=== PATIENT | female | born 1970 | race Caucasian/White ===

== ENCOUNTER 2020-02-21 08:16 | Emergency (ER) | payer OTHER, SELFPAY ==
--- NOTE | 2020-02-21 08:30 | ED.LOWEXIN ---
HPI - Extremity Injury (Lower) General Chief Complaint: Extremity Injury, Lower Stated Complaint: pain big toe left foot Time Seen by Provider: 02/21/20 08:29 Source: patient Mode of arrival: ambulatory Limitations: no limitations History of Present Illness HPI Narrative: Patient presents in a hard walking shoe, has a transmetarsal amputation with ulceration follow at wound clinic, now saying increased pain and swelling since Friday Related Data Previous Rx's Medication Instructions Recorded ciprofloxacin HCl [Cipro] 500 mg PO BID #20 tab 02/21/20 Allergies Allergy/AdvReac Type Severity Reaction Status Date / Time No Known Allergies Allergy Unverified 01/06/20 18:56 [No Known Allergies*] Review of Systems Constitutional: Constitutional: Reports no additional constitutional complaints Eyes: Eyes: Reports no additional eye complaints ENT: Denies dizziness Cardiovascular: Cardiovascular: Reports no additional cardiovascular complaints Respiratory: Respiratory: Reports as per HPI Gastrointestinal: Gastrointestinal: Reports no additional gastrointestinal complaints Genitourinary: Genitourinary: Reports no additional female genitourinary complaints Musculoskeletal: Musculoskeletal: Reports no additional musculoskeletal complaints Integumentary/Breasts: Skin/Breast: Denies rash Neurologic: Reports system reviewed and no additional complaints, except as documented, Denies dizziness and Denies Sensory deficit (Neuro) Psychiatric: Psychiatric: Denies anxiety [facility] Past Medical History Medical History Amputated toe of left foot High cholesterol Hypertension Insulin dependent diabetes mellitus Neuropathy Social History Social History Smoking Status: Never smoker Use of substances other than those prescribed or required for medical reasons: No Advance Directives: No Advance Directives Information Provided: No Physical Exam Vital Signs: Vital Signs: Vital Signs Temp Pulse Resp BP Pulse Ox 02/21/20 11:35 85 17 170/88 H 02/21/20 10:00 96 16 165/76 H 98 02/21/20 09:02 98.5 F 92 18 157/76 H 96 02/21/20 08:45 98.5 F 94 16 169/85 H 96 Body Mass Index 34.7 Const: General: healthy appearing Nutritional Appearance: average body habitus Orientation/consciousness: oriented to person and patient oriented x3 Limitations: no limitations HENMT: Head: Yes normal to inspection Ears: external ears normal General nose exam: Normal external nose present Mouth: Normal oral and palatal mucosa present and oropharynx normal Throat: Yes posterior oropharynx normal Eyes: General: appearance normal, both eyes and all related structures Neck: Other: supple Neck: Yes normal visual inspection Chest: Chest palpation & inspection: normal inspection of the chest Resp: Auscultation: clear to auscultation bilaterally Cardio: Jugular venous distension: no JVD Rate: regular rate Rhythm: regular rhythm Heart sounds: S1 normal heart sound present and S2 normal heart sound present GI: Inspection: Yes normal to inspection Palpation (GI): Soft to palpation, nontender and No hepatosplenomegaly present Auscultation: normal bowel sounds : General: Yes no CVA tenderness Back/Spine/Pelvis: Back: no CVA tenderness Skin: Other: let foot with transmetarasal amputation, foot ulceration, slight erythema to dorsal foot area Neuro: General: oriented to person and patient oriented x3 Cranial nerves: Yes CN's II-XII intact bilaterally Motor exam (neuro): 5/5 motor strength present throughout Sensory Exam: No Sensory deficit (Neuro) Extrem: General: Yes normal to inspection Psych: Appearance: grossly normal Course Course Course Narrative: discussed with Dr. Peguero will start patient on cipro and follow up with Dr. Peguero and wound care MDM - Extremity Injury (Lower) MDM Narrative Medical decision making narrative: no evidence of osteo or bone break down, patient not toxic Lab Data Result diagrams: 02/21/20 09:32 02/21/20 09:24 Labs: Lab Results 02/21/20 02/21/20 02/21/20 Range/Units 09:23 09:24 09:32 WBC 12.8 H (4.8-10.8) X10*3/uL RBC 4.03 L (4.20-5.50) X10*6/uL Hgb 10.9 L (12.0-16.0) g/dl Hct 33.6 L (37-47) % MCV 83.4 (80-98) fL MCH 27.0 (27.0-33.0) pg MCHC 32.4 (31.0-35.0) g/dl RDW 13.0 (11.0-16.0) % Plt Count 385 (160-400) X10*3/uL MPV 10.6 (9.4-12.3) fL Immature Gran % (Auto) 0.4 (0.0-0.4) % Neut % (Auto) 61.8 (45-73) % Lymph % (Auto) 24.8 (20-40) % [place] % (Auto) 9.1 (2-11) % Eos % (Auto) 3.0 (0-4) % Baso % (Auto) 0.9 (0-2) % Lymph # (Auto) 3.2 (1.2-4.9) X10*3/uL [place] # (Auto) 1.2 (0.1-1.2) X10*3/uL Eos # (Auto) 0.4 (0.0-0.4) X10*3/uL Baso # (Auto) 0.1 (0.0-0.2) X10*3/uL Abs Immat Gran (auto) 0.05 H (0.00-0.03) X10*3/uL Absolute Neuts (auto) 7.9 (2.0-8.3) X10*3/uL Absolute Nucleated RBC 0.000 (0.0-0.012) X10*3/uL Nucleated RBC % (auto) 0.0 (0.0-0.2) /100WBC ESR (0-20) MM/HR Sodium 134 L (135-145) mmol/L Potassium 4.4 (3.3-5.1) mmol/l Chloride 101 (96-108) mmol/L Carbon Dioxide 21 L (22-29) mmol/L Anion Gap 16 (12-20) BUN 14 (9-16) mg/dL Creatinine 1.23 (0.5-1.4) mg/dL Estim Creat Clear Calc 57.0 Estimated GFR 47 POC Glucose (60-115) mg/dL Random Glucose 461 H* (60-115) mg/dL Calcium 7.6 L (8.4-10.2) mg/dL C-Reactive Protein 11.62 H (< or = 0.50) mg/dL C-React Prot High Sens Cancelled 02/21/20 02/21/20 Range/Units 09:32 11:55 WBC (4.8-10.8) X10*3/uL RBC (4.20-5.50) X10*6/uL Hgb (12.0-16.0) g/dl Hct (37-47) % MCV (80-98) fL MCH (27.0-33.0) pg MCHC (31.0-35.0) g/dl RDW (11.0-16.0) % Plt Count (160-400) X10*3/uL MPV (9.4-12.3) fL Immature Gran % (Auto) (0.0-0.4) % Neut % (Auto) (45-73) % Lymph % (Auto) (20-40) % [place] % (Auto) (2-11) % Eos % (Auto) (0-4) % Baso % (Auto) (0-2) % Lymph # (Auto) (1.2-4.9) X10*3/uL [place] # (Auto) (0.1-1.2) X10*3/uL Eos # (Auto) (0.0-0.4) X10*3/uL Baso # (Auto) (0.0-0.2) X10*3/uL Abs Immat Gran (auto) (0.00-0.03) X10*3/uL Absolute Neuts (auto) (2.0-8.3) X10*3/uL Absolute Nucleated RBC (0.0-0.012) X10*3/uL Nucleated RBC % (auto) (0.0-0.2) /100WBC ESR 91 H (0-20) MM/HR Sodium (135-145) mmol/L Potassium (3.3-5.1) mmol/l Chloride (96-108) mmol/L Carbon Dioxide (22-29) mmol/L Anion Gap (12-20) BUN (9-16) mg/dL Creatinine (0.5-1.4) mg/dL Estim Creat Clear Calc Estimated GFR POC Glucose 326 H (60-115) mg/dL Random Glucose (60-115) mg/dL Calcium (8.4-10.2) mg/dL C-Reactive Protein (< or = 0.50) mg/dL C-React Prot High Sens Discharge Plan Discharge Clinical Impression: Diabetic foot infection Patient Disposition: Home, Self-Care Instructions: Diabetic Foot Ulcers (ED) Additional Instructions: Must see Dr. peguero and the wound clinic this week for follow up of foot infection Prescriptions: New ciprofloxacin HCl [Cipro] 500 mg tablet 500 mg PO BID Qty: 20 RF: 0 Referrals: Farhana Ellison MD [Primary Care Provider] - 2 days John Peguero MD [Physician] - 2 days
--- NOTE | 2020-02-21 08:42 | XR_ITS ---
EXAMINATION: XR FOOT, LEFT CLINICAL INFORMATION: Left foot amputation. Rule out osteomyelitis and gas COMPARISON: None TECHNIQUE: AP, lateral, and oblique views of the left foot. FINDINGS: There is amputation of left foot beyond the proximal metatarsals. There is a large soft tissue ulcer along the plantar aspect of the first digit. No bony erosive changes, periosteal thickening or lytic process seen. There is moderate soft tissue swelling with likely gas along the medial aspect of plantar foot. There is a small calcaneal heel spur. The ankle mortise and subtalar joints are normal. XR/XR foot LT min 3V IMPRESSION: Amputation of left foot beyond the proximal metatarsals. No bony erosive changes or periosteal thickening of lucency. 2 suspect gastroenteritis. There is an also seen along the dorsal aspect of the first proximal metatarsal. There is moderate soft tissue swelling and gas seen along the medial aspect of plantar foot question abscess. Correlate with CT.
[2020-02-21 08:45] VITALS: BP 169/85; PULSE 94; RESP 16; TEMP 36.9; O2SAT 96; BMI 34.7
[2020-02-21 09:02] VITALS: BP 157/76; PULSE 92; RESP 18; TEMP 36.9; O2SAT 96
[2020-02-21 09:38] LABS: MANUAL DIFF FLAG NO
[2020-02-21 09:40] LABS: Basophils Absolute Auto 0.1 X10*3/uL (0.0-0.2); Basophils Percent Auto 0.9 % (0-2); Eosinophils Absolute Auto 0.4 X10*3/uL (0.0-0.4); Hematocrit 33.6 % (37-47); Hemoglobin 10.9 g/dl (12.0-16.0); Imm Gran Abs Auto 0.05 X10*3/uL (0.00-0.03); Imm Gran Pct Auto 0.4 % (0.0-0.4); Lymphocytes Absolute Auto 3.2 X10*3/uL (1.2-4.9); Lymphocytes Percent Auto 24.8 % (20-40); Mean Corpuscular HGB Conc 32.4 g/dl (31.0-35.0); Mean Corpuscular Volume 83.4 fL (80-98); Mean Platelet Volume 10.6 fL (9.4-12.3); Monocytes Absolute Auto 1.2 X10*3/uL (0.1-1.2); Monocytes Percent Auto 9.1 % (2-11); Neutrophils Absolute Auto 7.9 X10*3/uL (2.0-8.3); Neutrophils Percent Auto 61.8 % (45-73); Platelet Count 385 X10*3/uL (160-400); Red Blood Count 4.03 X10*6/uL (4.20-5.50); White Blood Count 12.8 X10*3/uL (4.8-10.8)
[2020-02-21 10:00] VITALS: BP 165/76; PULSE 96; RESP 16; O2SAT 98
[2020-02-21 10:30] LABS: Anion Gap 16 (12-20); Blood Urea Nitrogen 14 mg/dL (9-16); C Reactive Protein 11.62 mg/dL (< or = 0.50); Calcium 7.6 mg/dL (8.4-10.2); Carbon Dioxide 21 mmol/L (22-29); Chloride 101 mmol/L (96-108); Estimated Glomerular Filt Rate 47; Glucose Random 461 mg/dL (60-115); Potassium 4.4 mmol/l (3.3-5.1); Sodium 134 mmol/L (135-145)
[2020-02-21 10:41] LABS: Erythrocyte Sedimentation Rate 91 MM/HR (0-20)
[2020-02-21] MEDS: Insulin Regular, Human 100 UNIT/ML 3 ML VIAL 10 UNIT SUBCUT (11:04)
[2020-02-21] MEDS: levoFLOXacin 500 MG TABLET PO (11:04)
[2020-02-21] MEDS: Ketorolac Tromethamine 60 MG/2 ML VIAL IM (11:05)
[2020-02-21 11:35] VITALS: BP 170/88; PULSE 85; RESP 17
[2020-02-21 11:58] LABS: Glucose, Whole Blood 326 mg/dL (60-115)
== END 2020-02-21 13:40 | disposition home or self-care (01) ==
PROVIDERS: Emergency Provider Emergency Medicine; PCP Internal Medicine
DX: L08.9 Local infection of the skin and subcutaneous tissue, unspecified (principal); Z79.899 Other long term (current) drug therapy; I10 Essential (primary) hypertension; E11.9 Type 2 diabetes mellitus without complications; Z79.4 Long term (current) use of insulin; M79.672 Pain in left foot
CPT/HCPCS: 36415; 73630; 80048; 82947; 85025; 85652; 86140; 96372; 99284; J1885

== ENCOUNTER 2020-02-23 15:31 | Outpatient (REF) | payer OTHER, SELFPAY | END 2020-02-23 15:32 | disposition home or self-care (01) | LOC: HO.LNP 15:31 | PROVIDERS: Visit Provider Surgery | DX: Z13.89 Encounter for screening for other disorder (principal) ==

== ENCOUNTER 2020-03-18 17:56 | Inpatient (IN) | payer OTHER, SELFPAY ==
[2020-03-18 18:18] VITALS: BP 169/76; PULSE 93; RESP 18; TEMP 38; O2SAT 99; BMI 37.8
[2020-03-18] MEDS: Acetaminophen 325 MG TABLET 650 MG PO (18:23)
[2020-03-18 19:46] VITALS: BP 181/90; PULSE 94; RESP 18; TEMP 37.1; O2SAT 99
--- NOTE | 2020-03-18 20:45 | CT_ITS ---
EXAMINATION: CT WITH CONTRAST FOOT, LEFT CLINICAL INFORMATION: Evaluate for osteomyelitis. COMPARISON: Radiographs 02/21/2020 TECHNIQUE: CT of the left hindfoot is performed following intravenous administration of 85 mL Omnipaque 350 iodinated contrast. Sagittal and coronal reformats were performed. This CT examination was performed using dose optimization techniques as appropriate, variously including the following: *Automated exposure control *Adjustment of mA and/or kV according to patient size (this includes techniques or standardized protocols for targeted exams where dose is matched to indication/reason for exam; i.e. extremities or head) *Use of iterative reconstruction technique DLP: 158 FINDINGS: There is been an amputation across the proximal metatarsals. There is a soft tissue defect/ulcer at the plantar aspect of the stump. Soft tissue gas extends medial and dorsal to the medial cuneiform. Fluid and foci of air extend proximally along the extensor digitorum longus tendon sheath above the level of the ankle joint, beyond the imaged [id number]. There is cortical irregularity/destruction of the medial cuneiform at the distal and lateral aspects with fragmentation and intraosseous foci of air consistent with osteomyelitis. CT/CT foot LT w con IMPRESSION: Soft tissue ulceration with sinus tract extending along the distal and plantar aspects of the stump, to the medial cuneiform which is fragmented and irregular with intraosseous foci of air compatible with osteomyelitis. Septic tenosynovitis with fluid and foci of air extending proximally within the extensor digitorum longus tendon sheath.
[2020-03-18] MEDS: 0.9 % Sodium Chloride 1,000 ML 999 ML IVCONT (21:08)
--- NOTE | 2020-03-18 21:12 | PC.NURSE ---
wound to left foot access by this nurse and provider. Red area marked. positive pulse by Doppler and marked.Iv line placed, blood cultures and labs collected. medicated per Jun.
[2020-03-18 21:13] LABS: Basophils Absolute Auto 0.1 X10*3/uL (0.0-0.2); Basophils Percent Auto 0.6 % (0-2); Eosinophils Absolute Auto 0.6 X10*3/uL (0.0-0.4); Eosinophils Percent Auto 3.3 % (0-4); Hematocrit 33.9 % (37-47); Hemoglobin 10.9 g/dl (12.0-16.0); Imm Gran Abs Auto 0.09 X10*3/uL (0.00-0.03); Imm Gran Pct Auto 0.5 % (0.0-0.4); Lymphocytes Percent Auto 10.4 % (20-40); MANUAL DIFF FLAG NO; Mean Corpuscular HGB Conc 32.2 g/dl (31.0-35.0); Mean Corpuscular Hemoglobin 26.4 pg (27.0-33.0); Mean Corpuscular Volume 82.1 fL (80-98); Mean Platelet Volume 9.8 fL (9.4-12.3); Monocytes Absolute Auto 1.5 X10*3/uL (0.1-1.2); Monocytes Percent Auto 7.8 % (2-11); Neutrophils Absolute Auto 15.1 X10*3/uL (2.0-8.3); Neutrophils Percent Auto 77.4 % (45-73); Platelet Count 537 X10*3/uL (160-400); Red Blood Count 4.13 X10*6/uL (4.20-5.50); Red Cell Distribution Width 12.7 % (11.0-16.0); SCAN SMEAR FLAG 1; White Blood Count 19.4 X10*3/uL (4.8-10.8)
[2020-03-18] MEDS: Morphine Sulfate 4 MG/ML CARTRIDGE 2 MG IVPUSH (21:17)
--- NOTE | 2020-03-18 21:41 | ED_ITS ---
HPI - General Adult General Chief complaint: Recheck/Abnormal Lab/Rx Stated complaint: wound check Time Seen by Provider: 03/18/20 19:02 Source: patient Mode of arrival: ambulatory Limitations: no limitations History of Present Illness HPI narrative: patient comes to the emergency room complaining of left foot pain and swelling. Patient states she is being seen at the Wound Clinic, on Friday she was placed on linezolid, however since then the wound has been getting more red, swollen, now patient has pain from the tip of the foot to the ankle. Patient has been complaining of fever as well. patient states that prior to starting linezolid, she completed a round of antibiotics with ciprofloxacin. Patient was told in the wound clinic that if the course of linezolid would work, she would need a PICC line for a prolonged course of IV antibiotics MD complaint: foot infection Related Data Previous Rx's Medication Instructions Recorded ciprofloxacin HCl [Cipro] 500 mg PO BID #20 tab 02/21/20 Allergies Allergy/AdvReac Type Severity Reaction Status Date / Time No Known Allergies Allergy Verified 03/18/20 18:18 [No Known Allergies*] Review of Systems Review of Systems: Constitutional : No Weight loss, complaining of fever and chills, no Night Sweats, No Fatigue, No Malaise ENT/Mouth : No Hearing loss, No Ear Pain, No Nasal Congestion, No Sinus Pain, No Hoarseness, No sore throat, No Rhinorrhea, No Swallowing Difficulty Eyes: No Eye Pain, No Swelling, No Redness, No Foreign Body, No Discharge, No Vision Changes Cardiovascular : No Chest Pain, No SOB, No Dyspnea on Exertion, No Orthopnea, No Edema, No Palpitations Respiratory : No Cough, No Sputum, No Wheezing, No Smoke Exposure, No Dyspnea Gastrointestinal : No Nausea, No Vomiting, No Diarrhea, No Constipation, No abdominal Pain, No Hematochezia, No Melena Genitourinary : no irregular bleeding, No Dysuria, No Urinary Frequency, No Hematuria, No Urinary Incontinence, No Urgency, No Flank Pain, No Urinary Flow Changes, No Hesitancy Musculoskeletal : No joint pain, No Myalgias, No Joint Swelling Skin : patient has a 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 Neuro : No Weakness, No Numbness, No Paresthesias, No Loss of Consciousness, No Dizziness, No Headache Psych : No Anxiety/Panic, No Depression, No SI/HI/AH/VH, No Social Issues, Heme/Lymph: No Bruising, No Bleeding,No Lymphadenopathy Endocrine : No Polyuria, No Polydipsia, No Temperature Intolerance [facility] Past Medical History Medical History Amputated toe of left foot High cholesterol Hypertension Insulin dependent diabetes mellitus Neuropathy Social History Social History Smoking Status: Never smoker Smoked in Last 30 Days: No Use of substances other than those prescribed or required for medical reasons: No Advance Directives: No Advance Directives Information Provided: Yes Physical Exam Vital Signs: Vital Signs: Last Vital Signs Temp 97.8 F 03/18/20 22:18 Pulse 87 03/18/20 22:18 Resp 16 03/18/20 22:18 BP 154/67 H 03/18/20 22:18 Pulse Ox 93 03/18/20 22:18 Body Mass Index 37.8 Appearance: Alert. Oriented X3. No acute distress. Eyes: Pupils equal, round and reactive to light. ENT: Pharynx normal. Neck: Normal inspection. Neck supple. No lymph nodes noted. No crepitus CVS: Normal heart rate and rhythm. Pulses normal. Normal S1 and S2 Respiratory: No respiratory distress. Breath sounds normal. No Wheezing. No rales Abdomen: Soft and nontender. No rigidity. No distention. good BS x4 Skin: Skin warm and dry. see below Extremities: patient has chronic amputation of toes on the left foot, chronic open wound on plantar aspect draining serosanguineous material. Patient's foot feels boggy to palpation, has crepitus Neuro: Oriented X 3. No motor deficit. No sensory deficit. Moving all extermities. No slurred speech. Course Course Course Narrative: I discussed the CT findings with the patient, it is possible that she may need surgical intervention for her foot, including further amputation. Patient admitted by our hospitalist, tomorrow Dr. Peguero will be consulted. Patient received 2 L of fluid, for patient's ideal weight she needs to receive 1500 mL of normal saline, patient was given 1 dose of Zosyn and vancomycin. Medical Decision Making Lab Data Result diagrams: 03/18/20 21:02 03/18/20 21:02 Labs: Lab Results 03/18/20 03/18/20 03/18/20 Range/Units 21:02 21:02 21:02 WBC 19.4 H (4.8-10.8) X10*3/uL RBC 4.13 L (4.20-5.50) X10*6/uL Hgb 10.9 L (12.0-16.0) g/dl Hct 33.9 L (37-47) % MCV 82.1 (80-98) fL MCH 26.4 L (27.0-33.0) pg MCHC 32.2 (31.0-35.0) g/dl RDW 12.7 (11.0-16.0) % Plt Count 537 H D (160-400) X10*3/uL MPV 9.8 (9.4-12.3) fL Immature Gran % (Auto) 0.5 H (0.0-0.4) % Neut % (Auto) 77.4 H (45-73) % Lymph % (Auto) 10.4 L (20-40) % [place] % (Auto) 7.8 (2-11) % Eos % (Auto) 3.3 (0-4) % Baso % (Auto) 0.6 (0-2) % Lymph # (Auto) 2.0 (1.2-4.9) X10*3/uL [place] # (Auto) 1.5 H (0.1-1.2) X10*3/uL Eos # (Auto) 0.6 H (0.0-0.4) X10*3/uL Baso # (Auto) 0.1 (0.0-0.2) X10*3/uL Abs Immat Gran (auto) 0.09 H (0.00-0.03) X10*3/uL Absolute Neuts (auto) 15.1 H (2.0-8.3) X10*3/uL Absolute Nucleated RBC 0.000 (0.0-0.012) X10*3/uL Nucleated RBC % (auto) 0.0 (0.0-0.2) /100WBC ESR (0-20) MM/HR Sodium 138 (135-145) mmol/L Potassium 4.4 (3.3-5.1) mmol/l Chloride 102 (96-108) mmol/L Carbon Dioxide 26 (22-29) mmol/L Anion Gap 14 (12-20) BUN 14 (9-16) mg/dL Creatinine 0.82 (0.5-1.4) mg/dL Estim Creat Clear Calc 89.5 Estimated GFR > 60 Random Glucose 355 H* (60-115) mg/dL Lactic Acid 2.0 (0.5-2.0) mmol/L Calcium 8.5 D (8.4-10.2) mg/dL 03/18/20 Range/Units 21:02 WBC (4.8-10.8) X10*3/uL RBC (4.20-5.50) X10*6/uL Hgb (12.0-16.0) g/dl Hct (37-47) % MCV (80-98) fL MCH (27.0-33.0) pg MCHC (31.0-35.0) g/dl RDW (11.0-16.0) % Plt Count (160-400) X10*3/uL MPV (9.4-12.3) fL Immature Gran % (Auto) (0.0-0.4) % Neut % (Auto) (45-73) % Lymph % (Auto) (20-40) % [place] % (Auto) (2-11) % Eos % (Auto) (0-4) % Baso % (Auto) (0-2) % Lymph # (Auto) (1.2-4.9) X10*3/uL [place] # (Auto) (0.1-1.2) X10*3/uL Eos # (Auto) (0.0-0.4) X10*3/uL Baso # (Auto) (0.0-0.2) X10*3/uL Abs Immat Gran (auto) (0.00-0.03) X10*3/uL Absolute Neuts (auto) (2.0-8.3) X10*3/uL Absolute Nucleated RBC (0.0-0.012) X10*3/uL Nucleated RBC % (auto) (0.0-0.2) /100WBC ESR 99 H (0-20) MM/HR Sodium (135-145) mmol/L Potassium (3.3-5.1) mmol/l Chloride (96-108) mmol/L Carbon Dioxide (22-29) mmol/L Anion Gap (12-20) BUN (9-16) mg/dL Creatinine (0.5-1.4) mg/dL Estim Creat Clear Calc Estimated GFR Random Glucose (60-115) mg/dL Lactic Acid (0.5-2.0) mmol/L Calcium (8.4-10.2) mg/dL Imaging Data foot ct: Radiologist's impression: There is been an amputation across the proximal metatarsals. There is a soft tissue defect/ulcer at the plantar aspect of the stump. Soft tissue gas extends medial and dorsal to the medial cuneiform. Fluid and foci of air extend proximally along the extensor digitorum longus tendon sheath above the level of the ankle joint, beyond the imaged [id number]. There is cortical irregularity/destruction of the medial cuneiform at the distal and lateral aspects with fragmentation and intraosseous foci of air consistent with osteomyelitis. CT/CT foot LT w con IMPRESSION: Soft tissue ulceration with sinus tract extending along the distal and plantar aspects of the stump, to the medial cuneiform which is fragmented and irregular with intraosseous foci of air compatible with osteomyelitis. Septic tenosynovitis with fluid and foci of air extending proximally within the extensor digitorum longus tendon sheath. Discharge Plan Discharge Clinical Impression: Chronic osteomyelitis of foot, Diabetic foot ulcer with osteomyelitis Sepsis Qualifiers: Sepsis type: sepsis due to unspecified organism Sepsis acute organ dysfunction status: unspecified Qualified Code(s): A41.9 - Sepsis, unspecified organism Patient Disposition: Admitted As Inpatient
[2020-03-18 21:43] LABS: Anion Gap 14 (12-20); Blood Urea Nitrogen 14 mg/dL (9-16); Calcium 8.5 mg/dL (8.4-10.2); Carbon Dioxide 26 mmol/L (22-29); Chloride 102 mmol/L (96-108); Creatinine Clr Calc Pharmacy 89.5; Estimated Glomerular Filt Rate > 60; Glucose Random 355 mg/dL (60-115); Potassium 4.4 mmol/l (3.3-5.1); Sodium 138 mmol/L (135-145)
[2020-03-18 22:05] LABS: Erythrocyte Sedimentation Rate 99 MM/HR (0-20)
[2020-03-18] MEDS: iohexoL 350 MG/ML 100 ML INFUS..BTL IV (22:07)
[2020-03-18] MEDS: Insulin Regular, Human 100 UNIT/ML 3 ML VIAL 10 UNIT IVPUSH (22:16)
[2020-03-18 22:18] VITALS: BP 154/67; PULSE 87; RESP 16; TEMP 36.6; O2SAT 93
[2020-03-19] VITALS (10 sets, daily range): BP systolic 134–168; BP diastolic 62–82; PULSE 76–88; RESP 16–20; TEMP 36.2–36.8; O2SAT 93–100; BMI 39.6
[2020-03-19] MEDS: Piperacillin Sodium/Tazobactam 4.5 GM in 0.9 % Sodium Chloride 100 ML IV (00:52)
--- NOTE | 2020-03-19 00:55 | PC.NURSE ---
antibiotics given late due to be with being with another pt.
[2020-03-19] MEDS: 0.9 % Sodium Chloride 1,000 ML 999 ML IVCONT (01:24)
--- NOTE | 2020-03-19 02:28 | PC.NURSE ---
Pt resting in bed.
--- NOTE | 2020-03-19 03:46 | PC.NURSE ---
Pt ambulate to the bathroom with assist. pt awaiting bed
--- NOTE | 2020-03-19 04:16 | PM.IMHP ---
History of Present Illness Date of Service: 03/19/20 Chief Complaint: left foot infected wound 49 y/o female with extended PMHX including nonhealing left foot diabetic ulcer who presented from home due to on and off episodes of fever for the past 4 days. 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 Per patient since end of last year 2019 has been having a nonhealing wound in the area of the stump which has been getting worse since. Patient was evaluated at the wound care clinic on friday after a bone biopsy was performed recently and was started on linezolid BID per cultures results. Patient reports that has been feeling worse in the past days for what decided to come to the ED for further evaluation. On presentation to the ED there was no evidence of fever. WBC of 19.4. CT of LLE concerning for OM. Patient was given one dose of Vanco and Zosyn and decision for admission was given. Patient was seen and evaluated at the bedside, infected wound draining serosanguineous fluids, tender to touch and surrounded erythema, hot to touch. ROS as above otherwise negative. PMHx: DM Hypertension Hyperlipidemia Psx: TMA left foot with most recent debridement 07/05/2019. Toxic habits: No hx of alcohol abuse, smoking or IVDA Review of Systems Constitutional: Constitutional: Reports malaise and Reports other (fever) Musculoskeletal: Musculoskeletal: Reports other (Left leg pain) [facility] Medical History Amputated toe of left foot High cholesterol Hypertension Insulin dependent diabetes mellitus Neuropathy Functional capacity: uses cane/walker Social History Smoking Status: Never smoker Smoked in Last 30 Days: No Use of substances other than those prescribed or required for medical reasons: No Advance Directives: No Advance Directives Information Provided: Yes Meds Allergies Allergy/AdvReac Type Severity Reaction Status Date / Time No Known Allergies Allergy Verified 03/18/20 18:18 [No Known Allergies*] Home Medications Medication Instructions Recorded Confirmed Type Lantus U-100 Insulin 50 units BEDTIME 03/19/20 03/19/20 History Plavix 40 mg DAILY 03/19/20 03/19/20 History amlodipine 1 tab PO DAILY 03/19/20 03/19/20 History atorvastatin 1 tab PO BEDTIME 03/19/20 03/19/20 History furosemide 1 tab PO DAILY 03/19/20 03/19/20 History gabapentin 1 cap PO TID 03/19/20 03/19/20 History insulin aspart U-100 [Novolog 20 unit SUBCUT TIDAC 03/19/20 03/19/20 History U-100 Insulin aspart] linezolid 1 tab PO BID 03/19/20 03/19/20 History lisinopril 1 tab PO DAILY 03/19/20 03/19/20 History Physical Exam Vital Signs and Narrative: Vital Signs: Last Vital Signs Temp 98.0 F 03/19/20 01:26 Pulse 88 03/19/20 01:26 Resp 18 03/19/20 01:26 BP 142/74 H 03/19/20 01:26 Pulse Ox 98 03/19/20 01:26 Body Mass Index 37.8 Const: General: cooperative and comfortable Orientation/consciousness: oriented to person, oriented to place and oriented to time HENMT: Head: Yes normal to inspection Eyes: General: appearance normal, both eyes and all related structures Neck: Yes normal visual inspection Chest: Chest palpation & inspection: normal inspection of the chest Resp: Effort & Inspection: normal respiratory effort Cardio: Jugular venous distension: no JVD Rate: regular rate Rhythm: regular rhythm Heart sounds: S1 normal heart sound present and S2 normal heart sound present GI: Inspection: Yes normal to inspection Skin: Lesions: other (left foot infected diabetic ulcer ) Neuro: General: oriented to person, oriented to place and oriented to time Cognition (Neuro): normal cognition Extrem: General: Yes other (s/p MTA of LLE. ) Psych: Appearance: grossly normal Results Labs CBC and Chem 7: 03/18/20 21:02 03/18/20 21:02 Labs: Laboratory Results - last 24 hr 03/18/20 03/18/20 03/18/20 21:02 21:02 21:02 MCV 82.1 MCH 26.4 L MCHC 32.2 RDW 12.7 Plt Count 537 H D MPV 9.8 Immature Gran % (Auto) 0.5 H Neut % (Auto) 77.4 H Lymph % (Auto) 10.4 L [place] % (Auto) 7.8 Eos % (Auto) 3.3 Baso % (Auto) 0.6 Lymph # (Auto) 2.0 [place] # (Auto) 1.5 H Eos # (Auto) 0.6 H Baso # (Auto) 0.1 Abs Immat Gran (auto) 0.09 H Absolute Neuts (auto) 15.1 H Absolute Nucleated RBC 0.000 Nucleated RBC % (auto) 0.0 ESR Anion Gap 14 Estim Creat Clear Calc 89.5 Estimated GFR > 60 Random Glucose 355 H* Lactic Acid 2.0 Calcium 8.5 D 03/18/20 21:02 MCV MCH MCHC RDW Plt Count MPV Immature Gran % (Auto) Neut % (Auto) Lymph % (Auto) [place] % (Auto) Eos % (Auto) Baso % (Auto) Lymph # (Auto) [place] # (Auto) Eos # (Auto) Baso # (Auto) Abs Immat Gran (auto) Absolute Neuts (auto) Absolute Nucleated RBC Nucleated RBC % (auto) ESR 99 H Anion Gap Estim Creat Clear Calc Estimated GFR Random Glucose Lactic Acid Calcium Imaging Radiologist's Impressions: Impressions Foot CT 03/18/20 20:45 IMPRESSION: Soft tissue ulceration with sinus tract extending along the distal and plantar aspects of the stump, to the medial cuneiform which is fragmented and irregular with intraosseous foci of air compatible with osteomyelitis. Septic tenosynovitis with fluid and foci of air extending proximally within the extensor digitorum longus tendon sheath. Assessment and Plan (1) Diabetic foot ulcer with osteomyelitis: Status: Acute Continue with vancomycin as ordered for MRSA coverage Continue with Zosyn for gram neg coverage Follow up Bcx General surgery consult for bone culture Infectious disease consult in the am (2) Diabetes: Status: Acute Insulin regimen as ordered continue with gabapenin home dose (3) Hypertension: Status: Acute continue with amlodipine home dose continue with furosemide home dose (4) High cholesterol: Status: Acute continue with atorva home dose
[2020-03-19 04:49] LABS: COVID-19 Test Negative (Negative)
--- NOTE | 2020-03-19 05:35 | PC.NURSE ---
Called to give report and spoke to Stacie. Nurse will be calling me back.
--- NOTE | 2020-03-19 06:15 | PC.NURSE ---
pt transfer to unit and belongings list completed.
[2020-03-19] MEDS: Heparin Sodium,Porcine 5,000 UNIT/ML VIAL 5000 UNIT SUBCUT ×3 (06:30→20:51)
[2020-03-19] MEDS: Piperacillin Sodium/Tazobactam 3.375 GM in 0.9 % Sodium Chloride 50 ML IV ×3 (06:33→20:51)
[2020-03-19 07:47] LABS: Glucose, Whole Blood 141 mg/dL (60-115)
[2020-03-19 08:04] LABS: Basophils Absolute Auto 0.1 X10*3/uL (0.0-0.2); Basophils Percent Auto 0.6 % (0-2); Eosinophils Absolute Auto 0.8 X10*3/uL (0.0-0.4); Eosinophils Percent Auto 4.4 % (0-4); Hematocrit 31.2 % (37-47); Hemoglobin 9.9 g/dl (12.0-16.0); Imm Gran Abs Auto 0.11 X10*3/uL (0.00-0.03); Imm Gran Pct Auto 0.6 % (0.0-0.4); Lymphocytes Absolute Auto 2.6 X10*3/uL (1.2-4.9); Lymphocytes Percent Auto 14.9 % (20-40); MANUAL DIFF FLAG SCAN; Mean Corpuscular HGB Conc 31.7 g/dl (31.0-35.0); Mean Corpuscular Hemoglobin 26.1 pg (27.0-33.0); Mean Corpuscular Volume 82.1 fL (80-98); Mean Platelet Volume 9.6 fL (9.4-12.3); Monocytes Absolute Auto 1.6 X10*3/uL (0.1-1.2); Monocytes Percent Auto 9.3 % (2-11); Neutrophils Absolute Auto 12.2 X10*3/uL (2.0-8.3); Neutrophils Percent Auto 70.2 % (45-73); Platelet Count 478 X10*3/uL (160-400); Red Cell Distribution Width 12.9 % (11.0-16.0); SCAN SMEAR FLAG 1; White Blood Count 17.4 X10*3/uL (4.8-10.8)
[2020-03-19 08:21] LABS: SLIDE REVIEW VERIFIED
[2020-03-19 08:46] LABS: Anion Gap 13 (12-20); Blood Urea Nitrogen 10 mg/dL (9-16); Calcium 7.7 mg/dL (8.4-10.2); Carbon Dioxide 24 mmol/L (22-29); Chloride 106 mmol/L (96-108); Creatinine Clr Calc Pharmacy 110.9; Estimated Glomerular Filt Rate > 60; Glucose Random 139 mg/dL (60-115); Potassium 4.1 mmol/l (3.3-5.1); Sodium 139 mmol/L (135-145)
[2020-03-19] MEDS: lisinopriL 20 MG TABLET PO (08:49)
[2020-03-19] MEDS: Furosemide 40 MG TABLET PO (08:49)
[2020-03-19] MEDS: amLODIPine Besylate 10 MG TABLET PO (08:49)
[2020-03-19] MEDS: Gabapentin 300 MG CAPSULE PO ×3 (08:49→20:51)
[2020-03-19] MEDS: 0.9 % Sodium Chloride Flush 3 ML SYRINGE IVFLUSH ×2 (08:49→15:50)
--- NOTE | 2020-03-19 09:42 | PM.CNGS ---
History of Present Illness Consult details Consult date: 03/19/20 Requesting physician: Jesusita Gonzalez Narrative: Staci Shirley is a 49-year-old female with diabetes mellitus and a long history of a foot infection involving left foot. She is status post transmetatarsal amputation performed by Dr. Peguero. This was complicated by a nonhealing wound on the plantar surface. [facility] and a bone biopsy recently a performed. Patient presents today with increased pain and swelling of the left foot. She is admitted to the hospitalist service for IV antibiotics. Surgical consultation was requested for a possible bone biopsy. Review of Systems Constitutional: Constitutional: Denies chills, Denies fever(s), Denies headache(s) and Denies poor appetite ENT: Denies dizziness and Denies headache(s) Cardiovascular: Cardiovascular: Denies chest pain, Denies rapid heart rate, Denies palpitations and Denies slow heart rate Respiratory: Respiratory: Denies chest congestion, Denies cough, Denies pain on inspiration and Denies wheezing Gastrointestinal: Gastrointestinal: Denies abdominal pain, Denies bloating, Denies change in stool character, Denies constipation, Denies diarrhea, Denies nausea, Denies vomiting and Denies hematemesis Musculoskeletal: Musculoskeletal: Denies back pain, Denies arthralgias, Reports joint swelling and Reports numbness Integumentary/Breasts: Skin/Breast: Denies change in pigmentation, Denies erythema and Denies rash Neurologic: Denies confusion, Denies dizziness, Denies headache(s) and Reports numbness Psychiatric: Psychiatric: Denies anxiety, Denies confusion and Denies depression Endocrine: Endocrine: Denies palpitations Hematologic/Lymphatic: Hematologic/Lymphatic: Denies easy bleeding, Denies easy bruising and Denies lymphadenopathy Allergic/Immunologic: Allergic/Immunologic: Denies wheezing PMFSH Past Medical History Medical History Amputated toe of left foot High cholesterol Hypertension Insulin dependent diabetes mellitus Neuropathy Functional capacity: uses cane/walker Social History Social History Household Members: Spouse Household Members Other:: Housing: Apartment Do you presently have visiting nurse or other home services: Yes ([facility]) Smoking Status: Never smoker Smoked in Last 30 Days: No Use of substances other than those prescribed or required for medical reasons: No Currently Displaying Signs/Symptoms of Drug Intoxication Withdrawal: No Have you been hit, kicked, punched, or otherwise hurt by someone within the past year? If so, by whom?: No Do you feel safe in your current relationship?: Yes Is there a partner from a previous relationship who is making you feel unsafe now?: No Are you made to feel afraid or neglected: No Advance Directives: No Advance Directives Information Provided: Yes Do you have thoughts of harming others: None Do you have a plan to hurt others: No Plan Recently lost weight without trying: No Meds Allergies Allergy/AdvReac Type Severity Reaction Status Date / Time No Known Allergies Allergy Verified 03/18/20 18:18 [No Known Allergies*] Home Medications Medication Instructions Recorded Confirmed Type Lantus U-100 Insulin 50 units BEDTIME 03/19/20 03/19/20 History Plavix 40 mg DAILY 03/19/20 03/19/20 History amlodipine 1 tab PO DAILY 03/19/20 03/19/20 History atorvastatin 1 tab PO BEDTIME 03/19/20 03/19/20 History furosemide 1 tab PO DAILY 03/19/20 03/19/20 History gabapentin 1 cap PO TID 03/19/20 03/19/20 History insulin aspart U-100 [Novolog 20 unit SUBCUT TIDAC 03/19/20 03/19/20 History U-100 Insulin aspart] linezolid 1 tab PO BID 03/19/20 03/19/20 History lisinopril 1 tab PO DAILY 03/19/20 03/19/20 History Physical Exam Vital Signs: Vital Signs: Last Vital Signs Temp 97.2 F 03/19/20 07:41 Pulse 82 03/19/20 08:49 Resp 20 03/19/20 07:41 BP 145/62 H 03/19/20 08:49 Pulse Ox 94 03/19/20 07:41 Body Mass Index 39.6 Const: General: No confusion Nutritional Appearance: well nourished Orientation/consciousness: No confusion Eyes: Sclerae: sclerae normal EOM: EOMs intact bilaterally Neck: Neck: Yes normal visual inspection Resp: Effort & Inspection: normal respiratory effort, no cough and no respiratory distress Cardio: Jugular venous distension: no JVD Rate: regular rate Rhythm: regular rhythm GI: Inspection: Yes normal to inspection Palpation (GI): Soft to palpation, nontender, no guarding and not rigid Percussion: Yes normal to percussion Auscultation: normal bowel sounds Skin: General skin exam: dry skin Rashes: no rashes Neuro: General: No confusion Extrem: Other: Left foot status post transmetatarsal amputation with a well-healed incision on the ventral surface but an open wound on the plantar surface measuring approximately 2 cm in diameter. Wound extends deep towards the metatarsal stump. Foot is tender to palpation. There is mild erythema surrounding the wound. Ankle/foot/toe images: 1. status post transmetatarsal amputation 2. status post transmetatarsal amputation 3. Site of open wound Results Labs Result diagrams: 03/19/20 07:46 03/19/20 07:46 Labs: Abnormal lab results 03/18/20 03/18/20 03/18/20 Range/Units 21:02 21:02 21:02 WBC 19.4 H (4.8-10.8) X10*3/uL RBC 4.13 L (4.20-5.50) X10*6/uL Hgb 10.9 L (12.0-16.0) g/dl Hct 33.9 L (37-47) % MCH 26.4 L (27.0-33.0) pg Plt Count 537 H D (160-400) X10*3/uL Immature Gran % (Auto) 0.5 H (0.0-0.4) % Neut % (Auto) 77.4 H (45-73) % Lymph % (Auto) 10.4 L (20-40) % Eos % (Auto) (0-4) % [place] # (Auto) 1.5 H (0.1-1.2) X10*3/uL Eos # (Auto) 0.6 H (0.0-0.4) X10*3/uL Abs Immat Gran (auto) 0.09 H (0.00-0.03) X10*3/uL Absolute Neuts (auto) 15.1 H (2.0-8.3) X10*3/uL ESR 99 H (0-20) MM/HR POC Glucose (60-115) mg/dL Random Glucose 355 H* (60-115) mg/dL Calcium (8.4-10.2) mg/dL 03/19/20 03/19/20 03/19/20 Range/Units 07:43 07:46 07:46 WBC 17.4 H (4.8-10.8) X10*3/uL RBC 3.80 L (4.20-5.50) X10*6/uL Hgb 9.9 L (12.0-16.0) g/dl Hct 31.2 L (37-47) % MCH 26.1 L (27.0-33.0) pg Plt Count 478 H (160-400) X10*3/uL Immature Gran % (Auto) 0.6 H (0.0-0.4) % Neut % (Auto) (45-73) % Lymph % (Auto) 14.9 L (20-40) % Eos % (Auto) 4.4 H (0-4) % [place] # (Auto) 1.6 H (0.1-1.2) X10*3/uL Eos # (Auto) 0.8 H (0.0-0.4) X10*3/uL Abs Immat Gran (auto) 0.11 H (0.00-0.03) X10*3/uL Absolute Neuts (auto) 12.2 H (2.0-8.3) X10*3/uL ESR (0-20) MM/HR POC Glucose 141 H (60-115) mg/dL Random Glucose 139 H D (60-115) mg/dL Calcium 7.7 L D (8.4-10.2) mg/dL Short CBC 03/18/20 03/19/20 Range/Units 21:02 07:46 WBC 19.4 H 17.4 H (4.8-10.8) X10*3/uL Hgb 10.9 L 9.9 L (12.0-16.0) g/dl Hct 33.9 L 31.2 L (37-47) % Plt Count 537 H D 478 H (160-400) X10*3/uL BMP 03/18/20 03/19/20 21:02 07:46 Sodium 138 139 Potassium 4.4 4.1 Chloride 102 106 Carbon Dioxide 26 24 BUN 14 10 Creatinine 0.82 0.68 Calcium 8.5 D 7.7 L D All other labs normal. CT foot independently evaluated: EXAMINATION: CT WITH CONTRAST FOOT, LEFT CLINICAL INFORMATION: Evaluate for osteomyelitis. COMPARISON: Radiographs 02/21/2020 TECHNIQUE: CT of the left hindfoot is performed following intravenous administration of 85 mL Omnipaque 350 iodinated contrast. Sagittal and coronal reformats were performed. This CT examination was performed using dose optimization techniques as appropriate, variously including the following: *Automated exposure control *Adjustment of mA and/or kV according to patient size (this includes techniques or standardized protocols for targeted exams where dose is matched to indication/reason for exam; i.e. extremities or head) *Use of iterative reconstruction technique DLP: 158 FINDINGS: There is been an amputation across the proximal metatarsals. There is a soft tissue defect/ulcer at the plantar aspect of the stump. Soft tissue gas extends medial and dorsal to the medial cuneiform. Fluid and foci of air extend proximally along the extensor digitorum longus tendon sheath above the level of the ankle joint, beyond the imaged [id number]. There is cortical irregularity/destruction of the medial cuneiform at the distal and lateral aspects with fragmentation and intraosseous foci of air consistent with osteomyelitis. CT/CT foot LT w con IMPRESSION: Soft tissue ulceration with sinus tract extending along the distal and plantar aspects of the stump, to the medial cuneiform which is fragmented and irregular with intraosseous foci of air compatible with osteomyelitis. Septic tenosynovitis with fluid and foci of air extending proximally within the extensor digitorum longus tendon sheath. Assessment and Plan (1) Diabetic foot ulcer with osteomyelitis: Status: Acute patient presents with a nonhealing wound of the left foot status post transmetatarsal amputation with a long history of diabetes mellitus. CT of the foot reveals bony changes consistent with osteomyelitis as well as air bubbles extending up to and possibly be on the ankle. Consultation was for a bone biopsy although bone biopsy was recently obtained several weeks ago. Patient is wounds were previously managed by Dr. Peguero from vascular surgery. I will consult Dr. Peguero for further evaluation/management of this difficult wound.
[2020-03-19 11:21] LABS: Glucose, Whole Blood 170 mg/dL (60-115)
[2020-03-19] MEDS: Insulin Lispro 100 UNIT/ML 3 ML VIAL SUBCUT ×3 (12:02→20:51)
[2020-03-19] MEDS: oxyCODONE HCl Immed Release 5 MG TABLET PO (15:50)
--- NOTE | 2020-03-19 16:11 | P.PNIM_ITS ---
Subjective Subjective Date of Service: 03/20/20 Interval History: foot infections Review of Systems Still has foot pain, denies any fever or chills or any abdominal pain or shortness of breath or chest pain or urinary complaints. Physical Exam Vital Signs: Vital Signs: Last Vital Signs Temp 98.3 F 03/19/20 15:42 Pulse 82 03/19/20 15:42 Resp 20 03/19/20 15:42 BP 155/75 H 03/19/20 15:42 Pulse Ox 95 03/19/20 15:42 Body Mass Index 39.6 Physical exam: HEENT: Eyes anicteric, no discharge. Cvs: rrr, [id number] , no murmur. res: clear to auscultation ,no rhonchii or wheezing. abd: no rebound or guarding ,nt, bs present. ext : left foot tma. neuro: axo3 , nonfocal. Objective Data Current Medications Generic Name Dose Route Start Last Admin Trade Name Freq PRN Reason Stop Dose Admin Amlodipine Besylate 10 mg 03/19/20 09:00 03/19/20 08:49 Amlodipine Besylate 10 Mg Tablet PO 10 mg DAILY ANGÉLICA Administration Protocol Atorvastatin Calcium 80 mg 03/19/20 21:00 Atorvastatin Calcium 80 Mg Tablet PO BEDTIME ANGÉLICA Clopidogrel Bisulfate 75 mg 03/20/20 09:00 Clopidogrel Bisulfate 75 Mg Tablet PO DAILY ANGÉLICA Furosemide 40 mg 03/19/20 08:00 03/19/20 08:49 Furosemide 40 Mg Tablet PO 40 mg DAILY@0800 ANGÉLICA Administration Protocol Gabapentin 300 mg 03/19/20 09:00 03/19/20 14:15 Gabapentin 300 Mg Capsule PO 300 mg TID ANGÉLICA Administration Heparin Sodium (Porcine) 5,000 unit 03/19/20 05:00 03/19/20 14:14 Heparin Sodium,Porcine 5,000 Unit/Ml Vial SUBCUT 5,000 unit Q8H ANGÉLICA Administration Piperacillin Sod/Tazobactam 50 mls @ 100 mls/hr 03/19/20 07:00 03/19/20 15:20 Sod 3.375 gm/ Sodium Chloride IV Infused Q6H ANGÉLICA Infusion Vancomycin HCl 750 mg/ 275 mls @ 183.333 mls/hr 03/19/20 12:00 03/19/20 14:22 Vancomycin HCl 500 mg/ Sodium IV Infused Chloride Q12H ANGÉLICA Infusion Insulin Human Lispro 0 unit 03/19/20 07:30 03/19/20 12:02 Insulin Lispro 100 Unit/Ml 3 Ml Vial SUBCUT 03/20/20 04:11 2 unit QIDACHS [facility] Administration Protocol Lisinopril 20 mg 03/19/20 09:00 03/19/20 08:49 Lisinopril 20 Mg Tablet PO 20 mg DAILY ANGÉLICA Administration Protocol Oxycodone HCl 5 mg 03/19/20 15:33 03/19/20 15:50 Oxycodone Hcl Immed Release 5 Mg Tablet PO 5 mg Q6H PRN Administration Pain and Fever Sodium Chloride 3 ml 03/19/20 08:00 03/19/20 15:50 0.9 % Sodium Chloride Flush 3 Ml Syringe IVFLUSH 3 ml QSHIFT [facility] Administration Labs CBC & Chem 7: 03/19/20 07:46 03/21/20 05:23 Assessment and Plan (1) Chronic osteomyelitis of foot: Status: Acute Assessment and Plan: 1.AMY: creatinine elevated? related to conrast vs vanco above labs not d/w Id hold off vanco for today trough 17.5 Above labs are not related to date of service: Creatinine on 03/20/20: is 1.6 IVF ns @80ml/hr started will hold off lasix and lisinopril. 2.Diabetic foot ulcer with osteomyelitis: continue vancomycin as ordered for MRSA coverage Continue with Zosyn for gram neg coverage Follow up [facility] General surgery consult and Infectious disease eval pending 3.Diabetes:fs uncontrolled fs with adjusted Insulin regimen as ordered continue with gabapenin home dose 4.Hypertension:continue with amlodipine home dose 5. High cholesterol: continue with atorvastatin home dose
[2020-03-19 17:06] LABS: Glucose, Whole Blood 197 mg/dL (60-115)
[2020-03-19 20:41] LABS: Glucose, Whole Blood 196 mg/dL (60-115)
[2020-03-19] MEDS: Atorvastatin Calcium 80 MG TABLET PO (20:51)
[2020-03-20] VITALS: BP 139/67; PULSE 85; RESP 18; TEMP 37.1; O2SAT 94
--- NOTE | 2020-03-20 | US_ITS ---
EXAMINATION: NONINVASIVE ASSESSMENT OF THE ARTERIES OF BOTH LOWER EXTREMITIES CLINICAL INFORMATION: Nonhealing ulcer. COMPARISON: 07/15/2019. TECHNIQUE: Segmental ankle pulse volume recording, pressure measurement at the ankle and ankle brachial indices were obtained of the lower extremity arterial system bilaterally. In addition, bilateral lower extremity duplex ultrasound was performed with velocity measurements and waveform analysis in the common femoral arteries, profunda femoris arteries, proximal mid and distal superficial femoral arteries, popliteal arteries and tibial vessels. This study was performed at rest only. FINDINGS: a) AT REST: The ankle-brachial indices are: Right 1.2 and left 0.95. Previously these were 1.6 and 1.9 >0.97-1.25 = normal - no significant arterial disease. 0.75-0.96 = mild peripheral arterial disease. 0.5-0.74 = moderate peripheral arterial disease. <0.50 = severe peripheral arterial disease. 2. Segmental pressure at ankle: Normal. 3. PVR waveform at ankle: Normal. 4. Duplex exam. Velocities in cm/sec and phasicity as well as the presence of plaque are reported below. RIGHT LEG: Multiphasic waveforms are present throughout. Plaque is present. Common Femoral: 171 Profunda Femoris: 128 Proximal SFA: 111 Mid SFA: 132 Distal SFA: 120 Popliteal: 86 Tibial: 68 LEFT LEG: Prominent lymph nodes are present in the left groin. Multiphasic flow present throughout with the exception of tibial vessels that demonstrate monophasic flow. There is velocity acceleration in the posterior tibial artery suggesting stenotic lesion. Common Femoral: 173 Profunda Femoris: 112 Proximal SFA: 116 Mid SFA: 152 Distal SFA: 123 Popliteal: 122 Tibial: 207 US/US arterial duplex LE BI IMPRESSION: Compared to the prior study, ABIs appear to have decreased but still within normal limits right but is minimally decreased on the left. Inflow appears to be good. Mild tibial disease on the left. I suspect there is small vessel disease accounting for the patient's ulceration.
--- NOTE | 2020-03-20 | US_ITS ---
EXAMINATION: US RETROPERITONEAL LIMITED (RENAL ONLY) CLINICAL INFORMATION: Acute kidney insufficiency. COMPARISON: Previous abdominal ultrasound July [address] of the abdomen and pelvis April 2017 TECHNIQUE: Grayscale and color imaging of the kidneys FINDINGS: RIGHT KIDNEY: 13.7 x 6.1 x 7.1 cm (SAG x AP x TRV). The kidney is enlarged. There is a renal cortical thickening. Renal cortical echogenicity is normal. No calculi or focal parenchymal lesions. No hydronephrosis. There is trace perinephric fluid. LEFT KIDNEY: 14.7 x 6.4 x 6.7 cm (SAG x AP x TRV). The kidney is enlarged. There is renal cortical thickening. Renal cortical echogenicity is normal. No calculi or focal parenchymal lesions. No hydronephrosis. There is trace perinephric fluid. US/US renal BI IMPRESSION: Enlarged kidneys and bilateral renal cortical thickening. Trace bilateral perinephric fluid.
[2020-03-20] MEDS: oxyCODONE HCl Immed Release 5 MG TABLET PO ×3 (00:13→17:04)
[2020-03-20] MEDS: 0.9 % Sodium Chloride Flush 3 ML SYRINGE IVFLUSH ×2 (00:22→08:25)
[2020-03-20] MEDS: Piperacillin Sodium/Tazobactam 3.375 GM in 0.9 % Sodium Chloride 50 ML IV ×4 (01:55→19:20)
[2020-03-20] MEDS: Heparin Sodium,Porcine 5,000 UNIT/ML VIAL 5000 UNIT SUBCUT ×3 (06:15→20:39)
[2020-03-20 07:19] LABS: Glucose, Whole Blood 193 mg/dL (60-115)
[2020-03-20 08:00] VITALS: BP 137/66; PULSE 86; RESP 18; TEMP 36.8; O2SAT 96
[2020-03-20] MEDS: Clopidogrel Bisulfate 75 MG TABLET PO (08:24)
[2020-03-20] MEDS: lisinopriL 20 MG TABLET PO (08:24)
[2020-03-20] MEDS: amLODIPine Besylate 10 MG TABLET PO (08:24)
[2020-03-20] MEDS: Furosemide 40 MG TABLET PO (08:24)
[2020-03-20] MEDS: Gabapentin 300 MG CAPSULE PO ×3 (08:24→20:36)
--- NOTE | 2020-03-20 09:07 | MHC.CM.PN ---
Femalw 49 DX infected foot wound. Pt lives with Family. She is independent all functional mobility. She had a shower bench @ home. She reports no A.D. No HCP on file. Ed provided, Pt declined. DP home with resumption of [facility]. Referral was sent. Her family will provide transport. CM will follow.
--- NOTE | 2020-03-20 09:35 | P.CDIC_ITS ---
CDI Concurrent Query Service Date: 03/21/20 Documentation Clarification: Please clarify if you are treating a proba ble/suspected/likely or confirmed: Consistency of documentation: Sepsis txt Sepsis rule out Sepsis due to Diabetic foot ulcer with osteomyelitis poa Please specify if known foot osteomyeiltis Provider Response: Other Other Diagnosis: Patient with foot osteomyelitis PLEASE DO NOT DELETE/MODIFY EXISTING CONTENT Additional information is needed in order to code to the highest accuracy and appropriate Severity of Illness (SOI). Please clarify the information noted below in your progress notes and discharge summary. Risk Factors/Clinical Indicators/Treatments Ed: 03/19 - Clinical impression - Sepsis, unspecified organism Zosyn and Vancomycin, WBC 19.4 Temp 97.8 HR 82 RR 18 ID Eval pending. CDS: Edith Harrison CCS, CDIS Contact Number: [phone] Please Review the information above and exercise your independent professional judgment in responding to the query. If you concur, pleas document in the PROGRESS NOTES and DISCHARGE SUMMARY. If you do not agree with the query, please document in the query above. THIS QUERY IS PART OF THE PERMANENT MEDICAL RECORD
[2020-03-20 11:26] LABS: Glucose, Whole Blood 259 mg/dL (60-115)
[2020-03-20 11:48] LABS: Anion Gap 16 (12-20); Blood Urea Nitrogen 15 mg/dL (9-16); Carbon Dioxide 25 mmol/L (22-29); Chloride 98 mmol/L (96-108); Creatinine Clr Calc Pharmacy 48.6; Estimated Glomerular Filt Rate 36; Glucose Random 290 mg/dL (60-115); Potassium 4.3 mmol/l (3.3-5.1); Sodium 135 mmol/L (135-145)
[2020-03-20 11:56] LABS: Vancomycin Trough 17.5 mcg/mL (10.0-20.0)
--- NOTE | 2020-03-20 12:16 | PM.EVENT ---
Event Note Date of Service: 03/20/20 Event Note: Full consult dictated. Cont abx and local care
[2020-03-20] MEDS: 0.9 % Sodium Chloride 500 ML 80 ML IV (12:49)
--- NOTE | 2020-03-20 13:46 | CONS_ITS ---
DATE OF SERVICE: 03/20/2020 REASON FOR CONSULTATION: Nonhealing left foot ulcer. HISTORY OF PRESENT ILLNESS: A 49-year-old female, well known to me, had undergone transmetatarsal amputation. She had healed that and then she subsequently developed an ulcer on the plantar aspect of the foot. It has been getting progressively worse. She has been treated [facility] an outpatient basis by [facility]. In addition, she has had antibiotics. Her leg was progressively getting worse when she felt like she had fevers and chills, subsequently came to the emergency room. On admission, was noted to have a white count of 19.4. She was subsequently given IV antibiotics and was then admitted. She now presents to us for vascular evaluation. PAST MEDICAL HISTORY: Significant for hypertension, hyperlipidemia, and diabetes. PAST SURGICAL HISTORY: Includes transmetatarsal amputation and debridement on 07/05/2019; in addition, . MEDICATIONS: Medication list was reviewed. ALLERGIES: SHE HAS NO KNOWN DRUG ALLERGIES. SOCIAL HISTORY: Nonsmoker. Nondrinker. FAMILY HISTORY: No history of advanced coronary artery disease or peripheral vascular disease. REVIEW OF SYSTEMS: 13-point review was performed. At the current time, denies any headache, dizziness, nausea, vomiting, diarrhea, or shortness of breath. At the time of my examination, she stated that her lower extremity pain had significantly improved from the time of admission. PHYSICAL EXAMINATION: VITAL SIGNS: At the time of my exam, temperature of 98.3, pulse of 86, blood pressure of 137/66. HEAD AND NECK: Demonstrates no bruits. CHEST: Moving air bilaterally. CARDIAC: Positive S1 and S2. ABDOMEN: Soft. EXTREMITIES: Upper extremities have good radial and ulnar pulses. Lower extremities warm with good capillary refill. NEUROLOGICAL: II through XII grossly intact. PSYCH: Mood and affect appear within normal limits. Lower extremity, the transmetatarsal amputation site appears well healed, but she does have about a half-dollar size wound on the plantar aspect. IMAGING: CT of the foot concerning for open ulceration with areas concerning for osteomyelitis. There is concern of an interosseous foci of air as well. IMPRESSION: Nonhealing foot ulcer with osteomyelitis of the left lower extremity. I do believe that she is headed toward the below-knee amputation. I would obtain evaluation from Infectious Disease to determine whether course of antibiotics would be helpful for her or would it be at this point an appropriate consideration for a below-knee amputation. I did notify the patient of this that she is at very high risk and I am concerned that this may not heal. I will follow up with her after arterial testing. Thank you for allowing us to participate in her care. If there are any questions or concerns, please do not hesitate to contact us. MD LUCRECIA Tyson/KEITH / [phone]
[2020-03-20 14:31] LABS: Estimated Average Glucose 309 mg/dL; Hemoglobin A1c % 12.4 %
[2020-03-20 15:01] VITALS: BMI 39.6
[2020-03-20 17:03] LABS: Glucose, Whole Blood 323 mg/dL (60-115)
[2020-03-20] MEDS: Insulin Lispro 100 UNIT/ML 3 ML VIAL SUBCUT ×2 (17:03→22:07)
--- NOTE | 2020-03-20 17:57 | CONS_ITS ---
DATE OF SERVICE: 03/20/2020 REASON FOR CONSULTATION: I was called to see this patient to assist in the management of acute kidney injury. HISTORY OF PRESENT ILLNESS: To summarize, Staci is a pleasant 49-year-old woman with a history of longstanding hypertension, diabetes mellitus, with essentially normal renal function. She comes into the hospital because of an infected left foot wound. She was started on antibiotics. She was initially given vancomycin. At the time of admission, the serum creatinine was 0.68 mg/dL. However, there has been a prompt increase of the creatinine up to 1.55 as of this morning, and hence this consultation. The vancomycin level was 17.5 as of this morning. She has had no urine studies done. All the blood pressure readings were reviewed and she did not have any significant hypotensive episodes, although, the initial blood pressure was significantly elevated at 181/90 mmHg. She had a CAT scan of the foot with IV contrast on March 10, which showed evidence of soft tissue ulceration, septic tenosynovitis, and evidence of osteomyelitis. At present, the vancomycin has been switched to Zosyn. She is nonoliguric. PAST MEDICAL HISTORY: Ongoing medical problems include history of hypertension, diabetes mellitus, obesity, hyperlipidemia. PAST SURGICAL HISTORY: Include left transmetatarsal amputation back in June 2019, section. PERSONAL HISTORY: No history of any smoking or alcohol abuse. REVIEW OF SYSTEMS: Positive for generalized malaise and fever. No headache, nausea, or vomiting. No abdominal pain, diarrhea, constipation. No urinary symptoms. No diarrhea. No constipation. All other systems were reviewed and negative. ALLERGIES: NO KNOWN DRUG ALLERGIES. MEDICATIONS: At time of admission included Lantus, Plavix, amlodipine, furosemide 40 mg daily, gabapentin, lisinopril 20 mg, linezolid. All the current medications were reviewed. PHYSICAL EXAMINATION: GENERAL: Today, Staci appears comfortable, not in any distress. NECK: Supple. No JVD. VITAL SIGNS: Blood pressure 140/70, afebrile. LUNGS: Air entry equal. No rales. HEART: S1 and S2 heard. No gallop or rub. ABDOMEN: Obese, soft, nontender. EXTREMITIES: No edema, no rash, no clubbing. LABORATORY DATA: Hemoglobin 9.9, WBC 17.4, platelets 478. Serum electrolytes were normal. BUN 15, creatinine 1.55, blood sugar 290, calcium . Urine studies are not available. About 6 months ago, she had no significant blood by dipstick. The urine microalbumin/creatinine ratio was 1278 in November. IMPRESSION: 49-year-old woman with a history of hypertension, diabetes mellitus, and osteomyelitis, has sustained acute kidney injury. The differential diagnosis for the acute kidney injury would include contrast nephropathy. She did receive high dose of vancomycin, which could also contribute it to the nephrotoxicity. She has ongoing infectious process, therefore, infection related ATN should be considered as well. The timing of the renal injury does not support the diagnosis of interstitial nephritis at this time. RECOMMENDATIONS: My recommendation will be to obtain a spot urine for sodium, creatinine, and protein. Avoid all nephrotoxic agents. I would hold the lisinopril and the Lasix until renal function stabilizes. The vancomycin has already been discontinued. We will monitor the renal function over the next 24 to 48 hours and further workup will be determined by the outcome of the baseline investigations. We will certainly watch the urine output and if necessary, we will proceed with a renal ultrasonogram to rule out obstructive uropathy, although it seems unlikely at this point. We will follow closely with the team. Jamarcus Alcantara MD BPA/MODL / [phone]
[2020-03-20 18:58] LABS: Creatinine Urine 32.97 mg/dL; Total Protein Urine Random 153 mg/dL (<12)
[2020-03-20 19:39] VITALS: BP 146/69; PULSE 94; RESP 20; TEMP 36.6; O2SAT 95
[2020-03-20] MEDS: Atorvastatin Calcium 80 MG TABLET PO (20:36)
[2020-03-20 21:14] LABS: Glucose, Whole Blood 356 mg/dL (60-115)
--- NOTE | 2020-03-20 21:51 | P.CNID_ITS ---
History of Present Illness Data of Consult Service Date: 03/20/20 Requesting physician: Jesusita Gonzalez Primary Care Provider: Farhana Ellison MD [facility] Reason for consult: left foot infection She presents to hospital with left foot discomfort and oozing from lateral aspect left metatarsal area. 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 Review of Systems Constitutional: Constitutional: Denies headache(s) ENT: Denies dizziness and Denies headache(s) Musculoskeletal: Musculoskeletal: Reports numbness Neurologic: Denies confusion, Denies dizziness, Denies headache(s) and Reports numbness Psychiatric: Psychiatric: Denies confusion PMFSH Past Medical History Medical History (Updated 03/20/20 @ 21:58 by Reanna Graves MD) Amputated toe of left foot High cholesterol Hypertension Insulin dependent diabetes mellitus Neuropathy Osteomyelitis Functional capacity: uses cane/walker Social History Social History Household Members: Spouse Household Members Other:: Housing: Apartment Do you presently have visiting nurse or other home services: Yes ([facility]) Smoking Status: Never smoker Smoked in Last 30 Days: No Use of substances other than those prescribed or required for medical reasons: No Currently Displaying Signs/Symptoms of Drug Intoxication Withdrawal: No Have you been hit, kicked, punched, or otherwise hurt by someone within the past year? If so, by whom?: No Do you feel safe in your current relationship?: Yes Is there a partner from a previous relationship who is making you feel unsafe now?: No Are you made to feel afraid or neglected: No Advance Directives: No Advance Directives Information Provided: Yes Do you have thoughts of harming others: None Do you have a plan to hurt others: No Plan Recently lost weight without trying: No service: No Current occupational status: unemployed Meds Allergies Allergy/AdvReac Type Severity Reaction Status Date / Time No Known Allergies Allergy Verified 03/18/20 18:18 [No Known Allergies*] Home Medications Medication Instructions Recorded Confirmed Type Lantus U-100 Insulin 50 units BEDTIME 03/19/20 03/19/20 History Plavix 40 mg DAILY 03/19/20 03/19/20 History amlodipine 1 tab PO DAILY 03/19/20 03/19/20 History atorvastatin 1 tab PO BEDTIME 03/19/20 03/19/20 History furosemide 1 tab PO DAILY 03/19/20 03/19/20 History gabapentin 1 cap PO TID 03/19/20 03/19/20 History insulin aspart U-100 [Novolog 20 unit SUBCUT TIDAC 03/19/20 03/19/20 History U-100 Insulin aspart] linezolid 1 tab PO BID 03/19/20 03/19/20 History lisinopril 1 tab PO DAILY 03/19/20 03/19/20 History Physical Exam Vital Signs: Vital Signs: Last Vital Signs Temp 97.8 F 03/20/20 19:39 Pulse 94 03/20/20 19:39 Resp 20 03/20/20 19:39 BP 146/69 H 03/20/20 19:39 Pulse Ox 95 03/20/20 19:39 Body Mass Index 39.6 Const: General: cooperative; No confusion Orientation/consciousness: No confusion HENMT: Head: Yes normal to inspection Eyes: General: appearance normal, both eyes and all related structures Resp: Effort & Inspection: normal respiratory effort Cardio: Rate: regular rate Rhythm: regular rhythm GI: Palpation (GI): Soft to palpation and Tenderness to palpation present (GI) Skin: General skin exam: no rashes or lesions noted Neuro: Other: neuropathy feet General: No confusion Extrem: Other: lateral discomfort foot oozing Assessment and Plan (1) Osteomyelitis: Problem details: Osteomyelitis foot VRE infection Acute exacerbation of chronic osteomyelitis likely Foot at risk,seeing Vascular Status: Acute Would continue Linezolid likely 4-6 weeks maximum,can give po Follow Dr Peguero ,may need further debridement Results Labs CBC & Chem 7: 03/19/20 07:46 03/20/20 11:04 Labs: BMP 03/20/20 11:04 Sodium 135 Potassium 4.3 Chloride 98 Carbon Dioxide 25 BUN 15 Creatinine 1.55 H Calcium 8.0 L Microbiology Microbiology Results: Microbiology 03/18/20 21:05 Blood - Venous Blood Culture - Preliminary No growth after 24 hours. 03/18/20 21:02 Blood - Venous Blood Culture - Preliminary No growth after 24 hours.
[2020-03-20] MEDS: Insulin Lispro 100 UNIT/ML 3 ML VIAL 10 UNIT SUBCUT (23:08)
[2020-03-20 23:22] VITALS: BP 135/60; PULSE 95; RESP 18; TEMP 37.9
[2020-03-21 00:31] LABS: Glucose, Whole Blood 335 mg/dL (60-115)
[2020-03-21] MEDS: Piperacillin Sodium/Tazobactam 3.375 GM in 0.9 % Sodium Chloride 50 ML IV ×2 (00:50→08:24)
[2020-03-21] MEDS: 0.9 % Sodium Chloride Flush 3 ML SYRINGE IVFLUSH ×4 (01:06→23:03)
[2020-03-21] MEDS: Heparin Sodium,Porcine 5,000 UNIT/ML VIAL 5000 UNIT SUBCUT ×3 (05:31→21:31)
[2020-03-21 07:08] LABS: Anion Gap 17 (12-20); Blood Urea Nitrogen 20 mg/dL (9-16); Calcium 7.4 mg/dL (8.4-10.2); Carbon Dioxide 22 mmol/L (22-29); Chloride 101 mmol/L (96-108); Creatinine Clr Calc Pharmacy 24.7; Estimated Glomerular Filt Rate 16; Glucose Random 162 mg/dL (60-115); Potassium 4.2 mmol/l (3.3-5.1); Sodium 136 mmol/L (135-145)
[2020-03-21 07:21] LABS: Glucose, Whole Blood 187 mg/dL (60-115)
[2020-03-21 07:47] VITALS: BP 122/58; PULSE 80; RESP 18; TEMP 36.7; O2SAT 95
[2020-03-21] MEDS: Gabapentin 300 MG CAPSULE PO ×3 (08:25→21:32)
[2020-03-21] MEDS: Insulin Lispro 100 UNIT/ML 3 ML VIAL SUBCUT ×4 (08:25→21:32)
[2020-03-21] MEDS: amLODIPine Besylate 10 MG TABLET PO (08:25)
[2020-03-21] MEDS: Furosemide 40 MG TABLET PO (08:26)
[2020-03-21] MEDS: Clopidogrel Bisulfate 75 MG TABLET PO (08:26)
[2020-03-21] MEDS: lisinopriL 20 MG TABLET PO (08:27)
[2020-03-21] MEDS: 0.9 % Sodium Chloride 500 ML 80 ML IV (09:34)
--- NOTE | 2020-03-21 09:37 | HO.VASCPN ---
Subjective Subjective Date of Service: 03/21/20 Patient reports: no new complaints and feels better Interval history: Patient is for follow-up regarding nonhealing left lower extremity ulceration. She has had noninvasive arterial testing. She is now for follow-up. No interval changes overnight. Physical Exam Vital Signs: Vital Signs: Last Vital Signs Temp 98.0 F 03/21/20 07:47 Pulse 80 03/21/20 07:47 Resp 18 03/21/20 07:47 BP 122/58 L 03/21/20 07:47 Pulse Ox 95 03/21/20 07:47 Body Mass Index 39.6 Const: General: cooperative, healthy appearing and no acute distress Orientation/consciousness: oriented to person, oriented to place and oriented to time HENMT: Head: Yes normal to inspection Neck: Carotids: no bruits Chest: Chest palpation & inspection: normal inspection of the chest Resp: Effort & Inspection: normal respiratory effort and able to speak in complete sentences Auscultation: clear to auscultation bilaterally Cardio: Rate: regular rate Heart sounds: S1 normal heart sound present and S2 normal heart sound present GI: Inspection: Yes normal to inspection Skin: General skin exam: no rashes or lesions noted Wounds: wounds noted (Nonhealing left plantar surface ulcer half dollar size) Neuro: General: oriented to person, oriented to place, oriented to time and CN's II-XI intact bilaterally Extrem: General: Yes normal to inspection, Yes full ROM and Yes no clubbing, cyanosis or edema Psych: Appearance: grossly normal and well kempt Speech and movement: Normal speech and movement present Affect: normal affect Progress Note: A&P Assessment and plan (1) Diabetic foot ulcer with osteomyelitis: Status: Acute Assessment and Plan: Nonhealing left foot ulcer. Appreciated Infectious Disease note. In addition arterial testing is within normal limits. I did order a repeat hemoglobin A1c which was 12.4. Clearly she is an uncontrolled diabetic. Had a magaly discussion with her that this has been going on for a while and may be a good candidate for below the knee amputation as I suspect this will not heal. She politely refused and would like to continue with conservative measures. Would recommend continued antibiotics per Infectious Disease recommendations. She can follow up with me as an outpatient in approximately 1 months time. Thank you for allowing us to assist in her care. Should there be any questions or concerns please do not hesitate to contact me Fall Risk Details Current Medications: Current Medications Generic Name Dose Route Start Last Admin Trade Name Justyna PRN Reason Stop Dose Admin Amlodipine Besylate 10 mg 03/19/20 09:00 03/21/20 08:25 Amlodipine Besylate 10 Mg Tablet PO 10 mg DAILY ANGÉLICA Administration Protocol Atorvastatin Calcium 80 mg 03/19/20 21:00 03/20/20 20:36 Atorvastatin Calcium 80 Mg Tablet PO 80 mg BEDTIME ANGÉLICA Administration Clopidogrel Bisulfate 75 mg 03/20/20 09:00 03/21/20 08:26 Clopidogrel Bisulfate 75 Mg Tablet PO 75 mg DAILY ANGÉLICA Administration Gabapentin 300 mg 03/19/20 09:00 03/21/20 08:25 Gabapentin 300 Mg Capsule PO 300 mg TID ANGÉLICA Administration Heparin Sodium (Porcine) 5,000 unit 03/19/20 05:00 03/21/20 05:31 Heparin Sodium,Porcine 5,000 Unit/Ml Vial SUBCUT 5,000 unit Q8H ANGÉLICA Administration Sodium Chloride 500 mls @ 80 mls/hr 03/21/20 09:15 03/21/20 09:34 Ns IV 03/21/20 15:29 80 mls/hr .[id number] ANGÉLICA Administration Insulin Human Lispro 0 unit 03/20/20 16:30 03/21/20 08:25 Insulin Lispro 100 Unit/Ml 3 Ml Vial SUBCUT 2 unit QIDACHS ANGÉLICA Administration Protocol Linezolid 600 mg 03/21/20 09:00 Linezolid 600 Mg Tablet PO Q12H ANGÉLICA Oxycodone HCl 5 mg 03/19/20 15:33 03/20/20 17:04 Oxycodone Hcl Immed Release 5 Mg Tablet PO 5 mg Q6H PRN Administration Pain and Fever Sodium Chloride 3 ml 03/19/20 08:00 03/21/20 08:25 0.9 % Sodium Chloride Flush 3 Ml Syringe IVFLUSH 3 ml QSHIFT ANGÉLICA Administration Time Spent With Patient Time: Total time spent is greater than 50% in coordination of care (as documented) at patient's floor/unit and/or counseling patient: Time with patient: 15 - 24 minutes
--- NOTE | 2020-03-21 10:16 | P.PNNP_ITS ---
Subjective Subjective Date of Service: 03/21/20 Principal diagnosis: AMY Interval history: Seen and examined. Low UOP per PT Not on IVF overnight. SAMEER-I stoped yesterday Got lasix this am..now stoped No rash/fever U/S noted..no hydro, kidney good size to large Physical Exam Vital Signs: Vital Signs: Last Vital Signs Temp 98.0 F 03/21/20 07:47 Pulse 80 03/21/20 07:47 Resp 18 03/21/20 07:47 BP 122/58 L 03/21/20 07:47 Pulse Ox 95 03/21/20 07:47 Body Mass Index 39.6 Const: General: cooperative, healthy appearing, comfortable and no acute distress; No confusion Nutritional Appearance: well nourished Orientation/consciousness: oriented to person, oriented to place, oriented to time and No confusion HENMT: Head: Yes normal to inspection Eyes: General: appearance normal, both eyes and all related structures Sclerae: sclerae normal EOM: EOMs intact bilaterally Neck: Neck: Yes normal visual inspection Carotids: no bruits Chest: Chest palpation & inspection: normal inspection of the chest Resp: Effort & Inspection: normal respiratory effort, able to speak in complete sentences, no cough and no respiratory distress Auscultation: clear to auscultation bilaterally Cardio: Jugular venous distension: no JVD Rate: regular rate Rhythm: regular rhythm Heart sounds: S1 normal heart sound present and S2 normal heart sound present GI: Inspection: Yes normal to inspection Palpation (GI): Soft to palpation, Tenderness to palpation present (GI), no guarding and not rigid Percussion: Yes normal to percussion Auscultation: normal bowel sounds Skin: General skin exam: no rashes or lesions noted and dry skin Lesions: other (left foot infected diabetic ulcer ) Rashes: no rashes Wounds: wounds noted (Nonhealing left plantar surface ulcer half dollar size) Neuro: Other: neuropathy feet General: oriented to person, oriented to place, oriented to time, CN's II-XI intact bilaterally and No confusion Cognition (Neuro): normal cognition Extrem: Other: lateral discomfort foot oozing General: Yes normal to inspection, Yes full ROM, Yes no clubbing, cyanosis or edema and Yes other (s/p MTA of LLE. ) Psych: Appearance: grossly normal and well kempt Speech and movement: Normal speech and movement present Affect: normal affect Assessment & Plan Assessment and plan (1) Diabetic foot ulcer with osteomyelitis: Status: Acute Assessment and Plan: Nonhealing left foot ulcer. Appreciated Infectious Disease note. In addition arterial testing is within normal limits. I did order a repeat hemoglobin A1c which was 12.4. Clearly she is an uncontrolled diabetic. Had a magaly discussion with her that this has been going on for a while and may be a good candidate for below the knee amputation as I suspect this will not heal. She politely refused and would like to continue with conservative measures. Would recommend continued antibiotics per Infectious Disease recommendations. She can follow up with me as an outpatient in approximately 1 months time. Thank you for allowing us to assist in her care. Should there be any questions or concerns please do not hesitate to contact me Time Spent With Patient Time: 1. AMY: wifde DDx with ATN from combination of IV dye ( 03/18) and vanco and SAMEER-I ..the latter interfeferoing with reanl autoreg of circulatoin; BUT other poss such as: AIN, AGN d/t infcetion a definte possibility pre-renal: depsite FENa > 1% n( she is on lasix)...need to check FEurea Note UPcr close 3.5 gms but she had signif Ualb in past moist liely d/t unde rlying DN 2. Osteo: ABx as noted 3. Anemia: need to r/o myeloma as cause of anmeia, Uprot and AMY 4. DM 5. H/O Ualb in past 6. H/O AMY in past as well REC: needs routine UA; hold plavix so if she needs kidney BX early next week we can do it; additional sero as ordered; avoid NToxins; cont to hold lasix and SAMEER-I; agree with IVF will follow patrick with team
[2020-03-21 11:08] LABS: Glucose, Whole Blood 265 mg/dL (60-115)
[2020-03-21] MEDS: Linezolid 600 MG TABLET PO ×2 (12:45→21:22)
[2020-03-21 16:00] VITALS: BP 140/72; PULSE 80; RESP 18; TEMP 36.3; O2SAT 98
[2020-03-21 16:17] LABS: Glucose, Whole Blood 253 mg/dL (60-115)
[2020-03-21 16:39] LABS: Glucose Urine UA 100 MG/DL (NEG); Leukocyte Esterase Urine 2+ (NEG); Nitrite Urine NEG (NEG); PH 5.5 (5.0-8.0); Urine Blood 3+ (NEG); Urine Ketones NEG (NEG); Urine Protein 2+ MG/DL (NEG-TRACE)
[2020-03-21 16:52] LABS: Appearance Urine HAZY; Color Urine RED
[2020-03-21 17:11] LABS: Creatinine Urine 37.99 mg/dL
[2020-03-21 17:18] LABS: Amorphous Sediment Urine 1+ /LPF; Bacteria Urine TRACE /LPF; RBC Urine TNTC /HPF (0); Squamous Epithelial Cell Urine TRACE /LPF
--- NOTE | 2020-03-21 17:43 | HO.PM.IMPN ---
Subjective Subjective Date of Service: 03/22/20 Interval History: amy Review of Systems Patient denies any chest pain or shortness of breath or abdominal pain or fever or chills or urinary complaints. She says she is producing urine so far. Physical Exam Vital Signs: Vital Signs: Last Vital Signs Temp 97.3 F 03/21/20 16:00 Pulse 80 03/21/20 16:00 Resp 18 03/21/20 16:00 BP 140/72 H 03/21/20 16:00 Pulse Ox 98 03/21/20 16:00 Body Mass Index 39.6 Physical exam: HEENT: Eyes anicteric,no discharge Cvs: rrr, [id number] , no murmur res: clear to auscultation ,no rhonchii or wheezing abd: no rebound or guarding ,nt, bs present. ext pulses present , no cyanosis neuro: axo3 , nonfocal. Objective Data Current Medications Generic Name Dose Route Start Last Admin Trade Name Freq PRN Reason Stop Dose Admin Amlodipine Besylate 10 mg 03/19/20 09:00 03/21/20 08:25 Amlodipine Besylate 10 Mg Tablet PO 10 mg DAILY ANGÉLICA Administration Protocol Atorvastatin Calcium 80 mg 03/19/20 21:00 03/20/20 20:36 Atorvastatin Calcium 80 Mg Tablet PO 80 mg BEDTIME ANGÉLICA Administration Clopidogrel Bisulfate 75 mg 03/20/20 09:00 03/21/20 08:26 Clopidogrel Bisulfate 75 Mg Tablet PO 75 mg DAILY ANGÉLICA Administration Gabapentin 300 mg 03/19/20 09:00 03/21/20 16:16 Gabapentin 300 Mg Capsule PO 300 mg TID ANGÉLICA Administration Heparin Sodium (Porcine) 5,000 unit 03/19/20 05:00 03/21/20 11:49 Heparin Sodium,Porcine 5,000 Unit/Ml Vial SUBCUT 5,000 unit Q8H ANGÉLICA Administration Sodium Chloride 1,000 mls @ 80 mls/hr 03/21/20 16:45 Ns IVCONT .[id number] [facility] Insulin Human Lispro 0 unit 03/20/20 16:30 03/21/20 16:35 Insulin Lispro 100 Unit/Ml 3 Ml Vial SUBCUT 6 unit QIDACHS ANGÉLICA Administration Protocol Linezolid 600 mg 03/21/20 09:00 03/21/20 12:45 Linezolid 600 Mg Tablet PO 600 mg Q12H ANGÉLICA Administration Oxycodone HCl 5 mg 03/19/20 15:33 03/20/20 17:04 Oxycodone Hcl Immed Release 5 Mg Tablet PO 5 mg Q6H PRN Administration Pain and Fever Sodium Chloride 3 ml 03/19/20 08:00 03/21/20 16:16 0.9 % Sodium Chloride Flush 3 Ml Syringe IVFLUSH 3 ml QSHIFT ANGÉLICA Administration Labs CBC & Chem 7: 03/22/20 06:23 03/22/20 06:23 Microbiology Microbiology Results: Microbiology 03/18/20 21:05 Blood - Venous Blood Culture - Preliminary No growth after 48 hours. 03/18/20 21:02 Blood - Venous Blood Culture - Preliminary No growth after 48 hours. Assessment and Plan (1) Hypertension: Status: Acute (2) AMY (acute kidney injury): Status: Acute Assessment and Plan: 1. Osteomyelitis foot: VRE infection as per culture Switched to linezolid 2. AMY: labs above by error : cr on 03/21/20: was 3.06 Probably related to contrast, Vanco,? Lisinopril/Lasix might also IV fluid normal saline 80 ml/hr 3.Diabetes:fs uncontrolled: 160-250's fs with adjusted Insulin regimen as ordered continue with gabapenin home dose 4.Hypertension:continue with amlodipine . 5. High cholesterol: continue with atorvastatin .
[2020-03-21 20:10] VITALS: BP 137/63; PULSE 89; RESP 18; TEMP 36.3; O2SAT 91
[2020-03-21 21:08] LABS: Glucose, Whole Blood 331 mg/dL (60-115)
[2020-03-21] MEDS: Atorvastatin Calcium 80 MG TABLET PO (21:33)
[2020-03-21 22:07] VITALS: BP 167/74; PULSE 93; RESP 18; TEMP 37.1; O2SAT 93
[2020-03-21] MEDS: oxyCODONE HCl Immed Release 5 MG TABLET PO (23:01)
[2020-03-21 23:09] VITALS: BP 149/65; PULSE 88; RESP 20; TEMP 36.5; O2SAT 95
[2020-03-22 03:22] VITALS: BP 146/68; PULSE 92; RESP 20; TEMP 37.6; O2SAT 92
--- NOTE | 2020-03-22 05:47 | MHC.PIE ---
Addendum entered by Korin Villalpando RN 03/22/20 06:17: i; new order tylenol 650 mg po now e; will cont to moitor Original Note: p; temp99.8. note; no prn Tylenol for fever i; dr monsalve notified e; will cont to monitor
[2020-03-22] MEDS: 0.9 % Sodium Chloride 1,000 ML 80 ML IVCONT ×2 (05:55→18:34)
[2020-03-22] MEDS: Heparin Sodium,Porcine 5,000 UNIT/ML VIAL 5000 UNIT SUBCUT ×3 (05:58→21:24)
[2020-03-22] MEDS: Acetaminophen 325 MG TABLET 650 MG PO (06:41)
[2020-03-22 06:52] LABS: Hematocrit 31.1 % (37-47); Hemoglobin 9.9 g/dl (12.0-16.0); Mean Corpuscular HGB Conc 31.8 g/dl (31.0-35.0); Mean Corpuscular Hemoglobin 25.9 pg (27.0-33.0); Mean Corpuscular Volume 81.4 fL (80-98); Mean Platelet Volume 9.4 fL (9.4-12.3); Platelet Count 435 X10*3/uL (160-400); Red Blood Count 3.82 X10*6/uL (4.20-5.50); Red Cell Distribution Width 13.1 % (11.0-16.0); White Blood Count 18.2 X10*3/uL (4.8-10.8)
[2020-03-22 07:40] VITALS: BP 156/71; PULSE 87; RESP 19; TEMP 36.9; O2SAT 97
[2020-03-22 07:45] LABS: Anion Gap 16 (12-20); Blood Urea Nitrogen 28 mg/dL (9-16); Calcium 7.5 mg/dL (8.4-10.2); Carbon Dioxide 22 mmol/L (22-29); Chloride 100 mmol/L (96-108); Creatinine Clr Calc Pharmacy 16.7; Estimated Glomerular Filt Rate 10; Glucose Random 327 mg/dL (60-115); Potassium 4.2 mmol/l (3.3-5.1); Sodium 134 mmol/L (135-145)
[2020-03-22 07:50] LABS: HBS Num1 1.61 mIU/mL (0-7.99); HBc Num1 0.12 S/CO (0.00-0.79); HBsAGNum1 0.21 S/CO (0.00-0.99); Hepatitis B Core Antibody Nonreactive (Nonreactive); Hepatitis B Surface Antigen Negative (Negative); ~HepC Num1 0.25 S/CO (0.00-0.79); ~Hepatitis B Surface Antibody NONREACTIVE (Nonreactive); ~Hepatitis C Antibody Nonreactive (Nonreactive)
[2020-03-22] MEDS: Insulin Lispro 100 UNIT/ML 3 ML VIAL SUBCUT ×4 (08:02→21:25)
[2020-03-22 08:03] VITALS: BP 156/71; PULSE 87
[2020-03-22] MEDS: Gabapentin 300 MG CAPSULE PO ×3 (08:03→21:25)
[2020-03-22] MEDS: Insulin Glargine,Hum.rec.anlog 100 UNIT/ML 10 ML VIAL SUBCUT (08:03)
[2020-03-22] MEDS: amLODIPine Besylate 10 MG TABLET PO (08:03)
[2020-03-22] MEDS: Linezolid 600 MG TABLET PO ×2 (08:03→21:25)
[2020-03-22 08:19] LABS: Glucose, Whole Blood 305 mg/dL (60-115)
[2020-03-22] MEDS: Insulin Glargine,Hum.rec.anlog 100 UNIT/ML 10 ML VIAL 15 UNIT SUBCUT (09:32)
--- NOTE | 2020-03-22 10:54 | PC.NURSE ---
CONTACTED DR. MASTERSON ABOUT THE CREAT 4.5 NO NEW ORDERS GIVEN.
--- NOTE | 2020-03-22 11:42 | PC.NURSE ---
Pt morning POC 305, Dr. Gonzalez ordered 5 units Lantus, given. Dr. gonzalez changed daily lantus order to 15 units. MD contact to verify lantus order, Dr. Gonzalez stated to give 10 units instead of the 15 units since previously given 5 units of lantus. Pyxis did not allow for override of 10 units of lantus, 15 units lantus for 0900 was selected but only 10 units was removed and administered.
[2020-03-22] MEDS: oxyCODONE HCl Immed Release 5 MG TABLET PO (11:59)
[2020-03-22 12:07] LABS: Glucose, Whole Blood 319 mg/dL (60-115)
--- NOTE | 2020-03-22 12:23 | MHC.CM.PN ---
PER PHYSICAN ROUNDS, SYMPTOMS NOT IMPROVING. NO PLAN FOR DISCHARGE TODAY.
--- NOTE | 2020-03-22 15:01 | HO.PM.IMPN ---
Subjective Subjective Date of Service: 03/22/20 Interval History: Patient has osteomyelitis, worsening of AMY Review of Systems Patient denies any shortness of breath or abdominal pain or fever or chills or weakness or numbness. Physical Exam Vital Signs: Vital Signs: Last Vital Signs Temp 98.5 F 03/22/20 07:40 Pulse 87 03/22/20 08:03 Resp 19 03/22/20 07:40 BP 156/71 H 03/22/20 08:03 Pulse Ox 97 03/22/20 07:40 Body Mass Index 39.6 Physical exam: heent: eyes anicteric, no discharge. Cvs: rrr, [id number] , no murmur res: clear to auscultation ,no rhonchii or wheezing abd: no rebound or guarding ,nt, bs present. ext pulses present , no cyanosis , foot left foot , no gross discharge. neuro: axo3 , nonfocal. Objective Data Current Medications Generic Name Dose Route Start Last Admin Trade Name Freq PRN Reason Stop Dose Admin Amlodipine Besylate 10 mg 03/19/20 09:00 03/22/20 08:03 Amlodipine Besylate 10 Mg Tablet PO 10 mg DAILY ANGÉLICA Administration Protocol Atorvastatin Calcium 80 mg 03/19/20 21:00 03/21/20 21:33 Atorvastatin Calcium 80 Mg Tablet PO 80 mg BEDTIME ANGÉLICA Administration Clopidogrel Bisulfate 75 mg 03/20/20 09:00 03/21/20 08:26 Clopidogrel Bisulfate 75 Mg Tablet PO 75 mg DAILY ANGÉLICA Administration Gabapentin 300 mg 03/19/20 09:00 03/22/20 14:15 Gabapentin 300 Mg Capsule PO 300 mg TID ANGÉLICA Administration Heparin Sodium (Porcine) 5,000 unit 03/19/20 05:00 03/22/20 11:59 Heparin Sodium,Porcine 5,000 Unit/Ml Vial SUBCUT 5,000 unit Q8H ANGÉLICA Administration Sodium Chloride 1,000 mls @ 80 mls/hr 03/21/20 16:45 03/22/20 05:55 Ns IVCONT 80 mls/hr .[id number] ANGÉLICA Administration Insulin Glargine 15 unit 03/22/20 09:00 03/22/20 09:32 Insulin Glargine,Hum.Rec.Anlog 100 Unit/Ml 10 Ml Vial SUBCUT 10 unit DAILY ANGÉLICA Administration Insulin Human Lispro 0 unit 03/20/20 16:30 03/22/20 11:58 Insulin Lispro 100 Unit/Ml 3 Ml Vial SUBCUT 10 unit QIDACHS ANGÉLICA Administration Protocol Linezolid 600 mg 03/21/20 09:00 03/22/20 08:03 Linezolid 600 Mg Tablet PO 600 mg Q12H ANGÉLICA Administration Oxycodone HCl 5 mg 03/19/20 15:33 03/22/20 11:59 Oxycodone Hcl Immed Release 5 Mg Tablet PO 5 mg Q6H PRN Administration Pain and Fever Sodium Chloride 3 ml 03/19/20 08:00 03/22/20 07:37 0.9 % Sodium Chloride Flush 3 Ml Syringe IVFLUSH Not Given QSHIFT [facility] Labs CBC & Chem 7: 03/22/20 06:23 03/22/20 06:23 Microbiology Microbiology Results: Microbiology 03/18/20 21:05 Blood - Venous Blood Culture - Preliminary No growth after 48 hours. 03/18/20 21:02 Blood - Venous Blood Culture - Preliminary No growth after 48 hours. Assessment and Plan (1) Osteomyelitis: Problem details: Osteomyelitis foot VRE infection Acute exacerbation of chronic osteomyelitis likely Foot at risk,seeing Vascular Status: Acute (2) AMY (acute kidney injury): Status: Acute Assessment and Plan: 1. Osteomyelitis foot: VRE infection as per culture Switched to linezolid Patient's takes Plavix for possible peripheral vascular disease-seen by Dr. Peguero: Duplex lower extremity reviewed by vascular. vascular recommended for further amputation which patient currently is not decided to. In addition discussed with the Dr. Peguero: Recommended to hold off Plavix this case patient need renal biopsy 2. AMY: labs above by error : cr on 03/21/20: was 4.5. Probably related to contrast, Vanco,? Lisinopril/Lasix might also IV fluid normal saline 80 ml/hr 3.Diabetes:fs uncontrolled: 160-250's fs with adjusted Insulin regimen as ordered continue with gabapenin home dose 4.Hypertension:continue with amlodipine . 5. High cholesterol: continue with atorvastatin .
[2020-03-22 15:48] VITALS: BP 127/70; PULSE 83; RESP 18; TEMP 36.8; O2SAT 97
[2020-03-22 16:23] LABS: Glucose, Whole Blood 331 mg/dL (60-115)
--- NOTE | 2020-03-22 18:36 | PM.PNNEP ---
Subjective Subjective Date of Service: 03/22/20 Principal diagnosis: AMY Interval history: seen and examined. Making more urine Physical Exam Vital Signs: Vital Signs: Last Vital Signs Temp 98.2 F 03/22/20 15:48 Pulse 83 03/22/20 15:48 Resp 18 03/22/20 15:48 BP 127/70 03/22/20 15:48 Pulse Ox 97 03/22/20 15:48 Body Mass Index 39.6 Const: General: cooperative, healthy appearing, comfortable and no acute distress; No confusion Nutritional Appearance: well nourished Orientation/consciousness: oriented to person, oriented to place, oriented to time and No confusion HENMT: Head: Yes normal to inspection Eyes: General: appearance normal, both eyes and all related structures Sclerae: sclerae normal EOM: EOMs intact bilaterally Neck: Neck: Yes normal visual inspection Carotids: no bruits Chest: Chest palpation & inspection: normal inspection of the chest Resp: Effort & Inspection: normal respiratory effort, able to speak in complete sentences, no cough and no respiratory distress Auscultation: clear to auscultation bilaterally Cardio: Jugular venous distension: no JVD Rate: regular rate Rhythm: regular rhythm Heart sounds: S1 normal heart sound present and S2 normal heart sound present GI: Inspection: Yes normal to inspection Palpation (GI): Soft to palpation, Tenderness to palpation present (GI), no guarding and not rigid Percussion: Yes normal to percussion Auscultation: normal bowel sounds Skin: General skin exam: no rashes or lesions noted and dry skin Lesions: other (left foot infected diabetic ulcer ) Rashes: no rashes Wounds: wounds noted (Nonhealing left plantar surface ulcer half dollar size) Neuro: Other: neuropathy feet General: oriented to person, oriented to place, oriented to time, CN's II-XI intact bilaterally and No confusion Cognition (Neuro): normal cognition Extrem: Other: lateral discomfort foot oozing General: Yes normal to inspection, Yes full ROM, Yes no clubbing, cyanosis or edema and Yes other (s/p MTA of LLE. ) Psych: Appearance: grossly normal and well kempt Speech and movement: Normal speech and movement present Affect: normal affect Assessment & Plan Assessment and plan (1) Diabetic foot ulcer with osteomyelitis: Status: Acute Assessment and Plan: AMY: incr sCr is concerning but still may reflect ATN with delayed recovery...incr UOPis a good sign; sero w/u in progress with labs pending wide DDx with ATN from combination of IV dye ( 03/18) and vanco and SAMEER-I ..the latter interfeferoing with reanl autoreg of circulatoin; BUT other poss such as: AIN, AGN d/t infcetion a definte possibility pre-renal: depsite FENa > 1% n( she is on lasix)...need to check FEurea Note UPcr close 3.5 gms but she had signif Ualb in past moist liely d/t underlying DN 2. Osteo: ABx as noted 3. Anemia: need to r/o myeloma as cause of anmeia, Uprot and AMY 4. DM 5. H/O Ualb in past 6. H/O AMY in past as well REC: cont Ivf; contot hold plavix so if she needs kidney BX early next week we can do it; sero as ordered arre pendng; avoid NToxins; cont to hold lasix and SAMEER-I will follow patrick with team Time Spent With Patient Time: Total time spent is greater than 50% in coordination of care (as documented) at patient's floor/unit and/or counseling patient:
[2020-03-22 20:19] LABS: Glucose, Whole Blood 280 mg/dL (60-115)
[2020-03-22 20:37] VITALS: BP 147/81; PULSE 91; RESP 20; TEMP 36.9; O2SAT 92
[2020-03-22] MEDS: Atorvastatin Calcium 80 MG TABLET PO (21:25)
[2020-03-23] VITALS (7 sets, daily range): BP systolic 112–154; BP diastolic 55–78; PULSE 80–98; RESP 16–20; TEMP 36.8–38.4; O2SAT 91–95
[2020-03-23] MEDS: Acetaminophen 325 MG TABLET 650 MG PO (03:57)
[2020-03-23] MEDS: Heparin Sodium,Porcine 5,000 UNIT/ML VIAL 5000 UNIT SUBCUT ×3 (05:02→21:06)
[2020-03-23] MEDS: 0.9 % Sodium Chloride 1,000 ML 80 ML IVCONT (06:27)
[2020-03-23 07:32] LABS: Anion Gap 16 (12-20); Blood Urea Nitrogen 30 mg/dL (9-16); Calcium 7.4 mg/dL (8.4-10.2); Carbon Dioxide 20 mmol/L (22-29); Chloride 102 mmol/L (96-108); Creatinine Clr Calc Pharmacy 15.4; Estimated Glomerular Filt Rate 9; Glucose Random 238 mg/dL (60-115); Potassium 4.3 mmol/l (3.3-5.1); Sodium 134 mmol/L (135-145)
[2020-03-23 08:14] LABS: Glucose, Whole Blood 240 mg/dL (60-115)
[2020-03-23] MEDS: Insulin Lispro 100 UNIT/ML 3 ML VIAL SUBCUT ×6 (08:29→21:20)
[2020-03-23] MEDS: Gabapentin 300 MG CAPSULE PO ×3 (08:30→21:07)
[2020-03-23] MEDS: Linezolid 600 MG TABLET PO ×2 (08:30→21:07)
[2020-03-23] MEDS: Insulin Glargine,Hum.rec.anlog 100 UNIT/ML 10 ML VIAL 15 UNIT SUBCUT (08:30)
[2020-03-23] MEDS: amLODIPine Besylate 10 MG TABLET PO (08:31)
--- NOTE | 2020-03-23 10:38 | PM.PNNEP ---
Subjective Subjective Date of Service: 03/23/20 Principal diagnosis: AMY Interval history: seen and examined. Making more urine Physical Exam Vital Signs: Vital Signs: Last Vital Signs Temp 98.3 F 03/23/20 07:48 Pulse 85 03/23/20 08:31 Resp 19 03/23/20 07:48 BP 134/63 03/23/20 08:31 Pulse Ox 95 03/23/20 07:48 Body Mass Index 39.6 Const: General: cooperative, healthy appearing, comfortable and no acute distress; No confusion Nutritional Appearance: well nourished Orientation/consciousness: oriented to person, oriented to place, oriented to time and No confusion HENMT: Head: Yes normal to inspection Eyes: General: appearance normal, both eyes and all related structures Sclerae: sclerae normal EOM: EOMs intact bilaterally Neck: Neck: Yes normal visual inspection Carotids: no bruits Chest: Chest palpation & inspection: normal inspection of the chest Resp: Effort & Inspection: normal respiratory effort, able to speak in complete sentences, no cough and no respiratory distress Auscultation: clear to auscultation bilaterally Cardio: Jugular venous distension: no JVD Rate: regular rate Rhythm: regular rhythm Heart sounds: S1 normal heart sound present and S2 normal heart sound present GI: Inspection: Yes normal to inspection Palpation (GI): Soft to palpation, Tenderness to palpation present (GI), no guarding and not rigid Percussion: Yes normal to percussion Auscultation: normal bowel sounds Skin: General skin exam: no rashes or lesions noted and dry skin Lesions: other (left foot infected diabetic ulcer ) Rashes: no rashes Wounds: wounds noted (Nonhealing left plantar surface ulcer half dollar size) Neuro: Other: neuropathy feet General: oriented to person, oriented to place, oriented to time, CN's II-XI intact bilaterally and No confusion Cognition (Neuro): normal cognition Extrem: Other: lateral discomfort foot oozing General: Yes normal to inspection, Yes full ROM, Yes no clubbing, cyanosis or edema and Yes other (s/p MTA of LLE. ) Psych: Appearance: grossly normal and well kempt Speech and movement: Normal speech and movement present Affect: normal affect Assessment & Plan Assessment and plan (1) Diabetic foot ulcer with osteomyelitis: Status: Acute Assessment and Plan: AMY: incr sCr BUT rate of incr less nad good UOP may reflkect eqarly recovery ATN sero w/u in progress with labs pending wide DDx with ATN from combination of IV dye ( 03/18) and vanco and SAMEER-I ..the latter interfeferoing with reanl autoreg of circulatoin; BUT other poss such as: AIN, AGN d/t infcetion a definte possibility pre-renal: depsite FENa > 1% n( she is on lasix)...need to check FEurea Note UPcr close 3.5 gms but she had signif Ualb in past moist liely d/t underlying DN 2. Osteo: ABx as noted 3. Anemia: need to r/o myeloma as cause of anmeia, Uprot and AMY 4. DM 5. H/O Ualb in past 6. H/O AMY in past as well REC: cont Ivf; cont to hold plavix so if she needs kidney BX early next week we can do it; sero as ordered arre pendng; avoid NToxins; cont to hold lasix and SAMEER-I will follow patrick with team Time Spent With Patient Time: Total time spent is greater than 50% in coordination of care (as documented) at patient's floor/unit and/or counseling patient:
[2020-03-23 12:44] LABS: Glucose, Whole Blood 294 mg/dL (60-115)
--- NOTE | 2020-03-23 13:13 | P.EN_ITS ---
Event Note Date of Service: 03/23/20 Event Note: I had a [id number] visit with the patient per request of [facility]. This was my 3rd conversation regarding her vascular status and nonhealing ulcer. I had the braiding machine tender Collette present at the time of my conversation. I reiterated that her blood flow was within normal limits. Her ulcer has been nonhealing for an extended period of time. It is my formal recommendation that a below-knee amputation be performed. She demonstrated a clear understanding of that. She had several questions regarding her antibiotic regimen and kidney status which would be better answered by Infectious Disease and Nephrology. I did spend an extensive time discussing risk factor modification in particular diabetes control as her last hemoglobin A1c was 12.4 that I ordered. She is well aware that she is at an extremely high risk of amputation. It appears that compliance is an issue with her. I will follow up with her on an as-needed basis. Please note a total of 25 minutes was spent with the patient. Please recall when amputation is required
[2020-03-23 13:27] LABS: Anti Nuclear Antibody Screen NEGATIVE (NEGATIVE); Myeloperoxidase Antibody <1.0 AI; Proteinase 3 PR3 Antibodies <1.0 AI
--- NOTE | 2020-03-23 13:27 | HO.PM.IMPN ---
Subjective Subjective Date of Service: 03/23/20 Interval History: amy Review of Systems Denies any chest pain or shortness of breath or abdominal pain or fever or chills or urinary complaints. Physical Exam Vital Signs: Vital Signs: Last Vital Signs Temp 98.3 F 03/23/20 07:48 Pulse 85 03/23/20 08:31 Resp 19 03/23/20 07:48 BP 134/63 03/23/20 08:31 Pulse Ox 95 03/23/20 07:48 Body Mass Index 39.6 Physical exam: Cvs: rrr, [id number] , no murmur res: clear to auscultation ,no rhonchii or wheezing abd: no rebound or guarding ,nt, bs present. ext: No edema or cyanosis up left foot area -no erythema or discharge neuro: axo3 , nonfocal. Objective Data Current Medications Generic Name Dose Route Start Last Admin Trade Name Freq PRN Reason Stop Dose Admin Amlodipine Besylate 10 mg 03/19/20 09:00 03/23/20 08:31 Amlodipine Besylate 10 Mg Tablet PO 10 mg DAILY ANGÉLICA Administration Protocol Atorvastatin Calcium 80 mg 03/19/20 21:00 03/22/20 21:25 Atorvastatin Calcium 80 Mg Tablet PO 80 mg BEDTIME ANGÉLICA Administration Clopidogrel Bisulfate 75 mg 03/20/20 09:00 03/21/20 08:26 Clopidogrel Bisulfate 75 Mg Tablet PO 75 mg DAILY ANGÉLICA Administration Gabapentin 300 mg 03/19/20 09:00 03/23/20 08:30 Gabapentin 300 Mg Capsule PO 300 mg TID ANGÉLICA Administration Heparin Sodium (Porcine) 5,000 unit 03/19/20 05:00 03/23/20 12:16 Heparin Sodium,Porcine 5,000 Unit/Ml Vial SUBCUT 5,000 unit Q8H ANGÉLICA Administration Sodium Chloride 1,000 mls @ 80 mls/hr 03/21/20 16:45 03/23/20 11:34 Ns IVCONT 80 mls/hr .[id number] ANGÉLICA Infusion Insulin Glargine 15 unit 03/22/20 09:00 03/23/20 08:30 Insulin Glargine,Hum.Rec.Anlog 100 Unit/Ml 10 Ml Vial SUBCUT 15 unit DAILY ANGÉLICA Administration Insulin Human Lispro 0 unit 03/20/20 16:30 03/23/20 12:16 Insulin Lispro 100 Unit/Ml 3 Ml Vial SUBCUT 4 unit QIDACHS ANGÉLICA Administration Protocol Linezolid 600 mg 03/21/20 09:00 03/23/20 08:30 Linezolid 600 Mg Tablet PO 600 mg Q12H ANGÉLICA Administration Oxycodone HCl 5 mg 03/19/20 15:33 03/22/20 11:59 Oxycodone Hcl Immed Release 5 Mg Tablet PO 5 mg Q6H PRN Administration Pain and Fever Sodium Chloride 3 ml 03/19/20 08:00 03/23/20 07:14 0.9 % Sodium Chloride Flush 3 Ml Syringe IVFLUSH Not Given QSHIFT [facility] Labs CBC & Chem 7: 03/22/20 06:23 03/23/20 06:26 Microbiology Microbiology Results: Microbiology 03/18/20 21:05 Blood - Venous Blood Culture - Preliminary No growth after 48 hours. 03/18/20 21:02 Blood - Venous Blood Culture - Preliminary No growth after 48 hours. Assessment and Plan (1) AMY (acute kidney injury): Status: Acute (2) Osteomyelitis: Status: Acute Assessment and Plan: 1. Osteomyelitis foot/ nonhealing ulcer : VRE infection as per culture Switched to linezolid Patient's takes Plavix for possible peripheral vascular disease-seen by Dr. Peguero: Duplex lower extremity reviewed by vascular. vascular recommended for further amputation which patient currently is not decided to. In addition discussed with the Dr. peguero and nephro : we hold off Plavix this case patient need renal biopsy 2. AMY: Etiology unclear but probably thought to be related to contrast, Vanco even though level were therapeutic,? Lisinopril might contributed also, other differentials shins are AIN, AGN d/t inefction as per Nephro. IV fluid normal saline 80 ml/hr Monitor renal function closely. 3.Diabetes:fs uncontrolled: 160-250's fs with adjusted Insulin regimen as ordered continue with gabapenin home dose 4.Hypertension:continue with amlodipine . 5. High cholesterol: continue with atorvastatin .
--- NOTE | 2020-03-23 15:41 | MHC.CM.PN ---
Met with pt. Feeling okay. Per MD rounds, no D/C today. Will need nephrology consult. D/C plan is home without services. Will follow for d/c needs
[2020-03-23 16:20] LABS: Glucose, Whole Blood 279 mg/dL (60-115)
[2020-03-23 19:23] LABS: Urea, Random Urine 129 mg/dL
[2020-03-23 20:40] LABS: Glucose, Whole Blood 275 mg/dL (60-115)
[2020-03-23] MEDS: Atorvastatin Calcium 80 MG TABLET PO (21:07)
[2020-03-23 21:18] LABS: Kappa Light Chain, Free Serum 116.1 mg/L (3.3-19.4); Kappa/Lambda Lt Ch Free Ratio 1.36 (0.26-1.65); Lambda Light Chain, Free Serum 85.3 mg/L (5.7-26.3)
[2020-03-23] MEDS: Docusate Sodium 100 MG CAPSULE PO (22:07)
[2020-03-24] MEDS: ondansetron HCL 4 MG/2 ML VIAL IVPUSH (04:28)
[2020-03-24] MEDS: 0.9 % Sodium Chloride 1,000 ML 80 ML IVCONT (05:52)
[2020-03-24] MEDS: Heparin Sodium,Porcine 5,000 UNIT/ML VIAL 5000 UNIT SUBCUT ×3 (05:52→21:25)
[2020-03-24 06:12] LABS: IgA 542 mg/dL (47-310); IgG 1223 mg/dL (600-1640); IgM 77 mg/dL (50-300)
[2020-03-24 06:49] LABS: Anion Gap 18 (12-20); Blood Urea Nitrogen 31 mg/dL (9-16); Calcium 7.5 mg/dL (8.4-10.2); Carbon Dioxide 18 mmol/L (22-29); Chloride 105 mmol/L (96-108); Glucose Random 229 mg/dL (60-115); Potassium 4.1 mmol/l (3.3-5.1); Sodium 137 mmol/L (135-145)
[2020-03-24 06:51] LABS: Creatinine Clr Calc Pharmacy 16.2; Estimated Glomerular Filt Rate 10
[2020-03-24 07:49] LABS: Glucose, Whole Blood 236 mg/dL (60-115)
[2020-03-24 08:00] VITALS: BP 136/67; PULSE 85; RESP 18; TEMP 36.6; O2SAT 97
[2020-03-24] MEDS: Linezolid 600 MG TABLET PO ×2 (08:20→21:25)
[2020-03-24] MEDS: amLODIPine Besylate 10 MG TABLET PO (08:20)
[2020-03-24] MEDS: Insulin Glargine,Hum.rec.anlog 100 UNIT/ML 10 ML VIAL 20 UNIT SUBCUT (08:21)
[2020-03-24] MEDS: 0.9 % Sodium Chloride Flush 3 ML SYRINGE IVFLUSH ×3 (08:21→21:27)
[2020-03-24] MEDS: Gabapentin 300 MG CAPSULE PO ×3 (08:22→21:24)
[2020-03-24] MEDS: Insulin Lispro 100 UNIT/ML 3 ML VIAL SUBCUT ×8 (08:22→21:26)
--- NOTE | 2020-03-24 10:46 | PM.PNNEP ---
Subjective Subjective Date of Service: 03/24/20 Principal diagnosis: AMY Interval history: Seen nad examined. Events noted Physical Exam Vital Signs: Vital Signs: Last Vital Signs Temp 97.9 F 03/24/20 08:00 Pulse 85 03/24/20 08:00 Resp 18 03/24/20 08:00 BP 136/67 03/24/20 08:00 Pulse Ox 97 03/24/20 08:00 Body Mass Index 39.6 Const: General: cooperative, healthy appearing, comfortable and no acute distress; No confusion Nutritional Appearance: well nourished Orientation/consciousness: oriented to person, oriented to place, oriented to time and No confusion HENMT: Head: Yes normal to inspection Eyes: General: appearance normal, both eyes and all related structures Sclerae: sclerae normal EOM: EOMs intact bilaterally Neck: Neck: Yes normal visual inspection Carotids: no bruits Chest: Chest palpation & inspection: normal inspection of the chest Resp: Effort & Inspection: normal respiratory effort, able to speak in complete sentences, no cough and no respiratory distress Auscultation: clear to auscultation bilaterally Cardio: Jugular venous distension: no JVD Rate: regular rate Rhythm: regular rhythm Heart sounds: S1 normal heart sound present and S2 normal heart sound present GI: Inspection: Yes normal to inspection Palpation (GI): Soft to palpation, Tenderness to palpation present (GI), no guarding and not rigid Percussion: Yes normal to percussion Auscultation: normal bowel sounds Skin: General skin exam: no rashes or lesions noted and dry skin Lesions: other (left foot infected diabetic ulcer ) Rashes: no rashes Wounds: wounds noted (Nonhealing left plantar surface ulcer half dollar size) Neuro: Other: neuropathy feet General: oriented to person, oriented to place, oriented to time, CN's II-XI intact bilaterally and No confusion Cognition (Neuro): normal cognition Extrem: Other: lateral discomfort foot oozing General: Yes normal to inspection, Yes full ROM, Yes no clubbing, cyanosis or edema and Yes other (s/p MTA of LLE. ) Psych: Appearance: grossly normal and well kempt Speech and movement: Normal speech and movement present Affect: normal affect Assessment & Plan Assessment and plan (1) Diabetic foot ulcer with osteomyelitis: Status: Acute Assessment and Plan: AMY: incr sCr has finally palteau/slt decreased and mostl likely reflkect early recovery ATN from Vanco NToxicity Note UPcr close 3.5 gms but she had signif Ualb in past moist liely d/t underlying DN 2. Osteo: ABx as noted 3. Anemia: need to r/o myeloma as cause of anmeia, Uprot and AMY 4. DM 5. H/O Ualb in past 6. H/O AMY in past as well REC: if SCr in am cont decr then ok to d/c with close f/u as outpt; would cont to hold plavix/asprin as still a chance she could need kidney Bx next week as outpt; if d/c tomorrow she needs repeat labs early next week and f/u with meor Dr Alcantara next week ( I will arrange) Time Spent With Patient Time: Total time spent is greater than 50% in coordination of care (as documented) at patient's floor/unit and/or counseling patient:
[2020-03-24 12:27] LABS: Glucose, Whole Blood 270 mg/dL (60-115)
[2020-03-24 16:00] VITALS: BP 149/75; PULSE 91; RESP 20; TEMP 36.8; O2SAT 91
--- NOTE | 2020-03-24 16:12 | HO.PM.IMPN ---
Subjective Subjective Date of Service: 03/24/20 Interval History: Patient seen and examined at bedside patient was reporting foot pain Review of Systems Denies any chest pain or shortness of breath or abdominal pain or fever or chills or urinary complaints. Constitutional Constitutional: Reports malaise and Reports other (fever) Musculoskeletal Musculoskeletal: Reports other (Left leg pain) Physical Exam Vital Signs: Vital Signs: Last Vital Signs Temp 97.9 F 03/24/20 08:00 Pulse 85 03/24/20 08:00 Resp 18 03/24/20 08:00 BP 136/67 03/24/20 08:00 Pulse Ox 97 03/24/20 08:00 Body Mass Index 39.6 Const: General: cooperative and comfortable Orientation/consciousness: oriented to person, oriented to place and oriented to time HENMT: Head: Yes normal to inspection Eyes: General: appearance normal, both eyes and all related structures Neck: Neck: Yes normal visual inspection Chest: Chest palpation & inspection: normal inspection of the chest Resp: Effort & Inspection: normal respiratory effort Cardio: Jugular venous distension: no JVD Rate: regular rate Rhythm: regular rhythm Heart sounds: S1 normal heart sound present and S2 normal heart sound present GI: Inspection: Yes normal to inspection Skin: Lesions: other (left foot infected diabetic ulcer ) Neuro: General: oriented to person, oriented to place and oriented to time Cognition (Neuro): normal cognition Extrem: General: Yes other (s/p MTA of LLE. ) Psych: Appearance: grossly normal Objective Data Current Medications Generic Name Dose Route Start Last Admin Trade Name Freq PRN Reason Stop Dose Admin Amlodipine Besylate 10 mg 03/19/20 09:00 03/24/20 08:20 Amlodipine Besylate 10 Mg Tablet PO 10 mg DAILY ANGÉLICA Administration Protocol Atorvastatin Calcium 80 mg 03/19/20 21:00 03/23/20 21:07 Atorvastatin Calcium 80 Mg Tablet PO 80 mg BEDTIME ANGÉLICA Administration Clopidogrel Bisulfate 75 mg 03/20/20 09:00 03/21/20 08:26 Clopidogrel Bisulfate 75 Mg Tablet PO 75 mg DAILY ANGÉLICA Administration Gabapentin 300 mg 03/19/20 09:00 03/24/20 08:22 Gabapentin 300 Mg Capsule PO 300 mg TID ANGÉLICA Administration Heparin Sodium (Porcine) 5,000 unit 03/19/20 05:00 03/24/20 12:48 Heparin Sodium,Porcine 5,000 Unit/Ml Vial SUBCUT 5,000 unit Q8H ANGÉLICA Administration Sodium Chloride 1,000 mls @ 80 mls/hr 03/21/20 16:45 03/24/20 05:52 Ns IVCONT 80 mls/hr .[id number] ANGÉLICA Administration Insulin Glargine 20 unit 03/24/20 09:00 03/24/20 08:21 Insulin Glargine,Hum.Rec.Anlog 100 Unit/Ml 10 Ml Vial SUBCUT 20 unit DAILY ANGÉLICA Administration Insulin Human Lispro 0 unit 03/20/20 16:30 03/24/20 12:47 Insulin Lispro 100 Unit/Ml 3 Ml Vial SUBCUT 6 unit QIDACHS ANGÉLICA Administration Protocol Insulin Human Lispro 5 unit 03/23/20 16:30 03/24/20 12:47 Insulin Lispro 100 Unit/Ml 3 Ml Vial SUBCUT 5 unit QIDACHS ANGÉLICA Administration Linezolid 600 mg 03/21/20 09:00 03/24/20 08:20 Linezolid 600 Mg Tablet PO 600 mg Q12H ANGÉLICA Administration Ondansetron HCl 4 mg 03/23/20 17:45 03/24/20 04:28 Ondansetron Hcl 4 Mg/2 Ml Vial IVPUSH 4 mg Q8H PRN Administration Nausea Sodium Chloride 3 ml 03/19/20 08:00 03/24/20 08:21 0.9 % Sodium Chloride Flush 3 Ml Syringe IVFLUSH 3 ml QSHIFT ANGÉLICA Administration Labs CBC & Chem 7: 03/22/20 06:23 03/24/20 05:57 Microbiology Microbiology Results: Microbiology 03/18/20 21:05 Blood - Venous Blood Culture - Final No growth after 5 days. 03/18/20 21:02 Blood - Venous Blood Culture - Final No growth after 5 days. Assessment and Plan (1) PILO (acute kidney injury): Status: Acute (2) Osteomyelitis: Status: Acute Assessment and Plan: Osteomyelitis foot/ nonhealingdiabetic foot ulcer with cellulitis culture from foot growing VRE blood culture negative Vancomycin stopped for Pilo and VRE antibiotic switched to liver linezolid continue linezolid Patient's takes Plavix for peripheral vascular disease-seen by Dr. Peguero: Duplex lower extremity reviewed by vascular. vascular recommended amputation which patient currently is refusing hold off Plavix for renal biopsy PILO Etiology unclear but probably thought to be related to contrast, Vanco even though level were therapeutic,? Lisinopril might contributed also, and possible ATN. creatinine trended up from 0.8 to 4.8 now started trending down 4.6 today continue IV fluid normal saline 80 ml/hr Monitor renal function closely. Avoid nephrotoxic Nephrology following recommended monitoring Diabetes uncontrolled insulin adjusted monitored blood glucose Hypertension continue with amlodipine . High cholesterol: continue with atorvastatin DVt ppx heparin s/c
[2020-03-24 16:23] LABS: Glucose, Whole Blood 255 mg/dL (60-115)
[2020-03-24 20:43] LABS: Glucose, Whole Blood 193 mg/dL (60-115)
[2020-03-24] MEDS: Atorvastatin Calcium 80 MG TABLET PO (21:25)
[2020-03-24 23:37] VITALS: BP 176/68; PULSE 91; RESP 18; TEMP 37; O2SAT 95
[2020-03-25] MEDS: Heparin Sodium,Porcine 5,000 UNIT/ML VIAL 5000 UNIT SUBCUT ×3 (05:06→20:44)
[2020-03-25 07:08] LABS: Basophils Absolute Auto 0.2 X10*3/uL (0.0-0.2); Basophils Percent Auto 0.8 % (0-2); Eosinophils Absolute Auto 0.8 X10*3/uL (0.0-0.4); Eosinophils Percent Auto 3.4 % (0-4); Hematocrit 34.2 % (37-47); Hemoglobin 10.7 g/dl (12.0-16.0); Imm Gran Abs Auto 0.21 X10*3/uL (0.00-0.03); Imm Gran Pct Auto 0.9 % (0.0-0.4); Lymphocytes Absolute Auto 3.2 X10*3/uL (1.2-4.9); Lymphocytes Percent Auto 14.3 % (20-40); MANUAL DIFF FLAG SCAN; Mean Corpuscular HGB Conc 31.3 g/dl (31.0-35.0); Mean Corpuscular Hemoglobin 25.6 pg (27.0-33.0); Mean Corpuscular Volume 81.8 fL (80-98); Mean Platelet Volume 9.7 fL (9.4-12.3); NRBC Pct Auto 0.1 /100WBC (0.0-0.2); Neutrophils Absolute Auto 16.1 X10*3/uL (2.0-8.3); Neutrophils Percent Auto 71.6 % (45-73); Platelet Count 494 X10*3/uL (160-400); Red Blood Count 4.18 X10*6/uL (4.20-5.50); SCAN SMEAR FLAG 1; White Blood Count 22.4 X10*3/uL (4.8-10.8)
[2020-03-25 07:57] LABS: SLIDE REVIEW VERIFIED
[2020-03-25 08:00] VITALS: BP 151/81; PULSE 81; RESP 20; TEMP 37; O2SAT 92
[2020-03-25 08:01] LABS: Anion Gap 16 (12-20); Blood Urea Nitrogen 30 mg/dL (9-16); Calcium 7.7 mg/dL (8.4-10.2); Carbon Dioxide 20 mmol/L (22-29); Chloride 106 mmol/L (96-108); Creatinine Clr Calc Pharmacy 17.8; Estimated Glomerular Filt Rate 11; Glucose Random 177 mg/dL (60-115); Potassium 4.2 mmol/l (3.3-5.1); Sodium 138 mmol/L (135-145)
[2020-03-25 08:15] LABS: Glucose, Whole Blood 169 mg/dL (60-115)
[2020-03-25] MEDS: Insulin Glargine,Hum.rec.anlog 100 UNIT/ML 10 ML VIAL 20 UNIT SUBCUT (09:04)
[2020-03-25 09:05] VITALS: BP 151/81; PULSE 81
[2020-03-25] MEDS: Linezolid 600 MG TABLET PO ×2 (09:05→20:45)
[2020-03-25] MEDS: Gabapentin 300 MG CAPSULE PO ×3 (09:05→20:44)
[2020-03-25] MEDS: amLODIPine Besylate 10 MG TABLET PO (09:05)
[2020-03-25] MEDS: Insulin Lispro 100 UNIT/ML 3 ML VIAL SUBCUT ×8 (09:05→20:53)
[2020-03-25] MEDS: 0.9 % Sodium Chloride Flush 3 ML SYRINGE IVFLUSH ×3 (09:06→23:25)
[2020-03-25 11:45] LABS: Glucose, Whole Blood 201 mg/dL (60-115)
--- NOTE | 2020-03-25 12:05 | P.PNIM_ITS ---
Subjective Subjective Date of Service: 03/25/20 Interval History: Patient seen and examined at bedside patient was reporting foot pain Review of Systems Denies any chest pain or shortness of breath or abdominal pain or fever or chills or urinary complaints. Constitutional Constitutional: Reports malaise and Reports other (fever) Musculoskeletal Musculoskeletal: Reports other (Left leg pain) Physical Exam Vital Signs: Vital Signs: Last Vital Signs Temp 98.6 F 03/25/20 08:00 Pulse 81 03/25/20 09:05 Resp 20 03/25/20 08:00 BP 151/81 H 03/25/20 09:05 Pulse Ox 92 03/25/20 08:00 Body Mass Index 39.6 Const: General: cooperative and comfortable Orientation/consciousness: oriented to person, oriented to place and oriented to time HENMT: Head: Yes normal to inspection Eyes: General: appearance normal, both eyes and all related structures Neck: Neck: Yes normal visual inspection Chest: Chest palpation & inspection: normal inspection of the chest Resp: Effort & Inspection: normal respiratory effort Cardio: Jugular venous distension: no JVD Rate: regular rate Rhythm: regular rhythm Heart sounds: S1 normal heart sound present and S2 normal heart sound present GI: Inspection: Yes normal to inspection Skin: Lesions: other (left foot infected diabetic ulcer with surrounding erythema and swelling) Neuro: General: oriented to person, oriented to place and oriented to time Cognition (Neuro): normal cognition Extrem: General: Yes other (s/p MTA of LLE. ) Psych: Appearance: grossly normal Objective Data Current Medications Generic Name Dose Route Start Last Admin Trade Name Freq PRN Reason Stop Dose Admin Amlodipine Besylate 10 mg 03/19/20 09:00 03/25/20 09:05 Amlodipine Besylate 10 Mg Tablet PO 10 mg DAILY ANGÉLICA Administration Protocol Atorvastatin Calcium 80 mg 03/19/20 21:00 03/24/20 21:25 Atorvastatin Calcium 80 Mg Tablet PO 80 mg BEDTIME ANGÉLICA Administration Clopidogrel Bisulfate 75 mg 03/20/20 09:00 03/21/20 08:26 Clopidogrel Bisulfate 75 Mg Tablet PO 75 mg DAILY ANGÉLICA Administration Gabapentin 300 mg 03/19/20 09:00 03/25/20 09:05 Gabapentin 300 Mg Capsule PO 300 mg TID ANGÉLICA Administration Heparin Sodium (Porcine) 5,000 unit 03/19/20 05:00 03/25/20 05:06 Heparin Sodium,Porcine 5,000 Unit/Ml Vial SUBCUT 5,000 unit Q8H [facility] Administration Insulin Glargine 20 unit 03/24/20 09:00 03/25/20 09:04 Insulin Glargine,Hum.Rec.Anlog 100 Unit/Ml 10 Ml Vial SUBCUT 20 unit DAILY ANGÉLICA Administration Insulin Human Lispro 0 unit 03/20/20 16:30 03/25/20 09:05 Insulin Lispro 100 Unit/Ml 3 Ml Vial SUBCUT 2 unit QIDACHS [facility] Administration Protocol Insulin Human Lispro 5 unit 03/23/20 16:30 03/25/20 09:05 Insulin Lispro 100 Unit/Ml 3 Ml Vial SUBCUT 5 unit QIDAS [facility] Administration Linezolid 600 mg 03/21/20 09:00 03/25/20 09:05 Linezolid 600 Mg Tablet PO 600 mg Q12H [facility] Administration Ondansetron HCl 4 mg 03/23/20 17:45 03/24/20 04:28 Ondansetron Hcl 4 Mg/2 Ml Vial IVPUSH 4 mg Q8H PRN Administration Nausea Sodium Chloride 3 ml 03/19/20 08:00 03/25/20 09:06 0.9 % Sodium Chloride Flush 3 Ml Syringe IVFLUSH 3 ml QSHIFT [facility] Administration Labs CBC & Chem 7: 03/25/20 06:16 03/25/20 06:15 Microbiology Microbiology Results: Microbiology 03/18/20 21:05 Blood - Venous Blood Culture - Final No growth after 5 days. 03/18/20 21:02 Blood - Venous Blood Culture - Final No growth after 5 days. Assessment and Plan (1) PILO (acute kidney injury): Status: Acute (2) Osteomyelitis: Status: Acute Assessment and Plan: Osteomyelitis foot/ nonhealingdiabetic foot ulcer with cellulitis culture from foot growing VRE worsening leukocytosis, blood culture negative Vancomycin stopped for Pilo and VRE antibiotic switched to linezolid currently on po linezolid , vascular surgery recommended amputation which patient currently is refusing persistent foot erythema and worsening leukocytosis, will get ID follow-up PILO Etiology unclear but probably thought to be related to contrast, Vanco even though level were therapeutic,? Lisinopril might contributed also, and possible ATN. creatinine trended up from 0.8 to 4.8 now started trending down 4.16 today continue IV fluid normal saline 80 ml/hr Monitor renal function closely. Avoid nephrotoxic Nephrology following recommended monitoring Plavix on hold for possible renal biopsy, but as creatinine trending down patient will less likely need biopsy Diabetes uncontrolled blood glucose improving continue Lantus and sliding scale insulin monitored blood glucose Hypertension continue with amlodipine . High cholesterol: continue with atorvastatin DVt ppx heparin s/c
[2020-03-25 12:07] VITALS: BP 166/80; PULSE 85; RESP 19; TEMP 37.2; O2SAT 95
[2020-03-25 15:57] VITALS: BP 160/81; PULSE 87; RESP 18; TEMP 36.7; O2SAT 91
[2020-03-25 16:54] LABS: Glucose, Whole Blood 200 mg/dL (60-115)
[2020-03-25] MEDS: Piperacillin Sodium/Tazobactam 2.25 GM in 0.9 % Sodium Chloride 50 ML IV ×2 (17:06→23:24)
[2020-03-25] MEDS: Atorvastatin Calcium 80 MG TABLET PO (20:45)
[2020-03-25 20:48] LABS: Glucose, Whole Blood 262 mg/dL (60-115)
[2020-03-25 23:47] VITALS: BP 158/76; PULSE 90; RESP 18; TEMP 36.4; O2SAT 94
[2020-03-26] MEDS: Heparin Sodium,Porcine 5,000 UNIT/ML VIAL 5000 UNIT SUBCUT ×3 (06:01→22:09)
[2020-03-26] MEDS: Piperacillin Sodium/Tazobactam 2.25 GM in 0.9 % Sodium Chloride 50 ML IV (06:02)
[2020-03-26 07:09] LABS: Anion Gap 17 (12-20); Blood Urea Nitrogen 30 mg/dL (9-16); Calcium 8.1 mg/dL (8.4-10.2); Carbon Dioxide 21 mmol/L (22-29); Chloride 106 mmol/L (96-108); Creatinine Clr Calc Pharmacy 20.3; Estimated Glomerular Filt Rate 13; Glucose Random 207 mg/dL (60-115); Potassium 4.1 mmol/l (3.3-5.1); Sodium 140 mmol/L (135-145)
[2020-03-26 07:20] LABS: Basophils Absolute Auto 0.2 X10*3/uL (0.0-0.2); Basophils Percent Auto 0.8 % (0-2); Eosinophils Absolute Auto 0.7 X10*3/uL (0.0-0.4); Eosinophils Percent Auto 3.4 % (0-4); Hematocrit 32.6 % (37-47); Hemoglobin 10.2 g/dl (12.0-16.0); Imm Gran Abs Auto 0.14 X10*3/uL (0.00-0.03); Imm Gran Pct Auto 0.7 % (0.0-0.4); Lymphocytes Absolute Auto 3.2 X10*3/uL (1.2-4.9); Lymphocytes Percent Auto 14.8 % (20-40); MANUAL DIFF FLAG SCAN; Mean Corpuscular HGB Conc 31.3 g/dl (31.0-35.0); Mean Corpuscular Hemoglobin 25.8 pg (27.0-33.0); Mean Corpuscular Volume 82.3 fL (80-98); Mean Platelet Volume 9.6 fL (9.4-12.3); Monocytes Percent Auto 9.1 % (2-11); NRBC Pct Auto 0.1 /100WBC (0.0-0.2); Neutrophils Absolute Auto 15.2 X10*3/uL (2.0-8.3); Neutrophils Percent Auto 71.2 % (45-73); Platelet Count 525 X10*3/uL (160-400); Red Blood Count 3.96 X10*6/uL (4.20-5.50); SCAN SMEAR FLAG 1; White Blood Count 21.4 X10*3/uL (4.8-10.8)
[2020-03-26 07:41] VITALS: BP 167/79; PULSE 84; RESP 19; TEMP 36.8; O2SAT 95
[2020-03-26 07:42] LABS: SLIDE REVIEW VERIFIED
[2020-03-26] MEDS: Insulin Lispro 100 UNIT/ML 3 ML VIAL SUBCUT ×6 (08:23→22:10)
[2020-03-26 08:24] VITALS: BP 167/79; PULSE 84
[2020-03-26] MEDS: polyethylene glycoL 3350 17 GM POWD.PACK PO (08:24)
[2020-03-26] MEDS: amLODIPine Besylate 10 MG TABLET PO (08:24)
[2020-03-26] MEDS: Insulin Glargine,Hum.rec.anlog 100 UNIT/ML 10 ML VIAL 20 UNIT SUBCUT (08:24)
[2020-03-26] MEDS: Gabapentin 300 MG CAPSULE PO ×3 (08:25→22:09)
[2020-03-26] MEDS: 0.9 % Sodium Chloride Flush 3 ML SYRINGE IVFLUSH (08:25)
[2020-03-26] MEDS: Linezolid 600 MG TABLET PO ×2 (08:25→22:10)
--- NOTE | 2020-03-26 09:54 | MHC.CM.PN ---
VIKAS PACKA UPDATED IN [employer]MIRIPTS. ANTIBIOTIC CHANGE NOTED ON PROGRESS NOTE.
[2020-03-26 12:11] VITALS: BP 166/68; PULSE 75; RESP 17; TEMP 37; O2SAT 94
--- NOTE | 2020-03-26 12:29 | PC.NURSE ---
Lost Iv access. 3 Nurses attempted to gain IV access and failed. DR. Black aware. Pt switched to PO antibiotics. Pt order for PICC line placement ordered by Dr. Black.
[2020-03-26] MEDS: Amoxicillin/Potassium Clav 500 MG TABLET PO ×2 (12:58→23:41)
--- NOTE | 2020-03-26 13:06 | HO.PM.IMPN ---
Subjective Subjective Date of Service: 03/26/20 Interval History: L TMTA stump pain improved, no drainage, no fever/chills, no N/V/abd pain/diarrhea still refuses amputation recommended by Dr Peguero lost PIV access and multiple attempts at replacing PIV were unsusccessful Physical Exam Vital Signs: Vital Signs: Last Vital Signs Temp 98.6 F 03/26/20 12:11 Pulse 75 03/26/20 12:11 Resp 17 03/26/20 12:11 BP 166/68 H 03/26/20 12:11 Pulse Ox 94 03/26/20 12:11 Body Mass Index 39.6 gen: NAD neck: supple lungs; CTAB CV: RRR no m/r/g abd: soft/NT/ND ext: L TMTA stump with dry plantar ulcer, no purulence, minimal surrounding erythema, extensive induration, no lymphangitic streaking psych: appropriate affect Objective Data Current Medications Generic Name Dose Route Start Last Admin Trade Name Freq PRN Reason Stop Dose Admin Amlodipine Besylate 10 mg 03/19/20 09:00 03/26/20 08:24 Amlodipine Besylate 10 Mg Tablet PO 10 mg DAILY ANGÉLICA Administration Protocol Amoxicillin/Clavulanate Potassium 500 mg 03/26/20 12:00 03/26/20 12:58 Amoxicillin/Potassium Clav 500 Mg Tablet PO 03/27/20 00:01 500 mg Q12H ANGÉLICA Administration Atorvastatin Calcium 80 mg 03/19/20 21:00 03/25/20 20:45 Atorvastatin Calcium 80 Mg Tablet PO 80 mg BEDTIME ANGÉLICA Administration Clopidogrel Bisulfate 75 mg 03/20/20 09:00 03/21/20 08:26 Clopidogrel Bisulfate 75 Mg Tablet PO 75 mg DAILY ANGÉLICA Administration Gabapentin 300 mg 03/19/20 09:00 03/26/20 08:25 Gabapentin 300 Mg Capsule PO 300 mg TID ANGÉLICA Administration Heparin Sodium (Porcine) 5,000 unit 03/19/20 05:00 03/26/20 13:00 Heparin Sodium,Porcine 5,000 Unit/Ml Vial SUBCUT 5,000 unit Q8H ANGÉLICA Administration Piperacillin Sod/Tazobactam 50 mls @ 100 mls/hr 03/25/20 18:00 03/26/20 12:29 Sod 2.25 gm/ Sodium Chloride IV Not Given Q6H [facility] Insulin Glargine 20 unit 03/24/20 09:00 03/26/20 08:24 Insulin Glargine,Hum.Rec.Anlog 100 Unit/Ml 10 Ml Vial SUBCUT 20 unit DAILY ANGÉLICA Administration Insulin Human Lispro 0 unit 03/20/20 16:30 03/26/20 11:29 Insulin Lispro 100 Unit/Ml 3 Ml Vial SUBCUT 2 unit QIDACHS ANGÉLICA Administration Protocol Insulin Human Lispro 5 unit 03/23/20 16:30 03/26/20 11:29 Insulin Lispro 100 Unit/Ml 3 Ml Vial SUBCUT 5 unit QIDACHS ANGÉLICA Administration Linezolid 600 mg 03/21/20 09:00 03/26/20 08:25 Linezolid 600 Mg Tablet PO 600 mg Q12H ANGÉLICA Administration Ondansetron HCl 4 mg 03/23/20 17:45 03/24/20 04:28 Ondansetron Hcl 4 Mg/2 Ml Vial IVPUSH 4 mg Q8H PRN Administration Nausea Polyethylene Glycol 17 gm 03/25/20 23:35 03/26/20 08:24 Polyethylene Glycol 3350 17 Gm Powd.Pack PO 17 gm DAILY ANGÉLICA Administration Sodium Chloride 3 ml 03/19/20 08:00 03/26/20 08:25 0.9 % Sodium Chloride Flush 3 Ml Syringe IVFLUSH 3 ml QSHIFT ANGÉLICA Administration Labs CBC & Chem 7: 03/26/20 06:26 03/26/20 06:26 Microbiology Microbiology Results: Microbiology 03/18/20 21:05 Blood - Venous Blood Culture - Final No growth after 5 days. 03/18/20 21:02 Blood - Venous Blood Culture - Final No growth after 5 days. Assessment and Plan (1) AMY (acute kidney injury): Status: Acute (2) Osteomyelitis: Status: Acute Assessment and Plan: hospital d#8 49yo F with uncontrolled DM2 admitted for nonhealing TMTA stump with osteomyelitis # osteomyelitis/DM foot infection/TMTA ulcer - wound culture growing VRE; BCx negative - linezolid d#6; due to worsening leukocytosis, pip/jory added and on d#2; will cover with amox/clav PO until PICC can be placed- plan PICC for tomorrow # AMY/proteinuria - thought secondary to vancomycin-induced ATN superimposed on DM nephropathy - Nephrology following - SCr improving - holding SAMEER-I lisinopril - holding clopidogrel for possible outpt renal biopsy # uncontrolled DM2, A1c 12.4 - increase Lantus + Humalog # DM neuropathy - continue gabapentin # HTN - amlodipine, holding SAMEER-I # HLD - atorvastatin # VTE ppx - UFH
--- NOTE | 2020-03-26 13:20 | PM.PNNEP ---
Subjective Subjective Date of Service: 03/26/20 Principal diagnosis: AMY Interval history: Pt feeling ok; denies new issues of rash or dyspnea. ROS: no rash no JOHNSON no fever no abd pain or diarrhea Physical Exam Vital Signs: Vital Signs: Last Vital Signs Temp 98.6 F 03/26/20 12:11 Pulse 75 03/26/20 12:11 Resp 17 03/26/20 12:11 BP 166/68 H 03/26/20 12:11 Pulse Ox 94 03/26/20 12:11 Body Mass Index 39.6 Const: General: cooperative and other Nutritional Appearance: average body habitus Orientation/consciousness: oriented to person, oriented to place and oriented to time HENMT: Ears: hearing grossly normal bilaterally and external ears normal Eyes: Pupils: Equal, round and reactive pupils present Neck: Carotids: normal carotid upstroke Chest: Chest palpation & inspection: normal inspection of the chest Resp: Auscultation: clear to auscultation bilaterally Cardio: Rhythm: regular rhythm Heart sounds: S1 normal heart sound present and S2 normal heart sound present Neuro: General: oriented to person, oriented to place and oriented to time Cranial nerves: Yes Equal, round and reactive pupils present Extrem: Right upper extremity: edema Assessment & Plan Assessment and plan (1) AMY (acute kidney injury): Problem details: AMY in the setting if diabetic foot infection/osteo Status: Acute (2) Sepsis: Status: Acute (3) Diabetic foot ulcer with osteomyelitis: Status: Acute Assessment and Plan: Pt has hematuria, high grade proteinuria and elevated IgA level. I ordered complement levels. 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 If does not fully recovery, would consider renal biopsy; creat down today somewhat Recommend: C3, C4 level ANCA If creat does not improve substantially, consider renal biopsy (4) Chronic osteomyelitis of foot: Status: Acute Time Spent With Patient Time: Total time spent is greater than 50% in coordination of care (as documented) at patient's floor/unit and/or counseling patient: Time with patient: less than 15 minutes
[2020-03-26 16:00] VITALS: BP 148/73; PULSE 82; RESP 18; TEMP 36.9; O2SAT 92
[2020-03-26 16:58] LABS: Glucose, Whole Blood 214 mg/dL (60-115)
[2020-03-26] MEDS: Insulin Lispro 100 UNIT/ML 3 ML VIAL 7 UNIT SUBCUT ×2 (17:03→22:10)
[2020-03-26 21:30] LABS: Glucose, Whole Blood 216 mg/dL (60-115)
[2020-03-26] MEDS: Atorvastatin Calcium 80 MG TABLET PO (22:09)
[2020-03-27] VITALS: BP 153/63; PULSE 86; RESP 14; TEMP 36.6; O2SAT 96
[2020-03-27] MEDS: Metoclopramide HCl 5 MG TABLET PO (02:41)
[2020-03-27] MEDS: Heparin Sodium,Porcine 5,000 UNIT/ML VIAL 5000 UNIT SUBCUT ×3 (05:03→20:39)
[2020-03-27 06:30] LABS: MANUAL DIFF FLAG NO
[2020-03-27 06:45] LABS: Basophils Absolute Auto 0.2 X10*3/uL (0.0-0.2); Basophils Percent Auto 0.9 % (0-2); Eosinophils Absolute Auto 0.7 X10*3/uL (0.0-0.4); Eosinophils Percent Auto 3.4 % (0-4); Hematocrit 32.3 % (37-47); Hemoglobin 10.3 g/dl (12.0-16.0); Imm Gran Abs Auto 0.25 X10*3/uL (0.00-0.03); Imm Gran Pct Auto 1.3 % (0.0-0.4); Lymphocytes Absolute Auto 2.8 X10*3/uL (1.2-4.9); Lymphocytes Percent Auto 14.2 % (20-40); Mean Corpuscular HGB Conc 31.9 g/dl (31.0-35.0); Mean Corpuscular Hemoglobin 26.1 pg (27.0-33.0); Mean Platelet Volume 9.8 fL (9.4-12.3); Monocytes Absolute Auto 1.5 X10*3/uL (0.1-1.2); Monocytes Percent Auto 7.5 % (2-11); Neutrophils Absolute Auto 14.5 X10*3/uL (2.0-8.3); Neutrophils Percent Auto 72.7 % (45-73); Platelet Count 509 X10*3/uL (160-400); Red Blood Count 3.94 X10*6/uL (4.20-5.50); Red Cell Distribution Width 14.1 % (11.0-16.0); White Blood Count 19.9 X10*3/uL (4.8-10.8)
[2020-03-27 07:12] VITALS: BP 163/83; PULSE 81; RESP 18; TEMP 36.3; O2SAT 95
[2020-03-27 07:12] LABS: C Reactive Protein 18.84 mg/dL (< or = 0.50)
[2020-03-27 07:14] LABS: Anion Gap 18 (12-20); Blood Urea Nitrogen 26 mg/dL (9-16); Calcium 8.2 mg/dL (8.4-10.2); Carbon Dioxide 22 mmol/L (22-29); Chloride 106 mmol/L (96-108); Creatinine Clr Calc Pharmacy 25.5; Estimated Glomerular Filt Rate 17; Glucose Random 193 mg/dL (60-115); Potassium 4.2 mmol/l (3.3-5.1); Sodium 142 mmol/L (135-145)
[2020-03-27 07:36] LABS: Erythrocyte Sedimentation Rate 102 MM/HR (0-20)
[2020-03-27 07:55] LABS: Glucose, Whole Blood 179 mg/dL (60-115)
[2020-03-27] MEDS: polyethylene glycoL 3350 17 GM POWD.PACK PO (08:34)
[2020-03-27 08:36] VITALS: BP 163/83; PULSE 81
[2020-03-27] MEDS: Linezolid 600 MG TABLET PO ×2 (08:36→20:40)
[2020-03-27] MEDS: amLODIPine Besylate 10 MG TABLET PO (08:36)
[2020-03-27] MEDS: Gabapentin 300 MG CAPSULE PO ×3 (08:37→20:40)
[2020-03-27] MEDS: Insulin Lispro 100 UNIT/ML 3 ML VIAL SUBCUT ×4 (08:37→20:40)
[2020-03-27] MEDS: Insulin Glargine,Hum.rec.anlog 100 UNIT/ML 10 ML VIAL 28 UNIT SUBCUT (08:38)
[2020-03-27 11:07] LABS: Glucose, Whole Blood 236 mg/dL (60-115)
[2020-03-27 11:53] VITALS: BP 153/67; PULSE 85; RESP 15; TEMP 36.2; O2SAT 97
--- NOTE | 2020-03-27 12:06 | PM.PNNEP ---
Subjective Subjective Date of Service: 03/28/20 Principal diagnosis: AMY Interval history: Feeling better No new complaints Physical Exam Vital Signs: Vital Signs: Last Vital Signs Temp 97.2 F 03/27/20 11:53 Pulse 85 03/27/20 11:53 Resp 15 03/27/20 11:53 BP 153/67 H 03/27/20 11:53 Pulse Ox 97 03/27/20 11:53 Body Mass Index 39.6 Const: General: alert and awake Neck: Neck: Yes supple Resp: Auscultation: clear to auscultation bilaterally Cardio: Jugular venous distension: no JVD Heart sounds: no gallops and no rubs GI: Auscultation: normal bowel sounds Neuro: Motor exam (neuro): No Asterixis during motor activity present Assessment & Plan Assessment and plan (1) AMY (acute kidney injury): Problem details: AMY in the setting if diabetic foot infection/osteo DDx; ATN due to ifectitious process/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 Prefer to avoid PICC Status: Acute Time Spent With Patient Time: Total time spent is greater than 50% in coordination of care (as documented) at patient's floor/unit and/or counseling patient:
[2020-03-27] MEDS: Amoxicillin/Potassium Clav 500 MG TABLET PO ×2 (13:00→22:39)
[2020-03-27] MEDS: Insulin Lispro 100 UNIT/ML 3 ML VIAL 8 UNIT SUBCUT ×3 (13:01→20:41)
--- NOTE | 2020-03-27 14:44 | MHC.CLN ---
F/U PO INTAKE VARIABLE BUT >50% CURRENTLY NPO RECOMMEND 1500 CALORIES PER DAY TO PROMOTE SLOW WT LOSS FOLLOWING
--- NOTE | 2020-03-27 15:16 | P.PNIM_ITS ---
Subjective Subjective Date of Service: 03/27/20 Interval History: no pain of L TMTA stump denies fever/chills consistently refuses BKA recommended by Dr Peguero and again refuses after extensiv e discussion this am lost PIV access, unable to replace despite multiple attempts by residential treatment staff Physical Exam Vital Signs: Vital Signs: Last Vital Signs Temp 97.2 F 03/27/20 11:53 Pulse 85 03/27/20 11:53 Resp 15 03/27/20 11:53 BP 153/67 H 03/27/20 11:53 Pulse Ox 97 03/27/20 11:53 Body Mass Index 39.6 gen: NAD neck: supple lungs; CTAB CV: RRR no m/r/g abd: soft/NT/ND ext: L TMTA stump with dry plantar ulcer, no purulence, minimal surrounding erythema, extensive induration, no lymphangitic streaking psych: appropriate affect Objective Data Current Medications Generic Name Dose Route Start Last Admin Trade Name Freq PRN Reason Stop Dose Admin Amlodipine Besylate 10 mg 03/19/20 09:00 03/27/20 08:36 Amlodipine Besylate 10 Mg Tablet PO 10 mg DAILY ANGÉLICA Administration Protocol Amoxicillin/Clavulanate Potassium 500 mg 03/27/20 11:00 03/27/20 13:00 Amoxicillin/Potassium Clav 500 Mg Tablet PO 500 mg Q12H ANGÉLICA Administration Atorvastatin Calcium 80 mg 03/19/20 21:00 03/26/20 22:09 Atorvastatin Calcium 80 Mg Tablet PO 80 mg BEDTIME ANGÉLICA Administration Clopidogrel Bisulfate 75 mg 03/20/20 09:00 03/21/20 08:26 Clopidogrel Bisulfate 75 Mg Tablet PO 75 mg DAILY ANGÉLICA Administration Gabapentin 300 mg 03/19/20 09:00 03/27/20 08:37 Gabapentin 300 Mg Capsule PO 300 mg TID ANGÉLICA Administration Heparin Sodium (Porcine) 5,000 unit 03/19/20 05:00 03/27/20 12:59 Heparin Sodium,Porcine 5,000 Unit/Ml Vial SUBCUT 5,000 unit Q8H ANGÉLICA Administration Insulin Glargine 28 unit 03/27/20 09:00 03/27/20 08:38 Insulin Glargine,Hum.Rec.Anlog 100 Unit/Ml 10 Ml Vial SUBCUT 28 unit DAILY ANGÉLICA Administration Insulin Human Lispro 0 unit 03/20/20 16:30 03/27/20 12:59 Insulin Lispro 100 Unit/Ml 3 Ml Vial SUBCUT 4 unit QIDACHS [facility] Administration Protocol Insulin Human Lispro 8 unit 03/27/20 11:30 03/27/20 13:01 Insulin Lispro 100 Unit/Ml 3 Ml Vial SUBCUT 8 unit QIDAS [facility] Administration Linezolid 600 mg 03/21/20 09:00 03/27/20 08:36 Linezolid 600 Mg Tablet PO 600 mg Q12H ANGÉLICA Administration Ondansetron HCl 4 mg 03/23/20 17:45 03/24/20 04:28 Ondansetron Hcl 4 Mg/2 Ml Vial IVPUSH 4 mg Q8H PRN Administration Nausea Polyethylene Glycol 17 gm 03/25/20 23:35 03/27/20 08:34 Polyethylene Glycol 3350 17 Gm Powd.Pack PO 17 gm DAILY [facility] Administration Sodium Chloride 3 ml 03/19/20 08:00 03/27/20 08:37 0.9 % Sodium Chloride Flush 3 Ml Syringe IVFLUSH Not Given QSHIFT [facility] Labs CBC & Chem 7: 03/27/20 05:53 03/27/20 05:53 Labs: Laboratory Results - last 24 hr 03/26/20 03/26/20 03/27/20 16:53 21:25 05:53 WBC 19.9 H RBC 3.94 L Hgb 10.3 L Hct 32.3 L MCV 82.0 MCH 26.1 L MCHC 31.9 RDW 14.1 Plt Count 509 H MPV 9.8 Immature Gran % (Auto) 1.3 H Neut % (Auto) 72.7 Lymph % (Auto) 14.2 L [place] % (Auto) 7.5 Eos % (Auto) 3.4 Baso % (Auto) 0.9 Lymph # (Auto) 2.8 [place] # (Auto) 1.5 H Eos # (Auto) 0.7 H Baso # (Auto) 0.2 Abs Immat Gran (auto) 0.25 H Absolute Neuts (auto) 14.5 H Absolute Nucleated RBC 0.000 Nucleated RBC % (auto) 0.0 ESR Sodium Potassium Chloride Carbon Dioxide Anion Gap BUN Creatinine Estim Creat Clear Calc Estimated GFR POC Glucose 214 H 216 H Random Glucose Calcium C-Reactive Protein 03/27/20 03/27/20 03/27/20 05:53 05:53 05:53 WBC RBC Hgb Hct MCV MCH MCHC RDW Plt Count MPV Immature Gran % (Auto) Neut % (Auto) Lymph % (Auto) [place] % (Auto) Eos % (Auto) Baso % (Auto) Lymph # (Auto) [place] # (Auto) Eos # (Auto) Baso # (Auto) Abs Immat Gran (auto) Absolute Neuts (auto) Absolute Nucleated RBC Nucleated RBC % (auto) ESR 102 H Sodium 142 Potassium 4.2 Chloride 106 Carbon Dioxide 22 Anion Gap 18 BUN 26 H Creatinine 2.95 H Estim Creat Clear Calc 25.5 Estimated GFR 17 POC Glucose Random Glucose 193 H Calcium 8.2 L C-Reactive Protein 18.84 H 03/27/20 03/27/20 07:10 10:57 WBC RBC Hgb Hct MCV MCH MCHC RDW Plt Count MPV Immature Gran % (Auto) Neut % (Auto) Lymph % (Auto) [place] % (Auto) Eos % (Auto) Baso % (Auto) Lymph # (Auto) [place] # (Auto) Eos # (Auto) Baso # (Auto) Abs Immat Gran (auto) Absolute Neuts (auto) Absolute Nucleated RBC Nucleated RBC % (auto) ESR Sodium Potassium Chloride Carbon Dioxide Anion Gap BUN Creatinine Estim Creat Clear Calc Estimated GFR POC Glucose 179 H 236 H Random Glucose Calcium C-Reactive Protein Microbiology Microbiology Results: Microbiology 03/18/20 21:05 Blood - Venous Blood Culture - Final No growth after 5 days. 03/18/20 21:02 Blood - Venous Blood Culture - Final No growth after 5 days. 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 Prefer to avoid PICC Status: Acute (2) Osteomyelitis: Status: Acute Assessment and Plan: hospital d#9 49yo F with uncontrolled DM2 admitted for nonhealing TMTA stump with osteomyelitis # osteomyelitis/DM foot infection/TMTA ulcer - wound culture grew VRE; BCx negative - refused BKA recommended by surgeon. discussed with ID, plan 4 wk PO ABX: linezolid d#11/15, amox/clav d#06/18 # AMY/proteinuria - thought secondary to vancomycin-induced ATN vs postinfectious GN, superimposed on DM neropathy - Nephrology following - SCr improving - holding SAMEER-I lisinopril - holding clopidogrel for possible outpt renal biopsy # uncontrolled DM2, A1c 12.4 - further increase Lantus + Humalog, discussed importance of adherence/diet # DM neuropathy - continue gabapentin # HTN - amlodipine, holding SAMEER-I # HLD - atorvastatin # VTE ppx - UFH # dispo - home with VNA pending further improvement in renal function
[2020-03-27 16:00] VITALS: BP 149/70; PULSE 86; RESP 18; TEMP 37; O2SAT 94
--- NOTE | 2020-03-27 16:09 | MHC.CM.PN ---
PATIENT IS CURRENTLY REFUSING AMPUTATION. MAY NEED BALLESTEROS CATH AND LT ABX CURRENTLY AWAITING ID INPUT. PLAN IS FOR PATIENT TO REMAIN A FEW MORE DAYS
[2020-03-27 16:31] LABS: Glucose, Whole Blood 140 mg/dL (60-115)
[2020-03-27 18:56] VITALS: BP 149/66; PULSE 84; RESP 19; TEMP 36.8; O2SAT 94
[2020-03-27 20:36] LABS: Glucose, Whole Blood 165 mg/dL (60-115)
[2020-03-27] MEDS: Atorvastatin Calcium 80 MG TABLET PO (20:40)
[2020-03-28 04:02] VITALS: BP 151/67; PULSE 80; RESP 20; TEMP 36.9; O2SAT 98
[2020-03-28] MEDS: Heparin Sodium,Porcine 5,000 UNIT/ML VIAL 5000 UNIT SUBCUT ×3 (05:57→20:57)
[2020-03-28 06:47] LABS: Basophils Absolute Auto 0.2 X10*3/uL (0.0-0.2); Basophils Percent Auto 0.8 % (0-2); Eosinophils Absolute Auto 0.9 X10*3/uL (0.0-0.4); Eosinophils Percent Auto 4.3 % (0-4); Hematocrit 34.1 % (37-47); Hemoglobin 10.6 g/dl (12.0-16.0); Imm Gran Abs Auto 0.14 X10*3/uL (0.00-0.03); Imm Gran Pct Auto 0.7 % (0.0-0.4); Lymphocytes Absolute Auto 3.3 X10*3/uL (1.2-4.9); Lymphocytes Percent Auto 15.9 % (20-40); MANUAL DIFF FLAG SCAN; Mean Corpuscular HGB Conc 31.1 g/dl (31.0-35.0); Mean Corpuscular Hemoglobin 25.6 pg (27.0-33.0); Mean Corpuscular Volume 82.4 fL (80-98); Mean Platelet Volume 9.7 fL (9.4-12.3); Monocytes Absolute Auto 1.6 X10*3/uL (0.1-1.2); Monocytes Percent Auto 7.7 % (2-11); Neutrophils Absolute Auto 14.7 X10*3/uL (2.0-8.3); Neutrophils Percent Auto 70.6 % (45-73); Platelet Count 539 X10*3/uL (160-400); Red Blood Count 4.14 X10*6/uL (4.20-5.50); Red Cell Distribution Width 13.9 % (11.0-16.0); SCAN SMEAR FLAG 1; White Blood Count 20.8 X10*3/uL (4.8-10.8)
[2020-03-28 07:16] LABS: Anion Gap 16 (12-20); Blood Urea Nitrogen 23 mg/dL (9-16); Calcium 8.2 mg/dL (8.4-10.2); Carbon Dioxide 24 mmol/L (22-29); Chloride 104 mmol/L (96-108); Creatinine Clr Calc Pharmacy 33.1; Estimated Glomerular Filt Rate 23; Glucose Random 166 mg/dL (60-115); Potassium 3.8 mmol/l (3.3-5.1); Sodium 140 mmol/L (135-145)
[2020-03-28 07:35] VITALS: BP 156/65; PULSE 80; RESP 17; TEMP 36.9; O2SAT 98
[2020-03-28 08:31] LABS: Glucose, Whole Blood 164 mg/dL (60-115)
[2020-03-28] MEDS: Gabapentin 300 MG CAPSULE PO ×3 (09:00→20:58)
[2020-03-28 09:01] VITALS: BP 156/65; PULSE 80
[2020-03-28] MEDS: amLODIPine Besylate 10 MG TABLET PO (09:01)
[2020-03-28] MEDS: Insulin Glargine,Hum.rec.anlog 100 UNIT/ML 10 ML VIAL 28 UNIT SUBCUT (09:01)
[2020-03-28] MEDS: Insulin Lispro 100 UNIT/ML 3 ML VIAL SUBCUT ×4 (09:02→20:57)
[2020-03-28] MEDS: Insulin Lispro 100 UNIT/ML 3 ML VIAL 8 UNIT SUBCUT ×4 (09:02→20:57)
--- NOTE | 2020-03-28 10:11 | MHC.CM.PN ---
Addendum entered by Shirlene Smith 03/28/20 12:38: CASE DISCUSSED ON MULTIPLE DISCIPLINARY ROUNDS M, HOSPITALIST REQUESTED TO CHECK TO SEE IF INSURANCE AUTHORIZATION IS NEEDED FOR PO [id number]. I CALLED TO PATIENTS PHARMACY [facility] [phone] AND SPOKE WITH ANGELICA PHARMACIST , NO INSURANCE AUTHORIZATION NEEDED, AND HE RAN THE SCRIPT , PATIENT WILL NEED TO BE RESPONSIBLE FOR THE CO PAY OF $10:00 Original Note: nurse career counselor note electronic medical record reviewed , per documentation patient has spoken with vascular surgeon dr bueno and is consistently refusing below knee amputation for diabetic non-healing left tmta stump with plantar ulcer (uncontrolled diabetic with insulin adjustments, followed by i.d physician now recommending oral antibiotics for longer duration renal physician continues to follow labS FOR AMY. TECHNICAL BUYER TO CONTINUE TO FOLLOW FOR ANY CHANGES IN DISCHARGE NEEDS DISCHARGE [facility] HOME WITH RESUMPTION OF HER [place] [facility] FOR NURSING PCP PATIENT TO [facility] FOR POST HOSPITAL DISCHARGE FOLLOW UP MAY NEED ID AND RENAL FOLLOW UP TRANSPORTATION FAMILY
--- NOTE | 2020-03-28 10:19 | PM.PNNEP ---
Subjective Subjective Date of Service: 03/28/20 Principal diagnosis: AMY Interval history: Feels better No fever Physical Exam Vital Signs: Vital Signs: Last Vital Signs Temp 98.5 F 03/28/20 07:35 Pulse 80 03/28/20 09:01 Resp 17 03/28/20 07:35 BP 156/65 H 03/28/20 09:01 Pulse Ox 98 03/28/20 07:35 Body Mass Index 39.6 Const: General: alert and awake Neck: Neck: Yes supple Resp: Auscultation: clear to auscultation bilaterally Cardio: Jugular venous distension: no JVD Heart sounds: no gallops and no rubs GI: Auscultation: normal bowel sounds Neuro: Motor exam (neuro): No Asterixis during motor activity present Assessment & Plan Assessment and plan (1) AMY (acute kidney injury): Problem details: AMY in the setting if diabetic foot infection/osteo DDx; ATN due to ifectitious process/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
[2020-03-28 10:26] LABS: SLIDE REVIEW VERIFIED
[2020-03-28 10:52] LABS: Complement C3 195 mg/dL (83-193)
[2020-03-28] MEDS: Linezolid 600 MG TABLET PO ×2 (11:08→22:07)
[2020-03-28] MEDS: Amoxicillin/Potassium Clav 500 MG TABLET PO ×2 (11:09→22:07)
--- NOTE | 2020-03-28 11:11 | HO.PM.IMPN ---
Subjective Subjective Date of Service: 03/28/20 Interval History: SCr continues to improve denies fever/chills/nausea/vomiting/diarrhea denies LLE pain Physical Exam Vital Signs: Vital Signs: Last Vital Signs Temp 98.5 F 03/28/20 07:35 Pulse 80 03/28/20 09:01 Resp 17 03/28/20 07:35 BP 156/65 H 03/28/20 09:01 Pulse Ox 98 03/28/20 07:35 Body Mass Index 39.6 gen: NAD neck: supple lungs; CTAB CV: RRR no m/r/g abd: soft/NT/ND ext: L TMTA stump in dressing, no lymphangitic streaking proximally psych: appropriate affect Objective Data Current Medications Generic Name Dose Route Start Last Admin Trade Name Casq PRN Reason Stop Dose Admin Amlodipine Besylate 10 mg 03/19/20 09:00 03/28/20 09:01 Amlodipine Besylate 10 Mg Tablet PO 10 mg DAILY ANGÉLICA Administration Protocol Amoxicillin/Clavulanate Potassium 500 mg 03/27/20 11:00 03/28/20 11:09 Amoxicillin/Potassium Clav 500 Mg Tablet PO 500 mg Q12H ANGÉLICA Administration Atorvastatin Calcium 80 mg 03/19/20 21:00 03/27/20 20:40 Atorvastatin Calcium 80 Mg Tablet PO 80 mg BEDTIME ANGÉLICA Administration Clopidogrel Bisulfate 75 mg 03/20/20 09:00 03/21/20 08:26 Clopidogrel Bisulfate 75 Mg Tablet PO 75 mg DAILY ANGÉLICA Administration Gabapentin 300 mg 03/19/20 09:00 03/28/20 09:00 Gabapentin 300 Mg Capsule PO 300 mg TID ANGÉLICA Administration Heparin Sodium (Porcine) 5,000 unit 03/19/20 05:00 03/28/20 05:57 Heparin Sodium,Porcine 5,000 Unit/Ml Vial SUBCUT 5,000 unit Q8H ANGÉLICA Administration Insulin Glargine 28 unit 03/27/20 09:00 03/28/20 09:01 Insulin Glargine,Hum.Rec.Anlog 100 Unit/Ml 10 Ml Vial SUBCUT 28 unit DAILY ANGÉLICA Administration Insulin Human Lispro 0 unit 03/20/20 16:30 03/28/20 09:02 Insulin Lispro 100 Unit/Ml 3 Ml Vial SUBCUT 2 unit QIDACHS ANGÉLICA Administration Protocol Insulin Human Lispro 8 unit 03/27/20 11:30 03/28/20 09:02 Insulin Lispro 100 Unit/Ml 3 Ml Vial SUBCUT 8 unit QIDACHS ANGÉLICA Administration Linezolid 600 mg 03/28/20 10:00 03/28/20 11:08 Linezolid 600 Mg Tablet PO 600 mg Q12H ANGÉLICA Administration Polyethylene Glycol 17 gm 03/25/20 23:35 03/28/20 09:03 Polyethylene Glycol 3350 17 Gm Powd.Pack PO Not Given DAILY ANGÉLICA Labs CBC & Chem 7: 03/28/20 06:03 03/28/20 06:03 Microbiology Microbiology Results: Microbiology 03/18/20 21:05 Blood - Venous Blood Culture - Final No growth after 5 days. 03/18/20 21:02 Blood - Venous Blood Culture - Final No growth after 5 days. 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 discussed with ID, plan 4 wk PO ABX: linezolid d#12/16, amox/clav d#07/16 # AMY/proteinuria - thought secondary to vancomycin-induced ATN vs postinfectious GN, superimposed on DM nephropathy - Nephrology following - SCr continues to improve - holding SAMEER-I lisinopril - holding clopidogrel for possible outpt renal biopsy # uncontrolled DM2, A1c 12.4 - increased Lantus + Humalog, discussed importance of adherence/diet # DM neuropathy - continue gabapentin # HTN - amlodipine, holding SAMEER-I # HLD - atorvastatin # VTE ppx - UFH # dispo - home with VNA pending further improvement in renal function, possibly tomorrow
[2020-03-28 11:14] LABS: Glucose, Whole Blood 213 mg/dL (60-115)
[2020-03-28 13:42] LABS: Myeloperoxidase Antibody <1.0 AI; Proteinase 3 PR3 Antibodies <1.0 AI
[2020-03-28 15:25] VITALS: BP 156/69; PULSE 77; RESP 18; TEMP 36.6; O2SAT 97
[2020-03-28 15:58] LABS: Glucose, Whole Blood 204 mg/dL (60-115)
[2020-03-28 20:31] LABS: Glucose, Whole Blood 191 mg/dL (60-115)
[2020-03-28] MEDS: Atorvastatin Calcium 80 MG TABLET PO (20:58)
[2020-03-28 23:03] VITALS: BP 144/63; PULSE 82; RESP 20; TEMP 36.7; O2SAT 97
[2020-03-29] MEDS: Heparin Sodium,Porcine 5,000 UNIT/ML VIAL 5000 UNIT SUBCUT (05:20)
[2020-03-29 07:12] LABS: MANUAL DIFF FLAG NO
[2020-03-29 07:19] VITALS: BP 159/82; PULSE 74; RESP 17; TEMP 36.2; O2SAT 96
[2020-03-29 07:28] LABS: Basophils Absolute Auto 0.2 X10*3/uL (0.0-0.2); Basophils Percent Auto 1.1 % (0-2); Eosinophils Absolute Auto 0.8 X10*3/uL (0.0-0.4); Eosinophils Percent Auto 4.8 % (0-4); Hematocrit 35.3 % (37-47); Hemoglobin 10.9 g/dl (12.0-16.0); Imm Gran Pct Auto 0.6 % (0.0-0.4); Lymphocytes Absolute Auto 3.1 X10*3/uL (1.2-4.9); Lymphocytes Percent Auto 18.2 % (20-40); Mean Corpuscular HGB Conc 30.9 g/dl (31.0-35.0); Mean Corpuscular Hemoglobin 25.4 pg (27.0-33.0); Mean Corpuscular Volume 82.3 fL (80-98); Mean Platelet Volume 9.2 fL (9.4-12.3); Monocytes Absolute Auto 1.4 X10*3/uL (0.1-1.2); Neutrophils Absolute Auto 11.5 X10*3/uL (2.0-8.3); Neutrophils Percent Auto 67.3 % (45-73); Platelet Count 528 X10*3/uL (160-400); Red Blood Count 4.29 X10*6/uL (4.20-5.50); Red Cell Distribution Width 13.9 % (11.0-16.0); White Blood Count 17.1 X10*3/uL (4.8-10.8)
[2020-03-29 08:01] LABS: Anion Gap 18 (12-20); Blood Urea Nitrogen 19 mg/dL (9-16); C Reactive Protein 13.04 mg/dL (< or = 0.50); Calcium 8.2 mg/dL (8.4-10.2); Carbon Dioxide 22 mmol/L (22-29); Chloride 103 mmol/L (96-108); Creatinine Clr Calc Pharmacy 39.4; Estimated Glomerular Filt Rate 28; Glucose Random 219 mg/dL (60-115); Potassium 4.2 mmol/l (3.3-5.1); Sodium 139 mmol/L (135-145)
[2020-03-29 08:13] LABS: Glucose, Whole Blood 215 mg/dL (60-115)
[2020-03-29 08:32] LABS: Glucose, Whole Blood 185 mg/dL (60-115)
[2020-03-29 08:36] LABS: Glucose, Whole Blood 209 mg/dL (60-115)
[2020-03-29] MEDS: Insulin Glargine,Hum.rec.anlog 100 UNIT/ML 10 ML VIAL 28 UNIT SUBCUT (08:44)
[2020-03-29] MEDS: Insulin Lispro 100 UNIT/ML 3 ML VIAL SUBCUT (08:45)
[2020-03-29] MEDS: Insulin Lispro 100 UNIT/ML 3 ML VIAL 8 UNIT SUBCUT (08:46)
[2020-03-29] MEDS: Gabapentin 300 MG CAPSULE PO (08:47)
[2020-03-29] MEDS: amLODIPine Besylate 10 MG TABLET PO (08:47)
[2020-03-29] MEDS: Linezolid 600 MG TABLET PO (08:48)
--- NOTE | 2020-03-29 09:11 | PM.PNNEP ---
Subjective Subjective Date of Service: 03/29/20 Principal diagnosis: AMY Interval history: Events noted Feeling better Physical Exam Vital Signs: Vital Signs: Last Vital Signs Temp 97.2 F 03/29/20 07:19 Pulse 74 03/29/20 07:19 Resp 17 03/29/20 07:19 BP 159/82 H 03/29/20 07:19 Pulse Ox 96 03/29/20 07:19 Body Mass Index 39.6 Const: General: alert and awake Neck: Neck: Yes supple Resp: Auscultation: clear to auscultation bilaterally Cardio: Jugular venous distension: no JVD Heart sounds: no gallops and no rubs GI: Auscultation: normal bowel sounds Neuro: Motor exam (neuro): No Asterixis during motor activity present Assessment & Plan Assessment and plan (1) AMY (acute kidney injury): Problem details: AMY in the setting if diabetic foot infection/osteo DDx; ATN due to ifectitious process/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
[2020-03-29] MEDS: Acetaminophen 325 MG TABLET 650 MG PO (10:19)
[2020-03-29] MEDS: Amoxicillin/Potassium Clav 500 MG TABLET PO (10:19)
--- NOTE | 2020-03-29 10:20 | W.MHC.F2F ---
Service Date Service Date: 03/29/20 Encounter Date of encounter: 03/29/20 Reasons for Services Reason for correction: wound care, diabetic teaching, monitoring of unstable blood sugar, medication management and medication treatment Reason for physical therapy: home safety and mobility, therapeutic exercises, restore joint function, gait/transfer training, assess need for DME, ADL training and energy conservation MD Overseeing Care: Farhana Ellison Homebound: Leaving the home is medically contraindicated at this time without the asist of a device and/or another person due th the listed conditions above and below. Reason homebound: weakness related to hospital stay and non-weight bearing Homebound supporting statement: The patient was admitted to [facility] 03/19-03/29/20 for sepsis from diabetic foot ulcer with osteomyelitis. She declined BKA and is being discharged on oral antibiotics. She should be non-weight bearing on the L TMTA stump. Wound care daily: wet->dry gauze, 4x4, Kerlix wrap Certification: Based on the above findings, I certify that this patient is confined to the home and needs intermittent correction care, physical therapy and/or speech therapy, or continues to need occupational therapy. The patient is under my care, and I have initiated the establishment of the plan of care. The patient will be followed by a physician who will periodically review the plan of care.
--- NOTE | 2020-03-29 10:23 | P.DS_ITS ---
DS: Providers Provider Date of admission: 03/19/20 04:10 Primary care physician: Farhana Ellison MD Consults: 03/19/20 04:10 Consult to Infectious Diseases Routine Consulting Provider: Reanna Graves Reason for consultation: left foot OM Has provider been notified: No 03/19/20 04:31 Consult to General Surgery Routine Consulting Provider: [facility] General Surgeons Reason for consultation: bone biopsy / OM Has provider been notified: No 03/19/20 09:54 Consult to Vascular Surgery Routine Consulting Provider: John Peguero Reason for consultation: Osteomyelitis left foot s/p transmet amp 03/20/20 12:24 Consult to Nephrology Routine Consulting Provider: César Martinez Reason for consultation: Amy Has provider been notified: No 03/21/20 08:56 Consult to Infectious Diseases Routine Consulting Provider: Reanna Graves Reason for consultation: Osteomyelitis Has provider been notified: No 03/25/20 10:53 Consult to Infectious Diseases Routine Consulting Provider: Reanna Graves Reason for consultation: follow up on foot infection worsening leucocytosis 03/25/20 11:32 Consult to Vascular Surgery Routine Consulting Provider: John Peguero Reason for consultation: follow up on worsening foot infection and leucocytosis DS: Diagnosis Discharge Diagnosis (1) AMY (acute kidney injury): Status: Acute (2) Sepsis: Status: Acute (3) Diabetic foot ulcer with osteomyelitis: Status: Acute (4) Osteomyelitis: Status: Acute (5) VRE (vancomycin resistant enterococcus) culture positive: Status: Acute (6) Uncontrolled diabetes mellitus: Status: Acute DS: Medications Discharge Medications Home Medications: New Medications amoxicillin-pot clavulanate 500 mg PO Q12H 25 Days #50 tab 03/28/20 linezolid 600 mg PO Q12H 20 Days #40 tab 03/28/20 Continued Medications Lantus U-100 Insulin 50 units BEDTIME 03/19/20 03/19/20 amlodipine 1 tab PO DAILY 03/19/20 03/19/20 atorvastatin 1 tab PO BEDTIME 03/19/20 03/19/20 gabapentin 1 cap PO TID 03/19/20 03/19/20 insulin aspart U-100 [Novolog 20 unit SUBCUT TIDAC 03/19/20 03/19/20 U-100 Insulin aspart] linezolid 1 tab PO BID 03/19/20 03/19/20 Plavix 75 mg PO DAILY #1 cap 03/29/20 Discontinued Medications furosemide 1 tab PO DAILY 03/19/20 03/19/20 History lisinopril 1 tab PO DAILY 03/19/20 03/19/20 History DS: Summary Hospital Course Hospital Course: From the admission history and physical by hospitalist Sushil Vazquez, 03/19/20: 49 y/o female with extended PMHX including nonhealing left foot diabetic ulcer who presented from home due to on and off episodes of fever for the past 4 days. 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 Per patient since end of last year 2019 has been having a nonhealing wound in the area of the stump which has been getting worse since. Patient was evaluated at the wound care clinic on friday after a bone biopsy was performed recently and was started on linezolid BID per cultures results. Patient reports that has been feeling worse in the past days for what decided to come to the ED for further evaluation. On presentation to the ED there was no evidence of fever. WBC of 19.4. CT of LLE concerning for OM. Patient was given one dose of Vanco and Zosyn and decision for admission was given. Patient was seen and evaluated at the bedside, infected wound draining serosanguineous fluids, tender to touch and surrounded erythema, hot to touch. The patient was admitted to the medical/surgical floor. She was placed on vancomycin and piperacillin-tazobactam. Wound culture grew VRE; blood cultures were negative. A [id number] amputation was recommended by her vascular surgeon, but she refused. She could not be convinced otherwise despite the gravity of her infection. ID was consulted. She was changed to linezolid and amoxicillin-clavulanate for 4 weeks. She developed acute kidney injury with proteinuria. This was attributed to vancomycin-induced ATN superimposed on diabetic nephropathy. Her serum creatinine improved with stopping vancomycin and holding lisinopril. Her diabetes is uncontrlled with A1c 12.4 and the importance of excellent glycemic control was counseled. She was discharged home with VNA/home PT and is to remain non-weight bearing on the L TMTA stump. She should follow up with Vascular Surgery, Infectious Disease, and Nephrology in 2 weeks. Laboratory studies to be in 2 weeks were ordered: CBCd, C-reactive protein, ESR, and BMP. She should see her primary care doctor within 1 week. Time Spent with Patient Time attestation: Total time spent providing and/or coordinating discharge serv ices: 40 Discharge coordination time: Greater than 30 minutes Physical Exam Vital Signs: Vital Signs: Last Vital Signs Temp 97.2 F 03/29/20 07:19 Pulse 74 03/29/20 07:19 Resp 17 03/29/20 07:19 BP 159/82 H 03/29/20 07:19 Pulse Ox 96 03/29/20 07:19 Body Mass Index 39.6 gen: NAD neck: supple lungs; CTAB CV: RRR no m/r/g abd: soft/NT/ND ext: L TMTA stump with dry plantar ulcer, no purulence, minimal surrounding erythema, extensive induration, no lymphangitic streaking psych: appropriate affect DS: Data Additional Comments Additional comments: Laboratory Results WBC 17.1 X10*3/uL (4.8-10.8) H 03/29/20 06:49 RBC 4.29 X10*6/uL (4.20-5.50) 03/29/20 06:49 Hgb 10.9 g/dl (12.0-16.0) L 03/29/20 06:49 Hct 35.3 % (37-47) L 03/29/20 06:49 MCV 82.3 fL (80-98) 03/29/20 06:49 MCH 25.4 pg (27.0-33.0) L 03/29/20 06:49 MCHC 30.9 g/dl (31.0-35.0) L 03/29/20 06:49 RDW 13.9 % (11.0-16.0) 03/29/20 06:49 Plt Count 528 X10*3/uL (160-400) H 03/29/20 06:49 MPV 9.2 fL (9.4-12.3) L 03/29/20 06:49 Immature Gran % (Auto) 0.6 % (0.0-0.4) H 03/29/20 06:49 Neut % (Auto) 67.3 % (45-73) 03/29/20 06:49 Lymph % (Auto) 18.2 % (20-40) L 03/29/20 06:49 [place] % (Auto) 8.0 % (2-11) 03/29/20 06:49 Eos % (Auto) 4.8 % (0-4) H 03/29/20 06:49 Baso % (Auto) 1.1 % (0-2) 03/29/20 06:49 Lymph # (Auto) 3.1 X10*3/uL (1.2-4.9) 03/29/20 06:49 [place] # (Auto) 1.4 X10*3/uL (0.1-1.2) H 03/29/20 06:49 Eos # (Auto) 0.8 X10*3/uL (0.0-0.4) H 03/29/20 06:49 Baso # (Auto) 0.2 X10*3/uL (0.0-0.2) 03/29/20 06:49 Abs Immat Gran (auto) 0.10 X10*3/uL (0.00-0.03) H 03/29/20 06:49 Absolute Neuts (auto) 11.5 X10*3/uL (2.0-8.3) H 03/29/20 06:49 Absolute Nucleated RBC 0.000 X10*3/uL (0.0-0.012) 03/29/20 06:49 Nucleated RBC % (auto) 0.0 /100WBC (0.0-0.2) 03/29/20 06:49 Smear Tech's Comments VERIFIED 03/28/20 06:03 ESR 102 MM/HR (0-20) H 03/27/20 05:53 Sodium 139 mmol/L (135-145) 03/29/20 06:49 Potassium 4.2 mmol/l (3.3-5.1) 03/29/20 06:49 Chloride 103 mmol/L (96-108) 03/29/20 06:49 Carbon Dioxide 22 mmol/L (22-29) 03/29/20 06:49 Anion Gap 18 (12-20) 03/29/20 06:49 BUN 19 mg/dL (9-16) H 03/29/20 06:49 Creatinine 1.91 mg/dL (0.5-1.4) H 03/29/20 06:49 Estim Creat Clear Calc 39.4 03/29/20 06:49 Estimated GFR 28 03/29/20 06:49 POC Glucose 215 mg/dL (60-115) H 03/29/20 07:16 Random Glucose 219 mg/dL (60-115) H 03/29/20 06:49 Estimat Average Glucose 309 mg/dL 03/20/20 13:39 Hemoglobin A1c % 12.4 % 03/20/20 13:39 Lactic Acid 2.0 mmol/L (0.5-2.0) 03/18/20 21:02 Calcium 8.2 mg/dL (8.4-10.2) L 03/29/20 06:49 C-Reactive Protein 13.04 mg/dL (< or = 0.50) H 03/29/20 06:49 Urine Color RED 03/21/20 16:14 Urine Appearance HAZY 03/21/20 16:14 Urine pH 5.5 (5.0-8.0) 03/21/20 16:14 Ur Specific [place] 1.010 (1.005-1.025) 03/21/20 16:14 Urine Protein 2+ MG/DL (NEG-TRACE) H 03/21/20 16:14 Urine Glucose (UA) 100 MG/DL (NEG) H 03/21/20 16:14 Urine Ketones NEG MG/DL (NEG) 03/21/20 16:14 Urine Blood 3+ (NEG) H 03/21/20 16:14 Urine Nitrite NEG (NEG) 03/21/20 16:14 Ur Leukocyte Esterase 2+ (NEG) H 03/21/20 16:14 Urine RBC TNTC /HPF (0) H 03/21/20 16:14 Urine WBC 10-14 /HPF (0-4) H 03/21/20 16:14 Ur Squamous Epith Cells TRACE /LPF 03/21/20 16:14 Amorphous Sediment 1+ /LPF 03/21/20 16:14 Urine Bacteria TRACE /LPF 03/21/20 16:14 U Random Total Protein 153 mg/dL (<12) H 03/20/20 17:56 Ur Random Sodium 69.0 mmol/L 03/21/20 16:14 Ur Random Urea 129 mg/dL 03/21/20 16:14 Urine Creatinine 37.99 mg/dL 03/21/20 16:14 Vancomycin Trough 17.5 mcg/mL (10.0-20.0) 03/20/20 11:04 Random Vancomycin 15.0 mcg/mL (15-20) 03/21/20 01:46 IgG Total 1223 mg/dL (600-1640) 03/21/20 10:40 IgA Total 542 mg/dL (47-310) H 03/21/20 10:40 IgM 77 mg/dL (50-300) 03/21/20 10:40 [facility]ONT Interpretation SEE NOTE 03/21/20 10:40 ABIMBOLA Screen NEGATIVE (NEGATIVE) 03/21/20 10:39 ABIMBOLA Titer TNP 03/21/20 10:39 ABIMBOLA Titer 2 TNP 03/21/20 10:39 ABIMBOLA Titer 3 TNP 03/21/20 10:39 ABIMBOLA Pattern TNP 03/21/20 10:39 ABIMBOLA Pattern 2 TNP 03/21/20 10:39 ABIMBOLA Pattern 3 TNP 03/21/20 10:39 Proteinase 3 (PR3) Ab <1.0 AI 03/26/20 15:29 Myeloperoxidase Ab <1.0 AI 03/26/20 15:29 Complement C3 195 mg/dL (83-193) H 03/26/20 15:29 Complement C4 37 mg/dL (15-57) 03/26/20 15:29 Free [place] LC, Quant 116.1 mg/L (3.3-19.4) H 03/21/20 10:39 Free Lambda LC, Quant 85.3 mg/L (5.7-26.3) H 03/21/20 10:39 Free [place]/Lambda Ratio 1.36 (0.26-1.65) 03/21/20 10:39 COVID-19 (CHATA) Negative (Negative) 03/19/20 04:30 COVID-19 Clin Com See Note 03/19/20 04:30 Hep Bs Antigen Negative (Negative) 03/21/20 10:39 Hep Bs Antibody NONREACTIVE (Nonreactive) 03/21/20 10:39 Hep B Core Total Ab Nonreactive (Nonreactive) 03/21/20 10:39 Hepatitis C Ab (EIA) Nonreactive (Nonreactive) 03/21/20 10:[address] 03/18/20 20:45 IMPRESSION: Soft tissue ulceration with sinus tract extending along the distal and plantar aspects of the stump, to the medial cuneiform which is fragmented and irregular with intraosseous foci of air compatible with osteomyelitis. Septic tenosynovitis with fluid and foci of air extending proximally within the extensor digitorum longus tendon sheath. Abd US Ao-IVC-BPG 03/20/20 00:00 IMPRESSION: Compared to the prior study, ABIs appear to have decreased but still within normal limits right but is minimally decreased on the left. Inflow appears to be good. Mild tibial disease on the left. I suspect there is small vessel disease accounting for the patient's ulceration. Duplex Scan Lower Extremity Artery 03/20/20 00:00 IMPRESSION: Compared to the prior study, ABIs appear to have decreased but still within normal limits right but is minimally decreased on the left. Inflow appears to be good. Mild tibial disease on the left. I suspect there is small vessel disease accounting for the patient's ulceration. Renal Ultrasound 03/20/20 00:00 IMPRESSION: Enlarged kidneys and bilateral renal cortical thickening. Trace bilateral perinephric fluid. Discharge Plan Discharge Anticipated Discharge Date/Time: 03/29/20 10:11 Patient Disposition: Home Health Service Referrals: [facility] [Outside] (DISCHARGED HOME WITH [facility]) Farhana Ellison MD [Primary Care Provider] - Reanna Graves MD [Physician] - Meryl Haq PA [Physician [employer]] - Jamarcus Alcantara MD [Physician] - (in 2 weeks) Discharge Medications: New amoxicillin-pot clavulanate 500-125 mg Tablet 500 mg PO Q12H 25 Days Qty: 50 RF: 0 Continued Lantus U-100 Insulin 50 units BEDTIME RF: 0 insulin aspart U-100 [Novolog U-100 Insulin aspart] 100 unit/mL solution 20 unit subcut TIDAC RF: 0 atorvastatin 80 mg tablet 1 tab PO BEDTIME RF: 0 linezolid 600 mg tablet 1 tab PO BID RF: 0 gabapentin 300 mg capsule 1 cap PO TID RF: 0 amlodipine 10 mg tablet 1 tab PO DAILY RF: 0 Changed Plavix 75 mg PO DAILY Qty: 1 RF: 0 Discontinued furosemide 40 mg tablet 1 tab PO DAILY RF: 0 lisinopril 20 mg tablet 1 tab PO DAILY RF: 0 Discharge Orders: Discharge Order (Routine); Ordered 03/29/20 Ordered By: Brent Black Diet: diabetic diet and low salt diet Activity on Discharge: NWB LLE Patient Instructions: Amoxicillin/Clavulanate Potassium (By mouth), Linezolid (By mouth), Acute Kidney Injury (DC), Osteomyelitis (DC), Diabetic Foot Ulcers (DC) Other Ambulatory Orders: Basic Metabolic Panel (Routine) Timeframe: 2 Weeks Facility: [facility] - Location: Laboratory Ordered By: Brent Black Complete Blood Count Auto Diff (Routine) Timeframe: 2 Weeks Facility: [facility] - Location: Laboratory Ordered By: Brent Black C Reactive Protein (Routine) Timeframe: 2 Weeks Facility: [facility] - Location: Laboratory Ordered By: Brent Black Erythrocyte Sedimentation Rate (Routine) Timeframe: 2 Weeks Facility: [facility] - Location: Laboratory Ordered By: Brent Black Activity Restrictions/Additional Instructions: do not bear weight on the left leg Visit Report Forms: Patient Portal Discharge page Care Plan Goals: resolution of bone infection and foot ulcer, improvement in kidney function, control of diabetes Health Concerns: osteomyelitis, diabetic foot infection, acute kidney injury, uncontrolled diabetes Plan of Treatment: take antibiotics: linezolid 600 mg twice daily for 20 days, amoxicillin/clavulanate 500 mg twice daily for 25 days follow up with your primary care doctor in 1 week laboratory work in 2 weeks: BMP, CBCd, CRP, ESR specialty follow-up in 2 weeks: 1. John Peguero, Vascular Surgery [address] [facility], [address] [place] [address] 2. Devi Graves, Infectious Disease [address] [facility] [address], [address], [facility] [address] 3. Jamarcus Alcantara, Nephrology [address] [facility], [address] [place] [address] (p) [phone] 4. [facility] Wound Care [facility] [address] [place] [address]
--- NOTE | 2020-03-29 10:25 | MHC.CM.PN ---
PATIENT IS DISCHARGED HOME WITH [facility]. RN AND UNIT AWARE OF PLAN
--- NOTE | 2020-03-29 11:37 | PC.NURSE ---
Patel texted Dr. Black concerning the Plavix dose. To go home on was 75 mg of Plavix on the med sheet it stated [address] Black stated that Plavix does not come in 40 mgs 0nly 75mg or 300 mg. Continue the dose from home.
== END 2020-03-29 12:10 | disposition home health service (06) | DRG 720 ==
LOC: HO.ED 23:47 → HO.IMC 03-19 05:26 → HO.S3 03-21 20:26
PROVIDERS: Internal Medicine; Internal Medicine Hypertension Specialist; Internal Medicine Nephrology; Surgery Vascular Surgery; Admitting Provider Internal Medicine; Emergency Provider Emergency Medicine; PCP Internal Medicine; Visit Provider Family Medicine
DX: A41.9 Sepsis, unspecified organism (principal); N17.0 Acute kidney failure with tubular necrosis; E11.69 Type 2 diabetes mellitus with other specified complication; M86.672 Other chronic osteomyelitis, left ankle and foot; E11.621 Type 2 diabetes mellitus with foot ulcer; E11.42 Type 2 diabetes mellitus with diabetic polyneuropathy; Z20.828 Contact with and (suspected) exposure to other viral communicable diseases; L03.116 Cellulitis of left lower limb; E78.00 Pure hypercholesterolemia, unspecified; L97.429 Non-pressure chronic ulcer of left heel and midfoot with unspecified severity; Z79.4 Long term (current) use of insulin; Z79.02 Long term (current) use of antithrombotics/antiplatelets; Z79.899 Other long term (current) drug therapy
CPT/HCPCS: 36415; 73701; 76775; 80048; 80202; 81001; 82784; 82947; 83036; 83520; 83605; 84156; 84300; 84540; 85025; 85027; 85652; 86021; 86038; 86039; 86140; 86160; 86334; 86704; 86706; 86803; 87040; 87340; 87635; 93923; 93925; 96361; 96365; 96375; 97162; 99225; 99233; 99285; J2270; J2405; J2543; J3370; Q9967

== ENCOUNTER → 2020-04-10 13:10 | Outpatient (BNVA) | payer OTHER, SELFPAY | PROVIDERS: Visit Provider Internal Medicine | DX: E11.69 Type 2 diabetes mellitus with other specified complication (principal); M86.679 Other chronic osteomyelitis, unspecified ankle and foot; E11.65 Type 2 diabetes mellitus with hyperglycemia; Z22.39 Carrier of other specified bacterial diseases | CPT/HCPCS: 99212 ==

== ENCOUNTER 2020-04-13 12:54 | Outpatient (REF) | payer OTHER, SELFPAY ==
[2020-04-13 12:58] LABS: MANUAL DIFF FLAG NO
[2020-04-13 13:01] LABS: Basophils Absolute Auto 0.1 X10*3/uL (0.0-0.2); Basophils Percent Auto 0.9 % (0-2); Eosinophils Absolute Auto 0.6 X10*3/uL (0.0-0.4); Eosinophils Percent Auto 4.3 % (0-4); Hematocrit 34.6 % (37-47); Hemoglobin 10.8 g/dl (12.0-16.0); Imm Gran Abs Auto 0.06 X10*3/uL (0.00-0.03); Imm Gran Pct Auto 0.5 % (0.0-0.4); Lymphocytes Absolute Auto 3.2 X10*3/uL (1.2-4.9); Lymphocytes Percent Auto 24.9 % (20-40); Mean Corpuscular HGB Conc 31.2 g/dl (31.0-35.0); Mean Corpuscular Hemoglobin 25.5 pg (27.0-33.0); Mean Corpuscular Volume 81.8 fL (80-98); Mean Platelet Volume 10.6 fL (9.4-12.3); Monocytes Absolute Auto 1.1 X10*3/uL (0.1-1.2); Monocytes Percent Auto 8.7 % (2-11); Neutrophils Absolute Auto 7.8 X10*3/uL (2.0-8.3); Neutrophils Percent Auto 60.7 % (45-73); Platelet Count 380 X10*3/uL (160-400); Red Blood Count 4.23 X10*6/uL (4.20-5.50); Red Cell Distribution Width 14.2 % (11.0-16.0); White Blood Count 12.9 X10*3/uL (4.8-10.8)
[2020-04-13 13:41] LABS: Erythrocyte Sedimentation Rate 97 MM/HR (0-20)
[2020-04-13 14:33] LABS: Anion Gap 15 (12-20); Blood Urea Nitrogen 15 mg/dL (9-16); C Reactive Protein 5.73 mg/dL (< or = 0.50); Calcium 9.4 mg/dL (8.4-10.2); Carbon Dioxide 26 mmol/L (22-29); Chloride 100 mmol/L (96-108); Estimated Glomerular Filt Rate 56; Glucose Random 167 mg/dL (60-115); Potassium 4.4 mmol/l (3.3-5.1); Sodium 137 mmol/L (135-145)
== END 2020-04-13 12:55 | disposition home or self-care (01) ==
LOC: HO.LNP 12:54
PROVIDERS: PCP Internal Medicine; Visit Provider Internal Medicine
DX: E11.621 Type 2 diabetes mellitus with foot ulcer (principal)
CPT/HCPCS: 36415; 80048; 85025; 85652; 86140

== ENCOUNTER → 2020-09-06 12:33 | Outpatient (BNVA) | payer OTHER, SELFPAY | PROVIDERS: Visit Provider Internal Medicine | DX: I11.0 Hypertensive heart disease with heart failure (principal); I50.32 Chronic diastolic (congestive) heart failure; E11.8 Type 2 diabetes mellitus with unspecified complications | CPT/HCPCS: 93005; 99212 ==

== ENCOUNTER → 2020-10-03 07:26 | Outpatient (BNVA) | payer OTHER, SELFPAY | PROVIDERS: PCP Internal Medicine; Visit Provider Surgery ==

== ENCOUNTER 2020-10-05 11:45 | Outpatient (REF) | payer OTHER, SELFPAY ==
--- NOTE | ~2020-10-05 | XR_ITS ---
EXAMINATION: XR CHEST CLINICAL INFORMATION: Hyperlipidemia COMPARISON: Hyperlipidemia TECHNIQUE: 2 views of the chest were obtained. FINDINGS: No significant abnormality is noted involving the heart, lungs, mediastinum, bony thorax or soft tissues. XR/XR chest 2V IMPRESSION: Unremarkable examination.
--- NOTE | 2020-10-05 11:55 | ECG_ITS ---
Test Reason : E78.5 Blood Pressure : / mmHG Vent. Rate : 086 BPM Atrial Rate : 086 BPM P-R Int : 148 ms QRS Dur : 084 ms QT Int : 394 ms P-R-T Axes : 024 002 064 degrees QTc Int : 471 ms Normal sinus rhythm Normal ECG No previous ECGs available Referred By: Ky Meza Electronically Signed By:HOLA LEE
[2020-10-05 12:35] LABS: MANUAL DIFF FLAG NO
[2020-10-05 12:44] LABS: Basophils Absolute Auto 0.1 X10*3/uL (0.0-0.2); Basophils Percent Auto 0.8 % (0-2); Eosinophils Absolute Auto 0.4 X10*3/uL (0.0-0.4); Eosinophils Percent Auto 3.1 % (0-4); Hematocrit 37.8 % (37-47); Hemoglobin 12.2 g/dl (12.0-16.0); Imm Gran Abs Auto 0.04 X10*3/uL (0.00-0.03); Imm Gran Pct Auto 0.3 % (0.0-0.4); Lymphocytes Absolute Auto 2.8 X10*3/uL (1.2-4.9); Lymphocytes Percent Auto 23.1 % (20-40); Mean Corpuscular HGB Conc 32.3 g/dl (31.0-35.0); Mean Corpuscular Hemoglobin 26.4 pg (27.0-33.0); Mean Corpuscular Volume 81.8 fL (80-98); Mean Platelet Volume 11.2 fL (9.4-12.3); Monocytes Absolute Auto 0.9 X10*3/uL (0.1-1.2); Monocytes Percent Auto 7.2 % (2-11); Neutrophils Absolute Auto 7.8 X10*3/uL (2.0-8.3); Neutrophils Percent Auto 65.5 % (45-73); Platelet Count 405 X10*3/uL (160-400); Red Blood Count 4.62 X10*6/uL (4.20-5.50); Red Cell Distribution Width 13.4 % (11.0-16.0); White Blood Count 11.9 X10*3/uL (4.8-10.8)
[2020-10-05 12:50] LABS: Estimated Average Glucose 283 mg/dL; Hemoglobin A1c % 11.5 %
[2020-10-05 13:11] LABS: Alanine Aminotransferase 21 U/L (0-31); Albumin Level 3.3 g/dL (3.5-5.0); Alkaline Phosphatase 133 U/L (39-117); Anion Gap 15 (12-20); Aspartate Amino Transferase 24 U/L (5-31); Bilirubin Total 0.5 mg/dL (0.0-1.0); Blood Urea Nitrogen 17 mg/dL (9-16); C Reactive Protein 3.47 mg/dL (< or = 0.50); Calcium 8.9 mg/dL (8.4-10.2); Carbon Dioxide 21 mmol/L (22-29); Chloride 106 mmol/L (96-108); Cholesterol 296 mg/dL; Estimated Glomerular Filt Rate > 60; Glucose Random 286 mg/dL (60-115); HDL Cholesterol 52 mg/dL; Iron 70 mcg/dL (30-160); LDL Cholesterol Calculated 212 mg/dl; Percent Iron Saturation 21 % (15-50); Potassium 4.3 mmol/L (3.3-5.1); Sodium 138 mmol/L (135-145); Total Iron Binding Capacity 335 mcg/dL (228-428); Total Protein 6.8 g/dL (6.5-8.0); Triglycerides 162 mg/dL; Unsaturated Iron Binding 265 ug/dL
[2020-10-05 13:34] LABS: Ferritin 55 ng/mL (10-250); TSH reflex Free T4 2.91 uIU/mL (0.32-4.0); Vitamin D 25-OH Total 4.8 ng/mL (>30)
[2020-10-05 13:39] LABS: Folate 15.1 ng/mL (> or = 4.0); Vitamin B12 219 pg/mL (200-900)
[2020-10-06 11:21] LABS: Insulin Level Total 23.9 uIU/mL
[2020-10-06 14:11] LABS: Calcium (PTHI) 8.9 mg/dL (8.6-10.2); PTHI 93 pg/mL (14-64)
[2020-10-09 02:42] LABS: Zinc 65 mcg/dL (60-130)
[2020-10-11 01:51] LABS: Vitamin A 38 mcg/dL (38-98)
[2020-10-11 10:47] LABS: Vitamin B1 6 nmol/L (8-30)
== END 2020-10-05 11:46 | disposition home or self-care (01) ==
LOC: HO.LAB 11:45
PROVIDERS: PCP Internal Medicine; Visit Provider Surgery
DX: E11.22 Type 2 diabetes mellitus with diabetic chronic kidney disease (principal); E66.9 Obesity, unspecified; Z68.39 Body mass index [BMI] 39.0-39.9, adult; N17.9 Acute kidney failure, unspecified; E78.5 Hyperlipidemia, unspecified; E11.8 Type 2 diabetes mellitus with unspecified complications; I11.0 Hypertensive heart disease with heart failure; I50.32 Chronic diastolic (congestive) heart failure
CPT/HCPCS: 36415; 71046; 80053; 80061; 82306; 82607; 82728; 82746; 83036; 83525; 83540; 83970; 84425; 84443; 84590; 84630; 85025; 86140; 93005

== ENCOUNTER → 2020-10-24 08:24 | Outpatient (BNVA) | payer OTHER, SELFPAY | PROVIDERS: PCP Internal Medicine; Visit Provider Dietitian, Registered ==

== ENCOUNTER 2020-10-31 08:26 | Outpatient (REF) | payer OTHER, SELFPAY ==
--- NOTE | ~2020-10-31 | FL_ITS ---
EXAMINATION: XR GI SERIES CLINICAL INFORMATION: Obesity. Preoperative. COMPARISON: None TECHNIQUE: Upper GI was performed using thin and thick barium and effervescent granules. FINDINGS: Esophageal motility is normal. There is mild gastroesophageal reflux. No hernia is seen. The stomach and duodenum are normal-appearing. No fold thickening, ulcer, mass, or stricture is seen. FLUOROSCOPY TIME: 0.9 DOSE AREA PRODUCT: 11 Gy-cm2. 23 saved fluoroscopic images. FL/FL upper GI series IMPRESSION: Mild gastroesophageal reflux.
--- NOTE | ~2020-10-31 | US_ITS ---
EXAMINATION: US COMPLETE ABDOMEN WITH LIVER ELASTOGRAPHY CLINICAL INFORMATION: Obesity COMPARISON: None. TECHNIQUE: Real-time imaging of the abdominal viscera. Noninvasive ultrasound liver fibrosis assessment is performed using Isak ElastPQ point quantification shear wave elastography (pSWE) with a C5-2 MHz transducer. Multiple elastography samples are obtained. FINDINGS: PANCREAS: The visualized pancreatic head and body are normal in appearance. The remainder of the pancreas is obscured from visualization by the overlying bowel gas. ABDOMINAL AORTA: The proximal, middle, and distal aortic segments are normal in caliber. INFERIOR VENA CAVA: Visualized portions are normal. LIVER: Liver echotexture is increased probably representing fatty infiltration. The liver is enlarged. The liver is normal in contour. No focal liver lesion or biliary duct dilatation. The right lobe measures 20 cm in length. The left lobe measures 13 cm in length. Portal flow is normal/hepatopedal Shear wave liver elastography median stiffness is 1.4 m/s (reference: normal median stiffness is 1.3 m/s or less). IQR/median stiffness to assess sampling precision is 0.14 (reference: good quality data set is IQR/median stiffness of 0.15 or less). GALLBLADDER: Normal. The gallbladder is physiologically distended without evidence of stones, sludge, polyps, wall thickening or pericholecystic fluid. COMMON BILE DUCT: Normal in caliber measuring 0.14 cm in diameter. RIGHT KIDNEY: Normal. No hydronephrosis. No renal calculi or focal parenchymal lesions. The kidney measures 12.8 cm in maximum dimension. LEFT KIDNEY: Normal. No hydronephrosis. No renal calculi or focal parenchymal lesions. The kidney measures 12.5 cm in maximum dimension. SPLEEN: Normal. The spleen measures 10.8 cm in maximum dimension. FREE FLUID: None. US/US abdomen comp w elastography IMPRESSION: 1. Impression: Echogenic enlarged liver probably representing fatty infiltration. Limited visualization of the tail the pancreas. 2. Liver elastography: Adequate liver sampling. In the absence of other known clinical signs, rules out compensated advanced chronic liver disease. REFERENCE: Society of Radiologists in Ultrasound Liver Stiffness Thresholds (2020): LIVER STIFFNESS THRESHOLDS: *Liver Stiffness equal or less than 1.3 m/s: High probability of being normal. *Liver Stiffness less than 1.7 m/s: In the absence of other known clinical signs, rules out compensated advanced chronic liver disease. *Liver Stiffness 1.7-2.1 m/s: Suggestive of compensated advanced chronic liver disease but need further test for confirmation. *Liver Stiffness over 2.1 m/s: Rules in compensated advanced chronic liver disease. *Liver Stiffness over 2.4 m/s: Suggestive of clinically significant portal hypertension. QUALITY OF DATA SET: *IQR/Median value equal or less than 0.15 implies a quality data set. *IQR/Median value over 0.15 implies a poor quality data set. SIGNIFICANT CHANGE FROM PRIOR EXAM: Significant change if liver stiffness measurement is 10% or greater from prior exam. OTHER CONSIDERATIONS: The stage of liver fibrosis may be overestimated in the setting of acute hepatitis, liver inflammation, elevated liver function tests, hepatic vascular congestion, obstructive cholestasis, non-fasting state, and infiltrative diseases such as amyloidosis and lymphoma. In some patients with NAFLD, the liver stiffness thresholds for compensated advanced chronic liver disease may be lower. In causes other than viral hepatitis and NAFLD, liver stiffness thresholds are not well established.
== END 2020-10-31 08:27 | disposition home or self-care (01) ==
LOC: HO.US 08:26
PROVIDERS: Visit Provider Surgery
DX: Z01.818 Encounter for other preprocedural examination (principal); E66.01 Morbid (severe) obesity due to excess calories; Z68.39 Body mass index [BMI] 39.0-39.9, adult; K21.9 Gastro-esophageal reflux disease without esophagitis; E11.8 Type 2 diabetes mellitus with unspecified complications; N17.9 Acute kidney failure, unspecified
CPT/HCPCS: 74240; 76705; 76981

== ENCOUNTER 2020-11-09 10:07 | Outpatient (REF) | payer OTHER, SELFPAY ==
[2020-11-10 12:22] LABS: H Pylori Breath Test NOT DETECTED (NOT DETECTED)
== END 2020-11-09 10:08 | disposition home or self-care (01) ==
LOC: HO.LNP 10:07
PROVIDERS: PCP Internal Medicine; Visit Provider Surgery
DX: E78.5 Hyperlipidemia, unspecified (principal); I11.0 Hypertensive heart disease with heart failure; I50.32 Chronic diastolic (congestive) heart failure; E11.8 Type 2 diabetes mellitus with unspecified complications; N17.9 Acute kidney failure, unspecified; E66.9 Obesity, unspecified; Z68.39 Body mass index [BMI] 39.0-39.9, adult
CPT/HCPCS: 83013; 99211

== ENCOUNTER → 2020-11-10 07:31 | Outpatient (BNVA) | payer OTHER, SELFPAY | PROVIDERS: PCP Internal Medicine; Visit Provider Surgery | DX: E66.9 Obesity, unspecified (principal); Z68.38 Body mass index [BMI] 38.0-38.9, adult; Z71.3 Dietary counseling and surveillance | CPT/HCPCS: 97802 ==

== ENCOUNTER → 2020-12-22 07:32 | Outpatient (BNVA) | payer OTHER, SELFPAY | PROVIDERS: PCP Internal Medicine; Visit Provider Surgery ==

== ENCOUNTER → 2020-12-26 08:16 | Outpatient (BNVA) | payer OTHER, SELFPAY | PROVIDERS: PCP Internal Medicine; Visit Provider Dietitian, Registered ==

== ENCOUNTER 2020-12-29 12:08 | Outpatient (REF) | payer OTHER, SELFPAY ==
[2020-12-29 12:24] LABS: Estimated Average Glucose 258 mg/dL; Hemoglobin A1c % 10.6 %
== END 2020-12-29 12:09 | disposition home or self-care (01) ==
LOC: HO.HVNA 12:08
PROVIDERS: Visit Provider Surgery
DX: E11.621 Type 2 diabetes mellitus with foot ulcer (principal)
CPT/HCPCS: 36415; 83036

== ENCOUNTER 2021-02-11 12:58 | Inpatient (IN) | payer OTHER, SELFPAY ==
[2021-02-11] VITALS (9 sets, daily range): BP systolic 121–201; BP diastolic 66–81; PULSE 77–88; RESP 16–20; TEMP 36.1–37.1; O2SAT 98–99; BMI 36.7
--- NOTE | ~2021-02-11 | MR_ITS ---
EXAMINATION: MRI OF THE LEFT FOOT WITHOUT AND WITH CONTRAST CLINICAL INFORMATION: Osteomyelitis evaluation. COMPARISON: X-ray of the left foot January 2021. CT scan of the left foot most recent 02/11/2021. Most recent MRI September 2019. TECHNIQUE: MRI of the left foot was performed before and after contrast. 10 mL of Gadavist contrast given intravenously for the contrast portion exam. FINDINGS: Postop changes related to transmetatarsal amputation is seen previously. There is persistent irregularity of the superficial soft tissues over the distal end of the remaining foot as seen previously, compatible with areas of ulceration. Concomitant diffuse abnormal signal in the subcutaneous soft tissues with concomitant enhancement, compatible with cellulitis. I do not see a discrete sinus tract. I do not see a localized well circumscribed fluid collection that would suggest abscess. Additional persistent diffuse abnormal signal with concomitant enhancement in the deeper soft tissues including the soft tissues overlying the distal ends of the bones, compatible with cellulitis and myositis. There is irregularity of the distal end of the medial cuneiform as well depicted on prior CT. There is mild generalized increased T2 signal with concomitant enhancement throughout the remaining bone. Additionally, there is some minimal patchy abnormal signal with concomitant enhancement within the remaining 2nd, 3rd and 4th metatarsal bases. The 5th remaining metatarsal is normal in signal intensity. There is persistent cartilage loss/arthrosis of the navicular medial cuneiform joint as seen previously. Remaining bone and joints are intact. MR/MR foot LT wo/w con IMPRESSION: Postsurgical changes related to amputation at the level of the proximal metatarsals and 1st tarsometatarsal joint. Abnormality of the skin and superficial subcutaneous soft tissues overlying the distal end of the foot, compatible with cellulitis and ulcerations. I do not see a discrete fluid collection/abscess. Irregularity of the end of the medial cuneiform as seen on prior CT most likely reflects postsurgical result. Cannot exclude chronic erosion related to the overlying inflammatory infectious process in the overlying subcutaneous soft tissues. This is also demonstrated on the recent CT but is new compared with the prior MRI September [address] February 2020. There is very mild abnormal signal with concomitant enhancement throughout the medial cuneiform which could be reactive related to the overlying soft tissue abnormalities but could also reflect evolving osteomyelitis.. There is less prominent minimal abnormal signal with enhancement within the 2nd, 3rd and 4th remaining metatarsal bases. These minimal bone findings more likely reflect reactive change/bone contusion/stress reaction. Osteomyelitis cannot be excluded but is less likely in general and also when compared with the findings in the medial cuneiform.
--- NOTE | ~2021-02-11 | CT_ITS ---
EXAMINATION: CT foot LT w con CLINICAL INFORMATION: Reason for Exam foot infection w/ drainage, fluctuance, assess for abscess COMPARISON: None. TECHNIQUE: Multidetector CT imaging of the foot was performed after the administration of 85 mL Omnipaque 350 intravenous contrast. Coronal and sagittal reformats are reviewed. This CT examination was performed using dose optimization techniques as appropriate, variously including the following: *Automated exposure control *Adjustment of mA and/or kV according to patient size (this includes techniques or standardized protocols for targeted exams where dose is matched to indication/reason for exam; i.e. extremities or head) *Use of iterative reconstruction technique DLP: 179 mGy-cm FINDINGS: Status post transmetatarsal amputation. There is a fluid collection inferior to the cuneiforms with surrounding soft tissue stranding subjacent to ulceration along the stump. There is fragmentation of the medial cuneiform with some ill-definition of the plantar cortex which may represent osteomyelitis. CT/CT foot LT w con IMPRESSION: Status post transmetatarsal amputation. There is coalescent density, likely phlegmonous change and possible fluid collection plantar to the osteotomy and cuneiforms likely representing an abscess. There is associated ulcer along the plantar stump. There is indentation of the medial cuneiform with some ill-definition of the cortex and some areas which may represent osteomyelitis.
--- NOTE | ~2021-02-11 | XR_ITS ---
EXAMINATION: XR FOOT, LEFT CLINICAL INFORMATION: History of diabetes and partial amputation. Draining foot wound. COMPARISON: None TECHNIQUE: AP, lateral, and oblique views of the left foot. FINDINGS: There is left mid foot amputation with soft tissue swelling. No bony erosive changes or lucency seen to suspect any osteomyelitis. Ankle mortise and subtalar joints are normal. There is moderate soft tissue edema along the stomach. XR/XR foot LT min 3V IMPRESSION: Moderate soft tissue edema along the stump. No bony erosive changes or lucency seen along the amputated stump to suspect any osteomyelitis.
--- NOTE | ~2021-02-11 | US_ITS ---
EXAMINATION: NONINVASIVE ASSESSMENT OF THE ARTERIES OF BOTH LOWER EXTREMITIES CLINICAL INFORMATION: Nonhealing left leg ulcer. COMPARISON: 07/15/2019. TECHNIQUE: Segmental ankle pulse volume recording, pressure measurement at the ankle and ankle brachial indices were obtained of the lower extremity arterial system bilaterally. In addition, bilateral lower extremity duplex ultrasound was performed with velocity measurements and waveform analysis in the common femoral arteries, profunda femoris arteries, proximal mid and distal superficial femoral arteries, popliteal arteries and tibial vessels. This study was performed at rest only. FINDINGS: a) AT REST: 1. The ankle-brachial indices are: Right 1.08 and left 1.08. >0.97-1.25 = normal - no significant arterial disease. 0.75-0.96 = mild peripheral arterial disease. 0.5-0.74 = moderate peripheral arterial disease. <0.50 = severe peripheral arterial disease. 2. Segmental pressure at ankle: Normal. 3. PVR waveform at ankle: Normal. 4. Duplex exam. Velocities in cm/sec and phasicity as well as the presence of plaque are reported below. RIGHT LEG: Minimal plaque is present and multiphasic flow is noted throughout Common Femoral: 147 Profunda Femoris: 92 Proximal SFA: 82 Mid SFA: 111 Distal SFA: 112 Popliteal: 70 Posterior tibial: 119 LEFT LEG: Minimal plaque is present and multiphasic flow is noted throughout. Common Femoral: 142 Profunda Femoris: 75 Proximal SFA: 112 Mid SFA: 95 Distal SFA: 98 Popliteal: 112 Posterior tibial: 112 Peroneal: 66 US/US POLLY complete IMPRESSION: No evidence of significant macroscopic peripheral vascular disease. Probable small vessel disease.
--- NOTE | ~2021-02-11 | US_ITS ---
EXAMINATION: NONINVASIVE ASSESSMENT OF THE ARTERIES OF BOTH LOWER EXTREMITIES CLINICAL INFORMATION: Nonhealing left leg ulcer. COMPARISON: 07/15/2019. TECHNIQUE: Segmental ankle pulse volume recording, pressure measurement at the ankle and ankle brachial indices were obtained of the lower extremity arterial system bilaterally. In addition, bilateral lower extremity duplex ultrasound was performed with velocity measurements and waveform analysis in the common femoral arteries, profunda femoris arteries, proximal mid and distal superficial femoral arteries, popliteal arteries and tibial vessels. This study was performed at rest only. FINDINGS: a) AT REST: 1. The ankle-brachial indices are: Right 1.08 and left 1.08. >0.97-1.25 = normal - no significant arterial disease. 0.75-0.96 = mild peripheral arterial disease. 0.5-0.74 = moderate peripheral arterial disease. <0.50 = severe peripheral arterial disease. 2. Segmental pressure at ankle: Normal. 3. PVR waveform at ankle: Normal. 4. Duplex exam. Velocities in cm/sec and phasicity as well as the presence of plaque are reported below. RIGHT LEG: Minimal plaque is present and multiphasic flow is noted throughout Common Femoral: 147 Profunda Femoris: 92 Proximal SFA: 82 Mid SFA: 111 Distal SFA: 112 Popliteal: 70 Posterior tibial: 119 LEFT LEG: Minimal plaque is present and multiphasic flow is noted throughout. Common Femoral: 142 Profunda Femoris: 75 Proximal SFA: 112 Mid SFA: 95 Distal SFA: 98 Popliteal: 112 Posterior tibial: 112 Peroneal: 66 US/US arterial duplex LE BI IMPRESSION: No evidence of significant macroscopic peripheral vascular disease. Probable small vessel disease.
--- NOTE | 2021-02-11 13:16 | ED_ITS ---
HPI - Wound/Laceration General Chief Complaint: Wound/Laceration Stated Complaint: ?inf wound Time Seen by Provider: 02/11/21 13:13 Source: patient Mode of arrival: ambulatory Limitations: no limitations History of Present Illness HPI narrative: 50-year-old female with a history of HTN, HLD, IDDM with multiple complications including ongoing left foot wound s/p TMA, history of chronic osteomyelitis & septic tenosynovitis with VRE 6 weeks of IV Zyvox in 2019, history who presents to the ER for left food wound evaluation per recs of her visiting nurse. She has been going to the wound clinic once per week however missed this last week because she had a migraine. When the nurse went to change her dressing today she noticed the blackened area was increasing and there was a new foul smelling drainage. Patient cannot see the wound herself so she does not know if it looks much different. She has had no fever, chills, N/V/D or body aches. She reports increased pain in the foot yesterday but it improved today. Due to her neuropathy she does not have much sensation in her feet. Onset (ago): day(s) Extremity Location: left: foot Place: home Patient tetanus UTD: Yes Context: other (chronic non-healing wound) Associated symptoms: pain, loss of feeling/numbness and other (drainage) Treatments prior to arrival: bandage Related Data Home Medications Medication Instructions Recorded Confirmed Lantus U-100 Insulin 50 units BEDTIME 03/19/20 10/03/20 amlodipine 10 mg tablet 1 tab PO DAILY 03/19/20 10/03/20 atorvastatin 80 mg tablet 1 tab PO BEDTIME 03/19/20 10/03/20 gabapentin 300 mg capsule 1 cap PO TID 03/19/20 10/03/20 insulin aspart U-100 100 unit/mL 20 unit SUBCUT TIDAC 03/19/20 09/06/20 subcutaneous solution (Novolog U-100 Insulin aspart) Plavix 75 mg PO DAILY cap 09/06/20 10/03/20 Previous Rx's Medication Instructions Recorded cholecalciferol (vitamin D3) 125 125 mcg PO BID #60 cap 10/30/20 mcg (5,000 unit) capsule mecobalamin (vitamin B12) 1,000 1,000 mcg SUBLINGUAL DAILY #30 tab 10/30/20 mcg disintegrating tablet,sublingual thiamine HCl (vitamin B1) 100 mg 100 mg PO DAILY #30 tab 10/30/20 tablet Allergies Allergy/AdvReac Type Severity Reaction Status Date / Time No Known Allergies Allergy Verified 10/03/20 12:00 [No Known Allergies*] Review of Systems Review of Systems: Constitutional: No Fever, No Chills ENT/Mouth: No sore throat, No Rhinorrhea, No Swallowing Difficulty Cardiovascular: No Chest Pain, No SOB, No edema Respiratory: No Cough, No Sputum, No Wheezing, No dyspnea Gastrointestinal: No Nausea, No Vomiting, No Diarrhea, No abdominal Pain Genitourinary: No Dysuria, No Urinary Frequency, No Hematuria Musculoskeletal: + joint pain, No Myalgias Skin: + Skin Lesions, No rash Neuro: No Weakness, + Numbness, No Dizziness, + Headache Psych: No Anxiety/Panic, No Depression Heme/Lymph: No Bruising, No Lymphadenopathy Endocrine: No Polyuria, No Polydipsia PMFSH Past Medical History Medical History (Updated 02/11/21 @ 16:52 by ARNULFO Malik) Amputated toe of left foot Amputation of left foot BMI 39.0-39.9,adult Chronic heart failure with preserved ejection fraction (HFpEF) Chronic osteomyelitis of foot Diabetes High cholesterol Hyperlipidemia Hypertension Insulin dependent diabetes mellitus Neuropathy Obesity Osteomyelitis Uncontrolled diabetes mellitus Vitamin B12 deficiency VRE (vancomycin resistant enterococcus) culture positive Surgical History (Updated 10/03/20 @ 12:10 by Ky Meza MD) H/O spinal fusion History of section History of tubal ligation Family History Family History Mother Diabetes Hypertension Disk prolapse Father Diabetes Hypertension Sister No problems noted. Brother No problems noted. Daughter No problems noted. Son No problems noted. Social History Social History Household Members: Spouse Household Members Other:: Housing: Apartment Do you presently have visiting nurse or other home services: Yes ([facility]) Alcohol intake: never Patient Tobacco Use Status: Never used Tobacco Advance Directives: No service: No Current occupational status: unemployed Physical Exam Vital Signs: Vital Signs: Last Vital Signs Temp 98.7 F 02/11/21 12:59 Pulse 88 02/11/21 12:59 Resp 16 02/11/21 12:59 BP 121/66 02/11/21 12:59 Pulse Ox 98 02/11/21 12:59 Body Mass Index 36.7 Appearance: Alert. Oriented X3. No acute distress. Eyes: Pupils equal, round and reactive to light. ENT: Pharynx normal. Neck: Normal inspection. Neck supple. CVS: Normal heart rate and rhythm. Pulses normal. Respiratory: No respiratory distress. Breath sounds normal. Abdomen: Soft and nontender. +BS x4 Skin: Skin warm and dry. Normal skin color. Normal skin turgor. No rashes. Extremities: left lower extremity warm and well perfused, s/p left TMA with large chronic appearing wound with eschar. superior aspect with bogginess. no appreciated drainage. see photo below. Neuro: Oriented X 3. No motor deficit. + sensory deficit of bilateral plantar feet. Course Course Course Narrative: 50-year-old female with a history of insulin-dependent diabetes, status post transmetatarsal amputation of the left foot with ongoing chronic foot wound, monitored by the wound care clinic who is coming in with worsening eschar to the area and new drainage. She denies any signs or symptoms systemic infection. She is afebrile on arrival with normal vital signs. Reevaluation(s) Reevaluation #1: X-ray was unremarkable. She has a mild leukocytosis and elevated lactic acid of 3.2. Given the bogginess and some of fluctuance on exam will plan to get CT of the foot with contrast for further evaluation of possible underlying abscess. Reevaluation #2: CT scan showing: Status post transmetatarsal amputation. There is coalescent density, likely phlegmonous change and possible fluid collection plantar to the osteotomy and cuneiforms likely representing an abscess. There is associated ulcer along the plantar stump. There is indentation of the medial cuneiform with some ill-definition of the cortex and some areas which may represent osteomyelitis.? - She has a history of VRE - Dr. Graves consulted for recs on use of Vyvox. Recommended starting Zyvox now, with plan to get MRI in the morning for evaluation of possible area of osteomyelitis. Hold off on additional antibiotics for now per ID recommendations. Will plan to admit the patient for further management. Patient updated on plan of care and is agreeable. Consultations Consultation #1: ID - Dr. Graves MDM - Wound/Laceration Lab Data Result diagrams: 02/11/21 13:49 02/11/21 13:49 Labs: Lab Results 02/11/21 02/11/21 02/11/21 Range/Units 13:49 13:49 14:06 WBC 12.9 H (4.8-10.8) X10*3/uL RBC 4.56 (4.20-5.50) X10*6/uL Hgb 12.4 (12.0-16.0) g/dl Hct 37.3 (37-47) % MCV 81.8 (80-98) fL MCH 27.2 (27.0-33.0) pg MCHC 33.2 (31.0-35.0) g/dl RDW 13.4 (11.0-16.0) % Plt Count 259 D (160-400) X10*3/uL MPV 11.1 (9.4-12.3) fL Immature Gran % (Auto) 0.4 (0.0-0.4) % Neut % (Auto) 62.6 (45-73) % Lymph % (Auto) 24.4 (20-40) % [place] % (Auto) 8.6 (2-11) % Eos % (Auto) 3.1 (0-4) % Baso % (Auto) 0.9 (0-2) % Lymph # (Auto) 3.2 (1.2-4.9) X10*3/uL [place] # (Auto) 1.1 (0.1-1.2) X10*3/uL Eos # (Auto) 0.4 (0.0-0.4) X10*3/uL Baso # (Auto) 0.1 (0.0-0.2) X10*3/uL Abs Immat Gran (auto) 0.05 H (0.00-0.03) X10*3/uL Absolute Neuts (auto) 8.1 (2.0-8.3) X10*3/uL Absolute Nucleated RBC 0.000 (0.0-0.012) X10*3/uL Nucleated RBC % (auto) 0.0 (0.0-0.2) /100WBC ESR (0-20) MM/HR PT 11.8 (9.9-13.0) SEC INR 1.0 (0.9-1.1) APTT 25.9 (24.1-38.0) SEC Sodium 135 (135-145) mmol/L Potassium 3.8 (3.3-5.1) mmol/L Chloride 101 (96-108) mmol/L Carbon Dioxide 21 L (22-29) mmol/L Anion Gap 17 (12-20) BUN 21 H (9-16) mg/dL Creatinine 1.15 (0.5-1.4) mg/dL Estim Creat Clear Calc 62.1 Estimated GFR 50 Random Glucose 365 H* (60-115) mg/dL Lactic Acid (0.5-2.0) mmol/L Calcium 8.5 (8.4-10.2) mg/dL Magnesium 1.6 (1.6-2.6) mg/dL Total Bilirubin 0.3 (0.0-1.0) mg/dL Direct Bilirubin < 0.2 (0.0-0.5) mg/dL AST 28 (5-31) U/L ALT 22 (0-31) U/L Alkaline Phosphatase 131 H (39-117) U/L C-Reactive Protein 4.19 H (< or = 0.50) mg/dL Total Protein 6.3 L (6.5-8.0) g/dL Albumin 3.2 L (3.5-5.0) g/dL 02/11/21 02/11/21 Range/Units 14:07 14:07 WBC (4.8-10.8) X10*3/uL RBC (4.20-5.50) X10*6/uL Hgb (12.0-16.0) g/dl Hct (37-47) % MCV (80-98) fL MCH (27.0-33.0) pg MCHC (31.0-35.0) g/dl RDW (11.0-16.0) % Plt Count (160-400) X10*3/uL MPV (9.4-12.3) fL Immature Gran % (Auto) (0.0-0.4) % Neut % (Auto) (45-73) % Lymph % (Auto) (20-40) % [place] % (Auto) (2-11) % Eos % (Auto) (0-4) % Baso % (Auto) (0-2) % Lymph # (Auto) (1.2-4.9) X10*3/uL [place] # (Auto) (0.1-1.2) X10*3/uL Eos # (Auto) (0.0-0.4) X10*3/uL Baso # (Auto) (0.0-0.2) X10*3/uL Abs Immat Gran (auto) (0.00-0.03) X10*3/uL Absolute Neuts (auto) (2.0-8.3) X10*3/uL Absolute Nucleated RBC (0.0-0.012) X10*3/uL Nucleated RBC % (auto) (0.0-0.2) /100WBC ESR 63 H (0-20) MM/HR PT (9.9-13.0) SEC INR (0.9-1.1) APTT (24.1-38.0) SEC Sodium (135-145) mmol/L Potassium (3.3-5.1) mmol/L Chloride (96-108) mmol/L Carbon Dioxide (22-29) mmol/L Anion Gap (12-20) BUN (9-16) mg/dL Creatinine (0.5-1.4) mg/dL Estim Creat Clear Calc Estimated GFR Random Glucose (60-115) mg/dL Lactic Acid 3.2 H* (0.5-2.0) mmol/L Calcium (8.4-10.2) mg/dL Magnesium (1.6-2.6) mg/dL Total Bilirubin (0.0-1.0) mg/dL Direct Bilirubin (0.0-0.5) mg/dL AST (5-31) U/L ALT (0-31) U/L Alkaline Phosphatase (39-117) U/L C-Reactive Protein (< or = 0.50) mg/dL Total Protein (6.5-8.0) g/dL Albumin (3.5-5.0) g/dL Critical Care Time Critical Care Time Critical Care Time: Yes Total Critical Care Time: 36 Attestation: I have personally provided critical care time exclusive of time spent on separately billable procedures. Time includes review of lab data, radiology results, discussion with consultants, and monitoring for potential decompensation. Intervention performed as documented. Discharge Plan Discharge Clinical Impression: Abscess, Uncontrolled diabetes mellitus, Diabetic foot infection Patient Disposition: Admitted As Inpatient Prescriptions: No Action mecobalamin (vitamin B12) 1,000 mcg tablet,disintegrating 1,000 mcg sublingual DAILY Qty: 30 RF: 2 cholecalciferol (vitamin D3) 125 mcg (5,000 unit) capsule 125 mcg PO BID Qty: 60 RF: 2 thiamine HCl (vitamin B1) 100 mg tablet 100 mg PO DAILY Qty: 30 RF: 2 Lantus U-100 Insulin 50 units BEDTIME RF: 0 insulin aspart U-100 [Novolog U-100 Insulin aspart] 100 unit/mL solution 20 unit subcut TIDAC RF: 0 atorvastatin 80 mg tablet 1 tab PO BEDTIME RF: 0 gabapentin 300 mg capsule 1 cap PO TID RF: 0 amlodipine 10 mg tablet 1 tab PO DAILY RF: 0 Plavix 75 mg PO DAILY RF: 0
[2021-02-11 13:54] LABS: MANUAL DIFF FLAG NO
[2021-02-11 13:55] LABS: Basophils Absolute Auto 0.1 X10*3/uL (0.0-0.2); Basophils Percent Auto 0.9 % (0-2); Eosinophils Absolute Auto 0.4 X10*3/uL (0.0-0.4); Eosinophils Percent Auto 3.1 % (0-4); Hematocrit 37.3 % (37-47); Hemoglobin 12.4 g/dl (12.0-16.0); Imm Gran Abs Auto 0.05 X10*3/uL (0.00-0.03); Imm Gran Pct Auto 0.4 % (0.0-0.4); Lymphocytes Absolute Auto 3.2 X10*3/uL (1.2-4.9); Lymphocytes Percent Auto 24.4 % (20-40); Mean Corpuscular HGB Conc 33.2 g/dl (31.0-35.0); Mean Corpuscular Hemoglobin 27.2 pg (27.0-33.0); Mean Corpuscular Volume 81.8 fL (80-98); Mean Platelet Volume 11.1 fL (9.4-12.3); Monocytes Absolute Auto 1.1 X10*3/uL (0.1-1.2); Monocytes Percent Auto 8.6 % (2-11); Neutrophils Absolute Auto 8.1 X10*3/uL (2.0-8.3); Neutrophils Percent Auto 62.6 % (45-73); Platelet Count 259 X10*3/uL (160-400); Red Blood Count 4.56 X10*6/uL (4.20-5.50); Red Cell Distribution Width 13.4 % (11.0-16.0); White Blood Count 12.9 X10*3/uL (4.8-10.8)
[2021-02-11 14:18] LABS: Prothrombin Time 11.8 SEC (9.9-13.0)
[2021-02-11 14:21] LABS: Partial Thromboplastin Time 25.9 SEC (24.1-38.0)
[2021-02-11 14:28] LABS: Alanine Aminotransferase 22 U/L (0-31); Albumin Level 3.2 g/dL (3.5-5.0); Alkaline Phosphatase 131 U/L (39-117); Anion Gap 17 (12-20); Aspartate Amino Transferase 28 U/L (5-31); Bilirubin Direct < 0.2 mg/dL (0.0-0.5); Bilirubin Total 0.3 mg/dL (0.0-1.0); Blood Urea Nitrogen 21 mg/dL (9-16); C Reactive Protein 4.19 mg/dL (< or = 0.50); Calcium 8.5 mg/dL (8.4-10.2); Carbon Dioxide 21 mmol/L (22-29); Chloride 101 mmol/L (96-108); Creatinine Clr Calc Pharmacy 62.1; Estimated Glomerular Filt Rate 50; Glucose Random 365 mg/dL (60-115); Magnesium 1.6 mg/dL (1.6-2.6); Potassium 3.8 mmol/L (3.3-5.1); Sodium 135 mmol/L (135-145); Total Protein 6.3 g/dL (6.5-8.0)
[2021-02-11 14:29] LABS: Lactic Acid 3.2 mmol/L (0.5-2.0)
[2021-02-11] MEDS: 0.9 % Sodium Chloride 1,000 ML 999 ML IVCONT ×2 (14:40→16:08)
[2021-02-11] MEDS: Insulin Lispro 100 UNIT/ML 3 ML VIAL 10 UNIT SUBCUT (14:41)
[2021-02-11 14:54] LABS: Erythrocyte Sedimentation Rate 63 MM/HR (0-20)
[2021-02-11] MEDS: iohexoL 350 MG/ML 100 ML INFUS..BTL IV (15:31)
[2021-02-11 16:10] LABS: Reflex Lactate? Lactic Acid Added
--- NOTE | 2021-02-11 16:53 | PM.IMHP ---
History of Present Illness Date of Service: 02/11/21 Chief Complaint: foot infection History taken in Kyr[place] from this patient. 50yo F with uncontrolled DM2 [A1c 10.6 12/29/20], history of L TMA with nonhealing wound. 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 [id number] amputation was recommended then but she refused. She was treated with oral linezolid and amoxicillin-clavulanate for 4 weeks; she had previously developed vancomycin-induced ATN. She presents today with worsening blackening of the eschar at the site of the ulcer on the L TMA stump noted by her VNA. Foul-smelling drainage was also noted. She is followed by [facility]. No fever, chills, myalgias, nausea, or vomiting. She has dense neuropathy and no pain at the wound. She had leukocytosis without other SIRS criteria. Lactate was elevated, however. CT scan showed abscess below the osteoetomy and cuneiform and some areas that appeared to be osteomyelitis. She was started on linezolid. She also got 10 units of IV insulin for BG 367. Review of Systems Review of Systems: Yes all other systems are reviewed and are negative [facility] Medical History Amputated toe of left foot Amputation of left foot BMI 39.0-39.9,adult Chronic heart failure with preserved ejection fraction (HFpEF) Chronic osteomyelitis of foot Diabetes High cholesterol Hyperlipidemia Hypertension Insulin dependent diabetes mellitus Neuropathy Obesity Osteomyelitis Uncontrolled diabetes mellitus Vitamin B12 deficiency VRE (vancomycin resistant enterococcus) culture positive Family History Mother Diabetes Hypertension Disk prolapse Father Diabetes Hypertension Sister No problems noted. Brother No problems noted. Daughter No problems noted. Son No problems noted. Pertinent family history: as above Surgical History H/O spinal fusion History of section History of tubal ligation Social History Household Members: Spouse Household Members Other:: Housing: Apartment Do you presently have visiting nurse or other home services: Yes ([facility]) Alcohol intake: never Patient Tobacco Use Status: Never used Tobacco Advance Directives: No service: No Current occupational status: unemployed Meds Allergies Allergy/AdvReac Type Severity Reaction Status Date / Time No Known Allergies Allergy Verified 10/03/20 12:00 [No Known Allergies*] Active Medications: Current Medications Linezolid (Zyvox/D5w) 600 mg in 300 mls @ 300 mls/hr IV ONCE ONE Stop: 02/11/21 17:35 Home Medications Medication Instructions Recorded Confirmed Last Taken Type Lantus U-100 Insulin 50 units BEDTIME 03/19/20 10/03/20 03/17/20 00:58 History amlodipine 10 mg tablet 1 tab PO DAILY 03/19/20 10/03/20 03/18/20 History atorvastatin 80 mg tablet 1 tab PO BEDTIME 03/19/20 10/03/20 03/17/20 History gabapentin 300 mg capsule 1 cap PO TID 03/19/20 10/03/20 03/18/20 History insulin aspart U-100 100 unit/mL 20 unit SUBCUT TIDAC 03/19/20 09/06/20 03/19/20 History subcutaneous solution (Novolog U-100 Insulin aspart) Plavix 75 mg PO DAILY cap 09/06/20 10/03/20 Unknown History Physical Exam Vital Signs and Narrative: Vital Signs: Last Vital Signs Temp 98.7 F 02/11/21 12:59 Pulse 88 02/11/21 12:59 Resp 16 02/11/21 12:59 BP 121/66 02/11/21 12:59 Pulse Ox 98 02/11/21 12:59 Body Mass Index 36.7 Gen: in no acute distress HEENT: sclera anicteric, moist mucus membranes Neck: supple Lungs: clear to auscultation bilaterally Heart: regular rate and rhythm, no murmurs Abd: soft, non-tender, non-distended Ext: no edema, L TMTA stump with ulcer with eschar without drainage Skin: warm/well-perfused Neuro: alert and oriented x3, no focal findings Psych: appropriate affect Results Labs CBC and Chem 7: 02/11/21 13:49 02/11/21 13:49 Labs: Laboratory Results - last 24 hr 02/11/21 02/11/21 02/11/21 13:49 13:49 14:06 MCV 81.8 MCH 27.2 MCHC 33.2 RDW 13.4 Plt Count 259 D MPV 11.1 Immature Gran % (Auto) 0.4 Neut % (Auto) 62.6 Lymph % (Auto) 24.4 [place] % (Auto) 8.6 Eos % (Auto) 3.1 Baso % (Auto) 0.9 Lymph # (Auto) 3.2 [place] # (Auto) 1.1 Eos # (Auto) 0.4 Baso # (Auto) 0.1 Abs Immat Gran (auto) 0.05 H Absolute Neuts (auto) 8.1 Absolute Nucleated RBC 0.000 Nucleated RBC % (auto) 0.0 ESR PT 11.8 INR 1.0 APTT 25.9 Anion Gap 17 Estim Creat Clear Calc 62.1 Estimated GFR 50 Random Glucose 365 H* Lactic Acid Calcium 8.5 Magnesium 1.6 Total Bilirubin 0.3 Direct Bilirubin < 0.2 AST 28 ALT 22 Alkaline Phosphatase 131 H C-Reactive Protein 4.19 H Total Protein 6.3 L Albumin 3.2 L 02/11/21 02/11/21 14:07 14:07 MCV MCH MCHC RDW Plt Count MPV Immature Gran % (Auto) Neut % (Auto) Lymph % (Auto) [place] % (Auto) Eos % (Auto) Baso % (Auto) Lymph # (Auto) [place] # (Auto) Eos # (Auto) Baso # (Auto) Abs Immat Gran (auto) Absolute Neuts (auto) Absolute Nucleated RBC Nucleated RBC % (auto) ESR 63 H PT INR APTT Anion Gap Estim Creat Clear Calc Estimated GFR Random Glucose Lactic Acid 3.2 H* Calcium Magnesium Total Bilirubin Direct Bilirubin AST ALT Alkaline Phosphatase C-Reactive Protein Total Protein Albumin ITS Impressions Foot X-Ray 02/11/21 13:14 IMPRESSION: Moderate soft tissue edema along the stump. No bony erosive changes or lucency seen along the amputated stump to suspect any osteomyelitis. Foot CT 02/11/21 14:48 IMPRESSION: Status post transmetatarsal amputation. There is coalescent density, likely phlegmonous change and possible fluid collection plantar to the osteotomy and cuneiforms likely representing an abscess. There is associated ulcer along the plantar stump. There is indentation of the medial cuneiform with some ill-definition of the cortex and some areas which may represent osteomyelitis. Imaging Radiologist's Impressions: Impressions Foot X-Ray 02/11/21 13:14 IMPRESSION: Moderate soft tissue edema along the stump. No bony erosive changes or lucency seen along the amputated stump to suspect any osteomyelitis. Foot CT 02/11/21 14:48 IMPRESSION: Status post transmetatarsal amputation. There is coalescent density, likely phlegmonous change and possible fluid collection plantar to the osteotomy and cuneiforms likely representing an abscess. There is associated ulcer along the plantar stump. There is indentation of the medial cuneiform with some ill-definition of the cortex and some areas which may represent osteomyelitis. Assessment and Plan (1) Diabetic foot infection: Status: Acute 49yo F with uncontrolled DM2 admitted for nonhealing L TMA stump with hx of VRE osteomyelitis presenting with abscess/osteomyelitis at the stump site. # DM foot infection/abscess/osteomyelitis - MRI tomorrow, ID consult, Vascular Surgery consult - continue linezolid - follow BCx # HTN - amlodipine # HLD - atorvastatin # chronic HFpEF - appears euvolemic # uncontroled DM2 - basal/bolus insulin # DM neuropathy - gabapentin # uncontrolled DM2, A1c 12.4 - increased Lantus + Humalog, discussed importance of adherence/diet # VTE ppx - LMWH # code - FULL Quality Stroke Does the patient have a stroke diagnosis?: No VTE Prior VTE?: No VTE Risk Level:: Medical - moderate - high VTE Device Contraindication: N/A - Device Ordered VTE Drug Contraindication: N/A - Med Ordered
[2021-02-11 17:28] LABS: ~Lactic Acid-LAB USE ONLY 2.6 mmol/L (0.5-2.0)
--- NOTE | 2021-02-11 18:14 | PC.NURSE ---
delay in occupational medicine officer of abx d/t med not being loaded into ED pyxis, awaiting pharmacy to bring med to the ED for administration. PA aware jenniferm
[2021-02-11] MEDS: Linezolid/D5W 600 MG/300 ML PIGGYBACK 300 MG IV (18:30)
[2021-02-11 19:03] LABS: Reflex Lactate? 2 Y
[2021-02-11 20:30] LABS: ~Lactic Acid-LAB USE ONLY 2.4 mmol/L (0.5-2.0)
[2021-02-11 20:52] LABS: COVID-19 Test Negative (Negative); IDNOW Serial# 9DD0AD1C
[2021-02-11 21:51] LABS: Glucose, Whole Blood 178 mg/dL (60-115)
[2021-02-11] MEDS: Insulin Lispro 100 UNIT/ML 3 ML VIAL SUBCUT (21:59)
[2021-02-11] MEDS: Enoxaparin Sodium 40 MG/0.4 ML SYRINGE SUBCUT (21:59)
--- NOTE | 2021-02-11 22:33 | PC.NURSE ---
P BP elevated 201/79 pulse 78 ,patient c/o left sided headache,left foot pain,no pain meds available I Dr. Elizabeth notified E awaiting new orders
[2021-02-11] MEDS: oxyCODONE HCl Immed Release 5 MG TABLET PO (22:48)
[2021-02-11] MEDS: hydrALAZINE HCl 20 MG/ML VIAL 5 MG IVPUSH (22:49)
[2021-02-11] MEDS: 0.9 % Sodium Chloride Flush 3 ML SYRINGE IVFLUSH (23:34)
[2021-02-12 05:18] LABS: Appearance Urine HAZY; Color Urine YELLOW; Glucose Urine UA 250 MG/DL (NEG); Leukocyte Esterase Urine 1+ (NEG); Nitrite Urine POS (NEG); UACC Culture Trigger YES; Urine Blood TRACE (NEG); Urine Ketones NEG (NEG); Urine Protein 3+ MG/DL (NEG-TRACE)
[2021-02-12 05:30] LABS: Bacteria Urine 4+ /LPF; RBC Urine 0-2 /HPF (0); Squamous Epithelial Cell Urine 2+ /LPF; WBC Clumps Urine NOTED
[2021-02-12] MEDS: Linezolid/D5W 600 MG/300 ML PIGGYBACK 300 MG IV ×2 (06:08→17:08)
[2021-02-12 06:26] LABS: Hematocrit 37.5 % (37-47); Hemoglobin 12.5 g/dl (12.0-16.0); Mean Corpuscular HGB Conc 33.3 g/dl (31.0-35.0); Mean Corpuscular Hemoglobin 27.2 pg (27.0-33.0); Mean Corpuscular Volume 81.7 fL (80-98); Mean Platelet Volume 10.5 fL (9.4-12.3); Platelet Count 327 X10*3/uL (160-400); Red Blood Count 4.59 X10*6/uL (4.20-5.50); Red Cell Distribution Width 13.3 % (11.0-16.0); White Blood Count 11.7 X10*3/uL (4.8-10.8)
[2021-02-12 06:41] LABS: Anion Gap 12 (12-20); Blood Urea Nitrogen 12 mg/dL (9-16); Calcium 8.4 mg/dL (8.4-10.2); Carbon Dioxide 24 mmol/L (22-29); Chloride 105 mmol/L (96-108); Creatinine Clr Calc Pharmacy 92.8; Estimated Glomerular Filt Rate > 60; Glucose Random 181 mg/dL (60-115); Potassium 3.7 mmol/L (3.3-5.1); Sodium 137 mmol/L (135-145)
[2021-02-12 07:56] VITALS: BP 180/88; PULSE 73; RESP 18; TEMP 36.9; O2SAT 98
[2021-02-12] MEDS: oxyCODONE HCl Immed Release 5 MG TABLET PO (08:07)
[2021-02-12] MEDS: Insulin Lispro 100 UNIT/ML 3 ML VIAL SUBCUT ×4 (08:07→21:03)
[2021-02-12] MEDS: Acetaminophen 325 MG TABLET 650 MG PO ×2 (08:08→15:24)
[2021-02-12] MEDS: 0.9 % Sodium Chloride Flush 3 ML SYRINGE IVFLUSH ×3 (08:09→21:04)
[2021-02-12 08:11] LABS: Glucose, Whole Blood 188 mg/dL (60-115)
[2021-02-12] MEDS: amLODIPine Besylate 10 MG TABLET PO (09:09)
[2021-02-12] MEDS: Clopidogrel Bisulfate 75 MG TABLET PO (09:09)
[2021-02-12] MEDS: Gabapentin 300 MG CAPSULE PO ×3 (09:09→21:03)
[2021-02-12] MEDS: cefTRIAXone sodium 1 GM in 0.9 % Sodium Chloride 50 ML IV (09:09)
[2021-02-12] MEDS: Thiamine HCL 100 MG TABLET PO (09:09)
--- NOTE | 2021-02-12 09:50 | MHC.CM.PN ---
EMR REVIEWED, PT ADMITTED FOR DM FOOT ABCESS,OSTEOMYELITIS, PT REPORTS SHE LIVES W/, PT PRIMARILY INDEPENDENT HOWEVER DOES NEED SOME ASSISTANCE D/T DM WOUND, PT HAS A SHOWER CHAIR AND WHEELED WALKER SHE DOES NOT USE, PT REPORTS SHE HAS [facility] FOR WOUND CARE, [facility] AND [employer] HRS THROUGH [employer]. PT VERIFIES PCP MAGNO LANCASTER. PT PROVIDED EDUCATION ON HCP AND WILL COMPLETE W/CM PRIOR TO D/C. D/C PLAN: HOME W/RESUMP OF SERVICES VS STR, TBD
--- NOTE | 2021-02-12 10:23 | MHC.CM.PN ---
PT COMPLETED HCP W/CM, PT GIVEN EDUCATIONAL INFO, ORIGINAL AND TWO COPIES, COPY UPLOADED TO [employer] AND PLACED IN CHART W/PT PERMISSION. HEALTH CARE AGENT: VINCENT FINNEY (DTR) [phone] ALTERNATE: FAHAD REINA (SISTER) [phone]
--- NOTE | 2021-02-12 10:25 | PC.NURSE ---
Skin/wound assessment completed. Patient has a non healing diabetic ulcer on Left TMA. Dr. Peguero removed some eschar, wound bed is red boggy with some yellow, scant purulent drainage but there is malodorous smell. Cultures were taken and sent to mal. This nurse applied silver alginate to wound bed, covered with non woven gauze and roll gauze. Will continue to follow progress.
--- NOTE | 2021-02-12 11:33 | PM.CNGS ---
History of Present Illness Consult details Consult date: 02/12/21 Narrative: Complex 50-year-old female well known to [facility] status post transmetatarsal amputation presents for hospital follow-up for nonhealing left foot ulcer. It has been a source of discomfort for her. There was concern of underlying osteomyelitis and infection. She now presents to us for vascular evaluation. Review of Systems Review of Systems: Yes all other systems are reviewed and are negative Constitutional: Constitutional: Reports no additional constitutional complaints ENT: Reports Normal hearing present Cardiovascular: Cardiovascular: Denies chest pain, Denies chest pain at rest, Denies chest pain with activity and Denies pedal edema Respiratory: Respiratory: Denies cough Gastrointestinal: Gastrointestinal: Denies abdominal pain Musculoskeletal: Musculoskeletal: Denies abnormal gait, Denies muscle cramps and Denies radiating pain into limb Integumentary/Breasts: Skin/Breast: Denies skin ulcer and Denies wounds Neurologic: Reports Normal hearing present and Denies abnormal gait Psychiatric: Psychiatric: Reports no additional psychiatric complaints PMFSH Past Medical History Medical History Amputated toe of left foot Amputation of left foot BMI 39.0-39.9,adult Chronic heart failure with preserved ejection fraction (HFpEF) Chronic osteomyelitis of foot Diabetes High cholesterol Hyperlipidemia Hypertension Insulin dependent diabetes mellitus Neuropathy Obesity Osteomyelitis Uncontrolled diabetes mellitus Vitamin B12 deficiency VRE (vancomycin resistant enterococcus) culture positive Family History Family History Mother Diabetes Hypertension Disk prolapse Father Diabetes Hypertension Sister No problems noted. Brother No problems noted. Daughter No problems noted. Son No problems noted. Surgical History Surgical History H/O spinal fusion History of section History of tubal ligation Social History Social History Household Members: Spouse Household Members Other:: Housing: Apartment Do you presently have visiting nurse or other home services: Yes Alcohol intake: never Patient Tobacco Use Status: Never used Tobacco Use of substances other than those prescribed or required for medical reasons: No Currently Displaying Signs/Symptoms of Drug Intoxication Withdrawal: No Have you been hit, kicked, punched, or otherwise hurt by someone within the past year? If so, by whom?: No Do you feel safe in your current relationship?: Yes Is there a partner from a previous relationship who is making you feel unsafe now?: No Are you made to feel afraid or neglected: No Spiritual Healthcare Practices: Pentacostal Advance Directives: No Do you have thoughts of harming others: None Do you have a plan to hurt others: No Plan Recently lost weight without trying: No Nutrition Risks: No Nutritional Risk Patient : No : No Poor oral hygiene: No service: No Current occupational status: unemployed Meds Allergies Allergy/AdvReac Type Severity Reaction Status Date / Time No Known Allergies Allergy Verified 10/03/20 12:00 [No Known Allergies*] Active Medications: Current Medications Acetaminophen (Acetaminophen 325 Mg Tablet) 650 mg PO Q6H PRN PRN Reason: Pain, Mild (Pain Scale 1-3) Last Admin: 02/12/21 08:08 Dose: 650 mg Documented by: Amlodipine Besylate (Amlodipine Besylate 10 Mg Tablet) 10 mg PO DAILY [facility]; Protocol Last Admin: 02/12/21 09:09 Dose: 10 mg Documented by: Atorvastatin Calcium (Atorvastatin Calcium 80 Mg Tablet) 80 mg PO BEDTIME ANGÉLICA Clopidogrel Bisulfate (Clopidogrel Bisulfate 75 Mg Tablet) 75 mg PO DAILY [facility] Last Admin: 02/12/21 09:09 Dose: 75 mg Documented by: Dextrose (Dextrose 50 % 25 Gm/50 Ml Vial) 25 gm IVPUSH Q15M PRN; Protocol PRN Reason: per Hypoglycemia Standing Ord. Enoxaparin Sodium (Enoxaparin Sodium 40 Mg/0.4 Ml Syringe) 40 mg SUBCUT Q24H ANGÉLICA Last Admin: 02/11/21 21:59 Dose: 40 mg Documented by: Gabapentin (Gabapentin 300 Mg Capsule) 300 mg PO TID [facility] Last Admin: 02/12/21 09:09 Dose: 300 mg Documented by: Glucose (Glucose Gel 15 Gm Gel..Gram.) 15 gm PO Q15M PRN; Protocol PRN Reason: per Hypoglycemia Standing Ord. Linezolid (Zyvox/D5w) 600 mg in 300 mls @ 300 mls/hr IV Q12H ANGÉLICA Last Infusion: 02/12/21 09:01 Dose: Infused Documented by: Ceftriaxone Sodium 1 gm/ (Sodium Chloride) 50 mls @ 100 mls/hr IV Q24H [facility] Last Infusion: 02/12/21 09:51 Dose: Infused Documented by: Insulin Glargine (Insulin Glargine,Hum.Rec.Anlog 100 Unit/Ml 10 Ml Vial) 50 unit SUBCUT BEDTIME [facility] Insulin Human Lispro (Insulin Lispro 100 Unit/Ml 3 Ml Vial) 0 unit SUBCUT QIDACHS [facility]; Protocol Last Admin: 02/12/21 08:07 Dose: 4 unit Documented by: Insulin Human Lispro (Insulin Lispro 100 Unit/Ml 3 Ml Vial) 20 unit SUBCUT TIDAC [facility] Oxycodone HCl (Oxycodone Hcl Immed Release 5 Mg Tablet) 5 mg PO Q4H PRN PRN Reason: Pain, Severe (Pain Scale 7-10) Last Admin: 02/12/21 08:07 Dose: 5 mg Documented by: Sodium Chloride (0.9 % Sodium Chloride Flush 3 Ml Syringe) 3 ml IVFLUSH QSHIFT [facility] Last Admin: 02/12/21 08:09 Dose: 3 ml Documented by: Thiamine HCl (Thiamine Hcl 100 Mg Tablet) 100 mg PO DAILY [facility] Last Admin: 02/12/21 09:09 Dose: 100 mg Documented by: Home Medications Medication Instructions Recorded Confirmed Last Taken Type Lantus U-100 Insulin 50 units BEDTIME 03/19/20 02/11/21 02/10/21 History amlodipine 10 mg tablet 1 tab PO DAILY 03/19/20 02/11/21 02/11/21 History atorvastatin 80 mg tablet 1 tab PO BEDTIME 03/19/20 02/11/21 02/10/21 History gabapentin 300 mg capsule 1 cap PO TID 03/19/20 02/11/21 02/11/21 History insulin aspart U-100 100 unit/mL 20 unit SUBCUT TIDAC 03/19/20 02/11/21 02/11/21 History subcutaneous solution (Novolog U-100 Insulin aspart) Plavix 75 mg PO DAILY cap 09/06/20 02/11/21 02/10/21 History Physical Exam Vital Signs: Vital Signs: Last Vital Signs Temp 98.5 F 02/12/21 07:56 Pulse 73 02/12/21 07:56 Resp 18 02/12/21 07:56 BP 180/88 H 02/12/21 07:56 Pulse Ox 98 02/12/21 07:56 Body Mass Index 36.7 Const: General: cooperative, healthy appearing and comfortable Orientation/consciousness: oriented to person, oriented to place and oriented to time HENMT: Head: Yes normal to inspection Neck: Neck: Yes normal visual inspection Carotids: no bruits Chest: Chest palpation & inspection: normal inspection of the chest Resp: Effort & Inspection: normal respiratory effort and able to speak in complete sentences Auscultation: clear to auscultation bilaterally, no crackles, no rales, no rhonchi and no wheezes Cardio: Rate: regular rate Rhythm: regular rhythm Heart sounds: S1 normal heart sound present and S2 normal heart sound present Bruits: no carotid bruits Peripheral pulses: Peripheral pulses 2+ throughout GI: Inspection: Yes normal to inspection Skin: Other: Left transmetatarsal dry eschar removed. Wound measures 5.5 x 2 cm x 0.3 cm. Deep cultures were undertaken. Wounds: amputation site (Left trans met nonhealing) and wounds noted Hair: normal Neuro: General: oriented to person, oriented to place and oriented to time Cranial nerves: Yes CN's II-XII intact bilaterally and Yes Normal hearing present Cognition (Neuro): normal cognition Motor exam (neuro): 5/5 motor strength present throughout Extrem: Other: venous exam: No significant superficial varicosities or spider telangiectasias, minimal edema General: No clubbing, No cyanosis and No edema Psych: Appearance: grossly normal Mental Status: mental status grossly normal Speech and movement: Normal speech and movement present Results Labs Result diagrams: 02/12/21 06:16 02/12/21 06:16 Labs: Abnormal lab results 02/11/21 02/11/21 02/11/21 Range/Units 13:49 13:49 14:07 WBC 12.9 H (4.8-10.8) X10*3/uL Abs Immat Gran (auto) 0.05 H (0.00-0.03) X10*3/uL ESR 63 H (0-20) MM/HR Carbon Dioxide 21 L (22-29) mmol/L BUN 21 H (9-16) mg/dL POC Glucose (60-115) mg/dL Random Glucose 365 H* (60-115) mg/dL Lactic Acid (0.5-2.0) mmol/L Lactic Acid Fup @ 2Hr (0.5-2.0) mmol/L Lactic Acid Fup @ 4Hr (0.5-2.0) mmol/L Alkaline Phosphatase 131 H (39-117) U/L C-Reactive Protein 4.19 H (< or = 0.50) mg/dL Total Protein 6.3 L (6.5-8.0) g/dL Albumin 3.2 L (3.5-5.0) g/dL Urine Protein (NEG-TRACE) MG/DL Urine Glucose (UA) (NEG) MG/DL Urine Nitrite (NEG) Ur Leukocyte Esterase (NEG) Urine WBC (0-4) /HPF 02/11/21 02/11/21 02/11/21 Range/Units 14:07 17:00 19:33 WBC (4.8-10.8) X10*3/uL Abs Immat Gran (auto) (0.00-0.03) X10*3/uL ESR (0-20) MM/HR Carbon Dioxide (22-29) mmol/L BUN (9-16) mg/dL POC Glucose (60-115) mg/dL Random Glucose (60-115) mg/dL Lactic Acid 3.2 H* (0.5-2.0) mmol/L Lactic Acid Fup @ 2Hr 2.6 H* (0.5-2.0) mmol/L Lactic Acid Fup @ 4Hr 2.4 H* (0.5-2.0) mmol/L Alkaline Phosphatase (39-117) U/L C-Reactive Protein (< or = 0.50) mg/dL Total Protein (6.5-8.0) g/dL Albumin (3.5-5.0) g/dL Urine Protein (NEG-TRACE) MG/DL Urine Glucose (UA) (NEG) MG/DL Urine Nitrite (NEG) Ur Leukocyte Esterase (NEG) Urine WBC (0-4) /HPF 02/11/21 02/12/21 02/12/21 Range/Units 21:46 05:05 06:16 WBC 11.7 H (4.8-10.8) X10*3/uL Abs Immat Gran (auto) (0.00-0.03) X10*3/uL ESR (0-20) MM/HR Carbon Dioxide (22-29) mmol/L BUN (9-16) mg/dL POC Glucose 178 H (60-115) mg/dL Random Glucose (60-115) mg/dL Lactic Acid (0.5-2.0) mmol/L Lactic Acid Fup @ 2Hr (0.5-2.0) mmol/L Lactic Acid Fup @ 4Hr (0.5-2.0) mmol/L Alkaline Phosphatase (39-117) U/L C-Reactive Protein (< or = 0.50) mg/dL Total Protein (6.5-8.0) g/dL Albumin (3.5-5.0) g/dL Urine Protein 3+ H (NEG-TRACE) MG/DL Urine Glucose (UA) 250 H (NEG) MG/DL Urine Nitrite POS H (NEG) Ur Leukocyte Esterase 1+ H (NEG) Urine WBC 76-150 H (0-4) /HPF 02/12/21 02/12/21 Range/Units 06:16 07:54 WBC (4.8-10.8) X10*3/uL Abs Immat Gran (auto) (0.00-0.03) X10*3/uL ESR (0-20) MM/HR Carbon Dioxide (22-29) mmol/L BUN (9-16) mg/dL POC Glucose 188 H (60-115) mg/dL Random Glucose 181 H (60-115) mg/dL Lactic Acid (0.5-2.0) mmol/L Lactic Acid Fup @ 2Hr (0.5-2.0) mmol/L Lactic Acid Fup @ 4Hr (0.5-2.0) mmol/L Alkaline Phosphatase (39-117) U/L C-Reactive Protein (< or = 0.50) mg/dL Total Protein (6.5-8.0) g/dL Albumin (3.5-5.0) g/dL Urine Protein (NEG-TRACE) MG/DL Urine Glucose (UA) (NEG) MG/DL Urine Nitrite (NEG) Ur Leukocyte Esterase (NEG) Urine WBC (0-4) /HPF Short CBC 02/11/21 02/12/21 Range/Units 13:49 06:16 WBC 12.9 H 11.7 H (4.8-10.8) X10*3/uL Hgb 12.4 12.5 (12.0-16.0) g/dl Hct 37.3 37.5 (37-47) % Plt Count 259 D 327 D (160-400) X10*3/uL BMP 02/11/21 02/12/21 13:49 06:16 Sodium 135 137 Potassium 3.8 3.7 Chloride 101 105 Carbon Dioxide 21 L 24 BUN 21 H 12 Creatinine 1.15 0.77 Calcium 8.5 8.4 Liver Function 02/11/21 Range/Units 13:49 Total Bilirubin 0.3 (0.0-1.0) mg/dL Direct Bilirubin < 0.2 (0.0-0.5) mg/dL AST 28 (5-31) U/L ALT 22 (0-31) U/L Alkaline Phosphatase 131 H (39-117) U/L Albumin 3.2 L (3.5-5.0) g/dL Urine 02/12/21 Range/Units 05:05 Urine Color YELLOW Urine Appearance HAZY Urine pH 7.0 (5.0-8.0) Ur Specific [place] 1.020 (1.005-1.025) Urine Protein 3+ H (NEG-TRACE) MG/DL Urine Glucose (UA) 250 H (NEG) MG/DL All other labs normal. Assessment and Plan (1) Diabetic foot infection: Status: Acute In short patient has a new ulcer that has developed on the transmetatarsal flap. We have undertaken deep cultures. In addition we will await MRI. I have taken the liberty of ordering noninvasive testing as well. Thank you for allowing us to assist in her care. If there are any questions or concerns please do not hesitate to contact us. Procedures Date of Service Date of Service: 02/12/21
--- NOTE | 2021-02-12 11:39 | P.PNIM_ITS ---
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 DM foot infection/abscess/osteomyelitis MRI tomorrow, ID consult Seen by vascular surgery for debridement, no abscess seen on exam follow BCx, and cx from foot Depending on MRI result can continue zyvox for 6 weeks po UTI Rocephin follow cx HTN. elevated continue amlodipine for now and may need to add 2nd agent if continues to be elevated HLD atorvastatin chronic HFpEF appears euvolemic uncontroled DM2 basal/bolus insulin DM neuropathy gabapentin uncontrolled DM2, A1c 12.4 increased Lantus + Humalog, discussed importance of adherence/diet Obesity. BMI 36.8 discussed the importance of weight loss as obesity may be contributing to worsening of other comorbidities VTE ppx LMWH Full code Attending Dr. Bernard <Savana Pablo NP - Last Filed: 02/12/21 11:48> Subjective Subjective Date of Service: 02/12/21 <Savana Pablo NP - Last Filed: 02/12/21 11:48> 02/13/21 <Pal Bernard MD - Last Filed: 02/13/21 08:00> Review of Systems follow-up nonhealing diabetic foot wound/osteomyelitis Not having any pain Ambulating in room <Savana Pablo NP - Last Filed: 02/12/21 11:48> Physical Exam Vital Signs: Vital Signs: Last Vital Signs Temp 98.5 F 02/12/21 07:56 Pulse 73 02/12/21 07:56 Resp 18 02/12/21 07:56 BP 180/88 H 02/12/21 07:56 Pulse Ox 98 02/12/21 07:56 Body Mass Index 36.7 <Savana Pablo NP - Last Filed: 02/12/21 11:48> Appearing in no acute distress lung sounds are clear to auscultation heart regular rate rhythm, clear S1, S2 positive bowel sounds, abdomen is soft, nontender neuro patient is alert x3, no focal deficits <Savana Pablo NP - Last Filed: 02/12/21 11:48> Objective Data Current Medications Acetaminophen (Acetaminophen 325 Mg Tablet) 650 mg PO Q6H PRN PRN Reason: Pain, Mild (Pain Scale 1-3) Last Admin: 02/12/21 08:08 Dose: 650 mg Documented by: Amlodipine Besylate (Amlodipine Besylate 10 Mg Tablet) 10 mg PO DAILY [facility]; Protocol Last Admin: 02/12/21 09:09 Dose: 10 mg Documented by: Atorvastatin Calcium (Atorvastatin Calcium 80 Mg Tablet) 80 mg PO BEDTIME [facility] Clopidogrel Bisulfate (Clopidogrel Bisulfate 75 Mg Tablet) 75 mg PO DAILY [facility] Last Admin: 02/12/21 09:09 Dose: 75 mg Documented by: Dextrose (Dextrose 50 % 25 Gm/50 Ml Vial) 25 gm IVPUSH Q15M PRN; Protocol PRN Reason: per Hypoglycemia Standing Ord. Enoxaparin Sodium (Enoxaparin Sodium 40 Mg/0.4 Ml Syringe) 40 mg SUBCUT Q24H [facility] Last Admin: 02/11/21 21:59 Dose: 40 mg Documented by: Gabapentin (Gabapentin 300 Mg Capsule) 300 mg PO TID [facility] Last Admin: 02/12/21 09:09 Dose: 300 mg Documented by: Glucose (Glucose Gel 15 Gm Gel..Gram.) 15 gm PO Q15M PRN; Protocol PRN Reason: per Hypoglycemia Standing Ord. Linezolid (Zyvox/D5w) 600 mg in 300 mls @ 300 mls/hr IV Q12H [facility] Last Infusion: 02/12/21 09:01 Dose: Infused Documented by: Ceftriaxone Sodium 1 gm/ (Sodium Chloride) 50 mls @ 100 mls/hr IV Q24H [facility] Last Infusion: 02/12/21 09:51 Dose: Infused Documented by: Insulin Glargine (Insulin Glargine,Hum.Rec.Anlog 100 Unit/Ml 10 Ml Vial) 50 unit SUBCUT BEDTIME [facility]LICA Insulin Human Lispro (Insulin Lispro 100 Unit/Ml 3 Ml Vial) 0 unit SUBCUT QIDACHS [facility]; Protocol Last Admin: 02/12/21 08:07 Dose: 4 unit Documented by: Insulin Human Lispro (Insulin Lispro 100 Unit/Ml 3 Ml Vial) 20 unit SUBCUT TIDAC [facility] Oxycodone HCl (Oxycodone Hcl Immed Release 5 Mg Tablet) 5 mg PO Q4H PRN PRN Reason: Pain, Severe (Pain Scale 7-10) Last Admin: 02/12/21 08:07 Dose: 5 mg Documented by: Sodium Chloride (0.9 % Sodium Chloride Flush 3 Ml Syringe) 3 ml IVFLUSH QSHIFT [facility] Last Admin: 02/12/21 08:09 Dose: 3 ml Documented by: Thiamine HCl (Thiamine Hcl 100 Mg Tablet) 100 mg PO DAILY [facility] Last Admin: 02/12/21 09:09 Dose: 100 mg Documented by: <Savana Pablo NP - Last Filed: 02/12/21 11:48> Labs CBC & Chem 7: : 02/12/21 06:16 02/12/21 06:16 <Savana Pablo NP - Last Filed: 02/12/21 11:48> Labs: Laboratory Results - last 24 hr 02/11/21 02/11/21 02/11/21 13:49 13:49 14:06 MCV 81.8 MCH 27.2 MCHC 33.2 RDW 13.4 Plt Count 259 D MPV 11.1 Immature Gran % (Auto) 0.4 Neut % (Auto) 62.6 Lymph % (Auto) 24.4 [place] % (Auto) 8.6 Eos % (Auto) 3.1 Baso % (Auto) 0.9 Lymph # (Auto) 3.2 [place] # (Auto) 1.1 Eos # (Auto) 0.4 Baso # (Auto) 0.1 Abs Immat Gran (auto) 0.05 H Absolute Neuts (auto) 8.1 Absolute Nucleated RBC 0.000 Nucleated RBC % (auto) 0.0 ESR PT 11.8 INR 1.0 APTT 25.9 Anion Gap 17 Estim Creat Clear Calc 62.1 Estimated GFR 50 POC Glucose Random Glucose 365 H* Lactic Acid Lactic Acid Fup @ 2Hr Lactic Acid Fup @ 4Hr Calcium 8.5 Magnesium 1.6 Total Bilirubin 0.3 Direct Bilirubin < 0.2 AST 28 ALT 22 Alkaline Phosphatase 131 H C-Reactive Protein 4.19 H Total Protein 6.3 L Albumin 3.2 L Urine Color Urine Appearance Urine pH Ur Specific [place] Urine Protein Urine Glucose (UA) Urine Ketones Urine Blood Urine Nitrite Ur Leukocyte Esterase Urine RBC Urine WBC Urine WBC Clumps Ur Squamous Epith Cells Urine Bacteria COVID-19 ([facility]) [employer] 02/11/21 02/11/21 02/11/21 14:07 14:07 17:00 MCV MCH MCHC RDW Plt Count MPV Immature Gran % (Auto) Neut % (Auto) Lymph % (Auto) [place] % (Auto) Eos % (Auto) Baso % (Auto) Lymph # (Auto) [place] # (Auto) Eos # (Auto) Baso # (Auto) Abs Immat Gran (auto) Absolute Neuts (auto) Absolute Nucleated RBC Nucleated RBC % (auto) ESR 63 H PT INR APTT Anion Gap Estim Creat Clear Calc Estimated GFR POC Glucose Random Glucose Lactic Acid 3.2 H* Lactic Acid Fup @ 2Hr 2.6 H* Lactic Acid Fup @ 4Hr Calcium Magnesium Total Bilirubin Direct Bilirubin AST ALT Alkaline Phosphatase C-Reactive Protein Total Protein Albumin Urine Color Urine Appearance Urine pH Ur Specific [place] Urine Protein Urine Glucose (UA) Urine Ketones Urine Blood Urine Nitrite Ur Leukocyte Esterase Urine RBC Urine WBC Urine WBC Clumps Ur Squamous Epith Cells Urine Bacteria COVID-19 ([facility]) [employer] 02/11/21 02/11/21 02/11/21 19:33 20:13 21:46 MCV MCH MCHC RDW Plt Count MPV Immature Gran % (Auto) Neut % (Auto) Lymph % (Auto) [place] % (Auto) Eos % (Auto) Baso % (Auto) Lymph # (Auto) [place] # (Auto) Eos # (Auto) Baso # (Auto) Abs Immat Gran (auto) Absolute Neuts (auto) Absolute Nucleated RBC Nucleated RBC % (auto) ESR PT INR APTT Anion Gap Estim Creat Clear Calc Estimated GFR POC Glucose 178 H Random Glucose Lactic Acid Lactic Acid Fup @ 2Hr Lactic Acid Fup @ 4Hr 2.4 H* Calcium Magnesium Total Bilirubin Direct Bilirubin AST ALT Alkaline Phosphatase C-Reactive Protein Total Protein Albumin Urine Color Urine Appearance Urine pH Ur Specific [place] Urine Protein Urine Glucose (UA) Urine Ketones Urine Blood Urine Nitrite Ur Leukocyte Esterase Urine RBC Urine WBC Urine WBC Clumps Ur Squamous Epith Cells Urine Bacteria COVID-19 ([facility]) Negative [employer]-19 Clin Com See Note 02/12/21 02/12/21 02/12/21 05:05 06:16 06:16 MCV 81.7 MCH 27.2 MCHC 33.3 RDW 13.3 Plt Count 327 D MPV 10.5 Immature Gran % (Auto) Neut % (Auto) Lymph % (Auto) [place] % (Auto) Eos % (Auto) Baso % (Auto) Lymph # (Auto) [place] # (Auto) Eos # (Auto) Baso # (Auto) Abs Immat Gran (auto) Absolute Neuts (auto) Absolute Nucleated RBC 0.000 Nucleated RBC % (auto) 0.0 ESR PT INR APTT Anion Gap 12 Estim Creat Clear Calc 92.8 Estimated GFR > 60 POC Glucose Random Glucose 181 H Lactic Acid Lactic Acid Fup @ 2Hr Lactic Acid Fup @ 4Hr Calcium 8.4 Magnesium Total Bilirubin Direct Bilirubin AST ALT Alkaline Phosphatase C-Reactive Protein Total Protein Albumin Urine Color YELLOW Urine Appearance HAZY Urine pH 7.0 Ur Specific [place] 1.020 Urine Protein 3+ H Urine Glucose (UA) 250 H Urine Ketones NEG Urine Blood TRACE Urine Nitrite POS H Ur Leukocyte Esterase 1+ H Urine RBC 0-2 Urine WBC 76-150 H Urine WBC Clumps NOTED Ur Squamous Epith Cells 2+ Urine Bacteria 4+ COVID-19 ([facility]) COVID-19 Clin Com 02/12/21 07:54 MCV MCH MCHC RDW Plt Count MPV Immature Gran % (Auto) Neut % (Auto) Lymph % (Auto) [place] % (Auto) Eos % (Auto) Baso % (Auto) Lymph # (Auto) [place] # (Auto) Eos # (Auto) Baso # (Auto) Abs Immat Gran (auto) Absolute Neuts (auto) Absolute Nucleated RBC Nucleated RBC % (auto) ESR PT INR APTT Anion Gap Estim Creat Clear Calc Estimated GFR POC Glucose 188 H Random Glucose Lactic Acid Lactic Acid Fup @ 2Hr Lactic Acid Fup @ 4Hr Calcium Magnesium Total Bilirubin Direct Bilirubin AST ALT Alkaline Phosphatase C-Reactive Protein Total Protein Albumin Urine Color Urine Appearance Urine pH Ur Specific [place] Urine Protein Urine Glucose (UA) Urine Ketones Urine Blood Urine Nitrite Ur Leukocyte Esterase Urine RBC Urine WBC Urine WBC Clumps Ur Squamous Epith Cells Urine Bacteria COVID-19 ([facility]) COVID-19 Clin Com <Savana Pablo NP - Last Filed: 02/12/21 11:48> Microbiology Microbiology Results: Microbiology 02/12/21 10:24 Foot Left Anaerobic Culture - Preliminary <Savana Pablo NP - Last Filed: 02/12/21 11:48> Quality Stroke Does the patient have a stroke diagnosis?: No <Savana Pablo NP - Last Filed: 02/12/21 11:48> VTE Prior VTE?: No <Savana Pablo NP - Last Filed: 02/12/21 11:48> VTE Risk Level:: Medical - moderate - high <Savana Pablo NP - Last Filed: 02/12/21 11:48> VTE Device Contraindication: N/A - Device Ordered <Savana Pablo NP - Last Filed: 02/12/21 11:48> VTE Drug Contraindication: N/A - Med Ordered <Savana Pablo NP - Last Filed: 02/12/21 11:48>
[2021-02-12 12:00] LABS: Glucose, Whole Blood 157 mg/dL (60-115)
--- NOTE | 2021-02-12 12:59 | W.PM.IDCN ---
History of Present Illness Data of Consult Service Date: 02/12/21 Requesting physician: Jesusita Gonzalez Primary Care Provider: Farhana Ellison MD HPI Reason for consult: foot infection,diabetes She presents to hospital with worsening swelling left foot with fever and tachycardia. She has had tachycardia. Blood cultures are pending She had prior enterococcus,resistant Vancomycin MRI is pending Dr Peguero has seen and debrided. Review of Systems Review of Systems: Yes all other systems are reviewed and are negative PMFSH Past Medical History Medical History (Updated 03/06/21 @ 15:11 by John Peguero MD) Abscess Amputated toe of left foot Amputation of left foot BMI 39.0-39.9,adult Chronic heart failure with preserved ejection fraction (HFpEF) Chronic osteomyelitis of foot Diabetes Diabetic foot infection Diabetic foot infection Essential hypertension High cholesterol Hyperlipidemia Hypertension Insulin dependent diabetes mellitus Neuropathy Obesity Osteomyelitis PAD (peripheral artery disease) Type 2 diabetes mellitus with unspecified complications Uncontrolled diabetes mellitus Vitamin B12 deficiency VRE (vancomycin resistant enterococcus) culture positive Family History Family History Mother Diabetes Hypertension Disk prolapse Father Diabetes Hypertension Sister No problems noted. Brother No problems noted. Daughter No problems noted. Son No problems noted. Surgical History Surgical History H/O spinal fusion History of section History of tubal ligation Social History Social History Household Members: Spouse Household Members Other:: Housing: Apartment Do you presently have visiting nurse or other home services: Yes Alcohol intake: never Patient Tobacco Use Status: Never used Tobacco service: No Current occupational status: unemployed Meds Allergies Allergy/AdvReac Type Severity Reaction Status Date / Time No Known Allergies Allergy Verified 03/06/21 14:48 [No Known Allergies*] Active Medications: Current Medications Acetaminophen (Acetaminophen 325 Mg Tablet) 650 mg PO Q6H PRN PRN Reason: Pain, Mild (Pain Scale 1-3) Last Admin: 02/12/21 08:08 Dose: 650 mg Documented by: Amlodipine Besylate (Amlodipine Besylate 10 Mg Tablet) 10 mg PO DAILY [facility]; Protocol Last Admin: 02/12/21 09:09 Dose: 10 mg Documented by: Atorvastatin Calcium (Atorvastatin Calcium 80 Mg Tablet) 80 mg PO BEDTIME ANG[facility]LICA Clopidogrel Bisulfate (Clopidogrel Bisulfate 75 Mg Tablet) 75 mg PO DAILY [facility] Last Admin: 02/12/21 09:09 Dose: 75 mg Documented by: Dextrose (Dextrose 50 % 25 Gm/50 Ml Vial) 25 gm IVPUSH Q15M PRN; Protocol PRN Reason: per Hypoglycemia Standing Ord. Enoxaparin Sodium (Enoxaparin Sodium 40 Mg/0.4 Ml Syringe) 40 mg SUBCUT Q24H [facility] Last Admin: 02/11/21 21:59 Dose: 40 mg Documented by: Gabapentin (Gabapentin 300 Mg Capsule) 300 mg PO TID [facility] Last Admin: 02/12/21 09:09 Dose: 300 mg Documented by: Glucose (Glucose Gel 15 Gm Gel..Gram.) 15 gm PO Q15M PRN; Protocol PRN Reason: per Hypoglycemia Standing Ord. Linezolid (Zyvox/D5w) 600 mg in 300 mls @ 300 mls/hr IV Q12H [facility] Last Infusion: 02/12/21 09:01 Dose: Infused Documented by: Ceftriaxone Sodium 1 gm/ (Sodium Chloride) 50 mls @ 100 mls/hr IV Q24H [facility] Last Infusion: 02/12/21 09:51 Dose: Infused Documented by: Insulin Glargine (Insulin Glargine,Hum.Rec.Anlog 100 Unit/Ml 10 Ml Vial) 50 unit SUBCUT BEDTIME [facility] Insulin Human Lispro (Insulin Lispro 100 Unit/Ml 3 Ml Vial) 0 unit SUBCUT QIDACHS [facility]; Protocol Last Admin: 02/12/21 08:07 Dose: 4 unit Documented by: Insulin Human Lispro (Insulin Lispro 100 Unit/Ml 3 Ml Vial) 20 unit SUBCUT TIDAC [facility] Oxycodone HCl (Oxycodone Hcl Immed Release 5 Mg Tablet) 5 mg PO Q4H PRN PRN Reason: Pain, Severe (Pain Scale 7-10) Last Admin: 02/12/21 08:07 Dose: 5 mg Documented by: Sodium Chloride (0.9 % Sodium Chloride Flush 3 Ml Syringe) 3 ml IVFLUSH QSHIFT [facility] Last Admin: 02/12/21 08:09 Dose: 3 ml Documented by: Thiamine HCl (Thiamine Hcl 100 Mg Tablet) 100 mg PO DAILY [facility] Last Admin: 02/12/21 09:09 Dose: 100 mg Documented by: Home Medications Medication Instructions Recorded Confirmed Last Taken Type Lantus U-100 Insulin 50 units BEDTIME 03/19/20 02/11/21 02/10/21 History amlodipine 10 mg tablet 1 tab PO DAILY 03/19/20 02/11/21 02/11/21 History atorvastatin 80 mg tablet 1 tab PO BEDTIME 03/19/20 02/11/21 02/10/21 History gabapentin 300 mg capsule 1 cap PO TID 03/19/20 02/11/21 02/11/21 History insulin aspart U-100 100 unit/mL 20 unit SUBCUT TIDAC 03/19/20 02/11/21 02/11/21 History subcutaneous solution (Novolog U-100 Insulin aspart) Plavix 75 mg PO DAILY cap 09/06/20 02/11/21 02/10/21 History Physical Exam Vital Signs: Vital Signs: Last Vital Signs Temp 98.5 F 02/12/21 07:56 Pulse 73 02/12/21 07:56 Resp 18 02/12/21 07:56 BP 180/88 H 02/12/21 07:56 Pulse Ox 98 02/12/21 07:56 Body Mass Index 36.7 Const: General: cooperative HENMT: Mouth: Normal oral and palatal mucosa present Eyes: General: appearance normal, both eyes and all related structures Resp: Effort & Inspection: normal respiratory effort Cardio: Rate: regular rate Rhythm: regular rhythm GI: Palpation (GI): Soft to palpation and nontender Skin: General skin exam: no rashes or lesions noted Extrem: Other: wrapped foot,no cellulitis Results Labs CBC & Chem 7: 02/12/21 06:16 02/12/21 06:16 Labs: Short CBC 02/11/21 02/12/21 Range/Units 13:49 06:16 WBC 12.9 H 11.7 H (4.8-10.8) X10*3/uL Hgb 12.4 12.5 (12.0-16.0) g/dl Hct 37.3 37.5 (37-47) % Plt Count 259 D 327 D (160-400) X10*3/uL BMP 02/11/21 02/12/21 13:49 06:16 Sodium 135 137 Potassium 3.8 3.7 Chloride 101 105 Carbon Dioxide 21 L 24 BUN 21 H 12 Creatinine 1.15 0.77 Calcium 8.5 8.4 Liver Function 02/11/21 Range/Units 13:49 Total Bilirubin 0.3 (0.0-1.0) mg/dL Direct Bilirubin < 0.2 (0.0-0.5) mg/dL AST 28 (5-31) U/L ALT 22 (0-31) U/L Alkaline Phosphatase 131 H (39-117) U/L Albumin 3.2 L (3.5-5.0) g/dL Urine 02/12/21 Range/Units 05:05 Urine Color YELLOW Urine Appearance HAZY Urine pH 7.0 (5.0-8.0) Ur Specific [place] 1.020 (1.005-1.025) Urine Protein 3+ H (NEG-TRACE) MG/DL Urine Glucose (UA) 250 H (NEG) MG/DL Microbiology Microbiology Results: Microbiology 02/12/21 10:24 Foot Left Anaerobic Culture - Preliminary Assessment and Plan (1) Diabetic foot infection: She has possible recurrence of osteomyelitis Await cultures Possible po Linezolid for six weeks if VRE Await MRI (2) UTI (urinary tract infection): Status: Resolved
[2021-02-12 15:19] VITALS: BP 154/57; PULSE 75; RESP 18; TEMP 36.3; O2SAT 98
[2021-02-12 16:05] LABS: Glucose, Whole Blood 243 mg/dL (60-115)
[2021-02-12] MEDS: Insulin Lispro 100 UNIT/ML 3 ML VIAL 20 UNIT SUBCUT (16:32)
[2021-02-12] MEDS: Enoxaparin Sodium 40 MG/0.4 ML SYRINGE SUBCUT (19:59)
[2021-02-12 20:05] LABS: Glucose, Whole Blood 181 mg/dL (60-115)
[2021-02-12] MEDS: Atorvastatin Calcium 80 MG TABLET PO (21:03)
[2021-02-12] MEDS: Insulin Glargine,Hum.rec.anlog 100 UNIT/ML 10 ML VIAL 50 UNIT SUBCUT (21:04)
[2021-02-12 23:52] VITALS: BP 137/66; PULSE 81; RESP 17; TEMP 36.2; O2SAT 96
[2021-02-13] MEDS: Linezolid/D5W 600 MG/300 ML PIGGYBACK 300 MG IV (05:41)
[2021-02-13 07:37] LABS: Glucose, Whole Blood 248 mg/dL (60-115)
[2021-02-13 07:51] VITALS: BP 172/84; PULSE 79; RESP 16; TEMP 36.4; O2SAT 100
[2021-02-13] MEDS: cefTRIAXone sodium 1 GM in 0.9 % Sodium Chloride 50 ML IV (07:54)
[2021-02-13] MEDS: Insulin Lispro 100 UNIT/ML 3 ML VIAL 20 UNIT SUBCUT ×3 (07:57→16:25)
[2021-02-13] MEDS: Insulin Lispro 100 UNIT/ML 3 ML VIAL SUBCUT ×4 (07:57→20:14)
[2021-02-13] MEDS: Gabapentin 300 MG CAPSULE PO ×3 (07:58→20:14)
[2021-02-13] MEDS: amLODIPine Besylate 10 MG TABLET PO (07:58)
[2021-02-13] MEDS: Clopidogrel Bisulfate 75 MG TABLET PO (07:58)
[2021-02-13] MEDS: Thiamine HCL 100 MG TABLET PO (07:58)
[2021-02-13] MEDS: oxyCODONE HCl Immed Release 5 MG TABLET PO ×2 (07:58→22:59)
[2021-02-13] MEDS: 0.9 % Sodium Chloride Flush 3 ML SYRINGE IVFLUSH ×3 (08:01→20:15)
--- NOTE | 2021-02-13 10:26 | PM.IMPN ---
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 DM foot infection/osteomyelitis MRI possible osteo Seen by vascular surgery for debridement, no abscess seen on exam follow BCx, and cx from foot MRI showed possible osteomyelitis, will likely continue zyvox for 6 weeks po pending cultures UTI Rocephin follow cx, pending HTN. elevated continue amlodipine, lisinopril added HLD atorvastatin chronic HFpEF appears euvolemic uncontroled DM2 basal/bolus insulin DM neuropathy gabapentin uncontrolled DM2, A1c 12.4 increased Lantus + Humalog, discussed importance of adherence/diet Obesity. BMI 36.8 discussed the importance of weight loss as obesity may be contributing to worsening of other comorbidities VTE ppx LMWH Full code Attending Dr. Bernard Subjective Subjective Date of Service: 02/13/21 Review of Systems Follow-up nonhealing diabetic foot wound/osteomyelitis Not having any pain Ambulating in room? Physical Exam Vital Signs: Vital Signs: Last Vital Signs Temp 97.6 F 02/13/21 07:51 Pulse 79 02/13/21 07:51 Resp 16 02/13/21 07:51 BP 172/84 H 02/13/21 07:51 Pulse Ox 100 02/13/21 07:51 Body Mass Index 36.7 Appearing in no acute distress lung sounds are clear to auscultation heart regular rate rhythm, clear S1, S2 positive bowel sounds, abdomen is soft, nontender neuro patient is alert x3, no focal deficits Objective Data Current Medications Acetaminophen (Acetaminophen 325 Mg Tablet) 650 mg PO Q6H PRN PRN Reason: Pain, Mild (Pain Scale 1-3) Last Admin: 02/12/21 15:24 Dose: 650 mg Documented by: Amlodipine Besylate (Amlodipine Besylate 10 Mg Tablet) 10 mg PO DAILY [facility]; Protocol Last Admin: 02/13/21 07:58 Dose: 10 mg Documented by: Atorvastatin Calcium (Atorvastatin Calcium 80 Mg Tablet) 80 mg PO BEDTIME [facility] Last Admin: 02/12/21 21:03 Dose: 80 mg Documented by: Clopidogrel Bisulfate (Clopidogrel Bisulfate 75 Mg Tablet) 75 mg PO DAILY [facility] Last Admin: 02/13/21 07:58 Dose: 75 mg Documented by: Dextrose (Dextrose 50 % 25 Gm/50 Ml Vial) 25 gm IVPUSH Q15M PRN; Protocol PRN Reason: per Hypoglycemia Standing Ord. Enoxaparin Sodium (Enoxaparin Sodium 40 Mg/0.4 Ml Syringe) 40 mg SUBCUT Q24H [facility] Last Admin: 02/12/21 19:59 Dose: 40 mg Documented by: Gabapentin (Gabapentin 300 Mg Capsule) 300 mg PO TID [facility] Last Admin: 02/13/21 07:58 Dose: 300 mg Documented by: Glucose (Glucose Gel 15 Gm Gel..Gram.) 15 gm PO Q15M PRN; Protocol PRN Reason: per Hypoglycemia Standing Ord. Linezolid (Zyvox/D5w) 600 mg in 300 mls @ 300 mls/hr IV Q12H [facility] Last Infusion: 02/13/21 08:37 Dose: Infused Documented by: Ceftriaxone Sodium 1 gm/ (Sodium Chloride) 50 mls @ 100 mls/hr IV Q24H [facility] Last Infusion: 02/13/21 08:37 Dose: Infused Documented by: Insulin Glargine (Insulin Glargine,Hum.Rec.Anlog 100 Unit/Ml 10 Ml Vial) 50 unit SUBCUT BEDTIME [facility] Last Admin: 02/12/21 21:04 Dose: 50 unit Documented by: Insulin Human Lispro (Insulin Lispro 100 Unit/Ml 3 Ml Vial) 0 unit SUBCUT QIDACHS [facility]; Protocol Last Admin: 02/13/21 07:57 Dose: 6 unit Documented by: Insulin Human Lispro (Insulin Lispro 100 Unit/Ml 3 Ml Vial) 20 unit SUBCUT TIDAC [facility] Last Admin: 02/13/21 07:57 Dose: 20 unit Documented by: Oxycodone HCl (Oxycodone Hcl Immed Release 5 Mg Tablet) 5 mg PO Q4H PRN PRN Reason: Pain, Severe (Pain Scale 7-10) Last Admin: 02/13/21 07:58 Dose: 5 mg Documented by: Sodium Chloride (0.9 % Sodium Chloride Flush 3 Ml Syringe) 3 ml IVFLUSH QSHIFT [facility] Last Admin: 02/13/21 08:01 Dose: 3 ml Documented by: Thiamine HCl (Thiamine Hcl 100 Mg Tablet) 100 mg PO DAILY [facility] Last Admin: 02/13/21 07:58 Dose: 100 mg Documented by: Labs CBC & Chem 7: 02/12/21 06:16 02/12/21 06:16 Labs: Laboratory Results - last 24 hr 02/11/21 02/12/21 02/12/21 13:49 06:16 11:33 Creatinine 1.15 0.77 POC Glucose 157 H 02/12/21 02/12/21 02/13/21 16:00 19:56 07:00 Creatinine POC Glucose 243 H 181 H 248 H Microbiology Microbiology Results: Microbiology 02/11/21 14:37 Blood - Venous Blood Culture - Preliminary No growth after 24 hours. 02/11/21 14:11 Blood - Venous Blood Culture - Preliminary No growth after 24 hours. 02/12/21 10:24 Foot Left Gram Stain - Final Quality Stroke Does the patient have a stroke diagnosis?: No VTE Prior VTE?: No VTE Risk Level:: Medical - moderate - high VTE Device Contraindication: N/A - Device Ordered VTE Drug Contraindication: N/A - Med Ordered
[2021-02-13] MEDS: lisinopriL 2.5 MG TABLET PO (11:41)
[2021-02-13 11:45] LABS: Glucose, Whole Blood 159 mg/dL (60-115)
--- NOTE | 2021-02-13 11:59 | HO.VASCPN ---
Subjective Subjective Date of Service: 02/13/21 Patient reports: no new complaints Interval history: Pleasant 50-year-old female status post transmetatarsal amputation that had developed a new ulcer diabetic foot ulcer. It has been nonhealing. She continues with antibiotics and local wound care. We have obtain noninvasive testing. She now presents for vascular follow-up. Physical Exam Vital Signs: Vital Signs: Last Vital Signs Temp 97.6 F 02/13/21 07:51 Pulse 79 02/13/21 07:51 Resp 16 02/13/21 07:51 BP 172/84 H 02/13/21 07:51 Pulse Ox 100 02/13/21 07:51 Body Mass Index 36.7 Const: General: cooperative, healthy appearing and no acute distress Orientation/consciousness: oriented to person, oriented to place and oriented to time HENMT: Head: Yes normal to inspection Neck: Carotids: no bruits Chest: Chest palpation & inspection: normal inspection of the chest Resp: Effort & Inspection: normal respiratory effort and able to speak in complete sentences Auscultation: clear to auscultation bilaterally Cardio: Rate: regular rate Heart sounds: S1 normal heart sound present and S2 normal heart sound present Peripheral pulses: dorsalis pedis present (Bilateral DP signals) GI: Inspection: Yes normal to inspection Skin: Other: Left trans met approximately 5.5 cm opening General skin exam: no rashes or lesions noted Wounds: no wounds Neuro: General: oriented to person, oriented to place, oriented to time and CN's II-XI intact bilaterally Extrem: General: Yes normal to inspection, Yes full ROM and Yes no clubbing, cyanosis or edema Psych: Appearance: grossly normal and well kempt Speech and movement: Normal speech and movement present Affect: normal affect Progress Note: A&P Assessment and plan (1) PAD (peripheral artery disease): Status: Acute Assessment and Plan: Patient notes nonhealing left leg ulcer. I have discussed the pathophysiology of peripheral vascular disease with the patient. I have also discussed risk factor modification. I have reviewed the patient's arterial testing which reveals below-knee disease, small vessel disease as noted on this ultrasound and prior ultrasound the patient would benefit from a left leg endovascular peripheral angiogram with possible angioplasty, stent, and/or atherectomy. This has been discussed in detail with the patient along with risks, benefits, and complications. This includes but is not limited to bleeding, infection, heart attack, need for emergent surgical repair, limb ischemia, blood vessel damage, bleeding, puncture, kidney injury, bruising, allergic reaction, and skin reaction. The patient demonstrates a clear understanding. We will schedule for the next appropriate time. Thank you for allowing us to assist in this patient's care. Fall Risk Details Current Medications: Current Medications Acetaminophen (Acetaminophen 325 Mg Tablet) 650 mg PO Q6H PRN PRN Reason: Pain, Mild (Pain Scale 1-3) Last Admin: 02/12/21 15:24 Dose: 650 mg Documented by: Amlodipine Besylate (Amlodipine Besylate 10 Mg Tablet) 10 mg PO DAILY ANGÉLICA; Protocol Last Admin: 02/13/21 07:58 Dose: 10 mg Documented by: Atorvastatin Calcium (Atorvastatin Calcium 80 Mg Tablet) 80 mg PO BEDTIME ANGÉLICA Last Admin: 02/12/21 21:03 Dose: 80 mg Documented by: Clopidogrel Bisulfate (Clopidogrel Bisulfate 75 Mg Tablet) 75 mg PO DAILY ANGÉLICA Last Admin: 02/13/21 07:58 Dose: 75 mg Documented by: Dextrose (Dextrose 50 % 25 Gm/50 Ml Vial) 25 gm IVPUSH Q15M PRN; Protocol PRN Reason: per Hypoglycemia Standing Ord. Enoxaparin Sodium (Enoxaparin Sodium 40 Mg/0.4 Ml Syringe) 40 mg SUBCUT Q24H ANGÉLICA Last Admin: 02/12/21 19:59 Dose: 40 mg Documented by: Gabapentin (Gabapentin 300 Mg Capsule) 300 mg PO TID ANGÉLICA Last Admin: 02/13/21 07:58 Dose: 300 mg Documented by: Glucose (Glucose Gel 15 Gm Gel..Gram.) 15 gm PO Q15M PRN; Protocol PRN Reason: per Hypoglycemia Standing Ord. Linezolid (Zyvox/D5w) 600 mg in 300 mls @ 300 mls/hr IV Q12H ANGÉLICA Last Infusion: 02/13/21 08:37 Dose: Infused Documented by: Ceftriaxone Sodium 1 gm/ (Sodium Chloride) 50 mls @ 100 mls/hr IV Q24H ANGÉLICA Last Infusion: 02/13/21 08:37 Dose: Infused Documented by: Insulin Glargine (Insulin Glargine,Hum.Rec.Anlog 100 Unit/Ml 10 Ml Vial) 50 unit SUBCUT BEDTIME ANGÉLICA Last Admin: 02/12/21 21:04 Dose: 50 unit Documented by: Insulin Human Lispro (Insulin Lispro 100 Unit/Ml 3 Ml Vial) 0 unit SUBCUT QIDACHS [facility]; Protocol Last Admin: 02/13/21 11:40 Dose: 4 unit Documented by: Insulin Human Lispro (Insulin Lispro 100 Unit/Ml 3 Ml Vial) 20 unit SUBCUT TIDAC [facility] Last Admin: 02/13/21 11:41 Dose: 20 unit Documented by: Lisinopril (Lisinopril 2.5 Mg Tablet) 2.5 mg PO DAILY [facility]; Protocol Last Admin: 02/13/21 11:41 Dose: 2.5 mg Documented by: Oxycodone HCl (Oxycodone Hcl Immed Release 5 Mg Tablet) 5 mg PO Q4H PRN PRN Reason: Pain, Severe (Pain Scale 7-10) Last Admin: 02/13/21 07:58 Dose: 5 mg Documented by: Sodium Chloride (0.9 % Sodium Chloride Flush 3 Ml Syringe) 3 ml IVFLUSH QSHIFT [facility] Last Admin: 02/13/21 08:01 Dose: 3 ml Documented by: Thiamine HCl (Thiamine Hcl 100 Mg Tablet) 100 mg PO DAILY [facility] Last Admin: 02/13/21 07:58 Dose: 100 mg Documented by: Time Spent With Patient Time: Total time spent is greater than 50% in coordination of care (as documented) at patient's floor/unit and/or counseling patient: Time with patient: 15 - 24 minutes Procedures Date of Service Date of Service: 02/13/21 Quality Stroke Does the patient have a stroke diagnosis?: No VTE Prior VTE?: No VTE Risk Level:: Medical - moderate - high VTE Device Contraindication: N/A - Device Ordered VTE Drug Contraindication: N/A - Med Ordered
[2021-02-13 15:40] VITALS: BP 140/64; PULSE 80; RESP 18; TEMP 36.4; O2SAT 95
[2021-02-13 16:16] LABS: Glucose, Whole Blood 163 mg/dL (60-115)
[2021-02-13] MEDS: Linezolid/D5W 600 MG/300 ML PIGGYBACK 150 MG IV (17:09)
[2021-02-13 20:11] LABS: Glucose, Whole Blood 249 mg/dL (60-115)
[2021-02-13] MEDS: Atorvastatin Calcium 80 MG TABLET PO (20:14)
[2021-02-13] MEDS: Insulin Glargine,Hum.rec.anlog 100 UNIT/ML 10 ML VIAL 50 UNIT SUBCUT (20:14)
[2021-02-14] VITALS (9 sets, daily range): BP systolic 144–173; BP diastolic 68–83; PULSE 72–83; RESP 16–18; TEMP 36.1–36.5; O2SAT 93–98
[2021-02-14] MEDS: 0.9 % Sodium Chloride 1,000 ML 100 ML IVCONT (05:44)
[2021-02-14] MEDS: Linezolid/D5W 600 MG/300 ML PIGGYBACK 150 MG IV (05:44)
[2021-02-14 06:51] LABS: Glucose, Whole Blood 218 mg/dL (60-115)
--- NOTE | 2021-02-14 08:27 | P.PNIM_ITS ---
Progress Note: A&P Assessment and Plan: 49yo F with uncontrolled DM2 admitted for nonhealing L? 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 DM foot infection/osteomyelitis MRI possible osteo Seen by vascular surgery for debridement, no abscess seen on exam follow BCx, and cx from foot MRI showed possible osteomyelitis, will likely continue zyvox for 6 weeks po pending cultures Will go for angiogram today as per vascular UTI Rocephin follow cx, pending HTN. elevated continue amlodipine, lisinopril added HLD atorvastatin chronic HFpEF appears euvolemic uncontroled DM2 basal/bolus insulin DM neuropathy gabapentin uncontrolled DM2, A1c 12.4 increased Lantus + Humalog, discussed importance of adherence/diet Obesity. BMI 36.8 discussed the importance of weight loss as obesity may be contributing to worsening of other comorbidities VTE ppx LMWH Full code Attending Dr. Bernard Subjective Subjective Date of Service: 02/14/21 Review of Systems Follow-up nonhealing diabetic foot wound/osteomyelitis Not having any pain Ambulating in room Physical Exam Vital Signs: Vital Signs: Last Vital Signs Temp 97.7 F 02/14/21 03:52 Pulse 82 02/14/21 03:52 Resp 17 02/14/21 03:52 BP 144/71 H 02/14/21 03:52 Pulse Ox 95 02/14/21 03:52 Body Mass Index 36.7 Appearing in no acute distress lung sounds are clear to auscultation heart regular rate rhythm, clear S1, S2 positive bowel sounds, abdomen is soft, nontender neuro patient is alert x3, no focal deficits Left TMA Objective Data Current Medications Acetaminophen (Acetaminophen 325 Mg Tablet) 650 mg PO Q6H PRN PRN Reason: Pain, Mild (Pain Scale 1-3) Last Admin: 02/12/21 15:24 Dose: 650 mg Documented by: Amlodipine Besylate (Amlodipine Besylate 10 Mg Tablet) 10 mg PO DAILY ANGÉLICA; Protocol Last Admin: 02/13/21 07:58 Dose: 10 mg Documented by: Atorvastatin Calcium (Atorvastatin Calcium 80 Mg Tablet) 80 mg PO BEDTIME ANGÉLICA Last Admin: 02/13/21 20:14 Dose: 80 mg Documented by: Clopidogrel Bisulfate (Clopidogrel Bisulfate 75 Mg Tablet) 75 mg PO DAILY [facility] Last Admin: 02/13/21 07:58 Dose: 75 mg Documented by: Dextrose (Dextrose 50 % 25 Gm/50 Ml Vial) 25 gm IVPUSH Q15M PRN; Protocol PRN Reason: per Hypoglycemia Standing Ord. Enoxaparin Sodium (Enoxaparin Sodium 40 Mg/0.4 Ml Syringe) 40 mg SUBCUT Q24H [facility] Last Admin: 02/13/21 19:40 Dose: Not Given Documented by: Gabapentin (Gabapentin 300 Mg Capsule) 300 mg PO TID [facility] Last Admin: 02/13/21 20:14 Dose: 300 mg Documented by: Glucose (Glucose Gel 15 Gm Gel..Gram.) 15 gm PO Q15M PRN; Protocol PRN Reason: per Hypoglycemia Standing Ord. Linezolid (Zyvox/D5w) 600 mg in 300 mls @ 300 mls/hr IV Q12H [facility] Last Admin: 02/14/21 05:44 Dose: 150 mls/hr Documented by: Ceftriaxone Sodium 1 gm/ (Sodium Chloride) 50 mls @ 100 mls/hr IV Q24H [facility] Last Infusion: 02/13/21 08:37 Dose: Infused Documented by: Sodium Chloride (Ns) 1,000 mls @ 100 mls/hr IVCONT .Q10H [facility] Last Admin: 02/14/21 05:44 Dose: 100 mls/hr Documented by: Insulin Glargine (Insulin Glargine,Hum.Rec.Anlog 100 Unit/Ml 10 Ml Vial) 50 unit SUBCUT BEDTIME [facility] Last Admin: 02/13/21 20:14 Dose: 50 unit Documented by: Insulin Human Lispro (Insulin Lispro 100 Unit/Ml 3 Ml Vial) 0 unit SUBCUT QIDACHS [facility]; Protocol Last Admin: 02/14/21 07:19 Dose: Not Given Documented by: Insulin Human Lispro (Insulin Lispro 100 Unit/Ml 3 Ml Vial) 20 unit SUBCUT TIDAC [facility] Last Admin: 02/14/21 07:20 Dose: Not Given Documented by: Lisinopril (Lisinopril 2.5 Mg Tablet) 2.5 mg PO DAILY [facility]; Protocol Last Admin: 02/13/21 11:41 Dose: 2.5 mg Documented by: Oxycodone HCl (Oxycodone Hcl Immed Release 5 Mg Tablet) 5 mg PO Q4H PRN PRN Reason: Pain, Severe (Pain Scale 7-10) Last Admin: 02/13/21 22:59 Dose: 5 mg Documented by: Sodium Chloride (0.9 % Sodium Chloride Flush 3 Ml Syringe) 3 ml IVFLUSH QSHIFT [facility] Last Admin: 02/14/21 07:20 Dose: Not Given Documented by: Thiamine HCl (Thiamine Hcl 100 Mg Tablet) 100 mg PO DAILY [facility] Last Admin: 02/13/21 07:58 Dose: 100 mg Documented by: Labs CBC & Chem 7: 02/12/21 06:16 02/12/21 06:16 Labs: Laboratory Results - last 24 hr 02/13/21 02/13/21 02/13/21 11:06 16:11 20:07 POC Glucose 159 H 163 H 249 H 02/14/21 06:48 POC Glucose 218 H Microbiology Microbiology Results: Microbiology 02/11/21 14:37 Blood - Venous Blood Culture - Preliminary No growth after 48 hours. 02/11/21 14:11 Blood - Venous Blood Culture - Preliminary No growth after 48 hours. 02/12/21 Unknown Urine clean catch - Urine newton top Urine Culture - Preliminary Culture in progress. 02/12/21 10:24 Foot Left Gram Stain - Final 02/12/21 10:24 Foot Left Routine Culture - Preliminary Culture in progress. 02/12/21 10:24 Foot Left Anaerobic Culture - Preliminary Culture in progress. Quality Stroke Does the patient have a stroke diagnosis?: No VTE Prior VTE?: No VTE Risk Level:: Medical - moderate - high VTE Device Contraindication: N/A - Device Ordered VTE Drug Contraindication: N/A - Med Ordered
[2021-02-14] MEDS: Acetaminophen 325 MG TABLET 650 MG PO (09:35)
[2021-02-14] MEDS: oxyCODONE HCl Immed Release 5 MG TABLET PO (09:35)
[2021-02-14] MEDS: Gabapentin 300 MG CAPSULE PO (09:39)
--- NOTE | 2021-02-14 10:03 | P.OP_ITS ---
Operative Note Operative Note Date of Service: 02/14/21 Narrative: Angiogram report from [facility] Preoperative diagnosis: Atherosclerosis of left lower extremity with nonhealing ulcer Postoperative diagnosis: Same Procedure: 1. Ultrasound-guided right common femoral access 2. Aortogram with left lower extremity runoff Surgeon:John Peguero M.D., FACS, RPVI Chemical Analytical Sampler:None Anesthesia: Local with moderate conscious sedation. Total intraservice moderate sedation time was 40 minutes. I monitored the patient's level of consciousness and physiologic status continuously throughout the procedure. Specimens:none Drains:none Estimated blood loss: Less than 10 ml Implant: None Indications: 50-year-old with left lower extremity transmetatarsal amputation that has been nonhealing. Ultrasound findings were equivalent and unclear. She now presents for angiogram with possible intervention. The patient has signed the informed consent after reviewing risks, complications, benefits, and alternatives previously discussed with the patient. The patient was given the opportunity to ask any additional questions or voice any concerns. All questions were answered to the patient's satisfaction. Procedure in detail: Patient was brought to the angiography suite prior to which a time-out was called for patient identification and site verification. Bilateral groins were prepped and draped in the standard surgical fashion. Under ultrasound guidance rightcommon femoral was punctured with micro puncture needle and wire. Subsequently a precision 4 Brazilian sheath was then placed. Bentson wire was advanced to the level of the aorta. 4 Brazilian Flush catheter was brought up and parked at the level of the renal arteries. Aortogram was then undertaken. Catheter was brought down to the level of the iliac bifurcation. Iliacs were subsequently imaged. Catheter was then brought in up and over to the left side SFA. Runoff study was then undertaken. No intervention was indicated. Catheter wire sheath were removed. Direct pressure was held for 10 minutes. Patient tolerated the procedure well. Interpretation of films: 1. Ultrasound demonstrates appropriate femoral puncture. Image of which was saved. 2. Aortogram demonstrates appropriate caliber aorta. Minimal disease. Appropriate take-off of the renals. 3. Iliac images demonstrate normal caliber mild tortuosity 4. Left Leg Common femoral artery: Normal flow Profundus Femoris: No significant disease Superficial femoral artery: No significant disease Popliteal artery (p1,p2,p3): No significant disease Anterior tibial artery: Smaller and occludes towards the distal calf Peroneal artery: No significant disease Posterior tibial artery: No significant disease Dorsalis pedis/plantar arch: Completion arch present Conclusion: 1. Successful diagnostic angiogram. Good enough flow to heal the foot. 2. Anticoagulation status: No change This note is constructed using voice recognition software. While every effort has been made to ensure accuracy, slitter and cutter operator errors may have been included. Thank you for allowing me to participate in the care of your patient. Yours sincerely, John Peguero MD, FACS, R.P.V.I.
--- NOTE | 2021-02-14 11:10 | PM.DS ---
DS: Providers Provider Date of Service: 02/14/21 <Savana Pablo NP - Last Filed: 02/14/21 16:30> Date of admission: 02/11/21 17:10 <Savana Pablo NP - Last Filed: 02/14/21 16:30> Primary care physician: Farhana Ellison MD <Savana Pablo NP - Last Filed: 02/14/21 16:30> Consults: 02/11/21 16:36 Consult to Infectious Diseases Routine Consulting Provider: Reanna Graves Reason for consultation: foot abscess, hx VRE Has provider been notified: Yes 02/11/21 16:47 Consult to Infectious Diseases Routine Consulting Provider: Reanna Graves Reason for consultation: DM osteom Consult to Vascular Surgery Routine Consulting Provider: John Peguero Reason for consultation: dm osteomy <Savana Pablo NP - Last Filed: 02/14/21 16:30> Attending physician on discharge: Pal Bernard <Savana Pablo NP - Last Filed: 02/14/21 16:30> Discharging clinician: Savana Pablo <Savana Pablo NP - Last Filed: 02/14/21 16:30> DS: Diagnosis Discharge Diagnosis (1) PAD (peripheral artery disease): Status: Acute <Savana Pablo NP - Last Filed: 02/14/21 16:30> (2) Diabetic foot infection: Status: Acute <Savana Pablo NP - Last Filed: 02/14/21 16:30> (3) Osteomyelitis: Status: Acute <Savana Pablo NP - Last Filed: 02/14/21 16:30> DS: Summary Hospital Course Hospital Course: HP as per admitting provider 50yo F with uncontrolled DM2 [A1c 10.6 12/29/20], history of L TMA with nonhealing wound.? 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 [id number] amputation was recommended then but she refused.? She was treated with oral linezolid and amoxicillin-clavulanate for 4 weeks; she had previously developed vancomycin-induced ATN.? She presents today with worsening blackening of the eschar at the site of the ulcer on the L TMA stump noted by her VNA.? Foul-smelling drainage was also noted.? She is followed by [facility].? No fever, chills, myalgias, nausea, or vomiting.? She has dense neuropathy and no pain at the wound. She had leukocytosis without other SIRS criteria.? Lactate was elevated, however.? CT scan showed abscess below the osteoetomy and cuneiform and some areas that appeared to be osteomyelitis.? She was started on linezolid.? She also got 10 units of IV insulin for BG 367 . Osteomyelitis secondary to diabetic foot infection. MRI showed possible osteomyelitis. Seen by vascular surgery for debridement, no abscess seen on exam, Treated with IV Zyvox. She had aortogram of left lower extremity. Good flow shown. She has no complaints of pain. She will continue 6 weeks of oral Zyvox and follow up with infectious disease provider as an outpatient. UTI. Treated with Rocephin while inpatient. Home with ceftin. Attending Attestation: Date of service is: 02/14/21 Patient seen and examined on the day of discharge. Case has been discussed with the mid-level provider. I agree with the discharge summary and plan as documented above by the mid-level provider. <Savana Pablo NP - Last Filed: 02/14/21 16:30> Time Spent with Patient Time attestation: Total time spent providing and/or coordinating discharge services: <Savana Pablo NP - Last Filed: 02/14/21 16:30> Discharge coordination time: Greater than 30 minutes <Savana Pablo NP - Last Filed: 02/14/21 16:30> Quality: Stroke Does the patient have a stroke diagnosis?: No <Savana Pablo NP - Last Filed: 02/14/21 16:30> Physical Exam Vital Signs: Vital Signs: Last Vital Signs Temp 97.2 F 02/14/21 10:35 Pulse 73 02/14/21 10:35 Resp 16 02/14/21 10:35 BP 160/76 H 02/14/21 10:35 Pulse Ox 96 02/14/21 10:35 Body Mass Index 36.7 <Savana Pablo NP - Last Filed: 02/14/21 16:30> Appearing in no acute distress lung sounds are clear to auscultation heart regular rate rhythm, clear S1, S2 positive bowel sounds, abdomen is soft, nontender neuro patient is alert x3, no focal deficits <Savana Pablo NP - Last Filed: 02/14/21 16:30> DS: Data Data Completed and Pending Labs on day of discharge: Laboratory Results - last 24 hr 02/13/21 02/13/21 02/13/21 11:06 16:11 20:07 POC Glucose 159 H 163 H 249 H 02/14/21 06:48 POC Glucose 218 H Preliminary micro results at discharge 02/12/21 10:24 Routine Culture - Preliminary Foot Left Anaerobic Culture - Preliminary Culture in progress. 02/11/21 14:37 Blood Culture - Preliminary Blood - Venous No growth after 48 hours. 02/11/21 14:11 Blood Culture - Preliminary Blood - Venous No growth after 48 hours. 02/12/21 Unknown Urine Culture - Preliminary Urine clean catch - Urine newton top Culture in progress. <Savana Pablo NP - Last Filed: 02/14/21 16:30> Discharge Plan Discharge Anticipated Discharge Date/Time: 02/14/21 11:01 <Savana Pablo NP - Last Filed: 02/14/21 16:30> Patient Disposition: Home Health Service <Savana Pablo NP - Last Filed: 02/14/21 16:30> Discharge Diagnosis: Osteomyelitis UTI <Savana Pablo NP - Last Filed: 02/14/21 16:30> Osteomyelitis UTI <Pal Bernard MD - Last Filed: 02/15/21 16:13> Referrals: Tyesha ESPINO [Outside] - 1 Day (RESUMPTION OF 4 X WEEK WOUND CARE) Farhana Ellison MD [Primary Care Provider] - 1 Week Reanna Graves MD [Physician] - 6 Weeks <Savana Pablo NP - Last Filed: 02/14/21 16:30> Discharge Medications: New linezolid [Zyvox] 600 mg tablet 600 mg PO BID Qty: 84 RF: 0 cefuroxime axetil 250 mg tablet 250 mg PO BID Qty: 10 RF: 0 Continued mecobalamin (vitamin B12) 1,000 mcg tablet,disintegrating 1,000 mcg sublingual DAILY Qty: 30 RF: 2 thiamine HCl (vitamin B1) 100 mg tablet 100 mg PO DAILY Qty: 30 RF: 2 Lantus U-100 Insulin 50 units BEDTIME RF: 0 insulin aspart U-100 [Novolog U-100 Insulin aspart] 100 unit/mL solution 20 unit subcut TIDAC RF: 0 atorvastatin 80 mg tablet 1 tab PO BEDTIME RF: 0 gabapentin 300 mg capsule 1 cap PO TID RF: 0 amlodipine 10 mg tablet 1 tab PO DAILY RF: 0 Plavix tablet 75 mg PO DAILY RF: 0 <Savana Pablo NP - Last Filed: 02/14/21 16:30> Discharge Orders: Discharge Order (Routine); Ordered 02/14/21 Ordered By: Savana Pablo <Savana Pablo NP - Last Filed: 02/14/21 16:30> Diet: advance to usual diet <Savana Pablo NP - Last Filed: 02/14/21 16:30> advance to usual diet <Pal Bernard MD - Last Filed: 02/15/21 16:13> Activity on Discharge: As tolerated <Savana Pablo NP - Last Filed: 02/14/21 16:30> As tolerated <Pal Bernard MD - Last Filed: 02/15/21 16:13> Stand Alone Forms: Patient Portal Discharge page <Savana Pablo NP - Last Filed: 02/14/21 16:30> Care Plan Goals: Resolution of osteomyelitis <Savana Pablo NP - Last Filed: 02/14/21 16:30> Health Concerns: Osteomyelitis UTI <Savana Pablo NP - Last Filed: 02/14/21 16:30> Plan of Treatment: Continue Zyvox for 6 weeks and follow up with Dr. Graves as an outpatient Follow up in the wound care center for wound care silver alginate to wound bed, covered with non woven gauze and roll gauze daily <Savana Pablo NP - Last Filed: 02/14/21 16:30> Assessment: See discharge summary <Savana Pablo NP - Last Filed: 02/14/21 16:30> Discharge Date/Time: 02/14/21 16:30 <Savana Pablo NP - Last Filed: 02/14/21 16:30>
[2021-02-14 11:36] LABS: Glucose, Whole Blood 253 mg/dL (60-115)
[2021-02-14] MEDS: Insulin Lispro 100 UNIT/ML 3 ML VIAL SUBCUT (12:18)
[2021-02-14] MEDS: Insulin Lispro 100 UNIT/ML 3 ML VIAL 20 UNIT SUBCUT (12:18)
--- NOTE | 2021-02-14 12:46 | MHC.CM.PN ---
PT DISCHARGING HOME W/RESUMPTION OF [facility] 4XWK FOR WOUND CARE, [facility] AND [employer] [facility] THROUGH [employer] [facility] FOR TRANSPORT.
--- NOTE | 2021-02-14 15:22 | PC.NURSE ---
right groin dermabond drsg CDI ,no redness ,no swelling
== END 2021-02-14 16:30 | disposition home health service (06) | DRG 349 ==
LOC: HO.ED 16:52 → HO.EDOVER 17:41 → HO.S3 18:27
PROVIDERS: Physician Assistant; Surgery Vascular Surgery; Admitting Provider Family Medicine; Emergency Provider Emergency Medicine; PCP Internal Medicine; Visit Provider Nurse Practitioner Acute Care
PROC: B41DZZZ Fluoroscopy of Aorta and Bilateral Lower Extremity Arteries (ICD-10-PCS; principal; 2021-02-14 07:30)
DX: T87.44 Infection of amputation stump, left lower extremity (principal); E11.40 Type 2 diabetes mellitus with diabetic neuropathy, unspecified; E11.51 Type 2 diabetes mellitus with diabetic peripheral angiopathy without gangrene; E11.69 Type 2 diabetes mellitus with other specified complication; I11.0 Hypertensive heart disease with heart failure; I50.32 Chronic diastolic (congestive) heart failure; M86.9 Osteomyelitis, unspecified; N39.0 Urinary tract infection, site not specified; L97.526 Non-pressure chronic ulcer of other part of left foot with bone involvement without evidence of necrosis; I70.245 Atherosclerosis of native arteries of left leg with ulceration of other part of foot; E78.5 Hyperlipidemia, unspecified; Z20.822 Contact with and (suspected) exposure to COVID-19; Z79.02 Long term (current) use of antithrombotics/antiplatelets; Z79.4 Long term (current) use of insulin; Z79.899 Other long term (current) drug therapy
CPT/HCPCS: 36246; 36247; 36415; 73630; 73701; 73720; 75630; 76937; 80048; 80076; 81001; 82947; 83605; 83735; 85025; 85027; 85610; 85652; 85730; 86140; 87040; 87071; 87073; 87077; 87086; 87088; 87147; 87186; 87205; 87635; 93923; 93925; 96361; 96365; 99152; 99153; 99285; 99291; A9585; C1760; C1769; C1887; C1894; J0696; J1650; J2020; Q9967

== ENCOUNTER → 2021-03-06 14:46 | Outpatient (BNVA) | payer OTHER, SELFPAY | PROVIDERS: PCP Internal Medicine; Visit Provider Surgery Vascular Surgery | DX: E11.621 Type 2 diabetes mellitus with foot ulcer (principal); E11.65 Type 2 diabetes mellitus with hyperglycemia; E11.42 Type 2 diabetes mellitus with diabetic polyneuropathy; E11.69 Type 2 diabetes mellitus with other specified complication; I73.9 Peripheral vascular disease, unspecified; E78.00 Pure hypercholesterolemia, unspecified; E78.5 Hyperlipidemia, unspecified; E53.8 Deficiency of other specified B group vitamins; E66.01 Morbid (severe) obesity due to excess calories; Z68.38 Body mass index [BMI] 38.0-38.9, adult; Z83.3 Family history of diabetes mellitus; Z82.49 Family history of ischemic heart disease and other diseases of the circulatory system; Z79.4 Long term (current) use of insulin; Z89.432 Acquired absence of left foot; Z16.11 Resistance to penicillins; M86.672 Other chronic osteomyelitis, left ankle and foot | CPT/HCPCS: 99212 ==

== ENCOUNTER 2021-05-24 10:59 | Outpatient (REF) | payer OTHER, SELFPAY ==
[2021-05-24 12:06] LABS: Estimated Average Glucose 260 mg/dL; Hemoglobin A1c % 10.7 %
[2021-05-24 12:26] LABS: Alanine Aminotransferase 14 U/L (0-31); Albumin Level 3.5 g/dL (3.5-5.0); Alkaline Phosphatase 123 U/L (39-117); Anion Gap 14 (12-20); Aspartate Amino Transferase 19 U/L (5-31); Bilirubin Total 0.3 mg/dL (0.0-1.0); Blood Urea Nitrogen 14 mg/dL (9-16); Calcium 9.6 mg/dL (8.4-10.2); Carbon Dioxide 26 mmol/L (22-29); Chloride 104 mmol/L (96-108); Cholesterol 258 mg/dL; Estimated Glomerular Filt Rate > 60; Glucose Random 197 mg/dL (60-115); HDL Cholesterol 49 mg/dL; LDL Cholesterol Calculated 180 mg/dl; Potassium 4.2 mmol/L (3.3-5.1); Sodium 140 mmol/L (135-145); Total Protein 6.9 g/dL (6.5-8.0); Triglycerides 145 mg/dL
[2021-05-24 13:04] LABS: Creatinine Urine 87.13 mg/dL
== END 2021-05-24 11:00 | disposition home or self-care (01) ==
LOC: HO.LAB 10:59
PROVIDERS: PCP Internal Medicine; Visit Provider Internal Medicine
DX: E11.65 Type 2 diabetes mellitus with hyperglycemia (principal); I10 Essential (primary) hypertension; E78.2 Mixed hyperlipidemia; R80.8 Other proteinuria
CPT/HCPCS: 36415; 80053; 80061; 82043; 83036

== ENCOUNTER 2021-06-09 06:45 | Emergency (ER) | payer OTHER, SELFPAY ==
--- NOTE | ~2021-06-09 | XR_ITS ---
EXAMINATION: XR HAND, RIGHT CLINICAL INFORMATION: Pain after fall COMPARISON: None TECHNIQUE: PA, lateral, and oblique views of the right hand. FINDINGS: Visualized portion of the distal radius and ulna demonstrate no fracture. Carpal rows are well-maintained. No carpal, metacarpal or phalangeal fracture. No focal soft tissue swelling of the hand. No radiopaque foreign body. Vascular calcifications noted. XR/XR hand RT 2V IMPRESSION: No fracture.
[2021-06-09 07:01] VITALS: BP 159/78; PULSE 83; RESP 20; TEMP 36.9; O2SAT 100; BMI 36.7
--- NOTE | 2021-06-09 07:40 | ED_ITS ---
HPI - Fall General Chief Complaint: Fall Stated Complaint: fall Time Seen by Provider: 06/09/21 07:39 Source: patient and review nurse Mode of arrival: ambulatory Limitations: no limitations History of Present Illness HPI Narrative: 51-year-old female came in for evaluation of right hand injury after a fall. Patient fell 2 steps of stairs yesterday morning landing on her right side causing pain in her right hand, no head injury or LOC, no neck pain, otherwise no other injuries. Patient is right handed. Related Data Home Medications Medication Instructions Recorded Confirmed Lantus U-100 Insulin 50 units BEDTIME 03/19/20 02/11/21 amlodipine 10 mg tablet 1 tab PO DAILY 03/19/20 02/11/21 atorvastatin 80 mg tablet 1 tab PO BEDTIME 03/19/20 02/11/21 gabapentin 300 mg capsule 1 cap PO TID 03/19/20 02/11/21 insulin aspart U-100 100 unit/mL 20 unit SUBCUT TIDAC 03/19/20 02/11/21 subcutaneous solution (Novolog U-100 Insulin aspart) Plavix 75 mg PO DAILY cap 09/06/20 02/11/21 Previous Rx's Medication Instructions Recorded mecobalamin (vitamin B12) 1,000 1,000 mcg SUBLINGUAL DAILY #30 tab 10/30/20 mcg disintegrating tablet,sublingual thiamine HCl (vitamin B1) 100 mg 100 mg PO DAILY #30 tab 10/30/20 tablet cefuroxime axetil 250 mg tablet 250 mg PO BID #10 tab 02/14/21 linezolid 600 mg tablet (Zyvox) 600 mg PO BID #84 tab 02/14/21 Allergies Allergy/AdvReac Type Severity Reaction Status Date / Time No Known Allergies Allergy Verified 03/06/21 14:48 [No Known Allergies*] Review of Systems Review of Systems: All other systems are reviewed and are negative Constitutional: Reports as per HPI and Reports no additional constitutional complaints Eyes: Reports as per HPI and Reports no additional eye complaints Reports system reviewed and no additional complaints, except as documented Cardiovascular: Reports as per HPI and Reports no additional cardiovascular complaints Respiratory: Reports as per HPI and Reports no additional respiratory complaints Gastrointestinal: Reports as per HPI and Reports no additional gastrointestinal complaints Genitourinary: Reports no additional female genitourinary complaints Musculoskeletal: Reports no additional musculoskeletal complaints Skin/Breast: Reports system reviewed and no additional complaints, except as docu Psychiatric: Reports no additional psychiatric complaints Endocrine: Reports no additional endocrine complaints Hematologic/Lymphatic: Reports no additional hematologic/lymphatic complaints Allergic/Immunologic: Reports no additional allergic/immunologic complaints Reports system reviewed and no additional complaints, except as documented and Reports Abnormal speech present [facility] Past Medical History Medical History Abscess Amputated toe of left foot Amputation of left foot BMI 39.0-39.9,adult Chronic heart failure with preserved ejection fraction (HFpEF) Chronic osteomyelitis of foot Diabetes Diabetic foot infection Diabetic foot infection Essential hypertension High cholesterol Hyperlipidemia Hypertension Insulin dependent diabetes mellitus Neuropathy Obesity Osteomyelitis PAD (peripheral artery disease) Type 2 diabetes mellitus with unspecified complications Uncontrolled diabetes mellitus Vitamin B12 deficiency VRE (vancomycin resistant enterococcus) culture positive Surgical History H/O spinal fusion History of section History of tubal ligation Family History Family History Mother Diabetes Hypertension Disk prolapse Father Diabetes Hypertension Sister No problems noted. Brother No problems noted. Daughter No problems noted. Son No problems noted. Social History Social History Household Members: Spouse Household Members Other:: Housing: Apartment Do you presently have visiting nurse or other home services: Yes Alcohol intake: never Patient Tobacco Use Status: Never used Tobacco Advance Directives: Yes Advance Directives on File: Yes Advance Directives Date on File: 02/15/21 service: No Current occupational status: unemployed Physical Exam Vital Signs: Vital Signs: Last Vital Signs Temp 98.4 F 06/09/21 07:01 Pulse 83 06/09/21 07:01 Resp 20 06/09/21 07:01 BP 159/78 H 06/09/21 07:01 Pulse Ox 100 06/09/21 07:01 BMI result Body Mass Index 36.7 Vital signs have been reviewed as appeared to be correct. Blood pressure normal. Heart rate normal. Respiration rate normal. Temperature normal. Oxygen saturation normal. Appearance: Alert. Oriented X3. No acute distress. Head: Normal external exam. Normocephalic. Atraumatic. No Jung signs noted. No raccoon eyes noted Eyes: PERRLA. EOMI. Conjunctiva and sclera normal. Eyelids normal. ENT: TM's Normal. Pharynx normal. Uvula midline. Moist mucous membranes. No trismus noted. No drooling noted. No muffled voice noted. Neck: Normal inspection. Neck supple. FROM. No adenopathy. Thyroid Normal. No meningeal signs. No neck mass noted. CVS: Normal heart rate and rhythm. Heart sound normal. No murmurs noted. Pulses normal throughout. Respiratory: No respiratory distress. Painless inspiration. Breath sounds normal. No wheezes/rales/rhonchi noted. Chest nontender. No accessory muscle usage noted or decreased air movement noted. Abdomen: Soft and nontender. Bowel sounds normal in all 4 quadrants. No distention noted. No organomegaly noted. No visible injury noted. Back: No CVA tenderness. Full range of motion noted. Skin: Skin warm and dry. Normal skin color. Normal skin turgor. No rashes/lesions/lacerations noted. Extremities: Right hand exam: Tenderness over for send 5th metacarpal area with mild swelling, no apparent deformity. Neuro: Oriented X 3. Cranial nerve exam: II-XII are grossly intact No motor deficit. No sensory deficit. Reflexes normal. Course Course Course Narrative: Assessment and plan. 51-year-old female status post fall with right hand injury. Right hand contusion. Patient has left foot amputation secondary to diabetes complication patient was instructed to closely manage her diabetes with her PCP. MDM - Fall Imaging Data Right hand x-ray: Attestation: I personally reviewed and interpreted this imaging study as follows: Radiologist's impression: No fracture Discharge Plan Discharge Clinical Impression: Contusion of hand, right Patient Disposition: Home, Self-Care Instructions: Contusion in Adults (ED) Additional Instructions: Take ibuprofen 200 mg tablet ([id number]) every 6 hours if needed for pain. Apply ice on your right hand. Prescriptions: No Action mecobalamin (vitamin B12) 1,000 mcg tablet,disintegrating 1,000 mcg sublingual DAILY Qty: 30 2RF Rx Instructions: place tablet under tongue and allow to dissolve for at least30 secs before swallowing thiamine HCl (vitamin B1) 100 mg tablet 100 mg PO DAILY Qty: 30 2RF Lantus U-100 Insulin 50 units BEDTIME 0RF insulin aspart U-100 [Novolog U-100 Insulin aspart] 100 unit/mL solution 20 unit subcut TIDAC 0RF atorvastatin 80 mg tablet 1 tab PO BEDTIME 0RF gabapentin 300 mg capsule 1 cap PO TID 0RF amlodipine 10 mg tablet 1 tab PO DAILY 0RF linezolid [Zyvox] 600 mg tablet 600 mg PO BID Qty: 84 0RF cefuroxime axetil 250 mg tablet 250 mg PO BID Qty: 10 0RF Plavix tablet 75 mg PO DAILY 0RF Rx Instructions: .Route Referrals: Farhana Ellison MD [Primary Care Provider] - 2 days
[2021-06-09] MEDS: Ibuprofen 800 MG TABLET PO (08:11)
[2021-06-09 09:24] VITALS: RESP 17
== END 2021-06-09 09:24 | disposition home or self-care (01) ==
PROVIDERS: Emergency Provider Emergency Medicine; PCP Internal Medicine
DX: S60.221A Contusion of right hand, initial encounter (principal); W10.8XXA Fall (on) (from) other stairs and steps, initial encounter; E11.9 Type 2 diabetes mellitus without complications; I10 Essential (primary) hypertension; E78.5 Hyperlipidemia, unspecified; Y93.9 Activity, unspecified; Y92.9 Unspecified place or not applicable; Y99.9 Unspecified external cause status; Z89.432 Acquired absence of left foot; Z79.4 Long term (current) use of insulin; Z79.02 Long term (current) use of antithrombotics/antiplatelets; Z79.01 Long term (current) use of anticoagulants
CPT/HCPCS: 73120; 99283

== ENCOUNTER 2021-06-16 21:14 | Inpatient (IN) | payer OTHER, SELFPAY ==
--- NOTE | ~2021-06-16 | XR_ITS ---
EXAMINATION: XR FOOT, RIGHT CLINICAL INFORMATION: Diabetic foot COMPARISON: None TECHNIQUE: AP, lateral, and oblique views of the right foot. FINDINGS: Diffuse vascular calcifications. No acute fracture or dislocation. No periosteal reaction or erosion to suggest active osteomyelitis. XR/XR foot RT 2V IMPRESSION: No acute osseous abnormality. MRI would be more sensitive if osteomyelitis is suspected.
--- NOTE | ~2021-06-16 | US_ITS ---
EXAMINATION: US DUPLEX LOWER EXTREMITY ARTERY LIMITED, RIGHT CLINICAL INFORMATION: Right lower extremity pain, ulcer and skin changes. History of hypertension, hyperlipidemia and diabetes. COMPARISON: Noninvasive assessment of the arteries of both lower extremities done on 02/12/2021. TECHNIQUE: 2-D imaging, Doppler spectral analysis and color flow Doppler imaging was performed of the RIGHT lower extremity artery. FINDINGS: 2-D imaging and color Doppler evaluation of the right arterial tree shows evidence of this and wall calcification especially at mid to distal part of the SFA. The peak systolic velocities (Peak systolic velocity of less than 100 cm/s is considered to be normal for [place] lower extremity arterial tree), and the arterial waveform (triphasic, biphasic, monophasic) are described as below: The peak systolic velocities within the right lower extremity are described below: A. Right lower extremity: 1. Common femoral artery-176, previously 147. 2. Profunda artery-95, previously 19 2 3. Proximal femoral artery-125, previously 82 4. Mid femoral artery-119, previously 111 5. Distal femoral artery-105, previously 112 6. Popliteal artery-91, previously 70 7. Posterior tibial artery-77, previously 119 US/US arterial duplex LE RT IMPRESSION: No evidence of significant arterial obstruction is present within the visualized arterial tree from the level of the groin to the calf showing no significant change since most recent prior study dated 02/12/2021.
--- NOTE | ~2021-06-16 | MR_ITS ---
EXAMINATION: MRI RIGHT FOOT WITHOUT AND WITH CONTRAST. CLINICAL INFORMATION: Evaluate for osteomyelitis. COMPARISON: X-ray right foot 06/16/2021 TECHNIQUE: Imaging of the right foot without and with contrast. 10 mL Gadavist. FINDINGS: Soft tissue abnormality around the toes. This includes increased T2 signal in the skin and soft tissues circumferentially around the fourth toe; in the fifth toe more prominent dorsally; in the second and third toes more prominent on the plantar aspect. Findings indicative of cellulitis. No organized fluid collections or abscess is seen.. The T1 signal in the toes is maintained. No significant edema is evident. No no findings to suggest definite osteomyelitis. No evidence of osteomyelitis otherwise in the remainder of the bones. Visualized tendons are intact. No evidence of tenosynovitis. There is increased signal and atrophy of the intrinsic muscles of foot, probably reflecting sequela of denervation. Visualized plantar aponeurosis appears unremarkable.. MR/MR foot RT wo/w con IMPRESSION: 1. Findings in the soft tissues of the second-fifth toes, suggestive of cellulitis. No organized fluid collection or abscess is seen in the soft tissues. 2. No convincing evidence of osteomyelitis at this stage. Follow-up imaging for reassessment as clinically warranted. 3. Findings in the intrinsic muscles of the foot, probably reflecting sequela of denervation.
[2021-06-16 21:18] VITALS: BP 181/88; PULSE 96; RESP 16; TEMP 36.6; O2SAT 100; BMI 36.7
[2021-06-16 21:38] LABS: MANUAL DIFF FLAG NO
[2021-06-16 21:50] LABS: Basophils Absolute Auto 0.1 X10*3/uL (0.0-0.2); Basophils Percent Auto 0.7 % (0-2); Eosinophils Absolute Auto 0.4 X10*3/uL (0.0-0.4); Eosinophils Percent Auto 2.4 % (0-4); Hemoglobin 12.7 g/dl (12.0-16.0); Imm Gran Abs Auto 0.08 X10*3/uL (0.00-0.03); Imm Gran Pct Auto 0.5 % (0.0-0.4); Lymphocytes Absolute Auto 3.5 X10*3/uL (1.2-4.9); Lymphocytes Percent Auto 22.3 % (20-40); Mean Corpuscular HGB Conc 31.8 g/dl (31.0-35.0); Mean Corpuscular Hemoglobin 26.3 pg (27.0-33.0); Mean Platelet Volume 11.1 fL (9.4-12.3); Monocytes Absolute Auto 1.3 X10*3/uL (0.1-1.2); Monocytes Percent Auto 8.2 % (2-11); Neutrophils Absolute Auto 10.2 x10*3/uL (2.0-8.3); Neutrophils Percent Auto 65.9 % (45-73); Platelet Count 435 X10*3/uL (160-400); Red Blood Count 4.82 X10*6/uL (4.20-5.50); Red Cell Distribution Width 13.1 % (11.0-16.0); White Blood Count 15.5 X10*3/uL (4.8-10.8)
[2021-06-16 22:00] VITALS: BP 178/89; PULSE 90; RESP 16; TEMP 36.6; O2SAT 98
[2021-06-16 22:02] LABS: Alanine Aminotransferase 21 U/L (0-31); Albumin Level 3.6 g/dL (3.5-5.0); Alkaline Phosphatase 150 U/L (39-117); Anion Gap 17 (12-20); Aspartate Amino Transferase 30 U/L (5-31); Bilirubin Total 0.3 mg/dL (0.0-1.0); Blood Urea Nitrogen 24 mg/dL (9-16); COVID-19 Test Negative (Negative); Calcium 9.7 mg/dL (8.4-10.2); Carbon Dioxide 24 mmol/L (22-29); Chloride 100 mmol/L (96-108); Creatinine Clr Calc Pharmacy 63.7; Estimated Glomerular Filt Rate 52; Glucose Random 238 mg/dL (60-115); Potassium 4.2 mmol/L (3.3-5.1); Sodium 137 mmol/L (135-145); Total Protein 7.2 g/dL (6.5-8.0)
--- NOTE | 2021-06-16 22:12 | ED_ITS ---
HPI - Extremity Problem General Chief complaint: Skin/Abscess/Foreign Body Stated complaint: diabetic, foot pain? Time Seen by Provider: 06/16/21 22:11 Source: patient Mode of arrival: ambulatory Limitations: no limitations History of Present Illness HPI Narrative: Patient diabetic with diabetic neuropathy, retinopathy status post left foot metatarsal amputation comes here for few days of right toes infection present is not sure for how long as her vision is bad her friend came reporting the socks on and noticed the redness and discoloration off the basis toes of right foot no fever no chills patient blood sugar under control Related Data Home Medications Medication Instructions Recorded Confirmed Lantus U-100 Insulin 50 units BEDTIME 03/19/20 02/11/21 amlodipine 10 mg tablet 1 tab PO DAILY 03/19/20 02/11/21 atorvastatin 80 mg tablet 1 tab PO BEDTIME 03/19/20 02/11/21 gabapentin 300 mg capsule 1 cap PO TID 03/19/20 02/11/21 insulin aspart U-100 100 unit/mL 20 unit SUBCUT TIDAC 03/19/20 02/11/21 subcutaneous solution (Novolog U-100 Insulin aspart) Plavix 75 mg PO DAILY cap 09/06/20 02/11/21 Previous Rx's Medication Instructions Recorded mecobalamin (vitamin B12) 1,000 1,000 mcg SUBLINGUAL DAILY #30 tab 10/30/20 mcg disintegrating tablet,sublingual thiamine HCl (vitamin B1) 100 mg 100 mg PO DAILY #30 tab 10/30/20 tablet cefuroxime axetil 250 mg tablet 250 mg PO BID #10 tab 02/14/21 linezolid 600 mg tablet (Zyvox) 600 mg PO BID #84 tab 02/14/21 Allergies Allergy/AdvReac Type Severity Reaction Status Date / Time No Known Allergies Allergy Verified 06/16/21 21:17 [No Known Allergies*] Review of Systems Review of Systems: Yes all other systems are reviewed and are negative PMFSH Past Medical History Medical History Abscess Amputated toe of left foot Amputation of left foot BMI 39.0-39.9,adult Chronic heart failure with preserved ejection fraction (HFpEF) Chronic osteomyelitis of foot Diabetes Diabetic foot infection Diabetic foot infection Essential hypertension High cholesterol Hyperlipidemia Hypertension Insulin dependent diabetes mellitus Neuropathy Obesity Osteomyelitis PAD (peripheral artery disease) Type 2 diabetes mellitus with unspecified complications Uncontrolled diabetes mellitus Vitamin B12 deficiency VRE (vancomycin resistant enterococcus) culture positive Surgical History H/O spinal fusion History of section History of tubal ligation Family History Family History Mother Diabetes Hypertension Disk prolapse Father Diabetes Hypertension Sister No problems noted. Brother No problems noted. Daughter No problems noted. Son No problems noted. Social History Social History Household Members: Spouse Household Members Other:: Housing: Apartment Do you presently have visiting nurse or other home services: Yes Alcohol intake: never Patient Tobacco Use Status: Never used Tobacco Advance Directives: Yes Advance Directives on File: Yes Advance Directives Date on File: 02/15/21 service: No Current occupational status: unemployed Physical Exam Vital Signs: Vital Signs: Last Vital Signs Temp 97.9 F 06/16/21 22:00 Pulse 90 06/16/21 22:00 Resp 16 06/16/21 22:00 BP 178/89 H 06/16/21 22:00 Pulse Ox 98 06/16/21 22:00 BMI result Body Mass Index 36.7 Appearance: Alert. Oriented X3. No acute distress. Eyes: PERRLA, No Nystagmus legally blind ENT: Pharynx normal. Oral Mucosa moist Neck: Normal inspection. Neck supple. CVS: Normal heart rate and rhythm. Pulses normal. Respiratory: No respiratory distress. Equal air entry bilateral, no wheezing/rales/rhonchi Abdomen: Soft and nontender. Bowel sounds are present, no mass palpable, no CVA tenderness Skin: Skin warm and dry. Normal skin color. Normal skin turgor. Extremities: No lower extremity edema. No calf tenderness, right foot infected toes specially at the base with erythema, left foot with metatarsal amputation Neuro: Oriented X 3. No motor deficit. Decreased sensory to light touch and pinprick lower extremity MDM - Extremity (Nontraumatic) MDM Narrative Medical decision making narrative: Patient with R diabetic foot x-ray negative for bony erosions will admit patient for IV antibiotics Lab Data Attestation: I reviewed the patient's lab results. Result diagrams: 06/16/21 21:34 06/16/21 21:34 Labs: Lab Results 06/16/21 06/16/21 06/16/21 Range/Units 21:34 21:34 21:34 WBC 15.5 H (4.8-10.8) X10*3/uL RBC 4.82 (4.20-5.50) X10*6/uL Hgb 12.7 (12.0-16.0) g/dl Hct 40.0 (37.0-47.0) % MCV 83.0 (80.0-98.0) fL MCH 26.3 L (27.0-33.0) pg MCHC 31.8 (31.0-35.0) g/dl RDW 13.1 (11.0-16.0) % Plt Count 435 H (160-400) X10*3/uL MPV 11.1 (9.4-12.3) fL Immature Gran % (Auto) 0.5 H (0.0-0.4) % Neut % (Auto) 65.9 (45-73) % Lymph % (Auto) 22.3 (20-40) % [place] % (Auto) 8.2 (2-11) % Eos % (Auto) 2.4 (0-4) % Baso % (Auto) 0.7 (0-2) % Lymph # (Auto) 3.5 (1.2-4.9) X10*3/uL [place] # (Auto) 1.3 H (0.1-1.2) X10*3/uL Eos # (Auto) 0.4 (0.0-0.4) X10*3/uL Baso # (Auto) 0.1 (0.0-0.2) X10*3/uL Abs Immat Gran (auto) 0.08 H (0.00-0.03) X10*3/uL Absolute Neuts (auto) 10.2 H (2.0-8.3) x10*3/uL Absolute Nucleated RBC 0.000 (0.0-0.012) X10*3/uL Nucleated RBC % (auto) 0.0 (0.0-0.2) /100WBC Sodium 137 (135-145) mmol/L Potassium 4.2 (3.3-5.1) mmol/L Chloride 100 (96-108) mmol/L Carbon Dioxide 24 (22-29) mmol/L Anion Gap 17 (12-20) BUN 24 H D (9-16) mg/dL Creatinine 1.11 (0.5-1.4) mg/dL Estim Creat Clear Calc 63.7 Estimated GFR 52 Random Glucose 238 H (60-115) mg/dL Lactic Acid (0.5-2.0) mmol/L Calcium 9.7 (8.4-10.2) mg/dL Total Bilirubin 0.3 (0.0-1.0) mg/dL AST 30 D (5-31) U/L ALT 21 (0-31) U/L Alkaline Phosphatase 150 H D (39-117) U/L Total Protein 7.2 (6.5-8.0) g/dL Albumin 3.6 (3.5-5.0) g/dL COVID-19 ([facility]) Negative (Negative) COVID-19 Clin Com See Note 06/16/21 Range/Units 22:36 WBC (4.8-10.8) X10*3/uL RBC (4.20-5.50) X10*6/uL Hgb (12.0-16.0) g/dl Hct (37.0-47.0) % MCV (80.0-98.0) fL MCH (27.0-33.0) pg MCHC (31.0-35.0) g/dl RDW (11.0-16.0) % Plt Count (160-400) X10*3/uL MPV (9.4-12.3) fL Immature Gran % (Auto) (0.0-0.4) % Neut % (Auto) (45-73) % Lymph % (Auto) (20-40) % [place] % (Auto) (2-11) % Eos % (Auto) (0-4) % Baso % (Auto) (0-2) % Lymph # (Auto) (1.2-4.9) X10*3/uL [place] # (Auto) (0.1-1.2) X10*3/uL Eos # (Auto) (0.0-0.4) X10*3/uL Baso # (Auto) (0.0-0.2) X10*3/uL Abs Immat Gran (auto) (0.00-0.03) X10*3/uL Absolute Neuts (auto) (2.0-8.3) x10*3/uL Absolute Nucleated RBC (0.0-0.012) X10*3/uL Nucleated RBC % (auto) (0.0-0.2) /100WBC Sodium (135-145) mmol/L Potassium (3.3-5.1) mmol/L Chloride (96-108) mmol/L Carbon Dioxide (22-29) mmol/L Anion Gap (12-20) BUN (9-16) mg/dL Creatinine (0.5-1.4) mg/dL Estim Creat Clear Calc Estimated GFR Random Glucose (60-115) mg/dL Lactic Acid 1.0 (0.5-2.0) mmol/L Calcium (8.4-10.2) mg/dL Total Bilirubin (0.0-1.0) mg/dL AST (5-31) U/L ALT (0-31) U/L Alkaline Phosphatase (39-117) U/L Total Protein (6.5-8.0) g/dL Albumin (3.5-5.0) g/dL COVID-19 ([facility]) (Negative) COVID-19 Clin Com Discharge Plan Discharge Clinical Impression: Diabetic infection of right foot Patient Disposition: Admitted As Inpatient
[2021-06-16] MEDS: Piperacillin Sodium/Tazobactam 3.375 GM in 0.9 % Sodium Chloride 50 ML IV (22:42)
--- NOTE | 2021-06-16 23:31 | P.HPHOSP_ITS ---
History of Present Illness Date of Service: 06/16/21 Chief Complaint: foot infection this is a 51-year-old female with past medical history of diabetes complicated by neuropathy as well as status post amputation of left metatarsals, P AD, hyperlipidemia, history of heart failure with preserved ejection fraction, hypertension, who presents to the hospital with complaints of left foot infection. Patient reports that she has neuropathy and therefore does not experience pain, she was working in her pantry when her neighbor noticed there was blood on her sock, when she moved her sock she noticed significant skin changes of her for left toes, some bloody drainage. She denies having any fever but has chills, denies experiencing any pain, no chest pain, no shortness of breath, no abdominal pain nausea or vomiting, no diarrhea constipation, no urinary symptoms and no lower extremity edema. On arrival to the patient's vitals or unremarkable except for slightly elevated blood pressure Labs are significant for WBC count of 15.5, ESR 75, BUN of 24, creatinine of 1.11, CRP of 6.93, Foot x-ray negative patient started on IV antibiotics and will be admitted for further management with Review of Systems Review of Systems: Yes all other systems are reviewed and are negative [facility] Medical History Abscess Amputated toe of left foot Amputation of left foot BMI 39.0-39.9,adult Chronic heart failure with preserved ejection fraction (HFpEF) Chronic osteomyelitis of foot Diabetes Diabetic foot infection Diabetic foot infection Essential hypertension High cholesterol Hyperlipidemia Hypertension Insulin dependent diabetes mellitus Neuropathy Obesity Osteomyelitis PAD (peripheral artery disease) Type 2 diabetes mellitus with unspecified complications Uncontrolled diabetes mellitus Vitamin B12 deficiency VRE (vancomycin resistant enterococcus) culture positive Family History Mother Diabetes Hypertension Disk prolapse Father Diabetes Hypertension Sister No problems noted. Brother No problems noted. Daughter No problems noted. Son No problems noted. Surgical History H/O spinal fusion History of section History of tubal ligation Social History Household Members: Spouse Household Members Other:: Housing: Apartment Do you presently have visiting nurse or other home services: Yes Alcohol intake: never Patient Tobacco Use Status: Never used Tobacco Advance Directives: Yes Advance Directives on File: Yes Advance Directives Date on File: 02/15/21 service: No Current occupational status: unemployed Meds Allergies Allergy/AdvReac Type Severity Reaction Status Date / Time No Known Allergies Allergy Verified 06/16/21 21:17 [No Known Allergies*] Active Medications: Current Medications Acetaminophen (Acetaminophen 325 Mg Tablet) 650 mg PO Q6H PRN PRN Reason: Pain, Mild (Pain Scale 1-3) Docusate Sodium (Docusate Sodium 100 Mg Capsule) 100 mg PO DAILY PRN PRN Reason: Constipation Piperacillin Sod/Tazobactam (Sod 3.375 gm/ Sodium Chloride) 50 mls @ 100 mls/hr IV Q6H ANGÉLICA Vancomycin HCl 1,500 mg/ (Sodium Chloride) 500 mls @ 333.333 mls/hr IV Q12H ANGÉLICA Ondansetron HCl (Ondansetron Hcl 4 Mg/2 Ml Vial) 4 mg IVPUSH Q8H PRN PRN Reason: Nausea and Vomiting Pharmacy Consult (Consult Rx Vancomycin Dosing) 1 each MISCELLANE DAILY PRN PRN Reason: Consult order Sodium Chloride (0.9 % Sodium Chloride Flush 3 Ml Syringe) [facility] Medications Medication Instructions Recorded Confirmed Last Taken Type Lantus U-100 Insulin 50 units BEDTIME 03/19/20 06/17/21 1 Day Ago History ~06/16/21 amlodipine 10 mg tablet 1 tab PO DAILY 03/19/20 06/17/21 1 Day Ago History ~06/16/21 atorvastatin 80 mg tablet 1 tab PO BEDTIME 03/19/20 06/17/21 1 Day Ago History ~06/16/21 gabapentin 300 mg capsule 1 cap PO TID 03/19/20 06/17/21 1 Day Ago History ~06/16/21 insulin aspart U-100 100 unit/mL 20 unit SUBCUT TIDAC 03/19/20 06/17/21 1 Day Ago History subcutaneous solution (Novolog ~06/16/21 U-100 Insulin aspart) Physical Exam Vital Signs and Narrative: Vital Signs: Last Vital Signs Temp 97.9 F 06/16/21 22:00 Pulse 90 06/16/21 22:00 Resp 16 06/16/21 22:00 BP 178/89 H 02/26/22 22:00 Pulse Ox 98 06/16/21 22:00 BMI result Body Mass Index 36.7 Const: General: cooperative and no acute distress Orientation/consciousness: patient oriented x3 Eyes: General: appearance normal, both eyes and all related structures Pupils: Equal, round and reactive pupils present Resp: Effort & Inspection: normal respiratory effort Auscultation: clear to auscultation bilaterally Cardio: Rate: regular rate Rhythm: regular rhythm GI: Palpation (GI): Soft to palpation Auscultation: normal bowel sounds Skin: Other: see extremity exam Neuro: General: patient oriented x3 Cranial nerves: Yes Equal, round and reactive pupils present Cognition (Neuro): normal cognition Extrem: Other: thirst skin changes, ulcers /open wound, and skin sloughing of the for right toes, some bloody drainage Results Labs CBC and Chem 7: 06/16/21 21:34 06/16/21 21:34 Labs: Laboratory Results - last 24 hr 06/16/21 06/16/21 06/16/21 21:34 21:34 21:34 MCV 83.0 MCH 26.3 L MCHC 31.8 RDW 13.1 Plt Count 435 H MPV 11.1 Immature Gran % (Auto) 0.5 H Neut % (Auto) 65.9 Lymph % (Auto) 22.3 [place] % (Auto) 8.2 Eos % (Auto) 2.4 Baso % (Auto) 0.7 Lymph # (Auto) 3.5 [place] # (Auto) 1.3 H Eos # (Auto) 0.4 Baso # (Auto) 0.1 Abs Immat Gran (auto) 0.08 H Absolute Neuts (auto) 10.2 H Absolute Nucleated RBC 0.000 Nucleated RBC % (auto) 0.0 Anion Gap 17 Estim Creat Clear Calc 63.7 Estimated GFR 52 Random Glucose 238 H Lactic Acid Calcium 9.7 Total Bilirubin 0.3 AST 30 D ALT 21 Alkaline Phosphatase 150 H D Total Protein 7.2 Albumin 3.6 COVID-19 ([facility]) Negative COVID-19 Clin Com See Note 06/16/21 22:36 MCV MCH MCHC RDW Plt Count MPV Immature Gran % (Auto) Neut % (Auto) Lymph % (Auto) [place] % (Auto) Eos % (Auto) Baso % (Auto) Lymph # (Auto) [place] # (Auto) Eos # (Auto) Baso # (Auto) Abs Immat Gran (auto) Absolute Neuts (auto) Absolute Nucleated RBC Nucleated RBC % (auto) Anion Gap Estim Creat Clear Calc Estimated GFR Random Glucose Lactic Acid 1.0 Calcium Total Bilirubin AST ALT Alkaline Phosphatase Total Protein Albumin COVID-19 ([facility]) COVID-19 Clin Com Imaging Radiologist's Impressions: Impressions Foot X-Ray 06/16/21 22:26 IMPRESSION: No acute osseous abnormality. MRI would be more sensitive if osteomyelitis is suspected. Assessment and Plan (1) Diabetic infection of right foot: Status: Acute (2) Leukocytosis: Status: Acute (3) Elevated erythrocyte sedimentation rate: Status: Acute Plan pt with hx of DM as well as PAD presents to the hospital with complaints of right foot wound # diabetic foot infection - likely secondary to osteomyelitis - has elevated ESR and CRP - patient has leukocytosis, afebrile, no elevation of lactic acid - will treat with IV antibiotics, obtain MRI of right foot, arterial Doppler ordered as well in the setting of PAD - follow cultures # leukocytosis - secondary to above - follow CBC # elevated inflammatory markers - likely secondary to osteomyelitis - IV antibiotics, follow cultures # diabetes - low-dose sliding scale insulin, diabetic diet, continue home Lantus # hypertension - elevated - continue amlodipine # hyperlipidemia - continue statin DVT prophylaxis: Lovenox Quality Stroke Does the patient have a stroke diagnosis?: No VTE Prior VTE?: No VTE Risk Level:: Medical - moderate - high VTE Device Contraindication: N/A - Device Ordered VTE Drug Contraindication: Treatment Not Indicated
[2021-06-16 23:37] VITALS: BP 177/97; PULSE 85; RESP 22; O2SAT 97
[2021-06-16 23:47] LABS: C Reactive Protein 6.93 mg/dL (< or = 0.50)
[2021-06-17] MEDS: vancomycin HCL 1,500 MG in 0.9 % Sodium Chloride 500 ML 333.33 MG IV (00:10)
[2021-06-17 00:18] LABS: Erythrocyte Sedimentation Rate 75 MM/HR (0-20)
[2021-06-17 01:08] LABS: Glucose, Whole Blood 254 mg/dL (60-115)
--- NOTE | 2021-06-17 01:22 | PC.NURSE ---
nurse to nurse report given to Jefferson DONOHUE in overflow
[2021-06-17] MEDS: Acetaminophen 325 MG TABLET 650 MG PO ×3 (03:18→20:14)
[2021-06-17] MEDS: oxyCODONE HCl Immed Release 5 MG TABLET PO (05:48)
[2021-06-17] MEDS: Piperacillin Sodium/Tazobactam 3.375 GM in 0.9 % Sodium Chloride 50 ML IV ×4 (05:55→23:11)
[2021-06-17 07:29] LABS: MANUAL DIFF FLAG NO
[2021-06-17 07:47] LABS: Anion Gap 14 (12-20); Blood Urea Nitrogen 20 mg/dL (9-16); Carbon Dioxide 25 mmol/L (22-29); Chloride 103 mmol/L (96-108); Estimated Glomerular Filt Rate 58; Glucose Random 317 mg/dL (60-115); Potassium 4.2 mmol/L (3.3-5.1); Sodium 138 mmol/L (135-145)
--- NOTE | 2021-06-17 07:59 | PHA.PROG ---
Admission Date/Time: June 16, 2021 23:28 Indication: BONE AND JOINT INFECTION Weight in k.172 kg Adjusted body weight in Kg: [place] body weight in K.1 Obesity Dosing Indication % IBW:80% OVER IBW Serum Creatinine - Last 168 Hours 06/16/21 06/17/21 21:34 07:19 Creatinine 1.11 1.01 Estimated CrCl and GFR - Last 168 Hours 06/16/21 06/17/21 21:34 07:19 Estim Creat Clear Calc 63.7 70.0 Estimated GFR 52 58 Vancomycin Loading Dose: 1500 MG GIVEN FOR LOAD Current Vancomycin Dosing Regimen:1250 MG Q 24 HOURS Vancomycin Monitoring using AUC goal of 400 - 600 range with trough as surrogate marker:PREDICTED AUC OF 503 Date and Time for next Vancomycin Level to be drawn:WILL CHECK LEVEL AFTER 2 DOSES Pharmacist Comments on Vancomycin Plan: Vancomycin dosing will take advantage of [employer] as a clinical decision support tool that uses Bayesian modeling to calculate individual patient's pharmacokinetic parameters and forecast the patient's drug concentration time course with the target goal AUC 24 range of 400 - 600 mg/L/hr.
[2021-06-17 08:13] LABS: Basophils Absolute Auto 0.1 X10*3/uL (0.0-0.2); Basophils Percent Auto 0.7 % (0-2); Eosinophils Absolute Auto 0.5 X10*3/uL (0.0-0.4); Hematocrit 35.2 % (37.0-47.0); Hemoglobin 11.6 g/dl (12.0-16.0); Imm Gran Abs Auto 0.06 X10*3/uL (0.00-0.03); Imm Gran Pct Auto 0.4 % (0.0-0.4); Lymphocytes Absolute Auto 3.3 X10*3/uL (1.2-4.9); Lymphocytes Percent Auto 20.9 % (20-40); Mean Corpuscular Volume 81.9 fL (80.0-98.0); Mean Platelet Volume 11.5 fL (9.4-12.3); Monocytes Absolute Auto 1.5 X10*3/uL (0.1-1.2); Monocytes Percent Auto 9.4 % (2-11); Neutrophils Absolute Auto 10.4 x10*3/uL (2.0-8.3); Neutrophils Percent Auto 65.6 % (45-73); Platelet Count 381 X10*3/uL (160-400); Red Cell Distribution Width 13.2 % (11.0-16.0); White Blood Count 15.9 X10*3/uL (4.8-10.8)
--- NOTE | 2021-06-17 08:13 | HO.PM.IMPN ---
Subjective Subjective Date of Service: 06/17/21 Interval History: dm foot -right Review of Systems mild foot soraness Denies any chest pain shortness of breath or abdominal pain or fever chills Physical Exam Vital Signs: Vital Signs: Last Vital Signs Temp 97.9 F 06/16/21 22:00 Pulse 85 06/16/21 23:37 Resp 22 H 06/16/21 23:37 BP 177/97 H 06/16/21 23:37 Pulse Ox 97 06/16/21 23:37 BMI result Body Mass Index 36.7 Appearance: Alert.? Oriented X3.? not in distress.? Eyes: Pupils equal, round and reactive to light.? Sclera nonicteric.? ENT: Pharynx normal.? Moist mucous membranes. cvs: rrr, [id number]. res: clear to auscultation ,no rhonchii or wheezing abd: no rebound or guarding ,nt, bs present. ext pulses present , no cyanosis right foot--thirst skin changes, ulcers /open wound, and skin sloughing of the for right toes,? some bloody drainage. neuro: axo3 , nonfocal. Objective Data Active Medications Acetaminophen (Acetaminophen 325 Mg Tablet) 650 mg PO Q6H PRN PRN Reason: Pain, Mild (Pain Scale 1-3) Last Admin: 06/17/21 03:18 Dose: 650 mg Documented by: ROSEANN Amlodipine Besylate (Amlodipine Besylate 10 Mg Tablet) 10 mg PO DAILY [facility]; Protocol Atorvastatin Calcium (Atorvastatin Calcium 80 Mg Tablet) 80 mg PO BEDTIME [facility] Cyanocobalamin (Cyanocobalamin (Vitamin B-12) 1,000 Mcg Tablet) 1,000 mcg PO DAILY [facility] Dextrose (Dextrose 50 % 25 Gm/50 Ml Syringe) 25 gm IVPUSH Q15M PRN; Protocol PRN Reason: per Hypoglycemia Standing Ord. Docusate Sodium (Docusate Sodium 100 Mg Capsule) 100 mg PO DAILY PRN PRN Reason: Constipation Gabapentin (Gabapentin 300 Mg Capsule) 300 mg PO TID [facility] Glucose (Glucose Gel 15 Gm Gel..Gram.) 15 gm PO Q15M PRN; Protocol PRN Reason: per Hypoglycemia Standing Ord. Piperacillin Sod/Tazobactam (Sod 3.375 gm/ Sodium Chloride) 50 mls @ 100 mls/hr IV Q6H [facility] Last Admin: 06/17/21 05:55 Dose: 100 mls/hr Documented by: ROSEANN Vancomycin HCl 1,250 mg/ (Sodium Chloride) 250 mls @ 166.667 mls/hr IV Q24H [facility] Insulin Glargine (Insulin Glargine,Hum.Rec.Anlog 100 Unit/Ml 10 Ml Vial) 50 unit SUBCUT BEDTIME ANGÉLICA Insulin Human Lispro (Insulin Lispro 100 Unit/Ml 3 Ml Vial) 0 unit SUBCUT QIDACHS [facility]; Protocol Ondansetron HCl (Ondansetron Hcl 4 Mg/2 Ml Vial) 4 mg IVPUSH Q8H PRN PRN Reason: Nausea and Vomiting Pharmacy Consult (Consult Rx Vancomycin Dosing) 1 each MISCELLANE DAILY PRN PRN Reason: Consult order Sodium Chloride (0.9 % Sodium Chloride Flush 3 Ml Syringe) 3 ml IVFLUSH QSHIFT [facility] Last Admin: 06/17/21 00:09 Dose: Not Given Documented by: MEMO Non-Admin Reason: Med Not Available Labs CBC & Chem 7: 06/17/21 07:19 06/17/21 07:19 Labs: Laboratory Results - last 24 hr 06/16/21 06/16/21 06/16/21 21:34 21:34 21:34 MCV 83.0 MCH 26.3 L MCHC 31.8 RDW 13.1 Plt Count 435 H MPV 11.1 Immature Gran % (Auto) 0.5 H Neut % (Auto) 65.9 Lymph % (Auto) 22.3 [place] % (Auto) 8.2 Eos % (Auto) 2.4 Baso % (Auto) 0.7 Lymph # (Auto) 3.5 [place] # (Auto) 1.3 H Eos # (Auto) 0.4 Baso # (Auto) 0.1 Abs Immat Gran (auto) 0.08 H Absolute Neuts (auto) 10.2 H Absolute Nucleated RBC 0.000 Nucleated RBC % (auto) 0.0 ESR Anion Gap 17 Estim Creat Clear Calc 63.7 Estimated GFR 52 POC Glucose Random Glucose 238 H Lactic Acid Calcium 9.7 Total Bilirubin 0.3 AST 30 D ALT 21 Alkaline Phosphatase 150 H D C-Reactive Protein 6.93 H Total Protein 7.2 Albumin 3.6 COVID-19 ([facility]) Negative COVID-19 Clin Com See Note 06/16/21 06/16/21 06/17/21 21:34 22:36 01:03 MCV MCH MCHC RDW Plt Count MPV Immature Gran % (Auto) Neut % (Auto) Lymph % (Auto) [place] % (Auto) Eos % (Auto) Baso % (Auto) Lymph # (Auto) [place] # (Auto) Eos # (Auto) Baso # (Auto) Abs Immat Gran (auto) Absolute Neuts (auto) Absolute Nucleated RBC Nucleated RBC % (auto) ESR 75 H Anion Gap Estim Creat Clear Calc Estimated GFR POC Glucose 254 H Random Glucose Lactic Acid 1.0 Calcium Total Bilirubin AST ALT Alkaline Phosphatase C-Reactive Protein Total Protein Albumin COVID-19 ([facility]ATA) COVIDScan & Target 06/17/21 07:19 MCV MCH MCHC RDW Plt Count MPV Immature Gran % (Auto) Neut % (Auto) Lymph % (Auto) [place] % (Auto) Eos % (Auto) Baso % (Auto) Lymph # (Auto) [place] # (Auto) Eos # (Auto) Baso # (Auto) Abs Immat Gran (auto) Absolute Neuts (auto) Absolute Nucleated RBC Nucleated RBC % (auto) ESR Anion Gap 14 Estim Creat Clear Calc 70.0 Estimated GFR 58 POC Glucose Random Glucose 317 H Lactic Acid Calcium 9.0 D Total Bilirubin AST ALT Alkaline Phosphatase C-Reactive Protein Total Protein Albumin COVID-19 (CHATA) COVIDScan & Target Assessment and Plan (1) Diabetic infection of right foot: Status: Acute (2) PAD (peripheral artery disease): Status: Acute (3) BMI 39.0-39.9,adult: Status: Acute Plan 51 y/of pt with hx of DM? as well as PAD presents to the hospital? with complaints of right foot wound 1. diabetic foot infection, hx of PAD-? though to be likely secondary to osteomyelitis -? has elevated ESR and CRP -? patient has leukocytosis, afebrile, no elevation of lactic acid continue IV antibiotics, obtain MRI of right foot, arterial Doppler ordered as well in the setting of PAD vanco trough -? follow cultures, added ID and vascular eval 2.? diabetes uncontrolled: fs running from 200-250 range fs with adjusted sliding scale insulin, diabetic diet, continue home Lantus 3.? hypertension: uncontrolled continue amlodipine, added metoprolol moniter blood pressure closely. 4. hyperlipidemia: continue statin. 5.PAD:Continue asa, statin 6. morbid obesity: Encouraged to lose weight. ?DVT prophylaxis:? Lovenox Above management discussed with patient-patient understand and in agreement with above plan . Quality Stroke Does the patient have a stroke diagnosis?: No VTE Prior VTE?: No VTE Risk Level:: Medical - moderate - high VTE Device Contraindication: N/A - Device Ordered VTE Drug Contraindication: Treatment Not Indicated
--- NOTE | 2021-06-17 08:14 | PHA.MEDREC ---
Pharmacy Consult ? Medication Reconciliation RN has completed the medication reconciliation. Pharmacy reviewed. Spoke with patient in ED overflow and only added aspirin.
[2021-06-17 08:18] LABS: Glucose, Whole Blood 273 mg/dL (60-115)
[2021-06-17] MEDS: 0.9 % Sodium Chloride Flush 3 ML SYRINGE IVFLUSH ×2 (09:37→17:23)
[2021-06-17] MEDS: Insulin Lispro 100 UNIT/ML 3 ML VIAL SUBCUT ×4 (09:37→20:15)
[2021-06-17] MEDS: Cyanocobalamin (Vitamin B-12) 1,000 MCG TABLET 1000 MCG PO (09:38)
[2021-06-17] MEDS: Gabapentin 300 MG CAPSULE PO ×3 (09:38→20:14)
[2021-06-17] MEDS: amLODIPine Besylate 10 MG TABLET PO (09:38)
[2021-06-17 12:28] VITALS: BP 183/92; PULSE 82; TEMP 36.7
--- NOTE | 2021-06-17 12:29 | MHC.CM.PN ---
CM ATTEMPTED TO SEE PT WHO WAS OFF UNIT CM TO REVISIT
[2021-06-17] MEDS: Metoprolol Tartrate 25 MG TABLET PO ×2 (12:44→20:20)
[2021-06-17 13:44] LABS: Glucose, Whole Blood 255 mg/dL (60-115)
[2021-06-17 18:13] VITALS: BP 146/73; PULSE 85; RESP 18; TEMP 36.8
[2021-06-17 18:29] LABS: Glucose, Whole Blood 290 mg/dL (60-115)
[2021-06-17 19:37] VITALS: BP 174/72; PULSE 74; RESP 16; TEMP 37.1; O2SAT 96
[2021-06-17 19:39] LABS: Glucose, Whole Blood 344 mg/dL (60-115)
[2021-06-17] MEDS: Atorvastatin Calcium 80 MG TABLET PO (20:14)
[2021-06-17] MEDS: Insulin Glargine,Hum.rec.anlog 100 UNIT/ML 10 ML VIAL 55 UNIT SUBCUT (20:14)
--- NOTE | 2021-06-17 21:11 | PM.CNGS ---
History of Present Illness Consult details Consult date: 06/17/21 Requesting physician: Jesusita Gonzalez Narrative: pt known to me at wound care - has left TMA and diabetic neuropathy of the feet. she had bumped her foot into the washing machine but didnt feel it because of nu=europathy - her friend saw her with sock with blood and pointed out to her. took off sock and toes all looked bad so she came into the ER Review of Systems Review of Systems: Yes all other systems are reviewed and are negative [facility] Past Medical History Medical History Abscess Amputated toe of left foot Amputation of left foot BMI 39.0-39.9,adult Chronic heart failure with preserved ejection fraction (HFpEF) Chronic osteomyelitis of foot Diabetes Diabetic foot infection Diabetic foot infection Essential hypertension High cholesterol Hyperlipidemia Hypertension Insulin dependent diabetes mellitus Neuropathy Obesity Osteomyelitis PAD (peripheral artery disease) Type 2 diabetes mellitus with unspecified complications Uncontrolled diabetes mellitus Vitamin B12 deficiency VRE (vancomycin resistant enterococcus) culture positive Functional capacity: independent ambulation Family History Family History Mother Diabetes Hypertension Disk prolapse Father Diabetes Hypertension Sister No problems noted. Brother No problems noted. Daughter No problems noted. Son No problems noted. Surgical History Surgical History H/O spinal fusion History of section History of tubal ligation Social History Social History Household Members: Spouse Household Members Other:: Housing: Apartment Do you presently have visiting nurse or other home services: Yes Alcohol intake: never Patient Tobacco Use Status: Never used Tobacco Advance Directives: Yes Advance Directives on File: Yes Advance Directives Date on File: 02/15/21 service: No Current occupational status: unemployed Meds Allergies Allergy/AdvReac Type Severity Reaction Status Date / Time No Known Allergies Allergy Verified 06/16/21 21:17 [No Known Allergies*] Active Medications: Current Medications Acetaminophen (Acetaminophen 325 Mg Tablet) 650 mg PO Q6H PRN PRN Reason: Pain, Mild (Pain Scale 1-3) Last Admin: 06/17/21 20:14 Dose: 650 mg Documented by: Amlodipine Besylate (Amlodipine Besylate 10 Mg Tablet) 10 mg PO DAILY [facility]; Protocol Last Admin: 06/17/21 09:38 Dose: 10 mg Documented by: Atorvastatin Calcium (Atorvastatin Calcium 80 Mg Tablet) 80 mg PO BEDTIME [facility] Last Admin: 06/17/21 20:14 Dose: 80 mg Documented by: Cyanocobalamin (Cyanocobalamin (Vitamin B-12) 1,000 Mcg Tablet) 1,000 mcg PO DAILY [facility] Last Admin: 06/17/21 09:38 Dose: 1,000 mcg Documented by: Dextrose (Dextrose 50 % 25 Gm/50 Ml Syringe) 25 gm IVPUSH Q15M PRN; Protocol PRN Reason: per Hypoglycemia Standing Ord. Docusate Sodium (Docusate Sodium 100 Mg Capsule) 100 mg PO DAILY PRN PRN Reason: Constipation Gabapentin (Gabapentin 300 Mg Capsule) 300 mg PO TID [facility] Last Admin: 06/17/21 20:14 Dose: 300 mg Documented by: Glucose (Glucose Gel 15 Gm Gel..Gram.) 15 gm PO Q15M PRN; Protocol PRN Reason: per Hypoglycemia Standing Ord. Piperacillin Sod/Tazobactam (Sod 3.375 gm/ Sodium Chloride) 50 mls @ 100 mls/hr IV Q6H [facility] Last Infusion: 06/17/21 18:12 Dose: Infused Documented by: Vancomycin HCl 1,250 mg/ (Sodium Chloride) 250 mls @ 166.667 mls/hr IV Q24H [facility] Insulin Glargine (Insulin Glargine,Hum.Rec.Anlog 100 Unit/Ml 10 Ml Vial) 55 unit SUBCUT BEDTIME [facility] Last Admin: 06/17/21 20:14 Dose: 55 unit Documented by: Insulin Human Lispro (Insulin Lispro 100 Unit/Ml 3 Ml Vial) 0 unit SUBCUT QIDACHS [facility]; Protocol Last Admin: 06/17/21 20:15 Dose: 10 unit Documented by: Metoprolol Tartrate (Metoprolol Tartrate 25 Mg Tablet) 25 mg PO BID [facility]; Protocol Last Admin: 06/17/21 20:20 Dose: 25 mg Documented by: Ondansetron HCl (Ondansetron Hcl 4 Mg/2 Ml Vial) 4 mg IVPUSH Q8H PRN PRN Reason: Nausea and Vomiting Pharmacy Consult (Consult Rx Vancomycin Dosing) 1 each MISCELLANE DAILY PRN PRN Reason: Consult order Sodium Chloride (0.9 % Sodium Chloride Flush 3 Ml Syringe) 3 [facility] Last Admin: 06/17/21 17:23 Dose: 3 ml Documented by: Home Medications Medication Instructions Recorded Confirmed Last Taken Type Lantus U-100 Insulin 50 units BEDTIME 03/19/20 06/17/21 1 Day Ago History ~06/16/21 amlodipine 10 mg tablet 1 tab PO DAILY 03/19/20 06/17/21 1 Day Ago History ~06/16/21 atorvastatin 80 mg tablet 1 tab PO BEDTIME 03/19/20 06/17/21 1 Day Ago History ~06/16/21 gabapentin 300 mg capsule 1 cap PO TID 03/19/20 06/17/21 1 Day Ago History ~06/16/21 insulin aspart U-100 100 unit/mL 20 unit SUBCUT TIDAC 03/19/20 06/17/21 1 Day Ago History subcutaneous solution (Novolog ~06/16/21 U-100 Insulin aspart) aspirin 81 mg chewable tablet 81 mg PO DAILY 06/17/21 06/17/21 06/16/21 History Physical Exam Vital Signs: Vital Signs: Last Vital Signs Temp 98.7 F 06/17/21 19:37 Pulse 74 06/17/21 19:37 Resp 16 06/17/21 19:37 BP 174/72 H 06/17/21 19:37 Pulse Ox 96 06/17/21 19:37 BMI result Body Mass Index 36.7 Skin: Other: right foot with third fourth and fifth toes burised and some purplish color no significant open wounds some swelling Results Labs Result diagrams: 06/17/21 07:19 06/17/21 07:19 Labs: Abnormal lab results 06/16/21 06/16/21 06/16/21 Range/Units 21:34 21:34 21:34 WBC 15.5 H (4.8-10.8) X10*3/uL Hgb (12.0-16.0) g/dl Hct (37.0-47.0) % MCH 26.3 L (27.0-33.0) pg Plt Count 435 H (160-400) X10*3/uL Immature Gran % (Auto) 0.5 H (0.0-0.4) % [place] # (Auto) 1.3 H (0.1-1.2) X10*3/uL Eos # (Auto) (0.0-0.4) X10*3/uL Abs Immat Gran (auto) 0.08 H (0.00-0.03) X10*3/uL Absolute Neuts (auto) 10.2 H (2.0-8.3) x10*3/uL ESR 75 H (0-20) MM/HR BUN 24 H D (9-16) mg/dL POC Glucose (60-115) mg/dL Random Glucose 238 H (60-115) mg/dL Alkaline Phosphatase 150 H D (39-117) U/L C-Reactive Protein 6.93 H (< or = 0.50) mg/dL 06/17/21 06/17/21 06/17/21 Range/Units 01:03 07:19 07:19 WBC 15.9 H (4.8-10.8) X10*3/uL Hgb 11.6 L (12.0-16.0) g/dl Hct 35.2 L (37.0-47.0) % MCH (27.0-33.0) pg Plt Count (160-400) X10*3/uL Immature Gran % (Auto) (0.0-0.4) % [place] # (Auto) 1.5 H (0.1-1.2) X10*3/uL Eos # (Auto) 0.5 H (0.0-0.4) X10*3/uL Abs Immat Gran (auto) 0.06 H (0.00-0.03) X10*3/uL Absolute Neuts (auto) 10.4 H (2.0-8.3) x10*3/uL ESR (0-20) MM/HR BUN 20 H (9-16) mg/dL POC Glucose 254 H (60-115) mg/dL Random Glucose 317 H (60-115) mg/dL Alkaline Phosphatase (39-117) U/L C-Reactive Protein (< or = 0.50) mg/dL 06/17/21 06/17/21 06/17/21 Range/Units 08:14 13:32 18:23 WBC (4.8-10.8) X10*3/uL Hgb (12.0-16.0) g/dl Hct (37.0-47.0) % MCH (27.0-33.0) pg Plt Count (160-400) X10*3/uL Immature Gran % (Auto) (0.0-0.4) % [place] # (Auto) (0.1-1.2) X10*3/uL Eos # (Auto) (0.0-0.4) X10*3/uL Abs Immat Gran (auto) (0.00-0.03) X10*3/uL Absolute Neuts (auto) (2.0-8.3) x10*3/uL ESR (0-20) MM/HR BUN (9-16) mg/dL POC Glucose 273 H 255 H 290 H (60-115) mg/dL Random Glucose (60-115) mg/dL Alkaline Phosphatase (39-117) U/L C-Reactive Protein (< or = 0.50) mg/dL 06/17/21 Range/Units 19:35 WBC (4.8-10.8) X10*3/uL Hgb (12.0-16.0) g/dl Hct (37.0-47.0) % MCH (27.0-33.0) pg Plt Count (160-400) X10*3/uL Immature Gran % (Auto) (0.0-0.4) % [place] # (Auto) (0.1-1.2) X10*3/uL Eos # (Auto) (0.0-0.4) X10*3/uL Abs Immat Gran (auto) (0.00-0.03) X10*3/uL Absolute Neuts (auto) (2.0-8.3) x10*3/uL ESR (0-20) MM/HR BUN (9-16) mg/dL POC Glucose 344 H (60-115) mg/dL Random Glucose (60-115) mg/dL Alkaline Phosphatase (39-117) U/L C-Reactive Protein (< or = 0.50) mg/dL Short CBC 06/16/21 06/17/21 Range/Units 21:34 07:19 WBC 15.5 H 15.9 H (4.8-10.8) X10*3/uL Hgb 12.7 11.6 L (12.0-16.0) g/dl Hct 40.0 35.2 L (37.0-47.0) % Plt Count 435 H 381 (160-400) X10*3/uL BMP 06/16/21 06/17/21 21:34 07:19 Sodium 137 138 Potassium 4.2 4.2 Chloride 100 103 Carbon Dioxide 24 25 BUN 24 H D 20 H Creatinine 1.11 1.01 Calcium 9.7 9.0 D Liver Function 06/16/21 Range/Units 21:34 Total Bilirubin 0.3 (0.0-1.0) mg/dL AST 30 D (5-31) U/L ALT 21 (0-31) U/L Alkaline Phosphatase 150 H D (39-117) U/L Albumin 3.6 (3.5-5.0) g/dL All other labs normal. Imaging Additional studies: foot xrays reviewed Assessment and Plan (1) Diabetic infection of right foot: Status: Acute Plan 51 year old female with diabetic right foot infection - no significant open wound. vascular status i believe has been good i agree with iv antibx, just wrap foot toes to protect with gauze and monitor wounds vascular consult as needed but i think it is fine when dc have her cont to follow up in wound care office Procedures Date of Service Date of Service: 06/17/21
[2021-06-17] MEDS: vancomycin HCL 1,250 MG in 0.9 % Sodium Chloride 250 ML 166.67 MG IV (21:12)
[2021-06-18] VITALS (7 sets, daily range): BP systolic 121–166; BP diastolic 57–78; PULSE 73–85; RESP 16–18; TEMP 36–37.1; O2SAT 94–99
[2021-06-18] MEDS: 0.9 % Sodium Chloride Flush 3 ML SYRINGE IVFLUSH ×4 (01:03→20:39)
[2021-06-18] MEDS: Piperacillin Sodium/Tazobactam 3.375 GM in 0.9 % Sodium Chloride 50 ML IV (04:43)
[2021-06-18] MEDS: Gabapentin 300 MG CAPSULE PO ×3 (07:48→20:39)
[2021-06-18] MEDS: Acetaminophen 325 MG TABLET 650 MG PO (07:48)
[2021-06-18] MEDS: Cyanocobalamin (Vitamin B-12) 1,000 MCG TABLET 1000 MCG PO (07:48)
[2021-06-18] MEDS: amLODIPine Besylate 10 MG TABLET PO (07:48)
[2021-06-18] MEDS: Metoprolol Tartrate 25 MG TABLET PO ×2 (07:48→20:39)
[2021-06-18] MEDS: Insulin Lispro 100 UNIT/ML 3 ML VIAL SUBCUT ×4 (07:48→20:38)
[2021-06-18 08:12] LABS: Glucose, Whole Blood 212 mg/dL (60-115)
--- NOTE | 2021-06-18 08:19 | HE.PHANOTE ---
VANCOMYCIN ADDENDUM SERUM CR SLIGHTLY DECREASED, LEVEL DUE TONIGHT AT 1999, NO CHANGE TO DOSE
--- NOTE | 2021-06-18 10:50 | PM.DS ---
DS: Providers Provider Date of Service: 06/18/21 Date of admission: 06/16/21 23:28 Primary care physician: Farhana Ellison MD Consults: 06/17/21 00:12 Consult to General Surgery Routine Consulting Provider: Angelia Pineda Reason for consultation: diabetic foot wound Has provider been notified: No 06/17/21 08:16 Consult to Infectious Diseases Routine Consulting Provider: Reanna Graves Reason for consultation: sm foot infection right side Has provider been notified: No 06/17/21 11:23 Consult to Vascular Surgery Routine Consulting Provider: John Peguero Reason for consultation: right foot ulcer , PAD Has provider been notified: No DS: Diagnosis Discharge Diagnosis (1) Diabetic infection of right foot: Status: Acute DS: Summary Hospital Course Hospital Course: from initial hpi: ?this is a 51-year-old female with past medical history of diabetes complicated by neuropathy as well as status post amputation of left metatarsals,? P AD, hyperlipidemia, history of heart failure with preserved ejection fraction, hypertension, who presents to the hospital with complaints of left foot infection.? Patient reports that she has neuropathy and therefore does not experience pain, she was working in her pantry when her neighbor noticed there was blood on her sock, when she moved her sock she noticed significant skin changes of her for left toes, some bloody drainage.? She denies having any fever but has chills, denies experiencing any pain, no chest pain, no shortness of breath, no abdominal pain nausea or vomiting, no diarrhea constipation, no urinary symptoms and no lower extremity edema. On arrival to the patient's vitals? or unremarkable except for slightly elevated blood pressure Labs are significant for? WBC count of 15.5, ESR 75, BUN of 24, creatinine of 1.11, CRP of 6.93, Foot x-ray negative ?patient started on IV antibiotics and will be admitted for further management with hospital course: Patient was admitted for cellulitis associated with right posttraumatic diabetic foot infection complicated by peripheral arterial disease. She was treated with broad-spectrum IV antibiotics and was seen by infectious disease who recommended 6 weeks of IV ertapenem and PO Zyvox to be completed 07/27/2021. Patient MRI which did not show osteomyelitis. She was seen by vascular surgery was deemed not to have a significant active arterial disease who recommended Continuing aspirin statin and outpatient follow-up for routine surveillance. Patient has diabetes with hyperglycemia, was treated with basal bolus insulin. For hypertension she was treated with amlodipine. For her obesity weight loss was recommended. patient is now medically stable will be discharged home with PICC line to complete her antibiotics. She will follow-up with Infectious Disease Status at Discharge Cognitive/behavioral status at discharge: 51-year-old female with past medical history of diabetes complicated by neuropathy as well as status post amputation of left metatarsals,? P AD, hyperlipidemia, history of heart failure with preserved ejection fraction, hypertension, who presents to the hospital with complaints of left foot infection.? Patient reports that she has neuropathy and therefore does not experience pain, she was working in her pantry when her neighbor noticed there was blood on her sock, when she moved her sock she noticed significant skin changes of her for left toes, some bloody drainage.? She denies having any fever but has chills, denies experiencing any pain, no chest pain, no shortness of breath, no abdominal pain nausea or vomiting, no diarrhea constipation, no urinary symptoms and no lower extremity edema. On arrival to the patient's vitals? or unremarkable except for slightly elevated blood pressure Labs are significant for? WBC count of 15.5, ESR 75, BUN of 24, creatinine of 1.11, CRP of 6.93, Foot x-ray negative Hospital course: Patient came to the hospital because of right foot cellulitis-started on IV antibiotics seems to be improving seen by ID and vascular and Foot MRIs was done: Seems to be cellulitis. Seen by infectious disease and vascular: Patient was switched to iv antibiotic since still concern of dm foot infection /cellulitis: In addition patient is to follow up outpatient with wound care patient is aware of that. please check cbc , BMP, CPK, liver panel, ESR, CRP we have weekly while on antibiotics. Above management discussed with the patient in detail length she understand and in agreement with the above plan, time spent 50 minutes and 50% time spent on counseling. Significant findings: As above. Procedures performed: None. Treatment and response: As above. Complications: None. Time Spent with Patient Time attestation: Total time spent providing and/or coordinating discharge services: Discharge coordination time: Greater than 30 minutes Quality: Stroke Does the patient have a stroke diagnosis?: No Physical Exam Vital Signs: Vital Signs: Last Vital Signs Temp 98.7 F 06/18/21 07:34 Pulse 82 06/18/21 07:34 Resp 18 06/18/21 07:34 BP 166/76 H 06/18/21 07:34 Pulse Ox 99 06/18/21 07:34 BMI result Body Mass Index 36.7 ? Appearance: Alert.? Oriented X3.? not in distress.? Eyes: Pupils equal, round and reactive to light.? Sclera nonicteric.? ENT: Pharynx normal.? Moist mucous membranes. cvs: rrr, [id number]. res: clear to auscultation ,no rhonchii or wheezing abd: no rebound or guarding ,nt, bs present. ext pulses present , no cyanosis right foot--cellulitis and ulcer area seems improving , no drainage or flacutation neuro: axo3 , nonfocal. DS: Data Data Completed and Pending Completed studies during hospitalization [Text1]: Procedures Fluoroscopy of Aorta and Bilateral Lower Extremity Arteries (02/11/21) Labs on day of discharge: Laboratory Results - last 24 hr 06/17/21 06/17/21 06/17/21 13:32 18:23 19:35 POC Glucose 255 H 290 H 344 H 06/18/21 07:34 POC Glucose 212 H Preliminary micro results at discharge 06/16/21 22:36 Blood Culture - Preliminary Blood - Venous No growth after 24 hours. 06/16/21 22:36 Blood Culture - Preliminary Blood - Venous No growth after 24 hours. Additional Comments Additional comments: MR/MR foot RT wo/w con IMPRESSION: 1. Findings in the soft tissues of the second-fifth toes, suggestive of cellulitis. No organized fluid collection or abscess is seen in the soft tissues. ? 2. No convincing evidence of osteomyelitis at this stage. Follow-up imaging for reassessment as clinically warranted. ? 3. Findings in the intrinsic muscles of the foot, probably reflecting sequela of denervation. US/US arterial duplex LE RT IMPRESSION: No evidence of significant arterial obstruction is present within the visualized arterial tree from the level of the groin to the calf showing no significant change since most recent prior study dated 02/12/2021. Discharge Plan Discharge Patient Disposition: Home Health Service Discharge Diagnosis: foot cellulitis Referrals: [facility] [Other] - 1 Day ([facility] NURSE WILL PROVIDE CARE/DRESSINGS SPECIFIC FOR PICC LINE ONLY. AN [facility] NURSE WILL CALL [facility]'S PHONE TO DO A VIRTUAL VISIT FOR YOUR FIRST AT HOME VISIT FRIDAY 06/23. ) Farhana Ellison MD [Primary Care Provider] - 1 Week John Peguero MD [Physician] - 1 Week (follow up outpatiently) Angelia Pineda MD [Physician] - 1 Week (follow up in 1week.) Discharge Medications: New docusate sodium 100 mg Capsule 100 mg PO DAILY PRN (Reason: Constipation) Qty: 30 0RF linezolid 600 mg Tablet 600 mg PO Q12H Qty: 82 0RF Continued mecobalamin (vitamin B12) 1,000 mcg tablet,disintegrating 1,000 mcg sublingual DAILY Qty: 30 2RF Rx Instructions: place tablet under tongue and allow to dissolve for at least30 secs before swallowing Lantus U-100 Insulin 50 units BEDTIME 0RF insulin aspart U-100 [Novolog U-100 Insulin aspart] 100 unit/mL solution 20 unit subcut TIDAC 0RF atorvastatin 80 mg tablet 1 tab PO BEDTIME 0RF gabapentin 300 mg capsule 1 cap PO TID 0RF amlodipine 10 mg tablet 1 tab PO DAILY 0RF aspirin 81 mg Tablet,Chewable 81 mg PO DAILY 0RF Discharge Orders: Discharge Order (Routine); Ordered 06/22/21 Ordered By: Ritchie Ho Diet: advance to usual diet Activity on Discharge: As tolerated Stand Alone Forms: Patient Portal Discharge page Other Ambulatory Orders: Basic Metabolic Panel (Routine) Timeframe: 1 Week Facility: [facility] - Location: Laboratory Ordered By: Jesusita Gonzalez Complete Blood Count no Diff (Routine) Timeframe: 1 Week Facility: [facility] - Location: Laboratory Ordered By: Jesusita Gonzalez Creatine Kinase Total (Routine) Timeframe: 1 Week Facility: [facility] - Location: Laboratory Ordered By: Jesusita Gonzalez C Reactive Protein (Routine) Timeframe: 1 Week Facility: [facility] - Location: Laboratory Ordered By: Jesusita Gonzalez Erythrocyte Sedimentation Rate (Routine) Timeframe: 1 Week Facility: [facility] - Location: Laboratory Ordered By: Jesusita Gonzalez Liver Panel (Routine) Timeframe: 1 Week Facility: [facility] - Location: Laboratory Ordered By: Jesusita Gonzalez Activity Restrictions/Additional Instructions: Apply Xeroform to right 3rd, 4th, and 5th toe open blisters, cover with gauze and roll gauze. Left amp site diabetic ulcer- Woundres gel covered with gauze and roll gauze. Follow up with wound clinic. Care Plan Goals: Patient came to the hospital because of right foot cellulitis-started on IV antibiotics seems to be improving seen by ID and vascular and Foot MRIs was done: Seems to be cellulitis. Seen by infectious disease and vascular: Patient was switched to iv antibiotic going home with that. In addition patient is to follow up outpatient with wound care patient is aware of that. please check cbc , BMP, CPK, liver panel, ESR, CRP we have weekly while on antibiotics. Health Concerns: As above. Plan of Treatment: As above. Assessment: as above. Discharge Date/Time: 06/22/21 15:16
[2021-06-18] MEDS: Amoxicillin/Potassium Clav 875 MG TABLET PO (11:23)
[2021-06-18] MEDS: traMADoL HCL 50 MG TABLET 25 MG PO (11:23)
--- NOTE | 2021-06-18 11:43 | PC.NURSE ---
Skin/wound assessment completed. patient has open blisters to 3rd, 4th, and 5th toes, covered with Xeroform, gauze and roll gauze. Patient has a diabetic ulcer to left amp site, silver alginate applied covered with gauze and roll gauze.
[2021-06-18 11:47] LABS: Glucose, Whole Blood 200 mg/dL (60-115)
--- NOTE | 2021-06-18 12:03 | HO.PM.IMPN ---
Subjective Subjective Date of Service: 06/18/21 Interval History: foot cellulitis Review of Systems Seems similar to yesterday but may be slightly improving Denies any chest pain shortness of breath abdominal pain or fever or chills Physical Exam Vital Signs: Vital Signs: Last Vital Signs Temp 98.6 F 06/18/21 11:27 Pulse 81 06/18/21 11:27 Resp 18 06/18/21 11:27 BP 153/78 H 06/18/21 11:27 Pulse Ox 96 06/18/21 11:27 BMI result Body Mass Index 36.7 Appearance: Alert.? Oriented X3.? not in distress.? Eyes: Pupils equal, round and reactive to light.? Sclera nonicteric.? ENT: Pharynx normal.? Moist mucous membranes. cvs: rrr, [id number]. res: clear to auscultation ,no rhonchii or wheezing abd: no rebound or guarding ,nt, bs present. ext pulses present , no cyanosis right foot--thirst skin changes, ulcers /open wound, and skin sloughing of the for right toes,? some bloody drainage. neuro: axo3 , nonfocal. Objective Data Active Medications Acetaminophen (Acetaminophen 325 Mg Tablet) 650 mg PO Q6H PRN PRN Reason: Pain, Mild (Pain Scale 1-3) Last Admin: 06/18/21 07:48 Dose: 650 mg Documented by: IVANA Amlodipine Besylate (Amlodipine Besylate 10 Mg Tablet) 10 mg PO DAILY [facility]; Protocol Last Admin: 06/18/21 07:48 Dose: 10 mg Documented by: IVANA Amoxicillin/Clavulanate Potassium (Amoxicillin/Potassium Clav 875 Mg Tablet) 875 mg PO Q12H [facility] Last Admin: 06/18/21 11:23 Dose: 875 mg Documented by: IVANA Atorvastatin Calcium (Atorvastatin Calcium 80 Mg Tablet) 80 mg PO BEDTIME [facility] Last Admin: 06/17/21 20:14 Dose: 80 mg Documented by: MARTIN Cyanocobalamin (Cyanocobalamin (Vitamin B-12) 1,000 Mcg Tablet) 1,000 mcg PO DAILY [facility] Last Admin: 06/18/21 07:48 Dose: 1,000 mcg Documented by: IVANA Dextrose (Dextrose 50 % 25 Gm/50 Ml Syringe) 25 gm IVPUSH Q15M PRN; Protocol PRN Reason: per Hypoglycemia Standing Ord. Docusate Sodium (Docusate Sodium 100 Mg Capsule) 100 mg PO DAILY PRN PRN Reason: Constipation Doxycycline Hyclate (Doxycycline Hyclate 100 Mg Tablet) 100 mg PO Q12H [facility] Last Admin: 06/18/21 11:23 Dose: 100 mg Documented by: IVANA Gabapentin (Gabapentin 300 Mg Capsule) 300 mg PO TID [facility] Last Admin: 06/18/21 07:48 Dose: 300 mg Documented by: IVANA Glucose (Glucose Gel 15 Gm Gel..Gram.) 15 gm PO Q15M PRN; Protocol PRN Reason: per Hypoglycemia Standing Ord. Insulin Glargine (Insulin Glargine,Hum.Rec.Anlog 100 Unit/Ml 10 Ml Vial) 55 unit SUBCUT BEDTIME [facility] Last Admin: 06/17/21 20:14 Dose: 55 unit Documented by: MARTIN Insulin Human Lispro (Insulin Lispro 100 Unit/Ml 3 Ml Vial) 0 unit SUBCUT QIDACHS [facility]; Protocol Last Admin: 06/18/21 11:31 Dose: 2 unit Documented by: IVANA Metoprolol Tartrate (Metoprolol Tartrate 25 Mg Tablet) 25 mg PO BID [facility]; Protocol Last Admin: 06/18/21 07:48 Dose: 25 mg Documented by: IVANA Ondansetron HCl (Ondansetron Hcl 4 Mg/2 Ml Vial) 4 mg IVPUSH Q8H PRN PRN Reason: Nausea and Vomiting Pharmacy Consult (Consult Rx Vancomycin Dosing) 1 each MISCELLANE DAILY PRN PRN Reason: Consult order Sodium Chloride (0.9 % Sodium Chloride Flush 3 Ml Syringe) 3 ml IVFLUSH QSHIFT [facility] Last Admin: 06/18/21 07:49 Dose: 3 ml Documented by: IVANA Tramadol HCl (Tramadol Hcl 50 Mg Tablet) 25 mg PO Q6H PRN PRN Reason: Pain, Mild (Pain Scale 1-3) Last Admin: 06/18/21 11:23 Dose: 25 mg Documented by: IVANA Labs CBC & Chem 7: 06/17/21 07:19 06/18/21 14:19 Labs: Laboratory Results - last 24 hr 06/17/21 06/17/21 06/17/21 13:32 18:23 19:35 POC Glucose 255 H 290 H 344 H 06/18/21 06/18/21 07:34 11:26 POC Glucose 212 H 200 H Microbiology Microbiology Results: Microbiology 06/16/21 22:36 Blood Culture - Preliminary Blood - Venous No growth after 24 hours. 06/16/21 22:36 Blood Culture - Preliminary Blood - Venous No growth after 24 hours. Assessment and Plan (1) Diabetic infection of right foot: Status: Acute Plan 51 y/of pt with hx of DM? as well as PAD presents to the hospital? with complaints of right foot wound 1. diabetic foot infection, hx of PAD-? though to be likely secondary to osteomyelitis -? has elevated ESR and CRP -? patient has leukocytosis, afebrile, no elevation of lactic acid continue? IV antibiotics, obtain MRI of right foot, arterial Doppler ordered as well in the setting of PAD ID and vascular eval saw the patient Id recomended -iv ertapenem, blood culture neg @24hrs -may need picc line once blood cultures neg@48hrs. vascular saw the patient -seems ? cellulitis , dopplex reviewed by vascular seems adrianna 2.? diabetes uncontrolled: ?fs running from 200-250 range fs with adjusted? sliding scale insulin, diabetic diet, continue home Lantus 3.? hypertension: uncontrolled ?continue amlodipine, added metoprolol moniter blood pressure closely. 4. hyperlipidemia: continue statin. 5.PAD:Continue asa, statin 6. morbid obesity:? Encouraged to lose weight. ?DVT prophylaxis:? Lovenox Above management discussed with patient-patient understand and in agreement with above plan . Quality Stroke Does the patient have a stroke diagnosis?: No VTE Prior VTE?: No VTE Risk Level:: Medical - moderate - high VTE Device Contraindication: N/A - Device Ordered VTE Drug Contraindication: Treatment Not Indicated
--- NOTE | 2021-06-18 14:07 | P.CDIC_ITS ---
CDI Concurrent Query Documentation Clarification: PHYSICIAN'S DOCUMENTATION REQUEST Date of Query: 06/18/21 1404 Patient Name: Staci Shirley Admit Date: 06/16/21 Dear Doctor, A review of the medical record indicates additional documentation may be needed. Please review below and update the documentation accordingly. Clinical Indicators: Documentation includes the conditions of Cellulitis and Diabetes Mellitus Additional clinical indicators in the record include: Risk Factors/Clinical Indicators/Treatments diabetic foot pain per surgery: no open wounds Per DC note 06/18/21: right foot cellulitis-started on IV antibiotics Please clarify the relationship between these conditions: * Yes, Cellulitis is related to / associated with / due to Diabetes Mellitus * No, Cellulitis is not related to / associated with / due to Diabetes Mellitus * Unable to determine Use of terms such as suspected, likely, concern for, or probable (associated with a specific diagnosis that is being evaluated, monitored, or treated as if it exists) are acceptable and can be coded in the inpatient setting, when documented at the time of discharge. Thank you, Genoveva Nolasco RN Extension: [phone] Please use your independent medical judgment in providing your response. THIS QUERY IS PART OF THE PERMANENT MEDICAL RECORD Provider Response: Other Other Diagnosis: cellulitis right foot a ssociated with dm
[2021-06-18 14:47] LABS: Creatinine Clr Calc Pharmacy 68.6; Estimated Glomerular Filt Rate 57
--- NOTE | 2021-06-18 14:56 | PM.CNGS ---
History of Present Illness Consult details Consult date: 06/18/21 Reason for consult: wound care Narrative: Very pleasant 51-year-old female with a history of peripheral vascular disease and diabetes presents for nonhealing right lower extremity ulcer. She was treated in the past for the left lower extremity and has undergone transmetatarsal amputation. She now presents for right foot evaluation after she hit it on a washing machine. There was a significant amount of blood. She presented to the ER. She has been seen by General surgery. She has undergone noninvasive testing. She now presents to us for vascular evaluation Review of Systems Review of Systems: Yes all other systems are reviewed and are negative Constitutional: Constitutional: Reports no additional constitutional complaints ENT: Reports Normal hearing present Cardiovascular: Cardiovascular: Denies chest pain, Denies chest pain at rest, Denies chest pain with activity and Denies pedal edema Respiratory: Respiratory: Denies cough Gastrointestinal: Gastrointestinal: Denies abdominal pain Musculoskeletal: Musculoskeletal: Denies abnormal gait, Denies muscle cramps and Denies radiating pain into limb Integumentary/Breasts: Skin/Breast: Denies skin ulcer and Denies wounds Neurologic: Reports Normal hearing present and Denies abnormal gait Psychiatric: Psychiatric: Reports no additional psychiatric complaints PMFSH Past Medical History Medical History Abscess Amputated toe of left foot Amputation of left foot BMI 39.0-39.9,adult Chronic heart failure with preserved ejection fraction (HFpEF) Chronic osteomyelitis of foot Diabetes Diabetic foot infection Diabetic foot infection Essential hypertension High cholesterol Hyperlipidemia Hypertension Insulin dependent diabetes mellitus Neuropathy Obesity Osteomyelitis PAD (peripheral artery disease) Type 2 diabetes mellitus with unspecified complications Uncontrolled diabetes mellitus Vitamin B12 deficiency VRE (vancomycin resistant enterococcus) culture positive Functional capacity: independent ambulation Family History Family History Mother Diabetes Hypertension Disk prolapse Father Diabetes Hypertension Sister No problems noted. Brother No problems noted. Daughter No problems noted. Son No problems noted. Surgical History Surgical History H/O spinal fusion History of section History of tubal ligation Social History Social History Household Members: Spouse Household Members Other:: Housing: Apartment Do you presently have visiting nurse or other home services: Yes Alcohol intake: never Patient Tobacco Use Status: Never used Tobacco Advance Directives Date on File: 02/15/21 service: No Current occupational status: unemployed Meds Allergies Allergy/AdvReac Type Severity Reaction Status Date / Time No Known Allergies Allergy Verified 06/16/21 21:17 [No Known Allergies*] Active Medications: Current Medications Acetaminophen (Acetaminophen 325 Mg Tablet) 650 mg PO Q6H PRN PRN Reason: Pain, Mild (Pain Scale 1-3) Last Admin: 06/18/21 07:48 Dose: 650 mg Documented by: Amlodipine Besylate (Amlodipine Besylate 10 Mg Tablet) 10 mg PO DAILY ANGÉLICA; Protocol Last Admin: 06/18/21 07:48 Dose: 10 mg Documented by: Amoxicillin/Clavulanate Potassium (Amoxicillin/Potassium Clav 875 Mg Tablet) 875 mg PO Q12H ANGÉLICA Last Admin: 06/18/21 11:23 Dose: 875 mg Documented by: Atorvastatin Calcium (Atorvastatin Calcium 80 Mg Tablet) 80 mg PO BEDTIME REPLACED BY [facility] Last Admin: 06/17/21 20:14 Dose: 80 mg Documented by: Cyanocobalamin (Cyanocobalamin (Vitamin B-12) 1,000 Mcg Tablet) 1,000 mcg PO DAILY ANGÉLICA Last Admin: 06/18/21 07:48 Dose: 1,000 mcg Documented by: Dextrose (Dextrose 50 % 25 Gm/50 Ml Syringe) 25 gm IVPUSH Q15M PRN; Protocol PRN Reason: per Hypoglycemia Standing Ord. Docusate Sodium (Docusate Sodium 100 Mg Capsule) 100 mg PO DAILY PRN PRN Reason: Constipation Doxycycline Hyclate (Doxycycline Hyclate 100 Mg Tablet) 100 mg PO Q12H REPLACED BY [facility] Last Admin: 06/18/21 11:23 Dose: 100 mg Documented by: Gabapentin (Gabapentin 300 Mg Capsule) 300 mg PO TID ANGÉLICA Last Admin: 06/18/21 14:24 Dose: 300 mg Documented by: Glucose (Glucose Gel 15 Gm Gel..Gram.) 15 gm PO Q15M PRN; Protocol PRN Reason: per Hypoglycemia Standing Ord. Insulin Glargine (Insulin Glargine,Hum.Rec.Anlog 100 Unit/Ml 10 Ml Vial) 55 unit SUBCUT BEDTIME REPLACED BY [facility] Last Admin: 06/17/21 20:14 Dose: 55 unit Documented by: Insulin Human Lispro (Insulin Lispro 100 Unit/Ml 3 Ml Vial) 0 unit SUBCUT QIDACHS REPLACED BY [facility]; Protocol Last Admin: 06/18/21 11:31 Dose: 2 unit Documented by: Metoprolol Tartrate (Metoprolol Tartrate 25 Mg Tablet) 25 mg PO BID REPLACED BY [facility]; Protocol Last Admin: 06/18/21 07:48 Dose: 25 mg Documented by: Ondansetron HCl (Ondansetron Hcl 4 Mg/2 Ml Vial) 4 mg IVPUSH Q8H PRN PRN Reason: Nausea and Vomiting Pharmacy Consult (Consult Rx Vancomycin Dosing) 1 each MISCELLANE DAILY PRN PRN Reason: Consult order Sodium Chloride (0.9 % Sodium Chloride Flush 3 Ml Syringe) 3 ml IVFLUSH [facility] Last Admin: 06/18/21 07:49 Dose: 3 ml Documented by: Tramadol HCl (Tramadol Hcl 50 Mg Tablet) 25 mg PO Q6H PRN PRN Reason: Pain, Mild (Pain Scale 1-3) Last Admin: 06/18/21 11:23 Dose: 25 mg Documented by: Home Medications Medication Instructions Recorded Confirmed Last Taken Type Lantus U-100 Insulin 50 units BEDTIME 03/19/20 06/17/21 1 Day Ago History ~06/16/21 amlodipine 10 mg tablet 1 tab PO DAILY 03/19/20 06/17/21 1 Day Ago History ~06/16/21 atorvastatin 80 mg tablet 1 tab PO BEDTIME 03/19/20 06/17/21 1 Day Ago History ~06/16/21 gabapentin 300 mg capsule 1 cap PO TID 03/19/20 06/17/21 1 Day Ago History ~06/16/21 insulin aspart U-100 100 unit/mL 20 unit SUBCUT TIDAC 03/19/20 06/17/21 1 Day Ago History subcutaneous solution (Novolog ~06/16/21 U-100 Insulin aspart) aspirin 81 mg chewable tablet 81 mg PO DAILY 06/17/21 06/17/21 06/16/21 History Physical Exam Vital Signs: Vital Signs: Last Vital Signs Temp 98.6 F 06/18/21 11:27 Pulse 81 06/18/21 11:27 Resp 18 06/18/21 11:27 BP 153/78 H 06/18/21 11:27 Pulse Ox 96 06/18/21 11:27 BMI result Body Mass Index 36.7 Const: General: cooperative, healthy appearing and comfortable Orientation/consciousness: oriented to person, oriented to place and oriented to time HENMT: Head: Yes normal to inspection Neck: Neck: Yes normal visual inspection Carotids: no bruits Chest: Chest palpation & inspection: normal inspection of the chest Resp: Effort & Inspection: normal respiratory effort and able to speak in complete sentences Auscultation: clear to auscultation bilaterally, no crackles, no rales, no rhonchi and no wheezes Cardio: Rate: regular rate Rhythm: regular rhythm Heart sounds: S1 normal heart sound present and S2 normal heart sound present Bruits: no carotid bruits Peripheral pulses: dorsalis pedis present (Bilateral DP signals) GI: Inspection: Yes normal to inspection Skin: Wounds: wounds noted (Right foot) Hair: normal Neuro: General: oriented to person, oriented to place and oriented to time Cranial nerves: Yes CN's II-XII intact bilaterally and Yes Normal hearing present Cognition (Neuro): normal cognition Motor exam (neuro): 5/5 motor strength present throughout Extrem: Other: venous exam: No significant superficial varicosities or spider telangiectasias, minimal edema General: No clubbing, No cyanosis and No edema Psych: Appearance: grossly normal Mental Status: mental status grossly normal Speech and movement: Normal speech and movement present Results Labs Result diagrams: 06/17/21 07:19 06/18/21 14:19 Labs: Abnormal lab results 06/17/21 06/17/21 06/18/21 Range/Units 18:23 19:35 07:34 POC Glucose 290 H 344 H 212 H (60-115) mg/dL 06/18/21 Range/Units 11:26 POC Glucose 200 H (60-115) mg/dL [facility] 06/18/21 14:19 Creatinine 1.03 All other labs normal. Assessment and Plan (1) PAD (peripheral artery disease): Status: Acute Plan In short patient has nonhealing right foot ulcer with surrounding cellulitis. At the current time would agree with antibiotics. Noninvasive testing reviewed and does not appear to have any significant arterial disease. [facility] and can follow up with them as an outpatient. She does have routine surveillance follow-up with us. We will follow on an as-needed basis. Thank you for allowing us to assist in her care. If there are any questions or concerns please do not hesitate to contact us. Procedures Date of Service Date of Service: 06/18/21
--- NOTE | 2021-06-18 15:42 | MHC.CM.PN ---
EMR REVIEWED, PT ADMITTED W/DIABETIC FOOT ULCER, CM MET W/PT WHO REPORTS SHE IS MAINLY INDEP HOWEVER HAS A [employer] RIGHT OF WAY BUYER FOR 24HRS/WK, PT REPORT SHE HAS A WALKER AND SHOWER CHAIR SHE DOES NOT USE, PT REPORTS IF SHE NEEDS IV ABX SHE PREFERS TO DO THIS AT HOME AND ALSO REPORTS SHE HAS DONE THIS IN THE PAST AT HOME, PT REPORTS SHE IS STILL ACTIVE W/[facility] HOWEVER [facility] LIA[facility] REPORTS SHE IS NO LONGER ACTIVE AND THAT THEY ARE UNABLE TO PROVIDE SERVICES FOR PT D/T NEEDS AND AVAILABILITY. PT HAS NO PREFERENCE FOR HOME INFUSION IF NEEDED, PCP VERIFIED [facility] AND HCP COMPLETED ON PREVIOUS ADMISSION. D/C HOME VS HOME W/IV ABX AND HI, FAMILY FOR TRANSPORT.
--- NOTE | 2021-06-18 16:12 | P.CNID_ITS ---
History of Present Illness Data of Consult Service Date: 06/18/21 Requesting physician: Jesusita Gonzalez Primary Care Provider: Farhana Ellison MD [facility] Reason for consult: right diabetic foot infection She presents with redness and swelling second through fifth digit 3-5 days She has this redness in right foot. She has had infections in feet and I had seen her before for left foot infection She has had VRE and has taken linezolid. MRI shows cellulitis only. Review of Systems Review of Systems: Yes all other systems are reviewed and are negative [facility] Past Medical History Medical History Abscess Amputated toe of left foot Amputation of left foot BMI 39.0-39.9,adult Chronic heart failure with preserved ejection fraction (HFpEF) Chronic osteomyelitis of foot Diabetes Diabetic foot infection Diabetic foot infection Essential hypertension High cholesterol Hyperlipidemia Hypertension Insulin dependent diabetes mellitus Neuropathy Obesity Osteomyelitis PAD (peripheral artery disease) Type 2 diabetes mellitus with unspecified complications Uncontrolled diabetes mellitus Vitamin B12 deficiency VRE (vancomycin resistant enterococcus) culture positive Functional capacity: independent ambulation Family History Family History Mother Diabetes Hypertension Disk prolapse Father Diabetes Hypertension Sister No problems noted. Brother No problems noted. Daughter No problems noted. Son No problems noted. Family history: reviewed and not pertinent Surgical History Surgical History H/O spinal fusion History of section History of tubal ligation Social History Social History Household Members: Spouse Household Members Other:: Housing: Apartment Do you presently have visiting nurse or other home services: Yes Alcohol intake: never Patient Tobacco Use Status: Never used Tobacco Advance Directives Date on File: 02/15/21 service: No Current occupational status: unemployed Meds Allergies Allergy/AdvReac Type Severity Reaction Status Date / Time No Known Allergies Allergy Verified 06/16/21 21:17 [No Known Allergies*] Active Medications: Current Medications Acetaminophen (Acetaminophen 325 Mg Tablet) 650 mg PO Q6H PRN PRN Reason: Pain, Mild (Pain Scale 1-3) Last Admin: 06/18/21 07:48 Dose: 650 mg Documented by: Amlodipine Besylate (Amlodipine Besylate 10 Mg Tablet) 10 mg PO DAILY [facility]; Protocol Last Admin: 06/18/21 07:48 Dose: 10 mg Documented by: Atorvastatin Calcium (Atorvastatin Calcium 80 Mg Tablet) 80 mg PO BEDTIME [facility] Last Admin: 06/17/21 20:14 Dose: 80 mg Documented by: Cyanocobalamin (Cyanocobalamin (Vitamin B-12) 1,000 Mcg Tablet) 1,000 mcg PO DAILY [facility] Last Admin: 06/18/21 07:48 Dose: 1,000 mcg Documented by: Dextrose (Dextrose 50 % 25 Gm/50 Ml Syringe) 25 gm IVPUSH Q15M PRN; Protocol PRN Reason: per Hypoglycemia Standing Ord. Docusate Sodium (Docusate Sodium 100 Mg Capsule) 100 mg PO DAILY PRN PRN Reason: Constipation Gabapentin (Gabapentin 300 Mg Capsule) 300 mg PO TID [facility] Last Admin: 06/18/21 14:24 Dose: 300 mg Documented by: Glucose (Glucose Gel 15 Gm Gel..Gram.) 15 gm PO Q15M PRN; Protocol PRN Reason: per Hypoglycemia Standing Ord. Meropenem 1 gm/ Sodium (Chloride) 100 mls @ 200 mls/hr IV Q8H [facility] Insulin Glargine (Insulin Glargine,Hum.Rec.Anlog 100 Unit/Ml 10 Ml Vial) 55 unit SUBCUT BEDTIME [facility] Last Admin: 06/17/21 20:14 Dose: 55 unit Documented by: Insulin Human Lispro (Insulin Lispro 100 Unit/Ml 3 Ml Vial) 0 unit SUBCUT QIDACHS [facility]; Protocol Last Admin: 06/18/21 11:31 Dose: 2 unit Documented by: Metoprolol Tartrate (Metoprolol Tartrate 25 Mg Tablet) 25 mg PO BID [facility]; Protocol Last Admin: 06/18/21 07:48 Dose: 25 mg Documented by: Ondansetron HCl (Ondansetron Hcl 4 Mg/2 Ml Vial) 4 mg IVPUSH Q8H PRN PRN Reason: Nausea and Vomiting Pharmacy Consult (Consult Rx Vancomycin Dosing) 1 each MISCELLANE DAILY PRN PRN Reason: Consult order Sodium Chloride (0.9 % Sodium Chloride Flush 3 Ml Syringe) 3 ml IVFLUSH QSHIFT [facility] Last Admin: 06/18/21 07:49 Dose: 3 ml Documented by: Tramadol HCl (Tramadol Hcl 50 Mg Tablet) 25 mg PO Q6H PRN PRN Reason: Pain, Mild (Pain Scale 1-3) Last Admin: 06/18/21 11:23 Dose: 25 mg Documented by: Home Medications Medication Instructions Recorded Confirmed Last Taken Type Lantus U-100 Insulin 50 units BEDTIME 03/19/20 06/17/21 1 Day Ago History ~06/16/21 amlodipine 10 mg tablet 1 tab PO DAILY 03/19/20 06/17/21 1 Day Ago History ~06/16/21 atorvastatin 80 mg tablet 1 tab PO BEDTIME 03/19/20 06/17/21 1 Day Ago History ~06/16/21 gabapentin 300 mg capsule 1 cap PO TID 03/19/20 06/17/21 1 Day Ago History ~06/16/21 insulin aspart U-100 100 unit/mL 20 unit SUBCUT TIDAC 03/19/20 06/17/21 1 Day Ago History subcutaneous solution (Novolog ~06/16/21 U-100 Insulin aspart) aspirin 81 mg chewable tablet 81 mg PO DAILY 06/17/21 06/17/21 06/16/21 History Physical Exam Vital Signs: Vital Signs: Last Vital Signs Temp 97.9 F 06/18/21 15:53 Pulse 85 06/18/21 15:53 Resp 16 06/18/21 15:53 BP 142/67 H 06/18/21 15:53 Pulse Ox 99 06/18/21 15:53 BMI result Body Mass Index 36.7 Const: General: cooperative HENMT: Head: Yes normal to inspection Mouth: Normal oral and palatal mucosa present Resp: Effort & Inspection: normal respiratory effort Cardio: Rate: regular rate Rhythm: regular rhythm GI: Palpation (GI): Soft to palpation and nontender Skin: General skin exam: no rashes or lesions noted Neuro: Other: neuropathy feet Extrem: Other: right foot toes 2-5 slightly reddened and swollen Results Labs CBC & Chem 7: 06/17/21 07:19 06/22/21 05:35 Labs: BMP 06/18/21 14:19 Creatinine 1.03 Microbiology Microbiology Results: Microbiology 06/16/21 22:36 Blood - Venous Blood Culture - Preliminary No growth after 24 hours. 06/16/21 22:36 Blood - Venous Blood Culture - Preliminary No growth after 24 hours. Assessment and Plan (1) Diabetic infection of right foot: Status: Acute She has organisms unknown VRE in past I dont think she will respond well to only oral therapy Plan Ertapenem cover gram negative and anerobes. Linezolid po cover VRE if there Both antibiotics for six weeks Can follow in office. Weekly CBC and creatinine and ESR.
[2021-06-18 16:38] LABS: Glucose, Whole Blood 356 mg/dL (60-115)
[2021-06-18] MEDS: Linezolid 600 MG TABLET PO (18:07)
[2021-06-18 20:18] LABS: Vancomycin Trough 7.9 mcg/mL (10.0-20.0)
[2021-06-18 20:24] LABS: Glucose, Whole Blood 249 mg/dL (60-115)
[2021-06-18] MEDS: Insulin Glargine,Hum.rec.anlog 100 UNIT/ML 10 ML VIAL 55 UNIT SUBCUT (20:38)
[2021-06-18] MEDS: Atorvastatin Calcium 80 MG TABLET PO (20:39)
[2021-06-19 03:58] VITALS: BP 138/63; PULSE 78; RESP 18; TEMP 36.2; O2SAT 94
[2021-06-19] MEDS: Linezolid 600 MG TABLET PO ×2 (05:26→17:19)
[2021-06-19 06:23] LABS: Creatinine Clr Calc Pharmacy 91.8; Estimated Glomerular Filt Rate > 60
[2021-06-19 07:28] VITALS: BP 138/64; PULSE 76; RESP 18; TEMP 36.9; O2SAT 95
[2021-06-19 07:38] LABS: Glucose, Whole Blood 151 mg/dL (60-115)
[2021-06-19] MEDS: Cyanocobalamin (Vitamin B-12) 1,000 MCG TABLET 1000 MCG PO (07:42)
[2021-06-19] MEDS: amLODIPine Besylate 10 MG TABLET PO (07:42)
[2021-06-19] MEDS: Metoprolol Tartrate 25 MG TABLET PO (07:43)
[2021-06-19] MEDS: Gabapentin 300 MG CAPSULE PO ×3 (07:43→21:04)
[2021-06-19] MEDS: traMADoL HCL 50 MG TABLET 25 MG PO ×2 (07:43→21:03)
[2021-06-19] MEDS: 0.9 % Sodium Chloride Flush 3 ML SYRINGE IVFLUSH ×3 (07:47→21:04)
[2021-06-19] MEDS: Insulin Lispro 100 UNIT/ML 3 ML VIAL SUBCUT ×4 (08:01→21:05)
--- NOTE | 2021-06-19 12:27 | P.PICC_ITS ---
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 Following completion of [place] Protocol the skin and soft tissues were anesthetized with 1% Lidocaine plain. Using ultrasound guidance, [RIGHT BASILIC] vein access was obtained ON FIRST ATTEMPT. Over an 0.018 wire through peel-away sheath, a [4FR SINGLE LUMEN] PICC line was positioned. Catheter length is [42CM] internal length, [0CM] external length, for a total trimmed length of [42CM]. The procedure was performed in [RM. 272]. Tip verification was performed by Rober Sands with Sherlock 3CG. Tip located in SVC. Ultrasound was used to document vein patency and for needle entry. A formal ultrasound picture and cardiac rhythm strip was recorded. Vascular Educational Technology Specialist has released the line for use and it is currently dressed with a StatLock, Tegaderm, and CHG disc. Verification has been performed for blood return and line patency. DR. MASTERSON WAS TIGGERCONNECTED ABOUT VENOUS ACCESS FLUSHING ORDERS BY Dorian LEONE RN Arm Circumference: [35CM] Equipment: [BARD POWER PICC SOLO] Catheter Type: [4FR SINGLE LUMEN PICC] Lot #[[id number]]
[2021-06-19 12:42] VITALS: BP 168/80; PULSE 79; RESP 18; TEMP 36; O2SAT 97
--- NOTE | 2021-06-19 12:44 | HO.PM.IMPN ---
Subjective Subjective Date of Service: 06/19/21 Interval History: dm foot infection Review of Systems foot seems similar to yesterday Physical Exam Vital Signs: Vital Signs: Last Vital Signs Temp 96.8 F 06/19/21 12:42 Pulse 79 06/19/21 12:42 Resp 18 06/19/21 12:42 BP 168/80 H 06/19/21 12:42 Pulse Ox 97 06/19/21 12:42 BMI result Body Mass Index 36.7 Appearance: Alert.? Oriented X3.? not in distress.? Eyes: Pupils equal, round and reactive to light.? Sclera nonicteric.? ENT: Pharynx normal.? Moist mucous membranes. cvs: rrr, [id number]. res: clear to auscultation ,no rhonchii or wheezing abd: no rebound or guarding ,nt, bs present. ext pulses present , no cyanosis right foot--thirst skin changes, ulcers /open wound, and skin sloughing of the for right toes,? some bloody drainage. neuro: axo3 , nonfocal. Objective Data Active Medications Acetaminophen (Acetaminophen 325 Mg Tablet) 650 mg PO Q6H PRN PRN Reason: Pain, Mild (Pain Scale 1-3) Last Admin: 06/18/21 07:48 Dose: 650 mg Documented by: IVANA Amlodipine Besylate (Amlodipine Besylate 10 Mg Tablet) 10 mg PO DAILY [facility]; Protocol Last Admin: 06/19/21 07:42 Dose: 10 mg Documented by: GRACIELA Atorvastatin Calcium (Atorvastatin Calcium 80 Mg Tablet) 80 mg PO BEDTIME [facility] Last Admin: 06/18/21 20:39 Dose: 80 mg Documented by: GHASSAN Cyanocobalamin (Cyanocobalamin (Vitamin B-12) 1,000 Mcg Tablet) 1,000 mcg PO DAILY [facility] Last Admin: 06/19/21 07:42 Dose: 1,000 mcg Documented by: GRACIELA Dextrose (Dextrose 50 % 25 Gm/50 Ml Syringe) 25 gm IVPUSH Q15M PRN; Protocol PRN Reason: per Hypoglycemia Standing Ord. Docusate Sodium (Docusate Sodium 100 Mg Capsule) 100 mg PO DAILY PRN PRN Reason: Constipation Gabapentin (Gabapentin 300 Mg Capsule) 300 mg PO TID [facility] Last Admin: 06/19/21 07:43 Dose: 300 mg Documented by: GRACIELA Glucose (Glucose Gel 15 Gm Gel..Gram.) 15 gm PO Q15M PRN; Protocol PRN Reason: per Hypoglycemia Standing Ord. Ertapenem 1 gm/ Sodium (Chloride) 50 mls @ 100 mls/hr IV DAILY [facility] Insulin Glargine (Insulin Glargine,Hum.Rec.Anlog 100 Unit/Ml 10 Ml Vial) 55 unit SUBCUT BEDTIME [facility] Last Admin: 06/18/21 20:38 Dose: 55 unit Documented by: GHASSAN Insulin Human Lispro (Insulin Lispro 100 Unit/Ml 3 Ml Vial) 0 unit SUBCUT QIDACHS [facility]; Protocol Last Admin: 06/19/21 08:01 Dose: 2 unit Documented by: MARIETTA Comments: for blood sugar of 151 Linezolid (Linezolid 600 Mg Tablet) 600 mg PO Q12H [facility] Last Admin: 06/19/21 05:26 Dose: 600 mg Documented by: GHASSAN Metoprolol Tartrate (Metoprolol Tartrate 25 Mg Tablet) 25 mg PO BID [facility]; Protocol Last Admin: 06/19/21 07:43 Dose: 25 mg Documented by: GRACIELA Ondansetron HCl (Ondansetron Hcl 4 Mg/2 Ml Vial) 4 mg IVPUSH Q8H PRN PRN Reason: Nausea and Vomiting Pharmacy Consult (Consult Rx Vancomycin Dosing) 1 each MISCELLANE DAILY PRN PRN Reason: Consult order Sodium Chloride (0.9 % Sodium Chloride Flush 3 Ml Syringe) [facility] Last Admin: 06/19/21 07:47 Dose: 3 ml Documented by: GRACIELA Sodium Chloride (0.9 % Sodium Chloride Flush 10 Ml Syringe) 5 ml IVFLUSH TID [facility] Tramadol HCl (Tramadol Hcl 50 Mg Tablet) 25 mg PO Q6H PRN PRN Reason: Pain, Mild (Pain Scale 1-3) Last Admin: 06/19/21 07:43 Dose: 25 mg Documented by: GRACIELA Labs CBC & Chem 7: 06/17/21 07:19 06/19/21 05:38 Labs: Laboratory Results - last 24 hr 06/18/21 06/18/21 06/18/21 14:19 16:26 19:44 Estim Creat Clear Calc 68.6 Estimated GFR 57 POC Glucose 356 H* Vancomycin Trough 7.9 L 06/18/21 06/19/21 06/19/21 20:19 05:38 07:33 Estim Creat Clear Calc 91.8 Estimated GFR > 60 POC Glucose 249 H 151 H Vancomycin Trough Microbiology Microbiology Results: Microbiology 06/16/21 22:36 Blood Culture - Preliminary Blood - Venous No growth after 48 hours. 06/16/21 22:36 Blood Culture - Preliminary Blood - Venous No growth after 48 hours. Assessment and Plan (1) Diabetic infection of right foot: Status: Acute Plan 51 y/of pt with hx of DM? as well as PAD presents to the hospital? with complaints of right foot wound 1. diabetic foot infection, hx of PAD-? though to be likely secondary to osteomyelitis -? has elevated ESR and CRP -? patient has leukocytosis, afebrile, no elevation of lactic acid continue? IV antibiotics, obtain MRI of right foot, arterial Doppler ordered as well in the setting of PAD ID and vascular eval saw the patient Id recomended -iv ertapenem, blood culture neg @24hrs -may need picc line placed -id with IV antibiotic at open for [address] of the foot infection, and linezolid also added for VRE concern. cpk added vascular saw the patient -seems ? cellulitis , dopplex reviewed by vascular seems fine 2.? diabetes uncontrolled: ?fs running from 200range continue sliding scale insulin, diabetic diet, continue home Lantus 3.? hypertension: uncontrolled ?continue amlodipine, metoprolol adjusted to 50 mg po bid. moniter blood pressure closely. 4. hyperlipidemia: continue statin. 5.PAD:Continue asa, statin 6. morbid obesity:? Encouraged to lose weight. ?DVT prophylaxis:? Lovenox Above management discussed with patient-patient understand and in agreement with above plan . patient picc line arranged , awaiting for home infusion set up , kindly review discharge meds and adjust if any chage need upon discharge. Quality Stroke Does the patient have a stroke diagnosis?: No VTE Prior VTE?: No VTE Risk Level:: Medical - moderate - high VTE Device Contraindication: N/A - Device Ordered VTE Drug Contraindication: Treatment Not Indicated
[2021-06-19 12:48] LABS: Glucose, Whole Blood 154 mg/dL (60-115)
--- NOTE | 2021-06-19 13:42 | MHC.CM.PN ---
patient has a new pic line inserted and finalization of medications will be eratpeneum 1 gm qd and linezold 600mg 1q12 hrs both for 6 weeks, [facility] to call patient with teaching and come to [facility] for teach . the following vnas declined secondary to ;staffing or out out of services area, or no ins contracts, ( [facility], [facility] , [facility], [facility], [facility], [facility], [facility],) more referrals [facility], [facility], [facility], [facility] WAITING FOR RESPONSE DISCHARGE PLAN- HOME WITH [facility] FOR IV ABX WILL NEED TEACH BEFORE D/C ALSO WILL RECIVED 1ST DOSE AT 09;00ON 06/20/21 THROUGH [facility] SPEAKING , WITH SOME YAKUT ) [facility] - SEVERAL REFERRALS SENT OUT WAITING FOR RESPONSE TRANSPORTATION FAMILY PCP DR BREA LANCASTER
--- NOTE | 2021-06-19 15:44 | HO.VASCPN ---
Subjective Subjective Date of Service: 06/19/21 Patient reports: no new complaints and feels better Interval history: Patient seen and examined. No significant events overnight. Reports that her right leg is feeling significantly better. Now for follow-up. Physical Exam Vital Signs: Vital Signs: Last Vital Signs Temp 96.8 F 06/19/21 12:42 Pulse 79 06/19/21 12:42 Resp 18 06/19/21 12:42 BP 168/80 H 06/19/21 12:42 Pulse Ox 97 06/19/21 12:42 BMI result Body Mass Index 36.7 Const: General: cooperative, healthy appearing and no acute distress Orientation/consciousness: oriented to person, oriented to place and oriented to time HENMT: Head: Yes normal to inspection Neck: Carotids: no bruits Chest: Chest palpation & inspection: normal inspection of the chest Resp: Effort & Inspection: normal respiratory effort and able to speak in complete sentences Auscultation: clear to auscultation bilaterally Cardio: Rate: regular rate Heart sounds: S1 normal heart sound present and S2 normal heart sound present GI: Inspection: Yes normal to inspection Skin: General skin exam: no rashes or lesions noted Wounds: wounds noted (Right 3rd 4th and 5th digit ulcers in webspace and dry eschar.) Neuro: General: oriented to person, oriented to place, oriented to time and CN's II-XI intact bilaterally Extrem: General: Yes normal to inspection, Yes full ROM and Yes no clubbing, cyanosis or edema Psych: Appearance: grossly normal and well kempt Speech and movement: Normal speech and movement present Affect: normal affect Progress Note: A&P Assessment and plan (1) PAD (peripheral artery disease): Status: Acute Plan In short patient has nonhealing ulcers of the right foot. Arterial flow appears to be within normal limits. Would recommend continued antibiotics and local wound care. In particular caution to dressings within the webspace. Thank you for allowing us to assist in her care. If there are any questions or concerns please do not hesitate to contact us. If patient is discharged please have her follow up within 2 weeks upon discharge with us. Fall Risk Details Current Medications: Current Medications Acetaminophen (Acetaminophen 325 Mg Tablet) 650 mg PO Q6H PRN PRN Reason: Pain, Mild (Pain Scale 1-3) Last Admin: 06/18/21 07:48 Dose: 650 mg Documented by: Amlodipine Besylate (Amlodipine Besylate 10 Mg Tablet) 10 mg PO DAILY [facility]; Protocol Last Admin: 06/19/21 07:42 Dose: 10 mg Documented by: Atorvastatin Calcium (Atorvastatin Calcium 80 Mg Tablet) 80 mg PO BEDTIME [facility] Last Admin: 06/18/21 20:39 Dose: 80 mg Documented by: Cyanocobalamin (Cyanocobalamin (Vitamin B-12) 1,000 Mcg Tablet) 1,000 mcg PO DAILY [facility] Last Admin: 06/19/21 07:42 Dose: 1,000 mcg Documented by: Dextrose (Dextrose 50 % 25 Gm/50 Ml Syringe) 25 gm IVPUSH Q15M PRN; Protocol PRN Reason: per Hypoglycemia Standing Ord. Docusate Sodium (Docusate Sodium 100 Mg Capsule) 100 mg PO DAILY PRN PRN Reason: Constipation Gabapentin (Gabapentin 300 Mg Capsule) 300 mg PO TID [facility] Last Admin: 06/19/21 07:43 Dose: 300 mg Documented by: Glucose (Glucose Gel 15 Gm Gel..Gram.) 15 gm PO Q15M PRN; Protocol PRN Reason: per Hypoglycemia Standing Ord. Meropenem 1 gm/ Sodium (Chloride) 100 mls @ 200 mls/hr IV Q8H [facility] Insulin Glargine (Insulin Glargine,Hum.Rec.Anlog 100 Unit/Ml 10 Ml Vial) 55 unit SUBCUT BEDTIME [facility] Last Admin: 06/18/21 20:38 Dose: 55 unit Documented by: Insulin Human Lispro (Insulin Lispro 100 Unit/Ml 3 Ml Vial) 0 unit SUBCUT QIDACHS [facility]; Protocol Last Admin: 06/19/21 12:53 Dose: 2 unit Documented by: Linezolid (Linezolid 600 Mg Tablet) 600 mg PO Q12H [facility] Last Admin: 06/19/21 05:26 Dose: 600 mg Documented by: Metoprolol Tartrate (Metoprolol Tartrate 50 Mg Tablet) 50 mg PO BID [facility]; Protocol Ondansetron HCl (Ondansetron Hcl 4 Mg/2 Ml Vial) 4 mg IVPUSH Q8H PRN PRN Reason: Nausea and Vomiting Pharmacy Consult (Consult Rx Vancomycin Dosing) 1 each MISCELLANE DAILY PRN PRN Reason: Consult order Sodium Chloride (0.9 % Sodium Chloride Flush 3 Ml Syringe) 3 ml IVFLUSH QSHIFT [facility] Last Admin: 06/19/21 07:47 Dose: 3 ml Documented by: Sodium Chloride (0.9 % Sodium Chloride Flush 10 Ml Syringe) 5 ml IVFLUSH TID [facility] Tramadol HCl (Tramadol Hcl 50 Mg Tablet) 25 mg PO Q6H PRN PRN Reason: Pain, Mild (Pain Scale 1-3) Last Admin: 06/19/21 07:43 Dose: 25 mg Documented by: Time Spent With Patient Time: Total time spent is greater than 50% in coordination of care (as documented) at patient's floor/unit and/or counseling patient: Time with patient: 15 - 24 minutes Procedures Date of Service Date of Service: 06/19/21 Quality Stroke Does the patient have a stroke diagnosis?: No VTE Prior VTE?: No VTE Risk Level:: Medical - moderate - high VTE Device Contraindication: N/A - Device Ordered VTE Drug Contraindication: Treatment Not Indicated
[2021-06-19] MEDS: 0.9 % Sodium Chloride Flush 10 ML SYRINGE 5 ML IVFLUSH ×2 (15:49→21:04)
[2021-06-19 15:58] VITALS: BP 166/77; PULSE 79; RESP 18; TEMP 36.2; O2SAT 97
--- NOTE | 2021-06-19 15:59 | MHC.CM.PN ---
Pt Received PICC today in anticipation of a return to home for IV ATB. VNA referrals updated and expanded as no accepting agency has been found d/t lack of staff, no [facility] contract or other non stated declination reasons. Will continue to pursue VNA.
[2021-06-19 16:07] LABS: Glucose, Whole Blood 203 mg/dL (60-115)
[2021-06-19 20:00] VITALS: BP 176/85; PULSE 85; RESP 18; TEMP 36; O2SAT 96
[2021-06-19 20:25] LABS: Glucose, Whole Blood 236 mg/dL (60-115)
[2021-06-19] MEDS: Insulin Glargine,Hum.rec.anlog 100 UNIT/ML 10 ML VIAL 55 UNIT SUBCUT (21:04)
[2021-06-19] MEDS: Atorvastatin Calcium 80 MG TABLET PO (21:04)
[2021-06-19] MEDS: Metoprolol Tartrate 50 MG TABLET PO (21:04)
[2021-06-19 23:27] VITALS: BP 168/77; PULSE 78; RESP 18; TEMP 36.7; O2SAT 98
[2021-06-20 03:39] VITALS: BP 146/73; PULSE 74; RESP 18; TEMP 36.8; O2SAT 94
[2021-06-20] MEDS: Linezolid 600 MG TABLET PO ×2 (03:43→16:31)
[2021-06-20] MEDS: traMADoL HCL 50 MG TABLET 25 MG PO ×2 (03:43→20:51)
[2021-06-20 06:19] LABS: Creatinine Clr Calc Pharmacy 84.2; Estimated Glomerular Filt Rate > 60
[2021-06-20 07:42] VITALS: BP 145/79; PULSE 72; RESP 16; TEMP 36.8; O2SAT 96
[2021-06-20 07:49] LABS: Glucose, Whole Blood 168 mg/dL (60-115)
[2021-06-20] MEDS: Insulin Lispro 100 UNIT/ML 3 ML VIAL SUBCUT ×3 (07:58→20:44)
[2021-06-20] MEDS: 0.9 % Sodium Chloride Flush 3 ML SYRINGE IVFLUSH ×2 (08:19→14:58)
[2021-06-20] MEDS: 0.9 % Sodium Chloride Flush 10 ML SYRINGE 5 ML IVFLUSH ×3 (08:20→22:33)
[2021-06-20] MEDS: Metoprolol Tartrate 50 MG TABLET PO ×2 (08:55→20:46)
[2021-06-20] MEDS: Gabapentin 300 MG CAPSULE PO ×3 (08:55→20:46)
[2021-06-20] MEDS: amLODIPine Besylate 10 MG TABLET PO (08:56)
[2021-06-20] MEDS: Cyanocobalamin (Vitamin B-12) 1,000 MCG TABLET 1000 MCG PO (08:56)
--- NOTE | 2021-06-20 10:45 | HO.PM.IMPN ---
Subjective Subjective Date of Service: 06/20/21 Interval History: cc: dfu interval history: no complaints Cardiovascular Cardiovascular: Reports no additional cardiovascular complaints Respiratory Respiratory: Reports no additional respiratory complaints Physical Exam Vital Signs: Vital Signs: Last Vital Signs Temp 98.3 F 06/20/21 07:42 Pulse 72 06/20/21 07:42 Resp 16 06/20/21 07:42 BP 145/79 H 06/20/21 07:42 Pulse Ox 96 06/20/21 07:42 BMI result Body Mass Index 36.7 Const General:?cooperative, healthy appearing and no acute distress Orientation/consciousness:?oriented to person, oriented to place and oriented to time HENMT Head:?Yes normal to inspection Neck Carotids:?no bruits Chest Chest palpation & inspection:?normal inspection of the chest Resp Effort & Inspection:?normal respiratory effort and able to speak in complete sentences Auscultation:?clear to auscultation bilaterally Cardio Rate:?regular rate Heart sounds:?S1 normal heart sound present and S2 normal heart sound present GI Inspection:?Yes normal to inspection Skin General skin exam:?no rashes or lesions noted Wounds:?wounds noted (Right 3rd 4th and 5th digit ulcers in webspace and dry eschar.) Neuro General:?oriented to person, oriented to place, oriented to time and CN's II-XI intact bilaterally Extrem General:?Yes normal to inspection, Yes full ROM and Yes no clubbing, cyanosis or edema Psych Appearance:?grossly normal and well kempt Speech and movement:?Normal speech and movement present Affect:?normal affect Objective Data Active Medications Acetaminophen (Acetaminophen 325 Mg Tablet) 650 mg PO Q6H PRN PRN Reason: Pain, Mild (Pain Scale 1-3) Last Admin: 06/18/21 07:48 Dose: 650 mg Documented by: IVANA Amlodipine Besylate (Amlodipine Besylate 10 Mg Tablet) 10 mg PO DAILY [facility]; Protocol Last Admin: 06/20/21 08:56 Dose: 10 mg Documented by: MARIETTA Comments: 150/67, 78 Atorvastatin Calcium (Atorvastatin Calcium 80 Mg Tablet) 80 mg PO BEDTIME [facility] Last Admin: 06/19/21 21:04 Dose: 80 mg Documented by: TYRA Cyanocobalamin (Cyanocobalamin (Vitamin B-12) 1,000 Mcg Tablet) 1,000 mcg PO DAILY [facility] Last Admin: 06/20/21 08:56 Dose: 1,000 mcg Documented by: MARIETTA Dextrose (Dextrose 50 % 25 Gm/50 Ml Syringe) 25 gm IVPUSH Q15M PRN; Protocol PRN Reason: per Hypoglycemia Standing Ord. Docusate Sodium (Docusate Sodium 100 Mg Capsule) 100 mg PO DAILY PRN PRN Reason: Constipation Gabapentin (Gabapentin 300 Mg Capsule) 300 mg PO TID [facility] Last Admin: 06/20/21 08:55 Dose: 300 mg Documented by: MARIETTA Glucose (Glucose Gel 15 Gm Gel..Gram.) 15 gm PO Q15M PRN; Protocol PRN Reason: per Hypoglycemia Standing Ord. Meropenem 1 gm/ Sodium (Chloride) 100 mls @ 200 mls/hr IV Q8H [facility] Last Infusion: 06/20/21 08:56 Dose: 0 mls/hr Documented by: GRACIELA Insulin Glargine (Insulin Glargine,Hum.Rec.Anlog 100 Unit/Ml 10 Ml Vial) 55 unit SUBCUT BEDTIME [facility] Last Admin: 06/19/21 21:04 Dose: 55 unit Documented by: TYRA Insulin Human Lispro (Insulin Lispro 100 Unit/Ml 3 Ml Vial) 0 unit SUBCUT QIDACHS [facility]; Protocol Last Admin: 06/20/21 07:58 Dose: 2 unit Documented by: MARIETTA Comments: for blood sugar 168 Linezolid (Linezolid 600 Mg Tablet) 600 mg PO Q12H [facility] Last Admin: 06/20/21 03:43 Dose: 600 mg Documented by: TYRA Metoprolol Tartrate (Metoprolol Tartrate 50 Mg Tablet) 50 mg PO BID [facility]; Protocol Last Admin: 06/20/21 08:55 Dose: 50 mg Documented by: MARIETTA Comments: 150/67, 78 Ondansetron HCl (Ondansetron Hcl 4 Mg/2 Ml Vial) 4 mg IVPUSH Q8H PRN PRN Reason: Nausea and Vomiting Pharmacy Consult (Consult Rx Vancomycin Dosing) 1 each MISCELLANE DAILY PRN PRN Reason: Consult order Sodium Chloride (0.9 % Sodium Chloride Flush 3 Ml Syringe) 3 ml IVFLUSH QSHIFT [facility] Last Admin: 06/20/21 08:19 Dose: 3 ml Documented by: DABCarmen Sodium Chloride (0.9 % Sodium Chloride Flush 10 Ml Syringe) 5 ml IVFLUSH TID [facility] Last Admin: 06/20/21 08:20 Dose: 5 ml Documented by: GRACIELA Tramadol HCl (Tramadol Hcl 50 Mg Tablet) 25 mg PO Q6H PRN PRN Reason: Pain, Mild (Pain Scale 1-3) Last Admin: 06/20/21 03:43 Dose: 25 mg Documented by: JANAEQC Labs CBC & Chem 7: 06/17/21 07:19 06/20/21 05:43 Labs: Laboratory Results - last 24 hr 06/19/21 06/19/21 06/19/21 12:42 13:13 16:03 Estim Creat Clear Calc Estimated GFR POC Glucose 154 H 203 H Total Creatine Kinase 35 06/19/21 06/20/21 06/20/21 20:21 05:43 07:40 Estim Creat Clear Calc 84.2 Estimated GFR > 60 POC Glucose 236 H 168 H Total Creatine Kinase Assessment and Plan (1) Diabetic infection of right foot: Status: Acute Plan 51 y/of pt with hx of DM? as well as PAD presents to the hospital? with complaints of right foot wound diabetic foot infection, hx of PAD-? ID appreciated plan for 6 weeks IV ertapenem, po zyvox day end july 27 diabetes uncontrolled: basal bolus insulin hypertension ?continue amlodipine, metoprolol adjusted to 50 mg po bid. hyperlipidemia continue statin. PAD Continue asa, statin obesity Encouraged to lose weight. ?DVT prophylaxis:? Lovenox Quality Stroke Does the patient have a stroke diagnosis?: No VTE Prior VTE?: No VTE Risk Level:: Medical - moderate - high VTE Device Contraindication: N/A - Device Ordered VTE Drug Contraindication: Treatment Not Indicated
[2021-06-20 12:00] VITALS: BP 137/67; PULSE 71; RESP 18; TEMP 36.9; O2SAT 95
[2021-06-20 12:00] LABS: Glucose, Whole Blood 150 mg/dL (60-115)
--- NOTE | 2021-06-20 15:07 | MHC.CM.PN ---
[facility] REFERRALS UPDATED. OF THIS NOTE, NO ACCEPTING AGENCY
[2021-06-20 15:18] VITALS: BP 136/72; PULSE 76; RESP 18; TEMP 36.1; O2SAT 99
[2021-06-20 15:57] LABS: Glucose, Whole Blood 203 mg/dL (60-115)
[2021-06-20 19:33] VITALS: BP 150/77; PULSE 85; RESP 18; TEMP 36.7; O2SAT 96
[2021-06-20 19:47] LABS: Glucose, Whole Blood 271 mg/dL (60-115)
[2021-06-20] MEDS: Insulin Glargine,Hum.rec.anlog 100 UNIT/ML 10 ML VIAL 55 UNIT SUBCUT (20:46)
[2021-06-20] MEDS: Atorvastatin Calcium 80 MG TABLET PO (20:46)
[2021-06-20 23:47] VITALS: BP 136/73; PULSE 70; RESP 16; TEMP 36.3; O2SAT 93
[2021-06-21 04:00] VITALS: BP 158/83; PULSE 69; RESP 16; TEMP 36.6; O2SAT 95
[2021-06-21] MEDS: Linezolid 600 MG TABLET PO ×2 (05:33→16:22)
[2021-06-21 06:07] LABS: Creatinine Clr Calc Pharmacy 86.2; Estimated Glomerular Filt Rate > 60
[2021-06-21 07:06] VITALS: BP 145/65; PULSE 75; RESP 18; TEMP 36.2; O2SAT 97
[2021-06-21 07:24] LABS: Glucose, Whole Blood 174 mg/dL (60-115)
[2021-06-21] MEDS: amLODIPine Besylate 10 MG TABLET PO (07:41)
[2021-06-21] MEDS: Cyanocobalamin (Vitamin B-12) 1,000 MCG TABLET 1000 MCG PO (07:41)
[2021-06-21] MEDS: Gabapentin 300 MG CAPSULE PO ×3 (07:41→19:59)
[2021-06-21] MEDS: Metoprolol Tartrate 50 MG TABLET PO ×2 (07:41→19:59)
[2021-06-21] MEDS: Insulin Lispro 100 UNIT/ML 3 ML VIAL SUBCUT ×4 (07:41→19:58)
[2021-06-21] MEDS: 0.9 % Sodium Chloride Flush 3 ML SYRINGE IVFLUSH (07:43)
[2021-06-21] MEDS: 0.9 % Sodium Chloride Flush 10 ML SYRINGE 5 ML IVFLUSH ×3 (07:43→20:26)
--- NOTE | 2021-06-21 10:06 | P.PNIM_ITS ---
Subjective Subjective Date of Service: 06/21/21 Interval History: cc: DFU interval history: no complaints Cardiovascular Cardiovascular: Reports no additional cardiovascular complaints Respiratory Respiratory: Reports no additional respiratory complaints Physical Exam Vital Signs: Vital Signs: Last Vital Signs Temp 97.1 F 06/21/21 07:06 Pulse 75 06/21/21 07:06 Resp 18 06/21/21 07:06 BP 145/65 H 06/21/21 07:06 Pulse Ox 97 06/21/21 07:06 BMI result Body Mass Index 36.7 Const General:?cooperative, healthy appearing and no acute distress Orientation/consciousness:?oriented to person, oriented to place and oriented to time HENMT Head:?Yes normal to inspection Neck Carotids:?no bruits Chest Chest palpation & inspection:?normal inspection of the chest Resp Effort & Inspection:?normal respiratory effort and able to speak in complete sentences Auscultation:?clear to auscultation bilaterally Cardio Rate:?regular rate Heart sounds:?S1 normal heart sound present and S2 normal heart sound present GI Inspection:?Yes normal to inspection Skin General skin exam:?no rashes or lesions noted Wounds:?wounds noted (Right 3rd 4th and 5th digit ulcers in webspace and dry eschar.) Neuro General:?oriented to person, oriented to place, oriented to time and CN's II-XI intact bilaterally Extrem General:?Yes normal to inspection, Yes full ROM and Yes no clubbing, cyanosis or edema Psych Appearance:?grossly normal and well kempt Speech and movement:?Normal speech and movement present Affect:?normal affect Objective Data Active Medications Acetaminophen (Acetaminophen 325 Mg Tablet) 650 mg PO Q6H PRN PRN Reason: Pain, Mild (Pain Scale 1-3) Last Admin: 06/18/21 07:48 Dose: 650 mg Documented by: IVANA Amlodipine Besylate (Amlodipine Besylate 10 Mg Tablet) 10 mg PO DAILY [facility]; Protocol Last Admin: 06/21/21 07:41 Dose: 10 mg Documented by: GRACIELA Atorvastatin Calcium (Atorvastatin Calcium 80 Mg Tablet) 80 mg PO BEDTIME [facility] Last Admin: 06/20/21 20:46 Dose: 80 mg Documented by: SANDOVAL Cyanocobalamin (Cyanocobalamin (Vitamin B-12) 1,000 Mcg Tablet) 1,000 mcg PO DAILY [facility] Last Admin: 06/21/21 07:41 Dose: 1,000 mcg Documented by: GRACIELA Dextrose (Dextrose 50 % 25 Gm/50 Ml Syringe) 25 gm IVPUSH Q15M PRN; Protocol PRN Reason: per Hypoglycemia Standing Ord. Docusate Sodium (Docusate Sodium 100 Mg Capsule) 100 mg PO DAILY PRN PRN Reason: Constipation Gabapentin (Gabapentin 300 Mg Capsule) 300 mg PO TID [facility] Last Admin: 06/21/21 07:41 Dose: 300 mg Documented by: GRACIELA Glucose (Glucose Gel 15 Gm Gel..Gram.) 15 gm PO Q15M PRN; Protocol PRN Reason: per Hypoglycemia Standing Ord. Meropenem 1 gm/ Sodium (Chloride) 100 mls @ 200 mls/hr IV Q8H [facility] Last Infusion: 06/21/21 09:58 Dose: 0 mls/hr Documented by: GRACIELA Insulin Glargine (Insulin Glargine,Hum.Rec.Anlog 100 Unit/Ml 10 Ml Vial) 55 unit SUBCUT BEDTIME [facility] Last Admin: 06/20/21 20:46 Dose: 55 unit Documented by: SANDOVAL Insulin Human Lispro (Insulin Lispro 100 Unit/Ml 3 Ml Vial) 0 unit SUBCUT QIDACHS [facility]; Protocol Last Admin: 06/21/21 07:41 Dose: 2 unit Documented by: GRACIELA Linezolid (Linezolid 600 Mg Tablet) 600 mg PO Q12H [facility] Last Admin: 06/21/21 05:33 Dose: 600 mg Documented by: JAX Metoprolol Tartrate (Metoprolol Tartrate 50 Mg Tablet) 50 mg PO BID [facility]; Protocol Last Admin: 06/21/21 07:41 Dose: 50 mg Documented by: GRACIELA Ondansetron HCl (Ondansetron Hcl 4 Mg/2 Ml Vial) 4 mg IVPUSH Q8H PRN PRN Reason: Nausea and Vomiting Pharmacy Consult (Consult Rx Vancomycin Dosing) 1 each MISCELLANE DAILY PRN PRN Reason: Consult order Sodium Chloride (0.9 % Sodium Chloride Flush 3 Ml Syringe) 3 ml IVFLUSH QSHIFT [facility] Last Admin: 06/21/21 07:43 Dose: 3 ml Documented by: GRACIELA Sodium Chloride (0.9 % Sodium Chloride Flush 10 Ml Syringe) 5 ml IVFLUSH TID ANG[facility] Last Admin: 06/21/21 07:43 Dose: 5 ml Documented by: DABA Tramadol HCl (Tramadol Hcl 50 Mg Tablet) 25 mg PO Q6H PRN PRN Reason: Pain, Mild (Pain Scale 1-3) Last Admin: 06/20/21 20:51 Dose: 25 mg Documented by: LAKEISHAASY Labs CBC & Chem 7: 06/17/21 07:19 06/21/21 05:33 Labs: Laboratory Results - last 24 hr 06/20/21 06/20/21 06/20/21 11:54 15:53 19:42 Estim Creat Clear Calc Estimated GFR POC Glucose 150 H 203 H 271 H 06/21/21 06/21/21 05:33 07:05 Estim Creat Clear Calc 86.2 Estimated GFR > 60 POC Glucose 174 H Assessment and Plan (1) Diabetic infection of right foot: Status: Acute Plan 51 y/of pt with hx of DM? as well as PAD presents to the hospital? with complaints of right foot wound diabetic foot infection, hx of PAD-? ID appreciated plan for 6 weeks IV ertapenem, po zyvox day end july 27 diabetes uncontrolled: basal bolus insulin hypertension ?continue amlodipine, metoprolol adjusted to 50 mg po bid. hyperlipidemia continue statin. PAD Continue asa, statin obesity Encouraged to lose weight. ?DVT prophylaxis:? Lovenox reason for continued hospitalization: medically stable but requires VNA for home abx, awaiting vna set up Quality Stroke Does the patient have a stroke diagnosis?: No VTE Prior VTE?: No VTE Risk Level:: Medical - moderate - high VTE Device Contraindication: N/A - Device Ordered VTE Drug Contraindication: Treatment Not Indicated
[2021-06-21 11:25] VITALS: BP 154/73; PULSE 71; RESP 18; TEMP 36.3; O2SAT 98
[2021-06-21 11:44] LABS: Glucose, Whole Blood 242 mg/dL (60-115)
--- NOTE | 2021-06-21 12:15 | P.DS_ITS ---
DS: Providers Provider Date of Service: 06/22/21 Date of admission: 06/16/21 23:28 Primary care physician: Farhana Ellison MD Consults: 06/17/21 00:12 Consult to General Surgery Routine Consulting Provider: Angelia Pineda Reason for consultation: diabetic foot wound Has provider been notified: No 06/17/21 08:16 Consult to Infectious Diseases Routine Consulting Provider: Reanna Graves Reason for consultation: sm foot infection right side Has provider been notified: No 06/17/21 11:23 Consult to Vascular Surgery Routine Consulting Provider: John Peguero Reason for consultation: right foot ulcer , PAD Has provider been notified: No DS: Diagnosis Discharge Diagnosis (1) Diabetic infection of right foot: Status: Acute DS: Summary Hospital Course Hospital Course: from initial hpi: ?this is a 51-year-old female with past medical history of diabetes complicated by neuropathy as well as status post amputation of left metatarsals,? P AD, hyperlipidemia, history of heart failure with preserved ejection fraction, hypertension, who presents to the hospital with complaints of left foot infection.? Patient reports that she has neuropathy and therefore does not experience pain, she was working in her pantry when her neighbor noticed there was blood on her sock, when she moved her sock she noticed significant skin changes of her for left toes, some bloody drainage.? She denies having any fever but has chills, denies experiencing any pain, no chest pain, no shortness of breath, no abdominal pain nausea or vomiting, no diarrhea constipation, no urinary symptoms and no lower extremity edema. On arrival to the patient's vitals? or unremarkable except for slightly elevated blood pressure Labs are significant for? WBC count of 15.5, ESR 75, BUN of 24, creatinine of 1.11, CRP of 6.93, Foot x-ray negative ?patient started on IV antibiotics and will be admitted for further management with hospital course: Patient was admitted for cellulitis associated with right posttraumatic diabetic foot infection complicated by peripheral arterial disease. She was treated with broad-spectrum IV antibiotics and was seen by infectious disease who recommended 6 weeks of IV ertapenem and PO Zyvox to be completed 07/27/2021. Patient MRI which did not show osteomyelitis. She was seen by vascular surgery was deemed not to have a significant active arterial disease who recommended Continuing aspirin statin and outpatient follow-up for routine surveillance. Patient has diabetes with hyperglycemia, was treated with basal bolus insulin. For hypertension she was treated with amlodipine. For her obesity weight loss was recommended. patient is now medically stable will be discharged home with PICC line to complete her antibiotics. She will follow-up with Infectious Disease Time Spent with Patient Time attestation: Total time spent providing and/or coordinating discharge services: Discharge coordination time: Greater than 30 minutes Quality: Stroke Does the patient have a stroke diagnosis?: No Physical Exam Vital Signs: Vital Signs: Last Vital Signs Temp 97.4 F 06/21/21 11:25 Pulse 71 06/21/21 11:25 Resp 18 06/21/21 11:25 BP 154/73 H 06/21/21 11:25 Pulse Ox 98 06/21/21 11:25 BMI result Body Mass Index 36.7 Const General:?cooperative, healthy appearing and no acute distress Orientation/consciousness:?oriented to person, oriented to place and oriented to time HENMT Head:?Yes normal to inspection Neck Carotids:?no bruits Chest Chest palpation & inspection:?normal inspection of the chest Resp Effort & Inspection:?normal respiratory effort and able to speak in complete sentences Auscultation:?clear to auscultation bilaterally Cardio Rate:?regular rate Heart sounds:?S1 normal heart sound present and S2 normal heart sound present GI Inspection:?Yes normal to inspection Skin General skin exam:?no rashes or lesions noted Wounds:?wounds noted (Right 3rd 4th and 5th digit ulcers in webspace and dry eschar.) Neuro General:?oriented to person, oriented to place, oriented to time and CN's II-XI intact bilaterally Extrem General:?Yes normal to inspection, Yes full ROM and Yes no clubbing, cyanosis or edema, left tma Psych Appearance:?grossly normal and well kempt Speech and movement:?Normal speech and movement present Affect:?normal affect DS: Data Data Completed and Pending Completed studies during hospitalization [Text1]: Procedures Fluoroscopy of Aorta and Bilateral Lower Extremity Arteries (02/11/21) Labs on day of discharge: Laboratory Results - last 24 hr 06/20/21 06/20/21 06/21/21 15:53 19:42 05:33 Creatinine 0.82 Estim Creat Clear Calc 86.2 Estimated GFR > 60 POC Glucose 203 H 271 H 06/21/21 06/21/21 07:05 11:28 Creatinine Estim Creat Clear Calc Estimated GFR POC Glucose 174 H 242 H Preliminary micro results at discharge 06/16/21 22:36 Blood Culture - Preliminary Blood - Venous No growth after 48 hours. 06/16/21 22:36 Blood Culture - Preliminary Blood - Venous No growth after 48 hours. Discharge Plan Discharge Patient Disposition: Home Health Service Discharge Diagnosis: foot cellulitis Referrals: [facility] [Other] - 1 Day ([facility] NURSE WILL PROVIDE CARE/DRESSINGS SPECIFIC FOR PICC LINE ONLY. AN [facility] NURSE WILL CALL SHENA'S PHONE TO DO A VIRTUAL VISIT FOR YOUR FIRST AT HOME VISIT FRIDAY 06/23. ) Farhana Ellison MD [Primary Care Provider] - 1 Week John Peguero MD [Physician] - 1 Week (follow up outpatiently) Angelia Pineda MD [Physician] - 1 Week (follow up in 1week.) Discharge Medications: New docusate sodium 100 mg Capsule 100 mg PO DAILY PRN (Reason: Constipation) Qty: 30 0RF linezolid 600 mg Tablet 600 mg PO Q12H Qty: 82 0RF Continued mecobalamin (vitamin B12) 1,000 mcg tablet,disintegrating 1,000 mcg sublingual DAILY Qty: 30 2RF Rx Instructions: place tablet under tongue and allow to dissolve for at least30 secs before swallowing Lantus U-100 Insulin 50 units BEDTIME 0RF insulin aspart U-100 [Novolog U-100 Insulin aspart] 100 unit/mL solution 20 unit subcut TIDAC 0RF atorvastatin 80 mg tablet 1 tab PO BEDTIME 0RF gabapentin 300 mg capsule 1 cap PO TID 0RF amlodipine 10 mg tablet 1 tab PO DAILY 0RF aspirin 81 mg Tablet,Chewable 81 mg PO DAILY 0RF Discharge Orders: Discharge Order (Routine); Ordered 06/22/21 Ordered By: Ritchie Ho Diet: advance to usual diet Activity on Discharge: As tolerated Stand Alone Forms: Patient Portal Discharge page Other Ambulatory Orders: Basic Metabolic Panel (Routine) Timeframe: 1 Week Facility: [facility] - Location: Laboratory Ordered By: Jesusita Gonzalez Complete Blood Count no Diff (Routine) Timeframe: 1 Week Facility: [facility] - Location: Laboratory Ordered By: Jesusita Gonzalez Creatine Kinase Total (Routine) Timeframe: 1 Week Facility: [facility] - Location: Laboratory Ordered By: Jesusita Gonzalez C Reactive Protein (Routine) Timeframe: 1 Week Facility: [facility] - Location: Laboratory Ordered By: Jesusita Gonzalez Erythrocyte Sedimentation Rate (Routine) Timeframe: 1 Week Facility: [facility] - Location: Laboratory Ordered By: Jesusita Gonzalez Liver Panel (Routine) Timeframe: 1 Week Facility: [facility] - Location: Laboratory Ordered By: Jesusita Gonzalez Activity Restrictions/Additional Instructions: Apply Xeroform to right 3rd, 4th, and 5th toe open blisters, cover with gauze and roll gauze. Left amp site diabetic ulcer- Woundres gel covered with gauze and roll gauze. Follow up with wound clinic. Care Plan Goals: Patient came to the hospital because of right foot cellulitis-started on IV antibiotics seems to be improving seen by ID and vascular and Foot MRIs was done: Seems to be cellulitis. Seen by infectious disease and vascular: Patient was switched to iv antibiotic going home with that. In addition patient is to follow up outpatient with wound care patient is aware of that. please check cbc , BMP, CPK, liver panel, ESR, CRP we have weekly while on antibiotics. Health Concerns: As above. Plan of Treatment: As above. Assessment: as above. Discharge Date/Time: 06/22/21 15:16
--- NOTE | 2021-06-21 12:30 | MHC.CM.PN ---
Addendum entered by Jelena Jones RN 06/21/21 12:54: [facility] LIAISON DARLENE HERE IN HOSPITAL FOR TEACH VIA DEFECT CUTTER, CM STILL AWAITING FINAL CONFIRMATION [facility] THEY CAN DO START OF CARE TOMORROW 06/22/21. Original Note: PT MEDICALLY CLEARED FOR D/C, CM HAS BEEN UNABLE TO OBTAIN VNA, PT'S DTR WILL ASSIST W/DRESSING CHANGES TO FOOT, PT WILL RESUME [facility] AND [facility] WILL PROVIDE A RN FOR PICC LINE CARE/DRESSING CHANGES, FAMILY FOR TRANSPORT.
--- NOTE | 2021-06-21 15:17 | P.F2F_ITS ---
Service Date Service Date: 06/22/21 Encounter Date of encounter: 06/22/21 Reasons for Services Signs and symptoms assessed: difficulty ambulating Reason for mcfp: wound care (xeroform and gauze roll to wound), medication management, medication treatment and teach disease management Homebound: Leaving the home is medically contraindicated at this time without the asist of a device and/or another person due th the listed conditions above and below. Reason homebound: unsteady gait / fall risk Certification: Based on the above findings, I certify that this patient is confined to the home and needs intermittent mcfp care, physical therapy and/or speech therapy, or continues to need occupational therapy. The patient is under my care, and I have initiated the establishment of the plan of care. The patient will be followed by a physician who will periodically review the plan of care.
[2021-06-21 16:00] VITALS: BP 147/76; PULSE 86; RESP 17; TEMP 36.6; O2SAT 100
[2021-06-21 16:17] LABS: Glucose, Whole Blood 283 mg/dL (60-115)
--- NOTE | 2021-06-21 16:22 | MHC.CM.PN ---
DISCHARGE CANCELLED AFTER [facility] VNA DROPPED PT AND [facility] DIDN'T FEEL COMFORTABLE PROVIDING A NURSE W/WOUND CARE NEEDS. CM DID SPEAK W/PT'S QUARRY WORKER DOMINIK AT BEDSIDE AND DOMINIK REPORTS SHE IS WILLING TO LEARN DRESSING CHANGE TOMORROW, NSG AWARE AND WILL PASS ON TO WAIT FOR DOMINIK TO GET HERE FOR DRESSING CHANGESO THEY CAN DO TEACHING W/HER AND PT, LILLIE RECEIVED A CALL FROM PT'S DTR JILLIAN [phone] WHO REPORTED WHEN PT HAD HER AMPUTATION PT WAS ABLE TO DO DRESSING ON HER OWN, DTR ALSO REPORTED WHEN PT RETURN FROM [place] IN [place] HER VNA STOPPED COMING, PER DTR PT GOES TO [facility] FRIDAY. CM WILL FOLLOW IN AM FOR D/C
[2021-06-21 19:40] VITALS: BP 178/82; PULSE 84; RESP 18; TEMP 36.6; O2SAT 99
[2021-06-21 19:48] LABS: Glucose, Whole Blood 309 mg/dL (60-115)
[2021-06-21] MEDS: Insulin Glargine,Hum.rec.anlog 100 UNIT/ML 10 ML VIAL 55 UNIT SUBCUT (19:58)
[2021-06-21] MEDS: Atorvastatin Calcium 80 MG TABLET PO (19:59)
[2021-06-21 23:45] VITALS: BP 158/82; PULSE 73; RESP 16; TEMP 36.6; O2SAT 93
[2021-06-22 04:00] VITALS: BP 146/79; PULSE 75; RESP 16; TEMP 36.5; O2SAT 94
[2021-06-22] MEDS: Linezolid 600 MG TABLET PO (04:11)
[2021-06-22 06:57] LABS: Creatinine Clr Calc Pharmacy 83.1; Estimated Glomerular Filt Rate > 60
[2021-06-22 07:08] VITALS: BP 164/77; PULSE 73; RESP 18; TEMP 36.5; O2SAT 98
[2021-06-22 07:19] LABS: Glucose, Whole Blood 134 mg/dL (60-115)
--- NOTE | 2021-06-22 08:39 | MHC.CM.PN ---
EMR REVIEWED, PER PT AND DTR PT HAD DAILY VNA W/PREVIOUS IV ABX AT HOME, CM HAS BEEN UNABLE TO OBTAIN ANY VNA SERVICES FOR PT D/T SPECIFIC MH INSURANCE PLAN, PER FS PT DOES NOT QUALIFY FOR UPGRADE IN PLAN AT THIS TIME D/T INCOME, DTR DOES PLAN ON FILLING OUT REQUIRED PAPERWORK FOR PT AND BRING IT TO FS ON FRIDAY HOWEVER THAT PROCEESS TAKES 30-60 DAYS TO BE APPROVED. CM HAS SENT OUT REFERRALS FOR STR TO DETERMINE IF HER PLAN WILL COVER SNF PLACEMENT.
--- NOTE | 2021-06-22 09:06 | HO.PM.IMPN ---
Subjective Subjective Date of Service: 06/22/21 Interval History: cc: dfu interval history: no complaints Cardiovascular Cardiovascular: Reports no additional cardiovascular complaints Gastrointestinal Gastrointestinal: Reports no additional gastrointestinal complaints Physical Exam Vital Signs: Vital Signs: Last Vital Signs Temp 97.7 F 06/22/21 07:08 Pulse 73 06/22/21 07:08 Resp 18 06/22/21 07:08 BP 164/77 H 06/22/21 07:08 Pulse Ox 98 06/22/21 07:08 BMI result Body Mass Index 36.7 Const General:?cooperative, healthy appearing and no acute distress Orientation/consciousness:?oriented to person, oriented to place and oriented to time HENMT Head:?Yes normal to inspection Neck Carotids:?no bruits Chest Chest palpation & inspection:?normal inspection of the chest Resp Effort & Inspection:?normal respiratory effort and able to speak in complete sentences Auscultation:?clear to auscultation bilaterally Cardio Rate:?regular rate Heart sounds:?S1 normal heart sound present and S2 normal heart sound present GI Inspection:?Yes normal to inspection Skin General skin exam:?no rashes or lesions noted Wounds:?wounds noted (Right 3rd 4th and 5th digit ulcers in webspace and dry eschar.) Neuro General:?oriented to person, oriented to place, oriented to time and CN's II-XI intact bilaterally Extrem General:?Yes normal to inspection, Yes full ROM and Yes no clubbing, cyanosis or edema, left tma Psych Appearance:?grossly normal and well kempt Speech and movement:?Normal speech and movement present Affect:?normal affect Objective Data Active Medications Acetaminophen (Acetaminophen 325 Mg Tablet) 650 mg PO Q6H PRN PRN Reason: Pain, Mild (Pain Scale 1-3) Last Admin: 06/18/21 07:48 Dose: 650 mg Documented by: IVANA Amlodipine Besylate (Amlodipine Besylate 10 Mg Tablet) 10 mg PO DAILY [facility]; Protocol Last Admin: 06/21/21 07:41 Dose: 10 mg Documented by: GRACIELA Atorvastatin Calcium (Atorvastatin Calcium 80 Mg Tablet) 80 mg PO BEDTIME [facility] Last Admin: 06/21/21 19:59 Dose: 80 mg Documented by: TYRA Cyanocobalamin (Cyanocobalamin (Vitamin B-12) 1,000 Mcg Tablet) 1,000 mcg PO DAILY [facility] Last Admin: 06/21/21 07:41 Dose: 1,000 mcg Documented by: GRACIELA Dextrose (Dextrose 50 % 25 Gm/50 Ml Syringe) 25 gm IVPUSH Q15M PRN; Protocol PRN Reason: per Hypoglycemia Standing Ord. Docusate Sodium (Docusate Sodium 100 Mg Capsule) 100 mg PO DAILY PRN PRN Reason: Constipation Gabapentin (Gabapentin 300 Mg Capsule) 300 mg PO TID [facility] Last Admin: 06/21/21 19:59 Dose: 300 mg Documented by: TYRA Glucose (Glucose Gel 15 Gm Gel..Gram.) 15 gm PO Q15M PRN; Protocol PRN Reason: per Hypoglycemia Standing Ord. Meropenem 1 gm/ Sodium (Chloride) 100 mls @ 200 mls/hr IV Q8H [facility] Last Infusion: 06/22/21 00:40 Dose: 0 mls/hr Documented by: TYRA Insulin Glargine (Insulin Glargine,Hum.Rec.Anlog 100 Unit/Ml 10 Ml Vial) 55 unit SUBCUT BEDTIME [facility] Last Admin: 06/21/21 19:58 Dose: 55 unit Documented by: TYRA Insulin Human Lispro (Insulin Lispro 100 Unit/Ml 3 Ml Vial) 0 unit SUBCUT QIDACHS [facility]; Protocol Last Admin: 06/22/21 07:22 Dose: Not Given Documented by: TYRA Non-Admin Reason: No Insulin Coverage Linezolid (Linezolid 600 Mg Tablet) 600 mg PO Q12H [facility] Last Admin: 06/22/21 04:11 Dose: 600 mg Documented by: TYRA Metoprolol Tartrate (Metoprolol Tartrate 50 Mg Tablet) 50 mg PO BID [facility]; Protocol Last Admin: 06/21/21 19:59 Dose: 50 mg Documented by: TYRA Ondansetron HCl (Ondansetron Hcl 4 Mg/2 Ml Vial) 4 mg IVPUSH Q8H PRN PRN Reason: Nausea and Vomiting Pharmacy Consult (Consult Rx Vancomycin Dosing) 1 each MISCELLANE DAILY PRN PRN Reason: Consult order Sodium Chloride (0.9 % Sodium Chloride Flush 3 Ml Syringe) 3 ml IVFLUSH QSHIFT [facility] Last Admin: 06/22/21 06:59 Dose: Not Given Documented by: TYRA Non-Admin Reason: picc line Sodium Chloride (0.9 % Sodium Chloride Flush 10 Ml Syringe) 5 ml IVFLUSH TID ANGÉLICA Last Admin: 06/21/21 20:26 Dose: 5 ml Documented by: TYRA Tramadol HCl (Tramadol Hcl 50 Mg Tablet) 25 mg PO Q6H PRN PRN Reason: Pain, Mild (Pain Scale 1-3) Last Admin: 06/20/21 20:51 Dose: 25 mg Documented by: SANDOVAL Labs CBC & Chem 7: 06/17/21 07:19 06/22/21 05:35 Labs: Laboratory Results - last 24 hr 06/21/21 06/21/21 06/21/21 11:28 15:33 19:43 Estim Creat Clear Calc Estimated GFR POC Glucose 242 H 283 H 309 H 06/22/21 06/22/21 05:35 07:12 Estim Creat Clear Calc 83.1 Estimated GFR > 60 POC Glucose 134 H Microbiology Microbiology Results: Microbiology 06/16/21 22:36 Blood Culture - Final Blood - Venous No growth after 5 days. 06/16/21 22:36 Blood Culture - Final Blood - Venous No growth after 5 days. Assessment and Plan (1) Diabetic infection of right foot: Status: Acute Plan 51 y/of pt with hx of DM? as well as PAD presents to the hospital? with complaints of right foot wound diabetic foot infection, hx of PAD-? ID appreciated plan for 6 weeks IV ertapenem, po zyvox day end july 27 diabetes uncontrolled: basal bolus insulin hypertension ?continue amlodipine, metoprolol hyperlipidemia continue statin. PAD Continue asa, statin obesity Encouraged to lose weight. ?DVT prophylaxis:? Lovenox reason for continued hospitalization: medically stable but requires VNA for wound care, awaiting vna set up Quality Stroke Does the patient have a stroke diagnosis?: No VTE Prior VTE?: No VTE Risk Level:: Medical - moderate - high VTE Device Contraindication: N/A - Device Ordered VTE Drug Contraindication: Treatment Not Indicated
[2021-06-22 11:24] VITALS: BP 154/71; PULSE 76; RESP 18; TEMP 36.2; O2SAT 98
--- NOTE | 2021-06-22 11:43 | MHC.CM.PN ---
Addendum entered by Jelena Jones RN 06/22/21 14:10: PER WOUND NURSE PT WAS ABLE TO DO DRESSING CHANGE ON HER OWN THIS MORNING AND RECEIVED ADDITIONAL TEACHING THIS AFTERNOON. PT WILL BE SENT HOME W/WOUND CARE SUPPLIES AND RESUME [facility]. Original Note: PT WILL D/C HOME W/RESUMP OF PRIVATE DUTY FABRIC WORKER LEADER, WEEKLY [facility] VISITS AND [facility] FOR IV ABX DELIVERY BY END OF DAY AND WILL PROVIDE WEEKLY RN TO START MONDAY 06/26 AND A VIRTUAL VISIT FOR FIRST DOSE TOMORROW 06/23, PRIVATE DUTY FABRIC WORKER LEADER DOMINIK WILL COME IN TO LEARN DRESSING CHANGE PRIOR TO TTRANSPORTING PT HOME. DTR SHENA AND ELIZABETH WILL BOTH BE PRESENT W/PT FOR VIRTUAL VISIT W/[facility] TOMORROW AFTERNOON, [facility] RN WILL CALL SHENA'S CELL PHONE FOR VIRTUAL VISIT.
[2021-06-22 11:47] LABS: Glucose, Whole Blood 157 mg/dL (60-115)
[2021-06-22] MEDS: amLODIPine Besylate 10 MG TABLET PO (12:17)
[2021-06-22] MEDS: Metoprolol Tartrate 50 MG TABLET PO (12:17)
[2021-06-22] MEDS: 0.9 % Sodium Chloride Flush 10 ML SYRINGE 5 ML IVFLUSH (12:17)
[2021-06-22] MEDS: Gabapentin 300 MG CAPSULE PO (12:17)
[2021-06-22] MEDS: Cyanocobalamin (Vitamin B-12) 1,000 MCG TABLET 1000 MCG PO (12:18)
[2021-06-22] MEDS: Insulin Lispro 100 UNIT/ML 3 ML VIAL SUBCUT (12:19)
[2021-06-22] MEDS: Ertapenem Sodium 1 GM in 0.9 % Sodium Chloride 50 ML IV (12:21)
== END 2021-06-22 15:16 | disposition home health service (06) | DRG 420 ==
LOC: HO.ED 23:10 → HO.EDOVER 23:33 → HO.S3 06-17 18:32
PROVIDERS: Internal Medicine; Admitting Provider Internal Medicine; Emergency Provider Internal Medicine; PCP Internal Medicine; Visit Provider Internal Medicine
DX: E11.628 Type 2 diabetes mellitus with other skin complications (principal); E11.40 Type 2 diabetes mellitus with diabetic neuropathy, unspecified; L03.115 Cellulitis of right lower limb; E11.51 Type 2 diabetes mellitus with diabetic peripheral angiopathy without gangrene; Z20.822 Contact with and (suspected) exposure to COVID-19; E11.65 Type 2 diabetes mellitus with hyperglycemia; E78.5 Hyperlipidemia, unspecified; I10 Essential (primary) hypertension; E66.01 Morbid (severe) obesity due to excess calories; Z68.36 Body mass index [BMI] 36.0-36.9, adult; Z79.4 Long term (current) use of insulin; Z79.82 Long term (current) use of aspirin; Z79.899 Other long term (current) drug therapy
CPT/HCPCS: 36415; 36573; 73620; 73720; 80048; 80053; 80202; 82550; 82565; 82947; 83605; 85025; 85652; 86140; 87040; 87635; 93926; 96365; 99284; 99285; A9585; C1751; J1335; J2185; J2543; J3370

== ENCOUNTER → 2021-07-03 09:14 | Outpatient (BNVA) | payer OTHER, SELFPAY | PROVIDERS: PCP Internal Medicine; Visit Provider Surgery Vascular Surgery | DX: I73.9 Peripheral vascular disease, unspecified (principal); L97.919 Non-pressure chronic ulcer of unspecified part of right lower leg with unspecified severity | CPT/HCPCS: 99212 ==

== ENCOUNTER → 2021-07-16 09:28 | Outpatient (RCR) | payer OTHER, SELFPAY ==
[2020-08-30 12:27] LABS: Estimated Average Glucose 324 mg/dL; Hemoglobin A1c % 12.9 %
[2021-03-27 03:26] LABS: Estimated Average Glucose 226 mg/dL; Hemoglobin A1c % 9.5 %
== END | disposition home or self-care (01) ==
LOC: HO.WCC 01-26 14:49
PROVIDERS: PCP Internal Medicine; Visit Provider Surgery
DX: E11.621 Type 2 diabetes mellitus with foot ulcer (principal); L97.522 Non-pressure chronic ulcer of other part of left foot with fat layer exposed; T87.89 Other complications of amputation stump; I10 Essential (primary) hypertension; L84 Corns and callosities; Z79.4 Long term (current) use of insulin; Z89.422 Acquired absence of other left toe(s)
CPT/HCPCS: 11042; 11043; 11044; 11045; 11046; 36415; 83036; 87071; 87077; 87147; 87186; 87205; 88304; 88305; 88307; 88311; 99212; 99213

== ENCOUNTER → 2021-07-24 10:50 | Outpatient (BNVA) | payer OTHER, SELFPAY | PROVIDERS: PCP Internal Medicine; Visit Provider Surgery Vascular Surgery | DX: I73.9 Peripheral vascular disease, unspecified (principal); L97.519 Non-pressure chronic ulcer of other part of right foot with unspecified severity | CPT/HCPCS: 99212 ==

== ENCOUNTER 2021-08-02 14:21 | Outpatient (RCR) | payer OTHER, SELFPAY ==
--- NOTE | ~2021-08-02 | XR_ITS ---
EXAMINATION: XR CHEST CLINICAL INFORMATION: Preprocedure. COMPARISON: Chest 10/05/2020 TECHNIQUE: 2 views of the chest were obtained. FINDINGS: The lungs are expanded with patchy opacity right midlung. No acute pneumonic process seen. Heart size and progress clarities normal. There is mild spondylosis dorsal spine. XR/XR chest 2V IMPRESSION: Patchy opacity right midlung. No visible acute fracture or dislocation seen.
[2021-09-05 10:54] LABS: Estimated Average Glucose 263 mg/dL; Hemoglobin A1c % 10.8 %
[2021-09-05 11:02] LABS: C Reactive Protein 5.14 mg/dL (< or = 0.50)
[2021-09-05 11:11] LABS: Erythrocyte Sedimentation Rate 74 MM/HR (0-20)
[2021-10-18 12:10] LABS: MANUAL DIFF FLAG NO
[2021-10-18 12:37] LABS: Basophils Absolute Auto 0.1 X10*3/uL (0.0-0.2); Basophils Percent Auto 0.6 % (0-2); Eosinophils Absolute Auto 0.4 X10*3/uL (0.0-0.4); Eosinophils Percent Auto 2.5 % (0-4); Hematocrit 35.9 % (37.0-47.0); Hemoglobin 11.7 g/dl (12.0-16.0); Imm Gran Abs Auto 0.08 X10*3/uL (0.00-0.03); Imm Gran Pct Auto 0.6 % (0.0-0.4); Lymphocytes Absolute Auto 2.3 X10*3/uL (1.2-4.9); Lymphocytes Percent Auto 16.5 % (20-40); Mean Corpuscular HGB Conc 32.6 g/dl (31.0-35.0); Mean Corpuscular Hemoglobin 26.6 pg (27.0-33.0); Mean Corpuscular Volume 81.6 fL (80.0-98.0); Mean Platelet Volume 9.8 fL (9.4-12.3); Monocytes Absolute Auto 0.5 X10*3/uL (0.1-1.2); Monocytes Percent Auto 3.4 % (2-11); Neutrophils Absolute Auto 10.7 x10*3/uL (2.0-8.3); Neutrophils Percent Auto 76.4 % (45-73); Platelet Count 522 X10*3/uL (160-400); Red Cell Distribution Width 13.1 % (11.0-16.0)
[2021-10-18 13:38] LABS: Anion Gap 16 (12-20); Blood Urea Nitrogen 13 mg/dL (9-16); C Reactive Protein 13.06 mg/dL (< or = 0.50); Calcium 8.4 mg/dL (8.4-10.2); Carbon Dioxide 22 mmol/L (22-29); Chloride 101 mmol/L (96-108); Estimated Glomerular Filt Rate 59; Glucose Random 324 mg/dL (60-115); Potassium 4.2 mmol/L (3.3-5.1); Sodium 135 mmol/L (135-145)
[2021-10-18 13:42] LABS: Estimated Average Glucose 243 mg/dL; Hemoglobin A1c % 10.1 %
== END 2022-03-04 07:56 | disposition home or self-care (01) ==
LOC: HO.WCC 14:21
PROVIDERS: PCP Internal Medicine; Visit Provider Surgery
DX: E11.621 Type 2 diabetes mellitus with foot ulcer (principal); E11.51 Type 2 diabetes mellitus with diabetic peripheral angiopathy without gangrene; L97.515 Non-pressure chronic ulcer of other part of right foot with muscle involvement without evidence of necrosis; L97.512 Non-pressure chronic ulcer of other part of right foot with fat layer exposed; T87.81 Dehiscence of amputation stump; Z89.422 Acquired absence of other left toe(s); Z89.421 Acquired absence of other right toe(s); Z79.4 Long term (current) use of insulin; Z79.2 Long term (current) use of antibiotics; Z95.828 Presence of other vascular implants and grafts; Z79.899 Other long term (current) drug therapy
CPT/HCPCS: 11042; 11043; 11044; 11045; 11046; 36415; 71046; 80048; 83036; 84134; 85025; 85652; 86140; 99183; 99212; 99213

== ENCOUNTER → 2021-08-14 13:50 | Outpatient (BNVA) | payer OTHER, SELFPAY | PROVIDERS: PCP Internal Medicine; Visit Provider Surgery Vascular Surgery | DX: L97.519 Non-pressure chronic ulcer of other part of right foot with unspecified severity (principal); T87.81 Dehiscence of amputation stump; L84 Corns and callosities; I73.9 Peripheral vascular disease, unspecified | CPT/HCPCS: 99212 ==

== ENCOUNTER → 2021-09-11 13:13 | Outpatient (BNVA) | payer OTHER, SELFPAY | PROVIDERS: PCP Internal Medicine; Visit Provider Surgery Vascular Surgery | DX: I73.9 Peripheral vascular disease, unspecified (principal) | CPT/HCPCS: 99212 ==

== ENCOUNTER 2021-09-13 06:13 | Inpatient (IN) | payer OTHER, SELFPAY ==
--- NOTE | ~2021-09-13 | US_ITS ---
EXAMINATION: NONINVASIVE ASSESSMENT OF THE ARTERIES OF BOTH LOWER EXTREMITIES INCLUDING RIGHT LOWER EXTREMITY DUPLEX. CLINICAL INFORMATION: Nonhealing ulcer COMPARISON: Right lower extremity duplex on 06/17/2021 TECHNIQUE: duplex Doppler techniques with wave form analysis and measurement of velocities in the common femoral, profunda femoral, superficial femoral, popliteal, tibial and peroneal arteries. The study was performed only at rest. FINDINGS: Common femoral artery: 87 cm/s, Multiphasic Profunda femoris artery: 123 cm/s, Multiphasic Superficial femoral artery (proximal): 55 cm/s, Multiphasic Superficial femoral artery (mid): 98 cm/s, Multiphasic Superficial femoral artery (distal): 81 cm/s, Multiphasic Proximal Popliteal artery: 73 cm/s, Multiphasic Mid posterior tibial artery: 36 cm/s, Multiphasic Prominent right inguinal lymph node measuring 3.3 x 1.1 x 1.1 cm. US/US arterial duplex LE RT IMPRESSION: No hemodynamically significant stenosis in the right lower extremity.
--- NOTE | ~2021-09-13 | XR_ITS ---
EXAMINATION: XR TOES, RIGHT CLINICAL INFORMATION: Necrosis COMPARISON: 06/16/2021 TECHNIQUE: 3 views of the right toes were obtained. FINDINGS: There is ill-definition of the cortex and demineralization evident within the fifth distal phalangeal tuft and lateral metaphysis of the fifth distal phalanx as well as the lateral cortex of the fifth middle phalanx. Associated soft tissue swelling present. XR/XR toe RT min 2V IMPRESSION: Finding suggestive of osteomyelitis involving the middle and distal phalanges of the fifth toe.
[2021-09-13 06:38] VITALS: BP 137/69; PULSE 100; RESP 20; TEMP 36.8; O2SAT 97; BMI 36.6
--- NOTE | 2021-09-13 08:37 | ECG_ITS ---
Test Reason : admit Blood Pressure : / mmHG Vent. Rate : 075 BPM Atrial Rate : 075 BPM P-R Int : 174 ms QRS Dur : 090 ms QT Int : 414 ms P-R-T Axes : 039 001 082 degrees QTc Int : 462 ms Normal sinus rhythm Minimal voltage criteria for LVH, may be normal variant ( [place] product ) Nonspecific T wave abnormality Prolonged QT Abnormal ECG When compared with ECG of 05-OCT-2020 12:06, No significant change was found Referred By: Trish Sparks Electronically Signed By:Seferino Lala
--- NOTE | 2021-09-13 09:17 | ED.EXTPRO ---
HPI - Extremity Problem General Chief complaint: Extremity Problem Stated complaint: General Medical Time Seen by Provider: 09/13/21 08:37 Source: patient Mode of arrival: ambulatory Limitations: no limitations History of Present Illness HPI Narrative: 51 y/o female with history of DM, PAD, history of diabetic foot ulcer with osteomyelitis, s/p left TMA, hx VRE, HLD, depression who presents to the ER for evaluation of right 5th toe nontraumatic pain and worsening blackening discoloration for the last 5 days. [facility] and on her last visit there last week the black coloration was barely present and abx were not recommended at that time. She reports significant worsening pain in the toe and denies any history of injury or trauma. She denies fever or chills at home. She reports sugars have been 200 range at home. She follows with Dr. Peguero who performed her left TMA a couple of years ago and she has an U/S of her LE at the end of September. She reports the pain was too bad so she came to the ER today. MD Complaint: joint pain Onset (ago): day(s) Pain Consistency: constant Location: right and lower extremity Severity scale (1-10): 9 Quality: stabbing Radiation: proximal Relieving factors: nothing Exacerbating factors: weight bearing, walking and palpation Associated symptoms: denies other symptoms Context: history of peripheral vascular disease Related Data Home Medications Medication Instructions Recorded Confirmed amlodipine 10 mg tablet 1 tab PO DAILY 03/19/20 09/13/21 gabapentin 300 mg capsule 1 cap PO TID 03/19/20 09/13/21 insulin aspart U-100 100 unit/mL 20 unit SUBCUT TIDAC 03/19/20 09/13/21 subcutaneous solution (Novolog U-100 Insulin aspart) aspirin 81 mg chewable tablet 81 mg PO DAILY 06/17/21 09/13/21 blood-glucose meter (FreeStyle #1 ea 07/03/21 [place]ite) insulin glargine 100 unit/mL 90 unit SUBCUT DAILY 09/13/21 09/13/21 subcutaneous solution (Lantus U-100 Insulin) Previous Rx's Medication Instructions Recorded mecobalamin (vitamin B12) 1,000 1,000 mcg SUBLINGUAL DAILY #30 tab 10/30/20 mcg disintegrating tablet,sublingual Allergies Allergy/AdvReac Type Severity Reaction Status Date / Time No Known Allergies Allergy Verified 09/13/21 06:43 [No Known Allergies*] Review of Systems Review of Systems: Constitutional: No Fever, No Chills ENT/Mouth: No sore throat, No Rhinorrhea, No Swallowing Difficulty Eyes: No Eye Pain, No Swelling, No Redness Cardiovascular: No Chest Pain, No SOB, No Orthopnea, No Edema Respiratory: No Cough, No Sputum, No Wheezing, No dyspnea Gastrointestinal: + Nausea, No Vomiting, No Diarrhea, No abdominal Pain Genitourinary: No Dysuria, No Urinary Frequency, No Hematuria Musculoskeletal:+ joint pain, No Myalgias Skin: + Skin Lesions, No rash Neuro: No Weakness, No Numbness, No Dizziness, No Headache Psych: No Anxiety/Panic, No Depression Heme/Lymph: No Bruising, No Lymphadenopathy Endocrine: No Polyuria, No Polydipsia PMFSH Past Medical History Medical History Abscess Amputated toe of left foot Amputation of left foot BMI 39.0-39.9,adult Chronic heart failure with preserved ejection fraction (HFpEF) Chronic osteomyelitis of foot Diabetes Diabetic foot infection Diabetic foot infection Essential hypertension High cholesterol Hyperlipidemia Hypertension Insulin dependent diabetes mellitus Neuropathy Obesity Osteomyelitis PAD (peripheral artery disease) Type 2 diabetes mellitus with unspecified complications Uncontrolled diabetes mellitus Vitamin B12 deficiency VRE (vancomycin resistant enterococcus) culture positive Surgical History H/O spinal fusion History of section History of tubal ligation Family History Family History Mother Diabetes Hypertension Disk prolapse Father Diabetes Hypertension Sister No problems noted. Brother No problems noted. Daughter No problems noted. Son No problems noted. Social History Social History Household Members: Spouse Household Members Other:: Housing: Apartment Do you presently have visiting nurse or other home services: Yes Alcohol intake: never Patient Tobacco Use Status: Never used Tobacco Advance Directives: Yes Advance Directives on File: Yes Advance Directives Date on File: 02/15/21 service: No Current occupational status: unemployed Physical Exam Vital Signs: Vital Signs: Last Vital Signs Temp 98.2 F 09/13/21 06:38 Pulse 100 09/13/21 06:38 Resp 20 09/13/21 06:38 BP 137/69 09/13/21 06:38 Pulse Ox 97 09/13/21 06:38 BMI result Body Mass Index 36.6 Appearance: Alert. Oriented X3. No acute distress. Eyes: Pupils equal, round and reactive to light. ENT: Pharynx normal. Neck: Normal inspection. Neck supple. CVS: Normal heart rate and rhythm. Pulses normal. Respiratory: No respiratory distress. Breath sounds normal. Abdomen: Soft and nontender. +BS x4 Skin: Skin warm and dry. Normal skin color. Normal skin turgor. No rashes. Extremities: left foot s/p TMA with chronic plantar wound, no drainage or tenderness. right foot with 5th digit black/brown discoloration, dry. warm with surrounding erythema extending to distal foot. foot is warm and well perfused with 2+ DP pulse. Neuro: Oriented X 3. No motor deficit. No sensory deficit. Course Course Course Narrative: 51-year-old female with history of diabetes, peripheral vascular disease, history of osteomyelitis status post left transmetatarsal amputation in the past who presents to the ER for evaluation of right 5th toe pain and discoloration for the last for 5 days. She denies any fever chills at home. Her vital signs are normal on arrival. Examination is concerning for gangrenous changes and osteomyelitis. X-ray and septic workup are pending. Reevaluation(s) Reevaluation #1: X-ray showing findings suggestive of osteomyelitis involving the middle and distal phalanges of the 5th toe. She has a white count of 16.4. Lactic acid is normal. She has been ordered for vanco and Zosyn, history of VRE noted sensitive to ampicillin in the left foot, also has a history of Pseudomas (elizabeth-sensitive). Glucose 335 with no anion gap. IV fluids and subcu insulin have been ordered. patient will require admission for management of osteomyelitis. Patient updated on plan of care. MDM - Extremity (Nontraumatic) Lab Data Result diagrams: 09/13/21 09:13 09/13/21 09:13 Labs: Lab Results 09/13/21 09/13/21 09/13/21 Range/Units 09:13 09:13 09:13 WBC 16.4 H (4.8-10.8) X10*3/uL RBC 4.47 (4.20-5.50) X10*6/uL Hgb 12.1 (12.0-16.0) g/dl Hct 36.5 L (37.0-47.0) % MCV 81.7 (80.0-98.0) fL MCH 27.1 (27.0-33.0) pg MCHC 33.2 (31.0-35.0) g/dl RDW 13.2 (11.0-16.0) % Plt Count 413 H (160-400) X10*3/uL MPV 10.8 (9.4-12.3) fL Immature Gran % (Auto) 0.4 (0.0-0.4) % Neut % (Auto) 66.4 (45-73) % Lymph % (Auto) 22.0 (20-40) % [place] % (Auto) 7.8 (2-11) % Eos % (Auto) 2.5 (0-4) % Baso % (Auto) 0.9 (0-2) % Lymph # (Auto) 3.6 (1.2-4.9) X10*3/uL [place] # (Auto) 1.3 H (0.1-1.2) X10*3/uL Eos # (Auto) 0.4 (0.0-0.4) X10*3/uL Baso # (Auto) 0.1 (0.0-0.2) X10*3/uL Abs Immat Gran (auto) 0.06 H (0.00-0.03) X10*3/uL Absolute Neuts (auto) 10.9 H (2.0-8.3) x10*3/uL Absolute Nucleated RBC 0.000 (0.0-0.012) X10*3/uL Nucleated RBC % (auto) 0.0 (0.0-0.2) /100WBC ESR (0-20) MM/HR Sodium 134 L (135-145) mmol/L Potassium 4.0 (3.3-5.1) mmol/L Chloride 100 (96-108) mmol/L Carbon Dioxide 22 (22-29) mmol/L Anion Gap 16 (12-20) BUN 15 (9-16) mg/dL Creatinine 1.26 (0.5-1.4) mg/dL Estim Creat Clear Calc 55.9 Estimated GFR 45 Random Glucose 335 H (60-115) mg/dL Lactic Acid 1.5 (0.5-2.0) mmol/L Calcium 9.0 (8.4-10.2) mg/dL Total Bilirubin 0.3 (0.0-1.0) mg/dL AST 17 D (5-31) U/L ALT 18 (0-31) U/L Alkaline Phosphatase 149 H (39-117) U/L C-Reactive Protein 9.87 H (< or = 0.50) mg/dL Total Protein 6.5 (6.5-8.0) g/dL Albumin 3.0 L (3.5-5.0) g/dL COVID-19 (CHATA) (Negative) COVID-19 Clin Com 09/13/21 09/13/21 Range/Units 09:13 09:13 WBC (4.8-10.8) X10*3/uL RBC (4.20-5.50) X10*6/uL Hgb (12.0-16.0) g/dl Hct (37.0-47.0) % MCV (80.0-98.0) fL MCH (27.0-33.0) pg MCHC (31.0-35.0) g/dl RDW (11.0-16.0) % Plt Count (160-400) X10*3/uL MPV (9.4-12.3) fL Immature Gran % (Auto) (0.0-0.4) % Neut % (Auto) (45-73) % Lymph % (Auto) (20-40) % [place] % (Auto) (2-11) % Eos % (Auto) (0-4) % Baso % (Auto) (0-2) % Lymph # (Auto) (1.2-4.9) X10*3/uL [place] # (Auto) (0.1-1.2) X10*3/uL Eos # (Auto) (0.0-0.4) X10*3/uL Baso # (Auto) (0.0-0.2) X10*3/uL Abs Immat Gran (auto) (0.00-0.03) X10*3/uL Absolute Neuts (auto) (2.0-8.3) x10*3/uL Absolute Nucleated RBC (0.0-0.012) X10*3/uL Nucleated RBC % (auto) (0.0-0.2) /100WBC ESR 85 H (0-20) MM/HR Sodium (135-145) mmol/L Potassium (3.3-5.1) mmol/L Chloride (96-108) mmol/L Carbon Dioxide (22-29) mmol/L Anion Gap (12-20) BUN (9-16) mg/dL Creatinine (0.5-1.4) mg/dL Estim Creat Clear Calc Estimated GFR Random Glucose (60-115) mg/dL Lactic Acid (0.5-2.0) mmol/L Calcium (8.4-10.2) mg/dL Total Bilirubin (0.0-1.0) mg/dL AST (5-31) U/L ALT (0-31) U/L Alkaline Phosphatase (39-117) U/L C-Reactive Protein (< or = 0.50) mg/dL Total Protein (6.5-8.0) g/dL Albumin (3.5-5.0) g/dL COVID-19 (CHATA) Negative (Negative) COVID-19 Clin Com See Note ECG Data Attestation EKG: I personally reviewed and interpreted this ECG as follows: ECG interpretation date: 09/13/21 ECG interpretation time: 11:47 Prior ECG tracings: available for review Interpretation: normal sinus rhythm, HR 75 bpm, [place] interval, no ST segment elevations or depressions Discharge Plan Discharge Clinical Impression: Osteomyelitis, Hyperglycemia Patient Disposition: Admitted As Inpatient
[2021-09-13 09:24] LABS: MANUAL DIFF FLAG NO
[2021-09-13 09:30] LABS: Basophils Absolute Auto 0.1 X10*3/uL (0.0-0.2); Basophils Percent Auto 0.9 % (0-2); Eosinophils Absolute Auto 0.4 X10*3/uL (0.0-0.4); Eosinophils Percent Auto 2.5 % (0-4); Hematocrit 36.5 % (37.0-47.0); Hemoglobin 12.1 g/dl (12.0-16.0); Imm Gran Abs Auto 0.06 X10*3/uL (0.00-0.03); Imm Gran Pct Auto 0.4 % (0.0-0.4); Lymphocytes Absolute Auto 3.6 X10*3/uL (1.2-4.9); Mean Corpuscular HGB Conc 33.2 g/dl (31.0-35.0); Mean Corpuscular Hemoglobin 27.1 pg (27.0-33.0); Mean Corpuscular Volume 81.7 fL (80.0-98.0); Mean Platelet Volume 10.8 fL (9.4-12.3); Monocytes Absolute Auto 1.3 X10*3/uL (0.1-1.2); Monocytes Percent Auto 7.8 % (2-11); Neutrophils Absolute Auto 10.9 x10*3/uL (2.0-8.3); Neutrophils Percent Auto 66.4 % (45-73); Platelet Count 413 X10*3/uL (160-400); Red Blood Count 4.47 X10*6/uL (4.20-5.50); Red Cell Distribution Width 13.2 % (11.0-16.0); White Blood Count 16.4 X10*3/uL (4.8-10.8)
[2021-09-13 09:40] LABS: Lactic Acid 1.5 mmol/L (0.5-2.0)
[2021-09-13 09:45] LABS: Alanine Aminotransferase 18 U/L (0-31); Alkaline Phosphatase 149 U/L (39-117); Anion Gap 16 (12-20); Aspartate Amino Transferase 17 U/L (5-31); Bilirubin Total 0.3 mg/dL (0.0-1.0); Blood Urea Nitrogen 15 mg/dL (9-16); Carbon Dioxide 22 mmol/L (22-29); Chloride 100 mmol/L (96-108); Creatinine Clr Calc Pharmacy 55.9; Estimated Glomerular Filt Rate 45; Glucose Random 335 mg/dL (60-115); Sodium 134 mmol/L (135-145); Total Protein 6.5 g/dL (6.5-8.0)
--- NOTE | 2021-09-13 09:49 | PHA.MEDREC ---
Pharmacy Consult ? Medication Reconciliation Pharmacy has completed the medication reconciliation. Patient reported all medications which matched previous history here. I called patient reported pharmacy [facility] to confirm medications. Per PDMP, claim history and pharmacy gabapentin last filled in June,. Patient reported a cholesterol medication but per pharmacy the medication was never filled therefore I removed from the home medication list. Patient reported 90 units of Lantus, this was last filled 01/16/21 however the script was for 54 units. This is in additon to Novolog 20 units TID. It is important to be cautious with patient's insulin dose as patient is either a bad historian or is not adherent to her medicaitons. Hedy Cueva, PharmD
[2021-09-13 09:55] LABS: IDNOW Serial# 16C4AD1C
[2021-09-13 09:56] LABS: COVID-19 Test Negative (Negative)
[2021-09-13 10:20] LABS: C Reactive Protein 9.87 mg/dL (< or = 0.50)
[2021-09-13 10:54] LABS: Erythrocyte Sedimentation Rate 85 MM/HR (0-20)
[2021-09-13] MEDS: Piperacillin Sodium/Tazobactam 3.375 GM in 0.9 % Sodium Chloride 50 ML IV ×2 (10:59→16:26)
[2021-09-13] MEDS: oxyCODONE HCl Immed Release 5 MG TABLET PO (10:59)
[2021-09-13] MEDS: Insulin Lispro 100 UNIT/ML 3 ML VIAL 12 UNIT SUBCUT (11:00)
[2021-09-13] MEDS: Acetaminophen 325 MG TABLET 975 MG PO (11:01)
[2021-09-13] MEDS: 0.9 % Sodium Chloride 1,000 ML 999 ML IVCONT (11:03)
[2021-09-13] MEDS: vancomycin HCL 1,000 MG, vancomycin HCL 750 MG in 0.9 % Sodium Chloride 500 ML 267.5 MG IV (12:42)
[2021-09-13 14:20] VITALS: BP 168/97; PULSE 72; RESP 18; TEMP 36.6; O2SAT 97
--- NOTE | 2021-09-13 14:53 | P.HPHOSP_ITS ---
History of Present Illness Date of Service: 09/13/21 Chief Complaint: Foot pain and discoloration This is a 51 yo F with a PMH of DM, prior L TMA, PAD, prior 6 week treatment for diabetic foot infection who presents to the ED today with complaints of worsening pain and darkening of the RLE. The patient reports that she noted a small abrasion on the toe about 5 days prior to admission. She reports that she typically follows with both vascular surgery and wound care. She saw vascular several days back and at that time, the 5th toe was reportedly gangrenous. She now presents with worsening pain. She reports difficulty ambulating due to patient. She denies any fevers or chills. She denies chest pain, sob, abd pain. In the ED, XR of the foot showed osteo and her ESR is significantly elevated. She was given IV vancomcyin/zosyn and admission has been requested. Review of Systems Review of Systems: negative except HPi [facility] Medical History Abscess Amputated toe of left foot Amputation of left foot BMI 39.0-39.9,adult Chronic heart failure with preserved ejection fraction (HFpEF) Chronic osteomyelitis of foot Diabetes Diabetic foot infection Diabetic foot infection Essential hypertension High cholesterol Hyperlipidemia Hypertension Insulin dependent diabetes mellitus Neuropathy Obesity Osteomyelitis PAD (peripheral artery disease) Type 2 diabetes mellitus with unspecified complications Uncontrolled diabetes mellitus Vitamin B12 deficiency VRE (vancomycin resistant enterococcus) culture positive Family History Mother Diabetes Hypertension Disk prolapse Father Diabetes Hypertension Sister No problems noted. Brother No problems noted. Daughter No problems noted. Son No problems noted. Surgical History H/O spinal fusion History of section History of tubal ligation Social History Household Members: Spouse Household Members Other:: Housing: Apartment Do you presently have visiting nurse or other home services: Yes Alcohol intake: never Patient Tobacco Use Status: Never used Tobacco Advance Directives: Yes Advance Directives on File: Yes Advance Directives Date on File: 02/15/21 service: No Current occupational status: unemployed Meds Allergies Allergy/AdvReac Type Severity Reaction Status Date / Time No Known Allergies Allergy Verified 09/13/21 06:43 [No Known Allergies*] Active Medications: Current Medications Acetaminophen (Acetaminophen 325 Mg Tablet) 650 mg PO Q6H PRN PRN Reason: Pain, Mild (Pain Scale 1-3) Amlodipine Besylate (Amlodipine Besylate 10 Mg Tablet) 10 mg PO DAILY [facility]; Protocol Aspirin (Aspirin 81 Mg Tab.Chew) 81 mg PO DAILY [facility] Enoxaparin Sodium (Enoxaparin Sodium 40 Mg/0.4 Ml Syringe) 40 mg SUBCUT Q24H [facility] Gabapentin (Gabapentin 300 Mg Capsule) 300 mg PO TID [facility] Vancomycin HCl 1,000 mg/Vancomycin HCl 750 mg/ Sodium Chloride 535 mls @ 267.5 mls/hr IV ONCE ONE Stop: 09/13/21 14:59 Last Admin: 09/13/21 12:42 Dose: 267.5 mls/hr Documented by: Piperacillin Sod/Tazobactam (Sod 3.375 gm/ Sodium Chloride) 50 mls @ 100 mls/hr IV Q6H [facility] Insulin Glargine (Insulin Glargine,Hum.Rec.Anlog 100 Unit/Ml 10 Ml Vial) 90 unit SUBCUT DAILY [facility] Insulin Human Lispro (Insulin Lispro 100 Unit/Ml 3 Ml Vial) 0 unit SUBCUT QIDACHS [facility]; Protocol Ondansetron HCl (Ondansetron Hcl 4 Mg/2 Ml Vial) 4 mg IVPUSH Q8H PRN PRN Reason: Nausea and Vomiting Pharmacy Consult (Consult Rx Perform Med Rec) 1 each MISCELLANE ONCE PRN PRN Reason: Consult order Pharmacy Consult (Consult Rx Vancomycin Dosing) 1 each MISCELLANE DAILY PRN PRN Reason: Consult order Pharmacy Consult (Consult Rx Vancomycin Dosing) 1 each MISCELLANE DAILY PRN PRN Reason: Consult order Sodium Chloride (0.9 % Sodium Chloride Flush 3 Ml Syringe) 3 ml IVFLUSH QSHIFT [facility] Home Medications Medication Instructions Recorded Confirmed Last Taken Type amlodipine 10 mg tablet 1 tab PO DAILY 03/19/20 09/13/21 09/12/21 History gabapentin 300 mg capsule 1 cap PO TID 03/19/20 09/13/21 09/12/21 History insulin aspart U-100 100 unit/mL 20 unit SUBCUT TIDAC 03/19/20 09/13/21 09/12/21 History subcutaneous solution (Novolog U-100 Insulin aspart) aspirin 81 mg chewable tablet 81 mg PO DAILY 06/17/21 09/13/21 09/12/21 History blood-glucose meter (FreeStyle #1 ea 07/03/21 Unknown History [place] Lite) insulin glargine 100 unit/mL 90 unit SUBCUT DAILY 09/13/21 09/13/21 09/12/21 History subcutaneous solution (Lantus U-100 Insulin) Physical Exam Vital Signs and Narrative: Vital Signs: Last Vital Signs Temp 97.8 F 09/13/21 14:20 Pulse 72 09/13/21 14:20 Resp 18 09/13/21 14:20 BP 168/97 H 09/13/21 14:20 Pulse Ox 97 09/13/21 14:20 BMI result Body Mass Index 36.6 Const: Other: Constitutional - Awake and Alert, No apparent distress Eyes - PERRLA, EOMI Cardiovascular - S1S2, RRR, No edema Respiratory - Normal lung expansion, Normal respiratory effort, No respiratory distress, CTA bilaterally Gastrointestinal - NT / ND; +BS; No rebound or guarding - No CVA tenderness Extremities - no calf tenderness bilaterally, no swelling Musculoskeletal - see pictures Skin - see pictures Neurological - Alert & oriented x3, No focal deficit Psychological - Appropriate affect Results Labs CBC and Chem 7: 09/13/21 09:13 09/13/21 09:13 Labs: Laboratory Results - last 24 hr 09/13/21 09/13/21 09/13/21 09:13 09:13 09:13 MCV 81.7 MCH 27.1 MCHC 33.2 RDW 13.2 Plt Count 413 H MPV 10.8 Immature Gran % (Auto) 0.4 Neut % (Auto) 66.4 Lymph % (Auto) 22.0 [place] % (Auto) 7.8 Eos % (Auto) 2.5 Baso % (Auto) 0.9 Lymph # (Auto) 3.6 [place] # (Auto) 1.3 H Eos # (Auto) 0.4 Baso # (Auto) 0.1 Abs Immat Gran (auto) 0.06 H Absolute Neuts (auto) 10.9 H Absolute Nucleated RBC 0.000 Nucleated RBC % (auto) 0.0 ESR Anion Gap 16 Estim Creat Clear Calc 55.9 Estimated GFR 45 Random Glucose 335 H Lactic Acid 1.5 Calcium 9.0 Total Bilirubin 0.3 AST 17 D ALT 18 Alkaline Phosphatase 149 H C-Reactive Protein 9.87 H Total Protein 6.5 Albumin 3.0 L COVID-19 (CHATA) COVID-19 Clin Com 09/13/21 09/13/21 09:13 09:13 MCV MCH MCHC RDW Plt Count MPV Immature Gran % (Auto) Neut % (Auto) Lymph % (Auto) [place] % (Auto) Eos % (Auto) Baso % (Auto) Lymph # (Auto) [place] # (Auto) Eos # (Auto) Baso # (Auto) Abs Immat Gran (auto) Absolute Neuts (auto) Absolute Nucleated RBC Nucleated RBC % (auto) ESR 85 H Anion Gap Estim Creat Clear Calc Estimated GFR Random Glucose Lactic Acid Calcium Total Bilirubin AST ALT Alkaline Phosphatase C-Reactive Protein Total Protein Albumin COVID-19 (CHATA) Negative COVID-19 Clin Com See Note Imaging Radiologist's Impressions: Impressions Toe X-Ray 09/13/21 07:38 IMPRESSION: Finding suggestive of osteomyelitis involving the middle and distal phalanges of the fifth toe. Assessment and Plan (1) Diabetic infection of right foot: Status: Acute Plan This is a 51 yo F with a PMH of poorly controlled DM (last A1C >10), PAD, prior diabetic foot infections and L TMA who presents with about a 5 day history of worsening RLE pain and discoloration of the 4th/5th toes. 1. Diabetic foot infection / osteomyelitis No evidence of sepsis Her 5th toe is gangrenous and I suspected will require amputation -- will consult vascular surgery. Cover with IV vancomcyin and zosyn. May need eventual ID consult 2. Uncontrolled DM with hyperglycemia continue basal + bolus POC QIDAC + Diabetic diet 3. HTN norvasc 4. PAD continue aspirin, unclear why she is not on a statin Full Code DVT pptx, Lovenox In light of her DFI / osteo and likely amputation, I anticipate a medically necessary inpatient hospitalization which is likey to span at least 2 midnights for treatment and monitoring response. This cannot be completed in a less acute setting. Quality Stroke Does the patient have a stroke diagnosis?: No VTE Prior VTE?: No VTE Risk Level:: Medical - moderate - high VTE Device Contraindication: Treatment Not Indicated VTE Drug Contraindication: N/A - Med Ordered
[2021-09-13] MEDS: Enoxaparin Sodium 40 MG/0.4 ML SYRINGE SUBCUT (15:10)
[2021-09-13] MEDS: amLODIPine Besylate 10 MG TABLET PO (15:10)
[2021-09-13 15:33] LABS: COVID-19 Test Negative (Negative); IDNOW Serial# 55D5AD1C
[2021-09-13] MEDS: Gabapentin 300 MG CAPSULE PO ×2 (15:51→21:04)
--- NOTE | 2021-09-13 16:28 | PHA.PROG ---
Admission Date/Time: September 13, 2021 14:43 Indication: bone and joint infection Weight in k.718 kg Adjusted body weight in K.3 [place] body weight in K.1 Obesity Dosing Indication % IBW:81% overweight Serum Creatinine - Last 168 Hours 09/13/21 09:13 Creatinine 1.26 Estimated CrCl and GFR - Last 168 Hours 09/13/21 09:13 Estim Creat Clear Calc 55.9 Estimated GFR 45 Vancomycin Loading Dose: 1750 mg Current Vancomycin Dosing Regimen:1250 mg q 24 hours Vancomycin Monitoring using AUC goal of 400 - 600 range with trough as surrogate marker: Date and Time for next Vancomycin Level to be drawn:random check for toxicity 09/15/21 Pharmacist Comments on Vancomycin Plan:predicted auc of 566 Vancomycin dosing will take advantage of Recommend as a clinical decision support tool that uses Bayesian modeling to calculate individual patient's pharmacokinetic parameters and forecast the patient's drug concentration time course with the target goal AUC 24 range of 400 - 600 mg/L/hr.
[2021-09-13 18:11] LABS: Glucose, Whole Blood 184 mg/dL (60-115)
[2021-09-13 18:27] VITALS: BP 155/83; PULSE 80; RESP 16; TEMP 36.6; O2SAT 98
[2021-09-13] MEDS: Insulin Lispro 100 UNIT/ML 3 ML VIAL SUBCUT ×2 (18:27→21:03)
[2021-09-13 20:59] LABS: Glucose, Whole Blood 288 mg/dL (60-115)
[2021-09-14] MEDS: Piperacillin Sodium/Tazobactam 3.375 GM in 0.9 % Sodium Chloride 50 ML IV ×3 (00:44→11:30)
[2021-09-14] MEDS: Acetaminophen 325 MG TABLET 650 MG PO ×2 (00:44→10:04)
[2021-09-14] MEDS: 0.9 % Sodium Chloride Flush 3 ML SYRINGE IVFLUSH ×2 (00:46→10:13)
[2021-09-14 05:56] VITALS: BP 163/75; PULSE 80; RESP 16; TEMP 36.1; O2SAT 96
[2021-09-14 07:27] LABS: Hematocrit 37.9 % (37.0-47.0); Hemoglobin 12.4 g/dl (12.0-16.0); Mean Corpuscular HGB Conc 32.7 g/dl (31.0-35.0); Mean Corpuscular Hemoglobin 26.8 pg (27.0-33.0); Mean Platelet Volume 10.7 fL (9.4-12.3); Platelet Count 436 X10*3/uL (160-400); Red Blood Count 4.62 X10*6/uL (4.20-5.50); Red Cell Distribution Width 13.2 % (11.0-16.0); White Blood Count 12.8 X10*3/uL (4.8-10.8)
[2021-09-14 07:29] LABS: Anion Gap 12 (12-20); Blood Urea Nitrogen 12 mg/dL (9-16); Calcium 8.6 mg/dL (8.4-10.2); Carbon Dioxide 24 mmol/L (22-29); Chloride 103 mmol/L (96-108); Creatinine Clr Calc Pharmacy 72.6; Estimated Glomerular Filt Rate > 60; Glucose Random 334 mg/dL (60-115); Potassium 4.2 mmol/L (3.3-5.1); Sodium 135 mmol/L (135-145)
--- NOTE | 2021-09-14 09:02 | PHA.PROG ---
Admission Date/Time: September 13, 2021 14:43 Indication: Toe Osteomylitis Weight in k.718 kg Adjusted body weight in K.3 [place] body weight in K.1 Obesity Dosing Indication % IBW:81% Serum Creatinine - Last 168 Hours 09/13/21 09/14/21 09:13 07:03 Creatinine 1.26 0.97 Estimated CrCl and GFR - Last 168 Hours 09/13/21 09/14/21 09:13 07:03 Estim Creat Clear Calc 55.9 72.6 Estimated GFR 45 > 60 Vancomycin Loading Dose: 1750 mg Current Vancomycin Dosing Regimen: 1250 mg Date and Time for next Vancomycin Level to be drawn: 09/15 @ 1000 Pharmacist Comments on Vancomycin Plan: Patient requires obesity dosing as %IBW > 130 Renal function improved in 24 hours, therefore dose to be increase. Patient could benefit from Q12H however since it has been 21 hour since last dose will continue with Q24H dosing Increase to vancomycin 1500 mg Q24H. Expected AUC 538 with a trough of 13.4. Pharmacy will continue to monitor renal function daily. Hedy Cueva, Oscar Vancomycin dosing will take advantage of [place] as a clinical decision support tool that uses Bayesian modeling to calculate individual patient's pharmacokinetic parameters and forecast the patient's drug concentration time course with the target goal AUC 24 range of 400 - 600 mg/L/hr.
[2021-09-14 09:34] LABS: Glucose, Whole Blood 354 mg/dL (60-115)
[2021-09-14] MEDS: Aspirin 81 MG TAB.CHEW PO (09:43)
[2021-09-14] MEDS: amLODIPine Besylate 10 MG TABLET PO (09:43)
[2021-09-14] MEDS: Gabapentin 300 MG CAPSULE PO (09:43)
[2021-09-14] MEDS: Insulin Lispro 100 UNIT/ML 3 ML VIAL SUBCUT ×2 (09:45→12:51)
[2021-09-14] MEDS: Insulin Glargine,Hum.rec.anlog 100 UNIT/ML 10 ML VIAL 90 UNIT SUBCUT (09:45)
[2021-09-14 11:06] VITALS: RESP 18
--- NOTE | 2021-09-14 11:09 | PM.CNGS ---
History of Present Illness Consult details Consult date: 09/14/21 Reason for consult: wound care Narrative: complex 51-year-old female who had seen in the office for nonhealing right 5th toe ulcer. She had been scheduled as an outpatient for ultrasound but the pain and discomfort had increased so she presented to the emergency room. At the time of my evaluation she was actually eating [employer] on. She reports that that right foot is just uncomfortable for her and was curious as to what needs to be done. Of note she has had noninvasive arterial testing. Review of Systems Review of Systems: Yes all other systems are reviewed and are negative Constitutional: Constitutional: Reports no additional constitutional complaints ENT: Reports Normal hearing present Cardiovascular: Cardiovascular: Denies chest pain, Denies chest pain at rest, Denies chest pain with activity and Denies pedal edema Respiratory: Respiratory: Denies cough Gastrointestinal: Gastrointestinal: Denies abdominal pain Musculoskeletal: Musculoskeletal: Denies abnormal gait, Denies muscle cramps and Denies radiating pain into limb Integumentary/Breasts: Skin/Breast: Denies skin ulcer and Denies wounds Neurologic: Reports Normal hearing present and Denies abnormal gait Psychiatric: Psychiatric: Reports no additional psychiatric complaints PMFSH Past Medical History Medical History Abscess Amputated toe of left foot Amputation of left foot BMI 39.0-39.9,adult Chronic heart failure with preserved ejection fraction (HFpEF) Chronic osteomyelitis of foot Diabetes Diabetic foot infection Diabetic foot infection Essential hypertension High cholesterol Hyperlipidemia Hypertension Insulin dependent diabetes mellitus Neuropathy Obesity Osteomyelitis PAD (peripheral artery disease) Type 2 diabetes mellitus with unspecified complications Uncontrolled diabetes mellitus Vitamin B12 deficiency VRE (vancomycin resistant enterococcus) culture positive Family History Family History Mother Diabetes Hypertension Disk prolapse Father Diabetes Hypertension Sister No problems noted. Brother No problems noted. Daughter No problems noted. Son No problems noted. Surgical History Surgical History H/O spinal fusion History of section History of tubal ligation Social History Social History Household Members: Spouse Household Members Other:: Housing: Apartment Do you presently have visiting nurse or other home services: Yes Alcohol intake: never Patient Tobacco Use Status: Never used Tobacco Advance Directives: Yes Advance Directives on File: Yes Advance Directives Date on File: 02/15/21 service: No Current occupational status: unemployed Meds Allergies Allergy/AdvReac Type Severity Reaction Status Date / Time No Known Allergies Allergy Verified 09/13/21 06:43 [No Known Allergies*] Active Medications: Current Medications Acetaminophen (Acetaminophen 325 Mg Tablet) 650 mg PO Q6H PRN PRN Reason: Pain, Mild (Pain Scale 1-3) Last Admin: 09/14/21 10:04 Dose: 650 mg Documented by: Amlodipine Besylate (Amlodipine Besylate 10 Mg Tablet) 10 mg PO DAILY [facility]; Protocol Last Admin: 09/14/21 09:43 Dose: 10 mg Documented by: Aspirin (Aspirin 81 Mg Tab.Chew) 81 mg PO DAILY [facility] Last Admin: 09/14/21 09:43 Dose: 81 mg Documented by: Enoxaparin Sodium (Enoxaparin Sodium 40 Mg/0.4 Ml Syringe) 40 mg SUBCUT Q24H [facility] Last Admin: 09/13/21 15:10 Dose: 40 mg Documented by: Gabapentin (Gabapentin 300 Mg Capsule) 300 mg PO TID [facility] Last Admin: 09/14/21 09:43 Dose: 300 mg Documented by: Piperacillin Sod/Tazobactam (Sod 3.375 gm/ Sodium Chloride) 50 mls @ 100 mls/hr IV Q6H [facility] Last Infusion: 09/14/21 09:06 Dose: Infused Documented by: Vancomycin HCl 1,500 mg/ (Sodium Chloride) 500 mls @ 333.333 mls/hr IV Q24H [facility] Insulin Glargine (Insulin Glargine,Hum.Rec.Anlog 100 Unit/Ml 10 Ml Vial) 90 unit SUBCUT DAILY [facility] Last Admin: 09/14/21 09:45 Dose: 90 unit Documented by: Insulin Human Lispro (Insulin Lispro 100 Unit/Ml 3 Ml Vial) 0 unit SUBCUT QIDACHS [facility]; Protocol Last Admin: 09/14/21 09:45 Dose: 10 unit Documented by: Ondansetron HCl (Ondansetron Hcl 4 Mg/2 Ml Vial) 4 mg IVPUSH Q8H PRN PRN Reason: Nausea and Vomiting Pharmacy Consult (Consult Rx Perform Med Rec) 1 each MISCELLANE ONCE PRN PRN Reason: Consult order Pharmacy Consult (Consult Rx Vancomycin Dosing) 1 each MISCELLANE DAILY PRN PRN Reason: Consult order Pharmacy Consult (Consult Rx Vancomycin Dosing) 1 each MISCELLANE DAILY PRN PRN Reason: Consult order Sodium Chloride (0.9 % Sodium Chloride Flush 3 Ml Syringe) 3 ml IVFLUSH QSHIFT [facility] Last Admin: 09/14/21 10:13 Dose: 3 ml Documented by: Home Medications Medication Instructions Recorded Confirmed Last Taken Type amlodipine 10 mg tablet 1 tab PO DAILY 03/19/20 09/13/21 09/12/21 History gabapentin 300 mg capsule 1 cap PO TID 03/19/20 09/13/21 09/12/21 History insulin aspart U-100 100 unit/mL 20 unit SUBCUT TIDAC 03/19/20 09/13/21 09/12/21 History subcutaneous solution (Novolog U-100 Insulin aspart) aspirin 81 mg chewable tablet 81 mg PO DAILY 06/17/21 09/13/21 09/12/21 History blood-glucose meter (Ascletisyle #1 ea 07/03/21 Unknown History [place] Lite) insulin glargine 100 unit/mL 90 unit SUBCUT DAILY 09/13/21 09/13/21 09/12/21 History subcutaneous solution (Lantus U-100 Insulin) Physical Exam Vital Signs: Vital Signs: Last Vital Signs Temp 97 F 09/14/21 05:56 Pulse 80 09/14/21 05:56 Resp 18 09/14/21 11:06 BP 163/75 H 09/14/21 05:56 Pulse Ox 96 09/14/21 05:56 BMI result Body Mass Index 36.6 Const: General: cooperative, healthy appearing and comfortable Orientation/consciousness: oriented to person, oriented to place and oriented to time HEENT: Head: Yes normal to inspection Neck: Neck: Yes normal visual inspection Carotids: no bruits Chest: Chest palpation & inspection: normal inspection of the chest Resp: Effort & Inspection: normal respiratory effort and able to speak in complete sentences Auscultation: clear to auscultation bilaterally, no crackles, no rales, no rhonchi and no wheezes Cardio: Rate: regular rate Rhythm: regular rhythm Heart sounds: S1 normal heart sound present and S2 normal heart sound present Bruits: no carotid bruits Peripheral pulses: Peripheral pulses 2+ throughout GI: Inspection: Yes normal to inspection Skin: Wounds: amputation site ( Left trans met well-healed) and wounds noted ( right 5th toe gangrene) Hair: normal Neuro: General: oriented to person, oriented to place and oriented to time Cranial nerves: Yes CN's II-XII intact bilaterally and Yes Normal hearing present Cognition (Neuro): normal cognition Motor exam (neuro): 5/5 motor strength present throughout Extrem: Other: venous exam: No significant superficial varicosities or spider telangiectasias, minimal edema General: No clubbing, No cyanosis and No edema Psych: Appearance: grossly normal Mental Status: mental status grossly normal Speech and movement: Normal speech and movement present Results Labs Result diagrams: 09/14/21 07:03 09/14/21 07:03 Labs: Abnormal lab results 09/13/21 09/13/21 09/14/21 Range/Units 18:07 20:56 07:03 WBC 12.8 H (4.8-10.8) X10*3/uL MCH 26.8 L (27.0-33.0) pg Plt Count 436 H (160-400) X10*3/uL POC Glucose 184 H 288 H (60-115) mg/dL Random Glucose (60-115) mg/dL 09/14/21 09/14/21 Range/Units 07:03 09:30 WBC (4.8-10.8) X10*3/uL MCH (27.0-33.0) pg Plt Count (160-400) X10*3/uL POC Glucose 354 H* (60-115) mg/dL Random Glucose 334 H (60-115) mg/dL Short CBC 09/14/21 Range/Units 07:03 WBC 12.8 H (4.8-10.8) X10*3/uL Hgb 12.4 (12.0-16.0) g/dl Hct 37.9 (37.0-47.0) % Plt Count 436 H (160-400) X10*3/uL BMP 09/14/21 07:03 Sodium 135 Potassium 4.2 Chloride 103 Carbon Dioxide 24 BUN 12 Creatinine 0.97 Calcium 8.6 All other labs normal. Imaging Additional studies: lower extremity arterial ultrasound reviewed written report and images are within normal limits Assessment and Plan (1) PAD (peripheral artery disease): Status: Acute Plan in short patient has right 5th toe gangrene. Arterial testing is within normal limits. She will require right 5th toe amputation. Risks benefits complications were discussed in detail with the patient. She understood and consented. This can be scheduled as an outpatient. If discharge we will schedule her within the next week. Thank you for allowing us to assist in her care. If there are any questions or concerns please do not hesitate to contact us. Procedures Date of Service Date of Service: 09/14/21
--- NOTE | 2021-09-14 11:55 | PC.NURSE ---
PT EATING [facility] VENKATS FOR BREAKFAST AND AGAIN FOR LUNCH. PT EDUCATED THIS IS NOT HELPING HER DIABETIC SITUATION AND NUTRITION IS VERY IMPORTANT FOR HEALING PROCESS. PT STATES I KNOW AND I DONT CARE.
[2021-09-14] MEDS: vancomycin HCL 1,500 MG in 0.9 % Sodium Chloride 500 ML 333.33 MG IV (12:10)
--- NOTE | 2021-09-14 13:08 | P.DS_ITS ---
DS: Providers Provider Date of Service: 09/14/21 Date of admission: 09/13/21 14:43 Primary care physician: Farhana Ellison MD Consults: 09/13/21 14:44 Consult to Vascular Surgery Routine Consulting Provider: John Peguero Reason for consultation: patient known to you, osteo of the 5th toe R foot DS: Diagnosis Discharge Diagnosis (1) PAD (peripheral artery disease): Status: Acute DS: Summary Hospital Course Hospital Course: Chief Complaint: Foot pain and discoloration This is a 51 yo F with a PMH of DM, prior L TMA, PAD, prior 6 week treatment for diabetic foot infection who presents to the ED today with complaints of worsening pain and darkening of the RLE. The patient reports that she noted a small abrasion on the toe about 5 days prior to admission. She reports that she typically follows with both vascular surgery and wound care. She saw vascular several days back and at that time, the 5th toe was reportedly gangrenous. She now presents with worsening pain. She reports difficulty ambulating due to patient. She denies any fevers or chills. She denies chest pain, sob, abd pain. In the ED, XR of the foot showed osteo and her ESR is significantly elevated. She was given IV vancomcyin/zosyn and admission has been requested. Hospital course: Patient was admitted and started on IV Zosyn and Vanco and evaluated by Dr. Peguero who recommends ampuation next week but due to long holiday weekend patient has elected to go home with oral antibiotics (Patient directed discharge) and if condition worsen before surgery will return to ED. Dr. Peguero's office will be in contact with her to arrang for surgery. She's further advised to ensure that she takes her meds as recommended Time Spent with Patient Time attestation: Total time spent providing and/or coordinating discharge services: Discharge coordination time: Greater than 30 minutes Quality: Safe Use of Opioids Does Pt have an Active Cancer Diagnosis on the Problem List?: No Quality: Stroke Does the patient have a stroke diagnosis?: No Physical Exam Vital Signs: Vital Signs: Last Vital Signs Temp 97 F 09/14/21 05:56 Pulse 80 09/14/21 05:56 Resp 18 09/14/21 11:06 BP 163/75 H 09/14/21 05:56 Pulse Ox 96 09/14/21 05:56 BMI result Body Mass Index 36.6 DS: Data Data Completed and Pending Completed studies during hospitalization [Text1]: Procedures Fluoroscopy of Aorta and Bilateral Lower Extremity Arteries (02/11/21) Insertion of Infusion Device into Superior Vena Cava, Percutaneous Approach (06/16/21) Labs on day of discharge: Laboratory Results - last 24 hr 09/13/21 09/13/21 09/13/21 15:10 18:07 20:56 WBC RBC Hgb Hct MCV MCH MCHC RDW Plt Count MPV Absolute Nucleated RBC Nucleated RBC % (auto) Sodium Potassium Chloride Carbon Dioxide Anion Gap BUN Creatinine Estim Creat Clear Calc Estimated GFR POC Glucose 184 H 288 H Random Glucose Calcium COVID-19 ([facility]) Negative COVID-19 Clin Com See Note 09/14/21 09/14/21 09/14/21 07:03 07:03 09:30 WBC 12.8 H RBC 4.62 Hgb 12.4 Hct 37.9 MCV 82.0 MCH 26.8 L MCHC 32.7 RDW 13.2 Plt Count 436 H MPV 10.7 Absolute Nucleated RBC 0.000 Nucleated RBC % (auto) 0.0 Sodium 135 Potassium 4.2 Chloride 103 Carbon Dioxide 24 Anion Gap 12 BUN 12 Creatinine 0.97 Estim Creat Clear Calc 72.6 Estimated GFR > 60 POC Glucose 354 H* Random Glucose 334 H Calcium 8.6 COVID-19 ([facility]) COVID-19 Clin Com Preliminary micro results at discharge 09/13/21 09:13 Blood Culture - Preliminary Blood - Venous No growth after 24 hours. 09/13/21 09:13 Blood Culture - Preliminary Blood - Venous No growth after 24 hours. Discharge Plan Discharge Anticipated Discharge Date/Time: 09/14/21 12:52 Patient Disposition: Home, Self-Care Discharge Diagnosis: Osteomylitis of the foot Referrals: Farhana Ellison MD [Primary Care Provider] - 1 Week Discharge Medications: New doxycycline hyclate 100 mg tablet 100 mg PO BID 10 Days Qty: 20 0RF amoxicillin-pot clavulanate 875-125 mg tablet 1 tab PO BID Qty: 20 0RF Continued mecobalamin (vitamin B12) 1,000 mcg tablet,disintegrating 1,000 mcg sublingual DAILY Qty: 30 2RF Rx Instructions: place tablet under tongue and allow to dissolve for at least30 secs before swallowing insulin aspart U-100 [Novolog U-100 Insulin aspart] 100 unit/mL solution 20 unit subcut TIDAC 0RF gabapentin 300 mg capsule 1 cap PO TID 0RF amlodipine 10 mg tablet 1 tab PO DAILY 0RF aspirin 81 mg Tablet,Chewable 81 mg PO DAILY 0RF Lantus U-100 Insulin 100 unit/mL solution 90 unit subcut DAILY 0RF (DME) blood-glucose meter [FreeStyle [place] Lite] Kit See Rx Instructions ea .ROUTE TID Qty: 1 0RF Rx Instructions: As directed Discharge Orders: Discharge Order (Routine); Ordered 09/14/21 Ordered By: Gil Vela Diet: advance to usual diet and diabetic diet Activity on Discharge: As tolerated Stand Alone Forms: Patient Portal Discharge page Care Plan Goals: Ampuatation ofor osteomylitis of the foot Health Concerns: Diabetic foot infection , osteomylitis, diabetes Plan of Treatment: Take Doxycline and Augmentin as recommended and follow up with Dr. Peguero next week for surgery--Dr Peguero's office will call you for appointment to come get surgery done next week Assessment: as above
--- NOTE | 2021-09-14 15:02 | MHC.CM.PN ---
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
[2021-09-14 16:53] LABS: Glucose, Whole Blood 305 mg/dL (60-115)
== END 2021-09-14 14:35 | disposition home or self-care (01) | DRG 344 ==
LOC: HO.ED 11:48 → HO.EDOVER 14:47
PROVIDERS: Physician Assistant; Admitting Provider Family Medicine; Emergency Provider Emergency Medicine; PCP Internal Medicine; Visit Provider Internal Medicine
DX: E11.69 Type 2 diabetes mellitus with other specified complication (principal); M86.9 Osteomyelitis, unspecified; E11.52 Type 2 diabetes mellitus with diabetic peripheral angiopathy with gangrene; E11.65 Type 2 diabetes mellitus with hyperglycemia; E78.5 Hyperlipidemia, unspecified; I10 Essential (primary) hypertension; Z20.822 Contact with and (suspected) exposure to COVID-19; Z98.51 Tubal ligation status; Z79.4 Long term (current) use of insulin; Z79.82 Long term (current) use of aspirin; Z79.899 Other long term (current) drug therapy
CPT/HCPCS: 36415; 73660; 80048; 80053; 82947; 83605; 85025; 85027; 85652; 86140; 87040; 87635; 93005; 93926; 96365; 96366; 96367; 99284; 99285; J1650; J2543; J3370

== ENCOUNTER 2021-09-20 10:12 | Day surgery (SDC) | payer OTHER, SELFPAY ==
[2021-09-20] VITALS (7 sets, daily range): BP systolic 142–164; BP diastolic 68–87; PULSE 76–88; RESP 16–18; TEMP 36.1–36.7; O2SAT 96–100; BMI 38.9
--- NOTE | 2021-09-20 09:58 | P.CONAN_ITS ---
[facility] Active Problems Active Problems: All Active Problems (Updated 09/19/21 @ 14:50 by Breanna Rene RN) Diabetic foot ulcer with osteomyelitis (Acute) Sepsis (Acute) AMY (acute kidney injury) (Acute) Current mild episode of major depressive disorder (Acute) Vitamin D deficiency (Acute) Vitamin B1 deficiency (Acute) BMI 38.0-38.9,adult (Acute) Diabetic infection of right foot (Acute) Leukocytosis (Acute) Elevated erythrocyte sedimentation rate (Acute) Vitamin B12 deficiency (Acute) Hyperlipidemia (Acute) BMI 39.0-39.9,adult (Acute) Obesity (Acute) Chronic heart failure with preserved ejection fraction (HFpEF) (Acute) VRE (vancomycin resistant enterococcus) culture positive (Acute) Osteomyelitis (Acute) Past Medical History Medical History Abscess Amputated toe of left foot Amputation of left foot BMI 39.0-39.9,adult Chronic heart failure with preserved ejection fraction (HFpEF) Chronic osteomyelitis of foot Diabetes Diabetic foot infection Hyperlipidemia Hypertension Insulin dependent diabetes mellitus Neuropathy Obesity Osteomyelitis PAD (peripheral artery disease) Type 2 diabetes mellitus with unspecified complications Vitamin B12 deficiency VRE (vancomycin resistant enterococcus) culture positive Family History Family History Mother Diabetes Hypertension Disk prolapse Father Diabetes Hypertension Sister No problems noted. Brother No problems noted. Daughter No problems noted. Son No problems noted. Surgical History Surgical History H/O spinal fusion History of section History of tubal ligation History of Problems with Anesthesia: No Social History Social History Household Members: Spouse Household Members Other:: Housing: Apartment Do you presently have visiting nurse or other home services: Yes Alcohol intake: never Patient Tobacco Use Status: Never used Tobacco Use of substances other than those prescribed or required for medical reasons: No Are you DNR?: No Advance Directives: No Advance Directives Information Provided: Yes Advance Directives Date on File: 02/15/21 Recently lost weight without trying: No Nutrition Risks: No Nutritional Risk service: No Current occupational status: unemployed Meds Allergies Allergy/AdvReac Type Severity Reaction Status Date / Time No Known Allergies Allergy Verified 09/13/21 06:43 [No Known Allergies*] Home Medications Medication Instructions Recorded Confirmed Last Taken Type amlodipine 10 mg tablet 1 tab PO DAILY 03/19/20 09/13/21 09/12/21 History gabapentin 300 mg capsule 1 cap PO TID 03/19/20 09/13/21 09/12/21 History insulin aspart U-100 100 unit/mL 20 unit SUBCUT TIDAC 03/19/20 09/13/21 09/12/21 History subcutaneous solution (Novolog U-100 Insulin aspart) aspirin 81 mg chewable tablet 81 mg PO DAILY 06/17/21 09/13/21 09/12/21 History blood-glucose meter (FreeStyle #1 ea 07/03/21 Unknown History [place] Lite) insulin glargine 100 unit/mL 90 unit SUBCUT DAILY 09/13/21 09/13/21 09/12/21 History subcutaneous solution (Lantus U-100 Insulin) Exam Exam Date and Time: September 20, 2021 0958 Airway Mallampati Class: II TM Dist: >3cm Neck ROM: Full Heart: RRR Lungs: CTA Assessment and Plan Assessment Anesthesia Assessment: Anesthesia Plan Discussed and Chart Reviewed Final Anesthetic Review History of Problems with Anesthesia: No NPO: Yes ASA Class: III Final Preanesthetic Review: Meds/Allgs Chart Reviewed, Consent Obtained/Reviewed and Anes Risks/Benef Reviewed Patient Risk: Intermediate Procedure Risk: Low Anesthetic Plan Anesthetic Plan: GA Disposition: Standard PACU
[2021-09-20 11:13] LABS: Glucose, Whole Blood 117 mg/dL (60-115)
[2021-09-20] MEDS: Lactated Ringers 1,000 ML 50 ML IVCONT (11:20)
--- NOTE | 2021-09-20 11:57 | MHC.SHP ---
Pre-Procedural Eval Section A Date of Service: 09/20/21 The patient is an INPATIENT: No Changes since office visit: Yes Patient answered all questions The History & Physical has been completed within 30 days and I have reviewed it.: Yes Section B Chief Complaint: osteomyelitis Allergies: Allergies Allergy/AdvReac Type Severity Reaction Status Date / Time No Known Allergies Allergy Verified 09/13/21 06:43 [No Known Allergies*] Plan I have reviewed the history and physical and performed a pertinent physical examination on my patient. No changes have occurred unless specified.
[2021-09-20] MEDS: oxyCODONE HCl Immed Release 5 MG TABLET PO (13:07)
[2021-09-20] MEDS: Acetaminophen 325 MG TABLET 650 MG PO (13:07)
--- NOTE | 2021-09-20 13:07 | P.OP_ITS ---
Operative Note Operative Note Date of Service: 09/20/21 Narrative: Operative note by [facility] Preoperative diagnosis: Right 5th toe gangrene Postoperative diagnosis: Same Procedure: Right 5th toe amputation Surgeon:John Peguero M.D. Cash Posting Specialist: None Anesthesia: General Specimens: 1 Drains: None Estimated blood loss: Minimal Indications: 51-year-old female with uncontrolled diabetes was seen in the hospital this past weekend. She has a gangrenous right 5th toe. the patient has signed the informed consent after reviewing risks, complications, benefits, and alternatives previously discussed with the patient. The patient was given the opportunity to ask any additional questions or voice any concerns. All questions were answered to the patient's satisfaction. Procedure in detail: Patient was brought to the operating room prior to which a time-out was called for patient identification and site verification. Right leg was prepped and draped in standard surgical fashion. A curvilinear fishmouth incision was carried out over the 5th toe. This was brought down to the metatarsal head. We dissected this area clear. Once we were able to cut down we removed the toe in its entirety. This was passed off the table as specimen. Once this was accomplished adequate hemostasis was obtained using electrocautery. The wound was thoroughly irrigated out with copious amounts of saline. Once this was all accomplished deep layer was reapproximated using a 2 0 poly Sorb suture. We did the same with the superficial layer and finally skin was closed with a 3-0 nylon in a mattress fashion Xeroform and a sterile dressing were applied. At the end the case sponge instrument counts were correct. Patient tolerated the procedure well. Returned to recovery with stable vitals. This note is constructed using voice recognition software. While every effort has been made to ensure accuracy, oversize load pilot escort errors may have been included. Thank you for allowing me to participate in the care of your patient. Yours sincerely, John Peguero MD, FACS, R.P.V.I.
== END 2021-09-20 13:55 | disposition home or self-care (01) ==
PROVIDERS: PCP Internal Medicine; Visit Provider Surgery Vascular Surgery
PROC: (CPT 28810; principal; 2021-09-20 11:50)
DX: M86.171 Other acute osteomyelitis, right ankle and foot (principal); E11.52 Type 2 diabetes mellitus with diabetic peripheral angiopathy with gangrene; E11.65 Type 2 diabetes mellitus with hyperglycemia; I96 Gangrene, not elsewhere classified; Z79.4 Long term (current) use of insulin; M90.571 Osteonecrosis in diseases classified elsewhere, right ankle and foot; G62.9 Polyneuropathy, unspecified; I11.0 Hypertensive heart disease with heart failure; I50.32 Chronic diastolic (congestive) heart failure; E66.9 Obesity, unspecified; Z68.39 Body mass index [BMI] 39.0-39.9, adult; Z89.432 Acquired absence of left foot; E78.5 Hyperlipidemia, unspecified; E53.8 Deficiency of other specified B group vitamins
CPT/HCPCS: 28810; 82947; 88305; 88311; J0690; J2250; J3010

== ENCOUNTER → 2021-10-02 15:21 | Outpatient (BNVA) | payer OTHER, SELFPAY | PROVIDERS: PCP Internal Medicine; Visit Provider Surgery Vascular Surgery | DX: T81.41XA Infection following a procedure, superficial incisional surgical site, initial encounter (principal); L03.115 Cellulitis of right lower limb; Z89.421 Acquired absence of other right toe(s) | CPT/HCPCS: 99212 ==

== ENCOUNTER → 2021-10-09 13:50 | Outpatient (BNVA) | payer OTHER, SELFPAY | PROVIDERS: PCP Internal Medicine; Visit Provider Surgery Vascular Surgery | DX: Z47.81 Encounter for orthopedic aftercare following surgical amputation (principal); Z89.421 Acquired absence of other right toe(s) | CPT/HCPCS: 99212 ==

== ENCOUNTER → 2021-10-30 13:59 | Outpatient (BNVA) | payer OTHER, SELFPAY | PROVIDERS: PCP Internal Medicine; Visit Provider Surgery Vascular Surgery | DX: E11.621 Type 2 diabetes mellitus with foot ulcer (principal); L97.509 Non-pressure chronic ulcer of other part of unspecified foot with unspecified severity; E11.69 Type 2 diabetes mellitus with other specified complication; M86.9 Osteomyelitis, unspecified | CPT/HCPCS: 99212 ==

== ENCOUNTER 2021-11-29 11:50 | Inpatient (IN) | payer OTHER, SELFPAY ==
--- NOTE | ~2021-11-29 | XR_ITS ---
EXAMINATION: XR FOOT, RIGHT CLINICAL INFORMATION: Osteopenia. COMPARISON: None TECHNIQUE: AP, lateral, and oblique views of the right foot. FINDINGS: There is complete erosion or lytic process involving distal fifth metatarsal with moderate soft tissue swelling. There has been amputation of fifth toe beyond the MTP joint. Also visualized is gas in the proximal left fourth toe but no bony erosive changes or periosteal thickening. The first 3 toes are unremarkable. The ankle mortise and subtalar joints are normal. There is vascular calcification of posterior tibial artery. XR/XR foot RT min 3V IMPRESSION: Osteomyelitis left fifth metatarsal with amputation fifth toe beyond the MTP joint. There is soft tissue gas seen adjacent to the fourth proximal fourth toe likely infectious process. However there is no periosteal erosion or lytic process to suspect any osteomyelitis of the fourth digit. The other first 3 digits are unremarkable.
[2021-11-29 12:25] VITALS: BP 102/65; BP 150/90; PULSE 89; PULSE 96; RESP 18; TEMP 36.8; O2SAT 96; O2SAT 97; BMI 36.0
[2021-11-29 15:17] LABS: COVID-19 Test Negative (Negative); IDNOW Serial# 9DB6401D
[2021-11-29 16:16] LABS: Glucose, Whole Blood 290 mg/dL (60-115)
[2021-11-29 17:12] VITALS: BP 194/90; PULSE 98; RESP 16; O2SAT 97
[2021-11-29] MEDS: cefEPime HCl 2 GM in 0.9 % Sodium Chloride 50 ML IV (17:57)
[2021-11-29] MEDS: 0.9 % Sodium Chloride 1,000 ML 999 ML IVCONT ×2 (17:59→20:53)
[2021-11-29 18:03] LABS: Hematocrit 30.5 % (37.0-47.0); Hemoglobin 9.3 g/dl (12.0-16.0); Mean Corpuscular HGB Conc 30.5 g/dl (31.0-35.0); Mean Corpuscular Volume 85.2 fL (80.0-98.0); Mean Platelet Volume 9.9 fL (9.4-12.3); Platelet Count 668 X10*3/uL (160-400); Red Blood Count 3.58 X10*6/uL (4.20-5.50); Red Cell Distribution Width 15.2 % (11.0-16.0); White Blood Count 23.1 X10*3/uL (4.8-10.8)
[2021-11-29 18:14] LABS: Lactic Acid 1.3 mmol/L (0.5-2.0)
--- NOTE | 2021-11-29 18:29 | ED.EXTPRO ---
HPI - Extremity Problem General Chief complaint: Extremity Problem Stated complaint: RIGHT FOOT PAIN Time Seen by Provider: 11/29/21 17:15 Source: patient Limitations: no limitations History of Present Illness HPI Narrative: this is a 51 years old the female with history of diabetes presented to the emergency department complaining of of a right foot infection she is status post amputation 09/20,she is been follow by Dr Peguero because not healing site,she is also follow by wound clinic MD Complaint: extremity pain and extremity swelling Onset (ago): week(s) (4) Pain Consistency: constant Location: left and other (foot) Relieving factors: nothing Exacerbating factors: nothing Related Data Home Medications Medication Instructions Recorded Confirmed amlodipine 10 mg tablet 1 tab PO DAILY 03/19/20 11/29/21 gabapentin 300 mg capsule 1 cap PO TID 03/19/20 11/29/21 insulin aspart U-100 100 unit/mL 25 unit subcut TIDAC 03/19/20 11/29/21 subcutaneous solution (Novolog U-100 Insulin aspart) aspirin 81 mg chewable tablet 81 mg PO DAILY 06/17/21 11/29/21 blood-glucose meter (FreeStyle #1 ea 07/03/21 [place] Lite kit) insulin glargine 100 unit/mL 90 unit subcut DAILY 09/13/21 11/29/21 subcutaneous solution (Lantus U-100 Insulin) atorvastatin 80 mg tablet 80 mg PO DAILY 11/29/21 11/29/21 Previous Rx's Medication Instructions Recorded mecobalamin (vitamin B12) 1,000 1,000 mcg sublingual DAILY #30 tabs 10/30/20 mcg disintegrating tablet,sublingual Allergies Allergy/AdvReac Type Severity Reaction Status Date / Time No Known Allergies Allergy Verified 10/30/21 14:37 [No Known Allergies*] Review of Systems Constitutional: Constitutional: Reports no additional constitutional complaints ENT: Reports system reviewed and no additional complaints, except as documented Cardiovascular: Cardiovascular: Reports no additional cardiovascular complaints Respiratory: Respiratory: Reports no additional respiratory complaints PMFSH Past Medical History Medical History Abscess Amputated toe of left foot Amputation of left foot BMI 39.0-39.9,adult Chronic heart failure with preserved ejection fraction (HFpEF) Chronic osteomyelitis of foot Diabetes Diabetic foot infection Hyperlipidemia Hypertension Insulin dependent diabetes mellitus Neuropathy Obesity Osteomyelitis PAD (peripheral artery disease) Type 2 diabetes mellitus with unspecified complications Vitamin B12 deficiency VRE (vancomycin resistant enterococcus) culture positive Surgical History H/O spinal fusion History of section History of tubal ligation Family History Family History Mother Diabetes Hypertension Disk prolapse Father Diabetes Hypertension Sister No problems noted. Brother No problems noted. Daughter No problems noted. Son No problems noted. Social History Social History Household Members: Spouse Household Members Other:: Housing: Apartment Do you presently have visiting nurse or other home services: Yes Alcohol intake: never Patient Tobacco Use Status: Never used Tobacco Advance Directives: Yes Advance Directives on File: Yes Advance Directives Date on File: 02/15/21 service: No Current occupational status: unemployed Physical Exam Vital Signs: Vital Signs: Last Vital Signs Temp 98.0 F 11/29/21 20:33 Pulse 90 11/29/21 20:33 Resp 16 11/29/21 17:12 BP 134/69 11/29/21 20:33 Pulse Ox 98 11/29/21 20:33 O2 Del Method 11/29/21 20:33 BMI result Body Mass Index 36.0 Const: Other: she has no toxic-appearing she looks well she is afebrile General: cooperative, healthy appearing, comfortable and no acute distress Nutritional Appearance: average body habitus Orientation/consciousness: patient oriented x3 Limitations: no limitations HEENT: Head: Yes normal to inspection Throat: Yes posterior oropharynx normal Neck: Neck: Yes normal visual inspection, Yes full ROM and Yes no lymphadenopathy Chest: Chest palpation & inspection: normal inspection of the chest Resp: Effort & Inspection: normal respiratory effort Auscultation: clear to auscultation bilaterally Cardio: Jugular venous distension: no JVD Rate: regular rate Rhythm: regular rhythm GI: Inspection: Yes normal to inspection Palpation (GI): Soft to palpation, not firm, nontender and no guarding Skin: General skin exam: no rashes or lesions noted Neuro: General: patient oriented x3 Extrem: Other: examination of the left foot showed a not healing ulcer with them necrotic 4th toe Course Reevaluation(s) Reevaluation #1: I consulted with Dr Handy covering Dr Peguero,NPO after midnight Time: 18:39 Reevaluation #2: lactic acid normal she is not hypotensive looks well clinically IV AB started,spoke with hospitalist who accept the pt. I do not think this pt has Nec-fas she is not toxic,normal lactic acid ,no tachycardia,no hypotensive,no tachypnea,no altered mental status . Her QSOFA score is 0 MDM - Extremity (Nontraumatic) MDM Narrative Medical decision making narrative: this is 51 years old female with a not healing wound will admit for IV AB Lab Data Result diagrams: 11/29/21 17:52 11/29/21 19:50 Labs: Lab Results 11/29/21 11/29/21 11/29/21 Range/Units 14:56 16:11 17:52 WBC 23.1 H (4.8-10.8) X10*3/uL RBC 3.58 L (4.20-5.50) X10*6/uL Hgb 9.3 L D (12.0-16.0) g/dl Hct 30.5 L (37.0-47.0) % MCV 85.2 (80.0-98.0) fL MCH 26.0 L (27.0-33.0) pg MCHC 30.5 L (31.0-35.0) g/dl RDW 15.2 (11.0-16.0) % Plt Count 668 H D (160-400) X10*3/uL MPV 9.9 (9.4-12.3) fL Absolute Nucleated RBC 0.000 (0.0-0.012) X10*3/uL Nucleated RBC % (auto) 0.0 (0.0-0.2) /100WBC POC Glucose 290 H (60-115) mg/dL Lactic Acid (0.5-2.0) mmol/L Total Bilirubin Direct Bilirubin AST ALT Alkaline Phosphatase Total Protein Albumin COVID-19 (CHATA) Negative (Negative) COVID-19 Clin Com See Note 11/29/21 11/29/21 Range/Units 17:52 17:53 WBC (4.8-10.8) X10*3/uL RBC (4.20-5.50) X10*6/uL Hgb (12.0-16.0) g/dl Hct (37.0-47.0) % MCV (80.0-98.0) fL MCH (27.0-33.0) pg MCHC (31.0-35.0) g/dl RDW (11.0-16.0) % Plt Count (160-400) X10*3/uL MPV (9.4-12.3) fL Absolute Nucleated RBC (0.0-0.012) X10*3/uL Nucleated RBC % (auto) (0.0-0.2) /100WBC POC Glucose (60-115) mg/dL Lactic Acid 1.3 (0.5-2.0) mmol/L Total Bilirubin Cancelled Direct Bilirubin Cancelled AST Cancelled ALT Cancelled Alkaline Phosphatase Cancelled Total Protein Cancelled Albumin Cancelled COVID-19 (CHATA) (Negative) COVID-19 Clin Com Imaging Data foot: Radiologist's impression: TECHNIQUE: AP, lateral, and oblique views of the right foot. FINDINGS: There is complete erosion or lytic process involving distal fifth metatarsal with moderate soft tissue swelling. There has been amputation of fifth toe beyond the MTP joint. Also visualized is gas in the proximal left fourth toe but no bony erosive changes or periosteal thickening. The first 3 toes are unremarkable. The ankle mortise and subtalar joints are normal. There is vascular calcification of posterior tibial artery. XR/XR foot RT min 3V IMPRESSION: Osteomyelitis left fifth metatarsal with amputation fifth toe beyond the MTP joint. ? There is soft tissue gas seen adjacent to the fourth proximal fourth toe likely infectious process. However there is no periosteal erosion or lytic process to suspect any osteomyelitis of the fourth digit. The other first 3 digits are unremarkable. Dictated By: Trung Victoria MD Signed By: <Electronically signed by Trung Victoria MD in [place]> 11/29/211823 DD/ 31 TD/TT:? [employer] Helper: [facility] [place] Discharge Clinical Impression: Diabetic infection of right foot Patient Disposition: Admitted As Inpatient
[2021-11-29] MEDS: Morphine Sulfate 4 MG/ML CARTRIDGE IVPUSH (18:43)
--- NOTE | 2021-11-29 18:45 | PC.NURSE ---
Pt medicated for pain. Eating dinner. Feet elevated on pillows.
--- NOTE | 2021-11-29 19:11 | PHA.MEDREC ---
Pharmacy Consult ? Medication Reconciliation Pharmacy has completed the medication reconciliation.
--- NOTE | 2021-11-29 19:47 | P.HPHOSP_ITS ---
History of Present Illness Date of Service: 11/29/21 Chief Complaint: foot pain This is a 51-year-old female with past medical history of diabetes, history of amputation of left foot secondary to osteomyelitis, CHF, chronic osteomyelitis, HTN, neuropathy, P AD, type 2 diabetes , history of VRE, presents to the [facility] with complaints of right foot infection. Patient reports that she was going to wound care clinic as well as Dr. Jurado office with planned surgery for osteomyelitis of 5th toe on the right on the 16th of the month, but she has developed significant pain in her right foot, as well as draining at the sole of the foot and decided to come to the ED instead. She denies any fever no chills, reports the pain is severe,, nonradiating, patient denies any chest pain, no abdominal pain nausea or vomiting, no diarrhea constipation, no urinary symptoms. Next On arrival to the ED patient hemodynamically stable with no significant abnormal vitals Labs are significant for WBC count of 23, hemoglobin of 9.3, hematocrit 30.5, Right foot x-ray showed osteomyelitis of left 5th metatarsal with amputation of left toe beyond the MTP joint, there is soft tissue gas seen adjacent to the 4th proximal 4th toe likely infectious process, Patient started on IV antibiotics and will be admitted for further management Review of Systems Review of Systems: Yes all other systems are reviewed and are negative [facility] Medical History Abscess Amputated toe of left foot Amputation of left foot BMI 39.0-39.9,adult Chronic heart failure with preserved ejection fraction (HFpEF) Chronic osteomyelitis of foot Diabetes Diabetic foot infection Hyperlipidemia Hypertension Insulin dependent diabetes mellitus Neuropathy Obesity Osteomyelitis PAD (peripheral artery disease) Type 2 diabetes mellitus with unspecified complications Vitamin B12 deficiency VRE (vancomycin resistant enterococcus) culture positive Family History Mother Diabetes Hypertension Disk prolapse Father Diabetes Hypertension Sister No problems noted. Brother No problems noted. Daughter No problems noted. Son No problems noted. Surgical History H/O spinal fusion History of section History of tubal ligation Social History Household Members: Spouse Household Members Other:: Housing: Apartment Do you presently have visiting nurse or other home services: Yes Alcohol intake: never Patient Tobacco Use Status: Never used Tobacco Advance Directives: Yes Advance Directives on File: Yes Advance Directives Date on File: 02/15/21 service: No Current occupational status: unemployed Meds Allergies Allergy/AdvReac Type Severity Reaction Status Date / Time No Known Allergies Allergy Verified 10/30/21 14:37 [No Known Allergies*] Active Medications: Current Medications Acetaminophen (Acetaminophen 325 Mg Tablet) 650 mg PO Q6H PRN PRN Reason: Pain, Mild (Pain Scale 1-3) Docusate Sodium (Docusate Sodium 100 Mg Capsule) 100 mg PO DAILY PRN PRN Reason: Constipation Enoxaparin Sodium (Enoxaparin Sodium 40 Mg/0.4 Ml Syringe) 40 mg SUBCUT Q24H ANGÉLICA Vancomycin HCl () 2,000 mg in 520 mls @ 260 mls/hr IV ONCE ONE Stop: 11/29/21 19:59 Last Admin: 11/29/21 18:41 Dose: 260 mls/hr Piperacillin Sod/Tazobactam (Sod 3.375 gm/ Sodium Chloride) 50 mls @ 100 mls/hr IV Q6H ANGÉLICA Vancomycin HCl 1,250 mg/ (Sodium Chloride) 250 mls @ 166.667 mls/hr IV Q12H ANGÉLICA Morphine Sulfate (Morphine Sulfate 4 Mg/Ml Cartridge) 4 mg IVPUSH Q4H PRN; Protocol PRN Reason: Pain, Severe (Pain Scale 7-10) Ondansetron HCl (Ondansetron Hcl 4 Mg/2 Ml Vial) 4 mg IVPUSH Q8H PRN PRN Reason: Nausea and Vomiting Pharmacy Consult (Consult Rx Vancomycin Dosing) 1 each MISCELLANE DAILY PRN PRN Reason: Consult order Pharmacy Consult (Consult Rx Vancomycin Dosing) 1 each MISCELLANE DAILY PRN PRN Reason: Consult order Sodium Chloride (0.9 % Sodium Chloride Flush 3 Ml Syringe) 3 ml IVFLUSH QSHIFT [facility] Home Medications Medication Instructions Recorded Confirmed Last Taken Type amlodipine 10 mg tablet 1 tab PO DAILY 03/19/20 11/29/21 11/28/21 History gabapentin 300 mg capsule 1 cap PO TID 03/19/20 11/29/21 11/28/21 History insulin aspart U-100 100 unit/mL 25 unit subcut TIDAC 03/19/20 11/29/21 11/29/21 History subcutaneous solution (Novolog U-100 Insulin aspart) aspirin 81 mg chewable tablet 81 mg PO DAILY 06/17/21 11/29/21 11/28/21 History blood-glucose meter (FreeStyle #1 ea 07/03/21 11/28/21 History [place] Lite kit) insulin glargine 100 unit/mL 90 unit subcut DAILY 09/13/21 11/29/21 11/28/21 History subcutaneous solution (Lantus U-100 Insulin) atorvastatin 80 mg tablet 80 mg PO DAILY 11/29/21 11/29/21 11/28/21 History Physical Exam 2 Vital Signs and Narrative: Vital Signs: Last Vital Signs Temp 98.2 F 11/29/21 12:25 Pulse 98 11/29/21 17:12 Resp 16 11/29/21 17:12 BP 194/90 H 11/29/21 17:12 Pulse Ox 97 11/29/21 17:12 O2 Del Method 11/29/21 17:12 BMI result Body Mass Index 36.0 Const: General: cooperative and no acute distress Orientation/consciousness: patient oriented x3 Eyes: General: appearance normal, both eyes and all related structures Resp: Effort & Inspection: normal respiratory effort Auscultation: clear to auscultation bilaterally Cardio: Rate: regular rate Rhythm: regular rhythm GI: Palpation (GI): Soft to palpation Auscultation: normal bowel sounds Skin: General skin exam: no rashes or lesions noted Neuro: General: patient oriented x3 Cognition (Neuro): normal cognition Extrem: Other: Left toe amputation of all 5 toes, there is an ulcer but it appears to be well healed, no evidence of acute infection of the left foot Right foot 5th metatarsal losing, showing bone, also multiple ulcers in the dorsum of the foot with a yellow serosanguineous discharge Results Labs CBC and Chem 7: 11/29/21 17:52 11/29/21 19:50 Labs: Laboratory Results - last 24 hr 11/29/21 11/29/21 11/29/21 14:56 16:11 17:52 MCV 85.2 MCH 26.0 L MCHC 30.5 L RDW 15.2 Plt Count 668 H D MPV 9.9 Absolute Nucleated RBC 0.000 Nucleated RBC % (auto) 0.0 POC Glucose 290 H Lactic Acid Total Bilirubin Direct Bilirubin AST ALT Alkaline Phosphatase Total Protein Albumin COVID-19 (CHATA) Negative COVID-19 Clin Com See Note 11/29/21 11/29/21 17:52 17:53 MCV MCH MCHC RDW Plt Count MPV Absolute Nucleated RBC Nucleated RBC % (auto) POC Glucose Lactic Acid 1.3 Total Bilirubin Cancelled Direct Bilirubin Cancelled AST Cancelled ALT Cancelled Alkaline Phosphatase Cancelled Total Protein Cancelled Albumin Cancelled COVID-19 (CHATA) COVID-19 Clin Com Imaging Radiologist's Impressions: Impressions Foot X-Ray 11/29/21 17:32 IMPRESSION: Osteomyelitis left fifth metatarsal with amputation fifth toe beyond the MTP joint. There is soft tissue gas seen adjacent to the fourth proximal fourth toe likely infectious process. However there is no periosteal erosion or lytic process to suspect any osteomyelitis of the fourth digit. The other first 3 digits are unremarkable. Assessment and Plan (1) Diabetic infection of right foot: Status: Acute (2) Status post amputation of toe of right foot: Status: Acute (3) Diabetic foot infection: Status: Acute Plan 51-year-old female with past medical history of diabetes as well as osteomyelitis presents with infection of right foot # osteomyelitis of right foot - will treat with IV antibiotics - follow cultures - Dr. Patel, surgery consulted- being covered by general surgery - want to take patient to OR in a.m. - will keep NPO # diabetic foot infection - management as above - infectious disease consulted - follow culture # diabetes - continue home insulin - low-dose sliding insulin - diabetic diet # hyperlipidemia - continue sent # hypertension - stable - continue antihypertensives DVT prophylaxis: STD in anticipation of surgical intervention in a.m. Given patient's osteomyelitis and requirement for IV antibiotics patient will require a minimum 2 night hospital stay for further management Quality Stroke Does the patient have a stroke diagnosis?: No VTE Prior VTE?: No VTE Risk Level:: Medical - moderate - high VTE Device Contraindication: Treatment Not Indicated VTE Drug Contraindication: N/A - Med Ordered
--- NOTE | 2021-11-29 20:02 | PC.NURSE ---
Right and left lower extremity wounds cleansed and wrapped with a dry clean dressing. Small open area noted to the LLE and numerous areas of open wounds and white slough noted to the RLE at the site of amputation as well as an open area to the bottom of the foot.
[2021-11-29 20:33] VITALS: BP 134/69; PULSE 90; TEMP 36.7; O2SAT 98
[2021-11-29 20:43] LABS: Alanine Aminotransferase 8 U/L (0-31); Albumin Level 2.9 g/dL (3.5-5.0); Alkaline Phosphatase 169 U/L (39-117); Anion Gap 20 (12-20); Aspartate Amino Transferase 20 U/L (5-31); Bilirubin Direct 0.2 mg/dL (0.0-0.5); Bilirubin Total 0.3 mg/dL (0.0-1.0); Blood Urea Nitrogen 25 mg/dL (9-16); Calcium 8.2 mg/dL (8.4-10.2); Carbon Dioxide 16 mmol/L (22-29); Chloride 107 mmol/L (96-108); Creatinine Clr Calc Pharmacy 80.3; Estimated Glomerular Filt Rate > 60; Glucose Random 321 mg/dL (60-115); Potassium 5.6 mmol/L (3.3-5.1); Sodium 137 mmol/L (135-145); Total Protein 6.6 g/dL (6.5-8.0)
--- NOTE | 2021-11-29 20:54 | PC.NURSE ---
Per do not give Metronidazole
[2021-11-29 21:08] LABS: Glucose, Whole Blood 314 mg/dL (60-115)
[2021-11-29] MEDS: Enoxaparin Sodium 40 MG/0.4 ML SYRINGE SUBCUT (21:40)
[2021-11-29] MEDS: Insulin Glargine,Hum.rec.anlog 100 UNIT/ML 10 ML VIAL 90 UNIT SUBCUT (21:40)
[2021-11-29] MEDS: Gabapentin 300 MG CAPSULE PO (21:40)
[2021-11-29] MEDS: Piperacillin Sodium/Tazobactam 3.375 GM in 0.9 % Sodium Chloride 50 ML IV (23:39)
[2021-11-30] VITALS (14 sets, daily range): BP systolic 123–186; BP diastolic 60–79; PULSE 76–96; RESP 14–18; TEMP 36–36.9; O2SAT 92–99
[2021-11-30] MEDS: Piperacillin Sodium/Tazobactam 3.375 GM in 0.9 % Sodium Chloride 50 ML IV ×2 (04:34→20:35)
[2021-11-30] MEDS: ondansetron HCL 4 MG/2 ML VIAL IVPUSH (04:54)
[2021-11-30] MEDS: Morphine Sulfate 4 MG/ML CARTRIDGE IVPUSH (04:54)
[2021-11-30 06:49] LABS: MANUAL DIFF FLAG NO
[2021-11-30 07:02] LABS: Basophils Absolute Auto 0.1 X10*3/uL (0.0-0.2); Basophils Percent Auto 0.7 % (0-2); Eosinophils Absolute Auto 0.5 X10*3/uL (0.0-0.4); Eosinophils Percent Auto 2.7 % (0-4); Imm Gran Abs Auto 0.19 X10*3/uL (0.00-0.03); Lymphocytes Absolute Auto 2.6 X10*3/uL (1.2-4.9); Lymphocytes Percent Auto 13.9 % (20-40); Mean Corpuscular HGB Conc 30.8 g/dl (31.0-35.0); Mean Corpuscular Hemoglobin 26.1 pg (27.0-33.0); Mean Corpuscular Volume 84.7 fL (80.0-98.0); Mean Platelet Volume 10.1 fL (9.4-12.3); Monocytes Absolute Auto 1.2 X10*3/uL (0.1-1.2); Monocytes Percent Auto 6.6 % (2-11); Neutrophils Absolute Auto 14.2 x10*3/uL (2.0-8.3); Neutrophils Percent Auto 75.1 % (45-73); Platelet Count 579 X10*3/uL (160-400); Red Blood Count 3.07 X10*6/uL (4.20-5.50); Red Cell Distribution Width 15.3 % (11.0-16.0); White Blood Count 18.9 X10*3/uL (4.8-10.8)
[2021-11-30 07:25] LABS: Anion Gap 13 (12-20); Blood Urea Nitrogen 20 mg/dL (9-16); Calcium 7.9 mg/dL (8.4-10.2); Carbon Dioxide 22 mmol/L (22-29); Chloride 106 mmol/L (96-108); Creatinine Clr Calc Pharmacy 84.2; Estimated Glomerular Filt Rate > 60; Glucose Random 330 mg/dL (60-115); Potassium 4.9 mmol/L (3.3-5.1); Sodium 136 mmol/L (135-145)
[2021-11-30] MEDS: Aspirin 81 MG TAB.CHEW PO (07:31)
[2021-11-30] MEDS: Gabapentin 300 MG CAPSULE PO ×3 (07:31→19:48)
[2021-11-30] MEDS: amLODIPine Besylate 10 MG TABLET PO (07:32)
[2021-11-30] MEDS: Insulin Lispro 100 UNIT/ML 3 ML VIAL 25 UNIT SUBCUT ×2 (07:32→17:29)
[2021-11-30] MEDS: Insulin Glargine,Hum.rec.anlog 100 UNIT/ML 10 ML VIAL 90 UNIT SUBCUT (07:32)
[2021-11-30] MEDS: vancomycin HCL 750 MG in 0.9 % Sodium Chloride 250 ML 265 MG IV ×2 (07:32→18:30)
[2021-11-30] MEDS: Cyanocobalamin (Vitamin B-12) 1,000 MCG TABLET 1000 MCG PO (07:32)
[2021-11-30] MEDS: Atorvastatin Calcium 80 MG TABLET PO (07:32)
[2021-11-30 07:47] LABS: C Reactive Protein 10.31 mg/dL (< or = 0.50)
--- NOTE | 2021-11-30 07:52 | P.CONGS_ITS ---
History of Present Illness Consult details Consult date: 11/30/21 Requesting physician: Brent Black Narrative: 51-year-old female patient presenting with a previous history of diabetes and osteomyelitis now presenting with complaints of pain and swelling in the right foot with necrosis of the 4th toe. She previously underwent amputation of the right 5th toe and has a persistently open incision at this location. She reports that the 4th toe began to drain foul-smelling discharge over the last several days. She also notes a painful spot in the instep of the right foot with an area of swelling and discharge. She is admitted to the hospitalist service for IV antibiotics and further management of the right foot wound. She previously underwent surgery in the left foot by Dr. Peguero for similar problem. [facility]. Review of Systems Review of Systems: Yes all other systems are reviewed and are negative Constitutional: Constitutional: Reports chills and Reports fever(s) Cardiovascular: Cardiovascular: Denies chest pain, Denies irregular heart rhythm and Denies dyspnea on exertion Respiratory: Respiratory: Denies cough, Denies excessive phlegm production and Denies dyspnea on exertion Gastrointestinal: Gastrointestinal: Denies abdominal pain, Denies change in stool character, Denies nausea and Denies vomiting Musculoskeletal: Musculoskeletal: Reports as per HPI Integumentary/Breasts: Skin/Breast: Reports as per HPI PMFSH Past Medical History Medical History Abscess Amputated toe of left foot Amputation of left foot BMI 39.0-39.9,adult Chronic heart failure with preserved ejection fraction (HFpEF) Chronic osteomyelitis of foot Diabetes Diabetic foot infection Hyperlipidemia Hypertension Insulin dependent diabetes mellitus Neuropathy Obesity Osteomyelitis PAD (peripheral artery disease) Type 2 diabetes mellitus with unspecified complications Vitamin B12 deficiency VRE (vancomycin resistant enterococcus) culture positive Family History Family History Mother Diabetes Hypertension Disk prolapse Father Diabetes Hypertension Sister No problems noted. Brother No problems noted. Daughter No problems noted. Son No problems noted. Surgical History Surgical History H/O spinal fusion History of section History of tubal ligation Social History Social History Household Members: Spouse Household Members Other:: Housing: Apartment Do you presently have visiting nurse or other home services: Yes Alcohol intake: never Patient Tobacco Use Status: Never used Tobacco Advance Directives: Yes Advance Directives on File: Yes Advance Directives Date on File: 02/15/21 service: No Current occupational status: unemployed Meds Allergies Allergy/AdvReac Type Severity Reaction Status Date / Time No Known Allergies Allergy Verified 10/30/21 14:37 [No Known Allergies*] Active Medications: Current Medications Acetaminophen (Acetaminophen 325 Mg Tablet) 650 mg PO Q6H PRN PRN Reason: Pain, Mild (Pain Scale 1-3) Amlodipine Besylate (Amlodipine Besylate 10 Mg Tablet) 10 mg PO DAILY [facility]; Protocol Last Admin: 11/30/21 07:32 Dose: 10 mg Aspirin (Aspirin 81 Mg Tab.Chew) 81 mg PO DAILY [facility] Last Admin: 11/30/21 07:31 Dose: 81 mg Atorvastatin Calcium (Atorvastatin Calcium 80 Mg Tablet) 80 mg PO DAILY [facility] Last Admin: 11/30/21 07:32 Dose: 80 mg Cyanocobalamin (Cyanocobalamin (Vitamin B-12) 1,000 Mcg Tablet) 1,000 mcg PO DAILY [facility] Last Admin: 11/30/21 07:32 Dose: 1,000 mcg Docusate Sodium (Docusate Sodium 100 Mg Capsule) 100 mg PO DAILY PRN PRN Reason: Constipation Gabapentin (Gabapentin 300 Mg Capsule) 300 mg PO TID [facility] Last Admin: 11/30/21 07:31 Dose: 300 mg Piperacillin Sod/Tazobactam (Sod 3.375 gm/ Sodium Chloride) 50 mls @ 100 mls/hr IV Q6H [facility] Last Infusion: 11/30/21 07:16 Dose: Infused Vancomycin HCl 750 mg/ Sodium (Chloride) 265 mls @ 265 mls/hr IV Q12H [facility] Last Admin: 11/30/21 07:32 Dose: 265 mls/hr Insulin Glargine (Insulin Glargine,Hum.Rec.Anlog 100 Unit/Ml 10 Ml Vial) 90 unit SUBCUT DAILY [facility] Last Admin: 11/30/21 07:32 Dose: 90 unit Insulin Human Lispro (Insulin Lispro 100 Unit/Ml 3 Ml Vial) 25 unit SUBCUT TIDAC [facility] Last Admin: 11/30/21 07:32 Dose: 25 unit Morphine Sulfate (Morphine Sulfate 4 Mg/Ml Cartridge) 4 mg IVPUSH Q4H PRN; Protocol PRN Reason: Pain, Severe (Pain Scale 7-10) Last Admin: 11/30/21 04:54 Dose: 4 mg Ondansetron HCl (Ondansetron Hcl 4 Mg/2 Ml Vial) 4 mg IVPUSH Q8H PRN PRN Reason: Nausea and Vomiting Last Admin: 11/30/21 04:54 Dose: 4 mg Pharmacy Consult (Consult Rx Vancomycin Dosing) 1 each MISCELLANE DAILY PRN PRN Reason: Consult order Pharmacy Consult (Consult Rx Vancomycin Dosing) 1 each MISCELLANE DAILY PRN PRN Reason: Consult order Sodium Chloride (0.9 % Sodium Chloride Flush 3 Ml Syringe) 3 ml IVFLUSH [facility] Last Admin: 11/30/21 07:41 Dose: Not Given Home Medications Medication Instructions Recorded Confirmed Last Taken Type amlodipine 10 mg tablet 1 tab PO DAILY 03/19/20 11/29/21 11/28/21 History gabapentin 300 mg capsule 1 cap PO TID 03/19/20 11/29/21 11/28/21 History insulin aspart U-100 100 unit/mL 25 unit subcut TIDAC 03/19/20 11/29/21 11/29/21 History subcutaneous solution (Novolog U-100 Insulin aspart) aspirin 81 mg chewable tablet 81 mg PO DAILY 06/17/21 11/29/21 11/28/21 History blood-glucose meter (FreeStyle #1 ea 07/03/21 11/28/21 History [place] Lite kit) insulin glargine 100 unit/mL 90 unit subcut DAILY 09/13/21 11/29/21 11/28/21 History subcutaneous solution (Lantus U-100 Insulin) atorvastatin 80 mg tablet 80 mg PO DAILY 11/29/21 11/29/21 11/28/21 History Physical Exam Vital Signs: Vital Signs: Last Vital Signs Temp 98.1 F 11/30/21 04:00 Pulse 86 11/30/21 04:00 Resp 16 11/30/21 04:00 BP 156/78 H 11/30/21 04:00 Pulse Ox 99 11/30/21 04:00 O2 Del Method 11/30/21 04:00 BMI result Body Mass Index 36.0 Const: General: cooperative, no acute distress and well developed Nutritional Appearance: well nourished Orientation/consciousness: patient oriented x3 HEENT: Head: Yes normocephalic and Yes atraumatic Ears: hearing grossly normal bilaterally Resp: Effort & Inspection: normal respiratory effort, no audible wheezes, no cough and no respiratory distress Auscultation: clear to auscultation bilaterally GI: Inspection: Yes normal to inspection Skin: General skin exam: erythema, Excoriation and fluctuance Neuro: General: patient oriented x3 Extrem: Other: Right foot wound as noted below Ankle/foot/toe images: 1. Amputation 5th toe with open wound 2. Necrotic 4th toe 3. Abscess right instep Results Labs Result diagrams: 11/30/21 06:30 11/30/21 06:30 Labs: Abnormal lab results 11/29/21 11/29/21 11/29/21 Range/Units 16:11 17:52 19:50 WBC 23.1 H (4.8-10.8) X10*3/uL RBC 3.58 L (4.20-5.50) X10*6/uL Hgb 9.3 L D (12.0-16.0) g/dl Hct 30.5 L (37.0-47.0) % MCH 26.0 L (27.0-33.0) pg MCHC 30.5 L (31.0-35.0) g/dl Plt Count 668 H D (160-400) X10*3/uL Immature Gran % (Auto) (0.0-0.4) % Neut % (Auto) (45-73) % Lymph % (Auto) (20-40) % Eos # (Auto) (0.0-0.4) X10*3/uL Abs Immat Gran (auto) (0.00-0.03) X10*3/uL Absolute Neuts (auto) (2.0-8.3) x10*3/uL Potassium 5.6 H D (3.3-5.1) mmol/L Carbon Dioxide 16 L (22-29) mmol/L BUN 25 H D (9-16) mg/dL POC Glucose 290 H (60-115) mg/dL Random Glucose 321 H (60-115) mg/dL Calcium 8.2 L (8.4-10.2) mg/dL Alkaline Phosphatase 169 H (39-117) U/L C-Reactive Protein (< or = 0.50) mg/dL Albumin 2.9 L (3.5-5.0) g/dL 11/29/21 11/30/21 11/30/21 Range/Units 21:04 06:30 06:30 WBC 18.9 H (4.8-10.8) X10*3/uL RBC 3.07 L (4.20-5.50) X10*6/uL Hgb 8.0 L (12.0-16.0) g/dl Hct 26.0 L (37.0-47.0) % MCH 26.1 L (27.0-33.0) pg MCHC 30.8 L (31.0-35.0) g/dl Plt Count 579 H (160-400) X10*3/uL Immature Gran % (Auto) 1.0 H (0.0-0.4) % Neut % (Auto) 75.1 H (45-73) % Lymph % (Auto) 13.9 L (20-40) % Eos # (Auto) 0.5 H (0.0-0.4) X10*3/uL Abs Immat Gran (auto) 0.19 H (0.00-0.03) X10*3/uL Absolute Neuts (auto) 14.2 H (2.0-8.3) x10*3/uL Potassium (3.3-5.1) mmol/L Carbon Dioxide (22-29) mmol/L BUN 20 H (9-16) mg/dL POC Glucose 314 H (60-115) mg/dL Random Glucose 330 H (60-115) mg/dL Calcium 7.9 L (8.4-10.2) mg/dL Alkaline Phosphatase (39-117) U/L C-Reactive Protein 10.31 H (< or = 0.50) mg/dL Albumin (3.5-5.0) g/dL Short CBC 11/29/21 11/30/21 Range/Units 17:52 06:30 WBC 23.1 H 18.9 H (4.8-10.8) X10*3/uL Hgb 9.3 L D 8.0 L (12.0-16.0) g/dl Hct 30.5 L 26.0 L (37.0-47.0) % Plt Count 668 H D 579 H (160-400) X10*3/uL BMP 11/29/21 11/30/21 19:50 06:30 Sodium 137 136 Potassium 5.6 H D 4.9 Chloride 107 106 Carbon Dioxide 16 L 22 BUN 25 H D 20 H Creatinine 0.87 0.83 Calcium 8.2 L 7.9 L Liver Function 11/29/21 11/29/21 Range/Units 17:52 19:50 Total Bilirubin Cancelled 0.3 Direct Bilirubin Cancelled 0.2 AST Cancelled 20 ALT Cancelled 8 Alkaline Phosphatase Cancelled 169 H Albumin Cancelled 2.9 L All other labs normal. Assessment and Plan (1) Diabetic infection of right foot: Status: Acute (2) Status post amputation of toe of right foot: Status: Acute (3) Diabetic foot ulcer with osteomyelitis: Status: Acute Plan 51-year-old female patient with history of diabetic foot ulcers and oste omyelitis now presenting with the necrotic 4th toe and evidence of sepsis. Patient has an elevated WBC. She has a prior history of amputation of the right 5th toe and now has a necrotic 4th toe which requires amputation and further debridement. In addition there is an abscess in the instep which will require drainage and irrigation. After discussion of the procedure, risks, and alternatives, patient consents to debridement of the right foot with amputation of the 4th toe incision and drainage of the right foot abscess. She will be added onto the operative schedule for today. Procedures Date of Service Date of Service: 11/30/21
--- NOTE | 2021-11-30 07:56 | HE.PHANOTE ---
reinaldo caba continue current dose, next trough due for 12/01 @0500. Suspected AUC 471, trough 14.7 with updated SCr. Thanks Benjie
[2021-11-30 08:22] LABS: Erythrocyte Sedimentation Rate 119 MM/HR (0-20)
--- NOTE | 2021-11-30 09:01 | MHC.CM.PN ---
CM ATTEMPTED TO SEE PT WHO IS CURRENTLY IN [facility] CM TO RETURN
[2021-11-30 09:58] LABS: Glucose, Whole Blood 153 mg/dL (60-115)
--- NOTE | 2021-11-30 10:57 | P.CONAN_ITS ---
HPI - Anesthesia Eval Consult details Narrative: 51 F for right foot I and D and toe amputation CHF, chronic osteomyelitis, HTN, neuropathy, PAD, DM PMFSH Active Problems Active Problems: All Active Problems (Updated 11/30/21 @ 07:02 by Vincent Elizabeth MD) Diabetic foot ulcer with osteomyelitis (Acute) Sepsis (Acute) AMY (acute kidney injury) (Acute) Current mild episode of major depressive disorder (Acute) Vitamin D deficiency (Acute) Vitamin B1 deficiency (Acute) BMI 38.0-38.9,adult (Acute) Diabetic infection of right foot (Acute) Leukocytosis (Acute) Elevated erythrocyte sedimentation rate (Acute) Status post amputation of toe of right foot (Acute) Diabetic infection of right foot (Acute) Diabetic foot infection (Acute) Vitamin B12 deficiency (Acute) Hyperlipidemia (Acute) BMI 39.0-39.9,adult (Acute) Obesity (Acute) Chronic heart failure with preserved ejection fraction (HFpEF) (Acute) VRE (vancomycin resistant enterococcus) culture positive (Acute) Osteomyelitis (Acute) Past Medical History Medical History Abscess Amputated toe of left foot Amputation of left foot BMI 39.0-39.9,adult Chronic heart failure with preserved ejection fraction (HFpEF) Chronic osteomyelitis of foot Diabetes Diabetic foot infection Hyperlipidemia Hypertension Insulin dependent diabetes mellitus Neuropathy Obesity Osteomyelitis PAD (peripheral artery disease) Type 2 diabetes mellitus with unspecified complications Vitamin B12 deficiency VRE (vancomycin resistant enterococcus) culture positive Family History Family History Mother Diabetes Hypertension Disk prolapse Father Diabetes Hypertension Sister No problems noted. Brother No problems noted. Daughter No problems noted. Son No problems noted. Family history of problems with anesthesia: No Surgical History Surgical History (Updated 11/30/21 @ 10:02 by Rafael Viera RN) H/O spinal fusion History of amputation of left foot History of section History of tubal ligation History of Problems with Anesthesia: No Social History Social History Household Members: Spouse Household Members Other:: Housing: Apartment Do you presently have visiting nurse or other home services: Yes Alcohol intake: never Patient Tobacco Use Status: Never used Tobacco Second Hand Smoke Exposure: No Use of substances other than those prescribed or required for medical reasons: No Are you DNR?: No Advance Directives: Yes Advance Directives Information Provided: No Advance Directives on File: Yes Advance Directives Date on File: 02/15/21 service: No Current occupational status: unemployed Meds Allergies Allergy/AdvReac Type Severity Reaction Status Date / Time No Known Allergies Allergy Verified 10/30/21 14:37 [No Known Allergies*] Active Medications: Current Medications Acetaminophen (Acetaminophen 325 Mg Tablet) 650 mg PO Q6H PRN PRN Reason: Pain, Mild (Pain Scale 1-3) Amlodipine Besylate (Amlodipine Besylate 10 Mg Tablet) 10 mg PO DAILY [facility]; Protocol Last Admin: 11/30/21 07:32 Dose: 10 mg Aspirin (Aspirin 81 Mg Tab.Chew) 81 mg PO DAILY [facility] Last Admin: 11/30/21 07:31 Dose: 81 mg Atorvastatin Calcium (Atorvastatin Calcium 80 Mg Tablet) 80 mg PO DAILY [facility] Last Admin: 11/30/21 07:32 Dose: 80 mg Cyanocobalamin (Cyanocobalamin (Vitamin B-12) 1,000 Mcg Tablet) 1,000 mcg PO DAILY [facility] Last Admin: 11/30/21 07:32 Dose: 1,000 mcg Docusate Sodium (Docusate Sodium 100 Mg Capsule) 100 mg PO DAILY PRN PRN Reason: Constipation Gabapentin (Gabapentin 300 Mg Capsule) 300 mg PO TID [facility] Last Admin: 11/30/21 07:31 Dose: 300 mg Piperacillin Sod/Tazobactam (Sod 3.375 gm/ Sodium Chloride) 50 mls @ 100 mls/hr IV Q6H [facility] Last Infusion: 11/30/21 07:16 Dose: Infused Vancomycin HCl 750 mg/ Sodium (Chloride) 265 mls @ 265 mls/hr IV Q12H [facility] Last Infusion: 11/30/21 08:36 Dose: Infused Insulin Glargine (Insulin Glargine,Hum.Rec.Anlog 100 Unit/Ml 10 Ml Vial) 90 unit SUBCUT DAILY [facility] Last Admin: 11/30/21 07:32 Dose: 90 unit Insulin Human Lispro (Insulin Lispro 100 Unit/Ml 3 Ml Vial) 25 unit SUBCUT TIDAC [facility] Last Admin: 11/30/21 07:32 Dose: 25 unit Morphine Sulfate (Morphine Sulfate 4 Mg/Ml Cartridge) 4 mg IVPUSH Q4H PRN; Protocol PRN Reason: Pain, Severe (Pain Scale 7-10) Last Admin: 11/30/21 04:54 Dose: 4 mg Ondansetron HCl (Ondansetron Hcl 4 Mg/2 Ml Vial) 4 mg IVPUSH Q8H PRN PRN Reason: Nausea and Vomiting Last Admin: 11/30/21 04:54 Dose: 4 mg Pharmacy Consult (Consult Rx Vancomycin Dosing) 1 each MISCELLANE DAILY PRN PRN Reason: Consult order Pharmacy Consult (Consult Rx Vancomycin Dosing) 1 each MISCELLANE DAILY PRN PRN Reason: Consult order Sodium Chloride (0.9 % Sodium Chloride Flush 3 Ml Syringe) 3 ml IVFLUSH QSHIFT [facility] Last Admin: 11/30/21 07:41 Dose: Not Given Home Medications Medication Instructions Recorded Confirmed Last Taken Type amlodipine 10 mg tablet 1 tab PO DAILY 03/19/20 11/29/21 11/28/21 History gabapentin 300 mg capsule 1 cap PO TID 03/19/20 11/29/21 11/28/21 History insulin aspart U-100 100 unit/mL 25 unit subcut TIDAC 03/19/20 11/29/21 11/29/21 History subcutaneous solution (Novolog U-100 Insulin aspart) aspirin 81 mg chewable tablet 81 mg PO DAILY 06/17/21 11/29/21 11/28/21 History blood-glucose meter (FreeStyle #1 ea 07/03/21 11/28/21 History [place] Lite kit) insulin glargine 100 unit/mL 90 unit subcut DAILY 09/13/21 11/29/21 11/28/21 History subcutaneous solution (Lantus U-100 Insulin) atorvastatin 80 mg tablet 80 mg PO DAILY 11/29/21 11/29/21 11/28/21 History Exam Exam Date and Time: November 30, 2021 1057 Height,Weight and Vital Signs: Height 5 ft 2 in Weight 89.358 kg Last Vital Signs Temp 97.6 F 11/30/21 09:58 Pulse 84 11/30/21 09:58 Resp 16 11/30/21 09:58 BP 123/63 11/30/21 09:58 Pulse Ox 96 11/30/21 09:58 O2 Del Method 11/30/21 09:58 Pertinent Lab Results Pertinent Lab Results: Laboratory Tests 11/29/21 11/29/21 11/29/21 14:56 16:11 17:52 WBC 23.1 H RBC 3.58 L Hgb 9.3 L D Hct 30.5 L MCV 85.2 MCH 26.0 L MCHC 30.5 L RDW 15.2 Plt Count 668 H D MPV 9.9 Immature Gran % (Auto) Neut % (Auto) Lymph % (Auto) [place] % (Auto) Eos % (Auto) Baso % (Auto) Lymph # (Auto) [place] # (Auto) Eos # (Auto) Baso # (Auto) Abs Immat Gran (auto) Absolute Neuts (auto) Absolute Nucleated RBC 0.000 Nucleated RBC % (auto) 0.0 ESR Sodium Potassium Chloride Carbon Dioxide Anion Gap BUN Creatinine Estim Creat Clear Calc Estimated GFR POC Glucose 290 H Random Glucose Lactic Acid Calcium Total Bilirubin Direct Bilirubin AST ALT Alkaline Phosphatase C-Reactive Protein Total Protein Albumin COVID-19 ([facility]) Negative COVID-19 [employer] See Note 11/29/21 11/29/21 11/29/21 17:52 17:53 19:50 WBC RBC Hgb Hct MCV MCH MCHC RDW Plt Count MPV Immature Gran % (Auto) Neut % (Auto) Lymph % (Auto) [place] % (Auto) Eos % (Auto) Baso % (Auto) Lymph # (Auto) [place] # (Auto) Eos # (Auto) Baso # (Auto) Abs Immat Gran (auto) Absolute Neuts (auto) Absolute Nucleated RBC Nucleated RBC % (auto) ESR Sodium 137 Potassium 5.6 H D Chloride 107 Carbon Dioxide 16 L Anion Gap 20 BUN 25 H D Creatinine 0.87 Estim Creat Clear Calc 80.3 Estimated GFR > 60 POC Glucose Random Glucose 321 H Lactic Acid 1.3 Calcium 8.2 L Total Bilirubin Cancelled 0.3 Direct Bilirubin Cancelled 0.2 AST Cancelled 20 ALT Cancelled 8 Alkaline Phosphatase Cancelled 169 H C-Reactive Protein Total Protein Cancelled 6.6 Albumin Cancelled 2.9 L COVID-19 ([facility]) COVID-[employer] 11/29/21 11/30/21 11/30/21 21:04 06:30 06:30 WBC 18.9 H RBC 3.07 L Hgb 8.0 L Hct 26.0 L MCV 84.7 MCH 26.1 L MCHC 30.8 L RDW 15.3 Plt Count 579 H MPV 10.1 Immature Gran % (Auto) 1.0 H Neut % (Auto) 75.1 H Lymph % (Auto) 13.9 L [place] % (Auto) 6.6 Eos % (Auto) 2.7 Baso % (Auto) 0.7 Lymph # (Auto) 2.6 [place] # (Auto) 1.2 Eos # (Auto) 0.5 H Baso # (Auto) 0.1 Abs Immat Gran (auto) 0.19 H Absolute Neuts (auto) 14.2 H Absolute Nucleated RBC 0.000 Nucleated RBC % (auto) 0.0 ESR Sodium 136 Potassium 4.9 Chloride 106 Carbon Dioxide 22 Anion Gap 13 BUN 20 H Creatinine 0.83 Estim Creat Clear Calc 84.2 Estimated GFR > 60 POC Glucose 314 H Random Glucose 330 H Lactic Acid Calcium 7.9 L Total Bilirubin Direct Bilirubin AST ALT Alkaline Phosphatase C-Reactive Protein 10.31 H Total Protein Albumin COVID-19 ([facility]) COVID-19 [employer] 11/30/21 11/30/21 06:30 09:55 WBC RBC Hgb Hct MCV MCH MCHC RDW Plt Count MPV Immature Gran % (Auto) Neut % (Auto) Lymph % (Auto) [place] % (Auto) Eos % (Auto) Baso % (Auto) Lymph # (Auto) [place] # (Auto) Eos # (Auto) Baso # (Auto) Abs Immat Gran (auto) Absolute Neuts (auto) Absolute Nucleated RBC Nucleated RBC % (auto) ESR 119 H Sodium Potassium Chloride Carbon Dioxide Anion Gap BUN Creatinine Estim Creat Clear Calc Estimated GFR POC Glucose 153 H Random Glucose Lactic Acid Calcium Total Bilirubin Direct Bilirubin AST ALT Alkaline Phosphatase C-Reactive Protein Total Protein Albumin COVID-19 ([facility]) COVID-19 Clin Com Airway Mallampati Class: IV Neck ROM: Full (thick neck ) Loose/Missing/Broken Teeth: Yes (Poor dentition globally , multiple chipped teeth ) Heart: S1,S2 Lungs: b/l breath sounds Assessment and Plan Assessment Anesthesia Assessment: Anesthesia Plan Discussed and Chart Reviewed Final Anesthetic Review Family History of Problems with Anesthesia: No History of Problems with Anesthesia: No NPO: Yes ASA Class: III and Emergency Final Preanesthetic Review: Meds/Allgs Chart Reviewed, Consent Obtained/Reviewed and Anes Risks/Benef Reviewed Patient Risk: Intermediate Procedure Risk: Intermediate Anesthetic Plan Anesthetic Plan: GA Disposition: Inp. Admit - Standard Bed
--- NOTE | 2021-11-30 12:06 | W.PM.OPN ---
Operative Note Operative Note Date of Service: 11/30/21 Narrative: Preoperative diagnosis: Diabetic foot ulcer, gangrene right 4th toe Postoperative diagnosis: Same Procedure: Amputation of right 4th toe, debridement of right foot, incision and drainage of right foot abscess Surgeon: Karthikeyan Wang MD [employer] Equipment Operator: No physician Anesthesia: General LMA Indications for procedure: 51-year-old female patient presenting with a foul smelling right foot with necrotic 4th toe. Patient has a prior history of peripheral vascular disease, diabetes mellitus and previously underwent a transmetatarsal amputation of the left foot. She has also undergone previous amputation of the 5th toe and presents now with a nonhealing wound as well as necrosis of the 4th toe. Operative findings: Wounds as noted above Specimen: Right foot, 4th toe amputation as well as debridement of 5th metatarsal Estimated blood loss: 10 mL Complications: None Procedure details: Patient was brought to the OR placed in a supine position. After administering general anesthesia the patient's right foot was prepped with Betadine and draped in a sterile fashion. A surgical time-out was called the consent confirmed. Patient received preoperative antibiotics and Venodyne boots were in place. Patient had a large open wound in the lateral right foot at the site of the previous 5th toe amputation. The 4th toe was necrotic. A 15 blade was used to debride the surrounding skin involving the 4th and 5th toes. Dissection was continued down around the 4th toe up to the distal metatarsal head. Electrocautery was used to maintain hemostasis. Dissection was continued to the mid metatarsal of the 4th and 5th toes. Bone cutter was used to divide the bone below the skin level. [place] was used to further trim the bone edges and smooth out the edge. Hemostasis was assured again using electrocautery. An abscess was noted in the medial instep. This was incised with scalpel and debrided using a curette. This was irrigated with saline solution and then packed with half-inch iodoform gauze. In a similar fashion the lateral foot wound was packed with 1/2 inch iodoform gauze and covered with dry sterile dressings. The patient tolerated the procedure well. Sponge, instrument, and needle counts reported as correct. The patient was transferred to PACU in stable condition.
--- NOTE | 2021-11-30 13:21 | HO.PM.IMPN ---
Subjective Subjective Date of Service: 11/30/21 Interval History: returned from OR for amputation of right 4th toe, debridement of right foot, incision and drainage of right foot abscess pain controlled Physical Exam Vital Signs: Vital Signs: Last Vital Signs Temp 97.8 F 11/30/21 12:47 Pulse 80 11/30/21 13:02 Resp 14 11/30/21 13:02 BP 139/70 11/30/21 13:02 Pulse Ox 98 11/30/21 13:02 O2 Del Method 11/30/21 13:02 O2 Flow Rate 2 11/30/21 13:02 BMI result Body Mass Index 36.0 Gen: in no acute distress HEENT: sclera anicteric, moist mucus membranes Neck: supple Lungs: clear to auscultation bilaterally Heart: regular rate and rhythm, no murmurs Abd: soft, non-tender, non-distended Ext: L foot s/p TMTA, R foot in dry surgical dressing Skin: warm/well-perfused Neuro: alert and oriented x3, no focal findings Psych: appropriate affect Objective Data Active Medications Acetaminophen (Acetaminophen 325 Mg Tablet) 650 mg PO Q6H PRN PRN Reason: Pain, Mild (Pain Scale 1-3) Acetaminophen (Acetaminophen 325 Mg Tablet) 650 mg PO ONCE PRN PRN Reason: Pain, Mild (Pain Scale 1-3) Amlodipine Besylate (Amlodipine Besylate 10 Mg Tablet) 10 mg PO DAILY [facility]; Protocol Last Admin: 11/30/21 07:32 Dose: 10 mg Documented By: BRYANNA Aspirin (Aspirin 81 Mg Tab.Chew) 81 mg PO DAILY [facility] Last Admin: 11/30/21 07:31 Dose: 81 mg Documented By: BRYANNA Atorvastatin Calcium (Atorvastatin Calcium 80 Mg Tablet) 80 mg PO DAILY [facility] Last Admin: 11/30/21 07:32 Dose: 80 mg Documented By: BRYANNA Cyanocobalamin (Cyanocobalamin (Vitamin B-12) 1,000 Mcg Tablet) 1,000 mcg PO DAILY [facility] Last Admin: 11/30/21 07:32 Dose: 1,000 mcg Documented By: BRYANNA Docusate Sodium (Docusate Sodium 100 Mg Capsule) 100 mg PO DAILY PRN PRN Reason: Constipation Fentanyl (Fentanyl Citrate/Pf 100 Mcg/2 Ml Vial) 25 mcg IVPUSH Q5M PRN; Protocol PRN Reason: Pain, Moderate (Pain Scale 4-6 Gabapentin (Gabapentin 300 Mg Capsule) 300 mg PO TID [facility] Last Admin: 11/30/21 07:31 Dose: 300 mg Documented By: BRYANNA Piperacillin Sod/Tazobactam (Sod 3.375 gm/ Sodium Chloride) 50 mls @ 100 mls/hr IV Q6H [facility] Last Infusion: 11/30/21 07:16 Dose: 0 mls/hr Documented By: BRYANNA Vancomycin HCl 750 mg/ Sodium (Chloride) 265 mls @ 265 mls/hr IV Q12H [facility] Last Infusion: 11/30/21 08:36 Dose: 0 mls/hr Documented By: BRYANNA Insulin Glargine (Insulin Glargine,Hum.Rec.Anlog 100 Unit/Ml 10 Ml Vial) 90 unit SUBCUT DAILY [facility] Last Admin: 11/30/21 07:32 Dose: 90 unit Documented By: BRYANNA Insulin Human Lispro (Insulin Lispro 100 Unit/Ml 3 Ml Vial) 25 unit SUBCUT TIDAC [facility] Last Admin: 11/30/21 07:32 Dose: 25 unit Documented By: BRYANNA Morphine Sulfate (Morphine Sulfate 4 Mg/Ml Cartridge) 4 mg IVPUSH Q4H PRN; Protocol PRN Reason: Pain, Severe (Pain Scale 7-10) Last Admin: 11/30/21 04:54 Dose: 4 mg Documented By: SOLANGE Ondansetron HCl (Ondansetron Hcl 4 Mg/2 Ml Vial) 4 mg IVPUSH Q8H PRN PRN Reason: Nausea and Vomiting Last Admin: 11/30/21 04:54 Dose: 4 mg Documented By: SOLANGE Pharmacy Consult (Consult Rx Vancomycin Dosing) 1 each MISCELLANE DAILY PRN PRN Reason: Consult order Pharmacy Consult (Consult Rx Vancomycin Dosing) 1 each MISCELLANE DAILY PRN PRN Reason: Consult order Sodium Chloride (0.9 % Sodium Chloride Flush 3 Ml Syringe) 3 ml IVFLUSH QSHIFT [facility] Last Admin: 11/30/21 07:41 Dose: Not Given Documented By: BRYANNA Non-Admin Reason: Elevated Blood Pressure Labs CBC & Chem 7: 11/30/21 06:30 11/30/21 06:30 Labs: Laboratory Results - last 24 hr 11/29/21 11/29/21 11/29/21 14:56 16:11 17:52 MCV 85.2 MCH 26.0 L MCHC 30.5 L RDW 15.2 Plt Count 668 H D MPV 9.9 Immature Gran % (Auto) Neut % (Auto) Lymph % (Auto) Carbon % (Auto) Eos % (Auto) Baso % (Auto) Lymph # (Auto) Carbon # (Auto) Eos # (Auto) Baso # (Auto) Abs Immat Gran (auto) Absolute Neuts (auto) Absolute Nucleated RBC 0.000 Nucleated RBC % (auto) 0.0 ESR Anion Gap Estim Creat Clear Calc Estimated GFR POC Glucose 290 H Random Glucose Lactic Acid Calcium Total Bilirubin Direct Bilirubin AST ALT Alkaline Phosphatase C-Reactive Protein Total Protein Albumin COVID-19 ([facility]) Negative COVID-19 Clin Com See Note 11/29/21 11/29/21 11/29/21 17:52 17:53 19:50 MCV MCH MCHC RDW Plt Count MPV Immature Gran % (Auto) Neut % (Auto) Lymph % (Auto) Carbon % (Auto) Eos % (Auto) Baso % (Auto) Lymph # (Auto) Carbon # (Auto) Eos # (Auto) Baso # (Auto) Abs Immat Gran (auto) Absolute Neuts (auto) Absolute Nucleated RBC Nucleated RBC % (auto) ESR Anion Gap 20 Estim Creat Clear Calc 80.3 Estimated GFR > 60 POC Glucose Random Glucose 321 H Lactic Acid 1.3 Calcium 8.2 L Total Bilirubin Cancelled 0.3 Direct Bilirubin Cancelled 0.2 AST Cancelled 20 ALT Cancelled 8 Alkaline Phosphatase Cancelled 169 H C-Reactive Protein Total Protein Cancelled 6.6 Albumin Cancelled 2.9 L COVID-19 ([facility]) COVID-19 Clin Com 11/29/21 11/30/21 11/30/21 21:04 06:30 06:30 MCV 84.7 MCH 26.1 L MCHC 30.8 L RDW 15.3 Plt Count 579 H MPV 10.1 Immature Gran % (Auto) 1.0 H Neut % (Auto) 75.1 H Lymph % (Auto) 13.9 L Carbon % (Auto) 6.6 Eos % (Auto) 2.7 Baso % (Auto) 0.7 Lymph # (Auto) 2.6 Carbon # (Auto) 1.2 Eos # (Auto) 0.5 H Baso # (Auto) 0.1 Abs Immat Gran (auto) 0.19 H Absolute Neuts (auto) 14.2 H Absolute Nucleated RBC 0.000 Nucleated RBC % (auto) 0.0 ESR Anion Gap 13 Estim Creat Clear Calc 84.2 Estimated GFR > 60 POC Glucose 314 H Random Glucose 330 H Lactic Acid Calcium 7.9 L Total Bilirubin Direct Bilirubin AST ALT Alkaline Phosphatase C-Reactive Protein 10.31 H Total Protein Albumin COVID-19 ([facility]) COVID-19 Clin Com 11/30/21 11/30/21 06:30 09:55 MCV MCH MCHC RDW Plt Count MPV Immature Gran % (Auto) Neut % (Auto) Lymph % (Auto) Carbon % (Auto) Eos % (Auto) Baso % (Auto) Lymph # (Auto) Carbon # (Auto) Eos # (Auto) Baso # (Auto) Abs Immat Gran (auto) Absolute Neuts (auto) Absolute Nucleated RBC Nucleated RBC % (auto) ESR 119 H Anion Gap Estim Creat Clear Calc Estimated GFR POC Glucose 153 H Random Glucose Lactic Acid Calcium Total Bilirubin Direct Bilirubin AST ALT Alkaline Phosphatase C-Reactive Protein Total Protein Albumin COVID-19 ([facility]) COVID-19 Clin Com Assessment and Plan (1) Diabetic foot ulcer with osteomyelitis: Status: Acute Plan ?hospital d#2 51yo F with DM2, hx osteomyelitis, s/p multiple toe amputations and TMTA, PAD admitted with gangrene of R foot # R foot osteomyelitis/gangrene - s/p amputation of right 4th toe, debridement of right foot, incision and drainage of right foot abscess today - continue vanco + pip-jory d#2, ID consult pending # DM2 - basal/bolus insulin # PAD - ASA/statin # HTN - amlodipine # neuropathy - gabapentin # VTE ppx: SCDs In my clinical judgment, the patient requires continued hospitalization for the following reasons: IV ABX, postop care Quality Stroke Does the patient have a stroke diagnosis?: No VTE Prior VTE?: No VTE Risk Level:: Medical - moderate - high VTE Device Contraindication: Treatment Not Indicated VTE Drug Contraindication: N/A - Med Ordered
[2021-11-30 13:49] LABS: Glucose, Whole Blood 105 mg/dL (60-115)
[2021-11-30 16:17] LABS: Glucose, Whole Blood 135 mg/dL (60-115)
[2021-11-30] MEDS: 0.9 % Sodium Chloride Flush 3 ML SYRINGE IVFLUSH ×2 (17:29→19:51)
[2021-11-30] MEDS: oxyCODONE HCl Immed Release 5 MG TABLET PO (17:29)
[2021-11-30] MEDS: Acetaminophen 325 MG TABLET 650 MG PO (17:29)
[2021-11-30 20:00] LABS: Glucose, Whole Blood 189 mg/dL (60-115)
[2021-12-01] VITALS (8 sets, daily range): BP systolic 125–158; BP diastolic 60–70; PULSE 79–97; RESP 16–18; TEMP 36.1–37.3; O2SAT 92–99
[2021-12-01] MEDS: Piperacillin Sodium/Tazobactam 3.375 GM in 0.9 % Sodium Chloride 50 ML IV ×4 (02:28→20:33)
[2021-12-01] MEDS: oxyCODONE HCl Immed Release 5 MG TABLET PO ×2 (06:25→12:55)
[2021-12-01] MEDS: vancomycin HCL 750 MG in 0.9 % Sodium Chloride 250 ML 265 MG IV (06:25)
[2021-12-01 06:35] LABS: Hematocrit 26.9 % (37.0-47.0); Hemoglobin 8.3 g/dl (12.0-16.0); Mean Corpuscular HGB Conc 30.9 g/dl (31.0-35.0); Mean Corpuscular Hemoglobin 26.7 pg (27.0-33.0); Mean Corpuscular Volume 86.5 fL (80.0-98.0); Mean Platelet Volume 10.1 fL (9.4-12.3); Platelet Count 631 X10*3/uL (160-400); Red Blood Count 3.11 X10*6/uL (4.20-5.50); Red Cell Distribution Width 15.9 % (11.0-16.0); White Blood Count 22.1 X10*3/uL (4.8-10.8)
[2021-12-01 07:00] LABS: Anion Gap 16 (12-20); Blood Urea Nitrogen 12 mg/dL (9-16); Calcium 8.4 mg/dL (8.4-10.2); Carbon Dioxide 23 mmol/L (22-29); Chloride 105 mmol/L (96-108); Creatinine Clr Calc Pharmacy 81.3; Estimated Glomerular Filt Rate > 60; Glucose Random 114 mg/dL (60-115); Sodium 139 mmol/L (135-145)
[2021-12-01 07:39] LABS: Glucose, Whole Blood 140 mg/dL (60-115)
[2021-12-01] MEDS: Insulin Glargine,Hum.rec.anlog 100 UNIT/ML 10 ML VIAL 90 UNIT SUBCUT (08:13)
[2021-12-01] MEDS: Cyanocobalamin (Vitamin B-12) 1,000 MCG TABLET 1000 MCG PO (08:14)
[2021-12-01] MEDS: amLODIPine Besylate 10 MG TABLET PO (08:14)
[2021-12-01] MEDS: Gabapentin 300 MG CAPSULE PO ×3 (08:14→20:33)
[2021-12-01] MEDS: Insulin Lispro 100 UNIT/ML 3 ML VIAL 25 UNIT SUBCUT ×2 (08:14→17:09)
[2021-12-01] MEDS: Atorvastatin Calcium 80 MG TABLET PO (08:14)
[2021-12-01] MEDS: Aspirin 81 MG TAB.CHEW PO (08:14)
[2021-12-01] MEDS: 0.9 % Sodium Chloride Flush 3 ML SYRINGE IVFLUSH ×2 (08:15→20:33)
--- NOTE | 2021-12-01 09:57 | MHC.CM.PN ---
Addendum entered by Lien Bethea 12/01/21 14:43: PCP: Farhana Floyd [address] [place] [address] Dr. Tyesha, LOLA [id number] Addendum entered by Lien Bethea 12/01/21 12:44: PT Recommendations STR vs Home with Services as patient informed PT she did not want to go to STR. CM met with patient, she reports she Doesn't want to go to STR. Cm asked about care at home, going up 20 steps into apartment, and caring for her . Patient reported she no longer provides care for her (family member assists). Her sinai, who lives above her, and her mother who will be here from [place] tomorrow 12/02/21 will be assisting her with care and will assist her up the stairs. She reports she has a traveling wheelchair and a wheelchair for herself at home (friend gave it to her). She also has walker and cane. She reports she will be able to assist her family provide care for her. Per [facility], patient is Not currently active with them. CM has made request for [facility] to provide care for patient. Addendum entered by Lien Bethea 12/01/21 10:01: HCP on file Original Note: No IMM required Kazakh speaking patient Patient reports she lives with her spouse, is independent at home and community, use walker sometimes a wheelchair, has DM equipment. Reports services through the [facility]. Covid vax'd 1 J&J and booster Pfizer. PCP from [address] [place] [address] Drive unable to provide name. Her niece-Natalee will transport. D/C plan: Home resume [facility] service
--- NOTE | 2021-12-01 11:08 | P.PNGS_ITS ---
Subjective Subjective Date of Service: 12/01/21 Patient reports: no new complaints and still having pain Interval history: The patient is seen in coverage. She reports ongoing pain, worse at night. She otherwise denies new issues of headache, chest pain, difficulty breathing or shortness of breath. Physical Exam Vital Signs: Vital Signs: Last Vital Signs Temp 98.6 F 12/01/21 06:58 Pulse 87 12/01/21 06:58 Resp 16 12/01/21 06:58 BP 134/60 12/01/21 06:58 Pulse Ox 96 12/01/21 06:58 O2 Del Method 12/01/21 06:58 O2 Flow Rate 2 11/30/21 13:02 BMI result Body Mass Index 36.0 Dressings have some blood staining bilaterally. Objective Data Active Medications Acetaminophen (Acetaminophen 325 Mg Tablet) 650 mg PO Q6H PRN PRN Reason: Pain, Mild (Pain Scale 1-3) Last Admin: 11/30/21 17:29 Dose: 650 mg Documented By: LUIZ Acetaminophen (Acetaminophen 325 Mg Tablet) 650 mg PO ONCE PRN PRN Reason: Pain, Mild (Pain Scale 1-3) Amlodipine Besylate (Amlodipine Besylate 10 Mg Tablet) 10 mg PO DAILY [facility]; Protocol Last Admin: 12/01/21 08:14 Dose: 10 mg Documented By: LUIZ Aspirin (Aspirin 81 Mg Tab.Chew) 81 mg PO DAILY [facility] Last Admin: 12/01/21 08:14 Dose: 81 mg Documented By: LUIZ Atorvastatin Calcium (Atorvastatin Calcium 80 Mg Tablet) 80 mg PO DAILY [facility] Last Admin: 12/01/21 08:14 Dose: 80 mg Documented By: LUIZ Cyanocobalamin (Cyanocobalamin (Vitamin B-12) 1,000 Mcg Tablet) 1,000 mcg PO DAILY [facility] Last Admin: 12/01/21 08:14 Dose: 1,000 mcg Documented By: LUIZ Docusate Sodium (Docusate Sodium 100 Mg Capsule) 100 mg PO DAILY PRN PRN Reason: Constipation Fentanyl (Fentanyl Citrate/Pf 100 Mcg/2 Ml Vial) 25 mcg IVPUSH Q5M PRN; Protocol PRN Reason: Pain, Moderate (Pain Scale 4-6 Gabapentin (Gabapentin 300 Mg Capsule) 300 mg PO TID [facility] Last Admin: 12/01/21 08:14 Dose: 300 mg Documented By: LUIZ Vancomycin HCl 750 mg/ Sodium (Chloride) 265 mls @ 265 mls/hr IV Q12H [facility] Last Infusion: 12/01/21 08:26 Dose: 0 mls/hr Documented By: LUIZ Piperacillin Sod/Tazobactam (Sod 3.375 gm/ Sodium Chloride) 50 mls @ 100 mls/hr IV Q6H [facility] Last Infusion: 12/01/21 08:51 Dose: 0 mls/hr Documented By: LUIZ Insulin Glargine (Insulin Glargine,Hum.Rec.Anlog 100 Unit/Ml 10 Ml Vial) 90 unit SUBCUT DAILY [facility] Last Admin: 12/01/21 08:13 Dose: 90 unit Documented By: LUIZ Insulin Human Lispro (Insulin Lispro 100 Unit/Ml 3 Ml Vial) 25 unit SUBCUT TIDAC [facility] Last Admin: 12/01/21 08:14 Dose: 25 unit Documented By: LUIZ Morphine Sulfate (Morphine Sulfate 4 Mg/Ml Cartridge) 4 mg IVPUSH Q3H PRN; P rotocol PRN Reason: Pain, Severe (Pain Scale 7-10) Ondansetron HCl (Ondansetron Hcl 4 Mg/2 Ml Vial) 4 mg IVPUSH Q8H PRN PRN Reason: Nausea and Vomiting Last Admin: 11/30/21 04:54 Dose: 4 mg Documented By: SOLANGE Oxycodone HCl (Oxycodone Hcl Immed Release 5 Mg Tablet) 5 mg PO Q6H PRN PRN Reason: Pain, Severe (Pain Scale 7-10) Last Admin: 12/01/21 06:25 Dose: 5 mg Documented By: FROY Pharmacy Consult (Consult Rx Vancomycin Dosing) 1 each MISCELLANE DAILY PRN PRN Reason: Consult order Pharmacy Consult (Consult Rx Vancomycin Dosing) 1 each MISCELLANE DAILY PRN PRN Reason: Consult order Sodium Chloride (0.9 % Sodium Chloride Flush 3 Ml Syringe) 3 ml IVFLUSH QSHIFT [facility] Last Admin: 12/01/21 08:15 Dose: 3 ml Documented By: LUIZ Labs CBC & Chem 7: 12/01/21 05:35 12/01/21 05:35 Labs: Laboratory Results - last 24 hr 11/30/21 11/30/2122 13:45 15:36 19:30 MCV MCH MCHC RDW Plt Count MPV Absolute Nucleated RBC Nucleated RBC % (auto) Anion Gap Estim Creat Clear Calc Estimated GFR POC Glucose 105 135 H 189 H Random Glucose Calcium 12/01/21 12/01/21 12/01/21 05:35 05:35 07:03 MCV 86.5 MCH 26.7 L MCHC 30.9 L RDW 15.9 Plt Count 631 H MPV 10.1 Absolute Nucleated RBC 0.000 Nucleated RBC % (auto) 0.0 Anion Gap 16 Estim Creat Clear Calc 81.3 Estimated GFR > 60 POC Glucose 140 H Random Glucose 114 Calcium 8.4 D Microbiology Microbiology Results: Microbiology 11/29/21 17:52 Blood Culture - Preliminary Blood - Venous No growth after 24 hours. 11/29/21 17:53 Blood Culture - Preliminary Blood - Venous No growth after 24 hours. Procedures Date of Service Date of Service: 12/01/21 Progress Note: A&P Assessment and plan (1) Diabetic foot ulcer with osteomyelitis: Status: Acute (2) Sepsis: Status: Acute (3) AMY (acute kidney injury): Status: Acute (4) Diabetic infection of right foot: Status: Acute Plan See orders regarding ongoing dressing changes. Continue antibiotics. Continue to monitor/treat pain Will reassess in the morning. Time Spent With Patient Time: Total time spent is greater than 50% in coordination of care (as documented) at patient's floor/unit and/or counseling patient: Quality Stroke Does the patient have a stroke diagnosis?: No VTE Prior VTE?: No VTE Risk Level:: Medical - moderate - high VTE Device Contraindication: Treatment Not Indicated VTE Drug Contraindication: N/A - Med Ordered
[2021-12-01 11:21] LABS: Glucose, Whole Blood 56 mg/dL (60-115)
--- NOTE | 2021-12-01 11:26 | P.PNIM_ITS ---
Subjective Subjective Date of Service: 12/01/21 Interval History: This history was taken in Polish from the patient. postop pain controlled no fever BG 56 Review of Systems Review of Systems: Yes all other systems are reviewed and are negative Physical Exam Vital Signs: Vital Signs: Last Vital Signs Temp 97.5 F 12/01/21 11:12 Pulse 79 12/01/21 11:12 Resp 18 12/01/21 11:12 BP 125/60 12/01/21 11:12 Pulse Ox 97 12/01/21 11:12 O2 Del Method 12/01/21 11:12 O2 Flow Rate 2 11/30/21 13:02 BMI result Body Mass Index 36.0 Gen: in no acute distress HEENT: sclera anicteric, moist mucus membranes Neck: supple Lungs: clear to auscultation bilaterally Heart: regular rate and rhythm, no murmurs Abd: soft, non-tender, non-distended Ext: L foot s/p TMTA, R foot in dressing with dried blood Skin: warm/well-perfused Neuro: alert and oriented x3, no focal findings Psych: appropriate affect Objective Data Active Medications Acetaminophen (Acetaminophen 325 Mg Tablet) 650 mg PO Q6H PRN PRN Reason: Pain, Mild (Pain Scale 1-3) Last Admin: 11/30/21 17:29 Dose: 650 mg Documented By: LUIZ Acetaminophen (Acetaminophen 325 Mg Tablet) 650 mg PO ONCE PRN PRN Reason: Pain, Mild (Pain Scale 1-3) Amlodipine Besylate (Amlodipine Besylate 10 Mg Tablet) 10 mg PO DAILY [facility]; Protocol Last Admin: 12/01/21 08:14 Dose: 10 mg Documented By: LUIZ Aspirin (Aspirin 81 Mg Tab.Chew) 81 mg PO DAILY [facility] Last Admin: 12/01/21 08:14 Dose: 81 mg Documented By: LUIZ Atorvastatin Calcium (Atorvastatin Calcium 80 Mg Tablet) 80 mg PO DAILY [facility] Last Admin: 12/01/21 08:14 Dose: 80 mg Documented By: LUIZ Cyanocobalamin (Cyanocobalamin (Vitamin B-12) 1,000 Mcg Tablet) 1,000 mcg PO DAILY [facility] Last Admin: 12/01/21 08:14 Dose: 1,000 mcg Documented By: LUIZ Docusate Sodium (Docusate Sodium 100 Mg Capsule) 100 mg PO DAILY PRN PRN Reason: Constipation Fentanyl (Fentanyl Citrate/Pf 100 Mcg/2 Ml Vial) 25 mcg IVPUSH Q5M PRN; Protocol PRN Reason: Pain, Moderate (Pain Scale 4-6 Gabapentin (Gabapentin 300 Mg Capsule) 300 mg PO TID [facility] Last Admin: 12/01/21 08:14 Dose: 300 mg Documented By: LUZI Vancomycin HCl 750 mg/ Sodium (Chloride) 265 mls @ 265 mls/hr IV Q12H [facility] Last Infusion: 12/01/21 08:26 Dose: 0 mls/hr Documented By: LUIZ Piperacillin Sod/Tazobactam (Sod 3.375 gm/ Sodium Chloride) 50 mls @ 100 mls/hr IV Q6H [facility] Last Infusion: 12/01/21 08:51 Dose: 0 mls/hr Documented By: LUIZ Insulin Glargine (Insulin Glargine,Hum.Rec.Anlog 100 Unit/Ml 10 Ml Vial) 50 unit SUBCUT DAILY [facility] Insulin Human Lispro (Insulin Lispro 100 Unit/Ml 3 Ml Vial) 25 unit SUBCUT T IDAC [facility] Last Admin: 12/01/21 11:22 Dose: Not Given Documented By: LUIZ Non-Admin Reason: No Insulin Coverage Morphine Sulfate (Morphine Sulfate 4 Mg/Ml Cartridge) 4 mg IVPUSH Q3H PRN; Protocol PRN Reason: Pain, Severe (Pain Scale 7-10) Ondansetron HCl (Ondansetron Hcl 4 Mg/2 Ml Vial) 4 mg IVPUSH Q8H PRN PRN Reason: Nausea and Vomiting Last Admin: 11/30/21 04:54 Dose: 4 mg Documented By: SOLANGE Oxycodone HCl (Oxycodone Hcl Immed Release 5 Mg Tablet) 5 mg PO Q6H PRN PRN Reason: Pain, Severe (Pain Scale 7-10) Last Admin: 12/01/21 06:25 Dose: 5 mg Documented By: FROY Pharmacy Consult (Consult Rx Vancomycin Dosing) 1 each MISCELLANE DAILY PRN PRN Reason: Consult order Pharmacy Consult (Consult Rx Vancomycin Dosing) 1 each MISCELLANE DAILY PRN PRN Reason: Consult order Sodium Chloride (0.9 % Sodium Chloride Flush 3 Ml Syringe) 3 ml IVFLUSH QSHIFT [facility] Last Admin: 12/01/21 08:15 Dose: 3 ml Documented By: LUIZ Labs CBC & Chem 7: 12/01/21 05:35 12/01/21 05:35 Labs: Laboratory Results - last 24 hr 11/30/21 11/30/21 11/30/21 13:45 15:36 19:30 MCV MCH MCHC RDW Plt Count MPV Absolute Nucleated RBC Nucleated RBC % (auto) Anion Gap Estim Creat Clear Calc Estimated GFR POC Glucose 105 135 H 189 H Random Glucose Calcium 12/01/21 12/01/21 12/01/21 05:35 05:35 07:03 MCV 86.5 MCH 26.7 L MCHC 30.9 L RDW 15.9 Plt Count 631 H MPV 10.1 Absolute Nucleated RBC 0.000 Nucleated RBC % (auto) 0.0 Anion Gap 16 Estim Creat Clear Calc 81.3 Estimated GFR > 60 POC Glucose 140 H Random Glucose 114 Calcium 8.4 D 12/01/21 11:17 MCV MCH MCHC RDW Plt Count MPV Absolute Nucleated RBC Nucleated RBC % (auto) Anion Gap Estim Creat Clear Calc Estimated GFR POC Glucose 56 L* Random Glucose Calcium Microbiology Microbiology Results: Microbiology 11/29/21 17:52 Blood Culture - Preliminary Blood - Venous No growth after 24 hours. 11/29/21 17:53 Blood Culture - Preliminary Blood - Venous No growth after 24 hours. Assessment and Plan (1) Diabetic foot ulcer with osteomyelitis: Status: Acute Plan hospital d#3 51yo F with DM2, hx osteomyelitis, s/p multiple toe amputations and TMTA, PAD admitted with gangrene of R foot # R foot osteomyelitis/gangrene - s/p amputation of right 4th toe, debridement of right foot, incision and drainage of right foot abscess 11/30/21 - wound care: Please change bilateral foot dressings with fluffed gauze, ABD pads and Kerlex daily and prn - continue vanco + pip-jory d#3, ID consult pending # DM2 with hypoglycemia - decrease glargine, continue lispro # PAD - ASA/statin # HTN - amlodipine # neuropathy - gabapentin # VTE ppx: SCDs In my clinical judgment, the patient requires continued hospitalization for the following reasons: IV ABX, postop care Quality Stroke Does the patient have a stroke diagnosis?: No VTE Prior VTE?: No VTE Risk Level:: Medical - moderate - high VTE Device Contraindication: Treatment Not Indicated VTE Drug Contraindication: N/A - Med Ordered
[2021-12-01 11:42] LABS: Glucose, Whole Blood 75 mg/dL (60-115)
[2021-12-01] MEDS: Acetaminophen 325 MG TABLET 650 MG PO (12:55)
[2021-12-01 16:31] LABS: Glucose, Whole Blood 204 mg/dL (60-115)
[2021-12-01 17:35] LABS: Vancomycin Trough 13.4 mcg/mL (10.0-20.0)
--- NOTE | 2021-12-01 18:11 | HE.PHANOTE ---
Vanco increased to 1 gm 12h predicted auc>500 trough~15 before 3rd dose of 1 gm
[2021-12-01] MEDS: vancomycin HCL 1,000 MG in 0.9 % Sodium Chloride 250 ML 270 MG IV (18:51)
[2021-12-01 19:53] LABS: Glucose, Whole Blood 249 mg/dL (60-115)
[2021-12-02] VITALS (7 sets, daily range): BP systolic 127–148; BP diastolic 60–67; PULSE 77–85; RESP 16–20; TEMP 36.1–36.4; O2SAT 93–99
[2021-12-02] MEDS: Piperacillin Sodium/Tazobactam 3.375 GM in 0.9 % Sodium Chloride 50 ML IV ×4 (03:21→21:25)
[2021-12-02] MEDS: oxyCODONE HCl Immed Release 5 MG TABLET PO ×3 (04:10→21:25)
[2021-12-02] MEDS: vancomycin HCL 1,000 MG in 0.9 % Sodium Chloride 250 ML 270 MG IV ×2 (06:28→18:24)
[2021-12-02 07:23] LABS: Glucose, Whole Blood 197 mg/dL (60-115)
[2021-12-02] MEDS: Atorvastatin Calcium 80 MG TABLET PO (08:20)
[2021-12-02] MEDS: Gabapentin 300 MG CAPSULE PO ×3 (08:20→21:25)
[2021-12-02] MEDS: Insulin Lispro 100 UNIT/ML 3 ML VIAL 25 UNIT SUBCUT ×2 (08:21→12:08)
[2021-12-02] MEDS: amLODIPine Besylate 10 MG TABLET PO (08:21)
[2021-12-02] MEDS: Aspirin 81 MG TAB.CHEW PO (08:21)
[2021-12-02] MEDS: Cyanocobalamin (Vitamin B-12) 1,000 MCG TABLET 1000 MCG PO (08:21)
[2021-12-02] MEDS: Insulin Glargine,Hum.rec.anlog 100 UNIT/ML 10 ML VIAL 50 UNIT SUBCUT (08:22)
[2021-12-02] MEDS: 0.9 % Sodium Chloride Flush 3 ML SYRINGE IVFLUSH ×3 (08:22→21:35)
--- NOTE | 2021-12-02 10:09 | P.PNIM_ITS ---
Subjective Subjective Date of Service: 12/02/21 Interval History: This history was taken in German from the patient. pain controlled no fever foot dry Review of Systems Review of Systems: Yes all other systems are reviewed and are negative Physical Exam Vital Signs: Vital Signs: Last Vital Signs Temp 97.1 F 12/02/21 07:04 Pulse 80 12/02/21 07:04 Resp 16 12/02/21 07:04 BP 138/63 12/02/21 07:04 Pulse Ox 95 12/02/21 07:04 O2 Del Method 12/02/21 07:04 O2 Flow Rate 2 11/30/21 13:02 Oxygen Flow Rate 0 12/01/21 12:22 BMI result Body Mass Index 36.0 Gen: in no acute distress HEENT: sclera anicteric, moist mucus membranes Neck: supple Lungs: clear to auscultation bilaterally Heart: regular rate and rhythm, no murmurs Abd: soft, non-tender, non-distended Ext: L foot s/p TMTA, R foot in dry gauze dressing Skin: warm/well-perfused Neuro: alert and oriented x3, no focal findings Psych: appropriate affect Objective Data Active Medications Acetaminophen (Acetaminophen 325 Mg Tablet) 650 mg PO Q6H PRN PRN Reason: Pain, Mild (Pain Scale 1-3) Last Admin: 12/01/21 12:55 Dose: 650 mg Documented By: LUIZ Acetaminophen (Acetaminophen 325 Mg Tablet) 650 mg PO ONCE PRN PRN Reason: Pain, Mild (Pain Scale 1-3) Amlodipine Besylate (Amlodipine Besylate 10 Mg Tablet) 10 mg PO DAILY [facility]; Protocol Last Admin: 12/02/21 08:21 Dose: 10 mg Documented By: LUIZ Aspirin (Aspirin 81 Mg Tab.Chew) 81 mg PO DAILY [facility] Last Admin: 12/02/21 08:21 Dose: 81 mg Documented By: LUIZ Atorvastatin Calcium (Atorvastatin Calcium 80 Mg Tablet) 80 mg PO DAILY [facility] Last Admin: 12/02/21 08:20 Dose: 80 mg Documented By: LUIZ Cyanocobalamin (Cyanocobalamin (Vitamin B-12) 1,000 Mcg Tablet) 1,000 mcg PO DAILY [facility] Last Admin: 12/02/21 08:21 Dose: 1,000 mcg Documented By: LUIZ Docusate Sodium (Docusate Sodium 100 Mg Capsule) 100 mg PO DAILY PRN PRN Reason: Constipation Fentanyl (Fentanyl Citrate/Pf 100 Mcg/2 Ml Vial) 25 mcg IVPUSH Q5M PRN; Protocol PRN Reason: Pain, Moderate (Pain Scale 4-6 Gabapentin (Gabapentin 300 Mg Capsule) 300 mg PO TID [facility] Last Admin: 12/02/21 08:20 Dose: 300 mg Documented By: LUIZ Piperacillin Sod/Tazobactam (Sod 3.375 gm/ Sodium Chloride) 50 mls @ 100 mls/hr IV Q6H [facility] Last Infusion: 12/02/21 09:27 Dose: 0 mls/hr Documented By: COTEMA Vancomycin HCl 1,000 mg/ (Sodium Chloride) 270 mls @ 270 mls/hr IV Q12H [facility] Last Infusion: 12/02/21 08:22 Dose: 0 mls/hr Documented By: LUIZ Insulin Glargine (Insulin Glargine,Hum.Rec.Anlog 100 Unit/Ml 10 Ml Vial) 50 unit SUBCUT DAILY [facility] Last Admin: 12/02/21 08:22 Dose: 50 unit Documented By: LUIZ Insulin Human Lispro (Insulin Lispro 100 Unit/Ml 3 Ml Vial) 25 unit SUBCUT TIDAC [facility] Last Admin: 12/02/21 08:21 Dose: 25 unit Documented By: LUIZ Morphine Sulfate (Morphine Sulfate 4 Mg/Ml Cartridge) 4 mg IVPUSH Q3H PRN; Protocol PRN Reason: Pain, Severe (Pain Scale 7-10) Ondansetron HCl (Ondansetron Hcl 4 Mg/2 Ml Vial) 4 mg IVPUSH Q8H PRN PRN Reason: Nausea and Vomiting Last Admin: 11/30/21 04:54 Dose: 4 mg Documented By: PASCALE-ELIDA Oxycodone HCl (Oxycodone Hcl Immed Release 5 Mg Tablet) 5 mg PO Q6H PRN PRN Reason: Pain, Severe (Pain Scale 7-10) Last Admin: 12/02/21 04:10 Dose: 5 mg Documented By: NE Pharmacy Consult (Consult Rx Vancomycin Dosing) 1 each MISCELLANE DAILY PRN PRN Reason: Consult order Pharmacy Consult (Consult Rx Vancomycin Dosing) 1 each MISCELLANE DAILY PRN PRN Reason: Consult order Sodium Chloride (0.9 % Sodium Chloride Flush 3 Ml Syringe) 3 ml IVFLUSH QSHIFT [facility] Last Admin: 12/02/21 08:22 Dose: 3 ml Documented By: LUIZ Labs CBC & Chem 7: 12/01/21 05:35 12/01/21 05:35 Labs: Laboratory Results - last 24 hr 12/01/21 12/01/21 12/01/21 11:17 11:38 15:34 POC Glucose 56 L* 75 204 H Vancomycin Trough 12/01/21 12/01/21 12/02/21 17:05 19:41 07:08 POC Glucose 249 H 197 H Vancomycin Trough 13.4 Microbiology Microbiology Results: Microbiology 11/29/21 17:52 Blood Culture - Preliminary Blood - Venous No growth after 48 hours. 11/29/21 17:53 Blood Culture - Preliminary Blood - Venous No growth after 48 hours. Assessment and Plan (1) Diabetic foot ulcer with osteomyelitis: Status: Acute Plan hospital d#4 51yo F with DM2, hx osteomyelitis, s/p multiple toe amputations and TMTA, PAD admitted with gangrene of R foot # R foot osteomyelitis/gangrene - s/p amputation of right 4th toe, debridement of right foot, incision and drainage of right foot abscess on 11/30/[address] Wang - wound care: change bilateral foot dressings with fluffed gauze, ABD pads and Kerlex daily and prn - continue vanco + pip-jory d#4, ID consult pending # DM2 with hypoglycemia - decreased glargine and hypoglycemia resolved; continue lispro # PAD - ASA/statin # HTN - amlodipine # neuropathy - gabapentin # VTE ppx: SCDs # dispo: PT recommends STR, pt refuses, so anticipate home with VNA In my clinical judgment, the patient requires continued hospitalization for the following reasons: IV ABX, postop care Quality Stroke Does the patient have a stroke diagnosis?: No VTE Prior VTE?: No VTE Risk Level:: Medical - moderate - high VTE Device Contraindication: Treatment Not Indicated VTE Drug Contraindication: N/A - Med Ordered
--- NOTE | 2021-12-02 10:49 | MHC.CM.PN ---
EMR review, patient needs continued hospitalization r/t to need for IV antibiotics and post operative care. [facility] is following and can do a SOC for 12/06. D/C plan continues to be home with [facility] service. CM will continue to follow for discharge needs.
[2021-12-02 11:30] LABS: Glucose, Whole Blood 172 mg/dL (60-115)
[2021-12-02] MEDS: Acetaminophen 325 MG TABLET 650 MG PO (13:27)
--- NOTE | 2021-12-02 14:28 | HO.POSTANES ---
Post Anesthesia Evaluation Post Anesthesia Evaluation Vital Signs: Vital Signs Temp Pulse Resp BP Pulse Ox O2 Del Method 12/02/21 11:17 97.5 F 79 18 127/60 93 Room Air 12/02/21 12:00 93 Room Air 12/02/21 07:04 97.1 F 80 16 138/63 95 Room Air 12/02/21 03:40 97.5 F 85 17 140/63 H 96 Room Air Anesthesia: General LMA Mental Status: Awake Pain Control: Satisfactory Nausea/Vomiting: None Hydration: Adequate Anesthesia-Related Issues: No Anes. Related Issues
--- NOTE | 2021-12-02 15:43 | P.PNGS_ITS ---
Subjective Subjective Date of Service: 12/02/21 Patient reports: no new complaints and pain is less Interval history: The patient is seen in coverage She reports her foot pain is better and her dressing changes were uneventful. She otherwise denies any headache, visual difficulties or shortness of breath Physical Exam Vital Signs: Vital Signs: Last Vital Signs Temp 97.2 F 12/02/21 15:05 Pulse 80 12/02/21 15:05 Resp 20 12/02/21 15:05 BP 139/65 12/02/21 15:05 Pulse Ox 95 12/02/21 15:05 O2 Del Method 12/02/21 15:05 O2 Flow Rate 2 11/30/21 13:02 Oxygen Flow Rate 0 12/01/21 12:22 BMI result Body Mass Index 36.0 Dressings are freshly changed, clean, dry and intact She is in good spirits with appropriate mood, and affect Objective Data Active Medications Acetaminophen (Acetaminophen 325 Mg Tablet) 650 mg PO Q6H PRN PRN Reason: Pain, Mild (Pain Scale 1-3) Last Admin: 12/02/21 13:27 Dose: 650 mg Documented By: LUIZ Acetaminophen (Acetaminophen 325 Mg Tablet) 650 mg PO ONCE PRN PRN Reason: Pain, Mild (Pain Scale 1-3) Amlodipine Besylate (Amlodipine Besylate 10 Mg Tablet) 10 mg PO DAILY [facility]; Protocol Last Admin: 12/02/21 08:21 Dose: 10 mg Documented By: LUIZ Aspirin (Aspirin 81 Mg Tab.Chew) 81 mg PO DAILY [facility] Last Admin: 12/02/21 08:21 Dose: 81 mg Documented By: LUIZ Atorvastatin Calcium (Atorvastatin Calcium 80 Mg Tablet) 80 mg PO DAILY [facility] Last Admin: 12/02/21 08:20 Dose: 80 mg Documented By: LUIZ Cyanocobalamin (Cyanocobalamin (Vitamin B-12) 1,000 Mcg Tablet) 1,000 mcg PO DAILY [facility] Last Admin: 12/02/21 08:21 Dose: 1,000 mcg Documented By: LUIZ Docusate Sodium (Docusate Sodium 100 Mg Capsule) 100 mg PO DAILY PRN PRN Reason: Constipation Fentanyl (Fentanyl Citrate/Pf 100 Mcg/2 Ml Vial) 25 mcg IVPUSH Q5M PRN; Akira col PRN Reason: Pain, Moderate (Pain Scale 4-6 Gabapentin (Gabapentin 300 Mg Capsule) 300 mg PO TID [facility] Last Admin: 12/02/21 15:28 Dose: 300 mg Documented By: LUIZ Piperacillin Sod/Tazobactam (Sod 3.375 gm/ Sodium Chloride) 50 mls @ 100 mls/hr IV Q6H [facility] Last Infusion: 12/02/21 14:26 Dose: 0 mls/hr Documented By: LUIZ Vancomycin HCl 1,000 mg/ (Sodium Chloride) 270 mls @ 270 mls/hr IV Q12H [facility] Last Infusion: 12/02/21 08:22 Dose: 0 mls/hr Documented By: LUIZ Insulin Glargine (Insulin Glargine,Hum.Rec.Anlog 100 Unit/Ml 10 Ml Vial) 50 unit SUBCUT DAILY [facility] Last Admin: 12/02/21 08:22 Dose: 50 unit Documented By: LUIZ Insulin Human Lispro (Insulin Lispro 100 Unit/Ml 3 Ml Vial) 25 unit SUBCUT TIDAC [facility] Last Admin: 12/02/21 12:08 Dose: 25 unit Documented By: LUIZ Morphine Sulfate (Morphine Sulfate 4 Mg/Ml Cartridge) 4 mg IVPUSH Q3H PRN; Protocol PRN Reason: Pain, Severe (Pain Scale 7-10) Ondansetron HCl (Ondansetron Hcl 4 Mg/2 Ml Vial) 4 mg IVPUSH Q8H PRN PRN Reason: Nausea and Vomiting Last Admin: 11/30/21 04:54 Dose: 4 mg Documented By: SOLANGE Oxycodone HCl (Oxycodone Hcl Immed Release 5 Mg Tablet) 5 mg PO Q6H PRN PRN Reason: Pain, Severe (Pain Scale 7-10) Last Admin: 12/02/21 13:28 Dose: 5 mg Documented By: LUIZ Pharmacy Consult (Consult Rx Vancomycin Dosing) 1 each MISCELLANE DAILY PRN PRN Reason: Consult order Pharmacy Consult (Consult Rx Vancomycin Dosing) 1 each MISCELLANE DAILY PRN PRN Reason: Consult order Sodium Chloride (0.9 % Sodium Chloride Flush 3 Ml Syringe) 3 ml IVFLUSH QSHIFT [facility] Last Admin: 12/02/21 08:22 Dose: 3 ml Documented By: LUIZ Labs CBC & Chem 7: 12/01/21 05:35 12/01/21 05:35 Labs: Laboratory Results - last 24 hr 12/01/21 12/01/21 12/01/21 15:34 17:05 19:41 POC Glucose 204 H 249 H Vancomycin Trough 13.4 12/02/21 12/02/21 07:08 11:20 POC Glucose 197 H 172 H Vancomycin Trough Microbiology Microbiology Results: Microbiology 11/29/21 17:52 Blood Culture - Preliminary Blood - Venous No growth after 48 hours. 11/29/21 17:53 Blood Culture - Preliminary Blood - Venous No growth after 48 hours. Procedures Date of Service Date of Service: 12/02/21 Progress Note: A&P Assessment and plan (1) Diabetic foot ulcer with osteomyelitis: Status: Acute (2) Diabetic infection of right foot: Status: Acute (3) Leukocytosis: Status: Acute Plan Continue antibiotics and present wound care Dr. Wang to assume care Friday, 12/03 Time Spent With Patient Time: Total time spent is greater than 50% in coordination of care (as documented) at patient's floor/unit and/or counseling patient: Quality Stroke Does the patient have a stroke diagnosis?: No VTE Prior VTE?: No VTE Risk Level:: Medical - moderate - high VTE Device Contraindication: Treatment Not Indicated VTE Drug Contraindication: N/A - Med Ordered
[2021-12-02 15:53] LABS: Glucose, Whole Blood 69 mg/dL (60-115)
[2021-12-02 16:11] LABS: Glucose, Whole Blood 74 mg/dL (60-115)
[2021-12-02 17:48] LABS: Creatinine Clr Calc Pharmacy 89.6; Estimated Glomerular Filt Rate > 60
[2021-12-02 18:00] LABS: Vancomycin Random 15.6 mcg/mL (15-20)
[2021-12-02 19:58] LABS: Glucose, Whole Blood 134 mg/dL (60-115)
[2021-12-03] VITALS (8 sets, daily range): BP systolic 142–175; BP diastolic 60–81; PULSE 73–83; RESP 16–18; TEMP 36.2–37.4; O2SAT 91–96
[2021-12-03] MEDS: Piperacillin Sodium/Tazobactam 3.375 GM in 0.9 % Sodium Chloride 50 ML IV ×4 (01:20→19:41)
[2021-12-03 05:48] LABS: Hematocrit 26.6 % (37.0-47.0); Hemoglobin 8.2 g/dl (12.0-16.0); Mean Corpuscular HGB Conc 30.8 g/dl (31.0-35.0); Mean Corpuscular Hemoglobin 26.6 pg (27.0-33.0); Mean Corpuscular Volume 86.4 fL (80.0-98.0); Platelet Count 642 X10*3/uL (160-400); Red Blood Count 3.08 X10*6/uL (4.20-5.50); Red Cell Distribution Width 15.8 % (11.0-16.0); White Blood Count 17.8 X10*3/uL (4.8-10.8)
[2021-12-03 06:13] LABS: Anion Gap 15 (12-20); Blood Urea Nitrogen 14 mg/dL (9-16); Calcium 8.3 mg/dL (8.4-10.2); Carbon Dioxide 25 mmol/L (22-29); Chloride 103 mmol/L (96-108); Creatinine Clr Calc Pharmacy 81.3; Estimated Glomerular Filt Rate > 60; Glucose Random 169 mg/dL (60-115); Potassium 4.9 mmol/L (3.3-5.1); Sodium 138 mmol/L (135-145)
[2021-12-03] MEDS: vancomycin HCL 1,000 MG in 0.9 % Sodium Chloride 250 ML 270 MG IV ×2 (06:35→18:27)
[2021-12-03] MEDS: oxyCODONE HCl Immed Release 5 MG TABLET PO ×2 (06:41→20:44)
[2021-12-03 07:24] LABS: Glucose, Whole Blood 150 mg/dL (60-115)
--- NOTE | 2021-12-03 08:38 | PM.PNGS ---
Subjective Subjective Date of Service: 12/03/21 Interval history: Patient reports some discomfort in operative site but generally feels well. Denies any new symptoms. Physical Exam Vital Signs: Vital Signs: Last Vital Signs Temp 97.6 F 12/03/21 07:07 Pulse 77 12/03/21 07:07 Resp 18 12/03/21 07:07 BP 147/67 H 12/03/21 07:07 Pulse Ox 93 12/03/21 07:07 O2 Del Method 12/03/21 07:07 O2 Flow Rate 2 11/30/21 13:02 Oxygen Flow Rate 0 12/01/21 12:22 BMI result Body Mass Index 36.0 Const: General: no acute distress and well developed Nutritional Appearance: well nourished Orientation/consciousness: patient oriented x3 Limitations: no limitations Resp: Effort & Inspection: normal respiratory effort, no audible wheezes, no cough and no respiratory distress Skin: Other: Warm and dry, no rash Neuro: General: patient oriented x3 Extrem: Other: right foot dressings clean, dry, and intact without redness or discharge. No erythema in leg. Objective Data Active Medications Acetaminophen (Acetaminophen 325 Mg Tablet) 650 mg PO Q6H PRN PRN Reason: Pain, Mild (Pain Scale 1-3) Last Admin: 12/02/21 13:27 Dose: 650 mg Documented By: LUIZ Acetaminophen (Acetaminophen 325 Mg Tablet) 650 mg PO ONCE PRN PRN Reason: Pain, Mild (Pain Scale 1-3) Amlodipine Besylate (Amlodipine Besylate 10 Mg Tablet) 10 mg PO DAILY [facility]; Protocol Last Admin: 12/02/21 08:21 Dose: 10 mg Documented By: LUIZ Aspirin (Aspirin 81 Mg Tab.Chew) 81 mg PO DAILY [facility] Last Admin: 12/02/21 08:21 Dose: 81 mg Documented By: LUIZ Atorvastatin Calcium (Atorvastatin Calcium 80 Mg Tablet) 80 mg PO DAILY [facility] Last Admin: 12/02/21 08:20 Dose: 80 mg Documented By: LUIZ Cyanocobalamin (Cyanocobalamin (Vitamin B-12) 1,000 Mcg Tablet) 1,000 mcg PO DAILY [facility] Last Admin: 12/02/21 08:21 Dose: 1,000 mcg Documented By: LUIZ Docusate Sodium (Docusate Sodium 100 Mg Capsule) 100 mg PO DAILY PRN PRN Reason: Constipation Fentanyl (Fentanyl Citrate/Pf 100 Mcg/2 Ml Vial) 25 mcg IVPUSH Q5M PRN; Protocol PRN Reason: Pain, Moderate (Pain Scale 4-6 Gabapentin (Gabapentin 300 Mg Capsule) 300 mg PO TID [facility] Last Admin: 12/02/21 21:25 Dose: 300 mg Documented By: FROY Piperacillin Sod/Tazobactam (Sod 3.375 gm/ Sodium Chloride) 50 mls @ 100 mls/hr IV Q6H [facility] Last Infusion: 12/03/21 01:59 Dose: 100 mls/hr Documented By: FROY Vancomycin HCl 1,000 mg/ (Sodium Chloride) 270 mls @ 270 mls/hr IV Q12H [facility] Last Infusion: 12/03/21 07:58 Dose: 0 mls/hr Documented By: JESSIE Insulin Glargine (Insulin Glargine,Hum.Rec.Anlog 100 Unit/Ml 10 Ml Vial) 50 unit SUBCUT DAILY [facility] Last Admin: 12/02/21 08:22 Dose: 50 unit Documented By: LUIZ Insulin Human Lispro (Insulin Lispro 100 Unit/Ml 3 Ml Vial) 25 unit SUBCUT TIDAC [facility] Last Admin: 12/02/21 16:22 Dose: Not Given Documented By: LUIZ Non-Admin Reason: No Insulin Coverage Morphine Sulfate (Morphine Sulfate 4 Mg/Ml Cartridge) 4 mg IVPUSH Q3H PRN; Protocol PRN Reason: Pain, Severe (Pain Scale 7-10) Ondansetron HCl (Ondansetron Hcl 4 Mg/2 Ml Vial) 4 mg IVPUSH Q8H PRN PRN Reason: Nausea and Vomiting Last Admin: 11/30/21 04:54 Dose: 4 mg Documented By: SOLANGE Oxycodone HCl (Oxycodone Hcl Immed Release 5 Mg Tablet) 5 mg PO Q6H PRN PRN Reason: Pain, Severe (Pain Scale 7-10) Last Admin: 12/03/21 06:41 Dose: 5 mg Documented By: FROY Pharmacy Consult (Consult Rx Vancomycin Dosing) 1 each MISCELLANE DAILY PRN PRN Reason: Consult order Pharmacy Consult (Consult Rx Vancomycin Dosing) 1 each MISCELLANE DAILY PRN PRN Reason: Consult order Sodium Chloride (0.9 % Sodium Chloride Flush 3 Ml Syringe) 3 ml IVFLUSH QSHIFT [facility] Last Admin: 12/02/21 21:35 Dose: 3 ml Documented By: FROY Labs CBC & Chem 7: 12/03/21 05:09 12/03/21 05:09 Labs: Laboratory Results - last 24 hr 12/02/21 12/02/21 12/02/21 11:20 15:08 16:07 MCV MCH MCHC RDW Plt Count MPV Absolute Nucleated RBC Nucleated RBC % (auto) Anion Gap Estim Creat Clear Calc Estimated GFR POC Glucose 172 H 69 74 Random Glucose Calcium Random Vancomycin 12/02/21 12/02/21 12/02/21 17:27 17:27 19:24 MCV MCH MCHC RDW Plt Count MPV Absolute Nucleated RBC Nucleated RBC % (auto) Anion Gap Estim Creat Clear Calc 89.6 Estimated GFR > 60 POC Glucose 134 H Random Glucose Calcium Random Vancomycin 15.6 12/03/21 12/03/21 12/03/21 05:09 05:09 07:10 MCV 86.4 MCH 26.6 L MCHC 30.8 L RDW 15.8 Plt Count 642 H MPV 10.0 Absolute Nucleated RBC 0.000 Nucleated RBC % (auto) 0.0 Anion Gap 15 Estim Creat Clear Calc 81.3 Estimated GFR > 60 POC Glucose 150 H Random Glucose 169 H Calcium 8.3 L Random Vancomycin Procedures Date of Service Date of Service: 12/03/21 Progress Note: A&P Assessment and plan (1) Diabetic foot ulcer with osteomyelitis: Status: Acute Plan Status post amputation of 4th toe and debridement of 5th toe. Continue dressing changes antibiotics. Patient will probably need follow-up at Wound Care upon discharge. Will continue to monitor wounds. Time Spent With Patient Time: Total time spent is greater than 50% in coordination of care (as documented) at patient's floor/unit and/or counseling patient: Quality Stroke Does the patient have a stroke diagnosis?: No VTE Prior VTE?: No VTE Risk Level:: Medical - moderate - high VTE Device Contraindication: Treatment Not Indicated VTE Drug Contraindication: N/A - Med Ordered
[2021-12-03] MEDS: Aspirin 81 MG TAB.CHEW PO (08:52)
[2021-12-03] MEDS: 0.9 % Sodium Chloride Flush 3 ML SYRINGE IVFLUSH ×2 (08:52→15:21)
[2021-12-03] MEDS: Cyanocobalamin (Vitamin B-12) 1,000 MCG TABLET 1000 MCG PO (08:53)
[2021-12-03] MEDS: Atorvastatin Calcium 80 MG TABLET PO (08:53)
[2021-12-03] MEDS: amLODIPine Besylate 10 MG TABLET PO (08:53)
[2021-12-03] MEDS: Gabapentin 300 MG CAPSULE PO ×3 (08:53→20:42)
[2021-12-03] MEDS: Insulin Glargine,Hum.rec.anlog 100 UNIT/ML 10 ML VIAL 50 UNIT SUBCUT (10:17)
[2021-12-03 11:33] LABS: Glucose, Whole Blood 136 mg/dL (60-115)
--- NOTE | 2021-12-03 13:02 | P.PNIM_ITS ---
Subjective Subjective Date of Service: 12/03/21 Interval History: No acute issues overnight. Pain control adequate Review of Systems denies chest pain Denies shortness of breath Denies nausea vomiting diarrhea Denies fever chills Physical Exam Vital Signs: Vital Signs: Last Vital Signs Temp 97.3 F 12/03/21 11:12 Pulse 77 12/03/21 11:12 Resp 18 12/03/21 11:12 BP 174/72 H 12/03/21 11:12 Pulse Ox 95 12/03/21 11:32 O2 Del Method 12/03/21 11:30 O2 Flow Rate 2 11/30/21 13:02 Oxygen Flow Rate 0 12/01/21 12:22 BMI result Body Mass Index 36.0 Const: Other: no acute distress Resp: Other: clear to auscultation bilaterally no rales rhonchi or wheezes Cardio: Other: no S4; positive S1-S2; no S3 murmurs rubs or gallops GI: Other: soft nontender nondistended normoactive bowel sounds Extrem: Other: no edema bilaterally Objective Data Active Medications Acetaminophen (Acetaminophen 325 Mg Tablet) 650 mg PO Q6H PRN PRN Reason: Pain, Mild (Pain Scale 1-3) Last Admin: 12/02/21 13:27 Dose: 650 mg Documented By: LUIZ Acetaminophen (Acetaminophen 325 Mg Tablet) 650 mg PO ONCE PRN PRN Reason: Pain, Mild (Pain Scale 1-3) Amlodipine Besylate (Amlodipine Besylate 10 Mg Tablet) 10 mg PO DAILY [facility]; Protocol Last Admin: 12/03/21 08:53 Dose: 10 mg Documented By: JESSIE Aspirin (Aspirin 81 Mg Tab.Chew) 81 mg PO DAILY [facility] Last Admin: 12/03/21 08:52 Dose: 81 mg Documented By: JESSIE Atorvastatin Calcium (Atorvastatin Calcium 80 Mg Tablet) 80 mg PO DAILY [facility] Last Admin: 12/03/21 08:53 Dose: 80 mg Documented By: JESSIE Cyanocobalamin (Cyanocobalamin (Vitamin B-12) 1,000 Mcg Tablet) 1,000 mcg PO DA GILLES [facility] Last Admin: 12/03/21 08:53 Dose: 1,000 mcg Documented By: JESSIE Docusate Sodium (Docusate Sodium 100 Mg Capsule) 100 mg PO DAILY PRN PRN Reason: Constipation Fentanyl (Fentanyl Citrate/Pf 100 Mcg/2 Ml Vial) 25 mcg IVPUSH Q5M PRN; Protocol PRN Reason: Pain, Moderate (Pain Scale 4-6 Gabapentin (Gabapentin 300 Mg Capsule) 300 mg PO TID [facility] Last Admin: 12/03/21 08:53 Dose: 300 mg Documented By: JESSIE Piperacillin Sod/Tazobactam (Sod 3.375 gm/ Sodium Chloride) 50 mls @ 100 mls/hr IV Q6H [facility] Last Infusion: 12/03/21 09:21 Dose: 0 mls/hr Documented By: JESSIE Vancomycin HCl 1,000 mg/ (Sodium Chloride) 270 mls @ 270 mls/hr IV Q12H [facility] Last Infusion: 12/03/21 07:58 Dose: 0 mls/hr Documented By: JESSIE Insulin Glargine (Insulin Glargine,Hum.Rec.Anlog 100 Unit/Ml 10 Ml Vial) 50 unit SUBCUT DAILY [facility] Last Admin: 12/03/21 10:17 Dose: 50 unit Documented By: JESSIE Insulin Human Lispro (Insulin Lispro 100 Unit/Ml 3 Ml Vial) 25 unit SUBCUT TIDAC [facility] Last Admin: 12/03/21 11:45 Dose: Not Given Documented By: JESSIE Non-Admin Reason: Patient Refused Comments: pt states she would not take any insulin for POC 136 Morphine Sulfate (Morphine Sulfate 4 Mg/Ml Cartridge) 4 mg IVPUSH Q3H PRN; Protocol PRN Reason: Pain, Severe (Pain Scale 7-10) Ondansetron HCl (Ondansetron Hcl 4 Mg/2 Ml Vial) 4 mg IVPUSH Q8H PRN PRN Reason: Nausea and Vomiting Last Admin: 11/30/21 04:54 Dose: 4 mg Documented By: SOLANGE Oxycodone HCl (Oxycodone Hcl Immed Release 5 Mg Tablet) 5 mg PO Q6H PRN PRN Reason: Pain, Severe (Pain Scale 7-10) Last Admin: 12/03/21 06:41 Dose: 5 mg Documented By: FROY Pharmacy Consult (Consult Rx Vancomycin Dosing) 1 each MISCELLANE DAILY PRN PRN Reason: Consult order Pharmacy Consult (Consult Rx Vancomycin Dosing) 1 each MISCELLANE DAILY PRN PRN Reason: Consult order Sodium Chloride (0.9 % Sodium Chloride Flush 3 Ml Syringe) 3 ml IVFLUSH QSHIFT [facility] Last Admin: 12/03/21 08:52 Dose: 3 ml Documented By: JESSIE Labs CBC & Chem 7: 12/03/21 05:09 12/03/21 05:09 Labs: Laboratory Results - last 24 hr 12/02/21 12/02/21 12/02/21 15:08 16:07 17:27 MCV MCH MCHC RDW Plt Count MPV Absolute Nucleated RBC Nucleated RBC % (auto) Anion Gap Estim Creat Clear Calc Estimated GFR POC Glucose 69 74 Random Glucose Calcium Random Vancomycin 15.6 12/02/21 12/02/21 12/03/21 17:27 19:24 05:09 MCV 86.4 MCH 26.6 L MCHC 30.8 L RDW 15.8 Plt Count 642 H MPV 10.0 Absolute Nucleated RBC 0.000 Nucleated RBC % (auto) 0.0 Anion Gap Estim Creat Clear Calc 89.6 Estimated GFR > 60 POC Glucose 134 H Random Glucose Calcium Random Vancomycin 12/03/21 12/03/21 12/03/21 05:09 07:10 11:16 MCV MCH MCHC RDW Plt Count MPV Absolute Nucleated RBC Nucleated RBC % (auto) Anion Gap 15 Estim Creat Clear Calc 81.3 Estimated GFR > 60 POC Glucose 150 H 136 H Random Glucose 169 H Calcium 8.3 L Random Vancomycin Assessment and Plan (1) Diabetic infection of right foot: Status: Acute (2) Hypertension: Status: Acute (3) Diabetes: Status: Acute (4) Status post amputation of toe of right foot: Status: Acute Plan 51yo F with DM2, hx osteomyelitis, s/p multiple toe amputations and TMTA, PAD admitted with gangrene of R foot 1.Diabetic foot infection (right) - s/p amputation of right 4th toe, debridement of right foot, incision and drainage of right foot abscess on 11/30/[address] Wang - wound care as per surgery - Vanco/Zosyn)(5), -ID consult pending 2. DM2 - acceptable control on current therapies -Adjust as indicated 3. PAD - ASA/statin 4.HTN - acceptable control on current therapies - continue amlodipine SCDs Full code Will require ongoing hospitalization for IV antibiotics to treat diabetic right foot infection Quality Stroke Does the patient have a stroke diagnosis?: No VTE Prior VTE?: No VTE Risk Level:: Medical - moderate - high VTE Device Contraindication: Treatment Not Indicated VTE Drug Contraindication: N/A - Med Ordered
--- NOTE | 2021-12-03 14:22 | P.CNID_ITS ---
History of Present Illness Data of Consult Service Date: 12/03/21 Requesting physician: Wilemr Thompson Primary Care Provider: Unknown Physician HPI Reason for consult: osteomyelitis She presents with distal fifth right toe swelling and pain last two weeks. She has been followed by [facility] and V[facility]. She has exposed bone. Review of Systems Review of Systems: Yes all other systems are reviewed and are negative PMFSH Past Medical History Medical History Abscess Amputated toe of left foot Amputation of left foot BMI 39.0-39.9,adult Chronic heart failure with preserved ejection fraction (HFpEF) Chronic osteomyelitis of foot Diabetes Diabetic foot infection Hyperlipidemia Hypertension Insulin dependent diabetes mellitus Neuropathy Obesity Osteomyelitis PAD (peripheral artery disease) Type 2 diabetes mellitus with unspecified complications Vitamin B12 deficiency VRE (vancomycin resistant enterococcus) culture positive Family History Family History Mother Diabetes Hypertension Disk prolapse Father Diabetes Hypertension Sister No problems noted. Brother No problems noted. Daughter No problems noted. Son No problems noted. Surgical History Surgical History H/O spinal fusion History of amputation of left foot History of section History of tubal ligation Social History Social History Household Members: Spouse Household Members Other:: Housing: Apartment Do you presently have visiting nurse or other home services: Yes Alcohol intake: never Patient Tobacco Use Status: Never used Tobacco e-Cigarette/Vaping Use: Never Used Second Hand Smoke Exposure: No Advance Directives Date on File: 02/15/21 service: No Current occupational status: unemployed Meds Allergies Allergy/AdvReac Type Severity Reaction Status Date / Time No Known Allergies Allergy Verified 10/30/21 14:37 [No Known Allergies*] Active Medications: Current Medications Acetaminophen (Acetaminophen 325 Mg Tablet) 650 mg PO Q6H PRN PRN Reason: Pain, Mild (Pain Scale 1-3) Last Admin: 12/02/21 13:27 Dose: 650 mg Acetaminophen (Acetaminophen 325 Mg Tablet) 650 mg PO ONCE PRN PRN Reason: Pain, Mild (Pain Scale 1-3) Amlodipine Besylate (Amlodipine Besylate 10 Mg Tablet) 10 mg PO DAILY [facility]; Protocol Last Admin: 12/03/21 08:53 Dose: 10 mg Aspirin (Aspirin 81 Mg Tab.Chew) 81 mg PO DAILY [facility] Last Admin: 12/03/21 08:52 Dose: 81 mg Atorvastatin Calcium (Atorvastatin Calcium 80 Mg Tablet) 80 mg PO DAILY [facility] Last Admin: 12/03/21 08:53 Dose: 80 mg Cyanocobalamin (Cyanocobalamin (Vitamin B-12) 1,000 Mcg Tablet) 1,000 mcg PO DAILY [facility] Last Admin: 12/03/21 08:53 Dose: 1,000 mcg Docusate Sodium (Docusate Sodium 100 Mg Capsule) 100 mg PO DAILY PRN PRN Reason: Constipation Fentanyl (Fentanyl Citrate/Pf 100 Mcg/2 Ml Vial) 25 mcg IVPUSH Q5M PRN; Protocol PRN Reason: Pain, Moderate (Pain Scale 4-6 Gabapentin (Gabapentin 300 Mg Capsule) 300 mg PO TID [facility] Last Admin: 12/03/21 08:53 Dose: 300 mg Piperacillin Sod/Tazobactam (Sod 3.375 gm/ Sodium Chloride) 50 mls @ 100 mls/hr IV Q6H [facility] Last Infusion: 12/03/21 09:21 Dose: Infused Vancomycin HCl 1,000 mg/ (Sodium Chloride) 270 mls @ 270 mls/hr IV Q12H [facility] Last Infusion: 12/03/21 07:58 Dose: Infused Insulin Glargine (Insulin Glargine,Hum.Rec.Anlog 100 Unit/Ml 10 Ml Vial) 50 unit SUBCUT DAILY [facility] Last Admin: 12/03/21 10:17 Dose: 50 unit Insulin Human Lispro (Insulin Lispro 100 Unit/Ml 3 Ml Vial) 25 unit SUBCUT TIDAC [facility] Last Admin: 12/03/21 11:45 Dose: Not Given Morphine Sulfate (Morphine Sulfate 4 Mg/Ml Cartridge) 4 mg IVPUSH Q3H PRN; Protocol PRN Reason: Pain, Severe (Pain Scale 7-10) Ondansetron HCl (Ondansetron Hcl 4 Mg/2 Ml Vial) 4 mg IVPUSH Q8H PRN PRN Reason: Nausea and Vomiting Last Admin: 11/30/21 04:54 Dose: 4 mg Oxycodone HCl (Oxycodone Hcl Immed Release 5 Mg Tablet) 5 mg PO Q6H PRN PRN Reason: Pain, Severe (Pain Scale 7-10) Last Admin: 12/03/21 06:41 Dose: 5 mg Pharmacy Consult (Consult Rx Vancomycin Dosing) 1 each MISCELLANE DAILY PRN PRN Reason: Consult order Pharmacy Consult (Consult Rx Vancomycin Dosing) 1 each MISCELLANE DAILY PRN PRN Reason: Consult order Sodium Chloride (0.9 % Sodium Chloride Flush 3 Ml Syringe) 3 ml IVFLUSH QSHIFT [facility] Last Admin: 12/03/21 08:52 Dose: 3 ml Home Medications Medication Instructions Recorded Confirmed Last Taken Type amlodipine 10 mg tablet 1 tab PO DAILY 03/19/20 11/29/21 11/28/21 History gabapentin 300 mg capsule 1 cap PO TID 03/19/20 11/29/21 11/28/21 History insulin aspart U-100 100 unit/mL 25 unit subcut TIDAC 03/19/20 11/29/21 11/29/21 History subcutaneous solution (Novolog U-100 Insulin aspart) aspirin 81 mg chewable tablet 81 mg PO DAILY 06/17/21 11/29/21 11/28/21 History blood-glucose meter (FreeStyle #1 ea 07/03/21 11/28/21 History [place] Lite kit) insulin glargine 100 unit/mL 90 unit subcut DAILY 09/13/21 11/29/21 11/28/21 History subcutaneous solution (Lantus U-100 Insulin) atorvastatin 80 mg tablet 80 mg PO DAILY 11/29/21 11/29/21 11/28/21 History Physical Exam Vital Signs: Vital Signs: Last Vital Signs Temp 97.3 F 12/03/21 11:12 Pulse 77 12/03/21 11:12 Resp 18 12/03/21 11:12 BP 174/72 H 12/03/21 11:12 Pulse Ox 95 12/03/21 11:32 O2 Del Method 12/03/21 11:30 O2 Flow Rate 2 11/30/21 13:02 Oxygen Flow Rate 0 12/01/21 12:22 BMI result Body Mass Index 36.0 Const: General: cooperative HEENT: Head: Yes normal to inspection Face and sinus: Yes normal facial exam Mouth: Normal oral and palatal mucosa present Teeth and gingiva: dentition normal Eyes: General: appearance normal, both eyes and all related structures Pupils: Equal, round and reactive pupils present Resp: Effort & Inspection: normal respiratory effort Cardio: Rate: regular rate Rhythm: regular rhythm GI: Palpation (GI): Soft to palpation and nontender : General: Yes no CVA tenderness Back/Spine/Pelvis: Back: no CVA tenderness Skin: General skin exam: no rashes or lesions noted Neuro: General: moves all extremities Cranial nerves: Yes Equal, round and reactive pupils present Extrem: Other: right exposed bone lateral necrotic General: Yes normal to inspection Psych: Appearance: grossly normal Results Labs CBC & Chem 7: 12/03/21 05:09 12/03/21 05:09 Labs: Short CBC 12/03/21 Range/Units 05:09 WBC 17.8 H (4.8-10.8) X10*3/uL Hgb 8.2 L (12.0-16.0) g/dl Hct 26.6 L (37.0-47.0) % Plt Count 642 H (160-400) X10*3/uL BMP 12/02/21 12/03/21 17:27 05:09 Sodium 138 Potassium 4.9 Chloride 103 Carbon Dioxide 25 BUN 14 Creatinine 0.78 0.86 Calcium 8.3 L Microbiology Microbiology Results: Microbiology 11/29/21 17:52 Blood - Venous Blood Culture - Preliminary No growth after 48 hours. 11/29/21 17:53 Blood - Venous Blood Culture - Preliminary No growth after 48 hours. Assessment and Plan (1) Diabetic foot ulcer with osteomyelitis: Status: Acute She has osteomyelitis and healing unlikely with exposed bone Culture is unknown care home nonhealing ulcer Plan IV Ertapenem or Vancomycin six weeks likely and then possible po Cultures if able
--- NOTE | 2021-12-03 15:01 | MHC.CM.PN ---
Addendum entered by Jelena Jones RN 12/03/21 15:30: [facility] MET W/PT AT BEDSIDE FOR REFRESHER TEACH, REFERRAL PLACED. Original Note: EMR REVIEWED, PT REMAINS ON IV ABX, PER ID CONSULT PT WILL NEED 6WKS IV ERTAPENEM VS VANCO, CM WILL PLACE REFERRAL FOR HI, CM WILL CONT TO FOLLOW D/C NEEDS.
[2021-12-03 15:33] LABS: Glucose, Whole Blood 148 mg/dL (60-115)
[2021-12-03 17:59] LABS: Vancomycin Random 16.9 mcg/mL (15-20)
--- NOTE | 2021-12-03 18:02 | HE.PHANOTE ---
Vancomycin Dosing Addendum Vancomycin Trough 16.9, Cr slightly increased. Continue same dose for now, next level 12/04/21 @1700
--- NOTE | 2021-12-03 18:05 | PC.NURSE ---
dressings to both feet changed- DSD with wrap applied
[2021-12-03 19:48] LABS: Glucose, Whole Blood 248 mg/dL (60-115)
[2021-12-04] VITALS (7 sets, daily range): BP systolic 151–175; BP diastolic 66–82; PULSE 72–80; RESP 16–18; TEMP 36.2–37.3; O2SAT 93–100
[2021-12-04] MEDS: Piperacillin Sodium/Tazobactam 3.375 GM in 0.9 % Sodium Chloride 50 ML IV ×3 (01:05→20:04)
[2021-12-04] MEDS: 0.9 % Sodium Chloride Flush 3 ML SYRINGE IVFLUSH ×3 (01:06→20:04)
[2021-12-04 05:35] LABS: MANUAL DIFF FLAG NO
[2021-12-04 05:41] LABS: Basophils Absolute Auto 0.1 X10*3/uL (0.0-0.2); Basophils Percent Auto 0.8 % (0-2); Eosinophils Absolute Auto 0.7 X10*3/uL (0.0-0.4); Hematocrit 27.9 % (37.0-47.0); Hemoglobin 8.7 g/dl (12.0-16.0); Imm Gran Abs Auto 0.11 X10*3/uL (0.00-0.03); Imm Gran Pct Auto 0.6 % (0.0-0.4); Lymphocytes Absolute Auto 3.9 X10*3/uL (1.2-4.9); Lymphocytes Percent Auto 23.2 % (20-40); Mean Corpuscular HGB Conc 31.2 g/dl (31.0-35.0); Mean Corpuscular Hemoglobin 26.4 pg (27.0-33.0); Mean Corpuscular Volume 84.8 fL (80.0-98.0); Mean Platelet Volume 9.7 fL (9.4-12.3); Monocytes Absolute Auto 1.3 X10*3/uL (0.1-1.2); Monocytes Percent Auto 7.4 % (2-11); Neutrophils Absolute Auto 10.8 x10*3/uL (2.0-8.3); Platelet Count 693 X10*3/uL (160-400); Red Blood Count 3.29 X10*6/uL (4.20-5.50); Red Cell Distribution Width 15.7 % (11.0-16.0); White Blood Count 16.9 X10*3/uL (4.8-10.8)
[2021-12-04 06:04] LABS: Alanine Aminotransferase 8 U/L (0-31); Albumin Level 2.8 g/dL (3.5-5.0); Alkaline Phosphatase 234 U/L (39-117); Anion Gap 15 (12-20); Aspartate Amino Transferase 13 U/L (5-31); Bilirubin Total 0.4 mg/dL (0.0-1.0); Blood Urea Nitrogen 14 mg/dL (9-16); Calcium 9.1 mg/dL (8.4-10.2); Carbon Dioxide 25 mmol/L (22-29); Chloride 102 mmol/L (96-108); Creatinine Clr Calc Pharmacy 81.3; Estimated Glomerular Filt Rate > 60; Glucose Fasting 175 mg/dL (60-99); Potassium 4.9 mmol/L (3.3-5.1); Sodium 137 mmol/L (135-145); Total Protein 6.6 g/dL (6.5-8.0)
[2021-12-04] MEDS: vancomycin HCL 1,000 MG in 0.9 % Sodium Chloride 250 ML 270 MG IV (06:15)
[2021-12-04 07:31] LABS: Glucose, Whole Blood 146 mg/dL (60-115)
--- NOTE | 2021-12-04 08:06 | P.CDIC_ITS ---
CDI Concurrent Query Documentation Clarification: PHYSICIAN'S DOCUMENTATION REQUEST Date of Query: 12/04/21805 Patient Name: Staci Shirley Admit Date: 11/29/21 Dear Doctor, A review of the medical record indicates additional documentation may be needed. Please review below and update the documentation accordingly. Clinical Indicators Risk Factors/Clinical Indicators/Treatments Surgery note 11/30 - patient with history of diabetic foot ulcers and osteomyelitis now presenting with the nectrotic 4th toe and evidence of Sepsis. Patient has elevated WBC, prior history of amputation. In addition there is an abscess in the instep. WBC 23.1 LA 1.3 HR 89 Temp 98.2 IV Vancomycin, Zosyn, IV fluids. Sepsis Systemic manifestations of infection, with 2 or more SIRS criteria which include: * Fever > 100.4?F or hypothermia < 96.8?F * Leukocytosis ? WBC > 12,000 or leukopenia, WBC < 4,000, or > 10% bands * Tachycardia- > 90 beats/minute * Tachypnea- RR > 20 breaths/minute or PaCO2 < 32mmHg Source: Merck Manual 2013 Documentation should include the known or suspected organism, and the underlying infection, such as UTI or pneumonia Based on the above information and the recognized standard for sepsis, could you please clarify in the Progress Notes if this diagnoses is still accurate and reflective of the patient's condition to ensure quality of the medical record. Treating, ruled out, resolved etc. * Sepsis is/was present and is a clinical diagnosis based on (please include this additional support in the medical record) * After study (the condition) has been ruled out * Other (please specify) * Unable to determine Use of terms such as suspected, likely, concern for, or probable (associated with a specific diagnosis that is being evaluated, monitored, or treated as if it exists) are acceptable and can be coded in the inpatient setting, when documented at the time of discharge. Thank you, Edith Harrison [facility], CDIS Extension: [phone] Please use your independent medical judgment in providing your response. THIS QUERY IS PART OF THE PERMANENT MEDICAL RECORD Provider Response: Other Other Diagnosis: after studies sepsis has been ruled out
--- NOTE | 2021-12-04 08:14 | PM.PNGS ---
Subjective Subjective Date of Service: 12/04/21 Patient reports: no new complaints and pain is less Physical Exam Vital Signs: Vital Signs: Last Vital Signs Temp 99.1 F 12/04/21 08:00 Pulse 72 12/04/21 08:00 Resp 17 12/04/21 08:00 BP 151/66 H 12/04/21 08:00 Pulse Ox 94 12/04/21 08:00 O2 Del Method 12/04/21 08:00 O2 Flow Rate 2 11/30/21 13:02 Oxygen Flow Rate 0 12/01/21 12:22 BMI result Body Mass Index 36.0 Const: General: no acute distress Nutritional Appearance: well nourished Orientation/consciousness: patient oriented x3 Resp: Effort & Inspection: normal respiratory effort Skin: General skin exam: no rashes or lesions noted Neuro: General: patient oriented x3 Extrem: Other: dressings changed to the right foot. Evidence of granulation tissue noted at the margins. No exposed bone noted and no evidence of necrosis. Small amount of serosanguineous discharge noted but no purulent output. Clean dressings applied. Objective Data Active Medications Acetaminophen (Acetaminophen 325 Mg Tablet) 650 mg PO Q6H PRN PRN Reason: Pain, Mild (Pain Scale 1-3) Last Admin: 12/02/21 13:27 Dose: 650 mg Documented By: LUIZ Acetaminophen (Acetaminophen 325 Mg Tablet) 650 mg PO ONCE PRN PRN Reason: Pain, Mild (Pain Scale 1-3) Amlodipine Besylate (Amlodipine Besylate 10 Mg Tablet) 10 mg PO DAILY [facility]; Protocol Last Admin: 12/03/21 08:53 Dose: 10 mg Documented By: JESSIE Aspirin (Aspirin 81 Mg Tab.Chew) 81 mg PO DAILY [facility] Last Admin: 12/03/21 08:52 Dose: 81 mg Documented By: JESSIE Atorvastatin Calcium (Atorvastatin Calcium 80 Mg Tablet) 80 mg PO DAILY [facility] Last Admin: 12/03/21 08:53 Dose: 80 mg Documented By: JESSIE Cyanocobalamin (Cyanocobalamin (Vitamin B-12) 1,000 Mcg Tablet) 1,000 mcg PO DAILY [facility] Last Admin: 12/03/21 08:53 Dose: 1,000 mcg Documented By: JESSIE Docusate Sodium (Docusate Sodium 100 Mg Capsule) 100 mg PO DAILY PRN PRN Reason: Constipation Fentanyl (Fentanyl Citrate/Pf 100 Mcg/2 Ml Vial) 25 mcg IVPUSH Q5M PRN; Protocol PRN Reason: Pain, Moderate (Pain Scale 4-6 Gabapentin (Gabapentin 300 Mg Capsule) 300 mg PO TID [facility] Last Admin: 12/03/21 20:42 Dose: 300 mg Documented By: FROY Piperacillin Sod/Tazobactam (Sod 3.375 gm/ Sodium Chloride) 50 mls @ 100 mls/hr IV Q6H [facility] Last Infusion: 12/04/21 02:47 Dose: 100 mls/hr Documented By: FROY Vancomycin HCl 1,000 mg/ (Sodium Chloride) 270 mls @ 270 mls/hr IV Q12H [facility] Last Admin: 12/04/21 06:15 Dose: 270 mls/hr Documented By: FROY Insulin Glargine (Insulin Glargine,Hum.Rec.Anlog 100 Unit/Ml 10 Ml Vial) 50 unit SUBCUT DAILY [facility] Last Admin: 12/03/21 10:17 Dose: 50 unit Documented By: JESSIE Insulin Human Lispro (Insulin Lispro 100 Unit/Ml 3 Ml Vial) 25 unit SUBCUT TIDAC [facility] Last Admin: 12/04/21 07:46 Dose: Not Given Documented By: JOSI Non-Admin Reason: Patient Refused Morphine Sulfate (Morphine Sulfate 4 Mg/Ml Cartridge) 4 mg IVPUSH Q3H PRN; Protocol PRN Reason: Pain, Severe (Pain Scale 7-10) Ondansetron HCl (Ondansetron Hcl 4 Mg/2 Ml Vial) 4 mg IVPUSH Q8H PRN PRN Reason: Nausea and Vomiting Last Admin: 11/30/21 04:54 Dose: 4 mg Documented By: SOLANGE Oxycodone HCl (Oxycodone Hcl Immed Release 5 Mg Tablet) 5 mg PO Q6H PRN PRN Reason: Pain, Severe (Pain Scale 7-10) Last Admin: 12/03/21 20:44 Dose: 5 mg Documented By: FROY Pharmacy Consult (Consult Rx Vancomycin Dosing) 1 each MISCELLANE DAILY PRN PRN Reason: Consult order Pharmacy Consult (Consult Rx Vancomycin Dosing) 1 each MISCELLANE DAILY PRN PRN Reason: Consult order Sodium Chloride (0.9 % Sodium Chloride Flush 3 Ml Syringe) 3 ml IVFLUSH QSHIFT [facility] Last Admin: 12/04/21 07:46 Dose: Not Given Documented By: JOSI Non-Admin Reason: IV Running Labs CBC & Chem 7: 12/04/21 05:14 12/04/21 05:14 Labs: Laboratory Results - last 24 hr 12/03/21 12/03/21 12/03/21 11:16 15:28 17:15 MCV MCH MCHC RDW Plt Count MPV Immature Gran % (Auto) Neut % (Auto) Lymph % (Auto) Benson % (Auto) Eos % (Auto) Baso % (Auto) Lymph # (Auto) Benson # (Auto) Eos # (Auto) Baso # (Auto) Abs Immat Gran (auto) Absolute Neuts (auto) Absolute Nucleated RBC Nucleated RBC % (auto) Anion Gap Estim Creat Clear Calc Estimated GFR POC Glucose 136 H 148 H Fasting Glucose Calcium Total Bilirubin AST ALT Alkaline Phosphatase Total Protein Albumin Random Vancomycin 16.9 12/03/21 12/04/21 12/04/21 19:30 05:14 05:14 MCV 84.8 MCH 26.4 L MCHC 31.2 RDW 15.7 Plt Count 693 H MPV 9.7 Immature Gran % (Auto) 0.6 H Neut % (Auto) 64.0 Lymph % (Auto) 23.2 Benson % (Auto) 7.4 Eos % (Auto) 4.0 Baso % (Auto) 0.8 Lymph # (Auto) 3.9 Benson # (Auto) 1.3 H Eos # (Auto) 0.7 H Baso # (Auto) 0.1 Abs Immat Gran (auto) 0.11 H Absolute Neuts (auto) 10.8 H Absolute Nucleated RBC 0.000 Nucleated RBC % (auto) 0.0 Anion Gap 15 Estim Creat Clear Calc 81.3 Estimated GFR > 60 POC Glucose 248 H Fasting Glucose 175 H Calcium 9.1 D Total Bilirubin 0.4 AST 13 ALT 8 Alkaline Phosphatase 234 H D Total Protein 6.6 Albumin 2.8 L Random Vancomycin 12/04/21 07:19 MCV MCH MCHC RDW Plt Count MPV Immature Gran % (Auto) Neut % (Auto) Lymph % (Auto) Benson % (Auto) Eos % (Auto) Baso % (Auto) Lymph # (Auto) Benson # (Auto) Eos # (Auto) Baso # (Auto) Abs Immat Gran (auto) Absolute Neuts (auto) Absolute Nucleated RBC Nucleated RBC % (auto) Anion Gap Estim Creat Clear Calc Estimated GFR POC Glucose 146 H Fasting Glucose Calcium Total Bilirubin AST ALT Alkaline Phosphatase Total Protein Albumin Random Vancomycin Procedures Date of Service Date of Service: 12/04/21 Progress Note: A&P Assessment and plan (1) Diabetic foot ulcer with osteomyelitis: Status: Acute Plan Pod 4 following debridement right foot, amputation 4th toe right foot, and incision and drainage abscess. Wounds are clean with no evidence of necrosis or exposed bone. Continue local wound care. Time Spent With Patient Time: Total time spent is greater than 50% in coordination of care (as documented) at patient's floor/unit and/or counseling patient: Quality Stroke Does the patient have a stroke diagnosis?: No VTE Prior VTE?: No VTE Risk Level:: Medical - moderate - high VTE Device Contraindication: Treatment Not Indicated VTE Drug Contraindication: N/A - Med Ordered
--- NOTE | 2021-12-04 11:03 | HO.PICC ---
PICC Line Insertion NPICC Diagnosis: Osteomyelitis of the Right foot Indication: or director antibiotics Pertinent Labs: Reviewed Technique: Following informed consent including risks, benefits and alternatives and using sterile technique including cap and mask, sterile gown, glove and drape, the Right arm was prepped and draped in the usual sterile fashion of full barrier technique with CHG. Following completion of [place] Protocol the skin and soft tissues were anesthetized with 1% Lidocaine plain. Using ultrasound guidance, the Right Basilic vein access was obtained in a single attempt by this RN. Over an 0.018 wire through peel-away sheath, a 4 upper sorbian single lumen Bard PowerPICC Solo PASV PICC line was positioned. Catheter length is 45 cm internal length, 0 cm external length, for a total trimmed length of 45 cm. The procedure was performed in S272. Tip verification was performed by Rober Sands with Shermonique 3CG. Tip located in SVC. Ultrasound was used to document vein patency and for needle entry. A formal ultrasound picture and cardiac rhythm strip was recorded. Vascular Senior Qc Technician has released the line for use and it is currently dressed with a StatLock, Tegaderm, and CHG disc. Verification has been performed for blood return and line patency. Arm Circumference: 37 cm Equipment: 4 upper sorbian PASV Bard PowerPICC Solo PICC Catheter Type: 4 upper sorbian PASV Bard PowerPICC Solo PICC Lot #: [id number]
[2021-12-04] MEDS: Insulin Glargine,Hum.rec.anlog 100 UNIT/ML 10 ML VIAL 50 UNIT SUBCUT (11:43)
[2021-12-04] MEDS: Atorvastatin Calcium 80 MG TABLET PO (11:44)
[2021-12-04] MEDS: Gabapentin 300 MG CAPSULE PO ×3 (11:44→20:04)
[2021-12-04] MEDS: Cyanocobalamin (Vitamin B-12) 1,000 MCG TABLET 1000 MCG PO (11:44)
[2021-12-04] MEDS: Aspirin 81 MG TAB.CHEW PO (11:44)
[2021-12-04] MEDS: amLODIPine Besylate 10 MG TABLET PO (11:44)
[2021-12-04 11:51] LABS: Glucose, Whole Blood 166 mg/dL (60-115)
[2021-12-04] MEDS: oxyCODONE HCl Immed Release 5 MG TABLET PO (13:56)
--- NOTE | 2021-12-04 14:10 | P.PNIM_ITS ---
Subjective Subjective Date of Service: 12/04/21 Interval History: pain control adequate this morning. Had PICC line placed late morning no acute issues Review of Systems denies chest pain Denies shortness of breath Denies nausea vomiting diarrhea Denies fever chills Physical Exam Vital Signs: Vital Signs: Last Vital Signs Temp 97.6 F 12/04/21 11:39 Pulse 76 12/04/21 11:39 Resp 16 12/04/21 11:39 BP 157/77 H 12/04/21 11:39 Pulse Ox 97 12/04/21 12:00 O2 Del Method 12/04/21 12:00 O2 Flow Rate 2 11/30/21 13:02 Oxygen Flow Rate 0 12/01/21 12:22 BMI result Body Mass Index 36.0 Const: Other: no acute distress Resp: Other: clear to auscultation bilaterally no rales rhonchi or wheezes Cardio: Other: no S4; positive S1-S2; no S3 murmurs rubs or gallops GI: Other: soft nontender nondistended normoactive bowel sounds Extrem: Other: no edema bilaterally Objective Data Active Medications Acetaminophen (Acetaminophen 325 Mg Tablet) 650 mg PO Q6H PRN PRN Reason: Pain, Mild (Pain Scale 1-3) Last Admin: 12/02/21 13:27 Dose: 650 mg Documented By: LUIZ Acetaminophen (Acetaminophen 325 Mg Tablet) 650 mg PO ONCE PRN PRN Reason: Pain, Mild (Pain Scale 1-3) Amlodipine Besylate (Amlodipine Besylate 10 Mg Tablet) 10 mg PO DAILY [facility]; Protocol Last Admin: 12/04/21 11:44 Dose: 10 mg Documented By: MAYUR Aspirin (Aspirin 81 Mg Tab.Chew) 81 mg PO DAILY [facility] Last Admin: 12/04/21 11:44 Dose: 81 mg Documented By: MAYUR Atorvastatin Calcium (Atorvastatin Calcium 80 Mg Tablet) 80 mg PO DAILY [facility] Last Admin: 12/04/21 11:44 Dose: 80 mg Documented By: MAYUR Cyanocobalamin (Cyanocobalamin (Vitamin B-12) 1,000 Mcg Tablet) 1,000 mcg PO DAILY [facility] Last Admin: 12/04/21 11:44 Dose: 1,000 mcg Documented By: MAYUR Docusate Sodium (Docusate Sodium 100 Mg Capsule) 100 mg PO DAILY PRN PRN Reason: Constipation Fentanyl (Fentanyl Citrate/Pf 100 Mcg/2 Ml Vial) 25 mcg IVPUSH Q5M PRN; Protocol PRN Reason: Pain, Moderate (Pain Scale 4-6 Gabapentin (Gabapentin 300 Mg Capsule) 300 mg PO TID [facility] Last Admin: 12/04/21 11:44 Dose: 300 mg Documented By: MAYUR Piperacillin Sod/Tazobactam (Sod 3.375 gm/ Sodium Chloride) 50 mls @ 100 mls/hr IV Q6H [facility] Last Admin: 12/04/21 13:58 Dose: 100 mls/hr Documented By: MAYUR Vancomycin HCl 1,000 mg/ (Sodium Chloride) 270 mls @ 270 mls/hr IV Q12H [facility] Last Infusion: 12/04/21 08:30 Dose: 0 mls/hr Documented By: JOSI Insulin Glargine (Insulin Glargine,Hum.Rec.Anlog 100 Unit/Ml 10 Ml Vial) 50 unit SUBCUT DAILY [facility] Last Admin: 12/04/21 11:43 Dose: 50 unit Documented By: MAYUR Insulin Human Lispro (Insulin Lispro 100 Unit/Ml 3 Ml Vial) 25 unit SUBCUT TIDAC [facility] Last Admin: 12/04/21 12:44 Dose: Not Given Documented By: MAYUR Non-Admin Reason: Patient Refused Morphine Sulfate (Morphine Sulfate 4 Mg/Ml Cartridge) 4 mg IVPUSH Q3H PRN; Protocol PRN Reason: Pain, Severe (Pain Scale 7-10) Ondansetron HCl (Ondansetron Hcl 4 Mg/2 Ml Vial) 4 mg IVPUSH Q8H PRN PRN Reason: Nausea and Vomiting Last Admin: 11/30/21 04:54 Dose: 4 mg Documented By: SOLANGE Oxycodone HCl (Oxycodone Hcl Immed Release 5 Mg Tablet) 5 mg PO Q6H PRN PRN Reason: Pain, Severe (Pain Scale 7-10) Last Admin: 12/04/21 13:56 Dose: 5 mg Documented By: MAYUR Pharmacy Consult (Consult Rx Vancomycin Dosing) 1 each MISCELLANE DAILY PRN PRN Reason: Consult order Pharmacy Consult (Consult Rx Vancomycin Dosing) 1 each MISCELLANE DAILY PRN PRN Reason: Consult order Sodium Chloride (0.9 % Sodium Chloride Flush 3 Ml Syringe) 3 ml IVFLUSH QSHIFT [facility] Last Admin: 12/04/21 07:46 Dose: Not Given Documented By: OJSI Non-Admin Reason: IV Running Labs CBC & Chem 7: 12/04/21 05:14 12/04/21 05:14 Labs: Laboratory Results - last 24 hr 12/03/21 12/03/21 12/03/21 15:28 17:15 19:30 MCV MCH MCHC RDW Plt Count MPV Immature Gran % (Auto) Neut % (Auto) Lymph % (Auto) [place] % (Auto) Eos % (Auto) Baso % (Auto) Lymph # (Auto) [place] # (Auto) Eos # (Auto) Baso # (Auto) Abs Immat Gran (auto) Absolute Neuts (auto) Absolute Nucleated RBC Nucleated RBC % (auto) Anion Gap Estim Creat Clear Calc Estimated GFR POC Glucose 148 H 248 H Fasting Glucose Calcium Total Bilirubin AST ALT Alkaline Phosphatase Total Protein Albumin Random Vancomycin 16.9 12/04/21 12/04/21 12/04/21 05:14 05:14 07:19 MCV 84.8 MCH 26.4 L MCHC 31.2 RDW 15.7 Plt Count 693 H MPV 9.7 Immature Gran % (Auto) 0.6 H Neut % (Auto) 64.0 Lymph % (Auto) 23.2 [place] % (Auto) 7.4 Eos % (Auto) 4.0 Baso % (Auto) 0.8 Lymph # (Auto) 3.9 [place] # (Auto) 1.3 H Eos # (Auto) 0.7 H Baso # (Auto) 0.1 Abs Immat Gran (auto) 0.11 H Absolute Neuts (auto) 10.8 H Absolute Nucleated RBC 0.000 Nucleated RBC % (auto) 0.0 Anion Gap 15 Estim Creat Clear Calc 81.3 Estimated GFR > 60 POC Glucose 146 H Fasting Glucose 175 H Calcium 9.1 D Total Bilirubin 0.4 AST 13 ALT 8 Alkaline Phosphatase 234 H D Total Protein 6.6 Albumin 2.8 L Random Vancomycin 12/04/21 11:41 MCV MCH MCHC RDW Plt Count MPV Immature Gran % (Auto) Neut % (Auto) Lymph % (Auto) [place] % (Auto) Eos % (Auto) Baso % (Auto) Lymph # (Auto) [place] # (Auto) Eos # (Auto) Baso # (Auto) Abs Immat Gran (auto) Absolute Neuts (auto) Absolute Nucleated RBC Nucleated RBC % (auto) Anion Gap Estim Creat Clear Calc Estimated GFR POC Glucose 166 H Fasting Glucose Calcium Total Bilirubin AST ALT Alkaline Phosphatase Total Protein Albumin Random Vancomycin Assessment and Plan (1) Diabetic foot ulcer with osteomyelitis: Status: Acute (2) Diabetes: Status: Acute (3) PAD (peripheral artery disease): Status: Acute Plan 51yo F with DM2, hx osteomyelitis, s/p multiple toe amputations and TMTA, PAD admitted with gangrene of R foot 1.Diabetic foot infection (right) - s/p amputation of right 4th toe, debridement of right foot, incision and drainage of right foot abscess on 11/30/[address] Wang - wound care as per surgery - Vanco/Zosyn)(6) -ID consult: 6 weeks ertapenem as outpatient 2. DM2 - acceptable control on current therapies -Adjust as indicated 3. PAD - ASA/statin 4.HTN - acceptable control on current therapies - continue amlodipine SCDs Full code Will require ongoing hospitalization for IV antibiotics to treat diabetic right foot infection Quality Stroke Does the patient have a stroke diagnosis?: No VTE Prior VTE?: No VTE Risk Level:: Medical - moderate - high VTE Device Contraindication: Treatment Not Indicated VTE Drug Contraindication: N/A - Med Ordered
--- NOTE | 2021-12-04 15:13 | MHC.CM.PN ---
CM UNABLE TO OBTAIN VNA FOR SOC TOMORROW, PT WILL D/C TOMORROW AFTER DOSE OF ABX WITH PLAN FOR SOC W/HVNA WEDNESDAY 12/06 AND [facility] FOR DELIVERY OF IV ABX
[2021-12-04 15:45] LABS: Glucose, Whole Blood 207 mg/dL (60-115)
[2021-12-04 17:50] LABS: Vancomycin Trough 19.1 mcg/mL (10.0-20.0)
--- NOTE | 2021-12-04 17:59 | HE.PHANOTE ---
Vancomycin Dosing Addendum Patient random level increase to 19.1. Reanl function is stable. Due to jump in trough while on same regimen for 3 days, will decrease regimen to Vancomycin 750 mg Q24H. Will get a trough in 24 hours to determine efficacy of decreased dose. Hedy Cueva, PharmD
[2021-12-04] MEDS: vancomycin HCL 750 MG in 0.9 % Sodium Chloride 250 ML 265 MG IV (18:38)
[2021-12-04 20:11] LABS: Glucose, Whole Blood 229 mg/dL (60-115)
[2021-12-05] MEDS: Piperacillin Sodium/Tazobactam 3.375 GM in 0.9 % Sodium Chloride 50 ML IV ×2 (01:29→08:01)
[2021-12-05] MEDS: oxyCODONE HCl Immed Release 5 MG TABLET PO ×2 (01:29→12:31)
[2021-12-05 03:14] VITALS: BP 140/66; PULSE 76; RESP 16; TEMP 36.6; O2SAT 97
[2021-12-05 05:57] LABS: MANUAL DIFF FLAG NO
[2021-12-05] MEDS: vancomycin HCL 750 MG in 0.9 % Sodium Chloride 250 ML 265 MG IV (06:25)
[2021-12-05 06:30] LABS: Alanine Aminotransferase 9 U/L (0-31); Albumin Level 2.8 g/dL (3.5-5.0); Alkaline Phosphatase 224 U/L (39-117); Anion Gap 15 (12-20); Aspartate Amino Transferase 12 U/L (5-31); Bilirubin Total 0.2 mg/dL (0.0-1.0); Blood Urea Nitrogen 17 mg/dL (9-16); Calcium 8.6 mg/dL (8.4-10.2); Carbon Dioxide 25 mmol/L (22-29); Chloride 100 mmol/L (96-108); Creatinine Clr Calc Pharmacy 71.3; Estimated Glomerular Filt Rate > 60; Glucose Fasting 304 mg/dL (60-99); Potassium 4.8 mmol/L (3.3-5.1); Sodium 135 mmol/L (135-145); Total Protein 6.6 g/dL (6.5-8.0)
[2021-12-05 06:39] LABS: Basophils Absolute Auto 0.2 X10*3/uL (0.0-0.2); Eosinophils Absolute Auto 0.6 X10*3/uL (0.0-0.4); Eosinophils Percent Auto 3.6 % (0-4); Hematocrit 28.4 % (37.0-47.0); Imm Gran Abs Auto 0.08 X10*3/uL (0.00-0.03); Imm Gran Pct Auto 0.5 % (0.0-0.4); Lymphocytes Absolute Auto 3.6 X10*3/uL (1.2-4.9); Lymphocytes Percent Auto 21.8 % (20-40); Mean Corpuscular HGB Conc 31.7 g/dl (31.0-35.0); Mean Corpuscular Hemoglobin 26.9 pg (27.0-33.0); Mean Corpuscular Volume 84.8 fL (80.0-98.0); Mean Platelet Volume 9.9 fL (9.4-12.3); Monocytes Absolute Auto 1.2 X10*3/uL (0.1-1.2); Monocytes Percent Auto 7.3 % (2-11); Neutrophils Absolute Auto 10.9 x10*3/uL (2.0-8.3); Neutrophils Percent Auto 65.8 % (45-73); Platelet Count 677 X10*3/uL (160-400); Red Blood Count 3.35 X10*6/uL (4.20-5.50); Red Cell Distribution Width 15.8 % (11.0-16.0); White Blood Count 16.5 X10*3/uL (4.8-10.8)
[2021-12-05 07:26] LABS: Glucose, Whole Blood 266 mg/dL (60-115)
[2021-12-05 07:30] VITALS: BP 143/65; PULSE 72; RESP 15; TEMP 36.4; O2SAT 99
[2021-12-05] MEDS: Aspirin 81 MG TAB.CHEW PO (08:01)
[2021-12-05] MEDS: Gabapentin 300 MG CAPSULE PO (08:01)
[2021-12-05] MEDS: 0.9 % Sodium Chloride Flush 3 ML SYRINGE IVFLUSH (08:01)
[2021-12-05] MEDS: amLODIPine Besylate 10 MG TABLET PO (08:01)
[2021-12-05] MEDS: Cyanocobalamin (Vitamin B-12) 1,000 MCG TABLET 1000 MCG PO (08:01)
[2021-12-05] MEDS: Atorvastatin Calcium 80 MG TABLET PO (08:01)
[2021-12-05] MEDS: Insulin Glargine,Hum.rec.anlog 100 UNIT/ML 10 ML VIAL 50 UNIT SUBCUT (08:02)
[2021-12-05] MEDS: Insulin Lispro 100 UNIT/ML 3 ML VIAL SUBCUT ×2 (08:03→12:31)
--- NOTE | 2021-12-05 08:41 | P.CDIC_ITS ---
CDI Concurrent Query Documentation Clarification: PHYSICIAN'S DOCUMENTATION REQUEST Date of Query: 12/05/21 0841 Patient Name: Staci Shirley Admit Date: 11/29/21 Dear Doctor, A review of the medical record indicates additional documentation may be needed. Please review below and update the documentation accordingly. Clinical Indicators: Risk Factors/Clinical Indicators/Treatments Neuropathy, Gabapentin Type 2 diabetes with complications. Please clarify the following regarding Diabetes Mellitus (DM): Specifics to: Type 2 Diabetes mellitus with peripheral neuropathy Type 2 Diabetes mellitus with polyneuropathy Type 2 Diabetes mellitus with autonomic neuropathy * Other, please specify if known * Unable to determine Use of terms such as suspected, likely, concern for, or probable (associated with a specific diagnosis that is being evaluated, monitored, or treated as if it exists) are acceptable and can be coded in the inpatient setting, when documented at the time of discharge. Thank you, Edith Harrison [facility], CDIS Extension: [phone] Please use your independent medical judgment in providing your response. THIS QUERY IS PART OF THE PERMANENT MEDICAL RECORD Provider Response: Other Other Diagnosis: type 2 diabetes with peripheral neuropathy
[2021-12-05 10:59] VITALS: BP 141/66; PULSE 70; RESP 18; TEMP 36.3; O2SAT 98
--- NOTE | 2021-12-05 11:24 | PM.DS ---
DS: Providers Provider Date of Service: 12/05/21 Date of admission: 11/29/21 19:37 Date of discharge: 12/05/21 Primary care physician: Unknown Physician Consults: 11/29/21 18:47 Consult to General Surgery Stat Consulting Provider: Karthikeyan Wang Reason for consultation: Need foot debridement Has provider been notified: Yes 11/29/21 19:44 Consult to Infectious Diseases Stat Consulting Provider: Reanna Graves Reason for consultation: diabetic foot ulcer Has provider been notified: No 11/29/21 21:07 Consult to Vascular Surgery Routine Consulting Provider: John Peguero Reason for consultation: osteomyelitis-known to you Has provider been notified: No 12/03/21 13:01 Consult to Infectious Diseases Stat Consulting Provider: Reanna Graves Reason for consultation: Diabetic foot infection Has provider been notified: Yes 12/05/21 11:07 Consult to Infectious Diseases Routine Consulting Provider: Reanna Graves Reason for consultation: osteo DS: Diagnosis Discharge Diagnosis (1) Diabetic foot ulcer with osteomyelitis: Status: Acute (2) Diabetes: Status: Acute (3) PAD (peripheral artery disease): Status: Acute DS: Summary Hospital Course Hospital Course: 51-year-old female with past medical history of diabetes, history of amputation of left foot secondary to osteomyelitis, CHF, chronic osteomyelitis, HTN, neuropathy, P AD, type 2 diabetes , history of VRE, presents to the hospital with complaints of right foot infection.? Patient reports that she was going to wound care clinic as well as Dr. Jurado office with planned surgery for osteomyelitis of 5th toe on the right on the 16th of the month, but she has developed significant pain in her right foot, as well as draining at the sole of the foot and decided to come to the ED instead.? She denies any fever no chills, reports the pain is severe,, nonradiating, patient denies any chest pain, no abdominal pain nausea or vomiting, no diarrhea constipation, no urinary symptoms. Labs are significant for WBC count of 23, hemoglobin of 9.3, hematocrit 30.5, Right foot x-ray showed osteomyelitis of left 5th metatarsal with amputation of left toe beyond the MTP joint, there is soft tissue gas seen adjacent to the 4th proximal 4th toe likely infectious process, Hospital Course Admitted hospital; started on IV vancomycin Zosyn. Seen in consultation by surgery and on 11/30/21 underwent a right foot 4th toe amputation as well as debridement of the 5th metatarsal. Patient continued on IV antibiotics postop was seen in consultation by Infectious Disease. Id recommended ertapenem 1 g daily for 6 weeks. Given 1st dose here without issue. Will be discharged to follow-up with surgery and primary care Time Spent with Patient Time attestation: Total time spent providing and/or coordinating discharge services: Discharge coordination time: Greater than 30 minutes Quality: Safe Use of Opioids Does Pt have an Active Cancer Diagnosis on the Problem List?: No Quality: Stroke Does the patient have a stroke diagnosis?: No Physical Exam Vital Signs: Vital Signs: Last Vital Signs Temp 97.3 F 12/05/21 10:59 Pulse 70 12/05/21 10:59 Resp 18 12/05/21 10:59 BP 141/66 H 12/05/21 10:59 Pulse Ox 98 12/05/21 10:59 O2 Del Method 12/05/21 10:59 O2 Flow Rate 2 11/30/21 13:02 Oxygen Flow Rate 0 12/01/21 12:22 BMI result Body Mass Index 36.0 Const: Other: no acute distress Resp: Other: clear to auscultation bilaterally no rales rhonchi or wheezes Cardio: Other: no S4; positive S1-S2; no S3 murmurs rubs or gallops GI: Other: soft nontender nondistended normoactive bowel sounds Extrem: Other: no edema bilaterally DS: Data Data Completed and Pending Completed studies during hospitalization [Text1]: Pending at discharge 11/30/21 11:41 Surgical [PTH] Routine Procedures Fluoroscopy of Aorta and Bilateral Lower Extremity Arteries (02/11/21) Insertion of Infusion Device into Superior Vena Cava, Percutaneous Approach (06/16/21) Labs on day of discharge: Laboratory Results - last 24 hr 12/04/21 12/04/21 12/04/21 11:41 15:14 16:55 WBC RBC Hgb Hct MCV MCH MCHC RDW Plt Count MPV Immature Gran % (Auto) Neut % (Auto) Lymph % (Auto) [place] % (Auto) Eos % (Auto) Baso % (Auto) Lymph # (Auto) [place] # (Auto) Eos # (Auto) Baso # (Auto) Abs Immat Gran (auto) Absolute Neuts (auto) Absolute Nucleated RBC Nucleated RBC % (auto) Sodium Potassium Chloride Carbon Dioxide Anion Gap BUN Creatinine Estim Creat Clear Calc Estimated GFR POC Glucose 166 H 207 H Fasting Glucose Calcium Total Bilirubin AST ALT Alkaline Phosphatase Total Protein Albumin Vancomycin Trough 19.1 12/04/21 12/05/21 12/05/21 19:57 05:11 05:11 WBC 16.5 H RBC 3.35 L Hgb 9.0 L Hct 28.4 L MCV 84.8 MCH 26.9 L MCHC 31.7 RDW 15.8 Plt Count 677 H MPV 9.9 Immature Gran % (Auto) 0.5 H Neut % (Auto) 65.8 Lymph % (Auto) 21.8 [place] % (Auto) 7.3 Eos % (Auto) 3.6 Baso % (Auto) 1.0 Lymph # (Auto) 3.6 [place] # (Auto) 1.2 Eos # (Auto) 0.6 H Baso # (Auto) 0.2 Abs Immat Gran (auto) 0.08 H Absolute Neuts (auto) 10.9 H Absolute Nucleated RBC 0.000 Nucleated RBC % (auto) 0.0 Sodium 135 Potassium 4.8 Chloride 100 Carbon Dioxide 25 Anion Gap 15 BUN 17 H Creatinine 0.98 Estim Creat Clear Calc 71.3 Estimated GFR > 60 POC Glucose 229 H Fasting Glucose 304 H Calcium 8.6 Total Bilirubin 0.2 AST 12 ALT 9 Alkaline Phosphatase 224 H Total Protein 6.6 Albumin 2.8 L Vancomycin Trough 12/05/21 07:13 WBC RBC Hgb Hct MCV MCH MCHC RDW Plt Count MPV Immature Gran % (Auto) Neut % (Auto) Lymph % (Auto) [place] % (Auto) Eos % (Auto) Baso % (Auto) Lymph # (Auto) [place] # (Auto) Eos # (Auto) Baso # (Auto) Abs Immat Gran (auto) Absolute Neuts (auto) Absolute Nucleated RBC Nucleated RBC % (auto) Sodium Potassium Chloride Carbon Dioxide Anion Gap BUN Creatinine Estim Creat Clear Calc Estimated GFR POC Glucose 266 H Fasting Glucose Calcium Total Bilirubin AST ALT Alkaline Phosphatase Total Protein Albumin Vancomycin Trough Discharge Plan Discharge Patient Disposition: Home Health Service Discharge Diagnosis: diabetic foot infection with osteomyelitis Referrals: [facility] [Other] - 1 Day (ANTIBIOTIC HOME DELIVERY) [facility] [Outside] - 1 Day (HALF-WAY FOR IV ABX AND DRESSING CHANGES) Physician,Unknown J [Primary Care Provider] - 1 Week Discharge Medications: New oxycodone 5 mg Tablet 5 mg PO Q6H PRN (Reason: Pain, Severe (Pain Scale 7-10)) Qty: 20 0RF Rx Instructions: Partial Fill upon patient request. ertapenem 1 gram recon soln 1 g IM DAILY Qty: 42 0RF Continued mecobalamin (vitamin B12) 1,000 mcg tablet,disintegrating 1,000 mcg sublingual DAILY Qty: 30 2RF Rx Instructions: place tablet under tongue and allow to dissolve for at least30 secs before swallowing insulin aspart U-100 [Novolog U-100 Insulin aspart] 100 unit/mL solution 25 unit subcut TIDAC gabapentin 300 mg capsule 1 cap PO TID amlodipine 10 mg tablet 1 tab PO DAILY aspirin 81 mg Tablet,Chewable 81 mg PO DAILY insulin glargine [Lantus U-100 Insulin] 100 unit/mL solution 90 unit subcut DAILY atorvastatin 80 mg Tablet 80 mg PO DAILY (DME) blood-glucose meter [FreeStyle [place] Lite] Kit See Rx Instructions .ROUTE TID Qty: 1 Rx Instructions: As directed Discharge Orders: Discharge Order (Routine); Ordered 12/05/21 Ordered By: Wilmer Thompson Diet: Advance to usual diet Activity on Discharge: As tolerated Stand Alone Forms: Patient Portal Discharge page Care Plan Goals: dry Kerlix gauze with Reyes wrap change daily Health Concerns: complete course of ertapenem with VNA as ordered Plan of Treatment: resume all pre-hospital meds. Follow-up with her PCP as scheduled. Follow-up with surgery in 2 weeks Assessment: see discharge summary
--- NOTE | 2021-12-05 11:35 | MHC.CM.PN ---
PT MEDCALLY CLEARED FOR D/C HOME W/[facility] AND [facility] FOR IV ABX AND DRESSING CHANGES, PT REPORTS HER NIECE WILL ASSIST W/BOTH AND PT WILL ARRANGE TRANSPORT.
[2021-12-05 11:48] LABS: Glucose, Whole Blood 226 mg/dL (60-115)
[2021-12-05 11:56] VITALS: O2SAT 98
[2021-12-05] MEDS: Ertapenem Sodium 1 GM in 0.9 % Sodium Chloride 50 ML IV (12:31)
--- NOTE | 2021-12-05 12:34 | PM.CNGS ---
History of Present Illness Consult details Consult date: 12/05/21 Reason for consult: other (pad) Narrative: Very pleasant 51-year-old female presents for vascular follow-up. She was admitted to the hospital with nonhealing toe an abscess. She subsequently underwent debridement toe amputation and drainage of abscesses. Patient reports that she is doing fairly well. No significant pain or discomfort. Review of Systems Review of Systems: Yes all other systems are reviewed and are negative Constitutional: Constitutional: Reports no additional constitutional complaints ENT: Reports Normal hearing present Cardiovascular: Cardiovascular: Denies chest pain, Denies chest pain at rest, Denies chest pain with activity and Denies pedal edema Respiratory: Respiratory: Denies cough Gastrointestinal: Gastrointestinal: Denies abdominal pain Musculoskeletal: Musculoskeletal: Denies abnormal gait, Denies muscle cramps and Denies radiating pain into limb Integumentary/Breasts: Skin/Breast: Denies skin ulcer and Denies wounds Neurologic: Reports Normal hearing present and Denies abnormal gait Psychiatric: Psychiatric: Reports no additional psychiatric complaints [facility] Past Medical History Medical History (Updated 12/04/21 @ 14:12 by Wilmer Thompson DO) Abscess Amputated toe of left foot Amputation of left foot BMI 39.0-39.9,adult Chronic heart failure with preserved ejection fraction (HFpEF) Chronic osteomyelitis of foot Diabetes Diabetic foot infection Hyperlipidemia Hypertension Insulin dependent diabetes mellitus Neuropathy Obesity Osteomyelitis PAD (peripheral artery disease) Type 2 diabetes mellitus with unspecified complications Vitamin B12 deficiency VRE (vancomycin resistant enterococcus) culture positive Family History Family History Mother Diabetes Hypertension Disk prolapse Father Diabetes Hypertension Sister No problems noted. Brother No problems noted. Daughter No problems noted. Son No problems noted. Surgical History Surgical History H/O spinal fusion History of amputation of left foot History of section History of tubal ligation Social History Social History Household Members: Spouse Household Members Other:: Housing: Apartment Do you presently have visiting nurse or other home services: Yes Alcohol intake: never Patient Tobacco Use Status: Never used Tobacco e-Cigarette/Vaping Use: Never Used Second Hand Smoke Exposure: No Use of substances other than those prescribed or required for medical reasons: No Currently Displaying Signs/Symptoms of Drug Intoxication Withdrawal: No Any prior treatment program specific to substance use: No Have you been hit, kicked, punched, or otherwise hurt by someone within the past year? If so, by whom?: No Do you feel safe in your current relationship?: Yes Is there a partner from a previous relationship who is making you feel unsafe now?: No Are you made to feel afraid or neglected: No Holiness Healthcare Practices: mu-ism Are you DNR?: No Advance Directives: Yes Advance Directives Information Provided: No Advance Directives on File: Yes Advance Directives Date on File: 02/15/21 Do you have thoughts of harming others: None Do you have a plan to hurt others: No Plan Recently lost weight without trying: No How much weight loss: Not applicable Eating poorly because of decreased appetite: No Nutrition screen score: 0 Nutrition Risks: No Nutritional Risk Patient : No : No Poor oral hygiene: No service: No Current occupational status: unemployed Meds Allergies Allergy/AdvReac Type Severity Reaction Status Date / Time No Known Allergies Allergy Verified 10/30/21 14:37 [No Known Allergies*] Active Medications: Current Medications Acetaminophen (Acetaminophen 325 Mg Tablet) 650 mg PO Q6H PRN PRN Reason: Pain, Mild (Pain Scale 1-3) Last Admin: 12/02/21 13:27 Dose: 650 mg Acetaminophen (Acetaminophen 325 Mg Tablet) 650 mg PO ONCE PRN PRN Reason: Pain, Mild (Pain Scale 1-3) Amlodipine Besylate (Amlodipine Besylate 10 Mg Tablet) 10 mg PO DAILY [facility]; Protocol Last Admin: 12/05/21 08:01 Dose: 10 mg Aspirin (Aspirin 81 Mg Tab.Chew) 81 mg PO DAILY [facility] Last Admin: 12/05/21 08:01 Dose: 81 mg Atorvastatin Calcium (Atorvastatin Calcium 80 Mg Tablet) 80 mg PO DAILY [facility] Last Admin: 12/05/21 08:01 Dose: 80 mg Cyanocobalamin (Cyanocobalamin (Vitamin B-12) 1,000 Mcg Tablet) 1,000 mcg PO DAILY [facility] Last Admin: 12/05/21 08:01 Dose: 1,000 mcg Docusate Sodium (Docusate Sodium 100 Mg Capsule) 100 mg PO DAILY PRN PRN Reason: Constipation Gabapentin (Gabapentin 300 Mg Capsule) 300 mg PO TID [facility] Last Admin: 12/05/21 08:01 Dose: 300 mg Insulin Glargine (Insulin Glargine,Hum.Rec.Anlog 100 Unit/Ml 10 Ml Vial) 50 unit SUBCUT DAILY [facility] Last Admin: 12/05/21 08:02 Dose: 50 unit Insulin Human Lispro (Insulin Lispro 100 Unit/Ml 3 Ml Vial) 0 unit SUBCUT QIDACHS [facility]; Protocol Last Admin: 12/05/21 08:03 Dose: 6 unit Morphine Sulfate (Morphine Sulfate 4 Mg/Ml Cartridge) 4 mg IVPUSH Q3H PRN; Protocol PRN Reason: Pain, Severe (Pain Scale 7-10) Ondansetron HCl (Ondansetron Hcl 4 Mg/2 Ml Vial) 4 mg IVPUSH Q8H PRN PRN Reason: Nausea and Vomiting Last Admin: 11/30/21 04:54 Dose: 4 mg Oxycodone HCl (Oxycodone Hcl Immed Release 5 Mg Tablet) 5 mg PO Q6H PRN PRN Reason: Pain, Severe (Pain Scale 7-10) Last Admin: 12/05/21 01:29 Dose: 5 mg Pharmacy Consult (Consult Rx Vancomycin Dosing) 1 each MISCELLANE DAILY PRN PRN Reason: Consult order Pharmacy Consult (Consult Rx Vancomycin Dosing) 1 each MISCELLANE DAILY PRN PRN Reason: Consult order Sodium Chloride (0.9 % Sodium Chloride Flush 3 Ml Syringe) 3 ml IVFLUSH [facility] Last Admin: 12/05/21 08:01 Dose: 3 ml Home Medications Medication Instructions Recorded Confirmed Last Taken Type amlodipine 10 mg tablet 1 tab PO DAILY 03/19/20 11/29/21 11/28/21 History gabapentin 300 mg capsule 1 cap PO TID 03/19/20 11/29/21 11/28/21 History insulin aspart U-100 100 unit/mL 25 unit subcut TIDAC 03/19/20 11/29/21 11/29/21 History subcutaneous solution (Novolog U-100 Insulin aspart) aspirin 81 mg chewable tablet 81 mg PO DAILY 06/17/21 11/29/21 11/28/21 History blood-glucose meter (FreeStyle #1 ea 07/03/21 11/28/21 History [place] Lite kit) insulin glargine 100 unit/mL 90 unit subcut DAILY 09/13/21 11/29/21 11/28/21 History subcutaneous solution (Lantus U-100 Insulin) atorvastatin 80 mg tablet 80 mg PO DAILY 11/29/21 11/29/21 11/28/21 History Physical Exam Vital Signs: Vital Signs: Last Vital Signs Temp 97.3 F 12/05/21 10:59 Pulse 70 12/05/21 10:59 Resp 18 12/05/21 10:59 BP 141/66 H 12/05/21 10:59 Pulse Ox 98 12/05/21 11:56 O2 Del Method 12/05/21 11:56 O2 Flow Rate 2 11/30/21 13:02 Oxygen Flow Rate 0 12/01/21 12:22 BMI result Body Mass Index 36.0 Const: General: cooperative, healthy appearing and comfortable Orientation/consciousness: oriented to person, oriented to place and oriented to time HEENT: Head: Yes normal to inspection Neck: Neck: Yes normal visual inspection Carotids: no bruits Chest: Chest palpation & inspection: normal inspection of the chest Resp: Effort & Inspection: normal respiratory effort and able to speak in complete sentences Auscultation: clear to auscultation bilaterally, no crackles, no rales, no rhonchi and no wheezes Cardio: Rate: regular rate Rhythm: regular rhythm Heart sounds: S1 normal heart sound present and S2 normal heart sound present Bruits: no carotid bruits Peripheral pulses: dorsalis pedis present (Bilateral DP signals) GI: Inspection: Yes normal to inspection Skin: Wounds: wounds noted (Right foot dressing clean dry intact) Hair: normal Neuro: General: oriented to person, oriented to place and oriented to time Cranial nerves: Yes CN's II-XII intact bilaterally and Yes Normal hearing present Cognition (Neuro): normal cognition Motor exam (neuro): 5/5 motor strength present throughout Extrem: Other: venous exam: No significant superficial varicosities or spider telangiectasias, minimal edema General: No clubbing, No cyanosis and No edema Psych: Appearance: grossly normal Mental Status: mental status grossly normal Speech and movement: Normal speech and movement present Results Labs Result diagrams: 12/05/21 05:11 12/05/21 05:11 Labs: Abnormal lab results 12/04/21 12/04/21 12/05/21 Range/Units 15:14 19:57 05:11 WBC 16.5 H (4.8-10.8) X10*3/uL RBC 3.35 L (4.20-5.50) X10*6/uL Hgb 9.0 L (12.0-16.0) g/dl Hct 28.4 L (37.0-47.0) % MCH 26.9 L (27.0-33.0) pg Plt Count 677 H (160-400) X10*3/uL Immature Gran % (Auto) 0.5 H (0.0-0.4) % Eos # (Auto) 0.6 H (0.0-0.4) X10*3/uL Abs Immat Gran (auto) 0.08 H (0.00-0.03) X10*3/uL Absolute Neuts (auto) 10.9 H (2.0-8.3) x10*3/uL BUN (9-16) mg/dL POC Glucose 207 H 229 H (60-115) mg/dL Fasting Glucose (60-99) mg/dL Alkaline Phosphatase (39-117) U/L Albumin (3.5-5.0) g/dL 12/05/21 12/05/21 12/05/21 Range/Units 05:11 07:13 11:05 WBC (4.8-10.8) X10*3/uL RBC (4.20-5.50) X10*6/uL Hgb (12.0-16.0) g/dl Hct (37.0-47.0) % MCH (27.0-33.0) pg Plt Count (160-400) X10*3/uL Immature Gran % (Auto) (0.0-0.4) % Eos # (Auto) (0.0-0.4) X10*3/uL Abs Immat Gran (auto) (0.00-0.03) X10*3/uL Absolute Neuts (auto) (2.0-8.3) x10*3/uL BUN 17 H (9-16) mg/dL POC Glucose 266 H 226 H (60-115) mg/dL Fasting Glucose 304 H (60-99) mg/dL Alkaline Phosphatase 224 H (39-117) U/L Albumin 2.8 L (3.5-5.0) g/dL Short CBC 12/05/21 Range/Units 05:11 WBC 16.5 H (4.8-10.8) X10*3/uL Hgb 9.0 L (12.0-16.0) g/dl Hct 28.4 L (37.0-47.0) % Plt Count 677 H (160-400) X10*3/uL BMP 12/05/21 05:11 Sodium 135 Potassium 4.8 Chloride 100 Carbon Dioxide 25 BUN 17 H Creatinine 0.98 Calcium 8.6 Liver Function 12/05/21 Range/Units 05:11 Total Bilirubin 0.2 (0.0-1.0) mg/dL AST 12 (5-31) U/L ALT 9 (0-31) U/L Alkaline Phosphatase 224 H (39-117) U/L Albumin 2.8 L (3.5-5.0) g/dL All other labs normal. Assessment and Plan (1) PAD (peripheral artery disease): Status: Acute Plan In short patient is doing extremely well in terms of her peripheral vascular disease. Amputation seems to be healing well. She can see me in approximately 2 weeks upon discharge. Thank you for allowing us to participate in her care. If there are questions or concerns please do not hesitate to contact us. Procedures Date of Service Date of Service: 12/05/21
--- NOTE | 2021-12-05 14:55 | P.F2F_ITS ---
Service Date Service Date: 12/05/21 Encounter Date of encounter: 12/05/21 Encounter: acute hospitalization Reasons for Services Signs and symptoms assessed: osteomyelitis of diabetic foot ulcer with amputation of toe Reason for group home: wound care, diabetic teaching and medication management Reason for physical therapy: home safety and mobility and other ( gait training after amputation) Homebound: Leaving the home is medically contraindicated at this time without the asist of a device and/or another person due th the listed conditions above and below. Reason homebound: unsteady gait / fall risk, leg weakness and unable to drive Certification: Based on the above findings, I certify that this patient is confined to the home and needs intermittent group home care, physical therapy and/or speech therapy, or continues to need occupational therapy. The patient is under my care, and I have initiated the establishment of the plan of care. The patient will be followed by a physician who will periodically review the plan of care.
== END 2021-12-05 14:47 | disposition home health service (06) | DRG 314 ==
LOC: HO.ED 18:49 → HO.EDOVER 19:52 → HO.S3 11-30 11:59
PROVIDERS: Family Medicine; Surgery; Admitting Provider Internal Medicine; Emergency Provider Emergency Medicine; PCP Internal Medicine; Visit Provider Hospitalist
DX: E11.69 Type 2 diabetes mellitus with other specified complication (principal); A48.0 Gas gangrene; E11.52 Type 2 diabetes mellitus with diabetic peripheral angiopathy with gangrene; M86.9 Osteomyelitis, unspecified; E78.5 Hyperlipidemia, unspecified; I10 Essential (primary) hypertension; L02.611 Cutaneous abscess of right foot; E11.42 Type 2 diabetes mellitus with diabetic polyneuropathy; E11.649 Type 2 diabetes mellitus with hypoglycemia without coma; Z20.822 Contact with and (suspected) exposure to COVID-19; Z98.1 Arthrodesis status; Z79.4 Long term (current) use of insulin; Z79.82 Long term (current) use of aspirin; Z79.899 Other long term (current) drug therapy
CPT/HCPCS: 36415; 36573; 73630; 80048; 80053; 80076; 80202; 82565; 82947; 83605; 85025; 85027; 85652; 86140; 87040; 87635; 88305; 88311; 97116; 97163; 99285; C1751; J0690; J0692; J1335; J1650; J2250; J2270; J2405; J2543; J2795; J3010; J3370

== ENCOUNTER 2021-12-12 15:29 | Outpatient (REF) | payer OTHER, SELFPAY ==
[2021-12-12 15:31] LABS: MANUAL DIFF FLAG NO
[2021-12-12 15:36] LABS: Basophils Absolute Auto 0.1 X10*3/uL (0.0-0.2); Basophils Percent Auto 1.1 % (0-2); Eosinophils Absolute Auto 0.2 X10*3/uL (0.0-0.4); Eosinophils Percent Auto 1.4 % (0-4); Hematocrit 31.2 % (37.0-47.0); Hemoglobin 9.7 g/dl (12.0-16.0); Imm Gran Abs Auto 0.04 X10*3/uL (0.00-0.03); Imm Gran Pct Auto 0.3 % (0.0-0.4); Lymphocytes Absolute Auto 2.1 X10*3/uL (1.2-4.9); Mean Corpuscular HGB Conc 31.1 g/dl (31.0-35.0); Mean Corpuscular Hemoglobin 26.5 pg (27.0-33.0); Mean Corpuscular Volume 85.2 fL (80.0-98.0); Mean Platelet Volume 10.3 fL (9.4-12.3); Monocytes Absolute Auto 0.8 X10*3/uL (0.1-1.2); Monocytes Percent Auto 6.2 % (2-11); Neutrophils Absolute Auto 9.3 x10*3/uL (2.0-8.3); Platelet Count 478 X10*3/uL (160-400); Red Blood Count 3.66 X10*6/uL (4.20-5.50); Red Cell Distribution Width 15.1 % (11.0-16.0); White Blood Count 12.5 X10*3/uL (4.8-10.8)
[2021-12-12 16:50] LABS: Anion Gap 20 (12-20); Blood Urea Nitrogen 14 mg/dL (9-16); Calcium 8.7 mg/dL (8.4-10.2); Carbon Dioxide 22 mmol/L (22-29); Chloride 99 mmol/L (96-108); Estimated Glomerular Filt Rate 57; Glucose Random 387 mg/dL (60-115); Potassium 4.2 mmol/L (3.3-5.1); Sodium 137 mmol/L (135-145)
== END 2021-12-12 15:30 | disposition home or self-care (01) ==
LOC: HO.HVNA 15:29
PROVIDERS: Visit Provider Internal Medicine
DX: E11.621 Type 2 diabetes mellitus with foot ulcer (principal)
CPT/HCPCS: 36415; 80048; 85025

== ENCOUNTER 2021-12-19 11:55 | Outpatient (REF) | payer OTHER, SELFPAY ==
[2021-12-19 12:00] LABS: MANUAL DIFF FLAG NO
[2021-12-19 12:05] LABS: Basophils Absolute Auto 0.1 X10*3/uL (0.0-0.2); Basophils Percent Auto 1.3 % (0-2); Eosinophils Absolute Auto 0.6 X10*3/uL (0.0-0.4); Eosinophils Percent Auto 5.4 % (0-4); Hematocrit 31.8 % (37.0-47.0); Hemoglobin 10.1 g/dl (12.0-16.0); Imm Gran Abs Auto 0.04 X10*3/uL (0.00-0.03); Imm Gran Pct Auto 0.4 % (0.0-0.4); Lymphocytes Percent Auto 27.2 % (20-40); Mean Corpuscular HGB Conc 31.8 g/dl (31.0-35.0); Mean Corpuscular Hemoglobin 26.7 pg (27.0-33.0); Mean Corpuscular Volume 84.1 fL (80.0-98.0); Mean Platelet Volume 11.3 fL (9.4-12.3); Monocytes Percent Auto 8.9 % (2-11); Neutrophils Absolute Auto 6.2 x10*3/uL (2.0-8.3); Neutrophils Percent Auto 56.8 % (45-73); Platelet Count 317 X10*3/uL (160-400); Red Blood Count 3.78 X10*6/uL (4.20-5.50); Red Cell Distribution Width 14.5 % (11.0-16.0); White Blood Count 10.8 X10*3/uL (4.8-10.8)
[2021-12-19 12:46] LABS: Anion Gap 16 (12-20); Blood Urea Nitrogen 12 mg/dL (9-16); Calcium 8.5 mg/dL (8.4-10.2); Carbon Dioxide 25 mmol/L (22-29); Chloride 102 mmol/L (96-108); Estimated Glomerular Filt Rate > 60; Glucose Random 160 mg/dL (60-115); Potassium 4.4 mmol/L (3.3-5.1); Sodium 139 mmol/L (135-145)
== END 2021-12-19 11:56 | disposition home or self-care (01) ==
LOC: HO.HVNA 11:55
PROVIDERS: Visit Provider Internal Medicine
DX: T87.89 Other complications of amputation stump (principal)
CPT/HCPCS: 36415; 80048; 85025

== ENCOUNTER 2021-12-26 12:57 | Outpatient (REF) | payer OTHER, SELFPAY ==
[2021-12-26 12:59] LABS: MANUAL DIFF FLAG NO
[2021-12-26 13:12] LABS: Basophils Absolute Auto 0.1 X10*3/uL (0.0-0.2); Basophils Percent Auto 1.1 % (0-2); Eosinophils Absolute Auto 0.4 X10*3/uL (0.0-0.4); Eosinophils Percent Auto 4.1 % (0-4); Hematocrit 34.4 % (37.0-47.0); Hemoglobin 10.5 g/dl (12.0-16.0); Imm Gran Abs Auto 0.03 X10*3/uL (0.00-0.03); Imm Gran Pct Auto 0.3 % (0.0-0.4); Lymphocytes Absolute Auto 2.5 X10*3/uL (1.2-4.9); Lymphocytes Percent Auto 24.1 % (20-40); Mean Corpuscular HGB Conc 30.5 g/dl (31.0-35.0); Mean Corpuscular Hemoglobin 26.2 pg (27.0-33.0); Mean Corpuscular Volume 85.8 fL (80.0-98.0); Mean Platelet Volume 11.3 fL (9.4-12.3); Monocytes Absolute Auto 0.8 X10*3/uL (0.1-1.2); Monocytes Percent Auto 7.5 % (2-11); Neutrophils Absolute Auto 6.6 x10*3/uL (2.0-8.3); Neutrophils Percent Auto 62.9 % (45-73); Platelet Count 370 X10*3/uL (160-400); Red Blood Count 4.01 X10*6/uL (4.20-5.50); Red Cell Distribution Width 13.9 % (11.0-16.0); White Blood Count 10.4 X10*3/uL (4.8-10.8)
[2021-12-26 13:54] LABS: Anion Gap 17 (12-20); Blood Urea Nitrogen 9 mg/dL (9-16); Calcium 8.5 mg/dL (8.4-10.2); Carbon Dioxide 24 mmol/L (22-29); Chloride 100 mmol/L (96-108); Estimated Glomerular Filt Rate > 60; Glucose Random 225 mg/dL (60-115); Potassium 4.1 mmol/L (3.3-5.1); Sodium 137 mmol/L (135-145)
== END 2021-12-26 12:58 | disposition home or self-care (01) ==
LOC: HO.HVNA 12:57
PROVIDERS: Visit Provider Internal Medicine
DX: T87.89 Other complications of amputation stump (principal)
CPT/HCPCS: 36415; 80048; 85025

== ENCOUNTER 2022-01-02 13:16 | Outpatient (REF) | payer OTHER, SELFPAY ==
[2022-01-02 13:17] LABS: MANUAL DIFF FLAG NO
[2022-01-02 13:21] LABS: Basophils Absolute Auto 0.1 X10*3/uL (0.0-0.2); Basophils Percent Auto 0.9 % (0-2); Eosinophils Absolute Auto 0.4 X10*3/uL (0.0-0.4); Eosinophils Percent Auto 4.1 % (0-4); Hematocrit 35.2 % (37.0-47.0); Hemoglobin 11.1 g/dl (12.0-16.0); Imm Gran Abs Auto 0.03 X10*3/uL (0.00-0.03); Imm Gran Pct Auto 0.3 % (0.0-0.4); Lymphocytes Absolute Auto 2.4 X10*3/uL (1.2-4.9); Lymphocytes Percent Auto 22.7 % (20-40); Mean Corpuscular HGB Conc 31.5 g/dl (31.0-35.0); Mean Corpuscular Hemoglobin 26.5 pg (27.0-33.0); Mean Platelet Volume 11.1 fL (9.4-12.3); Monocytes Absolute Auto 0.7 X10*3/uL (0.1-1.2); Monocytes Percent Auto 6.5 % (2-11); Neutrophils Percent Auto 65.5 % (45-73); Platelet Count 419 X10*3/uL (160-400); Red Blood Count 4.19 X10*6/uL (4.20-5.50); Red Cell Distribution Width 13.6 % (11.0-16.0); White Blood Count 10.7 X10*3/uL (4.8-10.8)
[2022-01-02 13:54] LABS: Anion Gap 16 (12-20); Blood Urea Nitrogen 14 mg/dL (9-16); Calcium 8.9 mg/dL (8.4-10.2); Carbon Dioxide 24 mmol/L (22-29); Chloride 103 mmol/L (96-108); Estimated Glomerular Filt Rate 57; Glucose Random 199 mg/dL (60-115); Potassium 4.3 mmol/L (3.3-5.1); Sodium 139 mmol/L (135-145)
== END 2022-01-02 13:17 | disposition home or self-care (01) ==
LOC: HO.HVNA 13:16
PROVIDERS: Visit Provider Internal Medicine
DX: T87.89 Other complications of amputation stump (principal)
CPT/HCPCS: 36415; 80048; 85025

== ENCOUNTER → 2022-01-07 11:46 | Outpatient (BNVA) | payer OTHER, SELFPAY | PROVIDERS: PCP Internal Medicine; Visit Provider Dietitian, Registered | DX: E11.9 Type 2 diabetes mellitus without complications (principal) | CPT/HCPCS: 97802 ==

== ENCOUNTER 2022-01-09 11:31 | Outpatient (REF) | payer OTHER, SELFPAY ==
[2022-01-09 11:41] LABS: MANUAL DIFF FLAG NO
[2022-01-09 12:01] LABS: Basophils Absolute Auto 0.2 X10*3/uL (0.0-0.2); Basophils Percent Auto 1.3 % (0-2); Eosinophils Absolute Auto 0.5 X10*3/uL (0.0-0.4); Eosinophils Percent Auto 4.6 % (0-4); Hematocrit 36.8 % (37.0-47.0); Hemoglobin 11.7 g/dl (12.0-16.0); Imm Gran Abs Auto 0.02 X10*3/uL (0.00-0.03); Imm Gran Pct Auto 0.2 % (0.0-0.4); Lymphocytes Absolute Auto 3.1 X10*3/uL (1.2-4.9); Lymphocytes Percent Auto 27.3 % (20-40); Mean Corpuscular HGB Conc 31.8 g/dl (31.0-35.0); Mean Corpuscular Hemoglobin 26.1 pg (27.0-33.0); Mean Corpuscular Volume 82.1 fL (80.0-98.0); Mean Platelet Volume 11.3 fL (9.4-12.3); Monocytes Absolute Auto 0.8 X10*3/uL (0.1-1.2); Monocytes Percent Auto 7.1 % (2-11); Neutrophils Absolute Auto 6.7 x10*3/uL (2.0-8.3); Neutrophils Percent Auto 59.5 % (45-73); Platelet Count 467 X10*3/uL (160-400); Red Blood Count 4.48 X10*6/uL (4.20-5.50); Red Cell Distribution Width 13.4 % (11.0-16.0); White Blood Count 11.3 X10*3/uL (4.8-10.8)
[2022-01-09 12:45] LABS: Anion Gap 18 (12-20); Blood Urea Nitrogen 16 mg/dL (9-16); Carbon Dioxide 23 mmol/L (22-29); Chloride 101 mmol/L (96-108); Estimated Glomerular Filt Rate > 60; Glucose Random 226 mg/dL (60-115); Sodium 137 mmol/L (135-145)
== END 2022-01-09 11:32 | disposition home or self-care (01) ==
LOC: HO.HVNA 11:31
PROVIDERS: Visit Provider Internal Medicine
DX: T87.89 Other complications of amputation stump (principal)
CPT/HCPCS: 36415; 80048; 85025

== ENCOUNTER → 2022-01-18 11:13 | Outpatient (BNVA) | payer OTHER, SELFPAY | PROVIDERS: PCP Internal Medicine; Visit Provider Internal Medicine | DX: E11.621 Type 2 diabetes mellitus with foot ulcer (principal); L97.519 Non-pressure chronic ulcer of other part of right foot with unspecified severity; E11.69 Type 2 diabetes mellitus with other specified complication; M86.9 Osteomyelitis, unspecified; Z79.2 Long term (current) use of antibiotics | CPT/HCPCS: 99212 ==

== ENCOUNTER 2022-02-05 14:59 | Inpatient (IN) | payer OTHER, SELFPAY ==
--- NOTE | ~2022-02-05 | XR_ITS ---
EXAMINATION: XR FOOT, RIGHT CLINICAL INFORMATION: Possible fourth and fifth metacarpal infection. COMPARISON: Right foot radiographs dated 09/13/2021. TECHNIQUE: AP, lateral, and oblique views of the right foot. FINDINGS: Postsurgical changes are seen in the fourth and fifth metatarsals with mild distal irregularity in both metatarsals. The remainder the digits are intact. The tarsal bones are normally aligned. A soft tissue wound is seen along the plantar aspect of the soft tissues. XR/XR foot RT 2V IMPRESSION: Irregularity in the distal aspects of the fourth and fifth metatarsals may be postsurgical, but demonstrates some irregularity. Osteomyelitis cannot be excluded.
--- NOTE | ~2022-02-05 | MR_ITS ---
EXAMINATION: MRI OF THE RIGHT FOOT WITH AND WITHOUT CONTRAST CLINICAL INFORMATION: Question osteomyelitis. COMPARISON: 06/17/2021 TECHNIQUE: Multiplanar MR imaging was obtained through the right foot on a 1.5 Betty magnet before and after intravenous administration of contrast material. The total of 10 mL of Gadavist was administered. 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 The Lisfranc ligament is disrupted. The 1st metatarsal base, as an example, is dorsally/proximally displaced by 1.5 cm with impaction of the plantar half of its articular surface on the dorsal margin of the medial navicular with articular cortical remodeling. There is similar impaction and fragmentation at the 2nd and 3rd metatarsal bases. Surrounding marrow is edematous at the tarsals and metatarsals with diffusely diminished signal intensity on T1-weighted images as well as enhancement on postcontrast images. Enhancement of the marrow in this region is patchy, likely due to areas of demyelination/necrosis. The cuboid and 1st metatarsal, as an example, demonstrate minimal postcontrast enhancement, possibly due to ischemia or necrosis. There is a small amount of fluid signal along the Lisfranc joint without appreciable surrounding fluid collections. No underlying cystic changes. There is a skin wound at the plantar/medial aspect of the midfoot measuring 1.8 x 2 cm in area, extending from the skin into the underlying subcutaneous fat. An additional wound is suspected at the plantar/medial aspect of the hindfoot, incompletely imaged on this study. The intrinsic foot musculature is edematous with fatty replacement. There is hyperenhancement within much of the intrinsic foot musculature, though areas of hypoenhancement are also noted and may correspond to ischemia or necrosis. The 4th and 5th metatarsals are amputated at the level of the midshafts. There is an associated wound at the lateral aspect of the forefoot with surrounding soft tissue edema signal and enhancement. Edema signal and enhancement are evident within the distal margins of both metatarsals with associated diminished signal intensity on T1-weighted images, concerning for osteomyelitis. Edema signal and enhancement within the 2nd and 3rd metatarsal shafts could be due to stress reactions. No discrete metatarsal fracture lines are identified. A skin wound is present at the plantar/lateral margin of the remaining 3rd toe. There is a fracture at the 3rd toe proximal phalangeal base with intra-articular extension and diffuse marrow edema signal and enhancement. Superimposed osteomyelitis cannot be excluded given the osseous change in this region. No significant joint effusion. Other phalanges are intact. MR/MR foot RT wo/w con IMPRESSION: 1. 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 Although the signal abnormalities in this region are favored to be due in large part to progressive neuropathic arthropathy, superimposed osteomyelitis cannot be completely excluded in the context of adjacent midfoot wounds. No abscess. 2. Osteomyelitis at the distal margins of both 4th and 5th metatarsals. 3. Marrow edema signal and enhancement at the 2nd and 3rd metatarsal shafts, potentially due to stress reactions. No discrete fracture lines. 4. Intra-articular fracture at the 3rd toe proximal phalangeal base. Superimposed osteomyelitis cannot be excluded given the osseous changes in this region in the adjacent skin wound along the plantar/lateral margin of the proximal phalangeal base.
[2022-02-05 15:55] VITALS: BP 145/68; PULSE 99; RESP 18; TEMP 36.1; O2SAT 97; BMI 36.2
[2022-02-05 17:18] LABS: MANUAL DIFF FLAG NO
[2022-02-05 17:19] LABS: Basophils Absolute Auto 0.2 X10*3/uL (0.0-0.2); Basophils Percent Auto 0.9 % (0-2); Eosinophils Absolute Auto 0.5 X10*3/uL (0.0-0.4); Eosinophils Percent Auto 2.7 % (0-4); Hematocrit 34.1 % (37.0-47.0); Hemoglobin 10.8 g/dl (12.0-16.0); Imm Gran Abs Auto 0.06 X10*3/uL (0.00-0.03); Imm Gran Pct Auto 0.3 % (0.0-0.4); Lymphocytes Absolute Auto 2.5 X10*3/uL (1.2-4.9); Lymphocytes Percent Auto 13.7 % (20-40); Mean Corpuscular HGB Conc 31.7 g/dl (31.0-35.0); Mean Corpuscular Hemoglobin 25.5 pg (27.0-33.0); Mean Corpuscular Volume 80.6 fL (80.0-98.0); Mean Platelet Volume 10.3 fL (9.4-12.3); Monocytes Absolute Auto 1.4 X10*3/uL (0.1-1.2); Monocytes Percent Auto 7.7 % (2-11); Neutrophils Absolute Auto 13.6 x10*3/uL (2.0-8.3); Neutrophils Percent Auto 74.7 % (45-73); Platelet Count 594 X10*3/uL (160-400); Red Blood Count 4.23 X10*6/uL (4.20-5.50); Red Cell Distribution Width 13.3 % (11.0-16.0); White Blood Count 18.2 X10*3/uL (4.8-10.8)
[2022-02-05 17:33] LABS: C Reactive Protein 11.43 mg/dL (< or = 0.50)
[2022-02-05 17:34] LABS: Lactic Acid 2.4 mmol/L (0.5-2.0)
[2022-02-05 17:37] LABS: Alanine Aminotransferase 18 U/L (0-31); Albumin Level 3.5 g/dL (3.5-5.0); Alkaline Phosphatase 190 U/L (39-117); Anion Gap 17 (12-20); Aspartate Amino Transferase 32 U/L (5-31); Bilirubin Direct < 0.2 mg/dL (0.0-0.5); Bilirubin Total 0.2 mg/dL (0.0-1.0); Blood Urea Nitrogen 16 mg/dL (9-16); Calcium 9.4 mg/dL (8.4-10.2); Carbon Dioxide 26 mmol/L (22-29); Chloride 99 mmol/L (96-108); Creatinine Clr Calc Pharmacy 53.5; Estimated Glomerular Filt Rate 43; Glucose Random 187 mg/dL (60-115); Lipase 18 U/L (8-78); Potassium 4.4 mmol/L (3.3-5.1); Sodium 138 mmol/L (135-145); Total Protein 7.3 g/dL (6.5-8.0)
[2022-02-05 18:06] LABS: Erythrocyte Sedimentation Rate 96 MM/HR (0-20)
[2022-02-05 18:28] VITALS: BP 120/65; PULSE 96; RESP 20; TEMP 36.5; O2SAT 98
[2022-02-05 19:15] LABS: Reflex Lactate? Lactic Acid Added
--- NOTE | 2022-02-05 19:34 | ED_ITS ---
HPI - Skin/Abscess/Foreign Bdy General Chief complaint: Wound/Laceration Stated complaint: sent from wound clinic Time Seen by Provider: 02/05/22 19:18 Source: patient and old records reviewed Mode of arrival: ambulatory Limitations: no limitations History of Present Illness HPI narrative: 51 yo female hx of HTN, depression, DM, ulcers R foot 4th 5th toe amputation, osteomyelitis, CHF, VRE, PAD has known R foot ulcer completed course of invanz back in november for osteo and has been following with ID. She is currently on doxy. She sees wound care and has [facility] they have noted R lateral ulcer is more red, inflammed and now with yellow thick odorous material coming from it. Sent to ED for failure of oral antibiotics. MD complaint: rash and lesion Onset (ago): month(s) (but much worse over past 24 hours) Tetanus up to date: yes Location: R foot Severity: moderate Quality: aching, dull and constant Pain Consistency: constant Relieving factors: rest Exacerbating factors: palpation and movement Context: other (hx of chronic ulcer on doxy) Associated symptoms: malaise Treatments prior to arrival: antibiotic (on chronic doxy) Related Data Home Medications Medication Instructions Recorded Confirmed amlodipine 10 mg tablet 1 tab PO DAILY 03/19/20 11/29/21 gabapentin 300 mg capsule 1 cap PO TID 03/19/20 11/29/21 insulin aspart U-100 100 unit/mL 25 unit subcut TIDAC 03/19/20 11/29/21 subcutaneous solution (Novolog U-100 Insulin aspart) aspirin 81 mg chewable tablet 81 mg PO DAILY 06/17/21 11/29/21 blood-glucose meter (FreeStyle #1 ea 07/03/21 [place] Lite kit) insulin glargine 100 unit/mL 90 unit subcut DAILY 09/13/21 11/29/21 subcutaneous solution (Lantus U-100 Insulin) atorvastatin 80 mg tablet 80 mg PO DAILY 11/29/21 11/29/21 Previous Rx's Medication Instructions Recorded mecobalamin (vitamin B12) 1,000 1,000 mcg sublingual DAILY #30 tabs 10/30/20 mcg disintegrating tablet,sublingual ertapenem 1 gram solution for 1 g IM DAILY #42 ea 12/05/21 injection oxycodone 5 mg tablet 5 mg PO Q6H PRN Pain, Severe (Pain 08/17/22 Scale 7-10) #20 tabs silver-hydrocolloid dressing 1.2 See Rx Instructions .Route 12/13/21 %-3.5 X 4 (Aquacel-AG) .COMPLEX #10 ea doxycycline hyclate 100 mg tablet 100 mg PO BID 30 days #60 tabs 01/18/22 linezolid 600 mg tablet 600 mg PO BID 30 days #60 tabs 01/18/22 Allergies Allergy/AdvReac Type Severity Reaction Status Date / Time No Known Allergies Allergy Verified 01/18/22 11:19 [No Known Allergies*] Review of Systems Review of Systems: Constitutional : No Fever, No Chills ENT/Mouth : No sore throat, No Rhinorrhea Eyes: No Eye Pain, No Swelling, No Redness Cardiovascular : No Chest Pain, No SOB Respiratory : No Cough, No Sputum Gastrointestinal : No Nausea, No Vomiting, No Diarrhea, No abdominal Pain Genitourinary : No Dysuria, No Hematuria Musculoskeletal : pos joint pain, No Myalgias, No Joint Swelling Skin : No Skin Lesions, positive skin rash Neuro : No Weakness, No Numbness, No Headache Psych : No Anxiety, No Depression Heme/Lymph: No Bruising, No Bleeding,No Lymphadenopathy Endocrine : No Polyuria, No Polydipsia All other systems reviewed and are negative PMFSH Past Medical History Attestation statement: The following information was validated with the patient. Medical History Abscess Amputated toe of left foot Amputation of left foot BMI 39.0-39.9,adult Chronic heart failure with preserved ejection fraction (HFpEF) Chronic osteomyelitis of foot Diabetes Diabetic foot infection Hyperlipidemia Hypertension Insulin dependent diabetes mellitus Neuropathy Obesity Osteomyelitis PAD (peripheral artery disease) Type 2 diabetes mellitus with unspecified complications Vitamin B12 deficiency VRE (vancomycin resistant enterococcus) culture positive Surgical History H/O spinal fusion History of amputation of left foot History of section History of tubal ligation Status post amputation of toe of right foot Family History Family History Mother Diabetes Hypertension Disk prolapse Father Diabetes Hypertension Sister No problems noted. Brother No problems noted. Daughter No problems noted. Son No problems noted. Social History Social History Household Members: Spouse Household Members Other:: Housing: Apartment Do you presently have visiting nurse or other home services: Yes Alcohol intake: never Patient Tobacco Use Status: Never used Tobacco e-Cigarette/Vaping Use: Never Used Second Hand Smoke Exposure: No Advance Directives: Yes Advance Directives on File: Yes Advance Directives Date on File: 02/15/21 service: No Current occupational status: unemployed Physical Exam Vital Signs: Vital Signs: Last Vital Signs Temp 97.7 F 02/05/22 18:28 Pulse 96 02/05/22 18:28 Resp 20 02/05/22 18:28 BP 120/65 02/05/22 18:28 Pulse Ox 98 02/05/22 18:28 O2 Del Method 02/05/22 18:28 BMI result Body Mass Index 36.2 Appearance: Alert. Oriented X3. No acute distress. Eyes: Pupils equal, round and reactive to light. ENT: Pharynx normal. Neck: Normal inspection. Neck supple. CVS: Normal heart rate and rhythm. Pulses normal. Respiratory: No respiratory distress. Breath sounds normal. Abdomen: Soft and nontender. Skin: Skin warm and dry. Normal skin color. Normal skin turgor. Extremities: No lower extremity edema. R foot 4th and 5th toe amputations plantar surface of foot deep ulcer noted mild swelling and erythema noted no sig drainage, R lateral aspect of foot large open draining ulcer - deep thick yellow/greenish purulent exudate with foul odor, reddened erythematous on edges, foot mildly swollen Neuro: Oriented X 3. No motor deficit. No sensory deficit. MDM - Skin/Abscess/Foreign Bdy MDM Narrative Medical decision making narrative: 51 yo female hx of HTN, depression, DM, ulcers R foot 4th 5th toe amputation, osteomyelitis, CHF, VRE, PAD has known R foot ulcer here with worsening R foot wound despite oral antibiotics at this time will need labs, cultures, IVF, IV ertapenem given prior ID recommendations, planned admit Lab Data Result diagrams: 02/05/22 17:08 02/05/22 17:08 Labs: Lab Results 02/05/22 02/05/22 02/05/22 Range/Units 17:08 17:08 17:08 WBC 18.2 H (4.8-10.8) X10*3/uL RBC 4.23 (4.20-5.50) X10*6/uL Hgb 10.8 L (12.0-16.0) g/dl Hct 34.1 L (37.0-47.0) % MCV 80.6 (80.0-98.0) fL MCH 25.5 L (27.0-33.0) pg MCHC 31.7 (31.0-35.0) g/dl RDW 13.3 (11.0-16.0) % Plt Count 594 H D (160-400) X10*3/uL MPV 10.3 (9.4-12.3) fL Immature Gran % (Auto) 0.3 (0.0-0.4) % Neut % (Auto) 74.7 H (45-73) % Lymph % (Auto) 13.7 L (20-40) % [place] % (Auto) 7.7 (2-11) % Eos % (Auto) 2.7 (0-4) % Baso % (Auto) 0.9 (0-2) % Lymph # (Auto) 2.5 (1.2-4.9) X10*3/uL [place] # (Auto) 1.4 H (0.1-1.2) X10*3/uL Eos # (Auto) 0.5 H (0.0-0.4) X10*3/uL Baso # (Auto) 0.2 (0.0-0.2) X10*3/uL Abs Immat Gran (auto) 0.06 H (0.00-0.03) X10*3/uL Absolute Neuts (auto) 13.6 H (2.0-8.3) x10*3/uL Absolute Nucleated RBC 0.000 (0.0-0.012) X10*3/uL Nucleated RBC % (auto) 0.0 (0.0-0.2) /100WBC ESR (0-20) MM/HR Sodium 138 (135-145) mmol/L Potassium 4.4 (3.3-5.1) mmol/L Chloride 99 (96-108) mmol/L Carbon Dioxide 26 (22-29) mmol/L Anion Gap 17 (12-20) BUN 16 (9-16) mg/dL Creatinine 1.31 (0.5-1.4) mg/dL Estim Creat Clear Calc 53.5 Estimated GFR 43 Random Glucose 187 H (60-115) mg/dL Lactic Acid 2.4 H* (0.5-2.0) mmol/L Calcium 9.4 (8.4-10.2) mg/dL Total Bilirubin 0.2 (0.0-1.0) mg/dL Direct Bilirubin < 0.2 (0.0-0.5) mg/dL AST 32 H D (5-31) U/L ALT 18 (0-31) U/L Alkaline Phosphatase 190 H (39-117) U/L C-Reactive Protein (< or = 0.50) mg/dL Total Protein 7.3 (6.5-8.0) g/dL Albumin 3.5 D (3.5-5.0) g/dL Lipase 18 (8-78) U/L 02/05/22 02/05/22 Range/Units 17:08 17:08 WBC (4.8-10.8) X10*3/uL RBC (4.20-5.50) X10*6/uL Hgb (12.0-16.0) g/dl Hct (37.0-47.0) % MCV (80.0-98.0) fL MCH (27.0-33.0) pg MCHC (31.0-35.0) g/dl RDW (11.0-16.0) % Plt Count (160-400) X10*3/uL MPV (9.4-12.3) fL Immature Gran % (Auto) (0.0-0.4) % Neut % (Auto) (45-73) % Lymph % (Auto) (20-40) % [place] % (Auto) (2-11) % Eos % (Auto) (0-4) % Baso % (Auto) (0-2) % Lymph # (Auto) (1.2-4.9) X10*3/uL [place] # (Auto) (0.1-1.2) X10*3/uL Eos # (Auto) (0.0-0.4) X10*3/uL Baso # (Auto) (0.0-0.2) X10*3/uL Abs Immat Gran (auto) (0.00-0.03) X10*3/uL Absolute Neuts (auto) (2.0-8.3) x10*3/uL Absolute Nucleated RBC (0.0-0.012) X10*3/uL Nucleated RBC % (auto) (0.0-0.2) /100WBC ESR 96 H (0-20) MM/HR Sodium (135-145) mmol/L Potassium (3.3-5.1) mmol/L Chloride (96-108) mmol/L Carbon Dioxide (22-29) mmol/L Anion Gap (12-20) BUN (9-16) mg/dL Creatinine (0.5-1.4) mg/dL Estim Creat Clear Calc Estimated GFR Random Glucose (60-115) mg/dL Lactic Acid (0.5-2.0) mmol/L Calcium (8.4-10.2) mg/dL Total Bilirubin (0.0-1.0) mg/dL Direct Bilirubin (0.0-0.5) mg/dL AST (5-31) U/L ALT (0-31) U/L Alkaline Phosphatase (39-117) U/L C-Reactive Protein 11.43 H (< or = 0.50) mg/dL Total Protein (6.5-8.0) g/dL Albumin (3.5-5.0) g/dL Lipase (8-78) U/L Procedures EJ/Peripheral Line Arm L: Time Out Performed: Yes Skin Cleansed in Sterile Fashion: Yes Size (gauge): 20 IV Secured and Dressing Applied: Yes Patient Tolerated Procedure: well and no complications Additional Comments: US guided Discharge Plan Discharge Clinical Impression: Acidosis, lactic Osteomyelitis Qualifiers: Osteomyelitis type: unspecified type Osteomyelitis location: foot Laterality: right Qualified Code(s): M86.9 - Osteomyelitis, unspecified Leukocytosis Qualifiers: Leukocytosis type: unspecified Qualified Code(s): D72.829 - Elevated white blood cell count, unspecified Patient Disposition: Admitted As Inpatient
--- NOTE | 2022-02-05 19:55 | PC.NURSE ---
This RN attempted to gain IV access x2 on pt. without success. Notified Toby Wilson MD. going over to pt. now to try US-guided IV access at bedside
--- NOTE | 2022-02-05 20:19 | PC.NURSE ---
Toby Wilson MD was able to get an US-guided IV into pt.'s left AC. Moving pt. from ED 6H to ED 7 at this time to place on monitor. was unable to collect blood cultures. This RN will attempt to collect now
[2022-02-05 20:25] LABS: COVID-19 Test Negative (Negative); IDNOW Serial# 55D5AD1C
--- NOTE | 2022-02-05 20:30 | PC.NURSE ---
Both sets of blood cultures collected. Pt. on therapy technician at this time.
[2022-02-05 20:35] LABS: ~Lactic Acid-LAB USE ONLY 1.7 mmol/L (0.5-2.0)
[2022-02-05] MEDS: Ondansetron ODT 4 MG TAB.RAPDIS TRANSLINGU (20:37)
[2022-02-05] MEDS: oxyCODONE HCl Immed Release 5 MG TABLET 10 MG PO (20:37)
[2022-02-05] MEDS: 0.9 % Sodium Chloride 500 ML IV (20:39)
--- NOTE | 2022-02-05 20:41 | PC.NURSE ---
IV antibiotic not available. Awaiting pharmacy. This RN requested med.
--- NOTE | 2022-02-05 21:41 | P.HPHOSP_ITS ---
History of Present Illness Date of Service: 02/05/22 Attending physician on admission: Vincent Elizabeth Chief Complaint: right foot infection 51-year-old female with past medical history of insulin-dependent type 2 diabetes, history of left transmetatarsal amputation secondary to osteomyelitis, CHF, chronic osteomyelitis, HTN, neuropathy, P AD, history of VRE, presents to the hospital with complaints of right foot infection. Pt has chronic nonhealing wounds of the right foot and is s/p amputation of the 4th & 5th toes and distal aspect 5th metatarsal due to osteomyelitis during recent admission 11/2021. Has followed outpatient with Dr. Graves and completed 6 weeks ertapenem and was re cently switched to p.o. doxycycline and linezolid. She [facility] also [facility] seeing Dr. Wang and has [facility] services noting increased purulent drainage and foul odor from her wounds. On arrival to the ED, patient found to be borderline tachycardic at 99, vital signs otherwise stable. White blood cell count 18.2, ESR 96, CRP 11.43. Initial lactic acid 2.4, improved to 1.7 after 2 hours. Creatinine 1.31, BUN 16 (baseline 0.88, 16 respectively). X-ray of the foot showing irregularity in the distal aspects of the 4th and 5th metatarsals, osteomyelitis cannot be excluded. Patient treated with 500 mL IV NS and oxycodone. Review of Systems Review of Systems: General: No fevers, malaise, unintentional weight loss Cardiovascular: No chest pain, palpitations, or leg edema Respiratory: No shortness of breath, wheezing, cough GI: No abdominal pain, nausea, vomiting, diarrhea, constipation, melena, hematochezia MSK: +pain right foot Neuro: No headaches, weakness, paresthesias Skin: +nonhealing wound lateral and plantar surface right foot PMFSH Medical History Abscess Amputated toe of left foot Amputation of left foot BMI 39.0-39.9,adult Chronic heart failure with preserved ejection fraction (HFpEF) Chronic osteomyelitis of foot Diabetes Diabetic foot infection Hyperlipidemia Hypertension Insulin dependent diabetes mellitus Neuropathy Obesity Osteomyelitis PAD (peripheral artery disease) Type 2 diabetes mellitus with unspecified complications Vitamin B12 deficiency VRE (vancomycin resistant enterococcus) culture positive Family History Mother Diabetes Hypertension Disk prolapse Father Diabetes Hypertension Sister No problems noted. Brother No problems noted. Daughter No problems noted. Son No problems noted. Surgical History H/O spinal fusion History of amputation of left foot History of section History of tubal ligation Status post amputation of toe of right foot Social History Household Members: Spouse Household Members Other:: Housing: Apartment Do you presently have visiting nurse or other home services: Yes Alcohol intake: never Patient Tobacco Use Status: Never used Tobacco e-Cigarette/Vaping Use: Never Used Second Hand Smoke Exposure: No Advance Directives: Yes Advance Directives on File: Yes Advance Directives Date on File: 02/15/21 service: No Current occupational status: unemployed Meds Allergies Allergy/AdvReac Type Severity Reaction Status Date / Time No Known Allergies Allergy Verified 01/18/22 11:19 [No Known Allergies*] Active Medications: Current Medications Acetaminophen (Acetaminophen 325 Mg Tablet) 650 mg PO Q6H PRN PRN Reason: Pain, Mild (Pain Scale 1-3) Docusate Sodium (Docusate Sodium 100 Mg Capsule) 100 mg PO DAILY PRN PRN Reason: Constipation Heparin Sodium (Porcine) (Heparin Sodium,Porcine 5,000 Unit/Ml Vial) 5,000 unit SUBCUT Q12H ANGÉLICA Hydromorphone HCl (Hydromorphone Hcl 1 Mg/Ml Syringe) 0.25 mg IVPUSH Q4H PRN; Protocol PRN Reason: Pain, Severe (Pain Scale 7-10) Ondansetron HCl (Ondansetron Hcl 4 Mg/2 Ml Vial) 4 mg IVPUSH Q8H PRN PRN Reason: Nausea and Vomiting Oxycodone HCl (Oxycodone Hcl Immed Release 5 Mg Tablet) 5 mg PO Q6H PRN PRN Reason: Pain, Severe (Pain Scale 7-10) Pharmacy Consult (Consult Rx Perform Med Rec) 1 each MISCELLANE ONCE PRN PRN Reason: Consult order Sodium Chloride (0.9 % Sodium Chloride Flush 3 Ml Syringe) 3 ml IVFLUSH QSHIFT [facility] Home Medications Medication Instructions Recorded Confirmed Last Taken Type amlodipine 10 mg tablet 1 tab PO DAILY 03/19/20 02/05/22 02/05/22 History gabapentin 300 mg capsule 1 cap PO TID 03/19/20 02/05/22 11/28/21 History insulin aspart U-100 100 unit/mL 25 unit subcut TIDAC 03/19/20 02/05/22 11/29/21 History subcutaneous solution (Novolog U-100 Insulin aspart) aspirin 81 mg chewable tablet 81 mg PO DAILY 06/17/21 02/05/22 11/28/21 History blood-glucose meter (FreeStyle #1 ea 07/03/21 11/28/21 History Buckley Lite kit) insulin glargine 100 unit/mL 90 unit subcut BEDTIME 09/13/21 02/05/22 11/28/21 H istory subcutaneous solution (Lantus U-100 Insulin) atorvastatin 80 mg tablet 80 mg PO DAILY 11/29/21 02/05/22 11/28/21 History dulaglutide 0.75 mg/0.5 mL 0.75 mg subcut TU@1000 02/05/22 02/05/22 02/05/22 History subcutaneous pen injector (Trulicity) naproxen 500 mg tablet 500 mg PO BID PRN Headache 02/05/22 02/05/22 Unknown History urea 20 % topical cream 1 appl topical DAILY 02/05/22 02/05/22 Unknown History Physical Exam Vital Signs and Narrative: Vital Signs: Last Vital Signs Temp 97.7 F 02/05/22 18:28 Pulse 96 02/05/22 18:28 Resp 20 02/05/22 18:28 BP 120/65 02/05/22 18:28 Pulse Ox 98 02/05/22 18:28 O2 Del Method 02/05/22 18:28 BMI result Body Mass Index 36.2 Constitutional - Awake and Alert, No apparent distress Eyes - PERRLA, EOMI Cardiovascular - S1S2, RRR, No edema Respiratory - Normal lung expansion, Normal respiratory effort, No respiratory distress, CTA bilaterally Gastrointestinal - NT / ND; +BS; No rebound or guarding Extremities - no calf tenderness bilaterally, no swelling Musculoskeletal - s/p left transmetatarsal amputation, s/p amputation 4th and 5th toes Skin - Warm/Dry. Chronic ulceration with scattered granulation tissue and slough of the lateral aspect of the right foot and plantar aspect of the right foot covered by skin follow-up Neurological - Alert & oriented x3, CN II-XII in tact, 5/5 strength bue and ble Psychological - Appropriate affect Results Labs CBC and Chem 7: 02/05/22 17:08 02/05/22 17:08 Labs: Laboratory Results - last 24 hr 02/05/22 02/05/22 02/05/22 17:08 17:08 17:08 MCV 80.6 MCH 25.5 L MCHC 31.7 RDW 13.3 Plt Count 594 H D MPV 10.3 Immature Gran % (Auto) 0.3 Neut % (Auto) 74.7 H Lymph % (Auto) 13.7 L Harrison % (Auto) 7.7 Eos % (Auto) 2.7 Baso % (Auto) 0.9 Lymph # (Auto) 2.5 Harrison # (Auto) 1.4 H Eos # (Auto) 0.5 H Baso # (Auto) 0.2 Abs Immat Gran (auto) 0.06 H Absolute Neuts (auto) 13.6 H Absolute Nucleated RBC 0.000 Nucleated RBC % (auto) 0.0 ESR Anion Gap 17 Estim Creat Clear Calc 53.5 Estimated GFR 43 Random Glucose 187 H Lactic Acid 2.4 H* Lactic Acid F/U @ 2Hr Calcium 9.4 Total Bilirubin 0.2 Direct Bilirubin < 0.2 AST 32 H D ALT 18 Alkaline Phosphatase 190 H C-Reactive Protein Total Protein 7.3 Albumin 3.5 D Lipase 18 COVID-19 ([facility]ATA) COVID-19 Clin Com 02/05/22 02/05/22 02/05/22 17:08 17:08 19:47 MCV MCH MCHC RDW Plt Count MPV Immature Gran % (Auto) Neut % (Auto) Lymph % (Auto) Harrison % (Auto) Eos % (Auto) Baso % (Auto) Lymph # (Auto) Harrison # (Auto) Eos # (Auto) Baso # (Auto) Abs Immat Gran (auto) Absolute Neuts (auto) Absolute Nucleated RBC Nucleated RBC % (auto) ESR 96 H Anion Gap Estim Creat Clear Calc Estimated GFR Random Glucose Lactic Acid Lactic Acid F/U @ 2Hr Calcium Total Bilirubin Direct Bilirubin AST ALT Alkaline Phosphatase C-Reactive Protein 11.43 H Total Protein Albumin Lipase COVID-19 ([facility]ATA) Negative COVID-19 Clin Com See Note 02/05/22 20:13 MCV MCH MCHC RDW Plt Count MPV Immature Gran % (Auto) Neut % (Auto) Lymph % (Auto) Harrison % (Auto) Eos % (Auto) Baso % (Auto) Lymph # (Auto) Harrison # (Auto) Eos # (Auto) Baso # (Auto) Abs Immat Gran (auto) Absolute Neuts (auto) Absolute Nucleated RBC Nucleated RBC % (auto) ESR Anion Gap Estim Creat Clear Calc Estimated GFR Random Glucose Lactic Acid Lactic Acid F/U @ 2Hr 1.7 Calcium Total Bilirubin Direct Bilirubin AST ALT Alkaline Phosphatase C-Reactive Protein Total Protein Albumin Lipase COVID-19 ([facility]ATA) COVID-19 Clin Com Imaging Radiologist's Impressions: Impressions Foot X-Ray 02/05/22 17:30 IMPRESSION: Irregularity in the distal aspects of the fourth and fifth metatarsals may be postsurgical, but demonstrates some irregularity. Osteomyelitis cannot be excluded. Assessment and Plan (1) Diabetic foot ulcer with osteomyelitis: Status: Acute (2) Severe sepsis: Status: Acute (3) AMY (acute kidney injury): Status: Acute Plan 51-year-old female with past medical history of insulin-dependent type 2 diabetes, history of left transmetatarsal amputation secondary to osteomyelitis, CHF, chronic osteomyelitis, HTN, neuropathy, P AD, history of VRE admitted for osteomyelitis of the right foot with severe sepsis and AMY. # severe sepsis-secondary to osteomyelitis -borderline tachycardia to 99, white blood cell count 18.2, initial lactic acid 2.4 improved to 1.7 on recheck. AMY. No hypotension -received 500 mL IVF. Hold off on further IVF due to history of CHF -monitor vital signs -follow BMP and CBC # acute on chronic osteomyelitis right foot -s/p irritation 4th and 5th toes as well as distal aspect of the 5th metatarsal in 11/2021 -x-ray showing irregularity in the distal aspects of the 4th and 5th metatarsals, osteomyelitis cannot be excluded -MRI foot ordered -IV ertapenem which patient was previously receiving via PICC line (followed by Po and linezolid and doxycycline) -infectious disease consulted, general surgery consulted (performed previous amputation) -keep NPO after midnight in case of procedure # chronic nonhealing wounds of the right foot related to uncontrolled type 2 diabetes and PAD -plan as above # AMY secondary to infection -creatinine 1.31, BUN 16 (baseline 0.88, 16 respectively) -received 500 mL IVF in the ED. hold on further fluids due to CHF history -recheck BMP a.m. # insulin-dependent type 2 diabetes-uncontrolled -continue dose adjusted Lantus from home -Humalog on sliding scale -diabetic diet -POC glucose # hypertension-controlled -continue home amlodipine -monitor BPs # diabetic neuropathy -continue gabapentin # CHF, unclear type-euvolemic appearing -no intervention needed at this time #severe obesity -BMP 36.2 -Weight loss strategies advised. -Diabetic diet. DVT prophylaxis-heparin Full code Patient requires inpatient stay of at least 2 midnights due to osteomyelitis with severe sepsis requiring IV antibiotics and IVF requiring close monitoring to prevent decompensation to septic shock as well as cardiac decompensation with fluid overload due to history of CHF. Quality Stroke Does the patient have a stroke diagnosis?: No VTE Prior VTE?: No VTE Risk Level:: Medical - moderate - high VTE Device Contraindication: Treatment Not Indicated VTE Drug Contraindication: N/A - Med Ordered
--- NOTE | 2022-02-05 21:56 | PHA.MEDREC ---
MED REC COMPLETE, NO ISSUES Pharmacy Consult ? Medication Reconciliation Pharmacy has completed the medication reconciliation.
[2022-02-05 23:19] VITALS: BP 172/90; PULSE 90; RESP 29; TEMP 36.8; O2SAT 98
[2022-02-05] MEDS: Ertapenem Sodium 1 GM in 0.9 % Sodium Chloride 50 ML IV (23:23)
--- NOTE | 2022-02-06 00:39 | PC.NURSE ---
Care delayed because this RN was in another room with a very critical pt.
[2022-02-06] MEDS: Gabapentin 300 MG CAPSULE PO ×4 (01:01→21:28)
[2022-02-06] MEDS: Ertapenem Sodium 1 GM in 0.9 % Sodium Chloride 50 ML IV (01:02)
[2022-02-06] MEDS: Heparin Sodium,Porcine 5,000 UNIT/ML VIAL 5000 UNIT SUBCUT ×3 (01:04→21:28)
[2022-02-06 01:12] LABS: Glucose, Whole Blood 122 mg/dL (60-115)
--- NOTE | 2022-02-06 01:12 | PC.NURSE ---
POC is 122 at this time. Pt. was ordered for 68U Glargine at 22:00, but care was delayed b/c this RN was in with a critical pt. Going to give the HS dose of 68U Glargine now, but the POC is only 122. Pt. said that if she was at home and her POC was 122, she would only take 20-25U Glargine. Notified Dorian Elizabeth MD to ask if she could adjust the insulin order. Awaiting new insulin order from provider at this time.
[2022-02-06 04:47] LABS: MANUAL DIFF FLAG NO
[2022-02-06 04:51] LABS: Basophils Absolute Auto 0.1 X10*3/uL (0.0-0.2); Basophils Percent Auto 0.7 % (0-2); Eosinophils Absolute Auto 0.4 X10*3/uL (0.0-0.4); Eosinophils Percent Auto 2.6 % (0-4); Hematocrit 34.9 % (37.0-47.0); Hemoglobin 11.2 g/dl (12.0-16.0); Imm Gran Abs Auto 0.07 X10*3/uL (0.00-0.03); Imm Gran Pct Auto 0.4 % (0.0-0.4); Lymphocytes Absolute Auto 2.9 X10*3/uL (1.2-4.9); Lymphocytes Percent Auto 17.4 % (20-40); Mean Corpuscular HGB Conc 32.1 g/dl (31.0-35.0); Mean Corpuscular Hemoglobin 25.9 pg (27.0-33.0); Mean Corpuscular Volume 80.8 fL (80.0-98.0); Mean Platelet Volume 10.3 fL (9.4-12.3); Monocytes Absolute Auto 1.5 X10*3/uL (0.1-1.2); Monocytes Percent Auto 8.8 % (2-11); Neutrophils Absolute Auto 11.7 x10*3/uL (2.0-8.3); Neutrophils Percent Auto 70.1 % (45-73); Platelet Count 527 X10*3/uL (160-400); Red Blood Count 4.32 X10*6/uL (4.20-5.50); Red Cell Distribution Width 13.2 % (11.0-16.0); White Blood Count 16.7 X10*3/uL (4.8-10.8)
[2022-02-06 05:07] VITALS: BP 155/75; PULSE 94; RESP 15; TEMP 37.3; O2SAT 94
[2022-02-06] MEDS: Acetaminophen 325 MG TABLET 650 MG PO ×3 (05:15→21:27)
[2022-02-06 05:22] LABS: Anion Gap 19 (12-20); Blood Urea Nitrogen 13 mg/dL (9-16); Calcium 8.4 mg/dL (8.4-10.2); Carbon Dioxide 23 mmol/L (22-29); Chloride 101 mmol/L (96-108); Creatinine Clr Calc Pharmacy 80.6; Estimated Glomerular Filt Rate > 60; Glucose Random 144 mg/dL (60-115); Potassium 4.9 mmol/L (3.3-5.1); Sodium 138 mmol/L (135-145)
[2022-02-06 07:31] VITALS: BP 136/74; PULSE 99; RESP 14; TEMP 38.7; O2SAT 92
[2022-02-06 07:48] LABS: Glucose, Whole Blood 187 mg/dL (60-115)
[2022-02-06] MEDS: ondansetron HCL 4 MG/2 ML VIAL IVPUSH (08:10)
[2022-02-06] MEDS: NaPROXEN 500 MG TABLET PO (08:11)
[2022-02-06] MEDS: amLODIPine Besylate 10 MG TABLET PO (09:53)
[2022-02-06] MEDS: Cyanocobalamin (Vitamin B-12) 1,000 MCG TABLET 1000 MCG PO (09:53)
[2022-02-06] MEDS: Aspirin 81 MG TAB.CHEW PO (09:54)
[2022-02-06] MEDS: Atorvastatin Calcium 80 MG TABLET PO (09:54)
[2022-02-06] MEDS: 0.9 % Sodium Chloride Flush 3 ML SYRINGE IVFLUSH ×2 (09:56→15:14)
[2022-02-06 10:00] VITALS: TEMP 36.9
--- NOTE | 2022-02-06 10:20 | MHC.CM.PN ---
Met with patient in regards to discharge planning. Patient lives with her , ambulates with a walker and is active with [facility]. PCP verified. Copy of HCP verified to be on file. Patient received 1 J&J vaccine and 3 Moderna boosters. Family will transport patient home when medically stable. Continue to monitor for d/c needs.
[2022-02-06 11:00] VITALS: BP 134/64; PULSE 109; RESP 14; TEMP 38.3; O2SAT 92
--- NOTE | 2022-02-06 11:01 | PC.NURSE ---
vomitted bile does not want apap at this time, zofran due at 1200, skin wpd, blanket removed, alert, speech clear skin pale and dry
[2022-02-06 11:38] LABS: Glucose, Whole Blood 279 mg/dL (60-115)
--- NOTE | 2022-02-06 13:10 | P.PNIM_ITS ---
Subjective Subjective Date of Service: 02/07/22 Interval History: patient has been seen today. Patient mentions that she has chronic foot ulcer, has visiting nurses who came to visit her and noted that she has pus-like discharge; subsequently asked to go to the hospital for further evaluation. Reports he has been having fevers. Patient also mentioned that she has been having nausea and vomiting has time of my interview. Denies any blood in the vomitus. Denies any abdominal pain. Patient denies any chest pain palpitations, headaches, numbness tingling or focal weakness. Physical Exam Vital Signs: Vital Signs: Last Vital Signs Temp 100.9 F H 02/06/22 11:00 Pulse 109 H 02/06/22 11:00 Resp 14 02/06/22 11:00 BP 134/64 02/06/22 11:00 Pulse Ox 92 02/06/22 11:00 O2 Del Method 02/06/22 11:00 BMI result Body Mass Index 36.2 Gen: Appears be in no acute distress HEENT: NCAT, Moist mucosa. Pulmonary: Vesicular breath sounds, fair air entry CVS: Normal S1-S2 Abdomen: BS+, Soft, Nontender Extremities: Warm well perfused; right foot wound has dressing in place, soaked with yellow pus-like fluid. Neuro: Alert and awake. Objective Data Active Medications Acetaminophen (Acetaminophen 325 Mg Tablet) 650 mg PO Q6H PRN PRN Reason: Pain, Mild (Pain Scale 1-3) Last Admin: 02/06/22 11:27 Dose: 650 mg Documented By: ALLI Amlodipine Besylate (Amlodipine Besylate 10 Mg Tablet) 10 mg PO DAILY [facility]; Protocol Last Admin: 02/06/22 09:53 Dose: 10 mg Documented By: ALLI Aspirin (Aspirin 81 Mg Tab.Chew) 81 mg PO DAILY [facility] Last Admin: 02/06/22 09:54 Dose: 81 mg Documented By: ALLI Atorvastatin Calcium (Atorvastatin Calcium 80 Mg Tablet) 80 mg PO DAILY [facility] Last Admin: 02/06/22 09:54 Dose: 80 mg Documented By: ALLI Cyanocobalamin (Cyanocobalamin (Vitamin B-12) 1,000 Mcg Tablet) 1,000 mcg PO DAILY [facility] Last Admin: 02/06/22 09:53 Dose: 1,000 mcg Documented By: ALLI Dextrose (Dextrose 50 % 25 Gm/50 Ml Syringe) 25 gm IVPUSH Q15M PRN; Protocol PRN Reason: per Hypoglycemia Standing Ord. Docusate Sodium (Docusate Sodium 100 Mg Capsule) 100 mg PO DAILY PRN PRN Reason: Constipation Gabapentin (Gabapentin 300 Mg Capsule) 300 mg PO TID [facility] Last Admin: 02/06/22 09:53 Dose: 300 mg Documented By: ALLI Glucose (Glucose Gel 15 Gm Gel..Gram.) 15 gm PO Q15M PRN; Protocol PRN Reason: per Hypoglycemia Standing Ord. Heparin Sodium (Porcine) (Heparin Sodium,Porcine 5,000 Unit/Ml Vial) 5,000 unit SUBCUT Q12H [facility] Last Admin: 02/06/22 09:53 Dose: 5,000 unit Documented By: ALLI Hydromorphone HCl (Hydromorphone Hcl 1 Mg/Ml Syringe) 0.25 mg IVPUSH Q4H PRN; Protocol PRN Reason: Pain, Severe (Pain Scale 7-10) Insulin Glargine (Insulin Glargine,Hum.Rec.Anlog 100 Unit/Ml 10 Ml Vial) 68 unit SUBCUT BEDTIME [facility] Last Admin: 02/06/22 01:17 Dose: Not Given Documented By: HERNANDEZ Non-Admin Reason: Do not administer per Dorian Elizabeth MD Insulin Human Lispro (Insulin Lispro 100 Unit/Ml 3 Ml Vial) 0 unit SUBCUT QIDACHS [facility]; Protocol Last Admin: 02/06/22 08:12 Dose: Not Given Documented By: ALLI Non-Admin Reason: See Note Naproxen (Naproxen 500 Mg Tablet) 500 mg PO BID PRN PRN Reason: Headache Last Admin: 02/06/22 08:11 Dose: 500 mg Documented By: ALLI Ondansetron HCl (Ondansetron Hcl 4 Mg/2 Ml Vial) 4 mg IVPUSH Q8H PRN PRN Reason: Nausea and Vomiting Last Admin: 02/06/22 08:10 Dose: 4 mg Documented By: ALLI Oxycodone HCl (Oxycodone Hcl Immed Release 5 Mg Tablet) 5 mg PO Q6H PRN PRN Reason: Pain, Severe (Pain Scale 7-10) Pharmacy Consult (Consult Rx Perform Med Rec) 1 each MISCELLANE ONCE PRN PRN Reason: Consult order Sodium Chloride (0.9 % Sodium Chloride Flush 3 Ml Syringe) 3 ml IVFLUSH QSHIFT [facility] Last Admin: 02/06/22 09:56 Dose: 3 ml Documented By: ALLI Labs CBC & Chem 7: 02/06/22 04:08 02/06/22 04:08 Labs: Laboratory Results - last 24 hr 02/05/22 02/05/22 02/05/22 17:08 17:08 17:08 MCV 80.6 MCH 25.5 L MCHC 31.7 RDW 13.3 Plt Count 594 H D MPV 10.3 Immature Gran % (Auto) 0.3 Neut % (Auto) 74.7 H Lymph % (Auto) 13.7 L [place] % (Auto) 7.7 Eos % (Auto) 2.7 Baso % (Auto) 0.9 Lymph # (Auto) 2.5 [place] # (Auto) 1.4 H Eos # (Auto) 0.5 H Baso # (Auto) 0.2 Abs Immat Gran (auto) 0.06 H Absolute Neuts (auto) 13.6 H Absolute Nucleated RBC 0.000 Nucleated RBC % (auto) 0.0 ESR Anion Gap 17 Estim Creat Clear Calc 53.5 Estimated GFR 43 POC Glucose Random Glucose 187 H Lactic Acid 2.4 H* Lactic Acid F/U @ 2Hr Calcium 9.4 Total Bilirubin 0.2 Direct Bilirubin < 0.2 AST 32 H D ALT 18 Alkaline Phosphatase 190 H C-Reactive Protein Total Protein 7.3 Albumin 3.5 D Lipase 18 COVID-19 ([facility]) COVID-19 Clin Com 02/05/22 02/05/22 02/05/22 17:08 17:08 19:47 MCV MCH MCHC RDW Plt Count MPV Immature Gran % (Auto) Neut % (Auto) Lymph % (Auto) [place] % (Auto) Eos % (Auto) Baso % (Auto) Lymph # (Auto) [place] # (Auto) Eos # (Auto) Baso # (Auto) Abs Immat Gran (auto) Absolute Neuts (auto) Absolute Nucleated RBC Nucleated RBC % (auto) ESR 96 H Anion Gap Estim Creat Clear Calc Estimated GFR POC Glucose Random Glucose Lactic Acid Lactic Acid F/U @ 2Hr Calcium Total Bilirubin Direct Bilirubin AST ALT Alkaline Phosphatase C-Reactive Protein 11.43 H Total Protein Albumin Lipase COVID-19 ([facility]) Negative COVID-19 Clin Com See Note 02/05/22 02/06/22 02/06/22 20:13 01:08 04:08 MCV 80.8 MCH 25.9 L MCHC 32.1 RDW 13.2 Plt Count 527 H MPV 10.3 Immature Gran % (Auto) 0.4 Neut % (Auto) 70.1 Lymph % (Auto) 17.4 L [place] % (Auto) 8.8 Eos % (Auto) 2.6 Baso % (Auto) 0.7 Lymph # (Auto) 2.9 [place] # (Auto) 1.5 H Eos # (Auto) 0.4 Baso # (Auto) 0.1 Abs Immat Gran (auto) 0.07 H Absolute Neuts (auto) 11.7 H Absolute Nucleated RBC 0.000 Nucleated RBC % (auto) 0.0 ESR Anion Gap Estim Creat Clear Calc Estimated GFR POC Glucose 122 H Random Glucose Lactic Acid Lactic Acid F/U @ 2Hr 1.7 Calcium Total Bilirubin Direct Bilirubin AST ALT Alkaline Phosphatase C-Reactive Protein Total Protein Albumin Lipase COVID-19 ([facility]) COVID-19 Clin Com 02/06/22 02/06/22 02/06/22 04:08 07:35 11:29 MCV MCH MCHC RDW Plt Count MPV Immature Gran % (Auto) Neut % (Auto) Lymph % (Auto) [place] % (Auto) Eos % (Auto) Baso % (Auto) Lymph # (Auto) [place] # (Auto) Eos # (Auto) Baso # (Auto) Abs Immat Gran (auto) Absolute Neuts (auto) Absolute Nucleated RBC Nucleated RBC % (auto) ESR Anion Gap 19 Estim Creat Clear Calc 80.6 Estimated GFR > 60 POC Glucose 187 H 279 H Random Glucose 144 H Lactic Acid Lactic Acid F/U @ 2Hr Calcium 8.4 D Total Bilirubin Direct Bilirubin AST ALT Alkaline Phosphatase C-Reactive Protein Total Protein Albumin Lipase COVID-19 ([facility]) COVID-19 Clin Com Assessment and Plan (1) Diabetic foot ulcer with osteomyelitis: Status: Acute Plan 51-year-old female with a past medical history of hypertension, hyperlipidemia, diabetes, diabetic neuropathy, CHF, diabetic foot ulcer with chr onic osteomyelitis, peripheral vascular disease, history of VRE infection presented to the hospital with pus-like discharge from her right foot ulcer. Severe Sepsis secondary to right-sided diabetic foot ulcer/osteomyelitis: on presentation pt has leukocytosis, tachy, lactic acidosis; AMY qualifying for severe sepsis. patient had chronic nonhealing wound of the 4th and 5th metatarsal amputation site with osteomyelitis- finished course of ertapenem for 6 weeks, recently started on p.o. doxy plus lines were noted. Repeat foot x-ray showed irregular piece of the 4th and 5th metatarsals, oste omyelitis cannot be excluded consulted general surgery and ID for further recommendations. Follow up cultures c/w Meropenem 1gr IV q8h. Mild AMY: Patient's creatinine on presentation was 1.3. Baseline 0.8. Improved with IV fluids. nausea/ vomiting: Likely gastritis. Benign abdominal examination. Supportive care. Advanced diet as tolerated. Insulin-dependent diabetes: Patient on Lantus plus sliding scale. Monitor fingerstick glucose. History of hypertension: Continue home amlodipine History of diabetic neuropathy: Continue home gabapentin History of CHF: Stable DVT prophylaxis: Subcu heparin Code status: Full code Quality Stroke Does the patient have a stroke diagnosis?: No VTE Prior VTE?: No VTE Risk Level:: Medical - moderate - high VTE Device Contraindication: Treatment Not Indicated VTE Drug Contraindication: N/A - Med Ordered
[2022-02-06 14:20] LABS: Glucose, Whole Blood 279 mg/dL (60-115)
--- NOTE | 2022-02-06 15:43 | P.CONGS_ITS ---
History of Present Illness Consult details Consult date: 02/06/22 Narrative: 51-year-old female referred for osteomyelitis of the right foot. The patient has a long history of diabetes and osteomyelitis with the ulcer. She had actually undergone amputation of the 5th toe with Dr. Pegeuro last November, She comes in now because of an ulcer on the amputation site as well as on the plantar aspect. She describes some drainage. She says she does not have any significant pain on the area. She had an x-ray showing question of osteomyelitis of the remaining distal metatarsal of the 4th and 5th toes. Review of Systems Constitutional: Constitutional: Denies chills and Denies fever(s) Cardiovascular: Cardiovascular: Denies chest pain, Denies dyspnea and Denies dyspnea on exertion Respiratory: Respiratory: Denies cough, Denies dyspnea and Denies dyspnea on exertion Gastrointestinal: Gastrointestinal: Denies hematochezia and Denies change in bowel habits Genitourinary: Genitourinary: Denies hematuria Musculoskeletal: Musculoskeletal: Denies back pain and Denies limited range of motion Neurologic: Denies focal weakness and Denies convulsions Psychiatric: Psychiatric: Denies depression and Denies mood swings [facility] Past Medical History Medical History Abscess Amputated toe of left foot Amputation of left foot BMI 39.0-39.9,adult Chronic heart failure with preserved ejection fraction (HFpEF) Chronic osteomyelitis of foot Diabetes Diabetic foot infection Hyperlipidemia Hypertension Insulin dependent diabetes mellitus Neuropathy Obesity Osteomyelitis Osteomyelitis PAD (peripheral artery disease) Type 2 diabetes mellitus with unspecified complications Vitamin B12 deficiency VRE (vancomycin resistant enterococcus) culture positive Family History Family History Mother Diabetes Hypertension Disk prolapse Father Diabetes Hypertension Sister No problems noted. Brother No problems noted. Daughter No problems noted. Son No problems noted. Surgical History Surgical History H/O spinal fusion History of amputation of left foot History of section History of tubal ligation Status post amputation of toe of right foot Social History Social History Household Members: Significant Other Household Members Other:: Housing: Apartment Do you presently have visiting nurse or other home services: Yes Alcohol intake: never Patient Tobacco Use Status: Never used Tobacco e-Cigarette/Vaping Use: Never Used Second Hand Smoke Exposure: No Advance Directives Date on File: 02/15/21 service: No Current occupational status: unemployed Meds Allergies Allergy/AdvReac Type Severity Reaction Status Date / Time No Known Allergies Allergy Verified 01/18/22 11:19 [No Known Allergies*] Active Medications: Current Medications Acetaminophen (Acetaminophen 325 Mg Tablet) 650 mg PO Q6H PRN PRN Reason: Pain, Mild (Pain Scale 1-3) Last Admin: 02/06/22 11:27 Dose: 650 mg Amlodipine Besylate (Amlodipine Besylate 10 Mg Tablet) 10 mg PO DAILY [facility]; Protocol Last Admin: 02/06/22 09:53 Dose: 10 mg Aspirin (Aspirin 81 Mg Tab.Chew) 81 mg PO DAILY [facility] Last Admin: 02/06/22 09:54 Dose: 81 mg Atorvastatin Calcium (Atorvastatin Calcium 80 Mg Tablet) 80 mg PO DAILY [facility] Last Admin: 02/06/22 09:54 Dose: 80 mg Cyanocobalamin (Cyanocobalamin (Vitamin B-12) 1,000 Mcg Tablet) 1,000 mcg PO DAILY [facility] Last Admin: 02/06/22 09:53 Dose: 1,000 mcg Dextrose (Dextrose 50 % 25 Gm/50 Ml Syringe) 25 gm IVPUSH Q15M PRN; Protocol PRN Reason: per Hypoglycemia Standing Ord. Docusate Sodium (Docusate Sodium 100 Mg Capsule) 100 mg PO DAILY PRN PRN Reason: Constipation Gabapentin (Gabapentin 300 Mg Capsule) 300 mg PO TID [facility] Last Admin: 02/06/22 13:59 Dose: 300 mg Glucose (Glucose Gel 15 Gm Gel..Gram.) 15 gm PO Q15M PRN; Protocol PRN Reason: per Hypoglycemia Standing Ord. Heparin Sodium (Porcine) (Heparin Sodium,Porcine 5,000 Unit/Ml Vial) 5,000 unit SUBCUT Q12H [facility] Last Admin: 02/06/22 09:53 Dose: 5,000 unit Hydromorphone HCl (Hydromorphone Hcl 1 Mg/Ml Syringe) 0.25 mg IVPUSH Q4H PRN; Protocol PRN Reason: Pain, Severe (Pain Scale 7-10) Meropenem 1 gm/ Sodium (Chloride) 100 mls @ 200 mls/hr IV Q8H [facility] Last Admin: 02/06/22 13:59 Dose: 200 mls/hr Insulin Glargine (Insulin Glargine,Hum.Rec.Anlog 100 Unit/Ml 10 Ml Vial) 68 unit SUBCUT BEDTIME [facility] Last Admin: 02/06/22 01:17 Dose: Not Given Insulin Human Lispro (Insulin Lispro 100 Unit/Ml 3 Ml Vial) 0 unit SUBCUT QIDACHS [facility]; Protocol Last Admin: 02/06/22 14:09 Dose: Not Given Naproxen (Naproxen 500 Mg Tablet) 500 mg PO BID PRN PRN Reason: Headache Last Admin: 02/06/22 08:11 Dose: 500 mg Ondansetron HCl (Ondansetron Hcl 4 Mg/2 Ml Vial) 4 mg IVPUSH Q8H PRN PRN Reason: Nausea and Vomiting Last Admin: 02/06/22 08:10 Dose: 4 mg Oxycodone HCl (Oxycodone Hcl Immed Release 5 Mg Tablet) 5 mg PO Q6H PRN PRN Reason: Pain, Severe (Pain Scale 7-10) Pharmacy Consult (Consult Rx Perform Med Rec) 1 each MISCELLANE ONCE PRN PRN Reason: Consult order Sodium Chloride (0.9 % Sodium Chloride Flush 3 Ml Syringe) 3 ml IVFLUSH QSHIFT [facility] Last Admin: 02/06/22 15:14 Dose: 3 ml Home Medications Medication Instructions Recorded Confirmed Last Taken Type amlodipine 10 mg tablet 1 tab PO DAILY 03/19/20 02/05/22 02/05/22 History gabapentin 300 mg capsule 1 cap PO TID 03/19/20 02/05/22 11/28/21 History insulin aspart U-100 100 unit/mL 25 unit subcut TIDAC 03/19/20 02/05/22 11/29/21 History subcutaneous solution (Novolog U-100 Insulin aspart) aspirin 81 mg chewable tablet 81 mg PO DAILY 06/17/21 02/05/22 11/28/21 History blood-glucose meter (FreeStyle #1 ea 07/03/21 11/28/21 History [place] Lite kit) insulin glargine 100 unit/mL 90 unit subcut BEDTIME 09/13/21 02/05/22 11/28/21 History subcutaneous solution (Lantus U-100 Insulin) atorvastatin 80 mg tablet 80 mg PO DAILY 11/29/21 02/05/22 11/28/21 History dulaglutide 0.75 mg/0.5 mL 0.75 mg subcut TU@1000 02/05/22 02/05/22 02/05/22 History subcutaneous pen injector (Trulicity) naproxen 500 mg tablet 500 mg PO BID PRN Headache 02/05/22 02/05/22 Unknown History urea 20 % topical cream 1 appl topical DAILY 02/05/22 02/05/22 Unknown History Physical Exam Vital Signs: Vital Signs: Last Vital Signs Temp 100.9 F H 02/06/22 11:00 Pulse 109 H 02/06/22 11:00 Resp 14 02/06/22 11:00 BP 134/64 02/06/22 11:00 Pulse Ox 92 02/06/22 11:00 O2 Del Method 02/06/22 11:00 BMI result Body Mass Index 36.2 Const: General: comfortable and no acute distress Orientation/consciousness: patient oriented x3 Neck: Neck: Yes no lymphadenopathy Resp: Auscultation: clear to auscultation bilaterally Cardio: Rhythm: regular rhythm GI: Palpation (GI): Soft to palpation, nontender and no guarding Neuro: General: patient oriented x3 Extrem: Other: Ulcerations/open wound on the amputation site on the 4th and 5th toe on the right, with some scanty drainage; ulceration also seen on the anterior aspect of the foot, also with some drainage Results Labs Result diagrams: 02/12/22 05:16 02/12/22 05:16 Labs: Abnormal lab results 02/05/22 02/05/22 02/05/22 Range/Units 17:08 17:08 17:08 WBC 18.2 H (4.8-10.8) X10*3/uL Hgb 10.8 L (12.0-16.0) g/dl Hct 34.1 L (37.0-47.0) % MCH 25.5 L (27.0-33.0) pg Plt Count 594 H D (160-400) X10*3/uL Neut % (Auto) 74.7 H (45-73) % Lymph % (Auto) 13.7 L (20-40) % [place] # (Auto) 1.4 H (0.1-1.2) X10*3/uL Eos # (Auto) 0.5 H (0.0-0.4) X10*3/uL Abs Immat Gran (auto) 0.06 H (0.00-0.03) X10*3/uL Absolute Neuts (auto) 13.6 H (2.0-8.3) x10*3/uL ESR (0-20) MM/HR POC Glucose (60-115) mg/dL Random Glucose 187 H (60-115) mg/dL Lactic Acid 2.4 H* (0.5-2.0) mmol/L AST 32 H D (5-31) U/L Alkaline Phosphatase 190 H (39-117) U/L C-Reactive Protein (< or = 0.50) mg/dL 02/05/22 02/05/22 02/06/22 Range/Units 17:08 17:08 01:08 WBC (4.8-10.8) X10*3/uL Hgb (12.0-16.0) g/dl Hct (37.0-47.0) % MCH (27.0-33.0) pg Plt Count (160-400) X10*3/uL Neut % (Auto) (45-73) % Lymph % (Auto) (20-40) % [place] # (Auto) (0.1-1.2) X10*3/uL Eos # (Auto) (0.0-0.4) X10*3/uL Abs Immat Gran (auto) (0.00-0.03) X10*3/uL Absolute Neuts (auto) (2.0-8.3) x10*3/uL ESR 96 H (0-20) MM/HR POC Glucose 122 H (60-115) mg/dL Random Glucose (60-115) mg/dL Lactic Acid (0.5-2.0) mmol/L AST (5-31) U/L Alkaline Phosphatase (39-117) U/L C-Reactive Protein 11.43 H (< or = 0.50) mg/dL 02/06/22 02/06/22 02/06/22 Range/Units 04:08 04:08 07:35 WBC 16.7 H (4.8-10.8) X10*3/uL Hgb 11.2 L (12.0-16.0) g/dl Hct 34.9 L (37.0-47.0) % MCH 25.9 L (27.0-33.0) pg Plt Count 527 H (160-400) X10*3/uL Neut % (Auto) (45-73) % Lymph % (Auto) 17.4 L (20-40) % [place] # (Auto) 1.5 H (0.1-1.2) X10*3/uL Eos # (Auto) (0.0-0.4) X10*3/uL Abs Immat Gran (auto) 0.07 H (0.00-0.03) X10*3/uL Absolute Neuts (auto) 11.7 H (2.0-8.3) x10*3/uL ESR (0-20) MM/HR POC Glucose 187 H (60-115) mg/dL Random Glucose 144 H (60-115) mg/dL Lactic Acid (0.5-2.0) mmol/L AST (5-31) U/L Alkaline Phosphatase (39-117) U/L C-Reactive Protein (< or = 0.50) mg/dL 02/06/22 02/06/22 Range/Units 11:29 14:17 WBC (4.8-10.8) X10*3/uL Hgb (12.0-16.0) g/dl Hct (37.0-47.0) % MCH (27.0-33.0) pg Plt Count (160-400) X10*3/uL Neut % (Auto) (45-73) % Lymph % (Auto) (20-40) % [place] # (Auto) (0.1-1.2) X10*3/uL Eos # (Auto) (0.0-0.4) X10*3/uL Abs Immat Gran (auto) (0.00-0.03) X10*3/uL Absolute Neuts (auto) (2.0-8.3) x10*3/uL ESR (0-20) MM/HR POC Glucose 279 H 279 H (60-115) mg/dL Random Glucose (60-115) mg/dL Lactic Acid (0.5-2.0) mmol/L AST (5-31) U/L Alkaline Phosphatase (39-117) U/L C-Reactive Protein (< or = 0.50) mg/dL Short CBC 02/05/22 02/06/22 Range/Units 17:08 04:08 WBC 18.2 H 16.7 H (4.8-10.8) X10*3/uL Hgb 10.8 L 11.2 L (12.0-16.0) g/dl Hct 34.1 L 34.9 L (37.0-47.0) % Plt Count 594 H D 527 H (160-400) X10*3/uL BMP 02/05/22 02/06/22 17:08 04:08 Sodium 138 138 Potassium 4.4 4.9 Chloride 99 101 Carbon Dioxide 26 23 BUN 16 13 Creatinine 1.31 0.87 Calcium 9.4 8.4 D Liver Function 02/05/22 Range/Units 17:08 Total Bilirubin 0.2 (0.0-1.0) mg/dL Direct Bilirubin < 0.2 (0.0-0.5) mg/dL AST 32 H D (5-31) U/L ALT 18 (0-31) U/L Alkaline Phosphatase 190 H (39-117) U/L Albumin 3.5 D (3.5-5.0) g/dL All other labs normal. Imaging Additional studies: Laboratory Results WBC 16.7 X10*3/uL (4.8-10.8) H 02/06/22 04:08 RBC 4.32 X10*6/uL (4.20-5.50) 02/06/22 04:08 Hgb 11.2 g/dl (12.0-16.0) L 02/06/22 04:08 Hct 34.9 % (37.0-47.0) L 02/06/22 04:08 MCV 80.8 fL (80.0-98.0) 02/06/22 04:08 MCH 25.9 pg (27.0-33.0) L 02/06/22 04:08 MCHC 32.1 g/dl (31.0-35.0) 02/06/22 04:08 RDW 13.2 % (11.0-16.0) 02/06/22 04:08 Plt Count 527 X10*3/uL (160-400) H 02/06/22 04:08 MPV 10.3 fL (9.4-12.3) 02/06/22 04:08 Immature Gran % (Auto) 0.4 % (0.0-0.4) 02/06/22 04:08 Neut % (Auto) 70.1 % (45-73) 02/06/22 04:08 Lymph % (Auto) 17.4 % (20-40) L 02/06/22 04:08 [place] % (Auto) 8.8 % (2-11) 02/06/22 04:08 Eos % (Auto) 2.6 % (0-4) 02/06/22 04:08 Baso % (Auto) 0.7 % (0-2) 02/06/22 04:08 Lymph # (Auto) 2.9 X10*3/uL (1.2-4.9) 02/06/22 04:08 [place] # (Auto) 1.5 X10*3/uL (0.1-1.2) H 02/06/22 04:08 Eos # (Auto) 0.4 X10*3/uL (0.0-0.4) 02/06/22 04:08 Baso # (Auto) 0.1 X10*3/uL (0.0-0.2) 02/06/22 04:08 Abs Immat Gran (auto) 0.07 X10*3/uL (0.00-0.03) H 02/06/22 04:08 Absolute Neuts (auto) 11.7 x10*3/uL (2.0-8.3) H 02/06/22 04:08 Absolute Nucleated RBC 0.000 X10*3/uL (0.0-0.012) 02/06/22 04:08 Nucleated RBC % (auto) 0.0 /100WBC (0.0-0.2) 02/06/22 04:08 ESR 96 MM/HR (0-20) H 02/05/22 17:08 Sodium 138 mmol/L (135-145) 02/06/22 04:08 Potassium 4.9 mmol/L (3.3-5.1) 02/06/22 04:08 Chloride 101 mmol/L (96-108) 02/06/22 04:08 Carbon Dioxide 23 mmol/L (22-29) 02/06/22 04:08 Anion Gap 19 (12-20) 02/06/22 04:08 BUN 13 mg/dL (9-16) 02/06/22 04:08 Creatinine 0.87 mg/dL (0.5-1.4) 02/06/22 04:08 Estim Creat Clear Calc 80.6 02/06/22 04:08 Estimated GFR > 60 02/06/22 04:08 POC Glucose 279 mg/dL (60-115) H 02/06/22 14:17 Random Glucose 144 mg/dL (60-115) H 02/06/22 04:08 Lactic Acid 2.4 mmol/L (0.5-2.0) H* 02/05/22 17:08 Lactic Acid F/U @ 2Hr 1.7 mmol/L (0.5-2.0) 02/05/22 20:13 Calcium 8.4 mg/dL (8.4-10.2) D 02/06/22 04:08 Total Bilirubin 0.2 mg/dL (0.0-1.0) 02/05/22 17:08 Direct Bilirubin < 0.2 mg/dL (0.0-0.5) 02/05/22 17:08 AST 32 U/L (5-31) H D 02/05/22 17:08 ALT 18 U/L (0-31) 02/05/22 17:08 Alkaline Phosphatase 190 U/L (39-117) H 02/05/22 17:08 C-Reactive Protein 11.43 mg/dL (< or = 0.50) H 02/05/22 17:08 Total Protein 7.3 g/dL (6.5-8.0) 02/05/22 17:08 Albumin 3.5 g/dL (3.5-5.0) D 02/05/22 17:08 Lipase 18 U/L (8-78) 02/05/22 17:08 COVID-19 ([facility]) Negative (Negative) 02/05/22 19:47 COVID-19 Clin Com See Note 02/05/22 19:47 Impressions Foot X-Ray 02/05/22 17:30 IMPRESSION: Irregularity in the distal aspects of the fourth and fifth metatarsals may be postsurgical, but demonstrates some irregularity. Osteomyelitis cannot be excluded. Foot MRI 02/06/22 13:35 IMPRESSION: 1. 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 Although the signal abnormalities in this region are favored to be due in large part to progressive neuropathic arthropathy, superimposed osteomyelitis cannot be completely excluded in the context of adjacent midfoot wounds. No abscess. 2. Osteomyelitis at the distal margins of both 4th and 5th metatarsals. 3. Marrow edema signal and enhancement at the 2nd and 3rd metatarsal shafts, potentially due to stress reactions. No discrete fracture lines. 4. Intra-articular fracture at the 3rd toe proximal phalangeal base. Superimposed osteomyelitis cannot be excluded given the osseous changes in this region in the adjacent skin wound along the plantar/lateral margin of the proximal phalangeal base. Assessment and Plan (1) Osteomyelitis: Status: Acute She has open wound on the previous amputation site on the 4th and 5th toes on the right. She also has an ulcer on the plantar aspect of the foot. Her x-ray suggest changes of osteomyelitis on the remaining metatarsal. She does not want any further amputations at this time. She says she wants to proceed with IV antibiotic treatment I have changed her dressings and wrapped the foot with Kerlix roll. She has been seeing Dr. Peguero in the past because of her amputation. He should b e consulted as well because of this. Procedures Date of Service Date of Service: 02/06/22
[2022-02-06 16:00] VITALS: BP 99/64; PULSE 107; RESP 18; TEMP 37.5; O2SAT 95
[2022-02-06 16:35] LABS: Glucose, Whole Blood 286 mg/dL (60-115)
--- NOTE | 2022-02-06 16:39 | PC.NURSE ---
PATIENT HAD A HAM SANDWICH ,JELLO AND HERBER FABIANA FOR SNACK .
[2022-02-06] MEDS: Insulin Lispro 100 UNIT/ML 3 ML VIAL SUBCUT ×2 (16:52→21:28)
[2022-02-06 16:55] LABS: UPreg QC Valid YES; Urine Pregnancy NEGATIVE (NEGATIVE)
[2022-02-06 16:56] LABS: Appearance Urine Clear; Color Urine Yellow; Glucose Urine UA 500 mg/dL (Negative); Leukocyte Esterase Urine Negative (Negative); Nitrite Urine Negative (Negative); PH 6.5 (5.0-9.0); Specific Gravity - Urine 1.025 (1.005-1.025); UMIC TRIGGER UACC YES; Urine Blood Moderate (2+) (Negative); Urine Ketones 15 mg/dL (Negative); Urine Protein >=1000 (4+) mg/dL (Neg-Trace)
[2022-02-06 17:41] LABS: WBC Urine 0-5 /HPF (0-5)
[2022-02-06 17:42] LABS: Bacteria Urine None Seen (None Seen)
[2022-02-06 20:00] VITALS: BP 129/56; PULSE 100; TEMP 37.7; O2SAT 93
[2022-02-06 20:59] LABS: Glucose, Whole Blood 331 mg/dL (60-115)
[2022-02-06] MEDS: Insulin Glargine,Hum.rec.anlog 100 UNIT/ML 10 ML VIAL 68 UNIT SUBCUT (21:28)
[2022-02-07] MEDS: 0.9 % Sodium Chloride Flush 3 ML SYRINGE IVFLUSH ×3 (00:39→21:10)
[2022-02-07] MEDS: HYDROmorphone HCl 1 MG/ML SYRINGE 0.25 MG IVPUSH (00:40)
[2022-02-07 01:22] VITALS: BP 123/59; PULSE 96; RESP 15; TEMP 36.9; O2SAT 91
[2022-02-07 06:00] LABS: Glucose, Whole Blood 337 mg/dL (60-115)
[2022-02-07 06:32] VITALS: BP 119/59; PULSE 97; RESP 15; TEMP 36.9; O2SAT 95
[2022-02-07 07:31] LABS: Glucose, Whole Blood 176 mg/dL (60-115)
[2022-02-07] MEDS: amLODIPine Besylate 10 MG TABLET PO (07:37)
[2022-02-07] MEDS: Insulin Lispro 100 UNIT/ML 3 ML VIAL SUBCUT ×4 (07:37→21:04)
[2022-02-07] MEDS: Gabapentin 300 MG CAPSULE PO ×3 (07:37→21:05)
[2022-02-07] MEDS: Cyanocobalamin (Vitamin B-12) 1,000 MCG TABLET 1000 MCG PO (07:37)
[2022-02-07] MEDS: Atorvastatin Calcium 80 MG TABLET PO (07:37)
[2022-02-07] MEDS: Aspirin 81 MG TAB.CHEW PO (07:37)
[2022-02-07 08:59] VITALS: BP 105/45; PULSE 88; RESP 12; TEMP 37; O2SAT 95
--- NOTE | 2022-02-07 10:12 | P.CDIC_ITS ---
CDI Concurrent Query Documentation Clarification: PHYSICIAN'S DOCUMENTATION REQUEST Date of Query: 02/07/22 1012 Patient Name: Staci Shirley Admit Date: 02/05/22 Dear Doctor, A review of the medical record indicates additional documentation may be needed. Please review below and update the documentation accordingly. Clinical Indicators: Risk Factors/Clinical Indicators/Treatments PN: Assessment/plan: Diabetic neuropathy Continue Gabapentin. Please clarify the following regarding Diabetes Mellitus (DM): Diabetes neuropathy: Type/Etiology: Autonomic neuropathy Peripheral neuropathy Polyneuropathy Mononeuropathy Other or unknown Use of terms such as suspected, likely, concern for, or probable (associated with a specific diagnosis that is being evaluated, monitored, or treated as if it exists) are acceptable and can be coded in the inpatient setting, when docume nted at the time of discharge. Thank you, Edith Harrison [facility], CDIS Extension: [phone] Please use your independent medical judgment in providing your response. THIS QUERY IS PART OF THE PERMANENT MEDICAL RECORD Provider Response: Other Other Diagnosis: peripheral neuropathy
[2022-02-07] MEDS: Heparin Sodium,Porcine 5,000 UNIT/ML VIAL 5000 UNIT SUBCUT ×2 (10:30→21:05)
[2022-02-07 11:50] LABS: Glucose, Whole Blood 158 mg/dL (60-115)
[2022-02-07 14:30] VITALS: BP 150/63; PULSE 99; RESP 12; TEMP 37.7; O2SAT 91
--- NOTE | 2022-02-07 14:55 | P.PNIM_ITS ---
Subjective Subjective Date of Service: 06/24/22 Interval History: Patient is seen today. Denies any fever chills cough or sputum production. Denies any nausea vomiting. Physical Exam Vital Signs: Vital Signs: Last Vital Signs Temp 99.8 F 02/07/22 14:30 Pulse 99 02/07/22 14:30 Resp 12 02/07/22 14:30 BP 150/63 H 02/07/22 14:30 Pulse Ox 91 L 02/07/22 14:30 O2 Del Method 02/07/22 14:30 BMI result Body Mass Index 36.2 Gen: Appears be in no acute distress HEENT: NCAT, Moist mucosa. Pulmonary: Vesicular breath sounds, fair air entry CVS: Normal S1-S2 Abdomen: BS+, Soft, Nontender Extremities: Warm well perfused ; dressing in place for the foot ulcer Neuro: Alert and awake. Objective Data Active Medications Acetaminophen (Acetaminophen 325 Mg Tablet) 650 mg PO Q6H PRN PRN Reason: Pain, Mild (Pain Scale 1-3) Last Admin: 02/06/22 21:27 Dose: 650 mg Documented By: FARA Amlodipine Besylate (Amlodipine Besylate 10 Mg Tablet) 10 mg PO DAILY [facility]; Protocol Last Admin: 02/07/22 07:37 Dose: 10 mg Documented By: ADENIKE Aspirin (Aspirin 81 Mg Tab.Chew) 81 mg PO DAILY [facility] Last Admin: 02/07/22 07:37 Dose: 81 mg Documented By: ADENIKE Atorvastatin Calcium (Atorvastatin Calcium 80 Mg Tablet) 80 mg PO DAILY [facility] Last Admin: 02/07/22 07:37 Dose: 80 mg Documented By: ADENIKE Cyanocobalamin (Cyanocobalamin (Vitamin B-12) 1,000 Mcg Tablet) 1,000 mcg PO DAILY [facility] Last Admin: 02/07/22 07:37 Dose: 1,000 mcg Documented By: ADENIKE Dextrose (Dextrose 50 % 25 Gm/50 Ml Syringe) 25 gm IVPUSH Q15M PRN; Protocol PRN Reason: per Hypoglycemia Standing Ord. Docusate Sodium (Docusate Sodium 100 Mg Capsule) 100 mg PO DAILY PRN PRN Reason: Constipation Gabapentin (Gabapentin 300 Mg Capsule) 300 mg PO TID [facility] Last Admin: 02/07/22 14:03 Dose: 300 mg Documented By: ADENIKE Glucose (Glucose Gel 15 Gm Gel..Gram.) 15 gm PO Q15M PRN; Protocol PRN Reason: per Hypoglycemia Standing Ord. Heparin Sodium (Porcine) (Heparin Sodium,Porcine 5,000 Unit/Ml Vial) 5,000 unit SUBCUT Q12H [facility] Last Admin: 02/07/22 10:30 Dose: 5,000 unit Documented By: ADENIKE Hydromorphone HCl (Hydromorphone Hcl 1 Mg/Ml Syringe) 0.25 mg IVPUSH Q4H PRN; Protocol PRN Reason: Pain, Severe (Pain Scale 7-10) Last Admin: 02/07/22 00:40 Dose: 0.25 mg Documented By: CARLA Meropenem 1 gm/ Sodium (Chloride) 100 mls @ 200 mls/hr IV Q8H [facility] Last Infusion: 02/07/22 14:46 Dose: 0 mls/hr Documented By: ADENIKE Insulin Glargine (Insulin Glargine,Hum.Rec.Anlog 100 Unit/Ml 10 Ml Vial) 68 unit SUBCUT BEDTIME [facility] Last Admin: 02/06/22 21:28 Dose: 68 unit Documented By: FARA Insulin Human Lispro (Insulin Lispro 100 Unit/Ml 3 Ml Vial) 0 unit SUBCUT QIDACHS [facility]; Protocol Last Admin: 02/07/22 12:06 Dose: 2 unit Documented By: ADENIKE Naproxen (Naproxen 500 Mg Tablet) 500 mg PO BID PRN PRN Reason: Headache Last Admin: 02/06/22 08:11 Dose: 500 mg Documented By: ALLI Ondansetron HCl (Ondansetron Hcl 4 Mg/2 Ml Vial) 4 mg IVPUSH Q8H PRN PRN Reason: Nausea and Vomiting Last Admin: 02/06/22 08:10 Dose: 4 mg Documented By: ALLI Oxycodone HCl (Oxycodone Hcl Immed Release 5 Mg Tablet) 5 mg PO Q6H PRN PRN Reason: Pain, Severe (Pain Scale 7-10) Pharmacy Consult (Consult Rx Perform Med Rec) 1 each MISCELLANE ONCE PRN PRN Reason: Consult order Sodium Chloride (0.9 % Sodium Chloride Flush 3 Ml Syringe) [address] [facility] Last Admin: 02/07/22 14:03 Dose: Not Given Documented By: ADENIKE Non-Admin Reason: IV Running Labs 02/17/22 05:38 02/18/22 05:10 Labs: Laboratory Results - last 24 hr 02/06/22 02/06/22 02/06/22 16:29 16:38 16:38 POC Glucose 286 H Urine Color Yellow Urine Appearance Clear Urine pH 6.5 Ur Specific [place] 1.025 Urine Protein >=1000 (4+) H Urine Glucose (UA) 500 H Urine Ketones 15 Urine Blood Moderate (2+) H Urine Nitrite Negative Ur Leukocyte Esterase Negative Urine RBC 3-5 H Urine WBC 0-5 Ur Squamous Epith Cells 3-5 Urine Bacteria None Seen Hyaline Casts 3-5 Urine Test NEGATIVE 02/06/22 02/06/22 02/07/22 20:52 20:53 07:13 POC Glucose 331 H 337 H 176 H Urine Color Urine Appearance Urine pH Ur Specific [place] Urine Protein Urine Glucose (UA) Urine Ketones Urine Blood Urine Nitrite Ur Leukocyte Esterase Urine RBC Urine WBC Ur Squamous Epith Cells Urine Bacteria Hyaline Casts Urine Test 02/07/22 11:37 POC Glucose 158 H Urine Color Urine Appearance Urine pH Ur Specific [place] Urine Protein Urine Glucose (UA) Urine Ketones Urine Blood Urine Nitrite Ur Leukocyte Esterase Urine RBC Urine WBC Ur Squamous Epith Cells Urine Bacteria Hyaline Casts Urine Test Microbiology Microbiology Results: Microbiology 02/05/22 17:08 Blood Culture - Preliminary Blood - Venous No growth after 24 hours. 02/05/22 16:32 Blood Culture - Preliminary Blood - Venous No growth after 24 hours. Assessment and Plan (1) Diabetic foot infection: Status: Acute Plan 51-year-old female with a past medical history of hypertension, hyperlipidemia, diabetes, diabetic neuropathy, CHF, diabetic foot ulcer with chronic osteomyelitis, peripheral vascular disease, history of VRE infection presented to the hospital with pus-like discharge from her right foot ulcer. Severe Sepsis secondary to right-sided diabetic foot ulcer/osteomyelitis: on presentation pt has leukocytosis, tachy, lactic acidosis; AMY qualifying for severe sepsis. 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 with osteomyelitis- finished course of ertapenem? for 6 weeks, recently started on p.o. doxy plus lines were noted. Repeat foot x-ray showed irregular piece of the 4th and 5th metatarsals, osteomyelitis cannot be excluded consulted general surgery and ID for further recommendations. ?Follow up cultures c/w Meropenem 1gr IV q8h. Mild AMY: Patient's creatinine on presentation was 1.3.? Baseline 0.8.? Improved with IV fluids. ?nausea/ vomiting: Likely gastritis.? Benign abdominal examination.? Supportive care.? Advanced diet as tolerated.? Insulin-dependent diabetes:? Patient on Lantus plus sliding scale.? Monitor fingerstick glucose.? History of hypertension: Continue home amlodipine History of diabetic neuropathy: Continue home gabapentin History of CHF: Stable ?DVT prophylaxis:? Subcu heparin Code status: Full code Quality Stroke Does the patient have a stroke diagnosis?: No VTE Prior VTE?: No VTE Risk Level:: Medical - moderate - high VTE Device Contraindication: Treatment Not Indicated VTE Drug Contraindication: N/A - Med Ordered
[2022-02-07 17:08] LABS: Glucose, Whole Blood 218 mg/dL (60-115)
--- NOTE | 2022-02-07 19:49 | PC.NURSE ---
report given to biomedical engineering internship
--- NOTE | 2022-02-07 20:23 | PC.NURSE ---
pt ambulatory with walker to and from bathroom
[2022-02-07 20:40] VITALS: BP 140/70; PULSE 106; RESP 17; TEMP 36.8; O2SAT 95
[2022-02-07 20:52] LABS: Glucose, Whole Blood 222 mg/dL (60-115)
[2022-02-07] MEDS: Insulin Glargine,Hum.rec.anlog 100 UNIT/ML 10 ML VIAL 68 UNIT SUBCUT (21:04)
[2022-02-07] MEDS: oxyCODONE HCl Immed Release 5 MG TABLET PO (21:05)
[2022-02-07 23:48] VITALS: BP 136/63; PULSE 101; RESP 18; TEMP 37.2; O2SAT 95
[2022-02-08 03:30] VITALS: BP 144/69; PULSE 110; RESP 18; TEMP 37.2; O2SAT 96
[2022-02-08 04:12] LABS: Glucose, Whole Blood 152 mg/dL (60-115)
[2022-02-08 06:50] LABS: Basophils Absolute Auto 0.2 X10*3/uL (0.0-0.2); Basophils Percent Auto 0.6 % (0-2); Eosinophils Absolute Auto 0.2 X10*3/uL (0.0-0.4); Eosinophils Percent Auto 0.6 % (0-4); Hematocrit 31.2 % (37.0-47.0); Hemoglobin 9.9 g/dl (12.0-16.0); Imm Gran Abs Auto 0.17 X10*3/uL (0.00-0.03); Imm Gran Pct Auto 0.6 % (0.0-0.4); Lymphocytes Absolute Auto 3.3 X10*3/uL (1.2-4.9); MANUAL DIFF FLAG SCAN; Mean Corpuscular HGB Conc 31.7 g/dl (31.0-35.0); Mean Corpuscular Volume 81.9 fL (80.0-98.0); Mean Platelet Volume 10.4 fL (9.4-12.3); Monocytes Absolute Auto 2.7 X10*3/uL (0.1-1.2); Monocytes Percent Auto 10.1 % (2-11); Neutrophils Absolute Auto 20.8 x10*3/uL (2.0-8.3); Neutrophils Percent Auto 76.1 % (45-73); Platelet Count 556 X10*3/uL (160-400); Red Blood Count 3.81 X10*6/uL (4.20-5.50); Red Cell Distribution Width 13.6 % (11.0-16.0); SCAN SMEAR FLAG 1; White Blood Count 27.3 X10*3/uL (4.8-10.8)
[2022-02-08 07:27] VITALS: BP 121/61; PULSE 89; RESP 18; TEMP 36.7; O2SAT 96
[2022-02-08 07:29] LABS: SLIDE REVIEW VERIFIED
[2022-02-08 07:35] LABS: Anion Gap 16 (12-20); Blood Urea Nitrogen 14 mg/dL (9-16); Calcium 8.6 mg/dL (8.4-10.2); Carbon Dioxide 25 mmol/L (22-29); Chloride 99 mmol/L (96-108); Creatinine Clr Calc Pharmacy 75.3; Estimated Glomerular Filt Rate > 60; Glucose Random 161 mg/dL (60-115); Potassium 4.4 mmol/L (3.3-5.1); Sodium 136 mmol/L (135-145)
[2022-02-08 07:41] LABS: Glucose, Whole Blood 136 mg/dL (60-115)
[2022-02-08] MEDS: Heparin Sodium,Porcine 5,000 UNIT/ML VIAL 5000 UNIT SUBCUT (08:57)
[2022-02-08] MEDS: Gabapentin 300 MG CAPSULE PO ×3 (08:57→20:11)
[2022-02-08] MEDS: amLODIPine Besylate 10 MG TABLET PO (08:57)
[2022-02-08] MEDS: Atorvastatin Calcium 80 MG TABLET PO (08:57)
[2022-02-08] MEDS: Aspirin 81 MG TAB.CHEW PO (08:57)
[2022-02-08] MEDS: Cyanocobalamin (Vitamin B-12) 1,000 MCG TABLET 1000 MCG PO (08:57)
[2022-02-08] MEDS: 0.9 % Sodium Chloride Flush 3 ML SYRINGE IVFLUSH ×3 (09:04→20:12)
[2022-02-08] MEDS: oxyCODONE HCl Immed Release 5 MG TABLET PO (09:22)
--- NOTE | 2022-02-08 10:41 | HO.PM.IMPN ---
Subjective Subjective Date of Service: 02/08/22 Interval History: fever resolved pain controlled Physical Exam Vital Signs: Vital Signs: Last Vital Signs Temp 98.1 F 02/08/22 07:27 Pulse 89 02/08/22 07:27 Resp 18 02/08/22 07:27 BP 121/61 02/08/22 07:27 Pulse Ox 96 02/08/22 07:27 O2 Del Method 02/08/22 07:27 O2 Flow Rate 2 02/08/22 07:27 BMI result Body Mass Index 36.2 Gen: in no acute distress HEENT: sclera anicteric, moist mucus membranes Neck: supple Lungs: clear to auscultation bilaterally Heart: regular rate and rhythm, no murmurs Abd: soft, non-tender, non-distended Ext: no edema, s/p L TMT, s/p R 4th + 5th toe amputations, large R foot plantar/lateral ulcer Skin: warm/well-perfused Neuro: alert and oriented x3, no focal findings Psych: appropriate affect Objective Data Active Medications Acetaminophen (Acetaminophen 325 Mg Tablet) 650 mg PO Q6H PRN PRN Reason: Pain, Mild (Pain Scale 1-3) Last Admin: 02/06/22 21:27 Dose: 650 mg Documented By: FARA Amlodipine Besylate (Amlodipine Besylate 10 Mg Tablet) 10 mg PO DAILY [facility]; Protocol Last Admin: 02/08/22 08:57 Dose: 10 mg Documented By: MAYUR Aspirin (Aspirin 81 Mg Tab.Chew) 81 mg PO DAILY [facility] Last Admin: 02/08/22 08:57 Dose: 81 mg Documented By: MAYUR Atorvastatin Calcium (Atorvastatin Calcium 80 Mg Tablet) 80 mg PO DAILY [facility] Last Admin: 02/08/22 08:57 Dose: 80 mg Documented By: MAYUR Cyanocobalamin (Cyanocobalamin (Vitamin B-12) 1,000 Mcg Tablet) 1,000 mcg PO DAILY [facility] Last Admin: 02/08/22 08:57 Dose: 1,000 mcg Documented By: MAYUR Dextrose (Dextrose 50 % 25 Gm/50 Ml Syringe) 25 gm IVPUSH Q15M PRN; Protocol PRN Reason: per Hypoglycemia Standing Ord. Docusate Sodium (Docusate Sodium 100 Mg Capsule) 100 mg PO DAILY PRN PRN Reason: Constipation Gabapentin (Gabapentin 300 Mg Capsule) 300 mg PO TID [facility] Last Admin: 02/08/22 08:57 Dose: 300 mg Documented By: MAYUR Glucose (Glucose Gel 15 Gm Gel..Gram.) 15 gm PO Q15M PRN; Protocol PRN Reason: per Hypoglycemia Standing Ord. Heparin Sodium (Porcine) (Heparin Sodium,Porcine 5,000 Unit/Ml Vial) 5,000 unit SUBCUT Q12H [facility] Last Admin: 02/08/22 08:57 Dose: 5,000 unit Documented By: MAYUR Hydromorphone HCl (Hydromorphone Hcl 1 Mg/Ml Syringe) 0.25 mg IVPUSH Q4H PRN; Protocol PRN Reason: Pain, Severe (Pain Scale 7-10) Last Admin: 02/07/22 00:40 Dose: 0.25 mg Documented By: CARLA Meropenem 1 gm/ Sodium (Chloride) 100 mls @ 200 mls/hr IV Q8H [facility] Last Infusion: 02/08/22 06:30 Dose: 0 mls/hr Documented By: ONEYDARISMarquez Insulin Glargine (Insulin Glargine,Hum.Rec.Anlog 100 Unit/Ml 10 Ml Vial) 68 unit SUBCUT BEDTIME [facility] Last Admin: 02/07/22 21:04 Dose: 68 unit Documented By: EARL Insulin Human Lispro (Insulin Lispro 100 Unit/Ml 3 Ml Vial) 0 unit SUBCUT QIDACHS [facility]; Protocol Last Admin: 02/08/22 08:45 Dose: Not Given Documented By: MAYUR Non-Admin Reason: Not In Room Naproxen (Naproxen 500 Mg Tablet) 500 mg PO BID PRN PRN Reason: Headache Last Admin: 02/06/22 08:11 Dose: 500 mg Documented By: ALLI Ondansetron HCl (Ondansetron Hcl 4 Mg/2 Ml Vial) 4 mg IVPUSH Q8H PRN PRN Reason: Nausea and Vomiting Last Admin: 02/06/22 08:10 Dose: 4 mg Documented By: ALLI Oxycodone HCl (Oxycodone Hcl Immed Release 5 Mg Tablet) 5 mg PO Q6H PRN PRN Reason: Pain, Severe (Pain Scale 7-10) Last Admin: 02/08/22 09:22 Dose: 5 mg Documented By: MAYUR Pharmacy Consult (Consult Rx Perform Med Rec) 1 each MISCELLANE ONCE PRN PRN Reason: Consult order Sodium Chloride (0.9 % Sodium Chloride Flush 3 Ml Syringe) 3 ml IVFLUSH QSHIFT [facility] Last Admin: 02/08/22 09:04 Dose: 3 ml Documented By: MAYUR Labs CBC & Chem 7: 02/08/22 05:29 02/08/22 05:29 Labs: Laboratory Results - last 24 hr 02/07/22 02/07/22 02/07/22 11:37 16:56 20:48 MCV MCH MCHC RDW Plt Count MPV Immature Gran % (Auto) Neut % (Auto) Lymph % (Auto) [place] % (Auto) Eos % (Auto) Baso % (Auto) Lymph # (Auto) [place] # (Auto) Eos # (Auto) Baso # (Auto) Abs Immat Gran (auto) Absolute Neuts (auto) Absolute Nucleated RBC Nucleated RBC % (auto) Smear Tech's Comments Anion Gap Estim Creat Clear Calc Estimated GFR POC Glucose 158 H 218 H 222 H Random Glucose Calcium 02/08/22 02/08/22 02/08/22 03:41 05:29 05:29 MCV 81.9 MCH 26.0 L MCHC 31.7 RDW 13.6 Plt Count 556 H MPV 10.4 Immature Gran % (Auto) 0.6 H Neut % (Auto) 76.1 H Lymph % (Auto) 12.0 L [place] % (Auto) 10.1 Eos % (Auto) 0.6 Baso % (Auto) 0.6 Lymph # (Auto) 3.3 [place] # (Auto) 2.7 H Eos # (Auto) 0.2 Baso # (Auto) 0.2 Abs Immat Gran (auto) 0.17 H Absolute Neuts (auto) 20.8 H Absolute Nucleated RBC 0.000 Nucleated RBC % (auto) 0.0 Smear Tech's Comments VERIFIED Anion Gap 16 Estim Creat Clear Calc 75.3 Estimated GFR > 60 POC Glucose 152 H Random Glucose 161 H Calcium 8.6 02/08/22 07:25 MCV MCH MCHC RDW Plt Count MPV Immature Gran % (Auto) Neut % (Auto) Lymph % (Auto) [place] % (Auto) Eos % (Auto) Baso % (Auto) Lymph # (Auto) [place] # (Auto) Eos # (Auto) Baso # (Auto) Abs Immat Gran (auto) Absolute Neuts (auto) Absolute Nucleated RBC Nucleated RBC % (auto) Smear Tech's Comments Anion Gap Estim Creat Clear Calc Estimated GFR POC Glucose 136 H Random Glucose Calcium ITS Impressions Foot X-Ray 02/05/22 17:30 IMPRESSION: Irregularity in the distal aspects of the fourth and fifth metatarsals may be postsurgical, but demonstrates some irregularity. Osteomyelitis cannot be excluded. Foot MRI 02/06/22 13:35 IMPRESSION: 1. 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 Although the signal abnormalities in this region are favored to be due in large part to progressive neuropathic arthropathy, superimposed osteomyelitis cannot be completely excluded in the context of adjacent midfoot wounds. No abscess. 2. Osteomyelitis at the distal margins of both 4th and 5th metatarsals. 3. Marrow edema signal and enhancement at the 2nd and 3rd metatarsal shafts, potentially due to stress reactions. No discrete fracture lines. 4. Intra-articular fracture at the 3rd toe proximal phalangeal base. Superimposed osteomyelitis cannot be excluded given the osseous changes in this region in the adjacent skin wound along the plantar/lateral margin of the proximal phalangeal base. Microbiology Microbiology Results: Microbiology 02/05/22 17:08 Blood Culture - Preliminary Blood - Venous No growth after 48 hours. 02/05/22 16:32 Blood Culture - Preliminary Blood - Venous No growth after 48 hours. Assessment and Plan (1) Osteomyelitis: Status: Acute Plan d#4 51yo F with HTN, HLD, DM, DM neuropathy + arthropathy, CHF, DFU with chronic osteo, PAD, hx VRE infection, hx L TMTA, hx R 4th + 5th toe amputations presented with purulent discharge from R foot ulcer admitted for severe sepsis due to osteomyelitis # severe sepsis due to infected DFU/osteomyelitis - recently finished 6 wk of ertapenem and was started on doxycycline + linezolid - currently on meropenem d#4 - ID consultation, PICC line # PVD - ASA, atorvastatin - vascular surgery consultation # AMY, prerenal vs septic ATN - resolved p IV fluids # N/V - resolved # HTN - amlodipine # CHF, hx of - euvolemic # DM2 - basal-bolus insulin # DM neuropathy - gabapentin # VTE ppx: LMWH In my clinical judgment, the patient requires continued hospitalization for the following reasons: IV ABX Quality Stroke Does the patient have a stroke diagnosis?: No VTE Prior VTE?: No VTE Risk Level:: Medical - moderate - high VTE Device Contraindication: Treatment Not Indicated VTE Drug Contraindication: N/A - Med Ordered
--- NOTE | 2022-02-08 11:13 | PM.CNGS ---
History of Present Illness Consult details Consult date: 02/08/22 Reason for consult: wound care Narrative: Complex 51-year-old female well known to me. She presents to the hospital for follow-up regarding nonhealing right foot ulcerations. Should develop blistering. She has been treated and was subsequently sent in for IV antibiotic therapy. At the time of my examination she was undergoing placement of PICC line. Review of Systems Review of Systems: Yes all other systems are reviewed and are negative Constitutional: Constitutional: Reports no additional constitutional complaints ENT: Reports Normal hearing present Cardiovascular: Cardiovascular: Denies chest pain, Denies chest pain at rest, Denies chest pain with activity and Denies pedal edema Respiratory: Respiratory: Denies cough Gastrointestinal: Gastrointestinal: Denies abdominal pain Musculoskeletal: Musculoskeletal: Denies abnormal gait, Denies muscle cramps and Denies radiating pain into limb Integumentary/Breasts: Skin/Breast: Denies skin ulcer and Denies wounds Neurologic: Reports Normal hearing present and Denies abnormal gait Psychiatric: Psychiatric: Reports no additional psychiatric complaints PMFSH Past Medical History Medical History (Updated 02/06/22 @ 15:48 by Christo Feng MD) Abscess Amputated toe of left foot Amputation of left foot BMI 39.0-39.9,adult Chronic heart failure with preserved ejection fraction (HFpEF) Chronic osteomyelitis of foot Diabetes Diabetic foot infection Hyperlipidemia Hypertension Insulin dependent diabetes mellitus Neuropathy Obesity Osteomyelitis Osteomyelitis PAD (peripheral artery disease) Type 2 diabetes mellitus with unspecified complications Vitamin B12 deficiency VRE (vancomycin resistant enterococcus) culture positive Family History Family History Mother Diabetes Hypertension Disk prolapse Father Diabetes Hypertension Sister No problems noted. Brother No problems noted. Daughter No problems noted. Son No problems noted. Surgical History Surgical History H/O spinal fusion History of amputation of left foot History of section History of tubal ligation Status post amputation of toe of right foot Social History Social History Household Members: Significant Other Household Members Other:: Housing: Apartment Do you presently have visiting nurse or other home services: Yes Alcohol intake: never Patient Tobacco Use Status: Never used Tobacco e-Cigarette/Vaping Use: Never Used Second Hand Smoke Exposure: No Advance Directives Date on File: 02/15/21 service: No Current occupational status: unemployed Meds Allergies Allergy/AdvReac Type Severity Reaction Status Date / Time No Known Allergies Allergy Verified 01/18/22 11:19 [No Known Allergies*] Active Medications: Current Medications Acetaminophen (Acetaminophen 325 Mg Tablet) 650 mg PO Q6H PRN PRN Reason: Pain, Mild (Pain Scale 1-3) Last Admin: 02/06/22 21:27 Dose: 650 mg Amlodipine Besylate (Amlodipine Besylate 10 Mg Tablet) 10 mg PO DAILY [facility]; Protocol Last Admin: 02/08/22 08:57 Dose: 10 mg Aspirin (Aspirin 81 Mg Tab.Chew) 81 mg PO DAILY [facility] Last Admin: 02/08/22 08:57 Dose: 81 mg Atorvastatin Calcium (Atorvastatin Calcium 80 Mg Tablet) 80 mg PO DAILY [facility] Last Admin: 02/08/22 08:57 Dose: 80 mg Cyanocobalamin (Cyanocobalamin (Vitamin B-12) 1,000 Mcg Tablet) 1,000 mcg PO DAILY [facility] Last Admin: 02/08/22 08:57 Dose: 1,000 mcg Dextrose (Dextrose 50 % 25 Gm/50 Ml Syringe) 25 gm IVPUSH Q15M PRN; Protocol PRN Reason: per Hypoglycemia Standing Ord. Docusate Sodium (Docusate Sodium 100 Mg Capsule) 100 mg PO DAILY PRN PRN Reason: Constipation Enoxaparin Sodium (Enoxaparin Sodium 40 Mg/0.4 Ml Syringe) 40 mg SUBCUT Q24H [facility] Gabapentin (Gabapentin 300 Mg Capsule) 300 mg PO TID [facility] Last Admin: 02/08/22 08:57 Dose: 300 mg Glucose (Glucose Gel 15 Gm Gel..Gram.) 15 gm PO Q15M PRN; Protocol PRN Reason: per Hypoglycemia Standing Ord. Hydromorphone HCl (Hydromorphone Hcl 1 Mg/Ml Syringe) 0.25 mg IVPUSH Q4H PRN; Protocol PRN Reason: Pain, Severe (Pain Scale 7-10) Last Admin: 02/07/22 00:40 Dose: 0.25 mg Meropenem 1 gm/ Sodium (Chloride) 100 mls @ 200 mls/hr IV Q8H [facility] Last Infusion: 02/08/22 06:30 Dose: Infused Insulin Glargine (Insulin Glargine,Hum.Rec.Anlog 100 Unit/Ml 10 Ml Vial) 68 unit SUBCUT BEDTIME [facility] Last Admin: 02/07/22 21:04 Dose: 68 unit Insulin Human Lispro (Insulin Lispro 100 Unit/Ml 3 Ml Vial) 0 unit SUBCUT QIDACHS [facility]; Protocol Last Admin: 02/08/22 08:45 Dose: Not Given Naproxen (Naproxen 500 Mg Tablet) 500 mg PO BID PRN PRN Reason: Headache Last Admin: 02/06/22 08:11 Dose: 500 mg Ondansetron HCl (Ondansetron Hcl 4 Mg/2 Ml Vial) 4 mg IVPUSH Q8H PRN PRN Reason: Nausea and Vomiting Last Admin: 02/06/22 08:10 Dose: 4 mg Oxycodone HCl (Oxycodone Hcl Immed Release 5 Mg Tablet) 5 mg PO Q6H PRN PRN Reason: Pain, Severe (Pain Scale 7-10) Last Admin: 02/08/22 09:22 Dose: 5 mg Pharmacy Consult (Consult Rx Perform Med Rec) 1 each MISCELLANE ONCE PRN PRN Reason: Consult order Sodium Chloride (0.9 % Sodium Chloride Flush 3 Ml Syringe) [facility] Admin: 02/08/22 09:04 Dose: 3 ml Home Medications Medication Instructions Recorded Confirmed Last Taken Type amlodipine 10 mg tablet 1 tab PO DAILY 03/19/20 02/05/22 02/05/22 History gabapentin 300 mg capsule 1 cap PO TID 03/19/20 02/05/22 11/28/21 History insulin aspart U-100 100 unit/mL 25 unit subcut TIDAC 03/19/20 02/05/22 11/29/21 History subcutaneous solution (Novolog U-100 Insulin aspart) aspirin 81 mg chewable tablet 81 mg PO DAILY 06/17/21 02/05/22 11/28/21 History blood-glucose meter (FreeStyle #1 ea 07/03/21 11/28/21 History [place] Lite kit) insulin glargine 100 unit/mL 90 unit subcut BEDTIME 09/13/21 02/05/22 11/28/21 History subcutaneous solution (Lantus U-100 Insulin) atorvastatin 80 mg tablet 80 mg PO DAILY 11/29/21 02/05/22 11/28/21 History dulaglutide 0.75 mg/0.5 mL 0.75 mg subcut TU@1000 02/05/22 02/05/22 02/05/22 History subcutaneous pen injector (Trulicity) naproxen 500 mg tablet 500 mg PO BID PRN Headache 02/05/22 02/05/22 Unknown History urea 20 % topical cream 1 appl topical DAILY 02/05/22 02/05/22 Unknown History Physical Exam Vital Signs: Vital Signs: Last Vital Signs Temp 98.1 F 02/08/22 07:27 Pulse 89 02/08/22 07:27 Resp 18 02/08/22 07:27 BP 121/61 02/08/22 07:27 Pulse Ox 96 02/08/22 07:27 O2 Del Method 02/08/22 07:27 O2 Flow Rate 2 02/08/22 07:27 BMI result Body Mass Index 36.2 Const: General: cooperative, healthy appearing and comfortable Orientation/consciousness: oriented to person, oriented to place and oriented to time HEENT: Head: Yes normal to inspection Neck: Neck: Yes normal visual inspection Carotids: no bruits Chest: Chest palpation & inspection: normal inspection of the chest Resp: Effort & Inspection: normal respiratory effort and able to speak in complete sentences Auscultation: clear to auscultation bilaterally, no crackles, no rales, no rhonchi and no wheezes Cardio: Rate: regular rate Rhythm: regular rhythm Heart sounds: S1 normal heart sound present and S2 normal heart sound present Bruits: no carotid bruits Peripheral pulses: Peripheral pulses 2+ throughout GI: Inspection: Yes normal to inspection Skin: Other: Right foot opening at amputation site. There is some mild drainage but overall a pretty good granulation base. Wounds: no wounds Hair: normal Neuro: General: oriented to person, oriented to place and oriented to time Cranial nerves: Yes CN's II-XII intact bilaterally and Yes Normal hearing present Cognition (Neuro): normal cognition Motor exam (neuro): 5/5 motor strength present throughout Extrem: Other: venous exam: No significant superficial varicosities or spider telangiectasias, minimal edema General: No clubbing, No cyanosis and No edema Psych: Appearance: grossly normal Mental Status: mental status grossly normal Speech and movement: Normal speech and movement present Results Labs Result diagrams: 02/08/22 05:29 02/08/22 05:29 Labs: Abnormal lab results 02/07/22 02/07/22 02/07/22 Range/Units 11:37 16:56 20:48 WBC (4.8-10.8) X10*3/uL RBC (4.20-5.50) X10*6/uL Hgb (12.0-16.0) g/dl Hct (37.0-47.0) % MCH (27.0-33.0) pg Plt Count (160-400) X10*3/uL Immature Gran % (Auto) (0.0-0.4) % Neut % (Auto) (45-73) % Lymph % (Auto) (20-40) % [place] # (Auto) (0.1-1.2) X10*3/uL Abs Immat Gran (auto) (0.00-0.03) X10*3/uL Absolute Neuts (auto) (2.0-8.3) x10*3/uL POC Glucose 158 H 218 H 222 H (60-115) mg/dL Random Glucose (60-115) mg/dL 02/08/22 02/08/22 02/08/22 Range/Units 03:41 05:29 05:29 WBC 27.3 H (4.8-10.8) X10*3/uL RBC 3.81 L (4.20-5.50) X10*6/uL Hgb 9.9 L (12.0-16.0) g/dl Hct 31.2 L (37.0-47.0) % MCH 26.0 L (27.0-33.0) pg Plt Count 556 H (160-400) X10*3/uL Immature Gran % (Auto) 0.6 H (0.0-0.4) % Neut % (Auto) 76.1 H (45-73) % Lymph % (Auto) 12.0 L (20-40) % [place] # (Auto) 2.7 H (0.1-1.2) X10*3/uL Abs Immat Gran (auto) 0.17 H (0.00-0.03) X10*3/uL Absolute Neuts (auto) 20.8 H (2.0-8.3) x10*3/uL POC Glucose 152 H (60-115) mg/dL Random Glucose 161 H (60-115) mg/dL 02/08/22 Range/Units 07:25 WBC (4.8-10.8) X10*3/uL RBC (4.20-5.50) X10*6/uL Hgb (12.0-16.0) g/dl Hct (37.0-47.0) % MCH (27.0-33.0) pg Plt Count (160-400) X10*3/uL Immature Gran % (Auto) (0.0-0.4) % Neut % (Auto) (45-73) % Lymph % (Auto) (20-40) % [place] # (Auto) (0.1-1.2) X10*3/uL Abs Immat Gran (auto) (0.00-0.03) X10*3/uL Absolute Neuts (auto) (2.0-8.3) x10*3/uL POC Glucose 136 H (60-115) mg/dL Random Glucose (60-115) mg/dL Short CBC 02/08/22 Range/Units 05:29 WBC 27.3 H (4.8-10.8) X10*3/uL Hgb 9.9 L (12.0-16.0) g/dl Hct 31.2 L (37.0-47.0) % Plt Count 556 H (160-400) X10*3/uL BMP 02/08/22 05:29 Sodium 136 Potassium 4.4 Chloride 99 Carbon Dioxide 25 BUN 14 Creatinine 0.93 Calcium 8.6 Urine 02/06/22 02/06/22 Range/Units 16:38 16:38 Urine Color Yellow Urine Appearance Clear Urine pH 6.5 (5.0-9.0) Ur Specific [place] 1.025 (1.005-1.025) Urine Protein >=1000 (4+) H (Neg-Trace) mg/dL Urine Glucose (UA) 500 H (Negative) mg/dL Urine Test NEGATIVE (NEGATIVE) All other labs normal. Assessment and Plan (1) PAD (peripheral artery disease): Status: Acute Plan In short patient has nonhealing amputation site along with underlying osteomyelitis. I did have an opportunity to review the MRI which was positive for osteo. She most likely recur will require IV antibiotics. Arterial testing from 09/09 demonstrates adequate perfusion to the foot. At the current time will continue with local wound care and antibiotics. We will follow with you. Thank you for allowing us to assist in her care. Procedures Date of Service Date of Service: 02/08/22
--- NOTE | 2022-02-08 11:28 | HO.PICC ---
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 Following completion of [place] Protocol the skin and soft tissues were anesthetized with 1% Lidocaine plain. Using ultrasound guidance, Left brachial vein access was obtained in a single attempt by this RN. Over an 0.018 wire through peel-away sheath, a 4 [place] single lumen PASV PowerPICC Solo line was positioned. Catheter length is 42cm internal length, 0 cm external length, for a total trimmed length of 42 cm. The procedure was performed in S272. Tip verification was performed by Rober Sands with Ofelia 3CG. Tip located in SVC. Ultrasound was used to document vein patency and for needle entry. A formal ultrasound picture and cardiac rhythm strip was recorded. Vascular Bulk Driver has released the line for use and it is currently dressed with a StatLock, Tegaderm, and CHG disc. Verification has been performed for blood return and line patency. Arm Circumference: 38 cm Equipment: 4 [place] single lumen PASV PowerPICC Solo Catheter Type: 4 [place] single lumen PASV PowerPICC Solo Lot #: [id number]
[2022-02-08 11:58] VITALS: BP 144/64; PULSE 94; RESP 18; TEMP 36.9; O2SAT 93
[2022-02-08 12:11] LABS: Glucose, Whole Blood 197 mg/dL (60-115)
[2022-02-08] MEDS: Insulin Lispro 100 UNIT/ML 3 ML VIAL SUBCUT ×3 (12:26→20:11)
--- NOTE | 2022-02-08 12:34 | MHC.CM.PN ---
Patient continues with IV ABTs, plan for PICC. No d/c today. CM will follow for d/c planning needs.
[2022-02-08] MEDS: 0.9 % Sodium Chloride Flush 10 ML SYRINGE 5 ML IVFLUSH ×2 (14:29→20:13)
[2022-02-08 15:44] VITALS: BP 130/64; PULSE 106; RESP 17; TEMP 37.8; O2SAT 92
[2022-02-08 15:59] LABS: Glucose, Whole Blood 215 mg/dL (60-115)
[2022-02-08 19:36] VITALS: BP 144/60; PULSE 108; RESP 16; TEMP 38.1; O2SAT 92
[2022-02-08 19:51] LABS: Glucose, Whole Blood 201 mg/dL (60-115)
[2022-02-08] MEDS: Acetaminophen 325 MG TABLET 650 MG PO (20:11)
[2022-02-08] MEDS: Insulin Glargine,Hum.rec.anlog 100 UNIT/ML 10 ML VIAL 68 UNIT SUBCUT (20:11)
[2022-02-09] VITALS: BP 132/61; PULSE 86; RESP 19; TEMP 37.4; O2SAT 92
[2022-02-09 03:06] VITALS: BP 143/67; PULSE 92; RESP 19; TEMP 37.2; O2SAT 91
[2022-02-09 06:04] LABS: Hematocrit 28.4 % (37.0-47.0); Hemoglobin 8.9 g/dl (12.0-16.0); Mean Corpuscular HGB Conc 31.3 g/dl (31.0-35.0); Mean Corpuscular Hemoglobin 25.6 pg (27.0-33.0); Mean Corpuscular Volume 81.8 fL (80.0-98.0); Mean Platelet Volume 10.5 fL (9.4-12.3); Platelet Count 519 X10*3/uL (160-400); Red Blood Count 3.47 X10*6/uL (4.20-5.50); Red Cell Distribution Width 13.4 % (11.0-16.0); White Blood Count 28.5 X10*3/uL (4.8-10.8)
[2022-02-09] MEDS: Acetaminophen 325 MG TABLET 650 MG PO ×2 (06:30→18:24)
[2022-02-09 06:39] LABS: Erythrocyte Sedimentation Rate 114 MM/HR (0-20)
[2022-02-09 06:42] LABS: Anion Gap 16 (12-20); Blood Urea Nitrogen 15 mg/dL (9-16); Calcium 8.8 mg/dL (8.4-10.2); Carbon Dioxide 27 mmol/L (22-29); Chloride 99 mmol/L (96-108); Creatinine Clr Calc Pharmacy 67.4; Estimated Glomerular Filt Rate 56; Glucose Random 167 mg/dL (60-115); Potassium 4.5 mmol/L (3.3-5.1); Sodium 137 mmol/L (135-145)
[2022-02-09 06:58] LABS: C Reactive Protein 38.87 mg/dL (< or = 0.50)
[2022-02-09 07:39] LABS: Retic HGB Equivalent 27.3 pg (30.0-35.0); Reticulocyte Percent 1.4 % (0.5-1.8)
[2022-02-09 07:50] LABS: Iron 17 mcg/dL (30-160); Lactate Dehydrogenase 265 U/L (122-220); Percent Iron Saturation 9 % (15-50); Total Iron Binding Capacity 180 mcg/dL (228-428); Unsaturated Iron Binding 163 ug/dL
[2022-02-09 08:00] VITALS: BP 139/64; PULSE 101; RESP 15; TEMP 37.9; O2SAT 95
[2022-02-09 08:10] LABS: Glucose, Whole Blood 140 mg/dL (60-115)
[2022-02-09 08:11] LABS: Ferritin 262 ng/mL (10-250)
--- NOTE | 2022-02-09 08:12 | P.PNIM_ITS ---
Subjective Subjective Date of Service: 02/09/22 Interval History: febrile to 100.6 at 19:36 100.3 now PICC placed yesterday foot pain controlled Review of Systems Review of Systems: Yes all other systems are reviewed and are negative Physical Exam Vital Signs: Vital Signs: Last Vital Signs Temp 99.0 F 02/09/22 03:06 Pulse 92 02/09/22 03:06 Resp 19 02/09/22 03:06 BP 143/67 H 02/09/22 03:06 Pulse Ox 91 L 02/09/22 03:06 O2 Del Method 02/09/22 03:06 O2 Flow Rate 2 02/09/22 03:06 BMI result Body Mass Index 36.2 Gen: in no acute distress HEENT: sclera anicteric, moist mucus membranes Neck: supple Lungs: clear to auscultation bilaterally Heart: regular rate and rhythm, no murmurs Abd: soft, non-tender, non-distended Ext: no edema, s/p L TMT, s/p R 4th + 5th toe amputations, large R foot plantar/lateral ulcer Skin: warm/well-perfused Neuro: alert and oriented x3, no focal findings Psych: appropriate affect ? Objective Data Active Medications Acetaminophen (Acetaminophen 325 Mg Tablet) 650 mg PO Q6H PRN PRN Reason: Pain, Mild (Pain Scale 1-3) Last Admin: 02/09/22 06:30 Dose: 650 mg Documented By: MICHELLE Amlodipine Besylate (Amlodipine Besylate 10 Mg Tablet) 10 mg PO DAILY [facility]; Protocol Last Admin: 02/08/22 08:57 Dose: 10 mg Documented By: MAYUR Aspirin (Aspirin 81 Mg Tab.Chew) 81 mg PO DAILY [facility] Last Admin: 02/08/22 08:57 Dose: 81 mg Documented By: MAYUR Atorvastatin Calcium (Atorvastatin Calcium 80 Mg Tablet) 80 mg PO DAILY [facility] Last Admin: 02/08/22 08:57 Dose: 80 mg Documented By: MAYUR Cyanocobalamin (Cyanocobalamin (Vitamin B-12) 1,000 Mcg Tablet) 1,000 mcg PO DAILY [facility] Last Admin: 02/08/22 08:57 Dose: 1,000 mcg Documented By: MAYUR Dextrose (Dextrose 50 % 25 Gm/50 Ml Syringe) 25 gm IVPUSH Q15M PRN; Protocol PRN Reason: per Hypoglycemia Standing Ord. Docusate Sodium (Docusate Sodium 100 Mg Capsule) 100 mg PO DAILY PRN PRN Reason: Constipation Enoxaparin Sodium (Enoxaparin Sodium 40 Mg/0.4 Ml Syringe) 40 mg SUBCUT Q24H [facility] Last Admin: 02/08/22 11:29 Dose: Not Given Documented By: MAYUR Non-Admin Reason: md shawn titus Gabapentin (Gabapentin 300 Mg Capsule) 300 mg PO TID [facility] Last Admin: 02/08/22 20:11 Dose: 300 mg Documented By: MICHELLE Glucose (Glucose Gel 15 Gm Gel..Gram.) 15 gm PO Q15M PRN; Protocol PRN Reason: per Hypoglycemia Standing Ord. Hydromorphone HCl (Hydromorphone Hcl 1 Mg/Ml Syringe) 0.25 mg IVPUSH Q4H PRN; Protocol PRN Reason: Pain, Severe (Pain Scale 7-10) Last Admin: 02/07/22 00:40 Dose: 0.25 mg Documented By: CARLA Meropenem 1 gm/ Sodium (Chloride) 100 mls @ 200 mls/hr IV Q8H [facility] Last Infusion: 02/09/22 08:07 Dose: 100 mls/hr Documented By: MICK Insulin Glargine (Insulin Glargine,Hum.Rec.Anlog 100 Unit/Ml 10 Ml Vial) 68 unit SUBCUT BEDTIME [facility] Last Admin: 02/08/22 20:11 Dose: 68 unit Documented By: MICHELLE Insulin Human Lispro (Insulin Lispro 100 Unit/Ml 3 Ml Vial) 0 unit SUBCUT QIDACHS [facility]; Protocol Last Admin: 02/08/22 20:11 Dose: 4 unit Documented By: MICHELLE Naproxen (Naproxen 500 Mg Tablet) 500 mg PO BID PRN PRN Reason: Headache Last Admin: 02/06/22 08:11 Dose: 500 mg Documented By: ALLI Ondansetron HCl (Ondansetron Hcl 4 Mg/2 Ml Vial) 4 mg IVPUSH Q8H PRN PRN Reason: Nausea and Vomiting Last Admin: 02/06/22 08:10 Dose: 4 mg Documented By: ALLI Oxycodone HCl (Oxycodone Hcl Immed Release 5 Mg Tablet) 5 mg PO Q6H PRN PRN Reason: Pain, Severe (Pain Scale 7-10) Last Admin: 02/08/22 09:22 Dose: 5 mg Documented By: MAYUR Pharmacy Consult (Consult Rx Perform Med Rec) 1 each MISCELLANE ONCE PRN PRN Reason: Consult order Sodium Chloride (0.9 % Sodium Chloride Flush 3 Ml Syringe) 3 ml IVFLUSH QSHIFT [facility] Last Admin: 02/08/22 20:12 Dose: 3 ml Documented By: MICHELLE Sodium Chloride (0.9 % Sodium Chloride Flush 10 Ml Syringe) 5 ml IVFLUSH TID [facility] Last Admin: 02/08/22 20:13 Dose: 5 ml Documented By: MICHELLE Labs CBC & Chem 7: 02/09/22 05:10 02/09/22 05:09 Labs: Laboratory Results - last 24 hr 02/08/22 02/08/22 02/08/22 12:02 15:49 19:46 MCV MCH MCHC RDW Plt Count MPV Absolute Nucleated RBC Nucleated RBC % (auto) ESR Absolute Retic Percent Retic Immature Retic Fraction Retic Hgb Equivalent Anion Gap Estim Creat Clear Calc Estimated GFR POC Glucose 197 H 215 H 201 H Random Glucose Calcium Iron TIBC % Saturation Unsat Iron Binding Ferritin Lactate Dehydrogenase C-Reactive Protein 02/09/22 02/09/22 02/09/22 05:09 05:09 05:10 MCV 81.8 MCH 25.6 L MCHC 31.3 RDW 13.4 Plt Count 519 H MPV 10.5 Absolute Nucleated RBC 0.000 Nucleated RBC % (auto) 0.0 ESR 114 H Absolute Retic 0.050 Percent Retic 1.4 Immature Retic Fraction 20.0 H Retic Hgb Equivalent 27.3 L Anion Gap 16 Estim Creat Clear Calc 67.4 Estimated GFR 56 POC Glucose Random Glucose 167 H Calcium 8.8 Iron 17 L TIBC 180 L % Saturation 9 L Unsat Iron Binding 163 Ferritin 262 H Lactate Dehydrogenase 265 H C-Reactive Protein 38.87 H 02/09/22 08:01 MCV MCH MCHC RDW Plt Count MPV Absolute Nucleated RBC Nucleated RBC % (auto) ESR Absolute Retic Percent Retic Immature Retic Fraction Retic Hgb Equivalent Anion Gap Estim Creat Clear Calc Estimated GFR POC Glucose 140 H Random Glucose Calcium Iron TIBC % Saturation Unsat Iron Binding Ferritin Lactate Dehydrogenase C-Reactive Protein Assessment and Plan (1) Osteomyelitis: Status: Acute Plan d#5 51yo F with HTN, HLD, DM, DM neuropathy + arthropathy, CHF, DFU with chronic osteo, PAD, hx VRE infection, hx L TMTA, hx R 4th + 5th toe amputations presented with purulent discharge from R foot ulcer admitted for severe sepsis due to osteomyelitis # severe sepsis due to infected DFU/osteomyelitis - recently finished 6 wk of ertapenem and was started on doxycycline + linezolid - currently on meropenem d#5. WBCs increasing and still febrile. BCx negative. will add vancomycin d#1. ID consultation pending - PICC placed 02/08/22 for home infusion eventually # PVD - ASA, atorvastatin - vascular surgery consulted, no operative intervention warranted at this point, adequate perfusion per prior arterial testing # AMY, prerenal vs septic ATN - resolved p IV fluids # iron deficiency anemia, also likely anemia of chronic inflammation - replete iron, check FOBT # N/V - resolved # HTN - amlodipine # CHF, hx of - euvolemic # DM2 - basal-bolus insulin # DM neuropathy - gabapentin # VTE ppx: LMWH In my clinical judgment, the patient requires continued hospitalization for the following reasons: IV ABX, fever Quality Stroke Does the patient have a stroke diagnosis?: No VTE Prior VTE?: No VTE Risk Level:: Medical - moderate - high VTE Device Contraindication: Treatment Not Indicated VTE Drug Contraindication: N/A - Med Ordered
[2022-02-09] MEDS: amLODIPine Besylate 10 MG TABLET PO (08:17)
[2022-02-09] MEDS: 0.9 % Sodium Chloride Flush 10 ML SYRINGE 5 ML IVFLUSH ×3 (08:17→20:57)
[2022-02-09] MEDS: Gabapentin 300 MG CAPSULE PO ×3 (08:17→19:55)
[2022-02-09] MEDS: Cyanocobalamin (Vitamin B-12) 1,000 MCG TABLET 1000 MCG PO (08:17)
[2022-02-09] MEDS: Atorvastatin Calcium 80 MG TABLET PO (08:17)
[2022-02-09] MEDS: 0.9 % Sodium Chloride Flush 3 ML SYRINGE IVFLUSH ×3 (08:17→19:55)
[2022-02-09] MEDS: Aspirin 81 MG TAB.CHEW PO (08:17)
[2022-02-09 10:41] LABS: Folate 11.3 ng/mL (> or = 4.0); Vitamin B12 513 pg/mL (200-900)
--- NOTE | 2022-02-09 11:09 | PHA.PROG ---
Admission Date/Time: February 05, 2022 21:32 Indication: BONE AND JOINT INF Weight in k.811 kg Adjusted body weight in K KG [place] body weight in K.1 KG Obesity Dosing Indication % IBW: Serum Creatinine - Last 168 Hours 02/05/22 02/06/22 02/08/22 17:08 04:08 05:29 Creatinine 1.31 0.87 0.93 02/09/22 05:09 Creatinine 1.04 Estimated CrCl and GFR - Last 168 Hours 02/05/22 02/06/22 02/08/22 17:08 04:08 05:29 Estim Creat Clear Calc 53.5 80.6 75.3 Estimated GFR 43 > 60 > 60 02/09/22 05:09 Estim Creat Clear Calc 67.4 Estimated GFR 56 Vancomycin Loading Dose: 2000 MG X 1 Current Vancomycin Dosing Regimen: 1250 MG Q24H Vancomycin Monitoring using AUC goal of 400 - 600 range with trough as surrogate marker: PREDICTED AUC OF 483. Date and Time for next Vancomycin Level to be drawn: RANDOM ON 02/11/22 @0900 (BEFORE 3RD DOSE) Pharmacist Comments on Vancomycin Plan: OBESE MODEL USED Vancomycin dosing will take advantage of [employer] as a clinical decision support tool that uses Bayesian modeling to calculate individual patient's pharmacokinetic parameters and forecast the patient's drug concentration time course with the target goal AUC 24 range of 400 - 600 mg/L/hr.
[2022-02-09 11:50] LABS: Glucose, Whole Blood 110 mg/dL (60-115)
[2022-02-09] MEDS: Enoxaparin Sodium 40 MG/0.4 ML SYRINGE SUBCUT (11:54)
[2022-02-09 12:00] VITALS: BP 103/54; PULSE 81; RESP 15; TEMP 36.8; O2SAT 90
[2022-02-09 15:37] VITALS: BP 147/70; PULSE 94; RESP 17; TEMP 37.1; O2SAT 97
[2022-02-09 15:53] LABS: Glucose, Whole Blood 129 mg/dL (60-115)
[2022-02-09 19:42] LABS: Glucose, Whole Blood 242 mg/dL (60-115)
[2022-02-09] MEDS: Insulin Lispro 100 UNIT/ML 3 ML VIAL SUBCUT (19:55)
[2022-02-09] MEDS: Insulin Glargine,Hum.rec.anlog 100 UNIT/ML 10 ML VIAL 68 UNIT SUBCUT (19:55)
[2022-02-09 20:00] VITALS: BP 147/62; PULSE 90; RESP 18; TEMP 37.3; O2SAT 95
[2022-02-10] VITALS (8 sets, daily range): BP systolic 132–173; BP diastolic 65–76; PULSE 80–102; RESP 16–19; TEMP 36.7–38.5; O2SAT 92–96
[2022-02-10] MEDS: oxyCODONE HCl Immed Release 5 MG TABLET PO ×4 (00:07→20:52)
[2022-02-10 06:31] LABS: Anion Gap 17 (12-20); Blood Urea Nitrogen 12 mg/dL (9-16); Calcium 8.7 mg/dL (8.4-10.2); Carbon Dioxide 26 mmol/L (22-29); Chloride 98 mmol/L (96-108); Estimated Glomerular Filt Rate > 60; Glucose Random 172 mg/dL (60-115); Potassium 4.3 mmol/L (3.3-5.1); Sodium 137 mmol/L (135-145)
[2022-02-10 06:33] LABS: Hematocrit 29.9 % (37.0-47.0); Hemoglobin 9.5 g/dl (12.0-16.0); Mean Corpuscular HGB Conc 31.8 g/dl (31.0-35.0); Mean Corpuscular Hemoglobin 26.1 pg (27.0-33.0); Mean Corpuscular Volume 82.1 fL (80.0-98.0); Mean Platelet Volume 10.6 fL (9.4-12.3); Platelet Count 558 X10*3/uL (160-400); Red Blood Count 3.64 X10*6/uL (4.20-5.50); Red Cell Distribution Width 13.2 % (11.0-16.0); White Blood Count 21.8 X10*3/uL (4.8-10.8)
[2022-02-10 08:18] LABS: Glucose, Whole Blood 164 mg/dL (60-115)
[2022-02-10] MEDS: amLODIPine Besylate 10 MG TABLET PO (08:28)
[2022-02-10] MEDS: Insulin Lispro 100 UNIT/ML 3 ML VIAL SUBCUT ×3 (08:28→20:54)
[2022-02-10] MEDS: Ferrous Sulfate 324 MG TABLET.DR PO (08:29)
[2022-02-10] MEDS: Gabapentin 300 MG CAPSULE PO ×3 (08:29→20:52)
[2022-02-10] MEDS: Cyanocobalamin (Vitamin B-12) 1,000 MCG TABLET 1000 MCG PO (08:29)
[2022-02-10] MEDS: 0.9 % Sodium Chloride Flush 10 ML SYRINGE 5 ML IVFLUSH ×3 (08:29→20:51)
[2022-02-10] MEDS: Aspirin 81 MG TAB.CHEW PO (08:29)
[2022-02-10] MEDS: Atorvastatin Calcium 80 MG TABLET PO (08:29)
[2022-02-10] MEDS: 0.9 % Sodium Chloride Flush 3 ML SYRINGE IVFLUSH ×3 (08:29→21:03)
--- NOTE | 2022-02-10 09:09 | HE.PHANOTE ---
VANCOMYCIN VBASED OFF SCR OF 0.96 DOSE CONTINUED AT [id number]. NEXT TROUGH 0900 ON 02/10
--- NOTE | 2022-02-10 10:36 | HO.PM.IMPN ---
Subjective Subjective Date of Service: 02/10/22 Interval History: No acute issues overnight. Pain control adequate Review of Systems Denies chest pain Denies shortness of breath Denies nausea vomiting diarrhea Denies fever chills Physical Exam Vital Signs: Vital Signs: Last Vital Signs Temp 99.2 F 02/10/22 08:00 Pulse 97 02/10/22 08:00 Resp 18 02/10/22 08:00 BP 143/66 H 02/10/22 08:00 Pulse Ox 92 02/10/22 08:00 O2 Del Method 02/10/22 08:00 O2 Flow Rate 2 02/09/22 03:06 BMI result Body Mass Index 36.2 Const: Other: Awake alert no acute distress Resp: Other: Clear to auscultation bilaterally no rales rhonchi or wheezes Cardio: Other: No S4; positive S1-S2; no S3 murmurs rubs or gallops GI: Other: Soft nontender nondistended normoactive bowel sounds Skin: Other: As per vascular note Extrem: Other: No edema bilaterally Objective Data Active Medications Acetaminophen (Acetaminophen 325 Mg Tablet) 650 mg PO Q6H PRN PRN Reason: Pain, Mild (Pain Scale 1-3) Last Admin: 02/09/22 18:24 Dose: 650 mg Documented By: LISA Amlodipine Besylate (Amlodipine Besylate 10 Mg Tablet) 10 mg PO DAILY [facility]; Protocol Last Admin: 02/10/22 08:28 Dose: 10 mg Documented By: IVANA Aspirin (Aspirin 81 Mg Tab.Chew) 81 mg PO DAILY [facility] Last Admin: 02/10/22 08:29 Dose: 81 mg Documented By: IVANA Atorvastatin Calcium (Atorvastatin Calcium 80 Mg Tablet) 80 mg PO DAILY [facility] Last Admin: 02/10/22 08:29 Dose: 80 mg Documented By: IVANA Cyanocobalamin (Cyanocobalamin (Vitamin B-12) 1,000 Mcg Tablet) 1,000 mcg PO DAILY [facility] Last Admin: 02/10/22 08:29 Dose: 1,000 mcg Documented By: IVANA Dextrose (Dextrose 50 % 25 Gm/50 Ml Syringe) 25 gm IVPUSH Q15M PRN; Protocol PRN Reason: per Hypoglycemia Standing Ord. Docusate Sodium (Docusate Sodium 100 Mg Capsule) 100 mg PO DAILY PRN PRN Reason: Constipation Enoxaparin Sodium (Enoxaparin Sodium 40 Mg/0.4 Ml Syringe) 40 mg SUBCUT Q24H [facility] Last Admin: 02/09/22 11:54 Dose: 40 mg Documented By: MICK Ferrous Sulfate (Ferrous Sulfate 324 Mg Tablet.Dr) 324 mg PO DAILY [facility] Last Admin: 02/10/22 08:29 Dose: 324 mg Documented By: IVANA Gabapentin (Gabapentin 300 Mg Capsule) 300 mg PO TID [facility] Last Admin: 02/10/22 08:29 Dose: 300 mg Documented By: IVANA Glucose (Glucose Gel 15 Gm Gel..Gram.) 15 gm PO Q15M PRN; Protocol PRN Reason: per Hypoglycemia Standing Ord. Hydromorphone HCl (Hydromorphone Hcl 1 Mg/Ml Syringe) 0.25 mg IVPUSH Q4H PRN; Protocol PRN Reason: Pain, Severe (Pain Scale 7-10) Last Admin: 02/07/22 00:40 Dose: 0.25 mg Documented By: CARLA Meropenem 1 gm/ Sodium (Chloride) 100 mls @ 200 mls/hr IV Q8H [facility] Last Infusion: 02/10/22 06:13 Dose: 0 mls/hr Documented By: KEVIN Vancomycin HCl 1,250 mg/ (Sodium Chloride) 250 mls @ 166.667 mls/hr IV Q24H [facility] Insulin Glargine (Insulin Glargine,Hum.Rec.Anlog 100 Unit/Ml 10 Ml Vial) 68 unit SUBCUT BEDTIME [facility] Last Admin: 02/09/22 19:55 Dose: 68 unit Documented By: KEVIN Insulin Human Lispro (Insulin Lispro 100 Unit/Ml 3 Ml Vial) 0 unit SUBCUT QIDACHS [facility]; Protocol Last Admin: 02/10/22 08:28 Dose: 2 unit Documented By: IVANA Naproxen (Naproxen 500 Mg Tablet) 500 mg PO BID PRN PRN Reason: Headache Last Admin: 02/06/22 08:11 Dose: 500 mg Documented By: ALLI Ondansetron HCl (Ondansetron Hcl 4 Mg/2 Ml Vial) 4 mg IVPUSH Q8H PRN PRN Reason: Nausea and Vomiting Last Admin: 02/06/22 08:10 Dose: 4 mg Documented By: ALLI Oxycodone HCl (Oxycodone Hcl Immed Release 5 Mg Tablet) 5 mg PO Q6H PRN PRN Reason: Pain, Severe (Pain Scale 7-10) Last Admin: 02/10/22 08:37 Dose: 5 mg Documented By: IVANA Pharmacy Consult (Consult Rx Perform Med Rec) 1 each MISCELLANE ONCE PRN PRN Reason: Consult order Sodium Chloride (0.9 % Sodium Chloride Flush 3 Ml Syringe) 3 ml IVFLUSH QSHIFT [facility] Last Admin: 02/10/22 08:29 Dose: 3 ml Documented By: IVANA Sodium Chloride (0.9 % Sodium Chloride Flush 10 Ml Syringe) 5 ml IVFLUSH TID [facility] Last Admin: 02/10/22 08:29 Dose: 5 ml Documented By: IVANA Labs CBC & Chem 7: 02/10/22 05:21 02/10/22 05:21 Labs: Laboratory Results - last 24 hr 02/09/22 02/09/22 02/09/22 05:09 11:28 15:40 MCV MCH MCHC RDW Plt Count MPV Absolute Nucleated RBC Nucleated RBC % (auto) Anion Gap Estim Creat Clear Calc Estimated GFR POC Glucose 110 129 H Random Glucose Calcium Vitamin B12 513 Folate 11.3 02/09/22 02/10/22 02/10/22 19:37 05:21 05:21 MCV 82.1 MCH 26.1 L MCHC 31.8 RDW 13.2 Plt Count 558 H MPV 10.6 Absolute Nucleated RBC 0.000 Nucleated RBC % (auto) 0.0 Anion Gap 17 Estim Creat Clear Calc 73.0 Estimated GFR > 60 POC Glucose 242 H Random Glucose 172 H Calcium 8.7 Vitamin B12 Folate 02/10/22 08:10 MCV MCH MCHC RDW Plt Count MPV Absolute Nucleated RBC Nucleated RBC % (auto) Anion Gap Estim Creat Clear Calc Estimated GFR POC Glucose 164 H Random Glucose Calcium Vitamin B12 Folate Assessment and Plan (1) Osteomyelitis: Status: Acute (2) PAD (peripheral artery disease): Status: Acute (3) AYM (acute kidney injury): Status: Acute (4) Hypertension: Status: Acute (5) Diabetes: Status: Acute Plan 51yo F with HTN, HLD, DM, DM neuropathy + arthropathy, CHF, DFU with chronic osteo, PAD, hx VRE infection, hx L TMTA, hx R 4th + 5th toe amputations presented with purulent discharge from R foot ulcer : osteomyelitis 1.Osteomyelitis - Meropenem (6)/Vancomycin (2) - ID consultation pending - PICC placed 02/08/22 for home infusion eventually 2. PVD - ASA, atorvastatin - vascular surgery consulted, no operative intervention warranted at this point, adequate perfusion per prior arterial testing 3.AMY -resolved -follow renals/divalents 4.iron deficiency anemia -stable -follow clinically 5.HTN -acceptable control -adjust as indicated - amlodipine 6.DM2 - acceptable control on current therapies -lispro correctional scale -adjust as indicated VTE ppx: LMWH Patient requires continued hospitalization for IVABTX for osteomyelitis Quality Stroke Does the patient have a stroke diagnosis?: No VTE Prior VTE?: No VTE Risk Level:: Medical - moderate - high VTE Device Contraindication: Treatment Not Indicated VTE Drug Contraindication: N/A - Med Ordered
[2022-02-10 11:18] LABS: Glucose, Whole Blood 148 mg/dL (60-115)
[2022-02-10] MEDS: vancomycin HCL 1,250 MG in 0.9 % Sodium Chloride 250 ML 166.67 MG IV (11:41)
[2022-02-10] MEDS: Acetaminophen 325 MG TABLET 650 MG PO ×2 (11:41→20:53)
[2022-02-10] MEDS: Enoxaparin Sodium 40 MG/0.4 ML SYRINGE SUBCUT (11:41)
--- NOTE | 2022-02-10 15:28 | PC.NURSE ---
P: Temp 101.3. O2 sat 88% on room air. I: Tylenol given for temp. O2 @ 2L applied. Encouraged deep breathing and IS given. Dr. Thompson notified. E: Temp 98.5 on reassessment. o2 sat 97-99% on 2L. Patient using IS with excellent tolerance. Patient noted to be snoring when this RN entered room this afternoon. No documented diagnosis of sleep apnea. Dr. Thompson aware.
[2022-02-10 16:16] LABS: Glucose, Whole Blood 151 mg/dL (60-115)
[2022-02-10 19:46] LABS: Glucose, Whole Blood 192 mg/dL (60-115)
[2022-02-10] MEDS: Insulin Glargine,Hum.rec.anlog 100 UNIT/ML 10 ML VIAL 68 UNIT SUBCUT (20:54)
[2022-02-11] VITALS (7 sets, daily range): BP systolic 123–158; BP diastolic 58–67; PULSE 89–103; RESP 16–18; TEMP 36.8–38.4; O2SAT 92–96
[2022-02-11 07:49] LABS: Glucose, Whole Blood 133 mg/dL (60-115)
[2022-02-11] MEDS: 0.9 % Sodium Chloride Flush 3 ML SYRINGE IVFLUSH ×3 (08:41→19:47)
[2022-02-11] MEDS: amLODIPine Besylate 10 MG TABLET PO (08:41)
[2022-02-11] MEDS: 0.9 % Sodium Chloride Flush 10 ML SYRINGE 5 ML IVFLUSH ×3 (08:41→19:46)
[2022-02-11] MEDS: Ferrous Sulfate 324 MG TABLET.DR PO (08:41)
[2022-02-11] MEDS: Cyanocobalamin (Vitamin B-12) 1,000 MCG TABLET 1000 MCG PO (08:41)
[2022-02-11] MEDS: Gabapentin 300 MG CAPSULE PO ×3 (08:41→19:57)
[2022-02-11] MEDS: Aspirin 81 MG TAB.CHEW PO (08:41)
[2022-02-11] MEDS: Atorvastatin Calcium 80 MG TABLET PO (08:41)
[2022-02-11 09:47] LABS: Creatinine Clr Calc Pharmacy 50.7; Estimated Glomerular Filt Rate 40
[2022-02-11] MEDS: Enoxaparin Sodium 40 MG/0.4 ML SYRINGE SUBCUT (11:06)
[2022-02-11] MEDS: vancomycin HCL 1,250 MG in 0.9 % Sodium Chloride 250 ML 166.67 MG IV (11:06)
[2022-02-11 11:39] LABS: Glucose, Whole Blood 153 mg/dL (60-115)
[2022-02-11 12:04] LABS: Vancomycin Random 12.4 mcg/mL (15-20)
[2022-02-11] MEDS: Insulin Lispro 100 UNIT/ML 3 ML VIAL SUBCUT ×3 (12:08→20:48)
--- NOTE | 2022-02-11 12:57 | HE.PHANOTE ---
VANCOMYCIN DOSE ADJUSTMENT SCR INCREASED TO 1.38. DOSE HELD FOR TOMORROW UNTIL LABS AND FOLLOW UP TROUGH 02/12 @11. Dose for 02/12 might be decreased due to rising scr
--- NOTE | 2022-02-11 13:16 | MHC.CM.PN ---
Per pt will not need IV abts @ d/c- to d/c today w/ PO abts. New referral for [facility] in place- they have been notified of d/c.
--- NOTE | 2022-02-11 13:26 | P.PNIM_ITS ---
Subjective Subjective Date of Service: 02/11/22 Interval History: No acute issues overnight. Pain control adequate Review of Systems Denies chest pain Denies shortness of breath Denies nausea vomiting diarrhea Denies fever chills Physical Exam Vital Signs: Vital Signs: Last Vital Signs Temp 99.7 F 02/11/22 11:19 Pulse 98 02/11/22 11:19 Resp 18 02/11/22 11:19 BP 141/67 H 02/11/22 11:19 Pulse Ox 96 02/11/22 11:19 O2 Del Method 02/11/22 11:19 O2 Flow Rate 2 02/11/22 11:19 BMI result Body Mass Index 36.2 Const: Other: Awake alert no acute distress Resp: Other: Clear to auscultation bilaterally no rales rhonchi or wheezes Cardio: Other: No S4; positive S1-S2; no S3 murmurs rubs or gallops GI: Other: Soft nontender nondistended normoactive bowel sounds Skin: Other: As per vascular note Extrem: Other: No edema bilaterally Objective Data Active Medications Acetaminophen (Acetaminophen 325 Mg Tablet) 650 mg PO Q6H PRN PRN Reason: Pain, Mild (Pain Scale 1-3) Last Admin: 02/10/22 20:53 Dose: 650 mg Documented By: CAREY Amlodipine Besylate (Amlodipine Besylate 10 Mg Tablet) 10 mg PO DAILY [facility]; Protocol Last Admin: 02/11/22 08:41 Dose: 10 mg Documented By: LUIZ Aspirin (Aspirin 81 Mg Tab.Chew) 81 mg PO DAILY [facility] Last Admin: 02/11/22 08:41 Dose: 81 mg Documented By: LUIZ Atorvastatin Calcium (Atorvastatin Calcium 80 Mg Tablet) 80 mg PO DAILY [facility] Last Admin: 02/11/22 08:41 Dose: 80 mg Documented By: LUIZ Cyanocobalamin (Cyanocobalamin (Vitamin B-12) 1,000 Mcg Tablet) 1,000 mcg PO DAILY [facility] Last Admin: 02/11/22 08:41 Dose: 1,000 mcg Documented By: LUIZ Dextrose (Dextrose 50 % 25 Gm/50 Ml Syringe) 25 gm IVPUSH Q15M PRN; Protocol PRN Reason: per Hypoglycemia Standing Ord. Docusate Sodium (Docusate Sodium 100 Mg Capsule) 100 mg PO DAILY PRN PRN Reason: Constipation Enoxaparin Sodium (Enoxaparin Sodium 40 Mg/0.4 Ml Syringe) 40 mg SUBCUT Q24H [facility] Last Admin: 02/11/22 11:06 Dose: 40 mg Documented By: LUIZ Ferrous Sulfate (Ferrous Sulfate 324 Mg Tablet.Dr) 324 mg PO DAILY [facility] Last Admin: 02/11/22 08:41 Dose: 324 mg Documented By: LUIZ Gabapentin (Gabapentin 300 Mg Capsule) 300 mg PO TID [facility] Last Admin: 02/11/22 08:41 Dose: 300 mg Documented By: LUIZ Glucose (Glucose Gel 15 Gm Gel..Gram.) 15 gm PO Q15M PRN; Protocol PRN Reason: per Hypoglycemia Standing Ord. Hydromorphone HCl (Hydromorphone Hcl 0.5 Mg/0.5 Ml Syringe) 0.5 mg IVPUSH Q4H PRN; Protocol PRN Reason: Pain, Severe (Pain Scale 7-10) Meropenem 1 gm/ Sodium (Chloride) 100 mls @ 200 mls/hr IV Q8H [facility] Last Infusion: 02/11/22 07:21 Dose: 0 mls/hr Documented By: LUIZ Vancomycin HCl 1,250 mg/ (Sodium Chloride) 250 mls @ 166.667 mls/hr IV Q24H [facility] Insulin Glargine (Insulin Glargine,Hum.Rec.Anlog 100 Unit/Ml 10 Ml Vial) 68 unit SUBCUT BEDTIME [facility] Last Admin: 02/10/22 20:54 Dose: 68 unit Documented By: CAREY Insulin Human Lispro (Insulin Lispro 100 Unit/Ml 3 Ml Vial) 0 unit SUBCUT QIDACHS [facility]; Protocol Last Admin: 02/11/22 12:08 Dose: 2 unit Documented By: LUIZ Naproxen (Naproxen 500 Mg Tablet) 500 mg PO BID PRN PRN Reason: Headache Last Admin: 02/06/22 08:11 Dose: 500 mg Documented By: ALLI Ondansetron HCl (Ondansetron Hcl 4 Mg/2 Ml Vial) 4 mg IVPUSH Q8H PRN PRN Reason: Nausea and Vomiting Last Admin: 02/06/22 08:10 Dose: 4 mg Documented By: ALLI Oxycodone HCl (Oxycodone Hcl Immed Release 5 Mg Tablet) 5 mg PO Q6H PRN PRN Reason: Pain, Moderate (Pain Scale 4-6 Pharmacy Consult (Consult Rx Perform Med Rec) 1 each MISCELLANE ONCE PRN PRN Reason: Consult order Sodium Chloride (0.9 % Sodium Chloride Flush 3 Ml Syringe) 3 ml IVFLUSH QSHIFT [facility] Last Admin: 02/11/22 08:41 Dose: 3 ml Documented By: LUIZ Sodium Chloride (0.9 % Sodium Chloride Flush 10 Ml Syringe) 5 ml IVFLUSH TID [facility] Last Admin: 02/11/22 08:41 Dose: 5 ml Documented By: LUIZ Labs CBC & Chem 7: 02/10/22 05:21 02/11/22 09:20 Labs: Laboratory Results - last 24 hr 02/10/22 02/10/22 02/11/22 15:32 18:54 07:27 Estim Creat Clear Calc Estimated GFR POC Glucose 151 H 192 H 133 H Random Vancomycin 02/11/22 02/11/22 02/11/22 08:58 09:20 11:17 Estim Creat Clear Calc 50.7 Estimated GFR 40 POC Glucose 153 H Random Vancomycin 12.4 L Microbiology Microbiology Results: Microbiology 02/05/22 17:08 Blood Culture - Final Blood - Venous No growth after 5 days. 02/05/22 16:32 Blood Culture - Final Blood - Venous No growth after 5 days. Assessment and Plan (1) Osteomyelitis: Status: Acute (2) AMY (acute kidney injury): Status: Acute (3) PAD (peripheral artery disease): Status: Acute Plan 51yo F with HTN, HLD, DM, DM neuropathy + arthropathy, CHF, DFU with chronic osteo, PAD, hx VRE infection, hx L TMTA, hx R 4th + 5th toe amputations presented with purulent discharge from R foot ulcer : osteomyelitis 1.Osteomyelitis - Meropenem (7)/Vancomycin (3) - ID consultation... 48 HOURS additional IV therapy - recommends oral therapy x3 weeks. Will DC PICC line upon discharge 2. PVD - ASA, atorvastatin - vascular surgery consulted, no operative intervention warranted at this point, adequate perfusion per prior arterial testing 3.AMY -resolved -follow renals/divalents 4.iron deficiency anemia -stable -follow clinically 5.HTN -acceptable control -adjust as indicated - amlodipine 6.DM2 - acceptable control on current therapies -lispro correctional scale -adjust as indicated VTE ppx: LMWH Patient requires continued hospitalization for IVABTX for osteomyelitis Quality Stroke Does the patient have a stroke diagnosis?: No VTE Prior VTE?: No VTE Risk Level:: Medical - moderate - high VTE Device Contraindication: Treatment Not Indicated VTE Drug Contraindication: N/A - Med Ordered
[2022-02-11] MEDS: Acetaminophen 325 MG TABLET 650 MG PO (16:27)
[2022-02-11 16:42] LABS: Glucose, Whole Blood 171 mg/dL (60-115)
[2022-02-11] MEDS: oxyCODONE HCl Immed Release 5 MG TABLET PO (19:56)
[2022-02-11 20:34] LABS: Glucose, Whole Blood 302 mg/dL (60-115)
[2022-02-11] MEDS: Insulin Glargine,Hum.rec.anlog 100 UNIT/ML 10 ML VIAL 68 UNIT SUBCUT (20:48)
[2022-02-12 04:00] VITALS: BP 148/69; PULSE 99; RESP 18; TEMP 38.4; O2SAT 95
[2022-02-12] MEDS: Acetaminophen 325 MG TABLET 650 MG PO ×2 (05:49→16:47)
[2022-02-12] MEDS: oxyCODONE HCl Immed Release 5 MG TABLET PO (05:49)
[2022-02-12 05:51] VITALS: TEMP 39.1
--- NOTE | 2022-02-12 05:52 | PC.NURSE ---
temp-102.4 orally medicated with 2 tylenol at 0540.
[2022-02-12 06:06] LABS: Hematocrit 27.7 % (37.0-47.0); Hemoglobin 8.7 g/dl (12.0-16.0); Mean Corpuscular HGB Conc 31.4 g/dl (31.0-35.0); Mean Corpuscular Hemoglobin 25.7 pg (27.0-33.0); Mean Corpuscular Volume 81.7 fL (80.0-98.0); Mean Platelet Volume 10.8 fL (9.4-12.3); Platelet Count 553 X10*3/uL (160-400); Red Blood Count 3.39 X10*6/uL (4.20-5.50); Red Cell Distribution Width 13.4 % (11.0-16.0); White Blood Count 26.2 X10*3/uL (4.8-10.8)
[2022-02-12 06:20] LABS: Creatinine Clr Calc Pharmacy 53.5; Estimated Glomerular Filt Rate 43
[2022-02-12 07:22] VITALS: BP 135/61; PULSE 95; RESP 16; TEMP 37.1; O2SAT 94
[2022-02-12 07:32] LABS: Glucose, Whole Blood 157 mg/dL (60-115)
[2022-02-12] MEDS: Insulin Lispro 100 UNIT/ML 3 ML VIAL SUBCUT ×3 (07:46→20:19)
[2022-02-12] MEDS: Aspirin 81 MG TAB.CHEW PO (07:46)
[2022-02-12] MEDS: amLODIPine Besylate 10 MG TABLET PO (07:47)
[2022-02-12] MEDS: Cyanocobalamin (Vitamin B-12) 1,000 MCG TABLET 1000 MCG PO (07:47)
[2022-02-12] MEDS: Ferrous Sulfate 324 MG TABLET.DR PO (07:47)
[2022-02-12] MEDS: Gabapentin 300 MG CAPSULE PO ×3 (07:47→20:18)
[2022-02-12] MEDS: Atorvastatin Calcium 80 MG TABLET PO (07:47)
[2022-02-12] MEDS: 0.9 % Sodium Chloride Flush 3 ML SYRINGE IVFLUSH ×2 (07:48→15:00)
[2022-02-12] MEDS: 0.9 % Sodium Chloride Flush 10 ML SYRINGE 5 ML IVFLUSH ×3 (07:48→20:20)
--- NOTE | 2022-02-12 08:22 | P.CDIC_ITS ---
CDI Concurrent Query Documentation Clarification: PHYSICIAN'S DOCUMENTATION REQUEST Date of Query: 02/12/22 0823 Patient Name: Staci Shirley Admit Date: 02/05/22 Dear Doctor, A review of the medical record indicates additional documentation may be needed. Please review below and update the documentation accordingly. Clinical Indicators: Risk Factors/Clinical Indicators/Treatments PN: 02/06 - Mild AMY H&P: patients cr at presentation 1.3 baseline 0.8, IV fluids. PN: 02/08 - Assessment/plan: AMY vs. Septic ATN Please clarify the following: AMY vs. ATN * [Diagnosis] was present on admission and is now resolved * [Diagnosis] was present on admission and is still being monitored, evaluated, or treated * [Diagnosis] was ruled out * [Diagnosis] is still a likely, suspected, probable diagnosis * Other (please specify) * Unable to determine Use of terms such as suspected, likely, concern for, or probable (associated with a specific diagnosis that is being evaluated, monitored, or treated as if it exists) are acceptable and can be coded in the inpatient setting, when documented at the time of discharge. Thank you, Edith Harrison [facility], CDIS Extension: [phone] Please use your independent medical judgment in providing your response. THIS QUERY IS PART OF THE PERMANENT MEDICAL RECORD Provider Response: Other Other Diagnosis: AMY was present on admission and is now resolved
--- NOTE | 2022-02-12 09:43 | HO.VASCPN ---
Subjective Subjective Date of Service: 02/12/22 Patient reports: no new complaints Interval history: Pleasant 51-year-old female presents for follow-up regarding nonhealing right foot ulcer. She has been hospitalized for infection and nonhealing ulcer and amputation site. She was treated with a 6 week course of IV antibiotics with no significant improvement. She was nearly set to be discharged when she spiked a temperature of 102.4 degrees this morning. Otherwise she reports she is doing fairly well. I did have a follow-up visit with the patient while the daughter was on telephone during this visit. Physical Exam Vital Signs: Vital Signs: Last Vital Signs Temp 98.8 F 02/12/22 07:22 Pulse 95 02/12/22 07:22 Resp 16 02/12/22 07:22 BP 135/61 02/12/22 07:22 Pulse Ox 94 02/12/22 07:22 O2 Del Method 02/12/22 07:22 O2 Flow Rate 2 02/12/22 07:22 BMI result Body Mass Index 36.2 Const: General: cooperative, healthy appearing and no acute distress Orientation/consciousness: oriented to person, oriented to place and oriented to time HEENT: Head: Yes normal to inspection Neck: Carotids: no bruits Chest: Chest palpation & inspection: normal inspection of the chest Resp: Effort & Inspection: normal respiratory effort and able to speak in complete sentences Auscultation: clear to auscultation bilaterally Cardio: Rate: regular rate Heart sounds: S1 normal heart sound present and S2 normal heart sound present GI: Inspection: Yes normal to inspection Skin: Other: Right lateral foot amputation site healing well ulceration on the plantar aspect as well. General skin exam: no rashes or lesions noted Neuro: General: oriented to person, oriented to place, oriented to time and CN's II-XI intact bilaterally Extrem: General: Yes normal to inspection, Yes full ROM and Yes no clubbing, cyanosis or edema Psych: Appearance: grossly normal and well kempt Speech and movement: Normal speech and movement present Affect: normal affect Progress Note: A&P Assessment and plan (1) PAD (peripheral artery disease): Status: Acute (2) Diabetic foot ulcer with osteomyelitis: Status: Acute Assessment and Plan: In short patient has a diabetic foot ulcer. I did change the dressing and it does appear to be improving. Unclear source temperature spike Would continue with IV antibiotic therapy. I did discuss with her and the daughter that she as at risk of amputation. At the current time they do not want to entertain that option and would like to do everything possible to salvage that foot. Would continue with IV antibiotics and medical workup for fever. We will continue to monitor this patient with you. Time Spent With Patient Time: Total time spent is greater than 50% in coordination of care (as documented) at patient's floor/unit and/or counseling patient: Procedures Date of Service Date of Service: 02/12/22 Quality Stroke Does the patient have a stroke diagnosis?: No VTE Prior VTE?: No VTE Risk Level:: Medical - moderate - high VTE Device Contraindication: Treatment Not Indicated VTE Drug Contraindication: N/A - Med Ordered
--- NOTE | 2022-02-12 09:49 | HO.PM.IMPN ---
Subjective Subjective Date of Service: 02/12/22 Interval History: T-max to 102.4 overnight. Feels better this a.m.; afebrile with Tylenol Review of Systems Denies chest pain Denies shortness of breath Denies nausea vomiting diarrhea Denies fever chills Physical Exam Vital Signs: Vital Signs: Last Vital Signs Temp 98.8 F 02/12/22 07:22 Pulse 95 02/12/22 07:22 Resp 16 02/12/22 07:22 BP 135/61 02/12/22 07:22 Pulse Ox 94 02/12/22 07:22 O2 Del Method 02/12/22 07:22 O2 Flow Rate 2 02/12/22 07:22 BMI result Body Mass Index 36.2 Const: Other: Awake alert no acute distress Resp: Other: Clear to auscultation bilaterally no rales rhonchi or wheezes Cardio: Other: No S4; positive S1-S2; no S3 murmurs rubs or gallops GI: Other: Soft nontender nondistended normoactive bowel sounds Skin: Other: As per vascular note Extrem: Other: No edema bilaterally Objective Data Active Medications Acetaminophen (Acetaminophen 325 Mg Tablet) 650 mg PO Q6H PRN PRN Reason: Pain, Mild (Pain Scale 1-3) Last Admin: 02/12/22 05:49 Dose: 650 mg Documented By: GHASSAN Amlodipine Besylate (Amlodipine Besylate 10 Mg Tablet) 10 mg PO DAILY [facility]; Protocol Last Admin: 02/12/22 07:47 Dose: 10 mg Documented By: MILLER Aspirin (Aspirin 81 Mg Tab.Chew) 81 mg PO DAILY [facility] Last Admin: 02/12/22 07:46 Dose: 81 mg Documented By: MILLER Atorvastatin Calcium (Atorvastatin Calcium 80 Mg Tablet) 80 mg PO DAILY [facility] Last Admin: 02/12/22 07:47 Dose: 80 mg Documented By: MILLER Cyanocobalamin (Cyanocobalamin (Vitamin B-12) 1,000 Mcg Tablet) 1,000 mcg PO DAILY [facility] Last Admin: 02/12/22 07:47 Dose: 1,000 mcg Documented By: MILLER Dextrose (Dextrose 50 % 25 Gm/50 Ml Syringe) 25 gm IVPUSH Q15M PRN; Protocol PRN Reason: per Hypoglycemia Standing Ord. Docusate Sodium (Docusate Sodium 100 Mg Capsule) 100 mg PO DAILY PRN PRN Reason: Constipation Enoxaparin Sodium (Enoxaparin Sodium 40 Mg/0.4 Ml Syringe) 40 mg SUBCUT Q24H [facility] Last Admin: 02/11/22 11:06 Dose: 40 mg Documented By: LUIZ Ferrous Sulfate (Ferrous Sulfate 324 Mg Tablet.Dr) 324 mg PO DAILY [facility] Last Admin: 02/12/22 07:47 Dose: 324 mg Documented By: MILLER Gabapentin (Gabapentin 300 Mg Capsule) 300 mg PO TID [facility] Last Admin: 02/12/22 07:47 Dose: 300 mg Documented By: MILLER Glucose (Glucose Gel 15 Gm Gel..Gram.) 15 gm PO Q15M PRN; Protocol PRN Reason: per Hypoglycemia Standing Ord. Hydromorphone HCl (Hydromorphone Hcl 0.5 Mg/0.5 Ml Syringe) 0.5 mg IVPUSH Q4H PRN; Protocol PRN Reason: Pain, Severe (Pain Scale 7-10) Meropenem 1 gm/ Sodium (Chloride) 100 mls @ 200 mls/hr IV Q8H [facility] Last Infusion: 02/12/22 06:13 Dose: 0 mls/hr Documented By: GHASSAN Vancomycin HCl 1,250 mg/ (Sodium Chloride) 250 mls @ 166.667 mls/hr IV Q24H [facility] Insulin Glargine (Insulin Glargine,Hum.Rec.Anlog 100 Unit/Ml 10 Ml Vial) 68 unit SUBCUT BEDTIME [facility] Last Admin: 02/11/22 20:48 Dose: 68 unit Documented By: GHASSAN Insulin Human Lispro (Insulin Lispro 100 Unit/Ml 3 Ml Vial) 0 unit SUBCUT QIDACHS [facility]; Protocol Last Admin: 02/12/22 07:46 Dose: 2 unit Documented By: MILLER Naproxen (Naproxen 500 Mg Tablet) 500 mg PO BID PRN PRN Reason: Headache Last Admin: 02/06/22 08:11 Dose: 500 mg Documented By: ALLI Ondansetron HCl (Ondansetron Hcl 4 Mg/2 Ml Vial) 4 mg IVPUSH Q8H PRN PRN Reason: Nausea and Vomiting Last Admin: 02/06/22 08:10 Dose: 4 mg Documented By: ALLI Oxycodone HCl (Oxycodone Hcl Immed Release 5 Mg Tablet) 5 mg PO Q6H PRN PRN Reason: Pain, Moderate (Pain Scale 4-6 Last Admin: 02/12/22 05:49 Dose: 5 mg Documented By: GHASSAN Pharmacy Consult (Consult Rx Perform Med Rec) 1 each MISCELLANE ONCE PRN PRN Reason: Consult order Sodium Chloride (0.9 % Sodium Chloride Flush 3 Ml Syringe) 3 ml IVFLUSH QSHIFT [facility] Last Admin: 02/12/22 07:48 Dose: 3 ml Documented By: MILLER Sodium Chloride (0.9 % Sodium Chloride Flush 10 Ml Syringe) 5 ml IVFLUSH TID [facility] Last Admin: 02/12/22 07:48 Dose: 5 ml Documented By: MILLER Labs CBC & Chem 7: 02/12/22 05:16 02/12/22 05:16 Labs: Laboratory Results - last 24 hr 02/11/22 02/11/22 02/11/22 08:58 11:17 16:35 MCV MCH MCHC RDW Plt Count MPV Absolute Nucleated RBC Nucleated RBC % (auto) Estim Creat Clear Calc Estimated GFR POC Glucose 153 H 171 H Random Vancomycin 12.4 L 02/11/22 02/12/22 02/12/22 20:30 05:16 05:16 MCV 81.7 MCH 25.7 L MCHC 31.4 RDW 13.4 Plt Count 553 H MPV 10.8 Absolute Nucleated RBC 0.000 Nucleated RBC % (auto) 0.0 Estim Creat Clear Calc 53.5 Estimated GFR 43 POC Glucose 302 H Random Vancomycin 02/12/22 07:20 MCV MCH MCHC RDW Plt Count MPV Absolute Nucleated RBC Nucleated RBC % (auto) Estim Creat Clear Calc Estimated GFR POC Glucose 157 H Random Vancomycin Assessment and Plan (1) Osteomyelitis: Status: Acute (2) AMY (acute kidney injury): Status: Acute (3) PAD (peripheral artery disease): Status: Acute Plan 51yo F with HTN, HLD, DM, DM neuropathy + arthropathy, CHF, DFU with chronic osteo, PAD, hx VRE infection, hx L TMTA, hx R 4th + 5th toe amputations presented with purulent discharge from R foot ulcer : osteomyelitis 1.Osteomyelitis/cellulitis - Meropenem (8)/Vancomycin (4) - will continue IV antibiotics pending repeat blood cultures 2. PVD - ASA, atorvastatin - vascular surgery consulted, no operative intervention warranted at this point, adequate perfusion per prior arterial testing 3.AMY -resolved -follow renals/divalents 4.iron deficiency anemia -stable -follow clinically 5.HTN -acceptable control -adjust as indicated - amlodipine 6.DM2 - acceptable control on current therapies -lispro correctional scale -adjust as indicated VTE ppx: LMWH Patient requires continued hospitalization for IVABTX for osteomyelitis Quality Stroke Does the patient have a stroke diagnosis?: No VTE Prior VTE?: No VTE Risk Level:: Medical - moderate - high VTE Device Contraindication: Treatment Not Indicated VTE Drug Contraindication: N/A - Med Ordered
[2022-02-12 11:15] VITALS: BP 135/64; PULSE 86; RESP 20; TEMP 36.4; O2SAT 92
[2022-02-12 11:21] LABS: Glucose, Whole Blood 129 mg/dL (60-115)
[2022-02-12] MEDS: Enoxaparin Sodium 40 MG/0.4 ML SYRINGE SUBCUT (11:47)
[2022-02-12 12:56] LABS: Vancomycin Random 13.1 mcg/mL (15-20)
--- NOTE | 2022-02-12 14:49 | P.CNID_ITS ---
History of Present Illness Data of Consult Service Date: 02/11/22 Requesting physician: Wilmer Thompson Primary Care Provider: MD TOMMY Cam Reason for consult: right foot erythema She presents to hospital with worsening right foot erythema and blisters on dorsum. She has no fever or chills. She has been treated with shelter IV antibiotics in past Dr Peguero follows patient. Review of Systems Review of Systems: Yes all other systems are reviewed and are negative PMFSH Past Medical History Medical History Abscess Amputated toe of left foot Amputation of left foot BMI 39.0-39.9,adult Chronic heart failure with preserved ejection fraction (HFpEF) Chronic osteomyelitis of foot Diabetes Diabetic foot infection Hyperlipidemia Hypertension Insulin dependent diabetes mellitus Neuropathy Obesity Osteomyelitis Osteomyelitis PAD (peripheral artery disease) Type 2 diabetes mellitus with unspecified complications Vitamin B12 deficiency VRE (vancomycin resistant enterococcus) culture positive Family History Family History Mother Diabetes Hypertension Disk prolapse Father Diabetes Hypertension Sister No problems noted. Brother No problems noted. Daughter No problems noted. Son No problems noted. Family history: reviewed and not pertinent Surgical History Surgical History H/O spinal fusion History of amputation of left foot History of section History of tubal ligation Status post amputation of toe of right foot Social History Social History Household Members: Significant Other Household Members Other:: Housing: Apartment Do you presently have visiting nurse or other home services: Yes Alcohol intake: never Patient Tobacco Use Status: Never used Tobacco e-Cigarette/Vaping Use: Never Used Second Hand Smoke Exposure: No Advance Directives Date on File: 02/15/21 service: No Current occupational status: unemployed Meds Allergies Allergy/AdvReac Type Severity Reaction Status Date / Time No Known Allergies Allergy Verified 01/18/22 11:19 [No Known Allergies*] Active Medications: Current Medications Acetaminophen (Acetaminophen 325 Mg Tablet) 650 mg PO Q6H PRN PRN Reason: Pain, Mild (Pain Scale 1-3) Last Admin: 02/12/22 05:49 Dose: 650 mg Amlodipine Besylate (Amlodipine Besylate 10 Mg Tablet) 10 mg PO DAILY [facility]; Protocol Last Admin: 02/12/22 07:47 Dose: 10 mg Aspirin (Aspirin 81 Mg Tab.Chew) 81 mg PO DAILY [facility] Last Admin: 02/12/22 07:46 Dose: 81 mg Atorvastatin Calcium (Atorvastatin Calcium 80 Mg Tablet) 80 mg PO DAILY [facility] Last Admin: 02/12/22 07:47 Dose: 80 mg Cyanocobalamin (Cyanocobalamin (Vitamin B-12) 1,000 Mcg Tablet) 1,000 mcg PO DAILY [facility] Last Admin: 02/12/22 07:47 Dose: 1,000 mcg Dextrose (Dextrose 50 % 25 Gm/50 Ml Syringe) 25 gm IVPUSH Q15M PRN; Protocol PRN Reason: per Hypoglycemia Standing Ord. Docusate Sodium (Docusate Sodium 100 Mg Capsule) 100 mg PO DAILY PRN PRN Reason: Constipation Enoxaparin Sodium (Enoxaparin Sodium 40 Mg/0.4 Ml Syringe) 40 mg SUBCUT Q24H [facility] Last Admin: 02/12/22 11:47 Dose: 40 mg Ferrous Sulfate (Ferrous Sulfate 324 Mg Tablet.Dr) 324 mg PO DAILY [facility] Last Admin: 02/12/22 07:47 Dose: 324 mg Gabapentin (Gabapentin 300 Mg Capsule) 300 mg PO TID [facility] Last Admin: 02/12/22 07:47 Dose: 300 mg Glucose (Glucose Gel 15 Gm Gel..Gram.) 15 gm PO Q15M PRN; Protocol PRN Reason: per Hypoglycemia Standing Ord. Hydromorphone HCl (Hydromorphone Hcl 0.5 Mg/0.5 Ml Syringe) 0.5 mg IVPUSH Q4H PRN; Protocol PRN Reason: Pain, Severe (Pain Scale 7-10) Meropenem 1 gm/ Sodium (Chloride) 100 mls @ 200 mls/hr IV Q8H [facility] Last Infusion: 02/12/22 14:46 Dose: Infused Vancomycin HCl 1,250 mg/ (Sodium Chloride) 250 mls @ 166.667 mls/hr IV Q24H [facility] Last Admin: 02/12/22 13:18 Dose: Not Given Insulin Glargine (Insulin Glargine,Hum.Rec.Anlog 100 Unit/Ml 10 Ml Vial) 68 unit SUBCUT BEDTIME [facility] Last Admin: 02/11/22 20:48 Dose: 68 unit Insulin Human Lispro (Insulin Lispro 100 Unit/Ml 3 Ml Vial) 0 unit SUBCUT QIDACHS [facility]; Protocol Last Admin: 02/12/22 11:54 Dose: Not Given Naproxen (Naproxen 500 Mg Tablet) 500 mg PO BID PRN PRN Reason: Headache Last Admin: 02/06/22 08:11 Dose: 500 mg Ondansetron HCl (Ondansetron Hcl 4 Mg/2 Ml Vial) 4 mg IVPUSH Q8H PRN PRN Reason: Nausea and Vomiting Last Admin: 02/06/22 08:10 Dose: 4 mg Oxycodone HCl (Oxycodone Hcl Immed Release 5 Mg Tablet) 5 mg PO Q6H PRN PRN Reason: Pain, Moderate (Pain Scale 4-6 Last Admin: 02/12/22 05:49 Dose: 5 mg Pharmacy Consult (Consult Rx Perform Med Rec) 1 each MISCELLANE ONCE PRN PRN Reason: Consult order Sodium Chloride (0.9 % Sodium Chloride Flush 3 Ml Syringe) [address] [facility] Last Admin: 02/12/22 07:48 Dose: 3 ml Sodium Chloride (0.9 % Sodium Chloride Flush 10 Ml Syringe) 5 ml IVFLUSH TID [facility] Last Admin: 02/12/22 07:48 Dose: 5 ml Home Medications Medication Instructions Recorded Confirmed Last Taken Type amlodipine 10 mg tablet 1 tab PO DAILY 03/19/20 02/05/22 02/05/22 History gabapentin 300 mg capsule 1 cap PO TID 03/19/20 02/05/22 11/28/21 History insulin aspart U-100 100 unit/mL 25 unit subcut TIDAC 03/19/20 02/05/22 11/29/21 History subcutaneous solution (Novolog U-100 Insulin aspart) aspirin 81 mg chewable tablet 81 mg PO DAILY 06/17/21 02/05/22 11/28/21 History blood-glucose meter (FreeStyle #1 ea 07/03/21 11/28/21 History [place] Lite kit) insulin glargine 100 unit/mL 90 unit subcut BEDTIME 09/13/21 02/05/22 11/28/21 History subcutaneous solution (Lantus U-100 Insulin) atorvastatin 80 mg tablet 80 mg PO DAILY 11/29/21 02/05/22 11/28/21 History dulaglutide 0.75 mg/0.5 mL 0.75 mg subcut TU@1000 02/05/22 02/05/22 02/05/22 History subcutaneous pen injector (Trulicity) naproxen 500 mg tablet 500 mg PO BID PRN Headache 02/05/22 02/05/22 Unknown History urea 20 % topical cream 1 appl topical DAILY 02/05/22 02/05/22 Unknown History Physical Exam 2 Vital Signs: Vital Signs: Last Vital Signs Temp 97.5 F 02/12/22 11:15 Pulse 86 02/12/22 11:15 Resp 20 02/12/22 11:15 BP 135/64 02/12/22 11:15 Pulse Ox 92 02/12/22 11:15 O2 Del Method 02/12/22 11:15 O2 Flow Rate 2 02/12/22 11:15 BMI result Body Mass Index 36.2 Const: General: cooperative HEENT: Head: Yes normal to inspection Face and sinus: Yes normal facial exam Mouth: Normal oral and palatal mucosa present Teeth and gingiva: dentition normal Eyes: General: appearance normal, both eyes and all related structures Pupils: Equal, round and reactive pupils present Resp: Effort & Inspection: normal respiratory effort Cardio: Rate: regular rate Rhythm: regular rhythm GI: Palpation (GI): Soft to palpation and nontender : General: Yes no CVA tenderness Back/Spine/Pelvis: Back: no CVA tenderness Skin: General skin exam: no rashes or lesions noted Neuro: General: moves all extremities Cranial nerves: Yes Equal, round and reactive pupils present Extrem: Other: foot with dorsal blister ,mild erythema General: Yes normal to inspection Psych: Appearance: grossly normal Results Labs CBC & Chem 7: 02/12/22 05:16 02/12/22 05:16 Labs: Short CBC 02/12/22 Range/Units 05:16 WBC 26.2 H (4.8-10.8) X10*3/uL Hgb 8.7 L (12.0-16.0) g/dl Hct 27.7 L (37.0-47.0) % Plt Count 553 H (160-400) X10*3/uL BMP 02/12/22 05:16 Creatinine 1.31 Microbiology Microbiology Results: Microbiology 02/05/22 17:08 Blood - Venous Blood Culture - Final No growth after 5 days. 02/05/22 16:32 Blood - Venous Blood Culture - Final No growth after 5 days. Assessment and Plan (1) Severe sepsis: Status: Acute (2) Diabetic foot ulcer with osteomyelitis: Status: Acute She has chronic osteomyelitis. Organisms include gram negative,gram positive and anerobes She has exacerbation of foot infection and chronic noncurable osteomyelitis. Plan Would give IV antibiotics until improved and then po possible Levaquin one week or until better. Foot at senior living risk despite antibiotics,not curable. Can give Xeroform/other dressing to wound. No need shelter IV antibiotics
[2022-02-12] MEDS: vancomycin HCL 1,250 MG in 0.9 % Sodium Chloride 250 ML 166.67 MG IV (14:59)
[2022-02-12 15:52] VITALS: BP 138/64; PULSE 95; RESP 18; TEMP 37.8; O2SAT 97
[2022-02-12 16:04] LABS: Glucose, Whole Blood 274 mg/dL (60-115)
[2022-02-12 19:48] VITALS: BP 124/62; PULSE 86; RESP 18; TEMP 37.2; O2SAT 94
[2022-02-12 20:06] LABS: Glucose, Whole Blood 284 mg/dL (60-115)
[2022-02-12] MEDS: Insulin Glargine,Hum.rec.anlog 100 UNIT/ML 10 ML VIAL 68 UNIT SUBCUT (20:19)
[2022-02-12] MEDS: HYDROmorphone HCl 0.5 MG/0.5 ML SYRINGE IVPUSH (23:23)
[2022-02-13] VITALS (12 sets, daily range): BP systolic 102–165; BP diastolic 57–71; PULSE 76–100; RESP 16–20; TEMP 36.1–39.3; O2SAT 93–98
[2022-02-13] MEDS: Acetaminophen 325 MG TABLET 650 MG PO ×4 (00:12→20:14)
[2022-02-13] MEDS: Acetaminophen 325 MG TABLET 975 MG PO ×2 (01:26→22:03)
[2022-02-13 06:04] LABS: Hematocrit 27.4 % (37.0-47.0); Hemoglobin 8.8 g/dl (12.0-16.0); Mean Corpuscular HGB Conc 32.1 g/dl (31.0-35.0); Mean Corpuscular Volume 80.8 fL (80.0-98.0); Mean Platelet Volume 10.4 fL (9.4-12.3); Platelet Count 595 X10*3/uL (160-400); Red Blood Count 3.39 X10*6/uL (4.20-5.50); Red Cell Distribution Width 13.2 % (11.0-16.0); White Blood Count 28.8 X10*3/uL (4.8-10.8)
[2022-02-13 06:19] LABS: Estimated Glomerular Filt Rate 39
[2022-02-13 07:29] LABS: Glucose, Whole Blood 67 mg/dL (60-115)
[2022-02-13] MEDS: Gabapentin 300 MG CAPSULE PO ×3 (07:41→20:14)
[2022-02-13] MEDS: Aspirin 81 MG TAB.CHEW PO (07:41)
[2022-02-13] MEDS: amLODIPine Besylate 10 MG TABLET PO (07:41)
[2022-02-13] MEDS: Ferrous Sulfate 324 MG TABLET.DR PO (07:41)
[2022-02-13] MEDS: Atorvastatin Calcium 80 MG TABLET PO (07:42)
[2022-02-13] MEDS: Cyanocobalamin (Vitamin B-12) 1,000 MCG TABLET 1000 MCG PO (07:42)
[2022-02-13] MEDS: 0.9 % Sodium Chloride Flush 10 ML SYRINGE 5 ML IVFLUSH ×3 (07:43→20:14)
[2022-02-13 11:08] LABS: Glucose, Whole Blood 159 mg/dL (60-115)
[2022-02-13] MEDS: Insulin Lispro 100 UNIT/ML 3 ML VIAL SUBCUT ×3 (11:37→21:32)
[2022-02-13] MEDS: Enoxaparin Sodium 40 MG/0.4 ML SYRINGE SUBCUT (11:38)
--- NOTE | 2022-02-13 11:47 | MHC.CM.PN ---
[facility] UPDATED IN [facility]. NO PLAN FOR DC TODAY
[2022-02-13] MEDS: HYDROmorphone HCl 0.5 MG/0.5 ML SYRINGE IVPUSH ×2 (13:29→21:36)
[2022-02-13] MEDS: vancomycin HCL 1,250 MG in 0.9 % Sodium Chloride 250 ML 166.67 MG IV (14:44)
[2022-02-13 15:56] LABS: Glucose, Whole Blood 201 mg/dL (60-115)
--- NOTE | 2022-02-13 16:24 | P.PNIM_ITS ---
Subjective Subjective Date of Service: 02/13/22 Interval History: No acute issues overnight T-max 102.1 Review of Systems Denies chest pain Denies shortness of breath Denies nausea vomiting diarrhea Denies fever chills Physical Exam Vital Signs: Vital Signs: Last Vital Signs Temp 98.8 F 02/13/22 15:33 Pulse 90 02/13/22 15:33 Resp 16 02/13/22 15:33 BP 130/62 02/13/22 15:33 Pulse Ox 98 02/13/22 15:33 O2 Del Method 02/13/22 15:33 O2 Flow Rate 2.0 02/13/22 15:33 BMI result Body Mass Index 36.2 Const: Other: Awake alert no acute distress Resp: Other: Clear to auscultation bilaterally no rales rhonchi or wheezes Cardio: Other: No S4; positive S1-S2; no S3 murmurs rubs or gallops GI: Other: Soft nontender nondistended normoactive bowel sounds Skin: Other: As per vascular note Extrem: Other: No edema bilaterally Objective Data Active Medications Acetaminophen (Acetaminophen 325 Mg Tablet) 650 mg PO Q6H PRN PRN Reason: Pain, Mild (Pain Scale 1-3) Last Admin: 02/13/22 13:23 Dose: 650 mg Documented By: GRACIELA Amlodipine Besylate (Amlodipine Besylate 10 Mg Tablet) 10 mg PO DAILY [facility]; Protocol Last Admin: 02/13/22 07:41 Dose: 10 mg Documented By: GRACIELA Aspirin (Aspirin 81 Mg Tab.Chew) 81 mg PO DAILY [facility] Last Admin: 02/13/22 07:41 Dose: 81 mg Documented By: GRACIELA Atorvastatin Calcium (Atorvastatin Calcium 80 Mg Tablet) 80 mg PO DAILY [facility] Last Admin: 02/13/22 07:42 Dose: 80 mg Documented By: GRACIELA Cyanocobalamin (Cyanocobalamin (Vitamin B-12) 1,000 Mcg Tablet) 1,000 mcg PO DAILY [facility] Last Admin: 02/13/22 07:42 Dose: 1,000 mcg Documented By: GRACIELA Dextrose (Dextrose 50 % 25 Gm/50 Ml Syringe) 25 gm IVPUSH Q15M PRN; Protocol PRN Reason: per Hypoglycemia Standing Ord. Docusate Sodium (Docusate Sodium 100 Mg Capsule) 100 mg PO DAILY PRN PRN Reason: Constipation Enoxaparin Sodium (Enoxaparin Sodium 40 Mg/0.4 Ml Syringe) 40 mg SUBCUT Q24H [facility] Last Admin: 02/13/22 11:38 Dose: 40 mg Documented By: GRACIELA Ferrous Sulfate (Ferrous Sulfate 324 Mg Tablet.Dr) 324 mg PO DAILY [facility] Last Admin: 02/13/22 07:41 Dose: 324 mg Documented By: GRACIELA Gabapentin (Gabapentin 300 Mg Capsule) 300 mg PO TID [facility] Last Admin: 02/13/22 14:44 Dose: 300 mg Documented By: GRACIELA Glucose (Glucose Gel 15 Gm Gel..Gram.) 15 gm PO Q15M PRN; Protocol PRN Reason: per Hypoglycemia Standing Ord. Hydromorphone HCl (Hydromorphone Hcl 0.5 Mg/0.5 Ml Syringe) 0.5 mg IVPUSH Q4H PRN; Protocol PRN Reason: Pain, Severe (Pain Scale 7-10) Last Admin: 02/13/22 13:29 Dose: 0.5 mg Documented By: GRACIELA Meropenem 1 gm/ Sodium (Chloride) 100 mls @ 200 mls/hr IV Q8H [facility] Last Infusion: 02/13/22 15:17 Dose: 0 mls/hr Documented By: GRACIELA Vancomycin HCl 1,250 mg/ (Sodium Chloride) 250 mls @ 166.667 mls/hr IV Q24H [facility] Last Infusion: 02/13/22 16:24 Dose: 0 mls/hr Documented By: GRACIELA Insulin Glargine (Insulin Glargine,Hum.Rec.Anlog 100 Unit/Ml 10 Ml Vial) 68 unit SUBCUT BEDTIME [facility] Last Admin: 02/12/22 20:19 Dose: 68 unit Documented By: JANAEQC Insulin Human Lispro (Insulin Lispro 100 Unit/Ml 3 Ml Vial) 0 unit SUBCUT QIDACHS [facility]; Protocol Last Admin: 02/13/22 11:37 Dose: 2 unit Documented By: GRACIELA Naproxen (Naproxen 500 Mg Tablet) 500 mg PO BID PRN PRN Reason: Headache Last Admin: 02/06/22 08:11 Dose: 500 mg Documented By: ALLI Ondansetron HCl (Ondansetron Hcl 4 Mg/2 Ml Vial) 4 mg IVPUSH Q8H PRN PRN Reason: Nausea and Vomiting Last Admin: 02/06/22 08:10 Dose: 4 mg Documented By: ALLI Oxycodone HCl (Oxycodone Hcl Immed Release 5 Mg Tablet) 5 mg PO Q6H PRN PRN Reason: Pain, Moderate (Pain Scale 4-6 Last Admin: 02/12/22 05:49 Dose: 5 mg Documented By: GHASSAN Pharmacy Consult (Consult Rx Perform Med Rec) 1 each MISCELLANE ONCE PRN PRN Reason: Consult order Sodium Chloride (0.9 % Sodium Chloride Flush 3 Ml Syringe) 3 ml IVFLUSH QSHIFT [facility] Last Admin: 02/13/22 14:50 Dose: Not Given Documented By: GRACIELA Non-Admin Reason: No Access Sodium Chloride (0.9 % Sodium Chloride Flush 10 Ml Syringe) 5 ml IVFLUSH TID [facility] Last Admin: 02/13/22 14:44 Dose: 5 ml Documented By: GRACIELA Labs CBC & Chem 7: 02/13/22 05:21 02/13/22 05:21 Labs: Laboratory Results - last 24 hr 02/12/22 02/13/22 02/13/22 19:59 05:21 05:21 MCV 80.8 MCH 26.0 L MCHC 32.1 RDW 13.2 Plt Count 595 H MPV 10.4 Absolute Nucleated RBC 0.000 Nucleated RBC % (auto) 0.0 Estim Creat Clear Calc 49.0 Estimated GFR 39 POC Glucose 284 H 02/13/22 02/13/22 02/13/22 07:23 11:00 15:40 MCV MCH MCHC RDW Plt Count MPV Absolute Nucleated RBC Nucleated RBC % (auto) Estim Creat Clear Calc Estimated GFR POC Glucose 67 159 H 201 H Microbiology Microbiology Results: Microbiology 02/11/22 16:47 Blood Culture - Preliminary Blood - Venous No growth after 24 hours. 02/11/22 16:47 Blood Culture - Preliminary Blood - Venous No growth after 24 hours. Assessment and Plan (1) Osteomyelitis: Status: Acute (2) PAD (peripheral artery disease): Status: Acute Plan 51yo F with HTN, HLD, DM, DM neuropathy + arthropathy, CHF, DFU with chronic osteo, PAD, hx VRE infection, hx L TMTA, hx R 4th + 5th toe amputations presented with purulent discharge from R foot ulcer : osteomyelitis. T-max 102.1 degrees overnight 1.Osteomyelitis/cellulitis - Meropenem (9)/Vancomycin (5) - will continue IV antibiotics pending repeat blood cultures 2. PVD - ASA, atorvastatin - vascular surgery consulted, no operative intervention warranted at this point, adequate perfusion per prior arterial testing -outpatient vascular follow-up 3.AMY -resolved -follow renals/divalents 4.iron deficiency anemia -stable -follow clinically 5.HTN -acceptable control -adjust as indicated - amlodipine 6.DM2 - acceptable control on current therapies -lispro correctional scale -adjust as indicated VTE ppx: LMWH Patient requires continued hospitalization for IVABTX for osteomyelitis Quality Stroke Does the patient have a stroke diagnosis?: No VTE Prior VTE?: No VTE Risk Level:: Medical - moderate - high VTE Device Contraindication: Treatment Not Indicated VTE Drug Contraindication: N/A - Med Ordered
[2022-02-13 20:44] LABS: Glucose, Whole Blood 236 mg/dL (60-115)
[2022-02-13] MEDS: Insulin Glargine,Hum.rec.anlog 100 UNIT/ML 10 ML VIAL 68 UNIT SUBCUT (21:32)
[2022-02-14] VITALS (7 sets, daily range): BP systolic 114–132; BP diastolic 58–60; PULSE 78–89; RESP 16–18; TEMP 36.7–38.2; O2SAT 81–97
[2022-02-14] MEDS: HYDROmorphone HCl 0.5 MG/0.5 ML SYRINGE IVPUSH ×3 (05:50→20:10)
[2022-02-14 06:40] LABS: Hematocrit 30.1 % (37.0-47.0); Hemoglobin 9.3 g/dl (12.0-16.0); Mean Corpuscular HGB Conc 30.9 g/dl (31.0-35.0); Mean Corpuscular Hemoglobin 25.5 pg (27.0-33.0); Mean Corpuscular Volume 82.7 fL (80.0-98.0); Mean Platelet Volume 10.5 fL (9.4-12.3); Platelet Count 627 X10*3/uL (160-400); Red Blood Count 3.64 X10*6/uL (4.20-5.50); Red Cell Distribution Width 13.3 % (11.0-16.0); White Blood Count 25.9 X10*3/uL (4.8-10.8)
[2022-02-14 06:55] LABS: Creatinine Clr Calc Pharmacy 40.7; Estimated Glomerular Filt Rate 31
[2022-02-14 07:31] LABS: Glucose, Whole Blood 81 mg/dL (60-115)
[2022-02-14] MEDS: Gabapentin 300 MG CAPSULE PO ×3 (07:47→20:11)
[2022-02-14] MEDS: Atorvastatin Calcium 80 MG TABLET PO (07:47)
[2022-02-14] MEDS: Cyanocobalamin (Vitamin B-12) 1,000 MCG TABLET 1000 MCG PO (07:47)
[2022-02-14] MEDS: Aspirin 81 MG TAB.CHEW PO (07:47)
[2022-02-14] MEDS: amLODIPine Besylate 10 MG TABLET PO (07:47)
[2022-02-14] MEDS: Ferrous Sulfate 324 MG TABLET.DR PO (07:48)
[2022-02-14] MEDS: 0.9 % Sodium Chloride Flush 10 ML SYRINGE 5 ML IVFLUSH ×3 (07:48→20:11)
[2022-02-14 11:35] LABS: Glucose, Whole Blood 81 mg/dL (60-115)
[2022-02-14] MEDS: Enoxaparin Sodium 40 MG/0.4 ML SYRINGE SUBCUT (11:35)
[2022-02-14] MEDS: Acetaminophen 325 MG TABLET 650 MG PO ×2 (11:41→23:30)
--- NOTE | 2022-02-14 12:28 | P.PNIM_ITS ---
Subjective Subjective Date of Service: 02/14/22 Interval History: Feels well despite p.m. fevers to 102 Review of Systems Denies chest pain Denies shortness of breath Denies nausea vomiting diarrhea Physical Exam Vital Signs: Vital Signs: Last Vital Signs Temp 100.7 F H 02/14/22 11:27 Pulse 89 02/14/22 11:27 Resp 18 02/14/22 11:27 BP 132/60 02/14/22 11:27 Pulse Ox 95 02/14/22 11:27 O2 Del Method 02/14/22 11:27 O2 Flow Rate 2 02/14/22 11:27 BMI result Body Mass Index 36.2 Const: Other: Awake alert no acute distress Resp: Other: Clear to auscultation bilaterally no rales rhonchi or wheezes Cardio: Other: No S4; positive S1-S2; no S3 murmurs rubs or gallops GI: Other: Soft nontender nondistended normoactive bowel sounds Skin: Other: As per vascular note Extrem: Other: No edema bilaterally Objective Data Active Medications Acetaminophen (Acetaminophen 325 Mg Tablet) 650 mg PO Q6H PRN PRN Reason: Pain, Mild (Pain Scale 1-3) Last Admin: 02/14/22 11:41 Dose: 650 mg Documented By: ROXY Amlodipine Besylate (Amlodipine Besylate 10 Mg Tablet) 10 mg PO DAILY [facility]; Protocol Last Admin: 02/14/22 07:47 Dose: 10 mg Documented By: ROXY Aspirin (Aspirin 81 Mg Tab.Chew) 81 mg PO DAILY [facility] Last Admin: 02/14/22 07:47 Dose: 81 mg Documented By: ROXY Atorvastatin Calcium (Atorvastatin Calcium 80 Mg Tablet) 80 mg PO DAILY [facility] Last Admin: 02/14/22 07:47 Dose: 80 mg Documented By: ROXY Cyanocobalamin (Cyanocobalamin (Vitamin B-12) 1,000 Mcg Tablet) 1,000 mcg PO DAILY [facility] Last Admin: 02/14/22 07:47 Dose: 1,000 mcg Documented By: ROXY Dextrose (Dextrose 50 % 25 Gm/50 Ml Syringe) 25 gm IVPUSH Q15M PRN; Protocol PRN Reason: per Hypoglycemia Standing Ord. Docusate Sodium (Docusate Sodium 100 Mg Capsule) 100 mg PO DAILY PRN PRN Reason: Constipation Enoxaparin Sodium (Enoxaparin Sodium 40 Mg/0.4 Ml Syringe) 40 mg SUBCUT Q24H [facility] Last Admin: 02/14/22 11:35 Dose: 40 mg Documented By: ROXY Ferrous Sulfate (Ferrous Sulfate 324 Mg Tablet.Dr) 324 mg PO DAILY [facility] Last Admin: 02/14/22 07:48 Dose: 324 mg Documented By: ROXY Gabapentin (Gabapentin 300 Mg Capsule) 300 mg PO TID [facility] Last Admin: 02/14/22 07:47 Dose: 300 mg Documented By: ROXY Glucose (Glucose Gel 15 Gm Gel..Gram.) 15 gm PO Q15M PRN; Protocol PRN Reason: per Hypoglycemia Standing Ord. Hydromorphone HCl (Hydromorphone Hcl 0.5 Mg/0.5 Ml Syringe) 0.5 mg IVPUSH Q4H PRN; Protocol PRN Reason: Pain, Severe (Pain Scale 7-10) Last Admin: 02/14/22 05:50 Dose: 0.5 mg Documented By: TYRA Meropenem 1 gm/ Sodium (Chloride) 100 mls @ 200 mls/hr IV Q8H [facility] Last Infusion: 02/14/22 05:44 Dose: 0 mls/hr Documented By: TYRA Vancomycin HCl 1,250 mg/ (Sodium Chloride) 250 mls @ 166.667 mls/hr IV Q24H [facility] Last Infusion: 02/13/22 16:24 Dose: 0 mls/hr Documented By: GRACIELA Insulin Glargine (Insulin Glargine,Hum.Rec.Anlog 100 Unit/Ml 10 Ml Vial) 68 unit SUBCUT BEDTIME [facility] Last Admin: 02/13/22 21:32 Dose: 68 unit Documented By: TYRA Insulin Human Lispro (Insulin Lispro 100 Unit/Ml 3 Ml Vial) 0 unit SUBCUT QIDACHS [facility]; Protocol Last Admin: 02/14/22 11:33 Dose: Not Given Documented By: ROXY Non-Admin Reason: No Insulin Coverage Naproxen (Naproxen 500 Mg Tablet) 500 mg PO BID PRN PRN Reason: Headache Last Admin: 02/06/22 08:11 Dose: 500 mg Documented By: ALLI Ondansetron HCl (Ondansetron Hcl 4 Mg/2 Ml Vial) 4 mg IVPUSH Q8H PRN PRN Reason: Nausea and Vomiting Last Admin: 02/06/22 08:10 Dose: 4 mg Documented By: ALLI Oxycodone HCl (Oxycodone Hcl Immed Release 5 Mg Tablet) 5 mg PO Q6H PRN PRN Reason: Pain, Moderate (Pain Scale 4-6 Last Admin: 02/12/22 05:49 Dose: 5 mg Documented By: GHASSAN Pharmacy Consult (Consult Rx Perform Med Rec) 1 each MISCELLANE ONCE PRN PRN Reason: Consult order Sodium Chloride (0.9 % Sodium Chloride Flush 3 Ml Syringe) 3 ml IVFLUSH QSHIFT [facility] Last Admin: 02/14/22 07:47 Dose: Not Given Documented By: GRACIELA Non-Admin Reason: No Access Sodium Chloride (0.9 % Sodium Chloride Flush 10 Ml Syringe) 5 ml IVFLUSH TID [facility] Last Admin: 02/14/22 07:48 Dose: 5 ml Documented By: ROXY Labs CBC & Chem 7: 02/14/22 06:07 02/14/22 06:07 Labs: Laboratory Results - last 24 hr 02/13/22 02/13/22 02/14/22 15:40 20:37 06:07 MCV MCH MCHC RDW Plt Count MPV Absolute Nucleated RBC Nucleated RBC % (auto) Estim Creat Clear Calc 40.7 Estimated GFR 31 POC Glucose 201 H 236 H 02/14/22 02/14/22 02/14/22 06:07 07:17 11:31 MCV 82.7 MCH 25.5 L MCHC 30.9 L RDW 13.3 Plt Count 627 H MPV 10.5 Absolute Nucleated RBC 0.000 Nucleated RBC % (auto) 0.0 Estim Creat Clear Calc Estimated GFR POC Glucose 81 81 Microbiology Microbiology Results: Microbiology 02/11/22 16:47 Blood Culture - Preliminary Blood - Venous No growth after 48 hours. 02/11/22 16:47 Blood Culture - Preliminary Blood - Venous No growth after 48 hours. Assessment and Plan (1) Osteomyelitis: Status: Acute Plan 51yo F with HTN, HLD, DM, DM neuropathy + arthropathy, CHF, DFU with chronic osteo, PAD, hx VRE infection, hx L TMTA, hx R 4th + 5th toe amputations presented with purulent discharge from R foot ulcer : osteomyelitis. T-max 102.1 degrees overnight 1.Osteomyelitis/cellulitis(p.m. Fever spikes... T-max 102 degrees) - Meropenem (10)/Vancomycin (6) - will continue IV antibiotics ... repeat blood cultures thus far negative -will ask ID to re-evaluate 2. PVD - ASA, atorvastatin - vascular surgery consulted, no operative intervention warranted at this point, adequate perfusion per prior arterial testing -outpatient vascular follow-up 3.AMY -resolved -follow renals/divalents 4.iron deficiency anemia -stable -follow clinically 5.HTN -acceptable control -adjust as indicated - amlodipine 6.DM2 - acceptable control on current therapies -lispro correctional scale -adjust as indicated VTE ppx: LMWH Patient requires continued hospitalization for IVABTX for osteomyelitis Quality Stroke Does the patient have a stroke diagnosis?: No VTE Prior VTE?: No VTE Risk Level:: Medical - moderate - high VTE Device Contraindication: Treatment Not Indicated VTE Drug Contraindication: N/A - Med Ordered
[2022-02-14 13:12] LABS: Glucose, Whole Blood 88 mg/dL (60-115)
--- NOTE | 2022-02-14 13:27 | P.PNVS_ITS ---
Subjective Subjective Date of Service: 02/14/22 Patient reports: no new complaints and feels better Interval history: Very pleasant 51-year-old female presents for follow-up with right medial foot ulceration. She has had prior right sided toe amputation. That is nearly healed the more concerning part is the medial aspect. She has been having temperature spikes. High yesterday of 11.5. She is now for routine follow-up. Physical Exam Vital Signs: Vital Signs: Last Vital Signs Temp 100.7 F H 02/14/22 11:27 Pulse 89 02/14/22 11:27 Resp 18 02/14/22 11:27 BP 132/60 02/14/22 11:27 Pulse Ox 95 02/14/22 11:27 O2 Del Method 02/14/22 11:27 O2 Flow Rate 2 02/14/22 11:27 BMI result Body Mass Index 36.2 Const: General: cooperative, healthy appearing and comfortable Orientation/consciousness: oriented to person, oriented to place and oriented to time HEENT: Head: Yes normal to inspection Neck: Neck: Yes normal visual inspection Carotids: no bruits Chest: Chest palpation & inspection: normal inspection of the chest Resp: Effort & Inspection: normal respiratory effort and able to speak in complete sentences Auscultation: clear to auscultation bilaterally, no aircraft part assembler 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, no rales, no rhonchi and no wheezes Cardio: Rate: regular rate Rhythm: regular rhythm Heart sounds: S1 normal heart sound present and S2 normal heart sound present Bruits: no carotid bruits Peripheral pulses: Peripheral pulses 2+ throughout GI: Inspection: Yes normal to inspection Skin: Wounds: wounds noted (Right lateral foot healing well; right medial foot deep ulcer) Hair: normal Neuro: General: oriented to person, oriented to place and oriented to time Cranial nerves: Yes CN's II-XII intact bilaterally and Yes Normal hearing present Cognition (Neuro): normal cognition Motor exam (neuro): 5/5 motor strength present throughout Extrem: Other: venous exam: No significant superficial varicosities or spider telangiectasias, minimal edema General: No clubbing, No cyanosis and No edema Psych: Appearance: grossly normal Mental Status: mental status grossly normal Speech and movement: Normal speech and movement present Progress Note: A&P Assessment and plan (1) PAD (peripheral artery disease): Status: Acute Plan In short patient has a nonhealing right foot ulcer. In addition she has fever of unknown origin. The concern is that this may be a deep infection. If it does not heal she is at high risk for a BKA. This unfortunate that this diabetic foot ulcer has progressed. We will follow with you. Thank you for allowing us to assist in her care. Time Spent With Patient Time: Total time spent is greater than 50% in coordination of care (as documented) at patient's floor/unit and/or counseling patient: Procedures Date of Service Date of Service: 02/14/22 Quality Stroke Does the patient have a stroke diagnosis?: No VTE Prior VTE?: No VTE Risk Level:: Medical - moderate - high VTE Device Contraindication: Treatment Not Indicated VTE Drug Contraindication: N/A - Med Ordered
[2022-02-14 14:02] LABS: Vancomycin Random 22.6 mcg/mL (15-20)
--- NOTE | 2022-02-14 14:21 | HE.PHANOTE ---
Addendum entered by Jimena Streeter RPh 02/15/22 19:56: TROUGH WAS 12.5 AFTER NOT GETTING MED FOR 48 HOURS. RESTARTING AT 750MG Q24 DUE TO AMY WITH RANDOM LEVEL TOMORROW DEIDRE Original Note: RE: clotildeo Pt's renal function slowly getting worse, trough came back at 22.6 on 02/14/22. Changed dose to 750mg Q24H with predicted AUC 561 mg/L but put in another random level for tonight @2000 to adjust if necessary
--- NOTE | 2022-02-14 15:04 | MHC.CM.PN ---
PATIENT STILL FEBRILE. NO PLAN FOR DC. [facility] UPDATED IN [facility].
[2022-02-14 15:55] LABS: Glucose, Whole Blood 113 mg/dL (60-115)
[2022-02-14 19:58] LABS: Glucose, Whole Blood 183 mg/dL (60-115)
[2022-02-14] MEDS: Insulin Glargine,Hum.rec.anlog 100 UNIT/ML 10 ML VIAL 68 UNIT SUBCUT (20:11)
[2022-02-14] MEDS: Insulin Lispro 100 UNIT/ML 3 ML VIAL SUBCUT (20:11)
[2022-02-14 21:03] LABS: Vancomycin Trough 19.8 mcg/mL (10.0-20.0)
[2022-02-15 00:58] VITALS: TEMP 37.6
[2022-02-15 03:16] VITALS: BP 121/55; PULSE 82; RESP 18; TEMP 36.7; O2SAT 95
[2022-02-15 03:29] LABS: Glucose, Whole Blood 63 mg/dL (60-115)
[2022-02-15 04:27] LABS: Glucose, Whole Blood 83 mg/dL (60-115)
[2022-02-15 06:41] LABS: Basophils Absolute Auto 0.2 X10*3/uL (0.0-0.2); Basophils Percent Auto 0.6 % (0-2); Eosinophils Absolute Auto 0.6 X10*3/uL (0.0-0.4); Eosinophils Percent Auto 2.7 % (0-4); Hematocrit 27.9 % (37.0-47.0); Hemoglobin 8.6 g/dl (12.0-16.0); Imm Gran Abs Auto 0.25 X10*3/uL (0.00-0.03); Imm Gran Pct Auto 1.1 % (0.0-0.4); Lymphocytes Absolute Auto 2.9 X10*3/uL (1.2-4.9); Lymphocytes Percent Auto 12.3 % (20-40); MANUAL DIFF FLAG SCAN; Mean Corpuscular HGB Conc 30.8 g/dl (31.0-35.0); Mean Corpuscular Hemoglobin 25.7 pg (27.0-33.0); Mean Corpuscular Volume 83.5 fL (80.0-98.0); Mean Platelet Volume 10.9 fL (9.4-12.3); Monocytes Absolute Auto 2.2 X10*3/uL (0.1-1.2); Monocytes Percent Auto 9.3 % (2-11); Neutrophils Absolute Auto 17.2 x10*3/uL (2.0-8.3); Platelet Count 589 X10*3/uL (160-400); Red Blood Count 3.34 X10*6/uL (4.20-5.50); Red Cell Distribution Width 13.2 % (11.0-16.0); SCAN SMEAR FLAG 1; White Blood Count 23.2 X10*3/uL (4.8-10.8)
[2022-02-15 07:06] LABS: Creatinine Clr Calc Pharmacy 38.7; Estimated Glomerular Filt Rate 30
[2022-02-15 07:21] VITALS: BP 143/72; PULSE 87; RESP 20; TEMP 37.6; O2SAT 98
[2022-02-15 07:29] LABS: SLIDE REVIEW VERIFIED
[2022-02-15 07:35] LABS: Glucose, Whole Blood 73 mg/dL (60-115)
[2022-02-15] MEDS: HYDROmorphone HCl 0.5 MG/0.5 ML SYRINGE IVPUSH ×2 (08:34→22:31)
[2022-02-15] MEDS: Ferrous Sulfate 324 MG TABLET.DR PO (08:41)
[2022-02-15] MEDS: Aspirin 81 MG TAB.CHEW PO (08:41)
[2022-02-15] MEDS: Gabapentin 300 MG CAPSULE PO ×3 (08:41→20:26)
[2022-02-15] MEDS: amLODIPine Besylate 10 MG TABLET PO (08:42)
[2022-02-15] MEDS: Cyanocobalamin (Vitamin B-12) 1,000 MCG TABLET 1000 MCG PO (08:42)
[2022-02-15] MEDS: 0.9 % Sodium Chloride Flush 3 ML SYRINGE IVFLUSH ×3 (08:43→23:19)
[2022-02-15] MEDS: 0.9 % Sodium Chloride Flush 10 ML SYRINGE 5 ML IVFLUSH ×2 (08:43→15:06)
[2022-02-15] MEDS: Atorvastatin Calcium 80 MG TABLET PO (08:43)
[2022-02-15 11:02] VITALS: BP 125/61; PULSE 82; RESP 20; TEMP 37.3; O2SAT 95
--- NOTE | 2022-02-15 11:05 | P.PNVS_ITS ---
Subjective Subjective Date of Service: 02/15/22 Patient reports: no new complaints and feels better Interval history: Patient seen and examined. No significant events overnight. She continues to have that nonhealing right foot wound. Only area of concern is that she continues to spike low-grade temperatures. Last was 100.6. She has had no other interval issues. Now for routine follow-up. Physical Exam Vital Signs: Vital Signs: Last Vital Signs Temp 99.1 F 02/15/22 11:02 Pulse 82 02/15/22 11:02 Resp 20 02/15/22 11:02 BP 125/61 02/15/22 11:02 Pulse Ox 95 02/15/22 11:02 O2 Del Method 02/15/22 11:02 O2 Flow Rate 3 02/15/22 11:02 BMI result Body Mass Index 36.2 Const: General: cooperative, healthy appearing and no acute distress Orientation/consciousness: oriented to person, oriented to place and oriented to time HEENT: Head: Yes normal to inspection Neck: Carotids: no bruits Chest: Chest palpation & inspection: normal inspection of the chest Resp: Effort & Inspection: normal respiratory effort and able to speak in complete sentences Auscultation: clear to auscultation bilaterally Cardio: Rate: regular rate Heart sounds: S1 normal heart sound present and S2 normal heart sound present GI: Inspection: Yes normal to inspection Skin: Other: Right foot amputation site appears to be healing well. Concern is right medial aspect she has developed new ulcerations. General skin exam: no rashes or lesions noted Wounds: wounds noted Neuro: General: oriented to person, oriented to place, oriented to time and CN's II-XI intact bilaterally Extrem: General: Yes normal to inspection, Yes full ROM and Yes no clubbing, cyanosis or edema Psych: Appearance: grossly normal and well kempt Speech and movement: Normal speech and movement present Affect: normal affect Progress Note: A&P Assessment and plan (1) Diabetic foot ulcer with osteomyelitis: Status: Acute Assessment and Plan: In short patient has nonhealing right foot ulcer. The concern is her fever of unknown origin. She will need workup for that. If no other source is identified is most likely the foot. I do not believe that there would be a further salvage attempt to do a trans met. She will most likely require below- knee amputation. She is at high risk for below-knee amputation. This was discussed in detail with the patient, with mother on telephone. We will monitor her status with you. Should temperatures resolved stable from my perspective for [facility]. Thank you for allowing us to participate in her care. If there are any questions or concerns please do not hesitate to contact us. Time Spent With Patient Time: Total time spent is greater than 50% in coordination of care (as documented) at patient's floor/unit and/or counseling patient: Procedures Date of Service Date of Service: 02/15/22 Quality Stroke Does the patient have a stroke diagnosis?: No VTE Prior VTE?: No VTE Risk Level:: Medical - moderate - high VTE Device Contraindication: Treatment Not Indicated VTE Drug Contraindication: N/A - Med Ordered
[2022-02-15 11:10] LABS: Glucose, Whole Blood 95 mg/dL (60-115)
[2022-02-15] MEDS: Enoxaparin Sodium 40 MG/0.4 ML SYRINGE SUBCUT (11:29)
--- NOTE | 2022-02-15 13:02 | MHC.CM.PN ---
PER MD ROUNDS, PT WILL NOT DC TODAY DUE TO FEVERS OVERNIGHT [facility] IS OFFERING A BED ONCE PT IS MEDICALLY CLEARED, PENDING BED AVAILABILITY AND NEGATIVE PCR COVID TEST
--- NOTE | 2022-02-15 13:11 | HO.PM.IMPN ---
Subjective Subjective Date of Service: 02/15/22 Interval History: seen and examined this morning follow up for right foot infection still with low grade fever overnight Review of Systems Review of Systems: Yes all other systems are reviewed and are negative Constitutional Constitutional: Denies chills and Reports fever(s) ENT Ears, Nose, Mouth, and Throat: Denies dizziness Cardiovascular Cardiovascular: Denies chest pain, Denies palpitations and Denies dyspnea Respiratory Respiratory: Denies cough and Denies dyspnea Gastrointestinal Gastrointestinal: Denies abdominal pain, Denies nausea and Denies vomiting Neurologic Neurologic: Denies dizziness Endocrine Endocrine: Denies palpitations Physical Exam Vital Signs: Vital Signs: Last Vital Signs Temp 99.1 F 02/15/22 11:02 Pulse 82 02/15/22 11:02 Resp 20 02/15/22 11:02 BP 125/61 02/15/22 11:02 Pulse Ox 95 02/15/22 11:02 O2 Del Method 02/15/22 11:02 O2 Flow Rate 3 02/15/22 11:02 BMI result Body Mass Index 36.2 Const: General: cooperative, comfortable, alert and awake Nutritional Appearance: overweight Orientation/consciousness: patient oriented x3 Resp: Effort & Inspection: normal respiratory effort and able to speak in complete sentences Cardio: Rate: regular rate Heart sounds: S1 normal heart sound present and S2 normal heart sound present GI: Inspection: No Abdominal wall edema Palpation (GI): Soft to palpation and nontender Skin: Other: Neuro: General: patient oriented x3 and CN's II-XI intact bilaterally Extrem: General: Yes no pedal edema Objective Data Active Medications Acetaminophen (Acetaminophen 325 Mg Tablet) 650 mg PO Q6H PRN PRN Reason: Pain, Mild (Pain Scale 1-3) Last Admin: 02/14/22 23:30 Dose: 650 mg Documented By: TYRA Amlodipine Besylate (Amlodipine Besylate 10 Mg Tablet) 10 mg PO DAILY [facility]; Protocol Last Admin: 02/15/22 08:42 Dose: 10 mg Documented By: MAYUR Aspirin (Aspirin 81 Mg Tab.Chew) 81 mg PO DAILY [facility] Last Admin: 02/15/22 08:41 Dose: 81 mg Documented By: MAYUR Atorvastatin Calcium (Atorvastatin Calcium 80 Mg Tablet) 80 mg PO DAILY [facility] Last Admin: 02/15/22 08:43 Dose: 80 mg Documented By: MAYUR Cyanocobalamin (Cyanocobalamin (Vitamin B-12) 1,000 Mcg Tablet) 1,000 mcg PO DAILY [facility] Last Admin: 02/15/22 08:42 Dose: 1,000 mcg Documented By: MAYUR Dextrose (Dextrose 50 % 25 Gm/50 Ml Syringe) 25 gm IVPUSH Q15M PRN; Protocol PRN Reason: per Hypoglycemia Standing Ord. Docusate Sodium (Docusate Sodium 100 Mg Capsule) 100 mg PO DAILY PRN PRN Reason: Constipation Enoxaparin Sodium (Enoxaparin Sodium 40 Mg/0.4 Ml Syringe) 40 mg SUBCUT Q24H [facility] Last Admin: 02/15/22 11:29 Dose: 40 mg Documented By: MAYUR Ferrous Sulfate (Ferrous Sulfate 324 Mg Tablet.Dr) 324 mg PO DAILY [facility] Last Admin: 02/15/22 08:41 Dose: 324 mg Documented By: MAYUR Gabapentin (Gabapentin 300 Mg Capsule) 300 mg PO TID [facility] Last Admin: 02/15/22 08:41 Dose: 300 mg Documented By: MAYUR Glucose (Glucose Gel 15 Gm Gel..Gram.) 15 gm PO Q15M PRN; Protocol PRN Reason: per Hypoglycemia Standing Ord. Hydromorphone HCl (Hydromorphone Hcl 0.5 Mg/0.5 Ml Syringe) 0.5 mg IVPUSH Q4H PRN; Protocol PRN Reason: Pain, Severe (Pain Scale 7-10) Last Admin: 02/15/22 08:34 Dose: 0.5 mg Documented By: MAYUR Vancomycin HCl 750 mg/ Sodium (Chloride) 265 mls @ 265 mls/hr IV Q24H [facility] Meropenem 1 gm/ Sodium (Chloride) 100 mls @ 200 mls/hr IV Q12H [facility] Last Infusion: 02/15/22 02:25 Dose: 0 mls/hr Documented By: TYRA Insulin Glargine (Insulin Glargine,Hum.Rec.Anlog 100 Unit/Ml 10 Ml Vial) 68 unit SUBCUT BEDTIME [facility] Last Admin: 02/14/22 20:11 Dose: 68 unit Documented By: TYRA Insulin Human Lispro (Insulin Lispro 100 Unit/Ml 3 Ml Vial) 0 unit SUBCUT QIDACHS [facility]; Protocol Last Admin: 02/15/22 11:25 Dose: Not Given Documented By: MAYUR Non-Admin Reason: No Insulin Coverage Naproxen (Naproxen 500 Mg Tablet) 500 mg PO BID PRN PRN Reason: Headache Last Admin: 02/06/22 08:11 Dose: 500 mg Documented By: ALLI Ondansetron HCl (Ondansetron Hcl 4 Mg/2 Ml Vial) 4 mg IVPUSH Q8H PRN PRN Reason: Nausea and Vomiting Last Admin: 02/06/22 08:10 Dose: 4 mg Documented By: ALLI Oxycodone HCl (Oxycodone Hcl Immed Release 5 Mg Tablet) 5 mg PO Q6H PRN PRN Reason: Pain, Moderate (Pain Scale 4-6 Last Admin: 02/12/22 05:49 Dose: 5 mg Documented By: GHASSAN Pharmacy Consult (Consult Rx Perform Med Rec) 1 each MISCELLANE ONCE PRN PRN Reason: Consult order Sodium Chloride (0.9 % Sodium Chloride Flush 3 Ml Syringe) 3 ml IVFLUSH QSHIFT [facility] Last Admin: 02/15/22 08:43 Dose: 3 ml Documented By: MAYUR Sodium Chloride (0.9 % Sodium Chloride Flush 10 Ml Syringe) 5 ml IVFLUSH TID [facility] Last Admin: 02/15/22 08:43 Dose: 5 ml Documented By: MAYUR Labs CBC & Chem 7: 02/15/22 06:11 02/15/22 06:11 Labs: Laboratory Results - last 24 hr 02/14/22 02/14/22 02/14/22 12:59 13:17 15:43 MCV MCH MCHC RDW Plt Count MPV Immature Gran % (Auto) Neut % (Auto) Lymph % (Auto) [place] % (Auto) Eos % (Auto) Baso % (Auto) Lymph # (Auto) [place] # (Auto) Eos # (Auto) Baso # (Auto) Abs Immat Gran (auto) Absolute Neuts (auto) Absolute Nucleated RBC Nucleated RBC % (auto) Smear Tech's Comments Estim Creat Clear Calc Estimated GFR POC Glucose 88 113 Vancomycin Trough Random Vancomycin 22.6 H 02/14/22 02/14/22 02/15/22 19:44 20:07 03:24 MCV MCH MCHC RDW Plt Count MPV Immature Gran % (Auto) Neut % (Auto) Lymph % (Auto) [place] % (Auto) Eos % (Auto) Baso % (Auto) Lymph # (Auto) [place] # (Auto) Eos # (Auto) Baso # (Auto) Abs Immat Gran (auto) Absolute Neuts (auto) Absolute Nucleated RBC Nucleated RBC % (auto) Smear Tech's Comments Estim Creat Clear Calc Estimated GFR POC Glucose 183 H 63 Vancomycin Trough 19.8 Random Vancomycin 02/15/22 02/15/22 02/15/22 04:22 06:11 06:11 MCV 83.5 MCH 25.7 L MCHC 30.8 L RDW 13.2 Plt Count 589 H MPV 10.9 Immature Gran % (Auto) 1.1 H Neut % (Auto) 74.0 H Lymph % (Auto) 12.3 L [place] % (Auto) 9.3 Eos % (Auto) 2.7 Baso % (Auto) 0.6 Lymph # (Auto) 2.9 [place] # (Auto) 2.2 H Eos # (Auto) 0.6 H Baso # (Auto) 0.2 Abs Immat Gran (auto) 0.25 H Absolute Neuts (auto) 17.2 H Absolute Nucleated RBC 0.000 Nucleated RBC % (auto) 0.0 Smear Tech's Comments VERIFIED Estim Creat Clear Calc 38.7 Estimated GFR 30 POC Glucose 83 Vancomycin Trough Random Vancomycin 02/15/22 02/15/22 07:24 11:04 MCV MCH MCHC RDW Plt Count MPV Immature Gran % (Auto) Neut % (Auto) Lymph % (Auto) [place] % (Auto) Eos % (Auto) Baso % (Auto) Lymph # (Auto) [place] # (Auto) Eos # (Auto) Baso # (Auto) Abs Immat Gran (auto) Absolute Neuts (auto) Absolute Nucleated RBC Nucleated RBC % (auto) Smear Tech's Comments Estim Creat Clear Calc Estimated GFR POC Glucose 73 95 Vancomycin Trough Random Vancomycin Assessment and Plan (1) AMY (acute kidney injury): Status: Acute (2) Osteomyelitis: Status: Acute Plan 51yo F with HTN, HLD, DM, DM neuropathy + arthropathy, CHF, DFU with chronic osteo, PAD, hx VRE infection, hx L TMTA, hx R 4th + 5th toe amputations presented with purulent discharge from R foot ulcer : osteomyelitis. Osteomyelitis/cellulitis . continues to have low-grade fever, persistently elevated white count continue Meropenem since /Vancomycin since discussed with ID, does not need long-term IV antibiotics upon discharge as osteo is chronic, would treat as cellulitis with levaquin ultimately will likely need BKA PVD ASA, atorvastatin vascular surgery consulted, no operative intervention warranted at this point, adequate perfusion per prior arterial testing outpatient vascular follow-up AMY creatinine up to 1.8 d/c NSAIDs gentle IVF x 500 cc follow renal function iron deficiency anemia continue iron supplementation H/H stable HTN continue home Norvasc DM2 continue Lantus, sliding scale attending-Dr. Bernard VTE ppx: LMWH Patient requires continued hospitalization for IVABTX for foot wound Quality Stroke Does the patient have a stroke diagnosis?: No VTE Prior VTE?: No VTE Risk Level:: Medical - moderate - high VTE Device Contraindication: Treatment Not Indicated VTE Drug Contraindication: N/A - Med Ordered
[2022-02-15 13:42] LABS: Glucose, Whole Blood 61 mg/dL (60-115)
[2022-02-15 14:35] LABS: Glucose, Whole Blood 102 mg/dL (60-115)
[2022-02-15 15:42] VITALS: BP 116/56; PULSE 85; RESP 18; TEMP 36.8; O2SAT 95
[2022-02-15 16:42] LABS: Glucose, Whole Blood 160 mg/dL (60-115)
[2022-02-15] MEDS: Lactated Ringers 500 ML 100 ML IVCONT (16:47)
[2022-02-15] MEDS: Insulin Lispro 100 UNIT/ML 3 ML VIAL SUBCUT (16:47)
[2022-02-15 19:43] LABS: Vancomycin Random 12.5 mcg/mL (15-20)
[2022-02-15 20:00] VITALS: BP 128/75; PULSE 78; RESP 16; TEMP 36.8; O2SAT 97
[2022-02-15] MEDS: vancomycin HCL 750 MG in 0.9 % Sodium Chloride 250 ML 265 MG IV (20:26)
[2022-02-15 21:24] LABS: Glucose, Whole Blood 128 mg/dL (60-115)
[2022-02-15] MEDS: Insulin Glargine,Hum.rec.anlog 100 UNIT/ML 10 ML VIAL 50 UNIT SUBCUT (21:40)
[2022-02-16] VITALS (8 sets, daily range): BP systolic 116–142; BP diastolic 55–87; PULSE 79–92; RESP 16–20; TEMP 36.9–38; O2SAT 90–95
[2022-02-16] MEDS: oxyCODONE HCl Immed Release 5 MG TABLET PO (02:09)
[2022-02-16 04:15] LABS: Glucose, Whole Blood 211 mg/dL (60-115)
[2022-02-16 06:15] LABS: Basophils Absolute Auto 0.1 X10*3/uL (0.0-0.2); Basophils Percent Auto 0.6 % (0-2); Eosinophils Absolute Auto 0.7 X10*3/uL (0.0-0.4); Eosinophils Percent Auto 3.2 % (0-4); Imm Gran Abs Auto 0.21 X10*3/uL (0.00-0.03); Lymphocytes Absolute Auto 2.7 X10*3/uL (1.2-4.9); Lymphocytes Percent Auto 13.3 % (20-40); MANUAL DIFF FLAG SCAN; Mean Corpuscular HGB Conc 30.8 g/dl (31.0-35.0); Mean Corpuscular Hemoglobin 25.2 pg (27.0-33.0); Mean Platelet Volume 10.1 fL (9.4-12.3); Monocytes Percent Auto 10.1 % (2-11); Neutrophils Absolute Auto 14.6 x10*3/uL (2.0-8.3); Neutrophils Percent Auto 71.8 % (45-73); Platelet Count 615 X10*3/uL (160-400); Red Blood Count 3.17 X10*6/uL (4.20-5.50); Red Cell Distribution Width 13.2 % (11.0-16.0); SCAN SMEAR FLAG 1; White Blood Count 20.3 X10*3/uL (4.8-10.8)
[2022-02-16 06:28] LABS: SLIDE REVIEW VERIFIED
[2022-02-16 06:34] LABS: Anion Gap 16 (12-20); Blood Urea Nitrogen 19 mg/dL (9-16); Calcium 7.8 mg/dL (8.4-10.2); Carbon Dioxide 24 mmol/L (22-29); Chloride 103 mmol/L (96-108); Estimated Glomerular Filt Rate 34; Glucose Random 163 mg/dL (60-115); Sodium 139 mmol/L (135-145)
[2022-02-16 07:28] LABS: Glucose, Whole Blood 124 mg/dL (60-115)
[2022-02-16] MEDS: Atorvastatin Calcium 80 MG TABLET PO (08:20)
[2022-02-16] MEDS: Ferrous Sulfate 324 MG TABLET.DR PO (08:21)
[2022-02-16] MEDS: Cyanocobalamin (Vitamin B-12) 1,000 MCG TABLET 1000 MCG PO (08:21)
[2022-02-16] MEDS: Gabapentin 300 MG CAPSULE PO ×3 (08:21→20:34)
[2022-02-16] MEDS: 0.9 % Sodium Chloride Flush 10 ML SYRINGE 5 ML IVFLUSH ×3 (08:21→21:38)
[2022-02-16] MEDS: amLODIPine Besylate 10 MG TABLET PO (08:21)
[2022-02-16] MEDS: Aspirin 81 MG TAB.CHEW PO (08:21)
[2022-02-16] MEDS: Enoxaparin Sodium 40 MG/0.4 ML SYRINGE SUBCUT (10:21)
[2022-02-16] MEDS: HYDROmorphone HCl 0.5 MG/0.5 ML SYRINGE IVPUSH ×2 (10:22→22:41)
--- NOTE | 2022-02-16 10:40 | HO.PM.IMPN ---
Subjective Subjective Date of Service: 02/16/22 Interval History: follow up for right foot infection still with low grade fever overnight Review of Systems Review of Systems: Yes all other systems are reviewed and are negative Constitutional Constitutional: Denies chills and Reports fever(s) ENT Ears, Nose, Mouth, and Throat: Denies dizziness Cardiovascular Cardiovascular: Denies chest pain, Denies palpitations and Denies dyspnea Respiratory Respiratory: Denies cough and Denies dyspnea Gastrointestinal Gastrointestinal: Denies abdominal pain, Denies nausea and Denies vomiting Neurologic Neurologic: Denies dizziness Endocrine Endocrine: Denies palpitations Physical Exam Vital Signs: Vital Signs: Last Vital Signs Temp 100.4 F 02/16/22 07:52 Pulse 79 02/16/22 07:52 Resp 18 02/16/22 07:52 BP 117/56 L 02/16/22 07:52 Pulse Ox 90 L 02/16/22 07:52 O2 Del Method 02/16/22 07:52 O2 Flow Rate 3.0 02/16/22 07:52 BMI result Body Mass Index 36.2 Appearing in no acute distress lung sounds are clear to auscultation heart regular rate rhythm, clear S1, S2 positive bowel sounds, abdomen is soft, nontender neuro patient is alert x3, no focal deficits Objective Data Active Medications Acetaminophen (Acetaminophen 325 Mg Tablet) 650 mg PO Q6H PRN PRN Reason: Pain, Mild (Pain Scale 1-3) Last Admin: 02/14/22 23:30 Dose: 650 mg Documented By: TYRA Amlodipine Besylate (Amlodipine Besylate 10 Mg Tablet) 10 mg PO DAILY [facility]; Protocol Last Admin: 02/16/22 08:21 Dose: 10 mg Documented By: STANTON Aspirin (Aspirin 81 Mg Tab.Chew) 81 mg PO DAILY [facility] Last Admin: 02/16/22 08:21 Dose: 81 mg Documented By: STANTON Atorvastatin Calcium (Atorvastatin Calcium 80 Mg Tablet) 80 mg PO DAILY [facility] Last Admin: 02/16/22 08:20 Dose: 80 mg Documented By: STANTON Cyanocobalamin (Cyanocobalamin (Vitamin B-12) 1,000 Mcg Tablet) 1,000 mcg PO DAILY [facility] Last Admin: 02/16/22 08:21 Dose: 1,000 mcg Documented By: STANTON Dextrose (Dextrose 50 % 25 Gm/50 Ml Syringe) 25 gm IVPUSH Q15M PRN; Protocol PRN Reason: per Hypoglycemia Standing Ord. Docusate Sodium (Docusate Sodium 100 Mg Capsule) 100 mg PO DAILY PRN PRN Reason: Constipation Enoxaparin Sodium (Enoxaparin Sodium 40 Mg/0.4 Ml Syringe) 40 mg SUBCUT Q24H [facility] Last Admin: 02/16/22 10:21 Dose: 40 mg Documented By: STANTON Ferrous Sulfate (Ferrous Sulfate 324 Mg Tablet.Dr) 324 mg PO DAILY [facility] Last Admin: 02/16/22 08:21 Dose: 324 mg Documented By: STANTON Gabapentin (Gabapentin 300 Mg Capsule) 300 mg PO TID [facility] Last Admin: 02/16/22 08:21 Dose: 300 mg Documented By: STANTON Glucose (Glucose Gel 15 Gm Gel..Gram.) 15 gm PO Q15M PRN; Protocol PRN Reason: per Hypoglycemia Standing Ord. Hydromorphone HCl (Hydromorphone Hcl 0.5 Mg/0.5 Ml Syringe) 0.5 mg IVPUSH Q4H PRN; Protocol PRN Reason: Pain, Severe (Pain Scale 7-10) Last Admin: 02/16/22 10:22 Dose: 0.5 mg Documented By: STANTON Vancomycin HCl 750 mg/ Sodium (Chloride) 265 mls @ 265 mls/hr IV Q24H [facility] Last Infusion: 02/15/22 21:54 Dose: 0 mls/hr Documented By: MIKE Meropenem 1 gm/ Sodium (Chloride) 100 mls @ 200 mls/hr IV Q12H [facility] Last Infusion: 02/16/22 02:45 Dose: 0 mls/hr Documented By: MIKE Insulin Glargine (Insulin Glargine,Hum.Rec.Anlog 100 Unit/Ml 10 Ml Vial) 50 unit SUBCUT BEDTIME [facility] Last Admin: 02/15/22 21:40 Dose: 50 unit Documented By: MIKE Insulin Human Lispro (Insulin Lispro 100 Unit/Ml 3 Ml Vial) 0 unit SUBCUT QIDACHS [facility]; Protocol Last Admin: 02/16/22 07:30 Dose: Not Given Documented By: STANTON Non-Admin Reason: No Insulin Coverage Ondansetron HCl (Ondansetron Hcl 4 Mg/2 Ml Vial) 4 mg IVPUSH Q8H PRN PRN Reason: Nausea and Vomiting Last Admin: 02/06/22 08:10 Dose: 4 mg Documented By: ALLI Pharmacy Consult (Consult Rx Perform Med Rec) 1 each MISCELLANE ONCE PRN PRN Reason: Consult order Sodium Chloride (0.9 % Sodium Chloride Flush 3 Ml Syringe) 3 ml IVFLUSH QSHIFT [facility] Last Admin: 02/16/22 08:28 Dose: Not Given Documented By: STANTON Non-Admin Reason: flushed pic w/ 5ml Sodium Chloride (0.9 % Sodium Chloride Flush 10 Ml Syringe) 5 ml IVFLUSH TID [facility] Last Admin: 02/16/22 08:21 Dose: 5 ml Documented By: STANTON Labs CBC & Chem 7: 02/16/22 05:51 02/16/22 05:51 Labs: Laboratory Results - last 24 hr 02/15/22 02/15/22 02/15/22 11:04 13:37 14:31 MCV MCH MCHC RDW Plt Count MPV Immature Gran % (Auto) Neut % (Auto) Lymph % (Auto) [place] % (Auto) Eos % (Auto) Baso % (Auto) Lymph # (Auto) [place] # (Auto) Eos # (Auto) Baso # (Auto) Abs Immat Gran (auto) Absolute Neuts (auto) Absolute Nucleated RBC Nucleated RBC % (auto) Smear Tech's Comments Anion Gap Estim Creat Clear Calc Estimated GFR POC Glucose 95 61 102 Random Glucose Calcium Random Vancomycin 02/15/22 02/15/22 02/15/22 16:35 19:00 21:05 MCV MCH MCHC RDW Plt Count MPV Immature Gran % (Auto) Neut % (Auto) Lymph % (Auto) [place] % (Auto) Eos % (Auto) Baso % (Auto) Lymph # (Auto) [place] # (Auto) Eos # (Auto) Baso # (Auto) Abs Immat Gran (auto) Absolute Neuts (auto) Absolute Nucleated RBC Nucleated RBC % (auto) Smear Tech's Comments Anion Gap Estim Creat Clear Calc Estimated GFR POC Glucose 160 H 128 H Random Glucose Calcium Random Vancomycin 12.5 L 02/16/22 02/16/22 02/16/22 04:05 05:51 05:51 MCV 82.0 MCH 25.2 L MCHC 30.8 L RDW 13.2 Plt Count 615 H MPV 10.1 Immature Gran % (Auto) 1.0 H Neut % (Auto) 71.8 Lymph % (Auto) 13.3 L [place] % (Auto) 10.1 Eos % (Auto) 3.2 Baso % (Auto) 0.6 Lymph # (Auto) 2.7 [place] # (Auto) 2.0 H Eos # (Auto) 0.7 H Baso # (Auto) 0.1 Abs Immat Gran (auto) 0.21 H Absolute Neuts (auto) 14.6 H Absolute Nucleated RBC 0.000 Nucleated RBC % (auto) 0.0 Smear Tech's Comments VERIFIED Anion Gap 16 Estim Creat Clear Calc 44.0 Estimated GFR 34 POC Glucose 211 H Random Glucose 163 H Calcium 7.8 L D Random Vancomycin 02/16/22 07:19 MCV MCH MCHC RDW Plt Count MPV Immature Gran % (Auto) Neut % (Auto) Lymph % (Auto) [place] % (Auto) Eos % (Auto) Baso % (Auto) Lymph # (Auto) [place] # (Auto) Eos # (Auto) Baso # (Auto) Abs Immat Gran (auto) Absolute Neuts (auto) Absolute Nucleated RBC Nucleated RBC % (auto) Smear Tech's Comments Anion Gap Estim Creat Clear Calc Estimated GFR POC Glucose 124 H Random Glucose Calcium Random Vancomycin Assessment and Plan (1) AMY (acute kidney injury): Status: Acute (2) Osteomyelitis: Status: Acute Plan 51yo F with HTN, HLD, DM, DM neuropathy + arthropathy, CHF, DFU with chronic osteo, PAD, hx VRE infection, hx L TMTA, hx R 4th + 5th toe amputations presented with purulent discharge from R foot ulcer : osteomyelitis. Osteomyelitis/cellulitis . continues to have low-grade fever, persistently elevated white count but trending down continue Meropenem since /Vancomycin since discussed with ID, does not need long-term IV antibiotics upon discharge as osteo is chronic, would treat as cellulitis with levaquin ultimately will likely need BKA PVD ASA, atorvastatin vascular surgery consulted, no operative intervention warranted at this point, adequate perfusion per prior arterial testing outpatient vascular follow-up AMY creatinine 1.59 d/c NSAIDs s/p gentle IVF x 500 cc follow renal function iron deficiency anemia continue iron supplementation H/H stable HTN continue home Norvasc DM2 continue Lantus, sliding scale attending-Dr. Vela VTE ppx: LMWH Patient requires continued hospitalization for IVABTX for foot wound Quality Stroke Does the patient have a stroke diagnosis?: No VTE Prior VTE?: No VTE Risk Level:: Medical - moderate - high VTE Device Contraindication: Treatment Not Indicated VTE Drug Contraindication: N/A - Med Ordered
[2022-02-16 11:16] LABS: Glucose, Whole Blood 108 mg/dL (60-115)
[2022-02-16] MEDS: 0.9 % Sodium Chloride Flush 3 ML SYRINGE IVFLUSH ×2 (14:47→20:35)
[2022-02-16 16:36] LABS: Glucose, Whole Blood 143 mg/dL (60-115)
[2022-02-16 19:36] LABS: Vancomycin Random 15.1 mcg/mL (15-20)
--- NOTE | 2022-02-16 19:53 | HE.PHANOTE ---
RE ORINO WILL KEEP DOSE THE SAME. SCR FLUCTUATING, SO WILL GET RANDOM LEVEL TOMORROW DEIDRE
[2022-02-16] MEDS: vancomycin HCL 750 MG in 0.9 % Sodium Chloride 250 ML 265 MG IV (20:34)
[2022-02-16 21:16] LABS: Glucose, Whole Blood 263 mg/dL (60-115)
[2022-02-16] MEDS: Insulin Lispro 100 UNIT/ML 3 ML VIAL SUBCUT (21:37)
[2022-02-16] MEDS: Insulin Glargine,Hum.rec.anlog 100 UNIT/ML 10 ML VIAL 50 UNIT SUBCUT (21:38)
[2022-02-17 03:55] VITALS: BP 135/63; PULSE 89; RESP 17; TEMP 36.7; O2SAT 94
[2022-02-17 06:29] LABS: Basophils Absolute Auto 0.1 X10*3/uL (0.0-0.2); Basophils Percent Auto 0.5 % (0-2); Eosinophils Absolute Auto 0.7 X10*3/uL (0.0-0.4); Eosinophils Percent Auto 3.6 % (0-4); Hematocrit 26.6 % (37.0-47.0); Hemoglobin 8.1 g/dl (12.0-16.0); Imm Gran Abs Auto 0.18 X10*3/uL (0.00-0.03); Imm Gran Pct Auto 0.9 % (0.0-0.4); Lymphocytes Absolute Auto 2.7 X10*3/uL (1.2-4.9); Lymphocytes Percent Auto 13.8 % (20-40); MANUAL DIFF FLAG SCAN; Mean Corpuscular HGB Conc 30.5 g/dl (31.0-35.0); Mean Corpuscular Hemoglobin 25.1 pg (27.0-33.0); Mean Corpuscular Volume 82.4 fL (80.0-98.0); Mean Platelet Volume 10.3 fL (9.4-12.3); Monocytes Percent Auto 10.1 % (2-11); Neutrophils Percent Auto 71.1 % (45-73); Platelet Count 642 X10*3/uL (160-400); Red Blood Count 3.23 X10*6/uL (4.20-5.50); Red Cell Distribution Width 13.2 % (11.0-16.0); SCAN SMEAR FLAG 1; White Blood Count 19.8 X10*3/uL (4.8-10.8)
[2022-02-17 07:10] LABS: Creatinine Clr Calc Pharmacy 45.5; Estimated Glomerular Filt Rate 36
[2022-02-17 07:26] LABS: SLIDE REVIEW VERIFIED
[2022-02-17 08:00] VITALS: BP 131/62; PULSE 89; RESP 17; TEMP 36.7; O2SAT 98
[2022-02-17 08:06] LABS: Glucose, Whole Blood 134 mg/dL (60-115)
[2022-02-17] MEDS: Aspirin 81 MG TAB.CHEW PO (09:09)
[2022-02-17] MEDS: Ferrous Sulfate 324 MG TABLET.DR PO (09:09)
[2022-02-17] MEDS: Atorvastatin Calcium 80 MG TABLET PO (09:09)
[2022-02-17] MEDS: Cyanocobalamin (Vitamin B-12) 1,000 MCG TABLET 1000 MCG PO (09:09)
[2022-02-17] MEDS: amLODIPine Besylate 10 MG TABLET PO (09:09)
[2022-02-17] MEDS: HYDROmorphone HCl 0.5 MG/0.5 ML SYRINGE IVPUSH ×3 (09:09→19:52)
[2022-02-17] MEDS: Gabapentin 300 MG CAPSULE PO ×3 (09:09→20:40)
[2022-02-17] MEDS: 0.9 % Sodium Chloride Flush 3 ML SYRINGE IVFLUSH ×2 (09:10→15:35)
--- NOTE | 2022-02-17 09:42 | HO.PM.IMPN ---
Subjective Subjective Date of Service: 02/17/22 Interval History: follow up for right foot infection No fever overnight Doing well, mild pain to foot Review of Systems Review of Systems: Yes all other systems are reviewed and are negative Constitutional Constitutional: Denies chills and Reports fever(s) ENT Ears, Nose, Mouth, and Throat: Denies dizziness Cardiovascular Cardiovascular: Denies chest pain, Denies palpitations and Denies dyspnea Respiratory Respiratory: Denies cough and Denies dyspnea Gastrointestinal Gastrointestinal: Denies abdominal pain, Denies nausea and Denies vomiting Neurologic Neurologic: Denies dizziness Endocrine Endocrine: Denies palpitations Physical Exam Vital Signs: Vital Signs: Last Vital Signs Temp 98.1 F 02/17/22 08:00 Pulse 89 02/17/22 08:00 Resp 17 02/17/22 08:00 BP 131/62 02/17/22 08:00 Pulse Ox 98 02/17/22 08:00 O2 Del Method 02/17/22 08:00 O2 Flow Rate 3.0 02/17/22 08:00 BMI result Body Mass Index 36.2 Appearing in no acute distress lung sounds are clear to auscultation heart regular rate rhythm, clear S1, S2 positive bowel sounds, abdomen is soft, nontender neuro patient is alert x3, no focal deficits Objective Data Active Medications Acetaminophen (Acetaminophen 325 Mg Tablet) 650 mg PO Q6H PRN PRN Reason: Pain, Mild (Pain Scale 1-3) Last Admin: 02/14/22 23:30 Dose: 650 mg Documented By: TYRA Amlodipine Besylate (Amlodipine Besylate 10 Mg Tablet) 10 mg PO DAILY [facility]; Protocol Last Admin: 02/17/22 09:09 Dose: 10 mg Documented By: STANTON Aspirin (Aspirin 81 Mg Tab.Chew) 81 mg PO DAILY [facility] Last Admin: 02/17/22 09:09 Dose: 81 mg Documented By: STANTON Atorvastatin Calcium (Atorvastatin Calcium 80 Mg Tablet) 80 mg PO DAILY [facility] Last Admin: 02/17/22 09:09 Dose: 80 mg Documented By: STANTON Cyanocobalamin (Cyanocobalamin (Vitamin B-12) 1,000 Mcg Tablet) 1,000 mcg PO DAILY [facility] Last Admin: 02/17/22 09:09 Dose: 1,000 mcg Documented By: STANTON Dextrose (Dextrose 50 % 25 Gm/50 Ml Syringe) 25 gm IVPUSH Q15M PRN; Protocol PRN Reason: per Hypoglycemia Standing Ord. Docusate Sodium (Docusate Sodium 100 Mg Capsule) 100 mg PO DAILY PRN PRN Reason: Constipation Enoxaparin Sodium (Enoxaparin Sodium 40 Mg/0.4 Ml Syringe) 40 mg SUBCUT Q24H [facility] Last Admin: 02/16/22 10:21 Dose: 40 mg Documented By: STANTON Ferrous Sulfate (Ferrous Sulfate 324 Mg Tablet.Dr) 324 mg PO DAILY [facility] Last Admin: 02/17/22 09:09 Dose: 324 mg Documented By: STANTON Gabapentin (Gabapentin 300 Mg Capsule) 300 mg PO TID [facility] Last Admin: 02/17/22 09:09 Dose: 300 mg Documented By: STANTON Glucose (Glucose Gel 15 Gm Gel..Gram.) 15 gm PO Q15M PRN; Protocol PRN Reason: per Hypoglycemia Standing Ord. Hydromorphone HCl (Hydromorphone Hcl 0.5 Mg/0.5 Ml Syringe) 0.5 mg IVPUSH Q4H PRN; Protocol PRN Reason: Pain, Severe (Pain Scale 7-10) Last Admin: 02/17/22 09:09 Dose: 0.5 mg Documented By: STANTON Vancomycin HCl 750 mg/ Sodium (Chloride) 265 mls @ 265 mls/hr IV Q24H [facility] Last Infusion: 02/16/22 21:42 Dose: 0 mls/hr Documented By: GHASSAN Meropenem 1 gm/ Sodium (Chloride) 100 mls @ 200 mls/hr IV Q12H [facility] Last Infusion: 02/17/22 02:37 Dose: 100 mls/hr Documented By: GHASSAN Insulin Glargine (Insulin Glargine,Hum.Rec.Anlog 100 Unit/Ml 10 Ml Vial) 50 unit SUBCUT BEDTIME [facility] Last Admin: 02/16/22 21:38 Dose: 50 unit Documented By: GHASSAN Insulin Human Lispro (Insulin Lispro 100 Unit/Ml 3 Ml Vial) 0 unit SUBCUT QIDACHS [facility]; Protocol Last Admin: 02/17/22 07:31 Dose: Not Given Documented By: STANTON Non-Admin Reason: No Insulin Coverage Ondansetron HCl (Ondansetron Hcl 4 Mg/2 Ml Vial) 4 mg IVPUSH Q8H PRN PRN Reason: Nausea and Vomiting Last Admin: 02/06/22 08:10 Dose: 4 mg Documented By: ALLI Pharmacy Consult (Consult Rx Perform Med Rec) 1 each MISCELLANE ONCE PRN PRN Reason: Consult order Sodium Chloride (0.9 % Sodium Chloride Flush 3 Ml Syringe) 3 ml IVFLUSH QSHIFT [facility] Last Admin: 02/17/22 09:10 Dose: 3 ml Documented By: STANTON Sodium Chloride (0.9 % Sodium Chloride Flush 10 Ml Syringe) 5 ml IVFLUSH TID [facility] Last Admin: 02/17/22 09:18 Dose: Not Given Documented By: STANTON Non-Admin Reason: Duplicate Order Labs CBC & Chem 7: 02/17/22 05:38 02/17/22 05:38 Labs: Laboratory Results - last 24 hr 02/16/22 02/16/22 02/16/22 11:08 16:00 19:01 MCV MCH MCHC RDW Plt Count MPV Immature Gran % (Auto) Neut % (Auto) Lymph % (Auto) [place] % (Auto) Eos % (Auto) Baso % (Auto) Lymph # (Auto) [place] # (Auto) Eos # (Auto) Baso # (Auto) Abs Immat Gran (auto) Absolute Neuts (auto) Absolute Nucleated RBC Nucleated RBC % (auto) Smear Tech's Comments Estim Creat Clear Calc Estimated GFR POC Glucose 108 143 H Random Vancomycin 15.1 02/16/22 02/17/22 02/17/22 20:56 05:38 05:38 MCV 82.4 MCH 25.1 L MCHC 30.5 L RDW 13.2 Plt Count 642 H MPV 10.3 Immature Gran % (Auto) 0.9 H Neut % (Auto) 71.1 Lymph % (Auto) 13.8 L [place] % (Auto) 10.1 Eos % (Auto) 3.6 Baso % (Auto) 0.5 Lymph # (Auto) 2.7 [place] # (Auto) 2.0 H Eos # (Auto) 0.7 H Baso # (Auto) 0.1 Abs Immat Gran (auto) 0.18 H Absolute Neuts (auto) 14.0 H Absolute Nucleated RBC 0.000 Nucleated RBC % (auto) 0.0 Smear Tech's Comments VERIFIED Estim Creat Clear Calc 45.5 Estimated GFR 36 POC Glucose 263 H Random Vancomycin 02/17/22 07:17 MCV MCH MCHC RDW Plt Count MPV Immature Gran % (Auto) Neut % (Auto) Lymph % (Auto) [place] % (Auto) Eos % (Auto) Baso % (Auto) Lymph # (Auto) [place] # (Auto) Eos # (Auto) Baso # (Auto) Abs Immat Gran (auto) Absolute Neuts (auto) Absolute Nucleated RBC Nucleated RBC % (auto) Smear Tech's Comments Estim Creat Clear Calc Estimated GFR POC Glucose 134 H Random Vancomycin Microbiology Microbiology Results: Microbiology 02/11/22 16:47 Blood Culture - Final Blood - Venous No growth after 5 days. 02/11/22 16:47 Blood Culture - Final Blood - Venous No growth after 5 days. Assessment and Plan (1) AMY (acute kidney injury): Status: Acute (2) Osteomyelitis: Status: Acute Plan 51yo F with HTN, HLD, DM, DM neuropathy + arthropathy, CHF, DFU with chronic osteo, PAD, hx VRE infection, hx L TMTA, hx R 4th + 5th toe amputations presented with purulent discharge from R foot ulcer : osteomyelitis. Osteomyelitis/cellulitis . continues to have low-grade fever, persistently elevated white count but trending down continue Meropenem since /Vancomycin since discussed with ID, does not need long-term IV antibiotics upon discharge as osteo is chronic, would treat as cellulitis with levaquin ultimately will likely need BKA PVD ASA, atorvastatin vascular surgery consulted, no operative intervention warranted at this point, adequate perfusion per prior arterial testing outpatient vascular follow-up AMY creatinine 1.59 d/c NSAIDs s/p gentle IVF x 500 cc follow renal function iron deficiency anemia continue iron supplementation H/H stable HTN continue home Norvasc DM2 continue Lantus, sliding scale DISPO Plan for dc tomorrow if no fever attending-Dr. Vela VTE ppx: LMWH Patient requires continued hospitalization for IVABTX for foot wound Quality Stroke Does the patient have a stroke diagnosis?: No VTE Prior VTE?: No VTE Risk Level:: Medical - moderate - high VTE Device Contraindication: Treatment Not Indicated VTE Drug Contraindication: N/A - Med Ordered
[2022-02-17 11:26] VITALS: BP 140/63; PULSE 87; RESP 18; TEMP 37.3; O2SAT 91
[2022-02-17 11:38] LABS: Glucose, Whole Blood 156 mg/dL (60-115)
[2022-02-17] MEDS: Insulin Lispro 100 UNIT/ML 3 ML VIAL SUBCUT ×3 (11:46→20:40)
[2022-02-17] MEDS: Enoxaparin Sodium 40 MG/0.4 ML SYRINGE SUBCUT (11:46)
[2022-02-17] MEDS: Sodium Chloride 0.65 % Nasal 44 ML SPRBTL 1 SPRAY NOSTRIL-B (13:12)
[2022-02-17] MEDS: 0.9 % Sodium Chloride Flush 10 ML SYRINGE 5 ML IVFLUSH (15:37)
[2022-02-17 16:03] VITALS: BP 135/65; PULSE 86; RESP 16; TEMP 36.5; O2SAT 91
[2022-02-17 16:26] LABS: Glucose, Whole Blood 156 mg/dL (60-115)
[2022-02-17 19:50] VITALS: BP 131/61; PULSE 82; RESP 19; TEMP 36.6; O2SAT 99
[2022-02-17 19:56] LABS: Vancomycin Random 12.2 mcg/mL (15-20)
[2022-02-17 20:11] LABS: Glucose, Whole Blood 198 mg/dL (60-115)
--- NOTE | 2022-02-17 20:21 | HE.PHANOTE ---
RE VANCO SCR DROPPING TO 1.54 TODAY. WILL INCREASE DOSE TO 1G Q24H. NEXT TROUGH IS 02/19. CONSIDER RE-EVALUATING WITH SCR TOMORROW DEIDRE
[2022-02-17] MEDS: vancomycin HCL 1,000 MG in 0.9 % Sodium Chloride 250 ML 270 MG IV (20:41)
[2022-02-17] MEDS: Insulin Glargine,Hum.rec.anlog 100 UNIT/ML 10 ML VIAL 50 UNIT SUBCUT (20:41)
[2022-02-17 23:35] VITALS: BP 165/77; PULSE 83; RESP 18; TEMP 36.6; O2SAT 92
[2022-02-18] MEDS: 0.9 % Sodium Chloride Flush 3 ML SYRINGE IVFLUSH (02:28)
[2022-02-18] MEDS: HYDROmorphone HCl 0.5 MG/0.5 ML SYRINGE IVPUSH ×2 (02:31→06:23)
[2022-02-18 03:32] VITALS: BP 166/77; PULSE 86; RESP 18; TEMP 36.5; O2SAT 93
[2022-02-18 06:34] LABS: Creatinine Clr Calc Pharmacy 56.5; Estimated Glomerular Filt Rate 46
[2022-02-18 07:36] LABS: Glucose, Whole Blood 80 mg/dL (60-115)
--- NOTE | 2022-02-18 07:48 | HE.PHANOTE ---
Vancomycin Dosing Addendum Continue with current regimen of 1000 mg q24h. creatinine 1.24 today ( yesterday 1.54). Predicted auc of 462. Next trough due 02/19/22 @1900.
[2022-02-18 08:07] VITALS: BP 134/57; PULSE 82; RESP 18; TEMP 36.6; O2SAT 100
[2022-02-18] MEDS: amLODIPine Besylate 10 MG TABLET PO (09:07)
[2022-02-18] MEDS: 0.9 % Sodium Chloride Flush 10 ML SYRINGE 5 ML IVFLUSH (09:07)
[2022-02-18] MEDS: Cyanocobalamin (Vitamin B-12) 1,000 MCG TABLET 1000 MCG PO (09:08)
[2022-02-18] MEDS: Gabapentin 300 MG CAPSULE PO (09:08)
[2022-02-18] MEDS: Atorvastatin Calcium 80 MG TABLET PO (09:08)
[2022-02-18] MEDS: Aspirin 81 MG TAB.CHEW PO (09:08)
[2022-02-18] MEDS: Ferrous Sulfate 324 MG TABLET.DR PO (09:08)
--- NOTE | 2022-02-18 10:27 | PM.DS ---
DS: Providers Provider Date of Service: 02/18/22 Date of admission: 02/05/22 21:32 Primary care physician: Farhana Ellison MD Consults: 02/05/22 21:40 Consult to General Surgery Routine Consulting Provider: Christo Feng Reason for consultation: osteomyelitis r foot Consult to Infectious Diseases Routine Consulting Provider: Reanna Graves Reason for consultation: osteomyelitis r foot 02/06/22 13:09 Consult to Infectious Diseases Routine Consulting Provider: Reanna Graves Reason for consultation: osteomyelitis 02/08/22 08:23 Consult to Vascular Surgery Routine Consulting Provider: John Peguero Reason for consultation: steomyelitis on the remaining metatarsal. Attending physician on discharge: Pal Bernard Discharging clinician: Savana Pablo DS: Diagnosis Discharge Diagnosis (1) AMY (acute kidney injury): Status: Acute (2) Osteomyelitis: Status: Acute DS: Summary Hospital Course Hospital Course: History physical as per admitting provider 51-year-old female with past medical history of insulin-dependent type 2 diabetes, history of left transmetatarsal amputation secondary to osteomyelitis, CHF, chronic osteomyelitis, HTN, neuropathy, P AD, history of VRE, presents to the hospital with complaints of right foot infection. Pt has chronic nonhealing wounds of the right foot and is s/p amputation of the 4th & 5th toes and distal aspect 5th metatarsal due to osteomyelitis during recent admission 11/2021. Has followed outpatient with Dr. Graves and completed 6 weeks ertapenem and was recently switched to p.o. doxycycline and linezolid.? She has also been following [facility] seeing Dr. Wang and has [facility] services noting increased purulent drainage and foul odor from her wounds.? On arrival to the ED, patient found to be borderline tachycardic at 99, vital signs otherwise stable.? White blood cell count 18.2, ESR 96, CRP 11.43.? Initial lactic acid 2.4, improved to 1.7 after 2 hours.? Creatinine 1.31, BUN 16 (baseline 0.88, 16 respectively).? X-ray of the foot showing irregularity in the distal aspects of the 4th and 5th metatarsals, osteomyelitis cannot be excluded.? Patient treated with 500 mL IV NS and oxycodone . Osteomyelitis/cellulitis.? had persistent low-grade fevers but now resolved Treated with meropenem and vancomycin discussed with ID, does not need long-term IV antibiotics upon discharge as osteo is chronic, would treat as cellulitis with levaquin for 7 days ultimately will likely need BKA PVD ASA, atorvastatin vascular surgery consulted, no operative intervention warranted at this point, adequate perfusion per prior arterial testing outpatient vascular follow-up AMY. Resolved creatinine 1.24 NSAIDs continued s/p gentle IVF x 500 cc iron deficiency anemia continue iron supplementation H/H stable HTN continue home Norvasc DM2 continue medications Time Spent with Patient Time attestation: Total time spent providing and/or coordinating discharge services: Discharge coordination time: Greater than 30 minutes Quality: Safe Use of Opioids Does Pt have an Active Cancer Diagnosis on the Problem List?: No Quality: Stroke Does the patient have a stroke diagnosis?: No Physical Exam Vital Signs: Vital Signs: Last Vital Signs Temp 97.8 F 02/18/22 08:07 Pulse 82 02/18/22 08:07 Resp 18 02/18/22 08:07 BP 134/57 L 02/18/22 08:07 Pulse Ox 100 02/18/22 08:07 O2 Del Method 02/18/22 08:07 O2 Flow Rate 3.0 02/18/22 08:07 BMI result Body Mass Index 36.2 Appearing in no acute distress head is normocephalic atraumatic eyes pupils are PERRLA sclera is anicteric mouth throat mucous membranes are intact and moist neck is supple no lymphadenopathy, no JVD noted lung sounds are clear to auscultation heart regular rate rhythm, clear S1, S2 positive bowel sounds, abdomen is soft, nontender neuro patient is alert x3, no focal deficits nonhealing lateral and the plantar surface wounds to the right foot DS: Data Data Completed and Pending Completed studies during hospitalization [Text1]: Procedures Detachment at Right 4th Toe, Complete, Open Approach (11/29/21) Excision of Right Foot Skin, External Approach (11/29/21) Fluoroscopy of Aorta and Bilateral Lower Extremity Arteries (02/11/21) Insertion of Infusion Device into Superior Vena Cava, Percutaneous Approach (11/29/21) Ultrasonography of Superior Vena Cava, Guidance (11/29/21) Labs on day of discharge: Laboratory Results - last 24 hr 02/17/22 02/17/22 02/17/22 11:19 16:05 19:15 Creatinine Estim Creat Clear Calc Estimated GFR POC Glucose 156 H 156 H Random Vancomycin 12.2 L 02/17/22 02/18/22 02/18/22 19:53 05:10 07:27 Creatinine 1.24 Estim Creat Clear Calc 56.5 Estimated GFR 46 POC Glucose 198 H 80 Random Vancomycin Discharge Plan Discharge Anticipated Discharge Date/Time: 02/18/22 10:20 Patient Disposition: Home Health Service Discharge Diagnosis: osteomyelitis Cellulitis AMY Referrals: Farhana Ellison MD [Primary Care Provider] - 1 Week John Peguero MD [Physician] - 1 Week Discharge Medications: New levofloxacin 500 mg tablet 500 mg PO DAILY Qty: 7 0RF Continued mecobalamin (vitamin B12) 1,000 mcg tablet,disintegrating 1,000 mcg sublingual DAILY Qty: 30 2RF Rx Instructions: place tablet under tongue and allow to dissolve for at least30 secs before swallowing insulin aspart U-100 [Novolog U-100 Insulin aspart] 100 unit/mL solution 25 unit subcut TIDAC gabapentin 300 mg capsule 1 cap PO TID amlodipine 10 mg tablet 1 tab PO DAILY aspirin 81 mg Tablet,Chewable 81 mg PO DAILY Trulicity 0.75 mg/0.5 mL Pen Injector 0.75 mg SUBCUT TU@1000 naproxen 500 mg Tablet 500 mg PO BID PRN (Reason: Headache) urea 20 % cream 1 appl topical DAILY insulin glargine [Lantus U-100 Insulin] 100 unit/mL solution 90 unit subcut BEDTIME atorvastatin 80 mg Tablet 80 mg PO DAILY (DME) blood-glucose meter [FreeStyle [place] Lite] Kit See Rx Instructions .ROUTE TID Qty: 1 Rx Instructions: As directed Discontinued doxycycline hyclate 100 mg tablet 100 mg PO BID 30 Days Qty: 60 1RF Discharge Orders: Discharge Order (Routine); Ordered 02/18/22 Ordered By: Savana Pablo Diet: Advance to usual diet Activity on Discharge: As tolerated Stand Alone Forms: Patient Portal Discharge page Care Plan Goals: May use Xeroform dressing Health Concerns: osteomyelitis Cellulitis AMY Plan of Treatment: Follow up with Wound care center Follow up with Vascular surgery Take all medications as prescribed, continue Levaquin for 7 days Assessment: See discharge summary
[2022-02-18 11:07] VITALS: BP 120/56; PULSE 75; RESP 17; TEMP 37.5; O2SAT 98
[2022-02-18 11:21] LABS: Glucose, Whole Blood 116 mg/dL (60-115)
[2022-02-18] MEDS: Acetaminophen 325 MG TABLET 650 MG PO (11:48)
--- NOTE | 2022-02-18 12:07 | HO.VASCPN ---
Subjective Subjective Date of Service: 02/18/22 Patient reports: no new complaints and feels better Interval history: Patient seen and examined. Events over the past weekend noted. Appears to be doing somewhat better. No fever events over the past 24 hours. In better spirits. Physical Exam Vital Signs: Vital Signs: Last Vital Signs Temp 99.5 F 02/18/22 11:07 Pulse 75 02/18/22 11:07 Resp 17 02/18/22 11:07 BP 120/56 L 02/18/22 11:07 Pulse Ox 98 02/18/22 11:07 O2 Del Method 02/18/22 11:07 O2 Flow Rate 3.0 02/18/22 11:07 BMI result Body Mass Index 36.2 Const: General: cooperative, healthy appearing and no acute distress Orientation/consciousness: oriented to person, oriented to place and oriented to time HEENT: Head: Yes normal to inspection Neck: Carotids: no bruits Chest: Chest palpation & inspection: normal inspection of the chest Resp: Effort & Inspection: normal respiratory effort and able to speak in complete sentences Auscultation: clear to auscultation bilaterally Cardio: Rate: regular rate Heart sounds: S1 normal heart sound present and S2 normal heart sound present GI: Inspection: Yes normal to inspection Skin: Other: Right foot lateral wound nonhealing medial aspect new ulcerations. General skin exam: no rashes or lesions noted Wounds: no wounds Neuro: General: oriented to person, oriented to place, oriented to time and CN's II-XI intact bilaterally Extrem: General: Yes normal to inspection, Yes full ROM and Yes no clubbing, cyanosis or edema Psych: Appearance: grossly normal and well kempt Speech and movement: Normal speech and movement present Affect: normal affect Progress Note: A&P Assessment and plan (1) Osteomyelitis: Status: Acute Assessment and Plan: In short patient has nonhealing ulcers of the right lower extremity. Would continue with antibiotics. She has had a significant trial. Should it not heal she may require below-knee amputation. There is no tissue on the plantar aspect heel that amp. Will plan for conservative management for now. Upon discharge she can see us as an outpatient. Thank you for allowing us to assist in her care. If there are any questions or concerns please do not hesitate to contact us. Time Spent With Patient Time: Total time spent is greater than 50% in coordination of care (as documented) at patient's floor/unit and/or counseling patient: Procedures Date of Service Date of Service: 02/18/22 Quality Stroke Does the patient have a stroke diagnosis?: No VTE Prior VTE?: No VTE Risk Level:: Medical - moderate - high VTE Device Contraindication: Treatment Not Indicated VTE Drug Contraindication: N/A - Med Ordered
--- NOTE | 2022-02-18 12:23 | MHC.CM.PN ---
PT WILL DC HOME TODAY WITH [facility] FOR WOUND CARE PT WILL BE SENT WITH DRESSING SUPPLIES AND [facility] WILL PROVIDE SOC ON FRIDAY FAM[facility] WILL TRANSPORT
--- NOTE | 2022-02-20 09:50 | P.CDIR_ITS ---
Documented by User: Edith Harrison CCS, CDIS 02/20/22 09:56 Retrospective Query PHYSICIAN'S DOCUMENTATION REQUEST Date of Query: 02/20/22 0950 Patient Name: Staci Shirley Admit Date: 02/05/22 Dear Doctor, A review of the medical record indicates additional documentation may be needed. Please review below and update the documentation accordingly. Clinical Indicators: Risk Factors/Clinical Indicators/Treatments H&P 02/05 - Severe sepsis 2nd to osteomyelitis. WBC 18.2 LA2.4 Temp 100.9 tachcardia 500 L IVF. Progress note 02/06 & 02/09 - Severe sepsis 2nd to right sided diabetic foot ulcer/osteomyelitis. IV ertapenem previous PICC for chronic nonhealing wounds right foot. Please clarify based on the above if: Sepsis * [ ] was present on admission * [ ] was not present on admission * Unable to determine Use of terms such as suspected, likely, concern for, or probable (associated with a specific diagnosis that is being evaluated, monitored, or treated as if it exists) are acceptable and can be coded in the inpatient setting, when documented at the time of discharge. Thank you, Edith Harrison CCS, CDIS Extension: [phone] Please use your independent medical judgment in providing your response. THIS QUERY IS PART OF THE PERMANENT MEDICAL RECORD Documented by User: Savana Pablo NP 02/20/22 14:40 Retrospective Query Provider Response: Other
== END 2022-02-18 13:44 | disposition home health service (06) | DRG 720 ==
LOC: HO.ED 20:08 → HO.EDOVER 21:50 → HO.S3 02-07 18:34
PROVIDERS: Emergency Medicine; Family Medicine; Hospitalist; Physician Assistant Medical; Admitting Provider Physician Assistant; Emergency Provider Emergency Medicine; PCP Internal Medicine; Visit Provider Nurse Practitioner Acute Care
DX: A41.9 Sepsis, unspecified organism (principal); E11.649 Type 2 diabetes mellitus with hypoglycemia without coma; E11.42 Type 2 diabetes mellitus with diabetic polyneuropathy; N17.9 Acute kidney failure, unspecified; M86.171 Other acute osteomyelitis, right ankle and foot; D50.9 Iron deficiency anemia, unspecified; L03.115 Cellulitis of right lower limb; L97.419 Non-pressure chronic ulcer of right heel and midfoot with unspecified severity; M86.671 Other chronic osteomyelitis, right ankle and foot; D72.829 Elevated white blood cell count, unspecified; E11.51 Type 2 diabetes mellitus with diabetic peripheral angiopathy without gangrene; K29.70 Gastritis, unspecified, without bleeding; E11.621 Type 2 diabetes mellitus with foot ulcer; I11.0 Hypertensive heart disease with heart failure; E11.69 Type 2 diabetes mellitus with other specified complication; R65.20 Severe sepsis without septic shock; I50.32 Chronic diastolic (congestive) heart failure; Z20.822 Contact with and (suspected) exposure to COVID-19; Z79.4 Long term (current) use of insulin; Z98.1 Arthrodesis status; Z79.82 Long term (current) use of aspirin; Z79.899 Other long term (current) drug therapy
CPT/HCPCS: 36415; 36573; 73620; 73720; 80048; 80076; 80202; 81001; 81025; 82565; 82607; 82728; 82746; 82947; 83540; 83605; 83615; 83690; 85025; 85027; 85045; 85652; 86140; 87040; 87635; 99285; A9585; C1751; J1170; J1335; J1650; J2185; J2405; J3370

== ENCOUNTER 2022-02-26 11:31 | Inpatient (IN) | payer OTHER, SELFPAY ==
[2022-02-26 11:42] VITALS: BP 112/72; PULSE 74; O2SAT 96
[2022-02-26 11:43] VITALS: BP 119/64; PULSE 74; RESP 16; TEMP 36.4; O2SAT 97; BMI 36.2
[2022-02-26 12:10] LABS: Basophils Absolute Auto 0.2 X10*3/uL (0.0-0.2); Basophils Percent Auto 0.8 % (0-2); Eosinophils Absolute Auto 0.8 X10*3/uL (0.0-0.4); Eosinophils Percent Auto 3.9 % (0-4); Hematocrit 28.3 % (37.0-47.0); Hemoglobin 8.8 g/dl (12.0-16.0); Imm Gran Abs Auto 0.09 X10*3/uL (0.00-0.03); Imm Gran Pct Auto 0.5 % (0.0-0.4); Lymphocytes Absolute Auto 3.8 X10*3/uL (1.2-4.9); Lymphocytes Percent Auto 19.6 % (20-40); MANUAL DIFF FLAG SCAN; Mean Corpuscular HGB Conc 31.1 g/dl (31.0-35.0); Mean Corpuscular Hemoglobin 25.2 pg (27.0-33.0); Mean Corpuscular Volume 81.1 fL (80.0-98.0); Mean Platelet Volume 9.1 fL (9.4-12.3); Monocytes Absolute Auto 1.5 X10*3/uL (0.1-1.2); Neutrophils Percent Auto 67.2 % (45-73); Platelet Count 711 X10*3/uL (160-400); Red Blood Count 3.49 X10*6/uL (4.20-5.50); Red Cell Distribution Width 13.8 % (11.0-16.0); SCAN SMEAR FLAG 1
[2022-02-26 12:12] LABS: White Blood Count 19.3 X10*3/uL (4.8-10.8)
[2022-02-26 12:36] LABS: Anion Gap 19 (12-20); Blood Urea Nitrogen 16 mg/dL (9-16); Calcium 8.7 mg/dL (8.4-10.2); Carbon Dioxide 22 mmol/L (22-29); Chloride 103 mmol/L (96-108); Estimated Glomerular Filt Rate 32; Glucose Random 120 mg/dL (60-115); Sodium 140 mmol/L (135-145)
[2022-02-26 12:51] LABS: SLIDE REVIEW VERIFIED
[2022-02-26 22:33] VITALS: BP 155/73; PULSE 73; RESP 18; O2SAT 100
--- NOTE | 2022-02-26 22:35 | ED_ITS ---
HPI - Extremity Problem General Chief complaint: Skin/Abscess/Foreign Body Stated complaint: R FOOT PAIN/WOUND, HX DM PER EMS Time Seen by Provider: 02/26/22 22:31 Source: patient Mode of arrival: ambulatory Limitations: no limitations History of Present Illness HPI Narrative: Patient 51 years old with significant past medical history of insulin-dependent type 2 diabetes, CHF, hypertension, peripheral neuropathy, peripheral arterial disease, osteomyelitis status post left transmetatarsal amputation in 12/10 with chronic nonhealing wound of the right foot just discharged on 12/19/2021 on p.o. Levaquin till yesterday. Patient had a nonhealing wound on the lateral aspect of right foot since patient was discharged noticed a small blister on the medial aspect which got worse with a purulent discharge and black eschar which was not there during admission no fever no chills Related Data Home Medications Medication Instructions Recorded Confirmed amlodipine 10 mg tablet 1 tab PO DAILY 03/19/20 02/05/22 gabapentin 300 mg capsule 1 cap PO TID 03/19/20 02/05/22 insulin aspart U-100 100 unit/mL 25 unit subcut TIDAC 03/19/20 02/05/22 subcutaneous solution (Novolog U-100 Insulin aspart) aspirin 81 mg chewable tablet 81 mg PO DAILY 06/17/21 02/05/22 blood-glucose meter (FreeStyle #1 ea 07/03/21 [place] Lite kit) insulin glargine 100 unit/mL 90 unit subcut BEDTIME 09/13/21 02/05/22 subcutaneous solution (Lantus U-100 Insulin) atorvastatin 80 mg tablet 80 mg PO DAILY 11/29/21 02/05/22 dulaglutide 0.75 mg/0.5 mL 0.75 mg subcut TU@1000 02/05/22 02/05/22 subcutaneous pen injector (Trulicity) naproxen 500 mg tablet 500 mg PO BID PRN Headache 02/05/22 02/05/22 urea 20 % topical cream 1 appl topical DAILY 02/05/22 02/05/22 Previous Rx's Medication Instructions Recorded mecobalamin (vitamin B12) 1,000 1,000 mcg sublingual DAILY #30 tabs 10/30/20 mcg disintegrating tablet,sublingual levofloxacin 500 mg tablet 500 mg PO DAILY #7 tabs 02/18/22 Allergies Allergy/AdvReac Type Severity Reaction Status Date / Time No Known Allergies Allergy Verified 01/18/22 11:19 [No Known Allergies*] Review of Systems Review of Systems: Yes all other systems are reviewed and are negative [facility] Past Medical History Medical History Abscess Amputated toe of left foot Amputation of left foot BMI 39.0-39.9,adult Chronic heart failure with preserved ejection fraction (HFpEF) Chronic osteomyelitis of foot Diabetes Diabetic foot infection Diabetic foot ulcer with osteomyelitis Hyperlipidemia Hypertension Insulin dependent diabetes mellitus Neuropathy Obesity Osteomyelitis Osteomyelitis PAD (peripheral artery disease) Type 2 diabetes mellitus with unspecified complications Vitamin B12 deficiency VRE (vancomycin resistant enterococcus) culture positive Surgical History H/O spinal fusion History of amputation of left foot History of section History of tubal ligation Status post amputation of toe of right foot Family History Family History Mother Diabetes Hypertension Disk prolapse Father Diabetes Hypertension Sister No problems noted. Brother No problems noted. Daughter No problems noted. Son No problems noted. Social History Social History Household Members: Significant Other Household Members Other:: Housing: Apartment Do you presently have visiting nurse or other home services: Yes Alcohol intake: never Patient Tobacco Use Status: Never used Tobacco e-Cigarette/Vaping Use: Never Used Second Hand Smoke Exposure: No Advance Directives: Yes Advance Directives on File: Yes Advance Directives Date on File: 02/15/21 service: No Current occupational status: unemployed Physical Exam Vital Signs: Vital Signs: Last Vital Signs Temp 98.6 F 02/26/22 23:39 Pulse 73 02/26/22 23:39 Resp 18 02/26/22 23:39 BP 162/79 H 02/26/22 23:39 Pulse Ox 99 02/26/22 23:39 O2 Del Method 02/26/22 23:39 BMI result Body Mass Index 36.2 Appearance: Alert. Oriented X3. No acute distress. Eyes: No pallor icterus ENT: Pharynx normal. Oral Mucosa moist Neck: Normal inspection. Neck supple. CVS: Normal heart rate and rhythm. Pulses normal. Respiratory: No respiratory distress. Equal air entry bilateral, no wheezing/rales/rhonchi Abdomen: Soft and nontender. Bowel sounds are present, no mass palpable, no CVA tenderness Skin: Skin warm and dry. Nonhealing wound right foot Extremities: No lower extremity edema. No calf tenderness see the picture attached Neuro: Oriented X 3. No motor deficit. Decreased sensory to light touch and pinprick in lower extremity,.No cerebellar signs , cranial nerves II-XII intact Extrem: Other: MDM - Extremity (Nontraumatic) MDM Narrative Medical decision making narrative: [id number] clinically with obvious deeper infection with fluctuance , with purulent discharge at the bottom of right foot MRI done on 02/06 positive for osteomyelitis failed outpatient antibiotic with chronic leukocytosis will admit patient for IV antibiotic and amputation Lab Data Attestation: I reviewed the patient's lab results. Result diagrams: 02/26/22 11:58 02/26/22 11:58 Labs: Lab Results 02/26/22 02/26/22 02/26/22 Range/Units 11:58 11:58 22:32 WBC 19.3 H (4.8-10.8) X10*3/uL RBC 3.49 L (4.20-5.50) X10*6/uL Hgb 8.8 L (12.0-16.0) g/dl Hct 28.3 L (37.0-47.0) % MCV 81.1 (80.0-98.0) fL MCH 25.2 L (27.0-33.0) pg MCHC 31.1 (31.0-35.0) g/dl RDW 13.8 (11.0-16.0) % Plt Count 711 H (160-400) X10*3/uL MPV 9.1 L (9.4-12.3) fL Immature Gran % (Auto) 0.5 H (0.0-0.4) % Neut % (Auto) 67.2 (45-73) % Lymph % (Auto) 19.6 L (20-40) % Hardy % (Auto) 8.0 (2-11) % Eos % (Auto) 3.9 (0-4) % Baso % (Auto) 0.8 (0-2) % Lymph # (Auto) 3.8 (1.2-4.9) X10*3/uL Hardy # (Auto) 1.5 H (0.1-1.2) X10*3/uL Eos # (Auto) 0.8 H (0.0-0.4) X10*3/uL Baso # (Auto) 0.2 (0.0-0.2) X10*3/uL Abs Immat Gran (auto) 0.09 H (0.00-0.03) X10*3/uL Absolute Neuts (auto) 13.0 H (2.0-8.3) x10*3/uL Absolute Nucleated RBC 0.000 (0.0-0.012) X10*3/uL Nucleated RBC % (auto) 0.0 (0.0-0.2) /100WBC Smear Tech's Comments VERIFIED Sodium 140 (135-145) mmol/L Potassium 4.0 (3.3-5.1) mmol/L Chloride 103 (96-108) mmol/L Carbon Dioxide 22 (22-29) mmol/L Anion Gap 19 (12-20) BUN 16 (9-16) mg/dL Creatinine 1.71 H (0.5-1.4) mg/dL Estim Creat Clear Calc 41.0 Estimated GFR 32 POC Glucose 279 H (60-115) mg/dL Random Glucose 120 H (60-115) mg/dL Lactic Acid (0.5-2.0) mmol/L Calcium 8.7 D (8.4-10.2) mg/dL COVID-19 (CHATA) (Negative) COVID-19 Clin Com 02/26/22 02/26/22 Range/Units 23:37 23:37 WBC (4.8-10.8) X10*3/uL RBC (4.20-5.50) X10*6/uL Hgb (12.0-16.0) g/dl Hct (37.0-47.0) % MCV (80.0-98.0) fL MCH (27.0-33.0) pg MCHC (31.0-35.0) g/dl RDW (11.0-16.0) % Plt Count (160-400) X10*3/uL MPV (9.4-12.3) fL Immature Gran % (Auto) (0.0-0.4) % Neut % (Auto) (45-73) % Lymph % (Auto) (20-40) % Hardy % (Auto) (2-11) % Eos % (Auto) (0-4) % Baso % (Auto) (0-2) % Lymph # (Auto) (1.2-4.9) X10*3/uL Hardy # (Auto) (0.1-1.2) X10*3/uL Eos # (Auto) (0.0-0.4) X10*3/uL Baso # (Auto) (0.0-0.2) X10*3/uL Abs Immat Gran (auto) (0.00-0.03) X10*3/uL Absolute Neuts (auto) (2.0-8.3) x10*3/uL Absolute Nucleated RBC (0.0-0.012) X10*3/uL Nucleated RBC % (auto) (0.0-0.2) /100WBC Smear Tech's Comments Sodium (135-145) mmol/L Potassium (3.3-5.1) mmol/L Chloride (96-108) mmol/L Carbon Dioxide (22-29) mmol/L Anion Gap (12-20) BUN (9-16) mg/dL Creatinine (0.5-1.4) mg/dL Estim Creat Clear Calc Estimated GFR POC Glucose (60-115) mg/dL Random Glucose (60-115) mg/dL Lactic Acid 1.1 (0.5-2.0) mmol/L Calcium (8.4-10.2) mg/dL COVID-19 (CHATA) Negative (Negative) COVID-19 Clin Com See Note Discharge Plan Discharge Clinical Impression: Chronic osteomyelitis of right foot Patient Disposition: Admitted As Inpatient
[2022-02-26 22:38] LABS: Glucose, Whole Blood 279 mg/dL (60-115)
[2022-02-26 23:39] VITALS: BP 162/79; PULSE 73; RESP 18; TEMP 37; O2SAT 99
--- NOTE | 2022-02-26 23:39 | PC.NURSE ---
blood culture attempt x 2 @2300 by this RN. second person attempt @2330. lactic obtained but unable to obtain blood cultures at this time. still trying for iv line. aware
[2022-02-26 23:57] LABS: COVID-19 Test Negative (Negative); IDNOW Serial# 55D5AD1C
[2022-02-27] VITALS (7 sets, daily range): BP systolic 136–158; BP diastolic 61–71; PULSE 67–81; RESP 14–24; TEMP 36–36.8; O2SAT 93–99
[2022-02-27 00:02] LABS: Lactic Acid 1.1 mmol/L (0.5-2.0)
--- NOTE | 2022-02-27 00:08 | P.HPHOSP_ITS ---
History of Present Illness Date of Service: 02/27/22 Chief Complaint: Infected wound This is a 51-year-old female with pertinent history of insulin-dependent diabetes mellitus with neuropathy, essential hypertension, peripheral vascular disease with history of left transmetatarsal amputation and chronic osteomyeli tis of the right foot who was sent to the emergency department by Wound Care for evaluation of right foot wounds. Patient was recently admitted with infected nonhealing right foot wound and cellulitis and discharged on 02/18 with p.o. Levaquin after her wounds improved with IV antibiotics. Patient states she completed her Levaquin course but developed blisters and new wound to the medial aspect of her right foot which has been draining foul-smelling purulent discharge. Wound Care saw the patient at home and sent her to the ER for further evaluation. She endorses right foot pain. Patient denies fever, chills, nausea, vomiting, chest discomfort, palpitations, shortness of breath, abdominal pain, changes in urinary or bowel habits. Review of Systems Constitutional: Constitutional: Reports no additional constitutional complaints Cardiovascular: Cardiovascular: Reports no additional cardiovascular complaints Respiratory: Respiratory: Reports no additional respiratory complaints Gastrointestinal: Gastrointestinal: Reports no additional gastrointestinal complaints Genitourinary: Genitourinary: Reports no additional female genitourinary complaints Musculoskeletal: Musculoskeletal: Reports arthralgias and Reports joint swelling [facility] Medical History (Updated 02/27/22 @ 00:20 by Renita Bianchi MD) Abscess Amputated toe of left foot Amputation of left foot BMI 39.0-39.9,adult Chronic heart failure with preserved ejection fraction (HFpEF) Chronic osteomyelitis of foot Diabetes Diabetic foot infection Diabetic foot ulcer with osteomyelitis Hyperlipidemia Hypertension Insulin dependent diabetes mellitus Neuropathy Obesity Osteomyelitis Osteomyelitis PAD (peripheral artery disease) Type 2 diabetes mellitus with unspecified complications Vitamin B12 deficiency VRE (vancomycin resistant enterococcus) culture positive Family History Mother Diabetes Hypertension Disk prolapse Father Diabetes Hypertension Sister No problems noted. Brother No problems noted. Daughter No problems noted. Son No problems noted. Surgical History H/O spinal fusion History of amputation of left foot History of section History of tubal ligation Status post amputation of toe of right foot Social History Household Members: Significant Other Household Members Other:: Housing: Apartment Do you presently have visiting nurse or other home services: Yes Alcohol intake: never Patient Tobacco Use Status: Never used Tobacco e-Cigarette/Vaping Use: Never Used Second Hand Smoke Exposure: No Advance Directives: Yes Advance Directives on File: Yes Advance Directives Date on File: 02/15/21 service: No Current occupational status: unemployed Meds Allergies Allergy/AdvReac Type Severity Reaction Status Date / Time No Known Allergies Allergy Verified 01/18/22 11:19 [No Known Allergies*] Active Medications: Current Medications Acetaminophen (Acetaminophen 325 Mg Tablet) 650 mg PO Q6H PRN PRN Reason: Pain, Mild (Pain Scale 1-3) Sodium Chloride (Ns) 1,000 mls @ 999 mls/hr IV .Q1H1M ONE Stop: 02/27/22 00:20 Melatonin (Melatonin 3 Mg Tablet) 6 mg PO BEDTIME PRN PRN Reason: Insomnia Ondansetron HCl (Ondansetron Hcl 4 Mg/2 Ml Vial) 4 mg IVPUSH Q8H PRN PRN Reason: Nausea and Vomiting Pharmacy Consult (Consult Rx Vancomycin Dosing) 1 each MISCELLANE DAILY PRN PRN Reason: Consult order Sodium Chloride (0.9 % Sodium Chloride Flush 3 Ml Syringe) 3 ml IVFLUSH [facility] Medications Medication Instructions Recorded Confirmed Last Taken Type amlodipine 10 mg tablet 1 tab PO DAILY 03/19/20 02/05/22 02/05/22 History gabapentin 300 mg capsule 1 cap PO TID 03/19/20 02/05/22 11/28/21 History insulin aspart U-100 100 unit/mL 25 unit subcut TIDAC 03/19/20 02/05/22 11/29/21 History subcutaneous solution (Novolog U-100 Insulin aspart) aspirin 81 mg chewable tablet 81 mg PO DAILY 06/17/21 02/05/22 11/28/21 History blood-glucose meter (FreeStyle #1 ea 07/03/21 11/28/21 History [place] Lite kit) insulin glargine 100 unit/mL 90 unit subcut BEDTIME 09/13/21 02/05/22 11/28/21 History subcutaneous solution (Lantus U-100 Insulin) atorvastatin 80 mg tablet 80 mg PO DAILY 11/29/21 02/05/22 11/28/21 History dulaglutide 0.75 mg/0.5 mL 0.75 mg subcut TU@1000 02/05/22 02/05/22 02/05/22 History subcutaneous pen injector (Trulicity) naproxen 500 mg tablet 500 mg PO BID PRN Headache 02/05/22 02/05/22 Unknown History urea 20 % topical cream 1 appl topical DAILY 02/05/22 02/05/22 Unknown History Physical Exam Vital Signs and Narrative: Vital Signs: Last Vital Signs Temp 98.6 F 02/26/22 23:39 Pulse 73 02/26/22 23:39 Resp 18 02/26/22 23:39 BP 162/79 H 02/26/22 23:39 Pulse Ox 99 02/26/22 23:39 O2 Del Method 02/26/22 23:39 BMI result Body Mass Index 36.2 Middle-aged female lying in bed in no distress Neck supple, no JVD Regular rate and rhythm, S1-S2 heard Regular breath sounds bilaterally, no wheezing or crackles appreciated Abdomen soft nontender, no guarding, no rigidity Patient is awake, alert and oriented to self, place, time and person ; no focal motor deficit MSK: left foot amputation ; Right foot wounds with serosanguineous purulent drainage, erythema, warmth (images attached as below) Psych: Normal mood Extrem: Other: Results Labs CBC and Chem 7: 02/26/22 11:58 02/26/22 11:58 Labs: Laboratory Results - last 24 hr 02/26/22 02/26/22 02/26/22 11:58 11:58 22:32 MCV 81.1 MCH 25.2 L MCHC 31.1 RDW 13.8 Plt Count 711 H MPV 9.1 L Immature Gran % (Auto) 0.5 H Neut % (Auto) 67.2 Lymph % (Auto) 19.[address] [place] % (Auto) 8.0 Eos % (Auto) 3.9 Baso % (Auto) 0.8 Lymph # (Auto) 3.8 [place] # (Auto) 1.5 H Eos # (Auto) 0.8 H Baso # (Auto) 0.2 Abs Immat Gran (auto) 0.09 H Absolute Neuts (auto) 13.0 H Absolute Nucleated RBC 0.000 Nucleated RBC % (auto) 0.0 Smear Tech's Comments VERIFIED Anion Gap 19 Estim Creat Clear Calc 41.0 Estimated GFR 32 POC Glucose 279 H Random Glucose 120 H Lactic Acid Calcium 8.7 D COVID-19 (CHATA) COVID-19 Clin Com 02/26/22 02/26/22 23:37 23:37 MCV MCH MCHC RDW Plt Count MPV Immature Gran % (Auto) Neut % (Auto) Lymph % (Auto) [place] % (Auto) Eos % (Auto) Baso % (Auto) Lymph # (Auto) [place] # (Auto) Eos # (Auto) Baso # (Auto) Abs Immat Gran (auto) Absolute Neuts (auto) Absolute Nucleated RBC Nucleated RBC % (auto) Smear Tech's Comments Anion Gap Estim Creat Clear Calc Estimated GFR POC Glucose Random Glucose Lactic Acid 1.1 Calcium COVID-19 (CHATA) Negative COVID-19 Clin Com See Note Assessment and Plan (1) Diabetic infection of right foot: Status: Acute (2) Chronic osteomyelitis of right foot: Status: Acute (3) Chronic heart failure with preserved ejection fraction (HFpEF): Status: Acute (4) AMY (acute kidney injury): Status: Acute (5) Obesity: Status: Acute (6) Hyperlipidemia: Status: Acute (7) Insulin dependent diabetes mellitus: Status: Acute Plan This is a 51-year-old female with pertinent history of insulin-dependent diabe allie mellitus with neuropathy, essential hypertension, peripheral vascular disease with history of left transmetatarsal amputation and chronic osteomyelitis of the right foot who was sent to the emergency department by Wound Care for evaluation of right foot wounds. #. Diabetic foot infection with infected non-healing wound #. Cellulitis, right foot #. Chronic right foot osteomyelitis -Will admit patient and initiate broad spectrum IV antibiotics. -Consulting vascular surgery for possible BKA. Also consulting Infectious Disease #. Acute kidney injury stage I - prerenal versus ATN due to infection. Monitor urine output and creatinine with fluid resuscitation. Avoid nephrotoxins #. Insulin-dependent diabetes mellitus with hyperglycemia - initiate Accu-Cheks with sliding scale insulin every 6 hours. Reduce home basal regimen #. PAD -on aspirin and high intensity statin #. HTN -hold po home antihypertensives #. CHFpEF -compensated. Not on home lasix, closely monitor with IV fluids Med rec pending DVT prophylaxis: Hold anticoagulation until surgical evaluation NPO until surgical evaluation Full code Admit as inpatient and will require two night minimum hospital stay for IV antibiotics. Surgical evaluation pending. Quality Stroke Does the patient have a stroke diagnosis?: No VTE Prior VTE?: No VTE Risk Level:: Medical - moderate - high VTE Device Contraindication: Treatment Not Indicated VTE Drug Contraindication: Treatment Not Indicated
[2022-02-27] MEDS: 0.9 % Sodium Chloride 1,000 ML 999 ML IV ×2 (00:09→01:30)
[2022-02-27] MEDS: Piperacillin Sodium/Tazobactam 3.375 GM in 0.9 % Sodium Chloride 50 ML IV (00:09)
[2022-02-27] MEDS: ondansetron HCL 4 MG/2 ML VIAL IVPUSH (00:43)
[2022-02-27] MEDS: vancomycin HCL 1,000 MG in 0.9 % Sodium Chloride 250 ML 270 MG IV ×2 (00:47→08:18)
--- NOTE | 2022-02-27 01:00 | PC.NURSE ---
ultra sound guided IV placed by MD Virk. iv fluids running, pt received iv zosyn and now receiving iv vancomycin. zofran given for nausea. pt assisted to and from bathroom. call watson within reach. warm blankets provided.
[2022-02-27 01:08] LABS: Glucose, Whole Blood 257 mg/dL (60-115)
[2022-02-27] MEDS: Insulin Glargine,Hum.rec.anlog 100 UNIT/ML 10 ML VIAL 45 UNIT SUBCUT ×2 (01:22→20:44)
[2022-02-27] MEDS: Morphine Sulfate 2 MG/ML CARTRIDGE IVPUSH ×4 (01:25→20:56)
[2022-02-27] MEDS: Insulin Lispro 100 UNIT/ML 3 ML VIAL SUBCUT ×2 (01:25→20:46)
[2022-02-27 06:54] LABS: MANUAL DIFF FLAG NO
[2022-02-27 06:57] LABS: Basophils Absolute Auto 0.1 X10*3/uL (0.0-0.2); Basophils Percent Auto 0.6 % (0-2); Eosinophils Absolute Auto 0.6 X10*3/uL (0.0-0.4); Eosinophils Percent Auto 3.6 % (0-4); Hematocrit 29.7 % (37.0-47.0); Hemoglobin 8.9 g/dl (12.0-16.0); Imm Gran Abs Auto 0.09 X10*3/uL (0.00-0.03); Imm Gran Pct Auto 0.5 % (0.0-0.4); Lymphocytes Absolute Auto 2.4 X10*3/uL (1.2-4.9); Lymphocytes Percent Auto 13.6 % (20-40); Mean Corpuscular Hemoglobin 24.7 pg (27.0-33.0); Mean Corpuscular Volume 82.5 fL (80.0-98.0); Mean Platelet Volume 9.4 fL (9.4-12.3); Monocytes Absolute Auto 1.5 X10*3/uL (0.1-1.2); Monocytes Percent Auto 8.3 % (2-11); Neutrophils Absolute Auto 12.9 x10*3/uL (2.0-8.3); Neutrophils Percent Auto 73.4 % (45-73); Platelet Count 745 X10*3/uL (160-400); Red Cell Distribution Width 13.9 % (11.0-16.0); White Blood Count 17.6 X10*3/uL (4.8-10.8)
[2022-02-27 07:14] LABS: Anion Gap 17 (12-20); Blood Urea Nitrogen 13 mg/dL (9-16); Calcium 8.5 mg/dL (8.4-10.2); Carbon Dioxide 23 mmol/L (22-29); Chloride 105 mmol/L (96-108); Creatinine Clr Calc Pharmacy 53.5; Estimated Glomerular Filt Rate 43; Glucose Random 156 mg/dL (60-115); Potassium 4.3 mmol/L (3.3-5.1); Sodium 141 mmol/L (135-145)
[2022-02-27] MEDS: 0.9 % Sodium Chloride Flush 3 ML SYRINGE IVFLUSH ×3 (07:19→22:05)
[2022-02-27 07:20] LABS: Glucose, Whole Blood 135 mg/dL (60-115)
--- NOTE | 2022-02-27 07:49 | PHA.PROG ---
Admission Date/Time: February 27, 2022 00:00 Indication: SKIN WITH HISTORY OF OSTEOMYLITIS Weight in k.811 kg Adjusted body weight in K.985 [place] body weight in K.1 Obesity Dosing Indication % IBW: Serum Creatinine - Last 168 Hours 02/26/22 02/27/22 11:58 06:28 Creatinine 1.71 H 1.31 Estimated CrCl and GFR - Last 168 Hours 02/26/22 02/27/22 11:58 06:28 Estim Creat Clear Calc 41.0 53.5 Estimated GFR 32 43 Vancomycin Loading Dose: 1000 MG AT 0047 AND 1000 MG AT 0800 Current Vancomycin Dosing Regimen: 750 MG Q24 Vancomycin Monitoring using AUC goal of 400 - 600 range with trough as surrogate marker:EXPECTED AUC 452 Date and Time for next Vancomycin Level to be drawn: 03/01/22 AT 0600 Pharmacist Comments on Vancomycin Plan: LOADING DOSE GIVEN INITIALLY WAS LOW SO ADDITIONAL 1000 MG GIVEN 7 HOURS LATER. MAINTENENCE DOSE TO START IN 24 HOURS AT 750 MG Q24 ON 02/28 AT 8 AM. PATIENT IS OBESE SO CAREFUL MONITORING IS NEEDED. PHARMACY IS MONITORING RENAL FUNCTION DAILY. Vancomycin dosing will take advantage of [employer] as a clinical decision support tool that uses Bayesian modeling to calculate individual patient's pharmacokinetic parameters and forecast the patient's drug concentration time course with the target goal AUC 24 range of 400 - 600 mg/L/hr.
--- NOTE | 2022-02-27 10:23 | P.EN_ITS ---
Event Note Date of Service: 02/27/22 Event Note: Admitted for right foot wounds, patient was recently discharged from [facility] on February 18 on by mouth Levaquin, patient finished a course of antibiotic but developed blisters and new wound to the medial aspect of right foot with foul smelling purulent drainage therefore referred to emergency room by wound nurse At present patient awake alert denies fever chills, complaining of right foot pain 51-year-old female with pertinent history of insulin-dependent diabetes mellitus with neuropathy, essential hypertension, peripheral vascular disease with history of left transmetatarsal amputation and chronic osteomyelitis of the right foot who was sent to the emergency department by Wound Care for evaluation of right foot wounds. #. Diabetic foot infection with infected non-healing wound with cellulitis and chronic right foot osteomyelitis Will continue IV meropenem and vancomycin Case discussed with Dr. Peguero he recommend BKA, await ID input #. Acute kidney injury likely pre renal renal function improved with IV hydration, continue to follow bmp #.? Insulin-dependent diabetes mellitus with hyperglycemia continue diabetic diet insulin sliding scale and Lantus #. PAD continue aspirin and statin #. HTN will resume home medication #. CHFpEF compensated. Not on home lasix, will follow clinical course DVT prophylaxis: Hold anticoagulation until surgical evaluation
--- NOTE | 2022-02-27 10:45 | PHA.MEDREC ---
Pharmacy Consult ? Medication Reconciliation Pharmacy has completed the medication reconciliation.
--- NOTE | 2022-02-27 12:19 | PM.CNGS ---
History of Present Illness Consult details Consult date: 02/27/22 Reason for consult: wound care Narrative: Patient well known to me with prior history of left transmetatarsal amputation presents for return for nonhealing right foot diabetic ulcer. It continues to progress. She has done poorly. She has had a trial of IV antibiotics. Continues to fail. She now presents for follow-up. Review of Systems Review of Systems: Yes all other systems are reviewed and are negative Constitutional: Constitutional: Reports no additional constitutional complaints ENT: Reports Normal hearing present Cardiovascular: Cardiovascular: Denies chest pain, Denies chest pain at rest, Denies chest pain with activity and Denies pedal edema Respiratory: Respiratory: Denies cough Gastrointestinal: Gastrointestinal: Denies abdominal pain Musculoskeletal: Musculoskeletal: Denies abnormal gait, Denies muscle cramps and Denies radiating pain into limb Integumentary/Breasts: Skin/Breast: Denies skin ulcer and Denies wounds Neurologic: Reports Normal hearing present and Denies abnormal gait Psychiatric: Psychiatric: Reports no additional psychiatric complaints [facility] Past Medical History Medical History (Updated 02/27/22 @ 00:20 by Renita Bianchi MD) Abscess Amputated toe of left foot Amputation of left foot BMI 39.0-39.9,adult Chronic heart failure with preserved ejection fraction (HFpEF) Chronic osteomyelitis of foot Diabetes Diabetic foot infection Diabetic foot ulcer with osteomyelitis Hyperlipidemia Hypertension Insulin dependent diabetes mellitus Neuropathy Obesity Osteomyelitis Osteomyelitis PAD (peripheral artery disease) Type 2 diabetes mellitus with unspecified complications Vitamin B12 deficiency VRE (vancomycin resistant enterococcus) culture positive Family History Family History Mother Diabetes Hypertension Disk prolapse Father Diabetes Hypertension Sister No problems noted. Brother No problems noted. Daughter No problems noted. Son No problems noted. Surgical History Surgical History H/O spinal fusion History of amputation of left foot History of section History of tubal ligation Status post amputation of toe of right foot Social History Social History Household Members: Significant Other Household Members Other:: Housing: Apartment Do you presently have visiting nurse or other home services: Yes Alcohol intake: never Patient Tobacco Use Status: Never used Tobacco e-Cigarette/Vaping Use: Never Used Second Hand Smoke Exposure: No Advance Directives: Yes Advance Directives on File: Yes Advance Directives Date on File: 02/15/21 service: No Current occupational status: unemployed Meds Allergies Allergy/AdvReac Type Severity Reaction Status Date / Time No Known Allergies Allergy Verified 01/18/22 11:19 [No Known Allergies*] Active Medications: Current Medications Acetaminophen (Acetaminophen 325 Mg Tablet) 650 mg PO Q6H PRN PRN Reason: Pain, Mild (Pain Scale 1-3) Dextrose (Dextrose 50 % 25 Gm/50 Ml Syringe) 25 gm IVPUSH Q15M PRN; Protocol PRN Reason: per Hypoglycemia Standing Ord. Glucose (Glucose Gel 15 Gm Gel..Gram.) 15 gm PO Q15M PRN; Protocol PRN Reason: per Hypoglycemia Standing Ord. Meropenem 1 gm/ Sodium (Chloride) 100 mls @ 200 mls/hr IV Q12H [facility] Last Infusion: 02/27/22 02:34 Dose: Infused Vancomycin HCl 750 mg/ Sodium (Chloride) 265 mls @ 265 mls/hr IV Q24H [facility] Insulin Glargine (Insulin Glargine,Hum.Rec.Anlog 100 Unit/Ml 10 Ml Vial) 45 unit SUBCUT BEDTIME [facility] Last Admin: 02/27/22 01:22 Dose: 45 unit Insulin Human Lispro (Insulin Lispro 100 Unit/Ml 3 Ml Vial) 0.1 - 10 unit SUBCUT QIDACHS [facility]; Protocol Last Admin: 02/27/22 11:57 Dose: Not Given Melatonin (Melatonin 3 Mg Tablet) 6 mg PO BEDTIME PRN PRN Reason: Insomnia Morphine Sulfate (Morphine Sulfate 2 Mg/Ml Cartridge) 2 mg IVPUSH Q4H PRN; Protocol PRN Reason: Pain, Severe (Pain Scale 7-10) Last Admin: 02/27/22 11:50 Dose: 2 mg Ondansetron HCl (Ondansetron Hcl 4 Mg/2 Ml Vial) 4 mg IVPUSH Q8H PRN PRN Reason: Nausea and Vomiting Last Admin: 02/27/22 00:43 Dose: 4 mg Pharmacy Consult (Consult Rx Vancomycin Dosing) 1 each MISCELLANE DAILY PRN PRN Reason: Consult order Sodium Chloride (0.9 % Sodium Chloride Flush 3 Ml Syringe) [facility] Last Admin: 02/27/22 07:19 Dose: 3 ml Home Medications Medication Instructions Recorded Confirmed Last Taken Type amlodipine 10 mg tablet 1 tab PO DAILY 03/19/20 02/27/22 02/26/22 History gabapentin 300 mg capsule 1 cap PO TID 03/19/20 02/27/22 02/26/22 History insulin aspart U-100 100 unit/mL 25 unit subcut TIDAC 03/19/20 02/27/22 02/26/22 History subcutaneous solution (Novolog U-100 Insulin aspart) aspirin 81 mg chewable tablet 81 mg PO DAILY 06/17/21 02/27/22 02/26/22 History blood-glucose meter (FreeStyle #1 ea 07/03/21 02/26/22 History [place] Lite kit) insulin glargine 100 unit/mL 90 unit subcut BEDTIME 09/13/21 02/27/22 02/26/22 History subcutaneous solution (Lantus U-100 Insulin) atorvastatin 80 mg tablet 80 mg PO DAILY 11/29/21 02/27/22 02/26/22 History dulaglutide 0.75 mg/0.5 mL 0.75 mg subcut TU@1000 02/05/22 02/27/22 02/26/22 History subcutaneous pen injector (Trulicity) naproxen 500 mg tablet 500 mg PO BID PRN Headache 02/05/22 02/27/22 02/26/22 History urea 20 % topical cream 1 appl topical DAILY 02/05/22 02/27/22 02/26/22 History Physical Exam Vital Signs: Vital Signs: Last Vital Signs Temp 98.2 F 02/27/22 08:00 Pulse 77 02/27/22 08:00 Resp 14 02/27/22 08:00 BP 157/61 H 02/27/22 08:00 Pulse Ox 96 02/27/22 08:00 O2 Del Method 02/27/22 08:00 BMI result Body Mass Index 36.2 Const: General: cooperative, healthy appearing and comfortable Orientation/consciousness: oriented to person, oriented to place and oriented to time HEENT: Head: Yes normal to inspection Neck: Neck: Yes normal visual inspection Carotids: no bruits Chest: Chest palpation & inspection: normal inspection of the chest Resp: Effort & Inspection: normal respiratory effort and able to speak in complete sentences Auscultation: clear to auscultation bilaterally, no crackles, no rales, no rhonchi and no wheezes Cardio: Rate: regular rate Rhythm: regular rhythm Heart sounds: S1 normal heart sound present and S2 normal heart sound present Bruits: no carotid bruits Peripheral pulses: Peripheral pulses 2+ throughout GI: Inspection: Yes normal to inspection Skin: Other: Right foot wound going from the dorsal surface to the plantar surface. Wounds: no wounds Hair: normal Neuro: General: oriented to person, oriented to place and oriented to time Cranial nerves: Yes CN's II-XII intact bilaterally and Yes Normal hearing present Cognition (Neuro): normal cognition Motor exam (neuro): 5/5 motor strength present throughout Extrem: Other: venous exam: No significant superficial varicosities or spider telangiectasias, minimal edema General: No clubbing, No cyanosis and No edema Psych: Appearance: grossly normal Mental Status: mental status grossly normal Speech and movement: Normal speech and movement present Results Labs Result diagrams: 02/27/22 06:28 02/27/22 06:28 Labs: Abnormal lab results 02/26/22 02/26/22 02/26/22 Range/Units 11:58 11:58 22:32 WBC (4.8-10.8) X10*3/uL RBC (4.20-5.50) X10*6/uL Hgb (12.0-16.0) g/dl Hct (37.0-47.0) % MCH (27.0-33.0) pg MCHC (31.0-35.0) g/dl Plt Count (160-400) X10*3/uL Immature Gran % (Auto) 0.5 H (0.0-0.4) % Neut % (Auto) (45-73) % Lymph % (Auto) 19.6 L (20-40) % Anson # (Auto) 1.5 H (0.1-1.2) X10*3/uL Eos # (Auto) 0.8 H (0.0-0.4) X10*3/uL Abs Immat Gran (auto) 0.09 H (0.00-0.03) X10*3/uL Absolute Neuts (auto) 13.0 H (2.0-8.3) x10*3/uL Creatinine 1.71 H (0.5-1.4) mg/dL POC Glucose 279 H (60-115) mg/dL Random Glucose 120 H (60-115) mg/dL 02/27/22 02/27/22 02/27/22 Range/Units 01:02 06:28 06:28 WBC 17.6 H (4.8-10.8) X10*3/uL RBC 3.60 L (4.20-5.50) X10*6/uL Hgb 8.9 L (12.0-16.0) g/dl Hct 29.7 L (37.0-47.0) % MCH 24.7 L (27.0-33.0) pg MCHC 30.0 L (31.0-35.0) g/dl Plt Count 745 H (160-400) X10*3/uL Immature Gran % (Auto) 0.5 H (0.0-0.4) % Neut % (Auto) 73.4 H (45-73) % Lymph % (Auto) 13.6 L (20-40) % Anson # (Auto) 1.5 H (0.1-1.2) X10*3/uL Eos # (Auto) 0.6 H (0.0-0.4) X10*3/uL Abs Immat Gran (auto) 0.09 H (0.00-0.03) X10*3/uL Absolute Neuts (auto) 12.9 H (2.0-8.3) x10*3/uL Creatinine (0.5-1.4) mg/dL POC Glucose 257 H (60-115) mg/dL Random Glucose 156 H (60-115) mg/dL 02/27/22 Range/Units 07:13 WBC (4.8-10.8) X10*3/uL RBC (4.20-5.50) X10*6/uL Hgb (12.0-16.0) g/dl Hct (37.0-47.0) % MCH (27.0-33.0) pg MCHC (31.0-35.0) g/dl Plt Count (160-400) X10*3/uL Immature Gran % (Auto) (0.0-0.4) % Neut % (Auto) (45-73) % Lymph % (Auto) (20-40) % Anson # (Auto) (0.1-1.2) X10*3/uL Eos # (Auto) (0.0-0.4) X10*3/uL Abs Immat Gran (auto) (0.00-0.03) X10*3/uL Absolute Neuts (auto) (2.0-8.3) x10*3/uL Creatinine (0.5-1.4) mg/dL POC Glucose 135 H (60-115) mg/dL Random Glucose (60-115) mg/dL Short CBC 02/27/22 Range/Units 06:28 WBC 17.6 H (4.8-10.8) X10*3/uL Hgb 8.9 L (12.0-16.0) g/dl Hct 29.7 L (37.0-47.0) % Plt Count 745 H (160-400) X10*3/uL BMP 02/26/22 02/27/22 11:58 06:28 Sodium 140 141 Potassium 4.0 4.3 Chloride 103 105 Carbon Dioxide 22 23 BUN 16 13 Creatinine 1.71 H 1.31 Calcium 8.7 D 8.5 All other labs normal. Assessment and Plan (1) Diabetic infection of right foot: Status: Acute Plan In short patient has a nonhealing right foot wound. Unfortunately this is a non salvage situation. I do believe we have tried several attempts at a conservative management with her. Unfortunately due to the location of the wound transmetatarsal amputation would not be possible. I would recommend below-knee amputation. This was discussed with the patient. I will be away tomorrow but will have a family discussion on Friday regarding this. She is understandably upset about this whole situation. We will follow her with you. Thank you for allowing us to assist in her care. If there are any questions or concerns please do not hesitate to contact us. Procedures Date of Service Date of Service: 02/27/22
[2022-02-27 13:30] LABS: Glucose, Whole Blood 103 mg/dL (60-115)
[2022-02-27 16:55] LABS: Glucose, Whole Blood 104 mg/dL (60-115)
--- NOTE | 2022-02-27 18:49 | MHC.CM.PN ---
CM met with admitted patient in ED OVER flow with bed assignment pending. Pt requests that HCP be amended to add sister and HCP #2. Corrected. Copies given. Uploaded into [employer] and [facility] Go[employer]! Mobile. HCP #2 Sabrina Calabrese (sister) [phone]. Fully vaccinated with Moderna. Also received J&J. On file. Lives with . Uses walker and DM testing supplies. Has [facility] QOD for dressing changes and wound care. Referral placed to follow. Pt states she did not speak with surgeon yet and does not know what plan is. Understands that her foot wound is not healing. Per surgeon notes, pt will need BKA and he will speak with family on Friday, as he is off now. CM did not speak with patient regarding surgeon note. Pt states she would have home PT, but does not know that a BKA is going to be offered. If pt proceeds with BKA, will need STR. No referrals placed at this time. Unable to discuss with patient. Will need to address d/c plan after surgeon meets with patient on Friday. Pt states she will arrange transport home. CM to follow for d/c needs.
[2022-02-27 20:38] LABS: Glucose, Whole Blood 161 mg/dL (60-115)
[2022-02-27] MEDS: Acetaminophen 325 MG TABLET 650 MG PO (20:55)
[2022-02-27] MEDS: Melatonin 3 MG TABLET 6 MG PO (20:55)
--- NOTE | 2022-02-27 22:50 | P.CNID_ITS ---
History of Present Illness Data of Consult Service Date: 02/27/22 Requesting physician: Brynn Kwong Primary Care Provider: MD TOMMY Cam Reason for consult: right foot swelling and pain She presents with bleeding plantar area of foot. She also has open blister dorsum foot with what looks like old Silvadene. She says [facility] comes two to three times a week. She was just in February 12 due to cellulitis concern. Review of Systems Review of Systems: Yes all other systems are reviewed and are negative [facility] Past Medical History Medical History Abscess Amputated toe of left foot Amputation of left foot BMI 39.0-39.9,adult Chronic heart failure with preserved ejection fraction (HFpEF) Chronic osteomyelitis of foot Diabetes Diabetic foot infection Diabetic foot ulcer with osteomyelitis Hyperlipidemia Hypertension Insulin dependent diabetes mellitus Neuropathy Obesity Osteomyelitis Osteomyelitis PAD (peripheral artery disease) Type 2 diabetes mellitus with unspecified complications Vitamin B12 deficiency VRE (vancomycin resistant enterococcus) culture positive Family History Family History Mother Diabetes Hypertension Disk prolapse Father Diabetes Hypertension Sister No problems noted. Brother No problems noted. Daughter No problems noted. Son No problems noted. Family history: reviewed and not pertinent Surgical History Surgical History H/O spinal fusion History of amputation of left foot History of section History of tubal ligation Status post amputation of toe of right foot Social History Social History Household Members: Spouse Household Members Other:: Housing: Apartment Do you presently have visiting nurse or other home services: Yes Alcohol intake: never Patient Tobacco Use Status: Never used Tobacco e-Cigarette/Vaping Use: Never Used Second Hand Smoke Exposure: No Advance Directives Date on File: 02/15/21 service: No Current occupational status: unemployed Meds Allergies Allergy/AdvReac Type Severity Reaction Status Date / Time No Known Allergies Allergy Verified 01/18/22 11:19 [No Known Allergies*] Active Medications: Current Medications Acetaminophen (Acetaminophen 325 Mg Tablet) 650 mg PO Q6H PRN PRN Reason: Pain, Mild (Pain Scale 1-3) Last Admin: 02/27/22 20:55 Dose: 650 mg Dextrose (Dextrose 50 % 25 Gm/50 Ml Syringe) 25 gm IVPUSH Q15M PRN; Protocol PRN Reason: per Hypoglycemia Standing Ord. Glucose (Glucose Gel 15 Gm Gel..Gram.) 15 gm PO Q15M PRN; Protocol PRN Reason: per Hypoglycemia Standing Ord. Meropenem 1 gm/ Sodium (Chloride) 100 mls @ 200 mls/hr IV Q12H [facility] Last Infusion: 02/27/22 13:01 Dose: Infused Vancomycin HCl 750 mg/ Sodium (Chloride) 265 mls @ 265 mls/hr IV Q24H [facility] Insulin Glargine (Insulin Glargine,Hum.Rec.Anlog 100 Unit/Ml 10 Ml Vial) 45 unit SUBCUT BEDTIME [facility] Last Admin: 02/27/22 20:44 Dose: 45 unit Insulin Human Lispro (Insulin Lispro 100 Unit/Ml 3 Ml Vial) 0.1 - 10 unit SUBCUT QIDACHS [facility]; Protocol Last Admin: 02/27/22 20:46 Dose: 2 unit Melatonin (Melatonin 3 Mg Tablet) 6 mg PO BEDTIME PRN PRN Reason: Insomnia Last Admin: 02/27/22 20:55 Dose: 6 mg Morphine Sulfate (Morphine Sulfate 2 Mg/Ml Cartridge) 2 mg IVPUSH Q4H PRN; Protocol PRN Reason: Pain, Severe (Pain Scale 7-10) Last Admin: 02/27/22 20:56 Dose: 2 mg Ondansetron HCl (Ondansetron Hcl 4 Mg/2 Ml Vial) 4 mg IVPUSH Q8H PRN PRN Reason: Nausea and Vomiting Last Admin: 02/27/22 00:43 Dose: 4 mg Pharmacy Consult (Consult Rx Vancomycin Dosing) 1 each MISCELLANE DAILY PRN PRN Reason: Consult order Sodium Chloride (0.9 % Sodium Chloride Flush 3 Ml Syringe) 3 ml IVFLUSH [facility] Last Admin: 02/27/22 22:05 Dose: 3 ml Home Medications Medication Instructions Recorded Confirmed Last Taken Type amlodipine 10 mg tablet 1 tab PO DAILY 03/19/20 02/27/22 02/26/22 History gabapentin 300 mg capsule 1 cap PO TID 03/19/20 02/27/22 02/26/22 History insulin aspart U-100 100 unit/mL 25 unit subcut TIDAC 03/19/20 02/27/22 02/26/22 History subcutaneous solution (Novolog U-100 Insulin aspart) aspirin 81 mg chewable tablet 81 mg PO DAILY 06/17/21 02/27/22 02/26/22 History blood-glucose meter (FreeStyle #1 ea 07/03/21 02/26/22 History [place] Lite kit) insulin glargine 100 unit/mL 90 unit subcut BEDTIME 09/13/21 02/27/22 02/26/22 History subcutaneous solution (Lantus U-100 Insulin) atorvastatin 80 mg tablet 80 mg PO DAILY 11/29/21 02/27/22 02/26/22 History dulaglutide 0.75 mg/0.5 mL 0.75 mg subcut TU@1000 02/05/22 02/27/22 02/26/22 History subcutaneous pen injector (Trulicity) naproxen 500 mg tablet 500 mg PO BID PRN Headache 02/05/22 02/27/22 02/26/22 Hi story urea 20 % topical cream 1 appl topical DAILY 02/05/22 02/27/22 02/26/22 History Physical Exam Vital Signs: Vital Signs: Last Vital Signs Temp 97.5 F 02/27/22 22:33 Pulse 79 02/27/22 22:33 Resp 16 02/27/22 22:33 BP 136/63 02/27/22 22:33 Pulse Ox 94 02/27/22 22:33 O2 Del Method 02/27/22 22:33 BMI result Body Mass Index 36.2 Const: General: cooperative HEENT: Head: Yes normal to inspection Face and sinus: Yes normal facial exam Mouth: Normal oral and palatal mucosa present Teeth and gingiva: dentition normal Eyes: General: appearance normal, both eyes and all related structures Pupils: Equal, round and reactive pupils present Resp: Effort & Inspection: normal respiratory effort Cardio: Rate: regular rate Rhythm: regular rhythm GI: Palpation (GI): Soft to palpation and nontender : General: Yes no CVA tenderness Back/Spine/Pelvis: Back: no CVA tenderness Skin: General skin exam: no rashes or lesions noted Neuro: General: moves all extremities Cranial nerves: Yes Equal, round and reactive pupils present Extrem: Other: blackened area plantar foot dorsum top area Psych: Appearance: grossly normal Results Labs CBC & Chem 7: 02/27/22 06:28 02/27/22 06:28 Labs: Short CBC 02/27/22 Range/Units 06:28 WBC 17.6 H (4.8-10.8) X10*3/uL Hgb 8.9 L (12.0-16.0) g/dl Hct 29.7 L (37.0-47.0) % Plt Count 745 H (160-400) X10*3/uL BMP 02/27/22 06:28 Sodium 141 Potassium 4.3 Chloride 105 Carbon Dioxide 23 BUN 13 Creatinine 1.31 Calcium 8.5 Assessment and Plan (1) Chronic osteomyelitis of right foot: Status: Acute She has incurable osteomyelitis and unlikely healing or improvement with antibiotics Continue antibiotics until Dr Peguero sees patient and definitive surgical therapy (2) Current mild episode of major depressive disorder: Qualifiers: Major depression recurrence: unspecified whether recurrent Qualified Code(s): F32.0 - Major depressive disorder, single episode, mild Status: Acute
[2022-02-28] VITALS (7 sets, daily range): BP systolic 122–168; BP diastolic 58–77; PULSE 65–76; RESP 14–18; TEMP 36–36.6; O2SAT 92–98
[2022-02-28] MEDS: Morphine Sulfate 4 MG/ML CARTRIDGE IVPUSH (00:26)
[2022-02-28 03:26] LABS: Glucose, Whole Blood 85 mg/dL (60-115)
[2022-02-28] MEDS: Morphine Sulfate 2 MG/ML CARTRIDGE IVPUSH ×4 (06:34→20:26)
[2022-02-28 07:43] LABS: Creatinine Clr Calc Pharmacy 73.8; Estimated Glomerular Filt Rate > 60
[2022-02-28 07:51] LABS: Glucose, Whole Blood 85 mg/dL (60-115)
[2022-02-28] MEDS: Gabapentin 300 MG CAPSULE PO ×3 (08:19→20:28)
[2022-02-28] MEDS: Atorvastatin Calcium 80 MG TABLET PO (08:19)
[2022-02-28] MEDS: vancomycin HCL 750 MG in 0.9 % Sodium Chloride 250 ML 265 MG IV (08:19)
[2022-02-28] MEDS: 0.9 % Sodium Chloride Flush 3 ML SYRINGE IVFLUSH ×4 (08:19→23:24)
[2022-02-28] MEDS: amLODIPine Besylate 10 MG TABLET PO (08:19)
[2022-02-28] MEDS: Acetaminophen 325 MG TABLET 650 MG PO (10:35)
--- NOTE | 2022-02-28 10:51 | HO.PM.IMPN ---
Subjective Subjective Date of Service: 02/28/22 Interval History: Complaining of right foot pain, denies fever chills, no headache, no dizziness, denies nausea, vomiting, complaining of constipation, no abdominal pain, no other acute issues overnight. Physical Exam Vital Signs: Vital Signs: Last Vital Signs Temp 97.7 F 02/28/22 07:35 Pulse 76 02/28/22 07:35 Resp 18 02/28/22 07:35 BP 137/69 02/28/22 07:35 Pulse Ox 98 02/28/22 07:35 O2 Del Method 02/28/22 07:35 BMI result Body Mass Index 36.2 Const: Other: General, awake alert x3 in no acute distress? Neck supple, no JVD CVS Regular rate and rhythm, S1-S2 heard Respiratory Regular breath sounds bilaterally, no wheezing , no rhonchi Abdomen soft nontender, no guarding, no rigidity Neuro awake alert x3 speech clear Extremities status post left TMA, Right foot wound mid foot medial surface with serosanguineous purulent drainage, with surrounding erythema, warmth Psych: Normal mood Objective Data Active Medications Acetaminophen (Acetaminophen 325 Mg Tablet) 650 mg PO Q6H PRN PRN Reason: Pain, Mild (Pain Scale 1-3) Last Admin: 02/28/22 10:35 Dose: 650 mg Documented By: SHANI Amlodipine Besylate (Amlodipine Besylate 10 Mg Tablet) 10 mg PO DAILY [facility]; Protocol Last Admin: 02/28/22 08:19 Dose: 10 mg Documented By: SHANI Atorvastatin Calcium (Atorvastatin Calcium 80 Mg Tablet) 80 mg PO DAILY [facility] Last Admin: 02/28/22 08:19 Dose: 80 mg Documented By: SHANI Dextrose (Dextrose 50 % 25 Gm/50 Ml Syringe) 25 gm IVPUSH Q15M PRN; Protocol PRN Reason: per Hypoglycemia Standing Ord. Gabapentin (Gabapentin 300 Mg Capsule) 300 mg PO TID [facility] Last Admin: 02/28/22 08:19 Dose: 300 mg Documented By: SHANI Glucose (Glucose Gel 15 Gm Gel..Gram.) 15 gm PO Q15M PRN; Protocol PRN Reason: per Hypoglycemia Standing Ord. Meropenem 1 gm/ Sodium (Chloride) 100 mls @ 200 mls/hr IV Q12H [facility] Last Infusion: 02/28/22 01:15 Dose: 0 mls/hr Documented By: MICHELLE Vancomycin HCl 750 mg/ Sodium (Chloride) 265 mls @ 265 mls/hr IV Q24H [facility] Last Infusion: 02/28/22 09:49 Dose: 0 mls/hr Documented By: SHANI Insulin Glargine (Insulin Glargine,Hum.Rec.Anlog 100 Unit/Ml 10 Ml Vial) 45 unit SUBCUT BEDTIME [facility] Last Admin: 02/27/22 20:44 Dose: 45 unit Documented By: ELDER Insulin Human Lispro (Insulin Lispro 100 Unit/Ml 3 Ml Vial) 0.1 - 10 unit SUBCUT QIDACHS [facility]; Protocol Last Admin: 02/28/22 07:54 Dose: Not Given Documented By: SHANI Non-Admin Reason: No Insulin Coverage Melatonin (Melatonin 3 Mg Tablet) 6 mg PO BEDTIME PRN PRN Reason: Insomnia Last Admin: 02/27/22 20:55 Dose: 6 mg Documented By: ELDER Morphine Sulfate (Morphine Sulfate 2 Mg/Ml Cartridge) 2 mg IVPUSH Q4H PRN; Protocol PRN Reason: Pain, Severe (Pain Scale 7-10) Last Admin: 02/28/22 10:35 Dose: 2 mg Documented By: SHANI Ondansetron HCl (Ondansetron Hcl 4 Mg/2 Ml Vial) 4 mg IVPUSH Q8H PRN PRN Reason: Nausea and Vomiting Last Admin: 02/27/22 00:43 Dose: 4 mg Documented By: MARCK Pharmacy Consult (Consult Rx Vancomycin Dosing) 1 each MISCELLANE DAILY PRN PRN Reason: Consult order Sodium Chloride (0.9 % Sodium Chloride Flush 3 Ml Syringe) 3 ml IVFLUSH QSHIFT [facility] Last Admin: 02/28/22 08:19 Dose: 3 ml Documented By: SHANI Labs CBC & Chem 7: 02/27/22 06:28 02/28/22 07:09 Labs: Laboratory Results - last 24 hr 02/27/22 02/27/22 02/27/22 11:43 16:51 20:34 Estim Creat Clear Calc Estimated GFR POC Glucose 103 104 161 H 02/28/22 02/28/22 02/28/22 03:19 07:09 07:39 Estim Creat Clear Calc 73.8 Estimated GFR > 60 POC Glucose 85 85 Microbiology Microbiology Results: Microbiology 02/26/22 23:54 Blood Culture - Preliminary Blood - Venous No growth after 24 hours. 02/26/22 23:54 Blood Culture - Preliminary Blood - Venous No growth after 24 hours. Assessment and Plan (1) AMY (acute kidney injury): Status: Acute (2) Insulin dependent diabetes mellitus: Status: Acute (3) Chronic osteomyelitis of right foot: Status: Acute Plan 51-year-old female with pertinent history of insulin-dependent diabetes mellitus with neuropathy, essential hypertension, peripheral vascular disease with history of left transmetatarsal amputation and chronic osteomyelitis of the right foot who was sent to the emergency department by [facility] for evaluation of right foot wounds. #. Diabetic foot infection with infected non-healing wound with cellulitis and chronic right foot osteomyelitis Persistent right foot pain, no fevers no chills blood cultures x2 negative times 24 hours ? ? on IV meropenem and vancomycin day 2 Continue daily dressing and pain management ? ? Case discussed with Dr. Peguero he recommend BKA, Dr. Graves agree with BKA since patient has chronic osteomyelitis less likely to respond to IV antibiotics #. Acute kidney injury likely pre renal renal function improved s/p IV hydration, continue to follow bmp while on vanco #.? Insulin-dependent diabetes mellitus with hyperglycemia continue diabetic diet insulin sliding scale and Lantus, noted to have is stable blood sugars #. PAD continue aspirin and statin #. HTN will resume home medication #. CHFpEF ?? compensated. Not on home lasix, will follow clinical course # constipation will add stool softeners DVT prophylaxis: On Lovenox will hold prior to surgery Patient need continued inpatient hospitalization for nonhealing diabetic right foot wound currently on IV antibiotic will need BKA. Quality Stroke Does the patient have a stroke diagnosis?: No VTE Prior VTE?: No VTE Risk Level:: Medical - moderate - high VTE Device Contraindication: Treatment Not Indicated VTE Drug Contraindication: Treatment Not Indicated
--- NOTE | 2022-02-28 12:41 | HE.PHANOTE ---
KAT HEATH CONTINUE CURRENT DOSE, NEXT TROUGH 03/01 @0600. CONTINUE INCREASING DOSE TO 1000MG Q24 IN SETTING OF IMPROVING RENAL FUNCTION DEIDRE
[2022-02-28 13:23] LABS: Glucose, Whole Blood 88 mg/dL (60-115)
[2022-02-28] MEDS: polyethylene glycoL 3350 17 GM POWD.PACK PO (13:34)
[2022-02-28] MEDS: Enoxaparin Sodium 40 MG/0.4 ML SYRINGE SUBCUT (13:35)
[2022-02-28 15:59] LABS: Glucose, Whole Blood 117 mg/dL (60-115)
[2022-02-28 20:02] LABS: Glucose, Whole Blood 178 mg/dL (60-115)
[2022-02-28] MEDS: Insulin Lispro 100 UNIT/ML 3 ML VIAL SUBCUT (20:27)
[2022-02-28] MEDS: Insulin Glargine,Hum.rec.anlog 100 UNIT/ML 10 ML VIAL 40 UNIT SUBCUT (20:28)
[2022-03-01] MEDS: Morphine Sulfate 2 MG/ML CARTRIDGE IVPUSH ×5 (01:55→23:52)
[2022-03-01 02:49] VITALS: BP 142/65; PULSE 77; RESP 16; TEMP 37.2; O2SAT 98
[2022-03-01 06:39] LABS: Creatinine Clr Calc Pharmacy 85.4; Estimated Glomerular Filt Rate > 60
[2022-03-01 06:44] LABS: Vancomycin Trough 10.9 mcg/mL (10.0-20.0)
--- NOTE | 2022-03-01 06:52 | HE.PHANOTE ---
RE VANCO PATIENT TROUGH WAS 10.9 WHICH CORRELATES TO AN AUC OF 415. ALTHOUGH AT GOAL , I THINK IT IS ONLY THIS HIGH SINCE HER LOADING DOSE WAS SPLIT. PATIENT HAS CHRONIC OSTEO, AND PER NOTE, WILL NEED BKA. I AM INCREASING THE DOSE TO 1500MG Q24H, WHICH WILL YIELD A SUSPECTED TROUGH OF 13.9 BUT AN AUC OF 535. NEXT RANDOM DUE 03/03 @0600 DEIDRE
[2022-03-01 07:31] VITALS: BP 162/76; PULSE 76; RESP 16; TEMP 37.4; O2SAT 93
[2022-03-01 07:31] LABS: Glucose, Whole Blood 79 mg/dL (60-115)
[2022-03-01] MEDS: polyethylene glycoL 3350 17 GM POWD.PACK PO (09:14)
[2022-03-01] MEDS: Atorvastatin Calcium 80 MG TABLET PO (09:14)
[2022-03-01] MEDS: vancomycin HCL 1,500 MG in 0.9 % Sodium Chloride 500 ML 333.33 MG IV (09:14)
[2022-03-01] MEDS: Gabapentin 300 MG CAPSULE PO ×3 (09:14→20:45)
[2022-03-01] MEDS: amLODIPine Besylate 10 MG TABLET PO (09:14)
--- NOTE | 2022-03-01 10:59 | HO.VASCPN ---
Subjective Subjective Date of Service: 03/01/22 Patient reports: no new complaints Interval history: Patient seen and examined. Events over the past day or 2 noted. She has been started on antibiotics. No significant improvement on the right lower extremity. She now presents for follow-up and discussion about amputation. Physical Exam Vital Signs: Vital Signs: Last Vital Signs Temp 99.3 F 03/01/22 07:31 Pulse 76 03/01/22 07:31 Resp 16 03/01/22 07:31 BP 162/76 H 03/01/22 07:31 Pulse Ox 93 03/01/22 07:31 O2 Del Method 03/01/22 07:31 BMI result Body Mass Index 36.2 Const: General: cooperative, healthy appearing and no acute distress Orientation/consciousness: oriented to person, oriented to place and oriented to time HEENT: Head: Yes normal to inspection Neck: Carotids: no bruits Chest: Chest palpation & inspection: normal inspection of the chest Resp: Effort & Inspection: normal respiratory effort and able to speak in complete sentences Auscultation: clear to auscultation bilaterally Cardio: Rate: regular rate Heart sounds: S1 normal heart sound present and S2 normal heart sound present GI: Inspection: Yes normal to inspection Skin: General skin exam: no rashes or lesions noted Wounds: wounds noted (Right foot nonhealing 4th and 5th toe amp and ulcer penetrating from planta) Neuro: General: oriented to person, oriented to place, oriented to time and CN's II-XI intact bilaterally Extrem: General: Yes normal to inspection, Yes full ROM and Yes no clubbing, cyanosis or edema Psych: Appearance: grossly normal and well kempt Speech and movement: Normal speech and movement present Affect: normal affect Progress Note: A&P Assessment and plan (1) Chronic osteomyelitis of right foot: Status: Acute Assessment and Plan: In short patient has a chronic right lower extremity diabetic foot ulcer with with osteomyelitis. She has had several attempts at a trial of conservative management with antibiotics. They have failed. Infectious Disease note appreciated. Due to the location of the ulcer her she will require a right below-knee amputation. Of family discussion between myself the patient and her daughter halie scruggs was had in detail today. They agreed and would like to move forward. Risks benefits complications were discussed in detail with the patient and the patient's daughter. They agreed and consented. We will schedule her for Friday for. At the current time would continue antibiotics as she does have cellulitis of that foot area, and chronic drainage from the right plantar aspect. Will schedule. Thank you for allowing us to assist in her care. If there are any questions or concerns please do not hesitate to contact us. Time Spent With Patient Time: Total time spent is greater than 50% in coordination of care (as documented) at patient's floor/unit and/or counseling patient: Procedures Date of Service Date of Service: 03/01/22 Quality Stroke Does the patient have a stroke diagnosis?: No VTE Prior VTE?: No VTE Risk Level:: Medical - moderate - high VTE Device Contraindication: Treatment Not Indicated VTE Drug Contraindication: Treatment Not Indicated
[2022-03-01 11:25] LABS: Glucose, Whole Blood 84 mg/dL (60-115)
[2022-03-01 11:29] VITALS: BP 139/63; PULSE 76; RESP 16; TEMP 36.6; O2SAT 93
[2022-03-01] MEDS: Enoxaparin Sodium 40 MG/0.4 ML SYRINGE SUBCUT (12:37)
--- NOTE | 2022-03-01 13:07 | HO.PM.IMPN ---
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 Neck supple, no JVD CVS Regular rate and rhythm, S1-S2 heard Respiratory Regular breath sounds bilaterally, no wheezing , no rhonchi Abdomen soft nontender, no guarding, no rigidity Neuro awake alert x3 speech clear Extremities status post left TMA, Right foot wound mid foot with no drainage, with surrounding erythema, warmth extending upward towards right leg Psych: Normal mood Objective Data Active Medications Acetaminophen (Acetaminophen 325 Mg Tablet) 650 mg PO Q6H PRN PRN Reason: Pain, Mild (Pain Scale 1-3) Last Admin: 02/28/22 10:35 Dose: 650 mg Documented By: SHANI Amlodipine Besylate (Amlodipine Besylate 10 Mg Tablet) 10 mg PO DAILY [facility] TO [facility]; Protocol Last Admin: 03/01/22 09:14 Dose: 10 mg Documented By: LISA Atorvastatin Calcium (Atorvastatin Calcium 80 Mg Tablet) 80 mg PO DAILY [facility] Last Admin: 03/01/22 09:14 Dose: 80 mg Documented By: LISA Dextrose (Dextrose 50 % 25 Gm/50 Ml Syringe) 25 gm IVPUSH Q15M PRN; Protocol PRN Reason: per Hypoglycemia Standing Ord. Enoxaparin Sodium (Enoxaparin Sodium 40 Mg/0.4 Ml Syringe) 40 mg SUBCUT Q24H [facility] Last Admin: 03/01/22 12:37 Dose: 40 mg Documented By: LISA Gabapentin (Gabapentin 300 Mg Capsule) 300 mg PO TID [facility] Last Admin: 03/01/22 09:14 Dose: 300 mg Documented By: LISA Glucose (Glucose Gel 15 Gm Gel..Gram.) 15 gm PO Q15M PRN; Protocol PRN Reason: per Hypoglycemia Standing Ord. Meropenem 1 gm/ Sodium (Chloride) 100 mls @ 200 mls/hr IV Q12H [facility] Last Infusion: 02/28/22 23:57 Dose: 0 mls/hr Documented By: CAREY Vancomycin HCl 1,500 mg/ (Sodium Chloride) 500 mls @ 333.333 mls/hr IV Q24H [facility] Last Infusion: 03/01/22 12:06 Dose: 0 mls/hr Documented By: YUE Insulin Glargine (Insulin Glargine,Hum.Rec.Anlog 100 Unit/Ml 10 Ml Vial) 40 unit SUBCUT BEDTIME [facility] Last Admin: 02/28/22 20:28 Dose: 40 unit Documented By: CAREY Insulin Human Lispro (Insulin Lispro 100 Unit/Ml 3 Ml Vial) 0.1 - 10 unit SUBCUT QIDACHS [facility]; Protocol Last Admin: 03/01/22 11:40 Dose: Not Given Documented By: LISA Non-Admin Reason: No Insulin Coverage Melatonin (Melatonin 3 Mg Tablet) 6 mg PO BEDTIME PRN PRN Reason: Insomnia Last Admin: 02/27/22 20:55 Dose: 6 mg Documented By: ELDER Morphine Sulfate (Morphine Sulfate 2 Mg/Ml Cartridge) 2 mg IVPUSH Q4H PRN; Protocol PRN Reason: Pain, Severe (Pain Scale 7-10) Last Admin: 03/01/22 11:13 Dose: 2 mg Documented By: LISA Ondansetron HCl (Ondansetron Hcl 4 Mg/2 Ml Vial) 4 mg IVPUSH Q8H PRN PRN Reason: Nausea and Vomiting Last Admin: 02/27/22 00:43 Dose: 4 mg Documented By: MARCK Pharmacy Consult (Consult Rx Vancomycin Dosing) 1 each MISCELLANE DAILY PRN PRN Reason: Consult order Polyethylene Glycol (Polyethylene Glycol 3350 17 Gm Powd.Pack) 17 gm PO DAILY [facility] Last Admin: 03/01/22 09:14 Dose: 17 gm Documented By: LISA Sodium Chloride (0.9 % Sodium Chloride Flush 3 Ml Syringe) 3 ml IVFLUSH QSHIFT [facility] Last Admin: 03/01/22 08:47 Dose: Not Given Documented By: YUE Non-Admin Reason: See Note Labs CBC & Chem 7: 02/27/22 06:28 03/01/22 05:18 Labs: Laboratory Results - last 24 hr 02/28/22 02/28/22 02/28/22 13:18 15:09 19:34 Estim Creat Clear Calc Estimated GFR POC Glucose 88 117 H 178 H Vancomycin Trough 03/01/22 03/01/22 03/01/22 05:18 05:18 07:16 Estim Creat Clear Calc 85.4 Estimated GFR > 60 POC Glucose 79 Vancomycin Trough 10.9 03/01/22 11:20 Estim Creat Clear Calc Estimated GFR POC Glucose 84 Vancomycin Trough Microbiology Microbiology Results: Microbiology 02/26/22 23:54 Blood Culture - Preliminary Blood - Venous No growth after 48 hours. 02/26/22 23:54 Blood Culture - Preliminary Blood - Venous No growth after 48 hours. Assessment and Plan (1) AMY (acute kidney injury): Status: Acute (2) Insulin dependent diabetes mellitus: Status: Acute (3) Chronic osteomyelitis of right foot: Status: Acute Plan 51-year-old female with pertinent history of insulin-dependent diabetes mellitus with neuropathy, essential hypertension, peripheral vascular disease with history of left transmetatarsal amputation and chronic osteomyelitis of the right foot who was sent to the emergency department by [facility] for evaluation of right foot wounds. #. Diabetic foot infection with infected non-healing wound with cellulitis and chronic right foot osteomyelitis better pain control right foot , no fevers no chills blood cultures x2 negative times 24 hours ? ? on IV meropenem and vancomycin day 3 Continue daily dressing and pain management ? ? Patient is scheduled for right BKA on Friday, will make NPO Friday Dr. Graves agree with BKA since patient has chronic osteomyelitis less likely to respond to IV antibiotics #. Acute kidney injury likely pre renal renal function improved s/p IV hydration, continue to follow bmp while on vanco #.? Insulin-dependent diabetes mellitus with hyperglycemia continue diabetic diet insulin sliding scale and Lantus, stable blood sugars #. PAD continue aspirin and statin #. HTN stable, continue Norvasc #. CHFpEF ?? compensated. Not on home lasix, will follow clinical course # constipation added stool softeners DVT prophylaxis: On Lovenox will hold prior to surgery Patient need continued inpatient hospitalization for nonhealing diabetic right foot wound currently on IV antibiotic will need BKA. Quality Stroke Does the patient have a stroke diagnosis?: No VTE Prior VTE?: No VTE Risk Level:: Medical - moderate - high VTE Device Contraindication: Treatment Not Indicated VTE Drug Contraindication: Treatment Not Indicated
[2022-03-01] MEDS: Docusate Sodium 100 MG CAPSULE 200 MG PO (15:01)
[2022-03-01 16:00] VITALS: BP 143/70; PULSE 76; RESP 18; TEMP 36.4; O2SAT 97
[2022-03-01 16:13] LABS: Glucose, Whole Blood 172 mg/dL (60-115)
[2022-03-01] MEDS: Insulin Lispro 100 UNIT/ML 3 ML VIAL SUBCUT ×2 (17:42→20:45)
[2022-03-01 20:00] VITALS: BP 153/76; PULSE 79; RESP 18; TEMP 36.1; O2SAT 95
[2022-03-01 20:06] LABS: Glucose, Whole Blood 174 mg/dL (60-115)
[2022-03-01] MEDS: Insulin Glargine,Hum.rec.anlog 100 UNIT/ML 10 ML VIAL 40 UNIT SUBCUT (20:45)
[2022-03-01] MEDS: 0.9 % Sodium Chloride Flush 3 ML SYRINGE IVFLUSH (20:49)
[2022-03-02] VITALS (7 sets, daily range): BP systolic 128–167; BP diastolic 54–79; PULSE 73–81; RESP 16–17; TEMP 36.4–37.2; O2SAT 92–96
[2022-03-02 02:12] LABS: Hematocrit 28.2 % (37.0-47.0); Hemoglobin 8.7 g/dl (12.0-16.0)
[2022-03-02] MEDS: Morphine Sulfate 2 MG/ML CARTRIDGE IVPUSH ×5 (03:37→22:51)
[2022-03-02] MEDS: oxyCODONE HCl Immed Release 5 MG TABLET PO (05:38)
[2022-03-02] MEDS: Acetaminophen 325 MG TABLET 650 MG PO ×2 (05:38→12:32)
[2022-03-02 06:12] LABS: Creatinine Clr Calc Pharmacy 87.6; Estimated Glomerular Filt Rate > 60
--- NOTE | 2022-03-02 06:51 | HE.PHANOTE ---
Vancomycin Dosing Addendum Renal function stable. Continue current regimen 1500 mg Q24H. Trough scheduled for 03/03 @ 0600. Alan ToddD
[2022-03-02 07:27] LABS: Glucose, Whole Blood 120 mg/dL (60-115)
[2022-03-02] MEDS: Gabapentin 300 MG CAPSULE PO ×3 (07:54→21:04)
[2022-03-02] MEDS: Atorvastatin Calcium 80 MG TABLET PO (07:54)
[2022-03-02] MEDS: amLODIPine Besylate 10 MG TABLET PO (07:54)
[2022-03-02] MEDS: 0.9 % Sodium Chloride Flush 3 ML SYRINGE IVFLUSH ×2 (07:55→21:05)
[2022-03-02] MEDS: polyethylene glycoL 3350 17 GM POWD.PACK PO (07:55)
[2022-03-02] MEDS: Docusate Sodium 100 MG CAPSULE 200 MG PO (07:55)
[2022-03-02] MEDS: vancomycin HCL 1,500 MG in 0.9 % Sodium Chloride 500 ML 333.33 MG IV (08:12)
[2022-03-02 11:10] LABS: Glucose, Whole Blood 101 mg/dL (60-115)
--- NOTE | 2022-03-02 11:23 | HO.PM.IMPN ---
Subjective Subjective Date of Service: 03/02/22 Interval History: patient seen and examined at bedside. She has no acute complaint. She has some bleeding from the foot last night while ambulating from bed to bathroom. She denies any acute pain, denies any chest pain, no shortness of breath, no abdominal pain nausea or vomiting, she has been moving her bowels, no urinary symptoms. Review of Systems Review of Systems: Yes all other systems are reviewed and are negative Physical Exam Vital Signs: Vital Signs: Last Vital Signs Temp 97.8 F 03/02/22 11:09 Pulse 73 03/02/22 11:09 Resp 16 03/02/22 11:09 BP 146/61 H 03/02/22 11:09 Pulse Ox 92 03/02/22 11:09 O2 Del Method 03/02/22 11:09 BMI result Body Mass Index 36.2 Const: Other: Patient awake alert, oriented x3, no acute distress Resp: Other: clear to auscultation bilaterally Cardio: Other: normal rate and rhythm GI: Other: abdomen soft, nontender Extrem: Other: right lower extremity in dressing, dressing clean Objective Data Active Medications Acetaminophen (Acetaminophen 325 Mg Tablet) 650 mg PO Q6H PRN PRN Reason: Pain, Mild (Pain Scale 1-3) Last Admin: 03/02/22 05:38 Dose: 650 mg Documented By: CALLUM Amlodipine Besylate (Amlodipine Besylate 10 Mg Tablet) 10 mg PO DAILY [facility]; Protocol Last Admin: 03/02/22 07:54 Dose: 10 mg Documented By: SHANI Atorvastatin Calcium (Atorvastatin Calcium 80 Mg Tablet) 80 mg PO DAILY [facility] Last Admin: 03/02/22 07:54 Dose: 80 mg Documented By: SHANI Dextrose (Dextrose 50 % 25 Gm/50 Ml Syringe) 25 gm IVPUSH Q15M PRN; Protocol PRN Reason: per Hypoglycemia Standing Ord. Docusate Sodium (Docusate Sodium 100 Mg Capsule) 200 mg PO DAILY [facility] Last Admin: 03/02/22 07:55 Dose: 200 mg Documented By: SHANI Gabapentin (Gabapentin 300 Mg Capsule) 300 mg PO TID [facility] Last Admin: 03/02/22 07:54 Dose: 300 mg Documented By: SHANI Glucose (Glucose Gel 15 Gm Gel..Gram.) 15 gm PO Q15M PRN; Protocol PRN Reason: per Hypoglycemia Standing Ord. Meropenem 1 gm/ Sodium (Chloride) 100 mls @ 200 mls/hr IV Q12H [facility] Last Infusion: 03/02/22 01:02 Dose: 0 mls/hr Documented By: CALLUM Vancomycin HCl 1,500 mg/ (Sodium Chloride) 500 mls @ 333.333 mls/hr IV Q24H [facility] Last Infusion: 03/02/22 10:00 Dose: 0 mls/hr Documented By: SHANI Insulin Glargine (Insulin Glargine,Hum.Rec.Anlog 100 Unit/Ml 10 Ml Vial) 40 unit SUBCUT BEDTIME [facility] Last Admin: 03/01/22 20:45 Dose: 40 unit Documented By: CALLUM Insulin Human Lispro (Insulin Lispro 100 Unit/Ml 3 Ml Vial) 0.1 - 10 unit SUBCUT QIDACHS [facility]; Protocol Last Admin: 03/02/22 11:13 Dose: Not Given Documented By: SHANI Non-Admin Reason: No Insulin Coverage Melatonin (Melatonin 3 Mg Tablet) 6 mg PO BEDTIME PRN PRN Reason: Insomnia Last Admin: 02/27/22 20:55 Dose: 6 mg Documented By: ELDER Morphine Sulfate (Morphine Sulfate 2 Mg/Ml Cartridge) 2 mg IVPUSH Q4H PRN; Protocol PRN Reason: Pain, Severe (Pain Scale 7-10) Last Admin: 03/02/22 07:53 Dose: 2 mg Documented By: SHANI Ondansetron HCl (Ondansetron Hcl 4 Mg/2 Ml Vial) 4 mg IVPUSH Q8H PRN PRN Reason: Nausea and Vomiting Last Admin: 02/27/22 00:43 Dose: 4 mg Documented By: MARCK Oxycodone HCl (Oxycodone Hcl Immed Release 5 Mg Tablet) 5 mg PO Q6H PRN PRN Reason: Pain, Moderate (Pain Scale 4-6 Last Admin: 03/02/22 05:38 Dose: 5 mg Documented By: CALLUM Pharmacy Consult (Consult Rx Vancomycin Dosing) 1 each MISCELLANE DAILY PRN PRN Reason: Consult order Polyethylene Glycol (Polyethylene Glycol 3350 17 Gm Powd.Pack) 17 gm PO DAILY [facility] Last Admin: 03/02/22 07:55 Dose: 17 gm Documented By: SHANI Sodium Chloride (0.9 % Sodium Chloride Flush 3 Ml Syringe) 3 ml IVFLUSH QSHIFT [facility] Last Admin: 03/02/22 07:55 Dose: 3 ml Documented By: SHANI Labs CBC & Chem 7: 03/02/22 02:05 03/02/22 05:14 Labs: Laboratory Results - last 24 hr 03/01/22 03/01/22 03/01/22 11:20 16:09 20:01 Estim Creat Clear Calc Estimated GFR POC Glucose 84 172 H 174 H 03/02/22 03/02/22 03/02/22 05:14 07:23 10:54 Estim Creat Clear Calc 87.6 Estimated GFR > 60 POC Glucose 120 H 101 Assessment and Plan (1) AMY (acute kidney injury): Status: Acute (2) VRE (vancomycin resistant enterococcus) culture positive: Status: Acute (3) Diabetic infection of right foot: Status: Acute (4) Cellulitis of right foot: Status: Acute Plan 51-year-old female with pertinent history of insulin-dependent diabetes mellitus with neuropathy, essential hypertension, peripheral vascular disease with history of left transmetatarsal amputation and chronic osteomyelitis of the right foot who was sent to the emergency department by [facility] for evaluation of right foot wounds. # Diabetic foot infection with infected non-healing wound with cellulitis and chronic right foot osteomyelitis - acute on chronic osteomyelitis of right foot with acute cellulitis - cultures negative to date - will continue IV meropenem and vancomycin day 4 - Continue daily dressing and pain management - Patient is scheduled for right BKA on Friday, will make NPO Friday - Dr. Graves agree with BKA since patient has chronic osteomyelitis less likely to respond to IV antibiotics # Acute kidney injury likely pre renal renal function improved s/p IV hydration, - continue to follow bmp while on vanco #Insulin-dependent diabetes mellitus with hyperglycemia - continue diabetic diet insulin sliding scale and Lantus, - diabetic diet - POC a.c. HS - stable blood sugars # PAD - likely contributing to her nonhealing wounds - continue aspirin and statin # HTN - stable, continue Norvasc # CHFpEF - compensated. - Not on home lasix, will follow clinical course # constipation - added stool softeners DVT prophylaxis: On Lovenox will hold prior to surgery Patient need continued inpatient hospitalization for nonhealing diabetic right foot wound currently on IV antibiotic will need BKA. Quality Stroke Does the patient have a stroke diagnosis?: No VTE Prior VTE?: No VTE Risk Level:: Medical - moderate - high VTE Device Contraindication: Treatment Not Indicated VTE Drug Contraindication: Treatment Not Indicated
[2022-03-02] MEDS: Enoxaparin Sodium 40 MG/0.4 ML SYRINGE SUBCUT (12:07)
[2022-03-02 16:47] LABS: Glucose, Whole Blood 138 mg/dL (60-115)
[2022-03-02 20:42] LABS: Glucose, Whole Blood 228 mg/dL (60-115)
[2022-03-02] MEDS: Insulin Lispro 100 UNIT/ML 3 ML VIAL SUBCUT (21:04)
[2022-03-02] MEDS: Insulin Glargine,Hum.rec.anlog 100 UNIT/ML 10 ML VIAL 40 UNIT SUBCUT (21:05)
[2022-03-03] VITALS (10 sets, daily range): BP systolic 116–164; BP diastolic 57–82; PULSE 72–83; RESP 14–18; TEMP 36.2–37.3; O2SAT 91–96
[2022-03-03] MEDS: Morphine Sulfate 2 MG/ML CARTRIDGE IVPUSH ×3 (06:18→16:25)
[2022-03-03 07:26] LABS: Anion Gap 15 (12-20); Blood Urea Nitrogen 10 mg/dL (9-16); Calcium 8.1 mg/dL (8.4-10.2); Carbon Dioxide 25 mmol/L (22-29); Chloride 105 mmol/L (96-108); Creatinine Clr Calc Pharmacy 83.4; Estimated Glomerular Filt Rate > 60; Glucose Random 183 mg/dL (60-115); Potassium 4.2 mmol/L (3.3-5.1); Sodium 141 mmol/L (135-145)
[2022-03-03 07:28] LABS: Glucose, Whole Blood 164 mg/dL (60-115)
[2022-03-03 07:29] LABS: Creatinine Clr Calc Pharmacy 82.5; Estimated Glomerular Filt Rate > 60
[2022-03-03 07:33] LABS: Vancomycin Random 17.2 mcg/mL (15-20)
--- NOTE | 2022-03-03 07:42 | HE.PHANOTE ---
Vancomycin Dosing Addendum Trough increase to 17.2 from 10.9. Level is still expected to increase. Due to the large increase in the level will decrease dose to 1250 mg Q24H. Expected AUC 503 with a trough of 16.3. Next trough to be drawn 03/05 @ 0600. Pharmacy will continue to monitor renal function. Hedy Cueva, PharmD
[2022-03-03] MEDS: amLODIPine Besylate 10 MG TABLET PO (07:51)
[2022-03-03] MEDS: Insulin Lispro 100 UNIT/ML 3 ML VIAL SUBCUT ×3 (07:52→20:11)
[2022-03-03] MEDS: Atorvastatin Calcium 80 MG TABLET PO (07:52)
[2022-03-03] MEDS: Docusate Sodium 100 MG CAPSULE 200 MG PO (07:52)
[2022-03-03] MEDS: Gabapentin 300 MG CAPSULE PO ×3 (07:52→20:11)
[2022-03-03] MEDS: 0.9 % Sodium Chloride Flush 3 ML SYRINGE IVFLUSH ×3 (07:52→20:12)
[2022-03-03] MEDS: polyethylene glycoL 3350 17 GM POWD.PACK PO (07:53)
[2022-03-03] MEDS: vancomycin HCL 1,250 MG in 0.9 % Sodium Chloride 250 ML 166.67 MG IV (07:53)
[2022-03-03 08:05] LABS: MANUAL DIFF FLAG NO
[2022-03-03 08:06] LABS: Basophils Absolute Auto 0.2 X10*3/uL (0.0-0.2); Basophils Percent Auto 1.1 % (0-2); Eosinophils Absolute Auto 0.6 X10*3/uL (0.0-0.4); Eosinophils Percent Auto 4.5 % (0-4); Hematocrit 27.7 % (37.0-47.0); Hemoglobin 8.5 g/dl (12.0-16.0); Imm Gran Abs Auto 0.06 X10*3/uL (0.00-0.03); Imm Gran Pct Auto 0.4 % (0.0-0.4); Lymphocytes Absolute Auto 2.7 X10*3/uL (1.2-4.9); Mean Corpuscular HGB Conc 30.7 g/dl (31.0-35.0); Mean Corpuscular Hemoglobin 25.2 pg (27.0-33.0); Mean Corpuscular Volume 82.2 fL (80.0-98.0); Mean Platelet Volume 9.9 fL (9.4-12.3); Monocytes Absolute Auto 1.3 X10*3/uL (0.1-1.2); Neutrophils Absolute Auto 9.3 x10*3/uL (2.0-8.3); Platelet Count 574 X10*3/uL (160-400); Red Blood Count 3.37 X10*6/uL (4.20-5.50); Red Cell Distribution Width 14.2 % (11.0-16.0); White Blood Count 14.1 X10*3/uL (4.8-10.8)
--- NOTE | 2022-03-03 09:49 | P.PNIM_ITS ---
Subjective Subjective Date of Service: 03/03/22 Interval History: patient seen and examined at bedside. She had recurrent bleeding from the right lower extremity wound last night. She reports good pain control. Denies any dizziness, no headache, no shortness of breath, no abdominal pain nausea or vomiting, no diarrhea constipation, no urinary symptoms and And no chest pain. Patient is tolerating her food well, finished her breakfast, and is independent walking to the bathroom Review of Systems Review of Systems: Yes all other systems are reviewed and are negative Physical Exam Vital Signs: Vital Signs: Last Vital Signs Temp 97.6 F 03/03/22 07:33 Pulse 78 03/03/22 07:33 Resp 17 03/03/22 07:33 BP 142/82 H 03/03/22 07:33 Pulse Ox 96 03/03/22 07:33 O2 Del Method 03/03/22 07:33 BMI result Body Mass Index 36.2 Const: Other: Patient awake alert, oriented x3, no acute distress Resp: Other: clear to auscultation bilaterally Cardio: Other: normal rate and rhythm GI: Other: abdomen soft, nontender Neuro: Other: alert and Oriented x4 Extrem: Other: right lower extremity in dressing, dressing clean Objective Data Active Medications Acetaminophen (Acetaminophen 325 Mg Tablet) 650 mg PO Q6H PRN PRN Reason: Pain, Mild (Pain Scale 1-3) Last Admin: 03/02/22 12:32 Dose: 650 mg Documented By: SHANI Amlodipine Besylate (Amlodipine Besylate 10 Mg Tablet) 10 mg PO DAILY [facility]; Protocol Last Admin: 03/03/22 07:51 Dose: 10 mg Documented By: SHANI Atorvastatin Calcium (Atorvastatin Calcium 80 Mg Tablet) 80 mg PO DAILY [facility] Last Admin: 03/03/22 07:52 Dose: 80 mg Documented By: SHANI Dextrose (Dextrose 50 % 25 Gm/50 Ml Syringe) 25 gm IVPUSH Q15M PRN; Protocol PRN Reason: per Hypoglycemia Standing Ord. Docusate Sodium (Docusate Sodium 100 Mg Capsule) 200 mg PO DAILY [facility] Last Admin: 03/03/22 07:52 Dose: 200 mg Documented By: SHANI Enoxaparin Sodium (Enoxaparin Sodium 40 Mg/0.4 Ml Syringe) 40 mg SUBCUT Q24H [facility] Last Admin: 03/02/22 12:07 Dose: 40 mg Documented By: SHANI Gabapentin (Gabapentin 300 Mg Capsule) 300 mg PO TID [facility] Last Admin: 03/03/22 07:52 Dose: 300 mg Documented By: SHANI Glucose (Glucose Gel 15 Gm Gel..Gram.) 15 gm PO Q15M PRN; Protocol PRN Reason: per Hypoglycemia Standing Ord. Meropenem 1 gm/ Sodium (Chloride) 100 mls @ 200 mls/hr IV Q12H [facility] Last Infusion: 03/03/22 00:52 Dose: 0 mls/hr Documented By: TERESA Vancomycin HCl 1,250 mg/ (Sodium Chloride) 250 mls @ 166.667 mls/hr IV Q24H [facility] Last Infusion: 03/03/22 09:36 Dose: 0 mls/hr Documented By: SHANI Insulin Glargine (Insulin Glargine,Hum.Rec.Anlog 100 Unit/Ml 10 Ml Vial) 40 unit SUBCUT BEDTIME [facility] Last Admin: 03/02/22 21:05 Dose: 40 unit Documented By: TERESA Insulin Human Lispro (Insulin Lispro 100 Unit/Ml 3 Ml Vial) 0.1 - 10 unit SUBCUT QIDACHS [facility]; Protocol Last Admin: 03/03/22 07:52 Dose: 2 unit Documented By: SHANI Melatonin (Melatonin 3 Mg Tablet) 6 mg PO BEDTIME PRN PRN Reason: Insomnia Last Admin: 02/27/22 20:55 Dose: 6 mg Documented By: ELDER Morphine Sulfate (Morphine Sulfate 2 Mg/Ml Cartridge) 2 mg IVPUSH Q4H PRN; Protocol PRN Reason: Pain, Severe (Pain Scale 7-10) Last Admin: 03/03/22 06:18 Dose: 2 mg Documented By: TERESA Ondansetron HCl (Ondansetron Hcl 4 Mg/2 Ml Vial) 4 mg IVPUSH Q8H PRN PRN Reason: Nausea and Vomiting Last Admin: 02/27/22 00:43 Dose: 4 mg Documented By: CLAUDIAE Oxycodone HCl (Oxycodone Hcl Immed Release 5 Mg Tablet) 5 mg PO Q6H PRN PRN Reason: Pain, Moderate (Pain Scale 4-6 Last Admin: 03/02/22 05:38 Dose: 5 mg Documented By: CALLUM Pharmacy Consult (Consult Rx Vancomycin Dosing) 1 each MISCELLANE DAILY PRN PRN Reason: Consult order Polyethylene Glycol (Polyethylene Glycol 3350 17 Gm Powd.Pack) 17 gm PO DAILY [facility] Last Admin: 03/03/22 07:53 Dose: 17 gm Documented By: SHANI Sodium Chloride (0.9 % Sodium Chloride Flush 3 Ml Syringe) 3 ml IVFLUSH QSHIFT [facility] Last Admin: 03/03/22 07:52 Dose: 3 ml Documented By: SHANI Labs CBC & Chem 7: 03/03/22 05:59 03/03/22 05:59 Labs: Laboratory Results - last 24 hr 03/02/22 03/02/22 03/02/22 10:54 16:38 20:37 MCV MCH MCHC RDW Plt Count MPV Immature Gran % (Auto) Neut % (Auto) Lymph % (Auto) [place] % (Auto) Eos % (Auto) Baso % (Auto) Lymph # (Auto) [place] # (Auto) Eos # (Auto) Baso # (Auto) Abs Immat Gran (auto) Absolute Neuts (auto) Absolute Nucleated RBC Nucleated RBC % (auto) Anion Gap Estim Creat Clear Calc Estimated GFR POC Glucose 101 138 H 228 H Random Glucose Calcium Random Vancomycin 03/03/22 03/03/22 03/03/22 05:59 05:59 05:59 MCV MCH MCHC RDW Plt Count MPV Immature Gran % (Auto) Neut % (Auto) Lymph % (Auto) [place] % (Auto) Eos % (Auto) Baso % (Auto) Lymph # (Auto) [place] # (Auto) Eos # (Auto) Baso # (Auto) Abs Immat Gran (auto) Absolute Neuts (auto) Absolute Nucleated RBC Nucleated RBC % (auto) Anion Gap 15 Estim Creat Clear Calc 82.5 83.4 Estimated GFR > 60 > 60 POC Glucose Random Glucose 183 H Calcium 8.1 L Random Vancomycin 17.2 03/03/22 03/03/22 05:59 07:09 MCV 82.2 MCH 25.2 L MCHC 30.7 L RDW 14.2 Plt Count 574 H MPV 9.9 Immature Gran % (Auto) 0.4 Neut % (Auto) 66.0 Lymph % (Auto) 19.0 L [place] % (Auto) 9.0 Eos % (Auto) 4.5 H Baso % (Auto) 1.1 Lymph # (Auto) 2.7 [place] # (Auto) 1.3 H Eos # (Auto) 0.6 H Baso # (Auto) 0.2 Abs Immat Gran (auto) 0.06 H Absolute Neuts (auto) 9.3 H Absolute Nucleated RBC 0.000 Nucleated RBC % (auto) 0.0 Anion Gap Estim Creat Clear Calc Estimated GFR POC Glucose 164 H Random Glucose Calcium Random Vancomycin Assessment and Plan (1) Cellulitis of right foot: Status: Acute (2) AMY (acute kidney injury): Status: Acute (3) Diabetic infection of right foot: Status: Acute (4) Chronic osteomyelitis of right foot: Status: Acute Plan 51-year-old female with pertinent history of insulin-dependent diabetes mellitus with neuropathy, essential hypertension, peripheral vascular disease with history of left transmetatarsal amputation and chronic osteomyelitis of the right foot who was sent to the emergency department by [facility] for evaluation of right foot wounds. # Diabetic foot infection with infected non-healing wound with cellulitis and chronic right foot osteomyelitis - acute on chronic osteomyelitis of right foot with acute cellulitis - cultures negative to date - will continue IV meropenem and vancomycin day 4 - Continue daily dressing and pain management - Patient is scheduled for right BKA by vascular surgery on 03/04, will make NPO Friday - Dr. Garves agree with BKA since patient has chronic osteomyelitis less likely to respond to IV antibiotics # Acute kidney injury likely pre renal renal function improved s/p IV hydration, - continue to follow bmp while on vanco #Insulin-dependent diabetes mellitus with hyperglycemia - continue diabetic diet insulin sliding scale and Lantus, - diabetic diet - POC a.c. HS - stable blood sugars # PAD - likely contributing to her nonhealing wounds - continue aspirin and statin # HTN - stable, continue Norvasc # CHFpEF - compensated. - Not on home lasix, will follow clinical course # constipation - result - continue stool softeners DVT prophylaxis: On Lovenox will hold prior to surgery disposition: Will undergo BKA on 03/04 Patient need continued inpatient hospitalization for nonhealing diabetic right foot wound currently on IV antibiotic will need BKA. Quality Stroke Does the patient have a stroke diagnosis?: No VTE Prior VTE?: No VTE Risk Level:: Medical - moderate - high VTE Device Contraindication: Treatment Not Indicated VTE Drug Contraindication: Treatment Not Indicated
[2022-03-03 11:39] LABS: Glucose, Whole Blood 129 mg/dL (60-115)
[2022-03-03] MEDS: Acetaminophen 325 MG TABLET 650 MG PO (11:43)
[2022-03-03] MEDS: Enoxaparin Sodium 40 MG/0.4 ML SYRINGE SUBCUT (12:43)
[2022-03-03 15:56] LABS: Glucose, Whole Blood 219 mg/dL (60-115)
[2022-03-03 19:52] LABS: Glucose, Whole Blood 176 mg/dL (60-115)
[2022-03-03] MEDS: Insulin Glargine,Hum.rec.anlog 100 UNIT/ML 10 ML VIAL 40 UNIT SUBCUT (20:11)
[2022-03-03] MEDS: oxyCODONE HCl Immed Release 5 MG TABLET PO (20:35)
[2022-03-04] VITALS (21 sets, daily range): BP systolic 132–160; BP diastolic 62–82; PULSE 73–79; RESP 12–20; TEMP 36.1–37.1; O2SAT 91–98
[2022-03-04] MEDS: Morphine Sulfate 2 MG/ML CARTRIDGE IVPUSH ×4 (00:01→23:26)
[2022-03-04] MEDS: oxyCODONE HCl Immed Release 5 MG TABLET PO ×2 (06:10→18:34)
[2022-03-04 07:30] LABS: Glucose, Whole Blood 74 mg/dL (60-115)
--- NOTE | 2022-03-04 07:38 | MHC.SHP ---
Pre-Procedural Eval Section A Date of Service: 03/04/22 The patient is an INPATIENT: No Changes since office visit: Yes Patient answered all questions The History & Physical has been completed within 30 days and I have reviewed it.: Yes Section B Chief Complaint: Infected wound Allergies: Allergies Allergy/AdvReac Type Severity Reaction Status Date / Time No Known Allergies Allergy Verified 01/18/22 11:19 [No Known Allergies*] Plan I have reviewed the history and physical and performed a pertinent physical examination on my patient. No changes have occurred unless specified.
[2022-03-04] MEDS: Acetaminophen 325 MG TABLET 650 MG PO ×2 (08:07→18:34)
[2022-03-04] MEDS: amLODIPine Besylate 10 MG TABLET PO (08:07)
[2022-03-04] MEDS: Gabapentin 300 MG CAPSULE PO ×3 (08:08→19:43)
[2022-03-04] MEDS: Atorvastatin Calcium 80 MG TABLET PO (08:08)
[2022-03-04] MEDS: Docusate Sodium 100 MG CAPSULE 200 MG PO (08:08)
[2022-03-04] MEDS: 0.9 % Sodium Chloride Flush 3 ML SYRINGE IVFLUSH (08:09)
[2022-03-04] MEDS: vancomycin HCL 1,250 MG in 0.9 % Sodium Chloride 250 ML 166.67 MG IV (08:09)
[2022-03-04] MEDS: Dextrose 5 % and Lactated Ring 1,000 ML 50 ML IVCONT (08:09)
[2022-03-04 08:22] LABS: Creatinine Clr Calc Pharmacy 92.2; Estimated Glomerular Filt Rate > 60
[2022-03-04 08:49] LABS: Glucose, Whole Blood 86 mg/dL (60-115)
--- NOTE | 2022-03-04 09:54 | P.CONAN_ITS ---
[facility] Active Problems Active Problems: All Active Problems (Updated 03/02/22 @ 11:32 by Vincent Elizabeth MD) Cellulitis of right foot (Acute) AMY (acute kidney injury) (Acute) Insulin dependent diabetes mellitus (Acute) Chronic osteomyelitis of right foot (Acute) Current mild episode of major depressive disorder (Acute) Vitamin D deficiency (Acute) Vitamin B1 deficiency (Acute) BMI 38.0-38.9,adult (Acute) Elevated erythrocyte sedimentation rate (Acute) Diabetic infection of right foot (Acute) Diabetic foot infection (Acute) Vitamin B12 deficiency (Acute) Hyperlipidemia (Acute) BMI 39.0-39.9,adult (Acute) Obesity (Acute) Chronic heart failure with preserved ejection fraction (HFpEF) (Acute) VRE (vancomycin resistant enterococcus) culture positive (Acute) Past Medical History Medical History Abscess Amputated toe of left foot Amputation of left foot BMI 39.0-39.9,adult Chronic heart failure with preserved ejection fraction (HFpEF) Chronic osteomyelitis of foot Diabetes Diabetic foot infection Diabetic foot ulcer with osteomyelitis Hyperlipidemia Hypertension Insulin dependent diabetes mellitus Neuropathy Obesity Osteomyelitis Osteomyelitis PAD (peripheral artery disease) Type 2 diabetes mellitus with unspecified complications Vitamin B12 deficiency VRE (vancomycin resistant enterococcus) culture positive Family History Family History Mother Diabetes Hypertension Disk prolapse Father Diabetes Hypertension Sister No problems noted. Brother No problems noted. Daughter No problems noted. Son No problems noted. Family history of problems with anesthesia: No Surgical History Surgical History H/O spinal fusion History of amputation of left foot History of section History of tubal ligation Status post amputation of toe of right foot History of Problems with Anesthesia: No Social History Social History Household Members: Spouse Household Members Other:: Housing: Apartment Do you presently have visiting nurse or other home services: Yes Alcohol intake: never Patient Tobacco Use Status: Never used Tobacco e-Cigarette/Vaping Use: Never Used Second Hand Smoke Exposure: No Use of substances other than those prescribed or required for medical reasons: No Currently Displaying Signs/Symptoms of Drug Intoxication Withdrawal: No Have you been hit, kicked, punched, or otherwise hurt by someone within the past year? If so, by whom?: No Do you feel safe in your current relationship?: No Is there a partner from a previous relationship who is making you feel unsafe now?: No Are you made to feel afraid or neglected: No Advance Directives: Yes Advance Directives on File: Yes Advance Directives Date on File: 02/15/21 Do you have thoughts of harming others: None Do you have a plan to hurt others: No Plan Recently lost weight without trying: No How much weight loss: Not applicable Eating poorly because of decreased appetite: No Nutrition screen score: 0 Nutrition Risks: No Nutritional Risk Patient : No : No Poor oral hygiene: No service: No Current occupational status: unemployed Meds Allergies Allergy/AdvReac Type Severity Reaction Status Date / Time No Known Allergies Allergy Verified 01/18/22 11:19 [No Known Allergies*] Active Medications: Current Medications Acetaminophen (Acetaminophen 325 Mg Tablet) 650 mg PO Q6H PRN PRN Reason: Pain, Mild (Pain Scale 1-3) Last Admin: 03/04/22 08:07 Dose: 650 mg Amlodipine Besylate (Amlodipine Besylate 10 Mg Tablet) 10 mg PO DAILY [facility]; Protocol Last Admin: 03/04/22 08:07 Dose: 10 mg Atorvastatin Calcium (Atorvastatin Calcium 80 Mg Tablet) 80 mg PO DAILY [facility] Last Admin: 03/04/22 08:08 Dose: 80 mg Dextrose (Dextrose 50 % 25 Gm/50 Ml Syringe) 25 gm IVPUSH Q15M PRN; Protocol PRN Reason: per Hypoglycemia Standing Ord. Docusate Sodium (Docusate Sodium 100 Mg Capsule) 200 mg PO DAILY [facility] Last Admin: 03/04/22 08:08 Dose: 200 mg Gabapentin (Gabapentin 300 Mg Capsule) 300 mg PO TID [facility] Last Admin: 03/04/22 08:08 Dose: 300 mg Glucose (Glucose Gel 15 Gm Gel..Gram.) 15 gm PO Q15M PRN; Protocol PRN Reason: per Hypoglycemia Standing Ord. Meropenem 1 gm/ Sodium (Chloride) 100 mls @ 200 mls/hr IV Q12H [facility] Last Infusion: 03/04/22 00:37 Dose: Infused Vancomycin HCl 1,250 mg/ (Sodium Chloride) 250 mls @ 166.667 mls/hr IV Q24H [facility] Last Admin: 03/04/22 08:09 Dose: 166.67 mls/hr Dextrose/Lactated Ringer's (D5lr) 1,000 mls @ 50 mls/hr IVCONT .Q20H [facility] Last Admin: 03/04/22 08:09 Dose: 50 mls/hr Insulin Glargine (Insulin Glargine,Hum.Rec.Anlog 100 Unit/Ml 10 Ml Vial) 40 unit SUBCUT BEDTIME [facility] Last Admin: 03/03/22 20:11 Dose: 40 unit Insulin Human Lispro (Insulin Lispro 100 Unit/Ml 3 Ml Vial) 0.1 - 10 unit SUBCUT QIDACHS [facility]; Protocol Last Admin: 03/04/22 07:32 Dose: Not Given Melatonin (Melatonin 3 Mg Tablet) 6 mg PO BEDTIME PRN PRN Reason: Insomnia Last Admin: 02/27/22 20:55 Dose: 6 mg Morphine Sulfate (Morphine Sulfate 2 Mg/Ml Cartridge) 2 mg IVPUSH Q4H PRN; Protocol PRN Reason: Pain, Severe (Pain Scale 7-10) Ondansetron HCl (Ondansetron Hcl 4 Mg/2 Ml Vial) 4 mg IVPUSH Q8H PRN PRN Reason: Nausea and Vomiting Last Admin: 02/27/22 00:43 Dose: 4 mg Oxycodone HCl (Oxycodone Hcl Immed Release 5 Mg Tablet) 5 mg PO Q6H PRN PRN Reason: Pain, Moderate (Pain Scale 4-6 Last Admin: 03/04/22 06:10 Dose: 5 mg Pharmacy Consult (Consult Rx Vancomycin Dosing) 1 each MISCELLANE DAILY PRN PRN Reason: Consult order Polyethylene Glycol (Polyethylene Glycol 3350 17 Gm Powd.Pack) 17 gm PO DAILY [facility] Last Admin: 03/04/22 07:59 Dose: Not Given Sodium Chloride (0.9 % Sodium Chloride Flush 3 Ml Syringe) 3 ml IVFLUSH QSHIFT [facility] Last Admin: 03/04/22 08:09 Dose: 3 ml Home Medications Medication Instructions Recorded Confirmed Last Taken Type amlodipine 10 mg tablet 1 tab PO DAILY 03/19/20 02/27/22 02/26/22 History gabapentin 300 mg capsule 1 cap PO TID 03/19/20 02/27/22 02/26/22 History insulin aspart U-100 100 unit/mL 25 unit subcut TIDAC 03/19/20 02/27/22 02/26/22 History subcutaneous solution (Novolog U-100 Insulin aspart) aspirin 81 mg chewable tablet 81 mg PO DAILY 06/17/21 02/27/22 02/26/22 History blood-glucose meter (FreeStyle #1 ea 07/03/21 02/26/22 History Clearwater Lite kit) insulin glargine 100 unit/mL 90 unit subcut BEDTIME 09/13/21 02/27/22 02/26/22 History subcutaneous solution (Lantus U-100 Insulin) atorvastatin 80 mg tablet 80 mg PO DAILY 11/29/21 02/27/22 02/26/22 History dulaglutide 0.75 mg/0.5 mL 0.75 mg subcut TU@1000 02/05/22 02/27/22 02/26/22 History subcutaneous pen injector (Trulicity) naproxen 500 mg tablet 500 mg PO BID PRN Headache 02/05/22 02/27/22 02/26/22 History urea 20 % topical cream 1 appl topical DAILY 02/05/22 02/27/22 02/26/22 History Exam Exam Date and Time: March 04, 2022 0954 Height,Weight and Vital Signs: Height 5 ft 2 in Weight 89.811 kg Last Vital Signs Temp 98.2 F 03/04/22 07:28 Pulse 79 03/04/22 07:28 Resp 18 03/04/22 07:28 BP 160/82 H 03/04/22 07:28 Pulse Ox 94 03/04/22 07:28 O2 Del Method 03/04/22 07:28 Pertinent Lab Results Pertinent Lab Results: Laboratory Tests 02/26/22 02/26/22 02/26/22 11:58 11:58 22:32 WBC 19.3 H RBC 3.49 L Hgb 8.8 L Hct 28.3 L MCV 81.1 MCH 25.2 L MCHC 31.1 RDW 13.8 Plt Count 711 H MPV 9.1 L Immature Gran % (Auto) 0.5 H Neut % (Auto) 67.2 Lymph % (Auto) 19.6 L [place] % (Auto) 8.0 Eos % (Auto) 3.9 Baso % (Auto) 0.8 Lymph # (Auto) 3.8 [place] # (Auto) 1.5 H Eos # (Auto) 0.8 H Baso # (Auto) 0.2 Abs Immat Gran (auto) 0.09 H Absolute Neuts (auto) 13.0 H Absolute Nucleated RBC 0.000 Nucleated RBC % (auto) 0.0 Smear Tech's Comments VERIFIED Sodium 140 Potassium 4.0 Chloride 103 Carbon Dioxide 22 Anion Gap 19 BUN 16 Creatinine 1.71 H Estim Creat Clear Calc 41.0 Estimated GFR 32 POC Glucose 279 H Random Glucose 120 H Lactic Acid Calcium 8.7 D Vancomycin Trough Random Vancomycin COVID-19 ([facility]ATA) COVID-19 Clin Com Blood Type Antibody Screen Crossmatch 02/26/22 02/26/22 02/27/22 23:37 23:37 01:02 WBC RBC Hgb Hct MCV MCH MCHC RDW Plt Count MPV Immature Gran % (Auto) Neut % (Auto) Lymph % (Auto) [place] % (Auto) Eos % (Auto) Baso % (Auto) Lymph # (Auto) [place] # (Auto) Eos # (Auto) Baso # (Auto) Abs Immat Gran (auto) Absolute Neuts (auto) Absolute Nucleated RBC Nucleated RBC % (auto) Smear Tech's Comments Sodium Potassium Chloride Carbon Dioxide Anion Gap BUN Creatinine Estim Creat Clear Calc Estimated GFR POC Glucose 257 H Random Glucose Lactic Acid 1.1 Calcium Vancomycin Trough Random Vancomycin COVID-19 (CHATA) Negative COVID-[facility] See Note Blood Type Antibody Screen Crossmatch 02/27/22 02/27/22 02/27/22 06:28 06:28 07:13 WBC 17.6 H RBC 3.60 L Hgb 8.9 L Hct 29.7 L MCV 82.5 MCH 24.7 L MCHC 30.0 L RDW 13.9 Plt Count 745 H MPV 9.4 Immature Gran % (Auto) 0.5 H Neut % (Auto) 73.4 H Lymph % (Auto) 13.6 L [place] % (Auto) 8.3 Eos % (Auto) 3.6 Baso % (Auto) 0.6 Lymph # (Auto) 2.4 [place] # (Auto) 1.5 H Eos # (Auto) 0.6 H Baso # (Auto) 0.1 Abs Immat Gran (auto) 0.09 H Absolute Neuts (auto) 12.9 H Absolute Nucleated RBC 0.000 Nucleated RBC % (auto) 0.0 Smear Tech's Comments Sodium 141 Potassium 4.3 Chloride 105 Carbon Dioxide 23 Anion Gap 17 BUN 13 Creatinine 1.31 Estim Creat Clear Calc 53.5 Estimated GFR 43 POC Glucose 135 H Random Glucose 156 H Lactic Acid Calcium 8.5 Vancomycin Trough Random Vancomycin COVID-19 (CHATA) [facility] Blood Type Antibody Screen Crossmatch 02/27/22 02/27/22 02/27/22 11:43 16:51 20:34 WBC RBC Hgb Hct MCV MCH MCHC RDW Plt Count MPV Immature Gran % (Auto) Neut % (Auto) Lymph % (Auto) [place] % (Auto) Eos % (Auto) Baso % (Auto) Lymph # (Auto) [place] # (Auto) Eos # (Auto) Baso # (Auto) Abs Immat Gran (auto) Absolute Neuts (auto) Absolute Nucleated RBC Nucleated RBC % (auto) Smear Tech's Comments Sodium Potassium Chloride Carbon Dioxide Anion Gap BUN Creatinine Estim Creat Clear Calc Estimated GFR POC Glucose 103 104 161 H Random Glucose Lactic Acid Calcium Vancomycin Trough Random Vancomycin COVID-19 (CHATA) COVVelociData [facility] Blood Type Antibody Screen Crossmatch 02/28/22 02/28/22 02/28/22 03:19 07:09 07:39 WBC RBC Hgb Hct MCV MCH MCHC RDW Plt Count MPV Immature Gran % (Auto) Neut % (Auto) Lymph % (Auto) [place] % (Auto) Eos % (Auto) Baso % (Auto) Lymph # (Auto) [place] # (Auto) Eos # (Auto) Baso # (Auto) Abs Immat Gran (auto) Absolute Neuts (auto) Absolute Nucleated RBC Nucleated RBC % (auto) Smear Tech's Comments Sodium Potassium Chloride Carbon Dioxide Anion Gap BUN Creatinine 0.95 Estim Creat Clear Calc 73.8 Estimated GFR > 60 POC Glucose 85 85 Random Glucose Lactic Acid Calcium Vancomycin Trough Random Vancomycin COVID-19 (CHATA) [id number] [facility] Blood Type Antibody Screen Crossmatch 02/28/22 02/28/22 02/28/22 13:18 15:09 19:34 WBC RBC Hgb Hct MCV MCH MCHC RDW Plt Count MPV Immature Gran % (Auto) Neut % (Auto) Lymph % (Auto) [place] % (Auto) Eos % (Auto) Baso % (Auto) Lymph # (Auto) [place] # (Auto) Eos # (Auto) Baso # (Auto) Abs Immat Gran (auto) Absolute Neuts (auto) Absolute Nucleated RBC Nucleated RBC % (auto) Smear Tech's Comments Sodium Potassium Chloride Carbon Dioxide Anion Gap BUN Creatinine Estim Creat Clear Calc Estimated GFR POC Glucose 88 117 H 178 H Random Glucose Lactic Acid Calcium Vancomycin Trough Random Vancomycin COVID-19 (CHATA) [facility] Blood Type Antibody Screen Crossmatch 03/01/22 03/01/22 03/01/22 05:18 05:18 07:16 WBC RBC Hgb Hct MCV MCH MCHC RDW Plt Count MPV Immature Gran % (Auto) Neut % (Auto) Lymph % (Auto) [place] % (Auto) Eos % (Auto) Baso % (Auto) Lymph # (Auto) [place] # (Auto) Eos # (Auto) Baso # (Auto) Abs Immat Gran (auto) Absolute Neuts (auto) Absolute Nucleated RBC Nucleated RBC % (auto) Smear Tech's Comments Sodium Potassium Chloride Carbon Dioxide Anion Gap BUN Creatinine 0.82 Estim Creat Clear Calc 85.4 Estimated GFR > 60 POC Glucose 79 Random Glucose Lactic Acid Calcium Vancomycin Trough 10.9 Random Vancomycin COVID-19 (CHATA) [id number] [facility] Blood Type Antibody Screen Crossmatch 03/01/22 03/01/22 03/01/22 11:20 16:09 20:01 WBC RBC Hgb Hct MCV MCH MCHC RDW Plt Count MPV Immature Gran % (Auto) Neut % (Auto) Lymph % (Auto) [place] % (Auto) Eos % (Auto) Baso % (Auto) Lymph # (Auto) [place] # (Auto) Eos # (Auto) Baso # (Auto) Abs Immat Gran (auto) Absolute Neuts (auto) Absolute Nucleated RBC Nucleated RBC % (auto) Smear Tech's Comments Sodium Potassium Chloride Carbon Dioxide Anion Gap BUN Creatinine Estim Creat Clear Calc Estimated GFR POC Glucose 84 172 H 174 H Random Glucose Lactic Acid Calcium Vancomycin Trough Random Vancomycin COVID-19 (CHATA) [id number] [facility] Blood Type Antibody Screen Crossmatch 03/02/22 03/02/22 03/02/22 02:05 05:14 07:23 WBC RBC Hgb 8.7 L Hct 28.2 L MCV MCH MCHC RDW Plt Count MPV Immature Gran % (Auto) Neut % (Auto) Lymph % (Auto) [place] % (Auto) Eos % (Auto) Baso % (Auto) Lymph # (Auto) [place] # (Auto) Eos # (Auto) Baso # (Auto) Abs Immat Gran (auto) Absolute Neuts (auto) Absolute Nucleated RBC Nucleated RBC % (auto) Smear Tech's Comments Sodium Potassium Chloride Carbon Dioxide Anion Gap BUN Creatinine 0.80 Estim Creat Clear Calc 87.6 Estimated GFR > 60 POC Glucose 120 H Random Glucose Lactic Acid Calcium Vancomycin Trough Random Vancomycin COVID-19 (CHATA) [id number] Blood Type Antibody Screen Crossmatch 03/02/22 03/02/22 03/02/22 10:54 16:38 20:37 WBC RBC Hgb Hct MCV MCH MCHC RDW Plt Count MPV Immature Gran % (Auto) Neut % (Auto) Lymph % (Auto) [place] % (Auto) Eos % (Auto) Baso % (Auto) Lymph # (Auto) [place] # (Auto) Eos # (Auto) Baso # (Auto) Abs Immat Gran (auto) Absolute Neuts (auto) Absolute Nucleated RBC Nucleated RBC % (auto) Smear Tech's Comments Sodium Potassium Chloride Carbon Dioxide Anion Gap BUN Creatinine Estim Creat Clear Calc Estimated GFR POC Glucose 101 138 H 228 H Random Glucose Lactic Acid Calcium Vancomycin Trough Random Vancomycin COVID-19 (CHATA) [facility] Blood Type Antibody Screen Crossmatch 03/03/22 03/03/22 03/03/22 05:59 05:59 05:59 WBC RBC Hgb Hct MCV MCH MCHC RDW Plt Count MPV Immature Gran % (Auto) Neut % (Auto) Lymph % (Auto) [place] % (Auto) Eos % (Auto) Baso % (Auto) Lymph # (Auto) [place] # (Auto) Eos # (Auto) Baso # (Auto) Abs Immat Gran (auto) Absolute Neuts (auto) Absolute Nucleated RBC Nucleated RBC % (auto) Smear Tech's Comments Sodium 141 Potassium 4.2 Chloride 105 Carbon Dioxide 25 Anion Gap 15 BUN 10 Creatinine 0.85 0.84 Estim Creat Clear Calc 82.5 83.4 Estimated GFR > 60 > 60 POC Glucose Random Glucose 183 H Lactic Acid Calcium 8.1 L Vancomycin Trough Random Vancomycin 17.2 COVID-19 (CHATA) [facility] Blood Type Antibody Screen Crossmatch 03/03/22 03/03/22 03/03/22 05:59 07:09 11:03 WBC 14.1 H RBC 3.37 L Hgb 8.5 L Hct 27.7 L MCV 82.2 MCH 25.2 L MCHC 30.7 L RDW 14.2 Plt Count 574 H MPV 9.9 Immature Gran % (Auto) 0.4 Neut % (Auto) 66.0 Lymph % (Auto) 19.0 L [place] % (Auto) 9.0 Eos % (Auto) 4.5 H Baso % (Auto) 1.1 Lymph # (Auto) 2.7 [place] # (Auto) 1.3 H Eos # (Auto) 0.6 H Baso # (Auto) 0.2 Abs Immat Gran (auto) 0.06 H Absolute Neuts (auto) 9.3 H Absolute Nucleated RBC 0.000 Nucleated RBC % (auto) 0.0 Smear Tech's Comments Sodium Potassium Chloride Carbon Dioxide Anion Gap BUN Creatinine Estim Creat Clear Calc Estimated GFR POC Glucose 164 H 129 H Random Glucose Lactic Acid Calcium Vancomycin Trough Random Vancomycin COVID-19 (CHATA) COVID-[facility] Blood Type Antibody Screen Crossmatch 03/03/22 03/03/22 03/03/22 15:18 16:11 19:23 WBC RBC Hgb Hct MCV MCH MCHC RDW Plt Count MPV Immature Gran % (Auto) Neut % (Auto) Lymph % (Auto) [place] % (Auto) Eos % (Auto) Baso % (Auto) Lymph # (Auto) [place] # (Auto) Eos # (Auto) Baso # (Auto) Abs Immat Gran (auto) Absolute Neuts (auto) Absolute Nucleated RBC Nucleated RBC % (auto) Smear Tech's Comments Sodium Potassium Chloride Carbon Dioxide Anion Gap BUN Creatinine Estim Creat Clear Calc Estimated GFR POC Glucose 219 H 176 H Random Glucose Lactic Acid Calcium Vancomycin Trough Random Vancomycin COVID-19 (CHATA) COVID-19 [facility] Blood Type A Positive Antibody Screen NEGATIVE Crossmatch See Detail 03/04/22 03/04/22 03/04/22 05:57 07:24 08:44 WBC RBC Hgb Hct MCV MCH MCHC RDW Plt Count MPV Immature Gran % (Auto) Neut % (Auto) Lymph % (Auto) [place] % (Auto) Eos % (Auto) Baso % (Auto) Lymph # (Auto) [place] # (Auto) Eos # (Auto) Baso # (Auto) Abs Immat Gran (auto) Absolute Neuts (auto) Absolute Nucleated RBC Nucleated RBC % (auto) Smear Tech's Comments Sodium Potassium Chloride Carbon Dioxide Anion Gap BUN Creatinine 0.76 Estim Creat Clear Calc 92.2 Estimated GFR > 60 POC Glucose 74 86 Random Glucose Lactic Acid Calcium Vancomycin Trough Random Vancomycin COVID-19 (CHATA) COVID-19 Clin Com Blood Type Antibody Screen Crossmatch Airway Mallampati Class: III (chipped upper central incisor) TM Dist: >3cm Neck ROM: Full Loose/Missing/Broken Teeth: Yes (chipped upper central incisor) Heart: RRR Lungs: CTA Assessment and Plan Final Anesthetic Review Family History of Problems with Anesthesia: No History of Problems with Anesthesia: No ASA Class: III Final Preanesthetic Review: Meds/Allgs Chart Reviewed, Consent Obtained/Reviewed and Anes Risks/Benef Reviewed Patient Risk: Intermediate Procedure Risk: Low Anesthetic Plan Anesthetic Plan: GA Disposition: Standard PACU
--- NOTE | 2022-03-04 10:04 | HO.PM.IMPN ---
Subjective Subjective Date of Service: 03/04/22 Interval History: scheduled for right BKA is NPO complaining of right foot pain, denies headache, dizziness no fevers no chills, blood sugar 74, mother and at bedside, no other acute issues overnight Review of Systems CVS no chest pain no palpitation Respiratory no cough, no shortness of breath no urgency, no frequency Review of Systems: Yes all other systems are reviewed and are negative Physical Exam Vital Signs: Vital Signs: Last Vital Signs Temp 98.2 F 03/04/22 07:28 Pulse 79 03/04/22 07:28 Resp 18 03/04/22 07:28 BP 160/82 H 03/04/22 07:28 Pulse Ox 94 03/04/22 07:28 O2 Del Method 03/04/22 07:28 BMI result Body Mass Index 36.2 Const: Other: General, awake alert x3 in no acute distress? Neck supple, no JVD CVS Regular rate and rhythm, S1-S2 heard Respiratory Regular breath sounds bilaterally, no wheezing , no rhonchi Abdomen soft nontender, no guarding, no rigidity Neuro awake alert x3 speech clear Extremities status post left TMA, Right foot wound mid foot with no drainage, with surrounding erythema, warmth extending upward towards right leg Psych: Normal mood Objective Data Active Medications Acetaminophen (Acetaminophen 325 Mg Tablet) 650 mg PO Q6H PRN PRN Reason: Pain, Mild (Pain Scale 1-3) Last Admin: 03/04/22 08:07 Dose: 650 mg Documented By: COTEMA Amlodipine Besylate (Amlodipine Besylate 10 Mg Tablet) 10 mg PO DAILY [facility]; Protocol Last Admin: 03/04/22 08:07 Dose: 10 mg Documented By: COTEMA Atorvastatin Calcium (Atorvastatin Calcium 80 Mg Tablet) 80 mg PO DAILY [facility] Last Admin: 03/04/22 08:08 Dose: 80 mg Documented By: COTEMA Dextrose (Dextrose 50 % 25 Gm/50 Ml Syringe) 25 gm IVPUSH Q15M PRN; Protocol PRN Reason: per Hypoglycemia Standing Ord. Docusate Sodium (Docusate Sodium 100 Mg Capsule) 200 mg PO DAILY [facility] Last Admin: 03/04/22 08:08 Dose: 200 mg Documented By: COTEMA Gabapentin (Gabapentin 300 Mg Capsule) 300 mg PO TID [facility] Last Admin: 03/04/22 08:08 Dose: 300 mg Documented By: CARMITA Glucose (Glucose Gel 15 Gm Gel..Gram.) 15 gm PO Q15M PRN; Protocol PRN Reason: per Hypoglycemia Standing Ord. Meropenem 1 gm/ Sodium (Chloride) 100 mls @ 200 mls/hr IV Q12H [facility] Last Infusion: 03/04/22 00:37 Dose: 0 mls/hr Documented By: GHASSAN Vancomycin HCl 1,250 mg/ (Sodium Chloride) 250 mls @ 166.667 mls/hr IV Q24H [facility] Last Infusion: 03/04/22 10:03 Dose: 0 mls/hr Documented By: CARMITA Dextrose/Lactated Ringer's (D5lr) 1,000 mls @ 50 mls/hr IVCONT .Q20H [facility] Last Admin: 03/04/22 08:09 Dose: 50 mls/hr Documented By: CARMITA Insulin Glargine (Insulin Glargine,Hum.Rec.Anlog 100 Unit/Ml 10 Ml Vial) 40 unit SUBCUT BEDTIME [facility] Last Admin: 03/03/22 20:11 Dose: 40 unit Documented By: GHASSAN Insulin Human Lispro (Insulin Lispro 100 Unit/Ml 3 Ml Vial) 0.1 - 10 unit SUBCUT QIDACHS [facility]; Protocol Last Admin: 03/04/22 07:32 Dose: Not Given Documented By: CARMITA Non-Admin Reason: No Insulin Coverage Melatonin (Melatonin 3 Mg Tablet) 6 mg PO BEDTIME PRN PRN Reason: Insomnia Last Admin: 02/27/22 20:55 Dose: 6 mg Documented By: FIDEPE Morphine Sulfate (Morphine Sulfate 2 Mg/Ml Cartridge) 2 mg IVPUSH Q4H PRN; Protocol PRN Reason: Pain, Severe (Pain Scale 7-10) Ondansetron HCl (Ondansetron Hcl 4 Mg/2 Ml Vial) 4 mg IVPUSH Q8H PRN PRN Reason: Nausea and Vomiting Last Admin: 02/27/22 00:43 Dose: 4 mg Documented By: PASCALE-GERI Oxycodone HCl (Oxycodone Hcl Immed Release 5 Mg Tablet) 5 mg PO Q6H PRN PRN Reason: Pain, Moderate (Pain Scale 4-6 Last Admin: 03/04/22 06:10 Dose: 5 mg Documented By: GHASSAN Pharmacy Consult (Consult Rx Vancomycin Dosing) 1 each MISCELLANE DAILY PRN PRN Reason: Consult order Polyethylene Glycol (Polyethylene Glycol 3350 17 Gm Powd.Pack) 17 gm PO DAILY [facility] Last Admin: 03/04/22 07:59 Dose: Not Given Documented By: CARMITA Non-Admin Reason: NPO Sodium Chloride (0.9 % Sodium Chloride Flush 3 Ml Syringe) 3 ml IVFLUSH QSHIFT [facility] Last Admin: 03/04/22 08:09 Dose: 3 ml Documented By: CARMITA Labs CBC & Chem 7: 03/03/22 05:59 03/04/22 05:57 Labs: Laboratory Results - last 24 hr 03/03/22 03/03/22 03/03/22 11:03 15:18 16:11 Estim Creat Clear Calc Estimated GFR POC Glucose 129 H 219 H Blood Type A Positive Antibody Screen NEGATIVE Crossmatch See Detail 03/03/22 03/04/22 03/04/22 19:23 05:57 07:24 Estim Creat Clear Calc 92.2 Estimated GFR > 60 POC Glucose 176 H 74 Blood Type Antibody Screen Crossmatch 03/04/22 08:44 Estim Creat Clear Calc Estimated GFR POC Glucose 86 Blood Type Antibody Screen Crossmatch Microbiology Microbiology Results: Microbiology 02/26/22 23:54 Blood Culture - Final Blood - Venous No growth after 5 days. 02/26/22 23:54 Blood Culture - Final Blood - Venous No growth after 5 days. Assessment and Plan (1) Cellulitis of right foot: Status: Acute (2) AMY (acute kidney injury): Status: Acute (3) Diabetic infection of right foot: Status: Acute (4) Chronic osteomyelitis of right foot: Status: Acute Plan 51-year-old female with pertinent history of insulin-dependent diabetes mellitus with neuropathy, essential hypertension, peripheral vascular disease with history of left transmetatarsal amputation and chronic osteomyelitis of the right foot who was sent to the emergency department by [facility] for evaluation of right foot wounds. # Diabetic foot infection with infected non-healing wound with cellulitis and chronic right foot osteomyelitis - acute on chronic osteomyelitis of right foot with acute cellulitis - blood cultures negative , WBC trending down - will continue IV meropenem and vancomycin day 5 - Continue daily dressing and pain management - right BKA scheduled for today, resume IV morphine and continue oxycodone for pain control # Acute kidney injury likely pre renal renal function improved s/p IV hydration, - continue to follow bmp while on vanco #Insulin-dependent diabetes mellitus with hyperglycemia - continue diabetic diet insulin sliding scale and Lantus, - diabetic diet, follow POC a.c. HS, blood sugar 74 this morning receive Lantus last night will place on IV fluids # PAD - likely contributing to her nonhealing wounds, continue aspirin and statin # HTN - stable, continue Norvasc # CHFpEF - compensated. - Not on home lasix, will follow clinical course # constipation - result - continue stool softeners DVT prophylaxis: On Lovenox will hold prior to surgery Patient need continued inpatient hospitalization for nonhealing diabetic right foot wound currently on IV antibiotic will need BKA. Quality Stroke Does the patient have a stroke diagnosis?: No VTE Prior VTE?: No VTE Risk Level:: Medical - moderate - high VTE Device Contraindication: Treatment Not Indicated VTE Drug Contraindication: Treatment Not Indicated
[2022-03-04 10:32] LABS: Glucose, Whole Blood 72 mg/dL (60-115)
[2022-03-04 11:17] LABS: Glucose, Whole Blood 68 mg/dL (60-115)
[2022-03-04] MEDS: Dextrose 50 % 25 GM/50 ML SYRINGE IVPUSH (11:18)
[2022-03-04 12:26] LABS: Glucose, Whole Blood 118 mg/dL (60-115)
--- NOTE | 2022-03-04 13:46 | HE.PHANOTE ---
VANCO DOSING BASED MORNING LABS DOSE CONTINUED FOR 1250Q 24H. NEXT TROUGH 03/05 AT 0600
--- NOTE | 2022-03-04 14:35 | W.PM.OPN ---
Operative Note Operative Note Date of Service: 03/04/22 Narrative: Operative note by [facility] Preoperative diagnosis:1. Nonhealing right foot ulcer 2. Chronic osteomyelitis Postoperative diagnosis: Same Procedure: 1. Right below-knee amputation 2. Myodesis Surgeon:John Peguero M.D. Piece Jobber: Omari Anesthesia: General Specimens: 1 Drains: None Estimated blood loss: 100 mL Indications: Poorly controlled 51-year-old diabetic presents for recurrent nonhealing right foot ulceration. There has been several attempts at conservative management. Due to the location of the ulcer of the plantar aspect of the foot and the nonhealing prior toe amputations below-knee amputation was indicated. The patient has signed the informed consent after reviewing risks, complications, benefits, and alternatives previously discussed with the patient. The patient was given the opportunity to ask any additional questions or voice any concerns. All questions were answered to the patient's satisfaction. Procedure in detail: Patient was brought to the operating room prior to which a time-out was called for patient identification and site verification. Right leg was prepped and draped in standard surgical fashion. Curvilinear incision was made approximately 10 cm below the tibial tuberosity. Curvilinear incision was made over the tibia. And a posterior flap was made through the skin. Prior to incision we did insufflate a tourniquet. This was up to 250 mmHg. Once we did that we took the muscle and the gastroc and this was dissected with electrocautery. We did find the anterior tibial and posterior tibial vessels and this was ligated with 3-0 silk ties. In addition we found the peroneal and this was subsequently ligated. Once we were through the skin and tissue. We then turned our attention to the tibia. We did a reverse hockey stick incision. Once this was accomplished we then transected fibula approximately 2 in above that. We dissected off the posterior flap. And the leg was passed off the table as specimen. We then released the tourniquet. Total tourniquet time was 14 minutes. Once this was done hemostasis was obtained with electrocautery. We then drilled through the tibia with a 2 7th drill bit. We performed myodesis with a 2-0 silk stitch buttressing the muscle against the bone. Once this was done we then irrigated the rest the wound clear. We reapproximated the deep layer and the fascial layer with 2 0 poly Sorb. Superficial layer with 3-0 poly sore. Finally skin with a 2 0 nylon in a mattress fashion approximately 6 or 7 of these were placed. And then the rest of the skin was closed with skin clips. Xeroform and a sterile dressing were applied. At the end of the case sponge instrument counts were correct. Patient tolerated the procedure well. Returned to recovery with stable vitals. This note is constructed using voice recognition software. While every effort has been made to ensure accuracy, registered public health nurse errors may have been included. Thank you for allowing me to participate in the care of your patient. Yours sincerely, John Peguero MD, FACS, R.P.V.I.
[2022-03-04 14:44] LABS: Glucose, Whole Blood 72 mg/dL (60-115)
[2022-03-04] MEDS: fentaNYL citrate/PF 100 MCG/2 ML VIAL 25 MCG IVPUSH ×4 (14:50→15:10)
[2022-03-04] MEDS: Dextrose 5 % 1,000 ML 42 ML IVCONT (14:51)
[2022-03-04] MEDS: HYDROmorphone HCl 0.5 MG/0.5 ML SYRINGE 0.25 MG IVPUSH (15:30)
[2022-03-04 16:24] LABS: Glucose, Whole Blood 145 mg/dL (60-115)
[2022-03-04] MEDS: Insulin Lispro 100 UNIT/ML 3 ML VIAL SUBCUT (19:41)
[2022-03-04] MEDS: Insulin Glargine,Hum.rec.anlog 100 UNIT/ML 10 ML VIAL 40 UNIT SUBCUT (19:41)
[2022-03-04 19:42] LABS: Glucose, Whole Blood 161 mg/dL (60-115)
[2022-03-05] VITALS (11 sets, daily range): BP systolic 123–160; BP diastolic 60–77; PULSE 77–89; RESP 12–20; TEMP 36.2–37.8; O2SAT 92–96
[2022-03-05] MEDS: Acetaminophen 325 MG TABLET 650 MG PO ×4 (01:30→22:41)
[2022-03-05] MEDS: oxyCODONE HCl Immed Release 5 MG TABLET PO ×2 (01:30→07:34)
--- NOTE | 2022-03-05 02:39 | PC.NURSE ---
Pt has not voided since surgery placed on bed elizabeth unable to void.Bladder scanned for >999. notified ordered to st.cath now.St.cath for 1250 ml dark yellow urine.
[2022-03-05] MEDS: Morphine Sulfate 2 MG/ML CARTRIDGE IVPUSH ×2 (05:21→09:35)
[2022-03-05 06:38] LABS: Vancomycin Random 17.2 mcg/mL (15-20)
[2022-03-05 06:42] LABS: Creatinine Clr Calc Pharmacy 83.4; Estimated Glomerular Filt Rate > 60
--- NOTE | 2022-03-05 06:54 | HE.PHANOTE ---
RE KUMAR PATIENT SCR IS 17.2 TODAY. WE WILL BE DECREASING THE DOSE TO 1000MG Q24H, AUC 419 TROUGH 13.6. NEXT TROUGH DUE 03/07 @0600 DEIDRE
[2022-03-05] MEDS: Atorvastatin Calcium 80 MG TABLET PO (07:34)
[2022-03-05] MEDS: Gabapentin 300 MG CAPSULE PO ×3 (07:34→20:36)
[2022-03-05] MEDS: amLODIPine Besylate 10 MG TABLET PO (07:34)
[2022-03-05] MEDS: Docusate Sodium 100 MG CAPSULE 200 MG PO (07:34)
[2022-03-05 07:35] LABS: Glucose, Whole Blood 65 mg/dL (60-115)
[2022-03-05] MEDS: vancomycin HCL 1,000 MG in 0.9 % Sodium Chloride 250 ML 270 MG IV (07:35)
[2022-03-05] MEDS: polyethylene glycoL 3350 17 GM POWD.PACK PO (07:35)
--- NOTE | 2022-03-05 09:19 | HO.VASCPN ---
Subjective Subjective Date of Service: 03/05/22 Patient reports: no new complaints and still having pain Interval history: Pleasant 51-year-old female postop day 1 status post BKA. Reports to be doing relatively well overnight. She did have some pain issues overnight. In general appears to be doing somewhat better. She is with mother at bedside. tolerating a diet no other issues. Physical Exam Vital Signs: Vital Signs: Last Vital Signs Temp 98.6 F 03/05/22 08:00 Pulse 86 03/05/22 08:00 Resp 16 03/05/22 08:00 BP 160/77 H 03/05/22 08:00 Pulse Ox 96 03/05/22 08:00 O2 Del Method 03/05/22 08:00 O2 Flow Rate 2 03/04/22 16:23 BMI result Body Mass Index 36.2 Const: General: cooperative, healthy appearing and no acute distress Orientation/consciousness: oriented to person, oriented to place and oriented to time HEENT: Head: Yes normal to inspection Neck: Carotids: no bruits Chest: Chest palpation & inspection: normal inspection of the chest Resp: Effort & Inspection: normal respiratory effort and able to speak in complete sentences Auscultation: clear to auscultation bilaterally Cardio: Rate: regular rate Heart sounds: S1 normal heart sound present and S2 normal heart sound present GI: Inspection: Yes normal to inspection Skin: Other: BKA amp - dressing clean dry intact General skin exam: no rashes or lesions noted Wounds: no wounds Neuro: General: oriented to person, oriented to place, oriented to time and CN's II-XI intact bilaterally Extrem: General: Yes normal to inspection, Yes full ROM and Yes no clubbing, cyanosis or edema Psych: Appearance: grossly normal and well kempt Speech and movement: Normal speech and movement present Affect: normal affect Progress Note: A&P Assessment and plan (1) Chronic osteomyelitis of right foot: Status: Acute Assessment and Plan: patient is doing well status post below-knee amputation. No other interval issues. Will work on pain control. I did have a discussion with her mother who was at bedside and her daughter who was on the phone. They are agreeable to rehab. Will plan for dressing change tomorrow. If okay should be stable for discharge within the next day or 2. Will check repeat CBC. Time Spent With Patient Time: Total time spent is greater than 50% in coordination of care (as documented) at patient's floor/unit and/or counseling patient: Procedures Date of Service Date of Service: 03/05/22 Quality Stroke Does the patient have a stroke diagnosis?: No VTE Prior VTE?: No VTE Risk Level:: Medical - moderate - high VTE Device Contraindication: Treatment Not Indicated VTE Drug Contraindication: Treatment Not Indicated
[2022-03-05 09:26] LABS: Glucose, Whole Blood 85 mg/dL (60-115)
[2022-03-05] MEDS: Gabapentin 100 MG CAPSULE PO ×2 (09:35→20:36)
--- NOTE | 2022-03-05 09:46 | MHC.CM.PN ---
Addendum entered by Andra Dennis, RN 03/05/22 09:51: REFERRALS: [facility] Original Note: THIS NEW ACCOUNTS REPRESENTATIVE SPOKE WITH PATIENT AND HER DAUGHTER RICK (WITH PERMISSION) RICK [phone] PATIENT IS AGREEABLE OT REHAB AND ASKS FOR [facility] REFERRALS. PATIENT AND RICK ARE AWARE THAT ONCE BED OFFERS ARE OBTAINED, CM WILL MEET WITH BOTH AND GET FIRST CHOICE PLAN IS DC BY FRIDAY
[2022-03-05 10:05] LABS: Basophils Absolute Auto 0.2 X10*3/uL (0.0-0.2); Basophils Percent Auto 0.8 % (0-2); Eosinophils Absolute Auto 0.5 X10*3/uL (0.0-0.4); Eosinophils Percent Auto 2.7 % (0-4); Hematocrit 31.3 % (37.0-47.0); Hemoglobin 9.8 g/dl (12.0-16.0); Imm Gran Pct Auto 0.5 % (0.0-0.4); Lymphocytes Absolute Auto 2.3 X10*3/uL (1.2-4.9); Lymphocytes Percent Auto 12.3 % (20-40); MANUAL DIFF FLAG SCAN; Mean Corpuscular HGB Conc 31.3 g/dl (31.0-35.0); Mean Platelet Volume 9.4 fL (9.4-12.3); Monocytes Absolute Auto 1.8 X10*3/uL (0.1-1.2); Monocytes Percent Auto 9.2 % (2-11); Neutrophils Absolute Auto 14.1 x10*3/uL (2.0-8.3); Neutrophils Percent Auto 74.5 % (45-73); Platelet Count 476 X10*3/uL (160-400); Red Blood Count 3.77 X10*6/uL (4.20-5.50); Red Cell Distribution Width 14.6 % (11.0-16.0); SCAN SMEAR FLAG 1
[2022-03-05 10:26] LABS: SLIDE REVIEW VERIFIED
[2022-03-05 11:23] LABS: Glucose, Whole Blood 76 mg/dL (60-115)
--- NOTE | 2022-03-05 11:30 | HO.POSTANES ---
Post Anesthesia Evaluation Post Anesthesia Evaluation Vital Signs: Vital Signs Temp Pulse Resp BP Pulse Ox O2 Del Method 03/05/22 09:59 86 160/77 H 96 03/05/22 10:19 Room Air 03/05/22 09:35 18 03/05/22 08:00 98.6 F 86 16 160/77 H 96 Room Air 03/05/22 02:45 97.8 F 77 18 157/75 H 92 Room Air Anesthesia: General Mental Status: Awake Pain Control: Satisfactory (Pain overnight) Nausea/Vomiting: None Hydration: Adequate Anesthesia-Related Issues: No Anes. Related Issues
--- NOTE | 2022-03-05 11:53 | MHC.CM.PN ---
PER REQUEST, PATIENT PROVIDED WITH [facility] COUNSELING INFORMATION FOUND ON [employer].
[2022-03-05] MEDS: Morphine Sulfate 2 MG/ML CARTRIDGE 4 MG IVPUSH ×2 (12:48→20:38)
--- NOTE | 2022-03-05 13:02 | P.PNIM_ITS ---
Subjective Subjective Date of Service: 03/05/22 Physical Exam Vital Signs: Vital Signs: Last Vital Signs Temp 97.1 F 03/05/22 11:47 Pulse 89 03/05/22 11:47 Resp 18 03/05/22 12:48 BP 123/61 03/05/22 11:47 Pulse Ox 96 03/05/22 09:59 O2 Del Method 03/05/22 11:47 O2 Flow Rate 2 03/04/22 16:23 BMI result Body Mass Index 36.2 Objective Data Active Medications Acetaminophen (Acetaminophen 325 Mg Tablet) 650 mg PO Q6H PRN PRN Reason: Pain, Mild (Pain Scale 1-3) Last Admin: 03/05/22 07:34 Dose: 650 mg Documented By: COTEMA Amlodipine Besylate (Amlodipine Besylate 10 Mg Tablet) 10 mg PO DAILY [facility]; Protocol Last Admin: 03/05/22 07:34 Dose: 10 mg Documented By: COTEMA Atorvastatin Calcium (Atorvastatin Calcium 80 Mg Tablet) 80 mg PO DAILY [facility] Last Admin: 03/05/22 07:34 Dose: 80 mg Documented By: MCKENZIEEMA Dextrose (Dextrose 50 % 25 Gm/50 Ml Syringe) 25 gm IVPUSH Q15M PRN; Protocol PRN Reason: per Hypoglycemia Standing Ord. Last Admin: 03/04/22 11:18 Dose: 25 gm Documented By: MCKENZIEEMA Docusate Sodium (Docusate Sodium 100 Mg Capsule) 200 mg PO DAILY [facility] Last Admin: 03/05/22 07:34 Dose: 200 mg Documented By: COTEMA Gabapentin (Gabapentin 300 Mg Capsule) 300 mg PO TID [facility] Last Admin: 03/05/22 07:34 Dose: 300 mg Documented By: COTEMA Gabapentin (Gabapentin 100 Mg Capsule) 100 mg PO BID [facility] Last Admin: 03/05/22 09:35 Dose: 100 mg Documented By: MCKENZIEEMA Glucose (Glucose Gel 15 Gm Gel..Gram.) 15 gm PO Q15M PRN; Protocol PRN Reason: per Hypoglycemia Standing Ord. Meropenem 1 gm/ Sodium (Chloride) 100 mls @ 200 mls/hr IV Q12H [facility] Last Admin: 03/05/22 12:48 Dose: 200 mls/hr Documented By: MCKENZIEEMA Vancomycin HCl 1,000 mg/ (Sodium Chloride) 270 mls @ 270 mls/hr IV Q24H [facility] Last Infusion: 03/05/22 08:38 Dose: 0 mls/hr Documented By: CARMITA Insulin Glargine (Insulin Glargine,Hum.Rec.Anlog 100 Unit/Ml 10 Ml Vial) 40 unit SUBCUT BEDTIME [facility] Last Admin: 03/04/22 19:41 Dose: 40 unit Documented By: GHASSAN Insulin Human Lispro (Insulin Lispro 100 Unit/Ml 3 Ml Vial) 0.1 - 10 unit SUBCUT QIDACHS [facility]; Protocol Last Admin: 03/05/22 11:23 Dose: Not Given Documented By: CARMITA Non-Admin Reason: No Insulin Coverage Melatonin (Melatonin 3 Mg Tablet) 6 mg PO BEDTIME PRN PRN Reason: Insomnia Last Admin: 02/27/22 20:55 Dose: 6 mg Documented By: PASCALE-JUDITH Morphine Sulfate (Morphine Sulfate 2 Mg/Ml Cartridge) 2 mg IVPUSH Q5M PRN; Protocol PRN Reason: moderate pain Morphine Sulfate (Morphine Sulfate 2 Mg/Ml Cartridge) 4 mg IVPUSH Q4H PRN; Protocol PRN Reason: Pain, Severe (Pain Scale 7-10) Last Admin: 03/05/22 12:48 Dose: 4 mg Documented By: CARMITA Ondansetron HCl (Ondansetron Hcl 4 Mg/2 Ml Vial) 4 mg IVPUSH Q8H PRN PRN Reason: Nausea and Vomiting Last Admin: 02/27/22 00:43 Dose: 4 mg Documented By: PASCALE-GERI Ondansetron HCl (Ondansetron Hcl 4 Mg/2 Ml Vial) 4 mg IVPUSH ONCE PRN PRN Reason: Nausea and Vomiting Oxycodone HCl (Oxycodone Hcl Immed Release 5 Mg Tablet) 5 mg PO ONCE PRN PRN Reason: Pain, Severe (Pain Scale 7-10) Oxycodone HCl (Oxycodone Hcl Immed Release 5 Mg Tablet) 10 mg PO Q6H PRN PRN Reason: Pain, Moderate (Pain Scale 4-6 Pharmacy Consult (Consult Rx Vancomycin Dosing) 1 each MISCELLANE DAILY PRN PRN Reason: Consult order Polyethylene Glycol (Polyethylene Glycol 3350 17 Gm Powd.Pack) 17 gm PO DAILY [facility] Last Admin: 03/05/22 07:35 Dose: 17 gm Documented By: CARMITA Sodium Chloride (0.9 % Sodium Chloride Flush 3 Ml Syringe) 3 ml IVFLUSH QSHIFT [facility] Last Admin: 03/05/22 07:14 Dose: Not Given Documented By: CARMITA Non-Admin Reason: IV Running Labs CBC & Chem 7: 03/05/22 09:55 03/05/22 05:14 Labs: Laboratory Results - last 24 hr 03/04/22 03/04/22 03/04/22 14:41 16:19 19:35 MCV MCH MCHC RDW Plt Count MPV Immature Gran % (Auto) Neut % (Auto) Lymph % (Auto) Dare % (Auto) Eos % (Auto) Baso % (Auto) Lymph # (Auto) Dare # (Auto) Eos # (Auto) Baso # (Auto) Abs Immat Gran (auto) Absolute Neuts (auto) Absolute Nucleated RBC Nucleated RBC % (auto) Smear Tech's Comments Estim Creat Clear Calc Estimated GFR POC Glucose 72 145 H 161 H Random Vancomycin 03/05/22 03/05/22 03/05/22 05:14 05:14 07:20 MCV MCH MCHC RDW Plt Count MPV Immature Gran % (Auto) Neut % (Auto) Lymph % (Auto) Dare % (Auto) Eos % (Auto) Baso % (Auto) Lymph # (Auto) Dare # (Auto) Eos # (Auto) Baso # (Auto) Abs Immat Gran (auto) Absolute Neuts (auto) Absolute Nucleated RBC Nucleated RBC % (auto) Smear Tech's Comments Estim Creat Clear Calc 83.4 Estimated GFR > 60 POC Glucose 65 Random Vancomycin 17.2 03/05/22 03/05/22 03/05/22 09:22 09:55 11:03 MCV 83.0 MCH 26.0 L MCHC 31.3 RDW 14.6 Plt Count 476 H MPV 9.4 Immature Gran % (Auto) 0.5 H Neut % (Auto) 74.5 H Lymph % (Auto) 12.3 L Dare % (Auto) 9.2 Eos % (Auto) 2.7 Baso % (Auto) 0.8 Lymph # (Auto) 2.3 Dare # (Auto) 1.8 H Eos # (Auto) 0.5 H Baso # (Auto) 0.2 Abs Immat Gran (auto) 0.10 H Absolute Neuts (auto) 14.1 H Absolute Nucleated RBC 0.000 Nucleated RBC % (auto) 0.0 Smear Tech's Comments VERIFIED Estim Creat Clear Calc Estimated GFR POC Glucose 85 76 Random Vancomycin Assessment and Plan (1) Cellulitis of right foot: Status: Acute (2) AMY (acute kidney injury): Status: Acute (3) Diabetic infection of right foot: Status: Acute (4) Chronic osteomyelitis of right foot: Status: Acute Plan 51-year-old female with pertinent history of insulin-dependent diabetes mellitus with neuropathy, essential hypertension, peripheral vascular disease with history of left transmetatarsal amputation and chronic osteomyelitis of the right foot who was sent to the emergency department by Wound Care for evaluation of right foot wounds. # Diabetic foot infection with infected non-healing wound with cellulitis and chronic right foot osteomyelitis - underwent BKA by Dr. Peguero on 03/04 complaining of pain - blood cultures negative , WBC noted to be elevated likely reactive from surgery - will continue IV meropenem and vancomycin day 6, will discuss duration with vascular surgery - Continue dressing as per vascular surgery, uptitrate pain medication inc. oxycodone 5mg to 10 mg Q 6 hours and IV morphine 4 mg q.4 hours as needed # Acute kidney injury likely pre renal renal function improved s/p IV hydration, - continue to follow bmp while on vanco #Insulin-dependent diabetes mellitus with hyperglycemia - continue diabetic diet insulin sliding scale and Lantus, bs stable. # PAD - likely contributing to her nonhealing wounds, continue aspirin and statin # HTN - stable, continue Norvasc # CHFpEF - compensated, not on home lasix, will follow clinical course # constipation - resolved continue stool softeners, will add as needed lactulose DVT prophylaxis: lovenox Patient need continued inpatient hospitalization for pain management requiring IV pain medication and also wound care post BKA surgery Quality Stroke Does the patient have a stroke diagnosis?: No VTE Prior VTE?: No VTE Risk Level:: Medical - moderate - high VTE Device Contraindication: Treatment Not Indicated VTE Drug Contraindication: Treatment Not Indicated
--- NOTE | 2022-03-05 13:33 | PC.NURSE ---
Patient did not void today. patient stated she felt like she needed to void but could not. patient placed on a bed elizabeth and still could not void. Bladder scan for greater than 999mls. Dr. bullard made aware. order to straight cath pt. straight cath for 1200mls. will continue to monitor.
[2022-03-05] MEDS: oxyCODONE HCl Immed Release 5 MG TABLET 10 MG PO (14:39)
[2022-03-05] MEDS: Enoxaparin Sodium 40 MG/0.4 ML SYRINGE SUBCUT (14:40)
[2022-03-05 15:59] LABS: Glucose, Whole Blood 144 mg/dL (60-115)
[2022-03-05 19:53] LABS: Glucose, Whole Blood 185 mg/dL (60-115)
--- NOTE | 2022-03-05 20:29 | PM.EVENT ---
Event Note Date of Service: 03/05/22 Event Note: Patient with urinary retention, requiring frequent straight cath, currently retaining more than 700. Will place a Barreto catheter. Patient also noted to be hypoglycemic this morning after receiving 40 of Lantus last night. Will reduce her Lantus to 20 mg and increased as appropriate
[2022-03-05] MEDS: Insulin Lispro 100 UNIT/ML 3 ML VIAL SUBCUT (20:36)
[2022-03-05] MEDS: Insulin Glargine,Hum.rec.anlog 100 UNIT/ML 10 ML VIAL 20 UNIT SUBCUT (20:59)
--- NOTE | 2022-03-05 23:54 | PC.NURSE ---
1999; patient has not voided since last straigh cath at 1330. Enouraged patient to void, patient unable to void. Bladder scan for [address] Elizabeth made aware. Order for damon catheter. Resource RN placed damon catheter, patient tolerated well.
[2022-03-06] VITALS (8 sets, daily range): BP systolic 144–160; BP diastolic 64–82; PULSE 77–83; RESP 17–18; TEMP 36.2–37.6; O2SAT 91–94
[2022-03-06 00:43] LABS: Glucose, Whole Blood 143 mg/dL (60-115)
[2022-03-06] MEDS: 0.9 % Sodium Chloride Flush 3 ML SYRINGE IVFLUSH ×4 (00:46→21:56)
[2022-03-06] MEDS: Morphine Sulfate 2 MG/ML CARTRIDGE 4 MG IVPUSH ×3 (00:46→13:18)
[2022-03-06] MEDS: oxyCODONE HCl Immed Release 5 MG TABLET 10 MG PO ×3 (05:10→21:55)
[2022-03-06 06:24] LABS: Hematocrit 30.4 % (37.0-47.0); Hemoglobin 9.4 g/dl (12.0-16.0); Mean Corpuscular HGB Conc 30.9 g/dl (31.0-35.0); Mean Corpuscular Hemoglobin 26.3 pg (27.0-33.0); Mean Corpuscular Volume 84.9 fL (80.0-98.0); Mean Platelet Volume 10.2 fL (9.4-12.3); Platelet Count 472 X10*3/uL (160-400); Red Blood Count 3.58 X10*6/uL (4.20-5.50); Red Cell Distribution Width 14.7 % (11.0-16.0); White Blood Count 23.4 X10*3/uL (4.8-10.8)
[2022-03-06 06:53] LABS: Anion Gap 17 (12-20); Blood Urea Nitrogen 10 mg/dL (9-16); Calcium 7.8 mg/dL (8.4-10.2); Carbon Dioxide 25 mmol/L (22-29); Chloride 103 mmol/L (96-108); Creatinine Clr Calc Pharmacy 84.4; Estimated Glomerular Filt Rate > 60; Glucose Random 67 mg/dL (60-115); Potassium 4.4 mmol/L (3.3-5.1); Sodium 141 mmol/L (135-145)
--- NOTE | 2022-03-06 07:10 | PC.NURSE ---
PATIENT REQUESTING FOR A BLOOD SUGAR CHECK AT APPROX., 0040 SHE FEELS SWEATY, EXPLAINED PERHAPS FROM HER REDUCTION OF PREVIOUS TEMPERATURE AFTER PO APAP, HOWEVER, POC CHECKED FOR SAFE CARE AND RESULTS WERE 143. NO FURTHER SYMPTOMS, WILL CONTINUE TO MONITOR. DSG AND SAMEER WRAP C-D-I TO RIGHT BKA.
[2022-03-06 07:23] LABS: Glucose, Whole Blood 86 mg/dL (60-115)
[2022-03-06] MEDS: Gabapentin 100 MG CAPSULE PO (08:49)
[2022-03-06] MEDS: Acetaminophen 325 MG TABLET 650 MG PO ×3 (08:49→20:24)
[2022-03-06] MEDS: Gabapentin 300 MG CAPSULE PO ×3 (08:49→20:25)
[2022-03-06] MEDS: Atorvastatin Calcium 80 MG TABLET PO (08:49)
[2022-03-06] MEDS: amLODIPine Besylate 10 MG TABLET PO (08:50)
[2022-03-06] MEDS: Docusate Sodium 100 MG CAPSULE 200 MG PO (08:50)
[2022-03-06] MEDS: polyethylene glycoL 3350 17 GM POWD.PACK PO (08:50)
[2022-03-06 11:00] LABS: Glucose, Whole Blood 96 mg/dL (60-115)
--- NOTE | 2022-03-06 11:21 | HO.VASCPN ---
Subjective Subjective Date of Service: 03/06/22 Patient reports: no new complaints and feels better Interval history: Patient is postop day 2 status post right BKA. Doing relatively well. No postprocedure issues. There is a little bit of concern about pain but overall doing relatively well. She also did complain of some phantom pain as well. She is now for postoperative follow-up. Physical Exam Vital Signs: Vital Signs: Last Vital Signs Temp 99.6 F 03/06/22 08:00 Pulse 82 03/06/22 09:33 Resp 18 03/06/22 08:00 BP 147/82 H 03/06/22 09:33 Pulse Ox 92 03/06/22 09:33 O2 Del Method 03/06/22 07:54 O2 Flow Rate 2 03/06/22 08:00 BMI result Body Mass Index 36.2 Const: General: cooperative, healthy appearing and no acute distress Orientation/consciousness: oriented to person, oriented to place and oriented to time HEENT: Head: Yes normal to inspection Neck: Carotids: no bruits Chest: Chest palpation & inspection: normal inspection of the chest Resp: Effort & Inspection: normal respiratory effort and able to speak in complete sentences Auscultation: clear to auscultation bilaterally Cardio: Rate: regular rate Heart sounds: S1 normal heart sound present and S2 normal heart sound present GI: Inspection: Yes normal to inspection Skin: Other: Right stump dressing changed incision looks well healed. General skin exam: no rashes or lesions noted Wounds: amputation site Neuro: General: oriented to person, oriented to place, oriented to time and CN's II-XI intact bilaterally Extrem: General: Yes normal to inspection, Yes full ROM and Yes no clubbing, cyanosis or edema Psych: Appearance: grossly normal and well kempt Speech and movement: Normal speech and movement present Affect: normal affect Progress Note: A&P Assessment and plan (1) Status post below knee amputation of right lower extremity: Status: Acute Assessment and Plan: In short patient is doing extremely well status post BKA. We did have a discussion regarding rehab placement. I do think she will do well with that. We did add gabapentin for phantom pain. She is stable from my perspective for discharge. She can follow up with us in approximately 2 weeks time for suture and staple removal. Time Spent With Patient Time: Total time spent is greater than 50% in coordination of care (as documented) at patient's floor/unit and/or counseling patient: Procedures Date of Service Date of Service: 03/06/22 Quality Stroke Does the patient have a stroke diagnosis?: No VTE Prior VTE?: No VTE Risk Level:: Medical - moderate - high VTE Device Contraindication: Treatment Not Indicated VTE Drug Contraindication: Treatment Not Indicated
[2022-03-06] MEDS: Enoxaparin Sodium 40 MG/0.4 ML SYRINGE SUBCUT (13:19)
--- NOTE | 2022-03-06 14:08 | P.PNIM_ITS ---
Subjective Subjective Date of Service: 03/06/22 Interval History: patient feeling better, good pain control, complaining of phantom pain, denies nausea vomiting or abdominal pain , decreased appetite, bedside dressing change by Dr. Peguero incision looks clean, no drainage noted, noted to have urinary retention therefore Barreto catheter placed since was requiring frequent straight cath Review of Systems [employer] no headache no dizziness CVS no chest pain, no palpitation urinary retention, Review of Systems: Yes all other systems are reviewed and are negative Physical Exam Vital Signs: Vital Signs: Last Vital Signs Temp 98.8 F 03/06/22 12:00 Pulse 83 03/06/22 12:00 Resp 18 03/06/22 12:00 BP 148/67 H 03/06/22 12:00 Pulse Ox 91 L 03/06/22 12:00 O2 Del Method 03/06/22 12:00 O2 Flow Rate 2 03/06/22 08:00 BMI result Body Mass Index 36.2 Const: Other: General, awake alert x3 in no acute distress? Neck supple, no JVD CVS Regular rate and rhythm, S1-S2 heard Respiratory Regular breath sounds bilaterally, no wheezing , no rhonchi Abdomen soft nontender, no guarding, no rigidity Neuro awake alert x3 speech clear Extremities status post left TMA, BKA incision clean no drainage Psych: Normal mood Objective Data Active Medications Acetaminophen (Acetaminophen 325 Mg Tablet) 650 mg PO Q6H PRN PRN Reason: Pain, Mild (Pain Scale 1-3) Last Admin: 03/06/22 08:49 Dose: 650 mg Documented By: SHANI Amlodipine Besylate (Amlodipine Besylate 10 Mg Tablet) 10 mg PO DAILY [facility]; Protocol Last Admin: 03/06/22 08:50 Dose: 10 mg Documented By: SHANI Atorvastatin Calcium (Atorvastatin Calcium 80 Mg Tablet) 80 mg PO DAILY [facility] Last Admin: 03/06/22 08:49 Dose: 80 mg Documented By: SHANI Dextrose (Dextrose 50 % 25 Gm/50 Ml Syringe) 25 gm IVPUSH Q15M PRN; Protocol PRN Reason: per Hypoglycemia Standing Ord. Last Admin: 03/04/22 11:18 Dose: 25 gm Documented By: CARMITA Docusate Sodium (Docusate Sodium 100 Mg Capsule) 200 mg PO DAILY [facility] Last Admin: 03/06/22 08:50 Dose: 200 mg Documented By: SHANI Enoxaparin Sodium (Enoxaparin Sodium 40 Mg/0.4 Ml Syringe) 40 mg SUBCUT Q24H [facility] Last Admin: 03/06/22 13:19 Dose: 40 mg Documented By: SHANI Gabapentin (Gabapentin 300 Mg Capsule) 300 mg PO TID [facility] Last Admin: 03/06/22 08:49 Dose: 300 mg Documented By: SHANI Gabapentin (Gabapentin 100 Mg Capsule) 100 mg PO BID [facility] Last Admin: 03/06/22 08:49 Dose: 100 mg Documented By: SHANI Glucose (Glucose Gel 15 Gm Gel..Gram.) 15 gm PO Q15M PRN; Protocol PRN Reason: per Hypoglycemia Standing Ord. Insulin Glargine (Insulin Glargine,Hum.Rec.Anlog 100 Unit/Ml 10 Ml Vial) 20 unit SUBCUT BEDTIME [facility] Last Admin: 03/05/22 21:02 Dose: Not Given Documented By: SANDOVAL Non-Admin Reason: Duplicate Order Insulin Human Lispro (Insulin Lispro 100 Unit/Ml 3 Ml Vial) 0.1 - 10 unit SUBCUT QIDACHS [facility]; Protocol Last Admin: 03/06/22 12:00 Dose: Not Given Documented By: SHANI Non-Admin Reason: No Insulin Coverage Lactulose (Lactulose 20 Gm/30 Ml Solution) 10 gm PO DAILY PRN PRN Reason: Constipation Melatonin (Melatonin 3 Mg Tablet) 6 mg PO BEDTIME PRN PRN Reason: Insomnia Last Admin: 02/27/22 20:55 Dose: 6 mg Documented By: ELDER Morphine Sulfate (Morphine Sulfate 2 Mg/Ml Cartridge) 4 mg IVPUSH Q4H PRN; Protocol PRN Reason: Pain, Severe (Pain Scale 7-10) Last Admin: 03/06/22 13:18 Dose: 4 mg Documented By: SHANI Ondansetron HCl (Ondansetron Hcl 4 Mg/2 Ml Vial) 4 mg IVPUSH Q8H PRN PRN Reason: Nausea and Vomiting Last Admin: 02/27/22 00:43 Dose: 4 mg Documented By: MARCK Ondansetron HCl (Ondansetron Hcl 4 Mg/2 Ml Vial) 4 mg IVPUSH ONCE PRN PRN Reason: Nausea and Vomiting Oxycodone HCl (Oxycodone Hcl Immed Release 5 Mg Tablet) 5 mg PO ONCE PRN PRN Reason: Pain, Severe (Pain Scale 7-10) Oxycodone HCl (Oxycodone Hcl Immed Release 5 Mg Tablet) 10 mg PO Q6H PRN PRN Reason: Pain, Moderate (Pain Scale 4-6 Last Admin: 03/06/22 05:10 Dose: 10 mg Documented By: JAX Pharmacy Consult (Consult Rx Vancomycin Dosing) 1 each MISCELLANE DAILY PRN PRN Reason: Consult order Polyethylene Glycol (Polyethylene Glycol 3350 17 Gm Powd.Pack) 17 gm PO DAILY [facility] Last Admin: 03/06/22 08:50 Dose: 17 gm Documented By: SHANI Sodium Chloride (0.9 % Sodium Chloride Flush 3 Ml Syringe) 3 ml IVFLUSH QSHIFT [facility] Last Admin: 03/06/22 08:50 Dose: 3 ml Documented By: SHANI Labs CBC & Chem 7: 03/06/22 05:30 03/06/22 05:30 Labs: Laboratory Results - last 24 hr 03/05/22 03/05/22 03/06/22 15:45 19:18 00:37 MCV MCH MCHC RDW Plt Count MPV Absolute Nucleated RBC Nucleated RBC % (auto) Anion Gap Estim Creat Clear Calc Estimated GFR POC Glucose 144 H 185 H 143 H Random Glucose Calcium 03/06/22 03/06/22 03/06/22 05:30 05:30 07:20 MCV 84.9 MCH 26.3 L MCHC 30.9 L RDW 14.7 Plt Count 472 H MPV 10.2 Absolute Nucleated RBC 0.000 Nucleated RBC % (auto) 0.0 Anion Gap 17 Estim Creat Clear Calc 84.4 Estimated GFR > 60 POC Glucose 86 Random Glucose 67 Calcium 7.8 L 03/06/22 10:56 MCV MCH MCHC RDW Plt Count MPV Absolute Nucleated RBC Nucleated RBC % (auto) Anion Gap Estim Creat Clear Calc Estimated GFR POC Glucose 96 Random Glucose Calcium Assessment and Plan (1) Cellulitis of right foot: Status: Acute (2) AMY (acute kidney injury): Status: Acute (3) Diabetic infection of right foot: Status: Acute (4) Chronic osteomyelitis of right foot: Status: Acute Plan 51-year-old female with pertinent history of insulin-dependent diabetes mellitus with neuropathy, essential hypertension, peripheral vascular disease with history of left transmetatarsal amputation and chronic osteomyelitis of the right foot who was sent to the emergency department by Wound Care for evaluation of right foot wounds. # Diabetic foot infection with infected non-healing wound with cellulitis and chronic right foot osteomyelitis - underwent BKA by Dr. Peguero on 03/04 POD # 2 pain better controlled - blood cultures negative , WBC noted to be elevated likely reactive from surgery - will DC IV meropenem and vancomycin receive antibiotic x7 days - Continue dressing as per vascular surgery, inc. oxycodone 10 mg to q.4 hours as needed and will discontinue IV morphine, will place on Tylenol twice daily, patient on Neurontin 300 t.i.d. that will help with phantom pain wean o2. # Acute kidney injury likely pre renal renal function improved s/p IV hydration, #Insulin-dependent diabetes mellitus noted to have low blood sugars post surgery therefore dose of Lantus reduced to 20 units continue to follow blood sugars q.i.d. a.c. # PAD likely contributing to her nonhealing wounds, continue aspirin and statin # HTN - stable, continue Norvasc # CHFpEF- compensated, not on home lasix, will follow clinical course # constipation continue stool softeners, Colace, MiraLax and as needed lactulose # urinary retention patient has history of urine retention after anaesthesia after prior surgeries noted to have high bladder scan requiring frequent straight cath therefore placed on Barreto catheter DVT prophylaxis: lovenox Patient need continued inpatient hospitalization for pain management requiring IV pain medication and also wound care post BKA surgery Quality Stroke Does the patient have a stroke diagnosis?: No VTE Prior VTE?: No VTE Risk Level:: Medical - moderate - high VTE Device Contraindication: Treatment Not Indicated VTE Drug Contraindication: Treatment Not Indicated
[2022-03-06 16:21] LABS: Glucose, Whole Blood 120 mg/dL (60-115)
[2022-03-06] MEDS: Insulin Glargine,Hum.rec.anlog 100 UNIT/ML 10 ML VIAL 20 UNIT SUBCUT (20:24)
[2022-03-06 20:57] LABS: Glucose, Whole Blood 143 mg/dL (60-115)
[2022-03-07 03:44] VITALS: BP 143/70; PULSE 82; RESP 18; TEMP 36.7; O2SAT 95
[2022-03-07] MEDS: oxyCODONE HCl Immed Release 5 MG TABLET 10 MG PO ×3 (05:40→11:48)
[2022-03-07 06:46] LABS: Vancomycin Random 6.6 mcg/mL (15-20)
[2022-03-07 07:35] VITALS: BP 155/81; PULSE 86; RESP 18; TEMP 36.9; O2SAT 94
[2022-03-07 07:46] LABS: Glucose, Whole Blood 124 mg/dL (60-115)
[2022-03-07] MEDS: amLODIPine Besylate 10 MG TABLET PO (08:30)
[2022-03-07] MEDS: Acetaminophen 325 MG TABLET 650 MG PO ×2 (08:31→14:30)
[2022-03-07] MEDS: Docusate Sodium 100 MG CAPSULE 200 MG PO (08:31)
[2022-03-07] MEDS: polyethylene glycoL 3350 17 GM POWD.PACK PO (08:31)
[2022-03-07] MEDS: Atorvastatin Calcium 80 MG TABLET PO (08:31)
[2022-03-07] MEDS: 0.9 % Sodium Chloride Flush 3 ML SYRINGE IVFLUSH (08:31)
[2022-03-07] MEDS: Gabapentin 300 MG CAPSULE PO ×2 (08:31→14:30)
[2022-03-07 10:00] VITALS: O2SAT 96
[2022-03-07 10:34] LABS: COVID-19 Test Negative (Negative); IDNOW Serial# 16C4AD1C
[2022-03-07 11:01] VITALS: BP 143/67; PULSE 88; RESP 18; TEMP 36.2; O2SAT 91
[2022-03-07 11:17] VITALS: BP 143/67; PULSE 88; O2SAT 91
[2022-03-07 11:22] LABS: Glucose, Whole Blood 126 mg/dL (60-115)
[2022-03-07] MEDS: ondansetron HCL 4 MG/2 ML VIAL IVPUSH (11:25)
--- NOTE | 2022-03-07 12:12 | P.DS_ITS ---
DS: Providers Provider Date of Service: 03/07/22 Date of admission: 02/27/22 00:00 Primary care physician: Farhana Ellison MD Consults: 02/27/22 00:03 Consult to Vascular Surgery Routine Consulting Provider: John Peguero Reason for consultation: Lower extremity wound ; PVD Has provider been notified: No 02/27/22 00:21 Consult to Infectious Diseases Routine Consulting Provider: Reanna Graves Reason for consultation: infected right foot wound DS: Diagnosis Discharge Diagnosis (1) Cellulitis of right foot: Status: Acute (2) AMY (acute kidney injury): Status: Acute (3) Diabetic infection of right foot: Status: Acute (4) Chronic osteomyelitis of right foot: Status: Acute DS: Summary Hospital Course Hospital Course: history of presenting illness Date of Service: 02/27/22 Chief Complaint: Infected wound This is a 51-year-old female with pertinent history of insulin-dependent diabetes mellitus with neuropathy, essential hypertension, peripheral vascular disease with history of left transmetatarsal amputation and chronic osteomyelitis of the right foot who was sent to the emergency department by Wound Care for evaluation of right foot wounds.? Patient was recently admitted with infected nonhealing right foot wound and cellulitis and discharged on 02/18 with p.o. Levaquin after her wounds improved with IV antibiotics. Patient states she completed her Levaquin course but developed blisters and new wound to the medial aspect of her right foot which has been draining foul-smelling purulent discharge.? Wound Care saw the patient at home and sent her to the ER for further evaluation. She endorses right foot pain.? Patient denies fever, chills, nausea, vomiting, chest discomfort, palpitations, shortness of breath, abdominal pain, changes in urinary or bowel habits. hospital course 51-year-old female with pertinent history of insulin-dependent diabetes mellitus with neuropathy, essential hypertension, peripheral vascular disease with history of left transmetatarsal amputation and chronic osteomyelitis of the right foot who was sent to the emergency department by Wound Care for evaluation of right foot wounds. # Diabetic foot infection with infected non-healing wound with cellulitis and chronic right foot osteomyelitis, patient admitted to medical floor treated with IV meropenem and vancomycin, subsequently seen by vascular surgery and Infectious Disease and due to less likelihood of responding to antibiotics patient underwent Rt. BKA by Dr. Peguero on 03/04 POD # 3,? pain better controlled, worse after physical therapy, blood cultures are negative noted to have elevated WBC likely reactive from surgery no further antibiotic planned incision site is clean with no drainage, recommend to take oxycodone 10 mg q.4 hours as needed and scheduled Tylenol patient is on Neurontin 300 t.i.d. that will help with phantom pain, main crease dose if needed. # Acute kidney injury Resolved, was likely pre renal renal function improved s/p IV hydration, #Insulin-dependent diabetes mellitus? noted to have low blood sugars post surgery therefore dose of Lantus reduced to 20 units continue to follow blood sugars q.i.d. a.c. continue insulin sliding scale home dose of Lantus 90 units # PAD? continue aspirin and statin # HTN - stable, continue Norvasc # CHFpEF- compensated, not on home lasix # constipation continue stool softeners,? Colace, MiraLax and as needed lactulose # urinary retention patient has history of urine retention after anaesthesia after prior surgeries noted to have high bladder scan requiring frequent straight cath therefore placed on Barreto catheter Time Spent with Patient Time attestation: Total time spent providing and/or coordinating discharge services: Discharge coordination time: Greater than 30 minutes Quality: Safe Use of Opioids Does Pt have an Active Cancer Diagnosis on the Problem List?: No Quality: Stroke Does the patient have a stroke diagnosis?: No Physical Exam Vital Signs: Vital Signs: Last Vital Signs Temp 97.1 F 03/07/22 11:01 Pulse 88 03/07/22 11:17 Resp 18 03/07/22 11:01 BP 143/67 H 03/07/22 11:17 Pulse Ox 91 L 03/07/22 11:17 O2 Del Method 03/07/22 11:01 O2 Flow Rate 1 03/07/22 07:35 Oxygen Flow Rate 1 03/07/22 10:00 BMI result Body Mass Index 36.2 Const: Other: General, awake alert x3 in no acute distress? Neck supple, no JVD CVS Regular rate and rhythm, S1-S2 heard Respiratory Regular breath sounds bilaterally, no wheezing , no rhonchi Abdomen soft nontender, no guarding, no rigidity Neuro awake alert x3 speech clear Extremities status post left TMA,? BKA incision clean no drainage Psych: Normal mood DS: Data Data Completed and Pending Completed studies during hospitalization [Text1]: Pending at discharge 03/04/22 13:53 Surgical [PTH] Routine Procedures Detachment at Right 4th Toe, Complete, Open Approach (11/29/21) Excision of Right Foot Skin, External Approach (11/29/21) Fluoroscopy of Aorta and Bilateral Lower Extremity Arteries (02/11/21) Insertion of Infusion Device into Superior Vena Cava, Percutaneous Approach (02/05/22) Insertion of Infusion Device into Upper Vein, Percutaneous Approach (02/05/22) Ultrasonography of Superior Vena Cava, Guidance (02/05/22) Labs on day of discharge: Laboratory Results - last 24 hr 03/06/22 03/06/22 03/07/22 16:16 20:30 05:26 POC Glucose 120 H 143 H Random Vancomycin 6.6 L COVID-19 ([facility]) COVID-19 Clin Com 03/07/22 03/07/22 03/07/22 07:34 10:10 10:59 POC Glucose 124 H 126 H Random Vancomycin COVID-19 ([facility]) Negative COVID-19 Clin Com See Note Discharge Plan Discharge Anticipated Discharge Date/Time: 03/07/22 12:03 Patient Disposition: Xfer SNF Discharge Diagnosis: right foot nonhealing wound with chronic osteomyelitis status post BKA acute kidney injury urinary retention Referrals: [facility] [Outside] - 1 Day (Transfer to [facility] for short term rehab) Farhana Ellison MD [Primary Care Provider] - 1 Week Discharge Medications: New acetaminophen 325 mg Tablet 650 mg PO TID Qty: 30 0RF oxycodone 5 mg Tablet 10 mg PO Q4H PRN (Reason: Pain, Moderate (Pain Scale 4-6) Qty: 30 0RF Rx Instructions: Partial Fill upon patient request. docusate sodium 100 mg Capsule 200 mg PO DAILY Qty: 30 0RF polyethylene glycol 3350 17 gram Powder In Packet 17 g PO DAILY Qty: 30 0RF insulin lispro [Humalog U-100 Insulin] 100 unit/mL Solution 0.1 - 10 unit subcut QIDACHS Qty: 10 0RF Protocol: Insulin Normal Sensitivity 1st 24 hrs Less than or equal to 110 ---- Give (units): 0 111 to 150 Give (units): 0 151 to 200 Give (units): 2 201 to 250 Give (units): 4 251 to 300 Give (units): 6 301 to 350 Give (units): 8 Greater than 350 Give (units): 10 Call MD if Blood Glucose > : 350 Continued mecobalamin (vitamin B12) 1,000 mcg tablet,disintegrating 1,000 mcg sublingual DAILY Qty: 30 2RF Rx Instructions: place tablet under tongue and allow to dissolve for at least30 secs before swallowing gabapentin 300 mg capsule 1 cap PO TID amlodipine 10 mg tablet 1 tab PO DAILY aspirin 81 mg Tablet,Chewable 81 mg PO DAILY urea 20 % cream 1 appl topical DAILY atorvastatin 80 mg Tablet 80 mg PO DAILY (DME) blood-glucose meter [FreeStyle [place] Lite] Kit See Rx Instructions .ROUTE TID Qty: 1 Rx Instructions: As directed Changed insulin glargine [Lantus U-100 Insulin] 100 unit/mL solution 20 unit subcut BEDTIME Qty: 10 0RF Discontinued insulin aspart U-100 [Novolog U-100 Insulin aspart] 100 unit/mL solution 25 unit subcut TIDAC Trulicity 0.75 mg/0.5 mL Pen Injector 0.75 mg SUBCUT TU@1000 naproxen 500 mg Tablet 500 mg PO BID PRN (Reason: Headache) levofloxacin 500 mg tablet 500 mg PO DAILY Qty: 7 0RF Discharge Orders: Discharge Order (Routine); Ordered 03/07/22 Ordered By: Brynn Kwong Diet: Diabetic diet Activity on Discharge: As tolerated Stand Alone Forms: Patient Portal Discharge page Activity Restrictions/Additional Instructions: Wound care upon discharge: xeroform, 4x4 and Kerlix wrap to be changed daily. Please call Dr. Peguero at [phone] for 2 week follow up for suture and staple removal Care Plan Goals: right BKA take pain medications as ordered, continue PT as tolerated diabetes mellitus follow diabetic diet and adjust dose of insulin if noted to have elevated blood sugars Health Concerns: take all home medications as above Plan of Treatment: outpatient follow-up with Dr. Peguero in 2 weeks Assessment: as above Discharge Date/Time: 03/07/22 15:18
--- NOTE | 2022-03-07 12:21 | MHC.CM.PN ---
DP: PT HAS BEEN MEDICALLY CLEARED FOR DISCHARGE TO [facility] FOR STR. PT/FAMILY MADE AWARE. RN AWARE. BLS TRANSPORT BOOKED FOR 2 PM WITH [facility].
[2022-03-07 13:07] LABS: Hematocrit 30.3 % (37.0-47.0); Hemoglobin 9.4 g/dl (12.0-16.0); Mean Corpuscular Volume 83.9 fL (80.0-98.0); Mean Platelet Volume 9.6 fL (9.4-12.3); Platelet Count 508 X10*3/uL (160-400); Red Blood Count 3.61 X10*6/uL (4.20-5.50); Red Cell Distribution Width 14.7 % (11.0-16.0); White Blood Count 21.2 X10*3/uL (4.8-10.8)
== END 2022-03-07 15:18 | disposition skilled nursing facility (03) | DRG 305 ==
LOC: HO.ED 23:24 → HO.EDOVER 02-27 00:07 → HO.S3 02-27 18:54
PROVIDERS: Internal Medicine; Surgery Vascular Surgery; Admitting Provider Student in an Organized Health Care Education/Training Program; Emergency Provider Internal Medicine; PCP Internal Medicine; Visit Provider Hospitalist
PROC: 0Y6H0Z2 Detachment at Right Lower Leg, Mid, Open Approach (ICD-10-PCS; CPT 27880; principal; 2022-03-04 10:40)
DX: E11.69 Type 2 diabetes mellitus with other specified complication (principal); M86.171 Other acute osteomyelitis, right ankle and foot; E11.51 Type 2 diabetes mellitus with diabetic peripheral angiopathy without gangrene; F32.0 Major depressive disorder, single episode, mild; I11.0 Hypertensive heart disease with heart failure; I50.32 Chronic diastolic (congestive) heart failure; G54.6 Phantom limb syndrome with pain; E11.621 Type 2 diabetes mellitus with foot ulcer; E11.42 Type 2 diabetes mellitus with diabetic polyneuropathy; M86.671 Other chronic osteomyelitis, right ankle and foot; L97.419 Non-pressure chronic ulcer of right heel and midfoot with unspecified severity; R33.9 Retention of urine, unspecified; E11.649 Type 2 diabetes mellitus with hypoglycemia without coma; E11.65 Type 2 diabetes mellitus with hyperglycemia; K59.00 Constipation, unspecified; Z20.822 Contact with and (suspected) exposure to COVID-19; Z79.4 Long term (current) use of insulin; Z79.82 Long term (current) use of aspirin; Z79.899 Other long term (current) drug therapy
CPT/HCPCS: 36415; 80048; 80202; 82565; 82947; 83605; 85014; 85018; 85025; 85027; 86850; 86900; 86901; 86923; 87040; 87635; 88307; 88311; 97110; 97162; 97530; 99285; C1758; J1170; J1650; J2185; J2250; J2270; J2405; J2543; J2795; J3010; J3370; P9016

== ENCOUNTER → 2022-03-21 09:44 | Outpatient (BNVA) | payer OTHER, SELFPAY | PROVIDERS: PCP Internal Medicine; Visit Provider Surgery Vascular Surgery | DX: Z89.511 Acquired absence of right leg below knee (principal) | CPT/HCPCS: 99212 ==

== ENCOUNTER → 2022-04-01 09:25 | Outpatient (BNVA) | payer OTHER, SELFPAY | PROVIDERS: PCP Internal Medicine; Visit Provider Surgery Vascular Surgery | DX: Z89.511 Acquired absence of right leg below knee (principal) | CPT/HCPCS: 99212 ==

== ENCOUNTER → 2022-05-07 14:53 | Outpatient (BNVA) | payer OTHER, SELFPAY | PROVIDERS: PCP Internal Medicine; Visit Provider Surgery Vascular Surgery | DX: Z89.511 Acquired absence of right leg below knee (principal) | CPT/HCPCS: 99212 ==

== ENCOUNTER → 2022-05-28 15:23 | Outpatient (BNVA) | payer OTHER, SELFPAY | PROVIDERS: PCP Internal Medicine; Visit Provider Surgery Vascular Surgery | DX: T87.89 Other complications of amputation stump (principal); Z89.511 Acquired absence of right leg below knee | CPT/HCPCS: 99212 ==

== ENCOUNTER 2022-05-31 11:08 | Outpatient (REF) | payer OTHER, SELFPAY ==
[2022-05-31 11:36] LABS: Appearance Urine Clear; Color Urine Yellow; Glucose Urine UA 250 mg/dL (Negative); Leukocyte Esterase Urine Trace (Negative); Nitrite Urine Negative (Negative); Specific Gravity - Urine 1.015 (1.005-1.025); UMIC TRIGGER UA YES; Urine Blood Trace (Negative); Urine Ketones Negative (Negative); Urine Protein 300 (3+) mg/dL (Neg-Trace)
[2022-05-31 11:40] LABS: Bacteria Urine 1+ (None Seen); Hyaline Casts Urine 0-2 /LPF (0-2); RBC Urine 0-2 /HPF (0-2); Squamous Epithelial Cell Urine 0-2 /HPF (0-2); WBC Urine 21-50 /HPF (0-5)
== END 2022-05-31 11:09 | disposition home or self-care (01) ==
LOC: HO.HVNA 11:08
PROVIDERS: Visit Provider Internal Medicine
DX: R33.9 Retention of urine, unspecified (principal); R50.9 Fever, unspecified
CPT/HCPCS: 81001; 87086; 87088; 87186

== ENCOUNTER 2022-06-02 10:37 | Outpatient (REF) | payer OTHER, SELFPAY ==
[2022-06-02 10:47] LABS: Basophils Absolute Auto 0.2 X10*3/uL (0.0-0.2); Eosinophils Absolute Auto 0.5 X10*3/uL (0.0-0.4); Eosinophils Percent Auto 3.1 % (0-4); Hematocrit 40.2 % (37.0-47.0); Hemoglobin 12.8 g/dl (12.0-16.0); Imm Gran Abs Auto 0.05 X10*3/uL (0.00-0.03); Imm Gran Pct Auto 0.3 % (0.0-0.4); Lymphocytes Absolute Auto 5.2 X10*3/uL (1.2-4.9); MANUAL DIFF FLAG SCAN; Mean Corpuscular HGB Conc 31.8 g/dl (31.0-35.0); Mean Corpuscular Hemoglobin 25.7 pg (27.0-33.0); Mean Corpuscular Volume 80.6 fL (80.0-98.0); Mean Platelet Volume 12.5 fL (9.4-12.3); Monocytes Absolute Auto 0.8 X10*3/uL (0.1-1.2); Monocytes Percent Auto 5.3 % (2-11); Neutrophils Percent Auto 57.3 % (45-73); Platelet Count 349 X10*3/uL (160-400); Red Blood Count 4.99 X10*6/uL (4.20-5.50); Red Cell Distribution Width 13.4 % (11.0-16.0); SCAN SMEAR FLAG 1; White Blood Count 15.6 X10*3/uL (4.8-10.8)
[2022-06-02 10:56] LABS: Estimated Average Glucose 183 mg/dL
[2022-06-02 11:09] LABS: SLIDE REVIEW VERIFIED
[2022-06-02 11:16] LABS: Alanine Aminotransferase 12 U/L (0-31); Albumin Level 3.1 g/dL (3.5-5.0); Alkaline Phosphatase 129 U/L (39-117); Anion Gap 14 (12-20); Aspartate Amino Transferase 14 U/L (5-31); Bilirubin Total 0.2 mg/dL (0.0-1.0); Blood Urea Nitrogen 21 mg/dL (9-16); Calcium 8.9 mg/dL (8.4-10.2); Carbon Dioxide 21 mmol/L (22-29); Chloride 109 mmol/L (96-108); Cholesterol 359 mg/dL; Estimated Glomerular Filt Rate > 60; Glucose Random 54 mg/dL (60-115); HDL Cholesterol 58 mg/dL; LDL Cholesterol Calculated 268 mg/dl; Potassium 3.9 mmol/L (3.3-5.1); Sodium 140 mmol/L (135-145); Total Protein 6.2 g/dL (6.5-8.0); Triglycerides 166 mg/dL
== END 2022-06-02 10:38 | disposition home or self-care (01) ==
LOC: HO.HVNA 10:37
PROVIDERS: PCP Internal Medicine; Visit Provider Internal Medicine
DX: E11.621 Type 2 diabetes mellitus with foot ulcer (principal); E78.00 Pure hypercholesterolemia, unspecified; R53.83 Other fatigue; N18.9 Chronic kidney disease, unspecified
CPT/HCPCS: 36415; 80053; 80061; 83036; 85025

== ENCOUNTER → 2022-06-27 13:50 | Outpatient (BNVA) | payer OTHER, SELFPAY | PROVIDERS: PCP Internal Medicine; Visit Provider Surgery Vascular Surgery | DX: Z89.511 Acquired absence of right leg below knee (principal); E11.65 Type 2 diabetes mellitus with hyperglycemia; E11.69 Type 2 diabetes mellitus with other specified complication; E11.40 Type 2 diabetes mellitus with diabetic neuropathy, unspecified; M86.671 Other chronic osteomyelitis, right ankle and foot; B95.2 Enterococcus as the cause of diseases classified elsewhere; B96.89 Other specified bacterial agents as the cause of diseases classified elsewhere; Z16.21 Resistance to vancomycin; Z79.4 Long term (current) use of insulin | CPT/HCPCS: 99212 ==

== ENCOUNTER → 2022-07-16 11:23 | Outpatient (BNVA) | payer OTHER, SELFPAY | PROVIDERS: PCP Internal Medicine; Visit Provider Surgery Vascular Surgery | DX: I73.9 Peripheral vascular disease, unspecified (principal) | CPT/HCPCS: 99212 ==